=== PATIENT | female | born 1965 | race Caucasian/White ===

== ENCOUNTER → 2021-01-17 13:56 | Outpatient (CLI) | payer MEDICARE, MEDICAID, SELFPAY ==
--- NOTE | 2021-01-17 14:08 | VDLE_ITS ---
Reason For Study: Pain RIGHT LEFT GSV is normal. CFV is compressible, spontaneous, phasic, CFV is compressible, spontaneous, phasic, competent, and demonstrates normal competent and demonstrates normal augmentation. augmentation. FV is compressible, spontaneous, phasic, competent and demonstrates normal augmentation. POP V is compressible, spontaneous, phasic, competent and demonstrates normal augmentation. T/P Trunk is compressible. PTV is compressible. RT PerV is compressible. Procedure This is a venous duplex using B-mode, color flow and spectral Doppler. Exam performed in department. A preliminary report was called and/or faxed to [facility]. VL/Venous Duplex US, Unilateral Interpretation Summary There is no evidence of right lower extremity deep vein thrombosis. Right great saphenous vein appears patent and compressible segmentally. Normal flow patterns left common f emoral vein Ordering Physician: Reji Carr Referring Physician: Reji Carr Performed By: Elizabeth Spann RVT
== END ==
PROVIDERS: PCP Nurse Practitioner Primary Care; Referring Provider Nurse Practitioner Primary Care; Visit Provider Nurse Practitioner Primary Care
DX: M79.661 Pain in right lower leg (principal); I83.811 Varicose veins of right lower extremity with pain
CPT/HCPCS: 93971

== ENCOUNTER 2022-12-20 12:47 | Emergency (ER) | payer MEDICARE, MEDICAID, SELFPAY ==
[2022-12-20 12:48] VITALS: BP 141/99; PULSE 80; RESP 18; TEMP 36.4; O2SAT 92
--- NOTE | 2022-12-20 12:58 | CT_ITS ---
STUDY: CT ABDOMEN AND PELVIS WITH CONTRAST REASON FOR EXAM: Female, 57 years old. LLQ abd pain RADIATION DOSAGE (If Supplied By Facility): CTDIvol = ( 21.67 ) mGy, DLP = ( 1243.11 ) mGycm TECHNIQUE: Transaxial images were obtained from the dome of the diaphragm to the symphysis pubis without oral contrast. IV 100mL Isovue-370 was administered. Sagittal and coronal images were reconstructed. Individualized dose optimization techniques were used for this CT. COMPARISON: None. FINDINGS: There is elevation of the left hemidiaphragm with lower lung atelectasis. The visualized portions of the heart are within normal limits. Normal liver. There is non-visualization of the gallbladder, which may be secondary to either contraction or a prior cholecystectomy. Normal spleen. Normal pancreas. There is left adrenal enlargement. Normal right kidney. Normal left kidney. Normal visualized stomach. Normal small intestine. There is diverticulosis, with thickening of the descending colon wall, and pericolonic inflammation changes consistent with acute diverticulitis. The appendix is visualized and appears normal. There is diffuse atherosclerotic calcification of the abdominal aorta, without a demonstrated aneurysm. Normal inferior vena cava. Normal retroperitoneum. Normal urinary bladder. There is absence of the uterus consistent with a prior hysterectomy. There is no free fluid in the abdomen or pelvis. Normal abdominal wall. There are diffuse degenerative changes of the visualized lumbar spine. CT/Abdomen/Pelvis W IV Cont ONLY IMPRESSION: Acute diverticulitis. No obstruction or abscess. Electronically Signed: Negrito Hinds MD at 14:26 EDT ,
--- NOTE | 2022-12-20 13:04 | EX.ED.DYSGE1 ---
HPI <TIFFANIE Ornelas - Last Filed: 12/20/22 14:46> History of Present Illness Chief Complaint: Abd Pain Narrative Narrative: Patient is a 57-year-old female with history of COPD, tobacco history, hypertension who presents to the emergency department with 2 weeks of left lower quadrant abdominal pain. Patient states that has been ongoing for the last 2 weeks intermittently, today, pain was the worst in her left lower quadrant feeling like pressure and burning. She did have 2 episodes of vomitus. She denies any change in her bowel habits, denies any urinary symptoms. Denies any fever or chills. PFSH <TIFFANIE Ornelas - Last Filed: 12/20/22 14:46> [facility] Medical History (Updated 12/20/22 @ 14:43 by TIFFANIE Ornelas) COPD (chronic obstructive pulmonary disease) Home Medications albuterol sulfate 2.5 mg/3 mL (0.083 %) solution for nebulization 2.5 mg inhalation Q4H PRN PRN wheezing/sob 12/20/22 [History Last Taken Unknown] albuterol sulfate 90 mcg/actuation aerosol inhaler 90 mcg inhalation Q4H PRN PRN wheezing/sob 12/20/22 [History Last Taken Unknown] budesonide-formoterol HFA 160 mcg-4.5 mcg/actuation aerosol inhaler (Symbicort) 2 inh inhalation BID 12/20/22 [History Last Taken Unknown] bupropion HCl 300 mg 24 hr tablet, extended release 300 mg PO DAILY 12/20/22 [History Last Taken Unknown] ciprofloxacin HCl 500 mg tablet (Cipro) 500 mg PO BID #20 tabs 12/20/22 [Rx Last Taken Unknown] fluticasone propionate 50 mcg/actuation nasal spray,suspension 2 spray intranasal DAILY 12/20/22 [History Last Taken Unknown] furosemide 20 mg tablet 20 mg PO DAILY 12/20/22 [History Last Taken Unknown] hydrochlorothiazide 25 mg tablet 25 mg PO DAILY 12/20/22 [History Last Taken Unknown] ipratropium bromide 0.02 % solution for inhalation 2.5 ml inhalation Q6H PRN PRN wheezing/sob 12/20/22 [History Last Taken Unknown] lorazepam 0.5 mg tablet 0.5 mg PO DAILY 12/20/22 [History Last Taken Unknown] metronidazole 500 mg tablet 500 mg PO TID #30 tabs 12/20/22 [Rx Last Taken Unknown] nitroglycerin 0.4 mg sublingual tablet 0.4 mg sublingual Q5M PRN Chest Pain 12/20/22 [History Last Taken Unknown] ondansetron 4 mg disintegrating tablet 4 mg PO Q8H PRN PRN Nausea #10 tabs 12/20/22 [Rx Last Taken Unknown] oxycodone-acetaminophen 5 mg-325 mg tablet (Percocet) 1 tab PO Q8H PRN pain 3 days #10 tabs 12/20/22 [Rx Last Taken Unknown] potassium chloride 10 mEq capsule,extended release 10 meq PO BID 12/20/22 [History Last Taken Unknown] rosuvastatin 5 mg tablet 5 mg PO QHS 12/20/22 [History Last Taken Unknown] sertraline 50 mg tablet 50 mg PO DAILY 12/20/22 [History Last Taken Unknown] trazodone 100 mg tablet 300 mg PO DAILY 12/20/22 [History Last Taken Unknown] Allergy/AdvReac Type Severity Reaction Status Date / Time diphenhydramine HCl Allergy Anaphylaxis Verified 12/20/22 12:48 [From Benadryl] Penicillins Allergy Rash Verified 12/20/22 12:48 Social History Smoking Status: Current every day smoker tobacco type: cigarettes ROS <TIFFANIE Ornelas - Last Filed: 12/20/22 14:46> ROS ED ROS Narrative Constitutional: Negative for fever, chills, weight loss, weakness Eyes: Negative for vision loss, vision change, double vision ENT: Negative for any sore throat, ear pain, congestion Cardiovascular: Negative for any chest pain, tightness, palpitations Respiratory: Negative for any cough, sputum production, hemoptysis, dyspnea, dyspnea on exertion, orthopnea Gastrointestinal: Negative for any a diarrhea, constipation, blood in stool, blood in vomit. Positive left lower quadrant abdominal pain, nausea, vomiting : Negative for any urinary frequency, dysuria, retention, blood in urine Muscle skeletal: Negative for any muscle joint pain, stiffness, myalgias, arthralgias, neck pain, back pain Neurological: Negative for any headache, syncope, numbness or tingling, dizziness Skin: Negative for any rashes, lumps, itching, abrasions, lacerations Psychiatric: Negative for any depression, anxiety, stress, suicidal ideation, homicidal ideation Hematologic: Negative for any easy bruising, excessive bruising, easy bleeding Allergies: Negative for any eczema, hives, rash EXAM <TIFFANIE Ornelas - Last Filed: 12/20/22 14:46> Physical Exam Narrative Exam Narrative: Vital signs reviewed. HEET: Head normocephalic atraumatic, TMs clear bilaterally. Posterior pharynx is clear, moist mucous membranes. Nares clear bilaterally. Neck: Supple with no lymphadenopathy or tenderness. No signs of meningismus, negative jolt sign. Cardiac: Regular rate and rhythm no murmurs gallops or rubs, equal peripheral pulses bilaterally. Respiratory: Lungs clear to auscultation bilaterally. No chest tenderness. Abdomen: Soft, nondistended. No abdominal bruit or pulsatile masses. No hepatosplenomegaly. Patient has pain to the left lower quadrant palpation. Active bowel sounds in all quadrants. Negative for any Smith sign. No pain to the right lower quadrant. Extremities: No peripheral edema, no signs of gross trauma or deformity. Active full range of motion of all extremities. Neuro: Cranial nerves II through XII intact, no focal neurological deficits. Skin: Clean dry and intact with no rash, purpura, petechiae, vesicles or pustules. Backs/flank: No CVA tenderness, no midline spinal tenderness, no deformity. Psych: Normal mood and affect. No SI, HI or acute psychosis. Const Vital Signs: 12/20/22 12:48 Temperature 97.6 F L Temperature Source Temporal Pulse Rate 80 Respiratory Rate 18 Blood Pressure 141/99 H Blood Pressure Mean 113 Pulse Ox 92 Oxygen Delivery Method Room Air <Dr. Heriberto Gill MD - Last Filed: 12/20/22 14:08> Physical Exam Const Vital Signs: 12/20/22 12:48 Temperature 97.6 F L Temperature Source Temporal Pulse Rate 80 Respiratory Rate 18 Blood Pressure 141/99 H Blood Pressure Mean 113 Pulse Ox 92 Oxygen Delivery Method Room Air MDM <TIFFANIE Ornelas - Last Filed: 12/20/22 14:46> MDM Lab Data Labs: Laboratory Results - last 24 hr 12/20/22 12/20/22 12/20/22 13:00 13:00 13:15 WBC 11.5 H RBC 5.35 Hgb 16.6 H Hct 49.6 H MCV 92.7 MCH 31.0 MCHC 33.5 RDW Std Deviation 44.9 H RDW Coeff of [place] 13.1 Plt Count 259 MPV 9.2 Immature Gran % (Auto) 0.300 Neut % (Auto) 66.9 Lymph % (Auto) 20.7 [place] % (Auto) 7.1 Eos % (Auto) 4.4 Baso % (Auto) 0.6 Absolute Neuts (auto) 7.7 Absolute Lymphs (auto) 2.38 Nucleated RBC % 0 Sodium 138 Potassium 2.9 L Chloride 100 Carbon Dioxide 34.0 H Anion Gap 4 L BUN 20 H Creatinine 1.12 H Est GFR (MDRD) Af Amer 64 Est GFR (MDRD) Non-Af 53 L BUN/Creatinine Ratio 17.9 Glucose 139 H Calcium 9.2 Urine Color Yellow Urine Clarity Sl. Cloudy Urine pH 5.0 Ur Specific [place] 1.020 Urine Protein 30 H Urine Glucose (UA) Normal Urine Ketones 5 H Urine Occult Blood 250 H Urine Nitrite Negative Urine Bilirubin 1 H Urine Urobilinogen 4 H Ur Leukocyte Esterase 500 H Urine RBC 10-25 SEEN Urine WBC 25-50 SEEN Ur Squamous Epith Cells 5-10 SEEN Urine Bacteria 2+ Urine Mucus 0 SEEN Radiography Diagnostic Testing: Clinical Impression(s) from Imaging Studies Abdomen/Pelvis CT 12/20/22 12:58 IMPRESSION: Acute diverticulitis. No obstruction or abscess. Electronically Signed: Negrito Hinds MD at 14:26 EDT , Treatment and Re-Evaluation :: Patient appears to be in mild distress secondary to left lower quadrant abdominal pain, patient's vital signs are stable, patient appears nontoxic. Patient presents emerged part with left lower quad abdominal pain on and off for 2 weeks much worse today. Patient will receive a full abdominal work-up with CBC, BMP, urinalysis. Patient will receive a CT scan of the abdomen pelvis concerning for diverticulitis, bowel obstruction. Patient's laboratory values show slight leukocytosis white blood count 11.5, H&H showed a hemoglobin of 16.6 with hematocrit of 49.6. Patient potassium was slightly low at 2.9, this was replaced with oral potassium. Patient creatinine was slightly elevated at 1.12 however she is baseline at 0.8-0.9. Glucose is 139. Patient did receive a CT scan of the abdomen pelvis IV contrast. This showed acute diverticulitis, no other obstruction or abscess. Patient was started on Cipro, Flagyl here in the emergency department, this is secondary to her penicillin allergy. She will be given a short course of pain medicine as well. There was possibly that the urine might be infected, this will be treated with the Cipro as well. Patient was given return precautions, all questions were answered. She will follow-up closely with her PCP. She understand that she needs to take the antibiotics until completion. Patient stable for discharge <Dr. Heriberto Gill MD - Last Filed: 12/20/22 14:08> [facility] MDM Narrative Medical decision making narrative: I have personally performed a face to face assessment of the patient and have reviewed the HANK Note. I performed a substantive portion of the visit including all aspects of the following. My huston findings include: History is 57-year-old female prior cholecystectomy and hysterectomy. Presents with a about 2-week history of left lower quadrant abdominal pain. No vomiting or diarrhea. No fever. No dysuria. No prior history of diverticulosis/itis that she is aware of. Denies abdominal trauma. No weight loss. Evaluated this patient with our nurse practitioner. Exam is [57-year-old female no acute distress. Vital signs stable afebrile. HEENT exam normal. Lungs clear. Heart regular rhythm rate about 80. Abdomen soft nondistended. Normal bowel sounds no peritoneal signs. Tender left lower quadrant only. Left upper and right side abdomen are nontender. No McBurney's point tenderness. No hernia. No signs of obstruction. Moving all 4 extremities. Back nontender. Neurologically awake and alert.] Medical Decision Making [57-year-old female left lower quadrant abdominal pain suspicion for diverticulitis versus other etiologies. Abdominal work-up including labs and CT. Treated with morphine and Zofran.] Other additions or changes: [None] History & Record Review Discussion w/independent historian: Patient Additional record(s) reviewed:: Prior inpatient record, Prior outpatient record, Prior ED visit and Prior labs Lab Data Attestation: I reviewed the patient's lab results. Lab results narrative: CBC shows a white count 11.5. H&H is 16 and 49. Platelets 259. Labs: Laboratory Results - last 24 hr 12/20/22 12/20/22 12/20/22 13:00 13:00 13:15 WBC 11.5 H RBC 5.35 Hgb 16.6 H Hct 49.6 H MCV 92.7 MCH 31.0 MCHC 33.5 RDW Std Deviation 44.9 H RDW Coeff of [place] 13.1 Plt Count 259 MPV 9.2 Immature Gran % (Auto) 0.300 Neut % (Auto) 66.9 Lymph % (Auto) 20.7 [place] % (Auto) 7.1 Eos % (Auto) 4.4 Baso % (Auto) 0.6 Absolute Neuts (auto) 7.7 Absolute Lymphs (auto) 2.38 Nucleated RBC % 0 Sodium 138 Potassium 2.9 L Chloride 100 Carbon Dioxide 34.0 H Anion Gap 4 L BUN 20 H Creatinine 1.12 H Est GFR (MDRD) Af Amer 64 Est GFR (MDRD) Non-Af 53 L BUN/Creatinine Ratio 17.9 Glucose 139 H Calcium 9.2 Urine Color Yellow Urine Clarity Sl. Cloudy Urine pH 5.0 Ur Specific [place] 1.020 Urine Protein 30 H Urine Glucose (UA) Normal Urine Ketones 5 H Urine Occult Blood 250 H Urine Nitrite Negative Urine Bilirubin 1 H Urine Urobilinogen 4 H Ur Leukocyte Esterase 500 H Urine RBC 10-25 SEEN Urine WBC 25-50 SEEN Ur Squamous Epith Cells 5-10 SEEN Urine Bacteria 2+ Urine Mucus 0 SEEN Radiography Diagnostic Testing: Clinical Impression(s) from Imaging Studies Abdomen/Pelvis CT 12/20/22 12:58 IMPRESSION: Acute diverticulitis. No obstruction or abscess. Electronically Signed: Negrito Hinds MD at 14:26 EDT , Discharge Plan Triage Chief Complaint: Abd Pain ED Midlevel Provider: Sal Cruz ED Provider: Heriberto Gill Dx/Rx/DC Orders Clinical Impression: Acute diverticulitis, Acute hypokalemia Instructions: Diverticulitis Dc, ED Diverticulitis Prescriptions: New oxycodone-acetaminophen [Percocet] 5-325 mg tablet 1 tab PO Q8H PRN (Reason: pain) 3 Days Qty: 10 0RF ondansetron 4 mg tablet,disintegrating 4 mg PO Q8H PRN PRN (Reason: Nausea) Qty: 10 0RF ciprofloxacin HCl [Cipro] 500 mg tablet 500 mg PO BID Qty: 20 0RF metronidazole 500 mg tablet 500 mg PO TID Qty: 30 0RF No Action potassium chloride 10 mEq capsule, extended release 10 meq PO BID albuterol sulfate 2.5 mg /3 mL (0.083 %) solution for nebulization 2.5 mg inhalation Q4H PRN PRN (Reason: wheezing/sob) Label Comments: Use 3 mL via nebulizer every 4 hours as needed for wheezing/shortness of breath. J44.9 lorazepam 0.5 mg tablet 0.5 mg PO DAILY trazodone 100 mg tablet 300 mg PO DAILY nitroglycerin 0.4 mg Tablet, Sublingual 0.4 mg SUBLINGUAL Q5M PRN (Reason: Chest Pain) Rx Instructions: do not exceed 3 doses per episode hydrochlorothiazide 25 mg tablet 25 mg PO DAILY furosemide 20 mg tablet 20 mg PO DAILY albuterol sulfate 90 mcg/actuation HFA aerosol inhaler 90 mcg INHALATION Q4H PRN PRN (Reason: wheezing/sob) Label Comments: Inhale 2 Puffs as instructed every 4 hours as needed for wheezing/shortness of breath. fluticasone propionate 50 mcg/actuation spray,suspension 2 spray INTRANASAL DAILY sertraline 50 mg tablet 50 mg PO DAILY ipratropium bromide 0.02 % solution 2.5 ml inhalation Q6H PRN PRN (Reason: wheezing/sob) rosuvastatin 5 mg tablet 5 mg PO QHS Label Comments: Take 1 tablet by mouth daily at bedtime. bupropion HCl 300 mg tablet extended release 24 hr 300 mg PO DAILY budesonide-formoterol [Symbicort] 160-4.5 mcg/actuation HFA aerosol inhaler 2 inh INHALATION BID Primary Care Provider: Reji Carr NP Referrals: Reji Carr NP, [facility] PROFESSIONAL[facility] [Primary Care Provider] - Activity Restrictions/Additional Instructions: Take antibiotics as prescribed. Finish the course. Use pain medicine, nausea medicine as needed Disposition Disposition: Home, Self Care
[2022-12-20] MEDS: 0.9% Normal Saline 1,000 ML 1000 ML IV (13:07)
[2022-12-20] MEDS: Ondansetron 4 MG/2 ML Vial IV (13:07)
[2022-12-20 13:08] LABS: Absolute Lymphocyte Count 2.38 X10^3/uL (0.83-4.51); Absolute Neutrophil Count 7.7 X10^3/uL (2.0-7.7); Basophil# 0.07 X10^3/uL; Basophil% 0.6 % (0-1); Eosinophils% 4.4 % (0-5); Hematocrit 49.6 % (37-47); Hemoglobin 16.6 g/dL (12.0-15.0); Lymphocyte # 2.38 X10^3/ul (0.83-4.51); Lymphocyte % 20.7 % (19-41); Mean Corp Hgb Conc 33.5 g/dL (32-36); Mean Corpuscular Volume 92.7 fL (81-99); Mean Platelet Vol. 9.2 fl (6.2-12.0); Monocyte# 0.81 X10^3/uL; Monocyte% 7.1 % (0-10); NRBC Flagged by Analyzer 0 % (0-5); Neutrophil # 7.68 X10^3/uL (2.7-7.7); Neutrophil % 66.9 % (47-70); Platelet Count 259 K/mm3 (150-450); RBC Distribution Width CV 13.1 % (11.6-14.6); RBC Distribution Width SD 44.9 fl (35.1-43.9); Red Blood Count 5.35 M/mm3 (4.2-5.4); White Blood Count 11.5 K/mm3 (4.4-11.0)
[2022-12-20] MEDS: Morphine 4 MG/ML Syringe IV (13:08)
[2022-12-20 13:21] LABS: Anion Gap 4 (5-15); BUN 20 mg/dL (7-18); BUN/Creat Ratio 17.9 RATIO (10-20); Calcium,Total 9.2 mg/dL (8.5-10.1); Chloride 100 mmol/L (98-107); Creatinine, Serum 1.12 mg/dL (0.55-1.02); EST Glomerular Filtration Rate 53 mL/min (>60); Est Glom Filt Rate - Afr Amer 64 mL/min (>60); Glucose 139 mg/dL (74-106); Potassium 2.9 mmol/L (3.5-5.1); Sodium Level 138 mmol/L (136-145)
[2022-12-20 13:27] LABS: Mucous, Urine 0 SEEN /hpf (<or=2+)
[2022-12-20 13:29] LABS: Color, Urine Yellow (Yellow); Glucose, Dipstick Normal (Normal); Ketone-Dipstick 5 mg/dl (Negative); Leukocyte Esterase-Dipstick 500 /ul (Negative); Nitrite-Dipstick Negative (Negative); Occult Blood-Urine 250 /ul (Negative); Protein-Dipstick 30 mg/dl (Negative); Urine Clarity Sl. Cloudy (Clear); Urine Urobilinogen 4 mg/dl (Normal)
[2022-12-20 13:31] LABS: Urine Bilirubin Dipstick 1 mg/dL (Negative)
[2022-12-20 13:39] LABS: Bacteria 2+ /hpf (None Seen); Red Blood Cells-Urine 10-25 SEEN /hpf (0-5); Squamous Epithelial Cells - UA 5-10 SEEN /hpf (5-10); White Blood Cells 25-50 SEEN /hpf (0-5)
[2022-12-20] MEDS: Potassium Chloride Oral Tablet 20 MEQ 40 MEQ PO (13:42)
[2022-12-20 13:44] VITALS: BMI 35.7
[2022-12-20] MEDS: metroNIDAZOLE 500 MG Tablet PO (14:44)
[2022-12-20] MEDS: Ciprofloxacin 500 MG Tablet PO (14:44)
== END 2022-12-20 14:54 | disposition home or self-care (01) ==
PROVIDERS: Emergency Provider Emergency Medicine; PCP Nurse Practitioner Primary Care; Referring Provider Emergency Medicine; Visit Provider Emergency Medicine
DX: K57.92 Diverticulitis of intestine, part unspecified, without perforation or abscess without bleeding (principal); J44.9 Chronic obstructive pulmonary disease, unspecified; E87.6 Hypokalemia; F17.210 Nicotine dependence, cigarettes, uncomplicated; I10 Essential (primary) hypertension
CPT/HCPCS: 74177; 80048; 81001; 85025; 96361; 96374; 96375; 99284; J7030; Q9967; A4216; J2405

== ENCOUNTER 2025-02-06 19:25 | Emergency (ER) | payer MEDICARE, MEDICAID, SELFPAY ==
[2025-02-06 19:26] VITALS: BP 134/79; PULSE 68; RESP 26; TEMP 35.5; O2SAT 97
[2025-02-06 20:37] VITALS: PULSE 87; RESP 20
[2025-02-06] MEDS: Albuterol 2.5 MG/3 ML VIAL.NEB. INHALATION ×3 (20:37→21:01)
[2025-02-06] MEDS: Ipratropium/Albuterol Sulfate 3 ML AMPUL.NEB INHALATION (20:37)
--- NOTE | 2025-02-06 20:51 | EX.ED.DYSGE1 ---
HPI History of Present Illness Chief Complaint: Shortness of Breath Detail of Chief Complaint: Hypoxia, difficulty breathing, wheezing and nonproductive cough Informant: patient Onset/Context/Timing Onset: Today (Suddenly worse today otherwise gradual) Timing: Continuous and Waxes and wanes Quality: Hypoxia with reading in the 60s on home oxygen 5 L Location: Respiratory Current Severity: Mild Maximum Severity: Severe Worsened by: Activity Relieved by: Uncertain Associated Symptoms Associated Symptoms: Nonproductive cough and wheezing. She is on inhalers at home. Narrative Narrative: Patient is a 59-year-old female who presents because of low pulse ox, nonproductive cough and altered mental status. Apparently took some time to get her oxygen saturation above 90%. She states she is here because of low oxygen. She is on hospice however she is a full go. Specifically discussed if she has a living well, CPR, and invasive ventilation i.e. intubation etc. She wants everything done. Patient denies fever or chills. She denies rhinorrhea, congestion postnasal drainage. She denies sore throat. She states yesterday she had some left sided chest pain or maybe heartburn. She has no known history of coronary artery disease. She states she sees Dr. Sanju Savage. I do not see any office notes from pulmonary in the last 2 to 3 years. Prior similar symptoms: Yes (Now with respect to the left-sided chest pain) Recent Illness/Hospitalization: Yes (Last ED visit was November 2022 for diverticulitis.) [facility] Medical History COPD (chronic obstructive pulmonary disease) Home Medications ?Medication ?Instructions ?Recorded ?Last Taken ?Type albuterol sulfate 2.5 mg/3 mL 2.5 mg inhalation Q4H PRN PRN 12/20/22 Unknown History (0.083 %) solution for nebulization wheezing/sob albuterol sulfate 90 mcg/actuation 90 mcg inhalation Q4H PRN PRN 12/20/22 Unknown History aerosol inhaler wheezing/sob budesonide-formoterol HFA 160 2 inh inhalation BID 12/20/22 Unknown History mcg-4.5 mcg/actuation aerosol inhaler (Symbicort) bupropion HCl 300 mg 24 hr tablet, 300 mg PO DAILY 12/20/22 Unknown History extended release ciprofloxacin HCl 500 mg tablet 500 mg PO BID #20 tabs 12/20/22 Unknown Rx (Cipro) fluticasone propionate 50 2 spray intranasal DAILY 12/20/22 Unknown History mcg/actuation nasal spray,suspension furosemide 20 mg tablet 20 mg PO DAILY 12/20/22 Unknown History hydrochlorothiazide 25 mg tablet 25 mg PO DAILY 12/20/22 Unknown History ipratropium bromide 0.02 % 2.5 ml inhalation Q6H PRN PRN 12/20/22 Unknown History solution for inhalation wheezing/sob lorazepam 0.5 mg tablet 0.5 mg PO DAILY 12/20/22 Unknown History metronidazole 500 mg tablet 500 mg PO TID #30 tabs 12/20/22 Unknown Rx nitroglycerin 0.4 mg sublingual 0.4 mg sublingual Q5M PRN Chest 12/20/22 Unknown History tablet Pain ondansetron 4 mg disintegrating 4 mg PO Q8H PRN PRN Nausea #10 tabs 12/20/22 Unknown Rx tablet oxycodone-acetaminophen 5 mg-325 1 tab PO Q8H PRN pain 3 days #10 12/20/22 Unknown Rx mg tablet (Percocet) tabs potassium chloride 10 mEq 10 meq PO BID 12/20/22 Unknown History capsule,extended release rosuvastatin 5 mg tablet 5 mg PO QHS 12/20/22 Unknown History sertraline 50 mg tablet 50 mg PO DAILY 12/20/22 Unknown History trazodone 100 mg tablet 300 mg PO DAILY 12/20/22 Unknown History doxycycline monohydrate 100 mg 100 mg PO BID #14 CAPSULES 02/06/25 Unknown Rx capsule prednisone 20 mg tablet 60 mg (3 x 20 mg) PO DAILY #15 02/06/25 Unknown Rx TABLETS Allergy/AdvReac Type Severity Reaction Status Date / Time diphenhydramine HCl (From Allergy Anaphylaxis Verified 02/06/25 19:27 Benadryl) Penicillins Allergy Rash Verified 02/06/25 19:27 Social History Smoking Status: Current every day smoker tobacco type: cigarettes ROS ROS ED Constitutional Constitutional ED: Denies chills, fever(s), subjective or sweats Eyes Eyes: Denies blurry vision, change in vision or diplopia ENT ENT ED: Denies ear pain, rhinorrhea or sore throat Cardiovascular Cardiovascular: Reports chest pain and orthopnea; Denies palpitations, paroxysmal nocturnal dyspnea or racing heartbeat Respiratory/Chest Respiratory/Chest: Reports cough, dyspnea, dyspnea on exertion, orthopnea and other Details: Patient has stable 4 pillow orthopnea. ; Denies paroxysmal nocturnal dyspnea or sputum Gastrointestinal Gastrointestinal: Denies abdominal pain, constipation, diarrhea, melena, nausea or vomiting Musculoskeletal Musculoskeletal: Denies arthralgias, back pain, myalgias or neck pain Integumentary Denies rash Neurologic Neurologic: Reports weakness Psychiatric Psychiatric: Denies anxiety Hematologic/Lymphatic Hematologic/Lymphatic: Reports systems reviewed and no addt'l complaints, except as documented EXAM Physical Exam Const Vital Signs: 02/06/25 19:26 Temperature 95.9 F L Temperature Source Temporal Pulse Rate 68 Respiratory Rate 26 H Blood Pressure 134/79 H Blood Pressure Mean 97 Pulse Ox 97 Oxygen Delivery Method Nasal Cannula Oxygen Flow Rate (L/min) 5 Positive well nourished and well developed General Appearance ED: well developed; Negative for cyanotic, diaphoretic, NAD or pallor HEENT Reports TM's clear and moist mucous membranes; Denies dry mucous membranes Negative for trauma or tenderness Tympanic Membrane ED: Yes TM's clear Mouth ED: No dry mucous membranes Mouth: No dry mucous membranes Eyes PERRL and EOMs intact bilaterally General Eye ED: Negative for pale conjunctiva or scleral icterus Neck no lymphadenopathy, supple and no JVD Chest Wall inspection of chest normal and palpation of chest normal Resp No normal respiratory effort and No clear to auscultation bilaterally Resp Narrative: Mild use of accessory muscles. There is no retractions. Patient has expiratory wheezing throughout. There is rales noted at the bases as well. Cardio regular rate, regular rhythm, S1 normal heart sound, S2 normal heart sound and no murmurs GI normal to inspection, nondistended, normoactive bowel sounds, non-tender, non-distended and no masses; Negative for hepatosplenomegaly Back/Spine no CVA tenderness Extremity normal to inspection Extremity Narrative: There is no discoloration, swelling, asymmetry, leg vein distention, palpable cords tenderness on the distribution deep venous system. General Extremety ED: Yes edema General Extremity: edema Neuro oriented x3 and CN's II-XII intact bilaterally Sensorium / Orientation: alert Psych mental status grossly normal Skin no rashes or lesions noted, no wounds and skin turgor normal General Skin Exam: Negative for jaundice or pallor MDM MDM MDM Narrative Medical decision making narrative: Differential diagnosis exacerbated COPD with bronchospasm due to viral versus bacterial infection. Pneumonia exacerbating her COPD/bronchiectasis, because of her altered mental status obtain ABG to assess pH, CO2 and AA gradient. CBC was obtained assess white count and differential as well as H&H to rule out anemia since she appears pale. Competence of metabolic panel and lactate to assess for endorgan dysfunction. Patient was treated with DuoNeb followed by albuterol and since she is presently on prednisone she received 125 mg dose of Solu-Medrol since she is stressed and need to consider adrenal insufficiency. As well as exacerbation of her COPD History & Record Review Additional record(s) reviewed:: Prior outpatient record Lab Data Labs: Laboratory Results - last 24 hr 02/06/25 21:03 WBC 9.1 RBC 5.34 Hgb 16.1 H Hct 53.2 H MCV 99.6 H MCH 30.1 MCHC 30.3 L RDW Std Deviation 56.4 H RDW Coeff of Clemente 15.1 H Plt Count 252 MPV 9.5 Immature Gran % (Auto) 0.400 Neut % (Auto) 59.1 Lymph % (Auto) 29.4 Ceiba % (Auto) 8.2 Eos % (Auto) 2.4 Baso % (Auto) 0.5 Absolute Neuts (auto) 5.4 Absolute Lymphs (auto) 2.68 Nucleated RBC % 0 Sodium Cancelled Potassium Cancelled Chloride Cancelled Carbon Dioxide Cancelled Anion Gap Cancelled BUN Cancelled Creatinine Cancelled Estim Creat Clear Calc Cancelled Est GFR (MDRD) Non-Af Cancelled BUN/Creatinine Ratio Cancelled Glucose Cancelled Calcium Cancelled Total Bilirubin Cancelled AST Cancelled ALT Cancelled Alkaline Phosphatase Cancelled Total Protein Cancelled Albumin Cancelled Globulin Cancelled Albumin/Globulin Ratio Cancelled ABG Data ABG results: ABG 02/06/25 21:04 Specimen Type ART Sample Site L Radial pH 7.29 L Bicarbonate Actual 39.8 H Total CO2 42 Base Excess 13 H O2 Saturation 90 L O2 % 5.0 ABG pCO2 83.6 H* ABG pO2 68 L O2 Delivery Device Not entered Vent Mode Not entered Crit Call To/Read Back Yes Treatment and Re-Evaluation :: Respiratory therapist told me she declined BiPAP. X-ray battery technician told me she declined x-ray. When I entered the room to ask why she is declining treatment and imaging she was on the phone with Harman Reynoso. He was placed on speaker phone per her request. He informing that she does not want invasive ventilation i.e. life support. She presently is declining BiPAP. She was informed of risks involved. In my professional medical opinion patient has capacity to decline medical treatment and admission to the hospital and truly understands the risks. Critical Care Time Critical Care Time: Yes Critical care time (excluding procedures): 30-74 minutes (22), Including time spent: (History, physical, documentation, interpretation of ABG which reveals acute on chronic hypercapnia and hypoxia with evidence of respiratory acidosis.), Discussing w/Patient &/or Family/Nut Packer (Patient and friend) and Performing Direct Patient Care at Bedside Discharge Plan Triage Chief Complaint: Shortness of Breath ED Provider: Mason Styles Dx/Rx/DC Orders Clinical Impression: Acute on chronic respiratory failure with hypoxia and hypercapnia, Acute bronchospasm, Lymphedema, Left-sided chest pain, DNR (do not resuscitate) discussion, DNR no code (do not resuscitate), History of coronary artery disease Instructions: ED COPD Flare Prescriptions: New prednisone 20 mg tablet 60 mg PO DAILY Qty: 15 0RF doxycycline monohydrate 100 mg capsule 100 mg PO BID Qty: 14 0RF No Action potassium chloride 10 mEq capsule, extended release 10 meq PO BID albuterol sulfate 2.5 mg /3 mL (0.083 %) solution for nebulization 2.5 mg inhalation Q4H PRN PRN (Reason: wheezing/sob) Patient Comments: Use 3 mL via nebulizer every 4 hours as needed for wheezing/shortness of breath. J44.9 lorazepam 0.5 mg tablet 0.5 mg PO DAILY trazodone 100 mg tablet 300 mg PO DAILY nitroglycerin 0.4 mg Tablet, Sublingual 0.4 mg SUBLINGUAL Q5M PRN (Reason: Chest Pain) Rx Instructions: do not exceed 3 doses per episode hydrochlorothiazide 25 mg tablet 25 mg PO DAILY furosemide 20 mg tablet 20 mg PO DAILY albuterol sulfate 90 mcg/actuation HFA aerosol inhaler 90 mcg INHALATION Q4H PRN PRN (Reason: wheezing/sob) Patient Comments: Inhale 2 Puffs as instructed every 4 hours as needed for wheezing/shortness of breath. fluticasone propionate 50 mcg/actuation spray,suspension 2 spray INTRANASAL DAILY sertraline 50 mg tablet 50 mg PO DAILY ipratropium bromide 0.02 % solution 2.5 ml inhalation Q6H PRN PRN (Reason: wheezing/sob) rosuvastatin 5 mg tablet 5 mg PO QHS Patient Comments: Take 1 tablet by mouth daily at bedtime. bupropion HCl 300 mg tablet extended release 24 hr 300 mg PO DAILY budesonide-formoterol [Symbicort] 160-4.5 mcg/actuation HFA aerosol inhaler 2 inh INHALATION BID oxycodone-acetaminophen [Percocet] 5-325 mg tablet 1 tab PO Q8H PRN (Reason: pain) 3 Days Qty: 10 0RF ondansetron 4 mg tablet,disintegrating 4 mg PO Q8H PRN PRN (Reason: Nausea) Qty: 10 0RF ciprofloxacin HCl [Cipro] 500 mg tablet 500 mg PO BID Qty: 20 0RF metronidazole 500 mg tablet 500 mg PO TID Qty: 30 0RF Primary Care Provider: Reji Carr NP Referrals: Reji Carr [employer] TI[employer] RECAPPER, [employer]-C [Primary Care Provider] - As soon as possible Activity Restrictions/Additional Instructions: I have been informed by Dr. Styles that I am seriously ill and need to be admitted to the hospital. I have declined treatment, x-ray, and wish to go home. I have been informed this may result in more invasive treatment and prolonged treatment by leaving AGAINST MEDICAL ADVICE. I have been informed this may result in me requiring respiratory support, inability to perform 1 or more activities of daily living, which was explained to me, need an feeding tube, seizure disorder, fall resulting in injury to my brain or bones, semivegetative the vegetative state or . I understand these risks and I am willing to take this risk. Print Language: Uzbek Disposition Disposition: Against Medical Advice Capacity Capacity Assessment Tool MEDICAL HOLD INDICATED IF YES TO ALL 3 QUESTIONS BELOW: Since patient has capacity even though she is at risk to herself and is demanding to leave hospital she signed out AGAINST MEDICAL ADVICE. Patient lacks Decision Making Capacity: unable to understand, reason and deliberate health related choices: No Risk to self and or others?: Yes Risk of leaving the patient care unit and or hospital?: Yes
[2025-02-06 21:01] VITALS: BP 158/97; PULSE 74; RESP 29; TEMP 36.4; O2SAT 97
[2025-02-06] MEDS: MethylPREDNISolone 125 MG/2 ML Vial IV (21:01)
[2025-02-06 21:07] LABS: Base Excess 13 mmol/L (-2 to +2); Bicarbonate 39.8 mmol/L (22-26); Blood Gas Specimen Type ART; Mode Not entered; O2 Delivery Device Not entered; PO2 68 mmHG (75-100); SITE L Radial; SO2 90 % (95-99); Total Carbon Dioxide 42 mmol/L; pCO2 83.6 mmHg (35-45); pH 7.29 (7.35-7.45)
[2025-02-06 21:44] LABS: Absolute Lymphocyte Count 2.68 X10^3/uL (0.83-4.51); Absolute Neutrophil Count 5.4 X10^3/uL (2.0-7.7); Basophil# 0.05 X10^3/uL; Basophil% 0.5 % (0-1); Eosinophil# 0.22 X10^3/uL; Eosinophils% 2.4 % (0-5); Hematocrit 53.2 % (37-47); Hemoglobin 16.1 g/dL (12.0-15.0); Lymphocyte # 2.68 X10^3/ul (0.83-4.51); Lymphocyte % 29.4 % (19-41); Mean Corp Hgb Conc 30.3 g/dL (32-36); Mean Corpuscular Hgb 30.1 pg (27.0-32.0); Mean Corpuscular Volume 99.6 fL (81-99); Mean Platelet Vol. 9.5 fl (6.2-12.0); Monocyte# 0.75 X10^3/uL; Monocyte% 8.2 % (0-10); NRBC Flagged by Analyzer 0 % (0-5); Neutrophil # 5.38 X10^3/uL (2.7-7.7); Neutrophil % 59.1 % (47-70); Platelet Count 252 K/mm3 (150-450); RBC Distribution Width CV 15.1 % (11.6-14.6); RBC Distribution Width SD 56.4 fl (35.1-43.9); Red Blood Count 5.34 M/mm3 (4.2-5.4); White Blood Count 9.1 K/mm3 (4.4-11.0)
[2025-02-06 21:53] LABS: Lactic Acid 1.1 mmol/L (0.0-2.0)
--- NOTE | 2025-02-06 22:00 | CPS ---
[2037] x3 Albuterol given to pt. in ER
--- NOTE | 2025-02-06 22:05 | ED.RN ---
pt states that she does not want a chest Xray. RN states that it is needed for diagnosis for increasing SOB. Pt states that she doesn't need it and just wants her breathing fixed. Attempted to place on BiPap, but pt refused. This RN explained the difference between intubation and BiPap, but pt still did not want BiPap and requested to leave AMA. Dr. Styles aware, signed paperwork.
== END 2025-02-06 22:05 | disposition left against medical advice (07) ==
PROVIDERS: Emergency Provider Emergency Medicine; PCP Nurse Practitioner Primary Care; Visit Provider Emergency Medicine
DX: J96.21 Acute and chronic respiratory failure with hypoxia (principal); J96.22 Acute and chronic respiratory failure with hypercapnia; J44.9 Chronic obstructive pulmonary disease, unspecified; R41.82 Altered mental status, unspecified; Z51.5 Encounter for palliative care; Z99.81 Dependence on supplemental oxygen; R07.89 Other chest pain; F17.210 Nicotine dependence, cigarettes, uncomplicated; J98.01 Acute bronchospasm; I89.0 Lymphedema, not elsewhere classified; Z66 Do not resuscitate; Z86.79 Personal history of other diseases of the circulatory system
CPT/HCPCS: 99284; 36600; 82803; 83605; 85025; 94640; A4216

== ENCOUNTER 2025-02-08 16:28 | Inpatient (IN) | payer MEDICARE, MEDICAID, SELFPAY ==
[2025-02-08] VITALS (12 sets, daily range): BP systolic 108–142; BP diastolic 60–94; PULSE 85–102; RESP 14–25; TEMP 36.9–37; O2SAT 92–96; BMI 38.9; BMI 37.4
--- NOTE | 2025-02-08 16:38 | EKG12_ITS ---
Test Reason : sob Blood Pressure : */* mmHG Vent. Rate : 82 BPM Atrial Rate : 84 BPM P-R Int : 142 ms QRS Dur : 90 ms QT Int : 360 ms P-R-T Axes : 70 55 81 degrees QTcB Int : 420 ms Sinus rhythm with marked sinus arrhythmia Otherwise normal ECG Premature atrial complexes Confirmed by Xavier Peralta ([id number]), writer editor CURTIS JONES ([id number]) on 02/13/2025 11:33:10 AM Referred By: Romain Chambers Confirmed By: Xavier Peralta
--- NOTE | 2025-02-08 16:49 | EX.ED.DYSGE1 ---
HPI <KIANA Ortega - Last Filed: 02/08/25 21:28> History of Present Illness Chief Complaint: Shortness of Breath Narrative Narrative: 59-year-old female with PMH of COPD, 1 PPD smoker presents with 5 days of increased shortness of breath and wheezing. She was seen here 2 days ago and had blood work and an arterial blood gas showing an elevated CO2. She states she refused a chest x-ray or BiPAP and left because she did not like the staff and did not want to be on BiPAP. She normally wears 5 L O2 at night but since then she has been wearing it continuously day and night. Her neighbor is here and states she seemed confused this morning but now seems normal. Patient denies fever or chills. She had some chest pain earlier this week but none today. She denies increased cough. PFSH <KIANA Ortega - Last Filed: 02/08/25 21:28> [facility] Medical History (Updated 02/08/25 @ 23:03 by Mirta Akins) GERD (gastroesophageal reflux disease) Asthma Hypertension Anxiety COPD (chronic obstructive pulmonary disease) Home Medications ?Medication ?Instructions ?Recorded ?Last Taken ?Type albuterol sulfate 2.5 mg/3 mL 2.5 mg inhalation Q4H PRN PRN 12/20/22 02/08/25 History (0.083 %) solution for nebulization wheezing/sob albuterol sulfate 90 mcg/actuation 90 mcg inhalation Q4H PRN PRN 12/20/22 Unknown History aerosol inhaler wheezing/sob bupropion HCl 300 mg 24 hr tablet, 300 mg PO DAILY 12/20/22 02/08/25 History extended release ipratropium bromide 0.02 % 2.5 ml inhalation Q6H PRN PRN 12/20/22 02/08/25 History solution for inhalation wheezing/sob nitroglycerin 0.4 mg sublingual 0.4 mg sublingual Q5M PRN Chest 12/20/22 Unknown History tablet Pain ondansetron 4 mg disintegrating 4 mg PO Q8H PRN PRN Nausea #10 tabs 12/20/22 Unknown Rx tablet potassium chloride 10 mEq 10 meq PO BID 12/20/22 02/08/25 History capsule,extended release trazodone 100 mg tablet 300 mg PO DAILY 12/20/22 02/07/25 History cholecalciferol (vitamin D3) 25 25 mcg PO DAILY 02/08/25 02/08/25 History mcg (1,000 unit) tablet (Vitamin D3) duloxetine 60 mg capsule,delayed 60 mg PO DAILY neuropathic pain 02/08/25 02/07/25 History release famotidine 20 mg tablet 40 mg PO DAILY acid reflux 02/08/25 02/08/25 History fluticasone fur. 200 mcg-umeclid 1 ea inhalation DAILY 02/08/25 Unknown History 62.5 mcg-vilant 25 mcg inhalat.powder (Trelegy Ellipta) furosemide 40 mg tablet 40 mg PO DAILY 02/08/25 02/08/25 History lorazepam 1 mg tablet 1 mg PO Q4H PRN 02/08/25 02/08/25 History melatonin 5 mg tablet 5 mg PO DAILY insomnia 02/08/25 02/07/25 History mirabegron 50 mg tablet,extended 50 mg PO DAILY 02/08/25 02/08/25 History release 24 hr (Myrbetriq) montelukast 10 mg tablet 10 mg PO DAILY allergies 02/08/25 02/08/25 History oxycodone 10 mg tablet 10 mg PO Q4H PRN PRN pain 02/08/25 02/08/25 History prednisone 10 mg tablet 10 mg PO DAILY dyspnea 02/08/25 02/08/25 History sennosides 8.6 mg-docusate sodium 2 tab-cap PO DAILY PRN constipation 02/08/25 02/08/25 History 50 mg tablet (2-in-1 Laxative) spironolactone 25 mg tablet 25 mg PO DAILY blood pressure 02/08/25 02/08/25 History Allergy/AdvReac Type Severity Reaction Status Date / Time diphenhydramine HCl (From Allergy Anaphylaxis Verified 02/06/25 19:27 Benadryl) Penicillins Allergy Rash Verified 02/06/25 19:27 Surgical History (Updated 02/08/25 @ 23:03 by Mirta Akins) Hx of cholecystectomy S/P cholecystectomy Social History Smoking Status: Current every day smoker tobacco type: cigarettes ROS <KIANA Ortega - Last Filed: 02/08/25 21:28> ROS ED ROS Narrative Constitutional: Negative for fever, chills, malaise. CVS: Positive for chest pain. No palpitations. Respiratory: Positive for shortness of breath, cough. GI: Negative for abdominal pain, nausea, vomiting. EXAM <KIANA Ortega - Last Filed: 02/08/25 21:28> Physical Exam Narrative Exam Narrative: CONST: Patient sitting in no acute distress. EYES: Normal inspection. NECK: Normal inspection. RESP: Mild respiratory distress on nasal cannula, expiratory wheezing throughout all lung gonsales. CVS: Regular rate and rhythm, no murmur, no gallop. ABD: Soft and nontender, no guarding or rebound. SKIN: Color normal, no rash, warm, dry, intact. EXTREMITIES: Normal appearance, no pedal edema. NEURO: Alert and answering questions appropriately. PSYCH: Normal affect. Const Vital Signs: 02/08/25 16:28 02/08/25 16:28 02/08/25 16:44 Temperature 98.6 F Temperature Source Oral Pulse Rate 88 Respiratory Rate 17 Respiratory Effort Short of Breath Respiratory Depth Normal Respiratory Pattern Normal Blood Pressure 134/85 H Blood Pressure Mean 101 Pulse Ox 93 Oxygen Delivery Method Nasal Cannula Nasal Cannula Nasal Cannula Oxygen Flow Rate (L/min) 6 6 Fraction of Inspired Oxygen (FIO2) 02/08/25 17:10 02/08/25 17:28 02/08/25 17:37 Temperature Temperature Source Pulse Rate 85 88 91 Respiratory Rate 16 18 17 Respiratory Effort Respiratory Depth Respiratory Pattern Normal Normal Blood Pressure 129/80 H Blood Pressure Mean 96 Pulse Ox 93 96 Oxygen Delivery Method Bi-pap Oxygen Flow Rate (L/min) Fraction of Inspired Oxygen (FIO2) 55 02/08/25 18:00 02/08/25 19:00 02/08/25 20:00 Temperature Temperature Source Pulse Rate 100 98 99 Respiratory Rate 20 H 20 H 25 H Respiratory Effort Respiratory Depth Respiratory Pattern Blood Pressure 122/94 H 113/93 H 108/60 Blood Pressure Mean 103 99 76 Pulse Ox 96 93 94 Oxygen Delivery Method Bi-pap Nasal Cannula Nasal Cannula Oxygen Flow Rate (L/min) 6 6 Fraction of Inspired Oxygen (FIO2) 02/08/25 21:00 02/08/25 21:29 02/08/25 21:32 Temperature 98.6 F 98.6 F Temperature Source Oral Pulse Rate 97 102 H 102 H Respiratory Rate 21 H 21 H 21 H Respiratory Effort Respiratory Depth Respiratory Pattern Blood Pressure 142/93 H 142/93 H Blood Pressure Mean 109 109 Pulse Ox 95 94 94 Oxygen Delivery Method Nasal Cannula Oxygen Flow Rate (L/min) 6 Fraction of Inspired Oxygen (FIO2) <Dr. Romain Chambers DO - Last Filed: 02/09/25 02:18> Physical Exam Const Vital Signs: 02/08/25 16:28 02/08/25 16:28 02/08/25 16:44 Temperature 98.6 F Temperature Source Oral Pulse Rate 88 Respiratory Rate 17 Respiratory Effort Short of Breath Respiratory Depth Normal Respiratory Pattern Normal Blood Pressure 134/85 H Blood Pressure Mean 101 Pulse Ox 93 Oxygen Delivery Method Nasal Cannula Nasal Cannula Nasal Cannula Oxygen Flow Rate (L/min) 6 6 Fraction of Inspired Oxygen (FIO2) 02/08/25 17:10 02/08/25 17:28 02/08/25 17:37 Temperature Temperature Source Pulse Rate 85 88 91 Respiratory Rate 16 18 17 Respiratory Effort Respiratory Depth Respiratory Pattern Normal Normal Blood Pressure 129/80 H Blood Pressure Mean 96 Pulse Ox 93 96 Oxygen Delivery Method Bi-pap Oxygen Flow Rate (L/min) Fraction of Inspired Oxygen (FIO2) 55 02/08/25 18:00 02/08/25 19:00 02/08/25 20:00 Temperature Temperature Source Pulse Rate 100 98 99 Respiratory Rate 20 H 20 H 25 H Respiratory Effort Respiratory Depth Respiratory Pattern Blood Pressure 122/94 H 113/93 H 108/60 Blood Pressure Mean 103 99 76 Pulse Ox 96 93 94 Oxygen Delivery Method Bi-pap Nasal Cannula Nasal Cannula Oxygen Flow Rate (L/min) 6 6 Fraction of Inspired Oxygen (FIO2) 02/08/25 21:00 02/08/25 21:29 02/08/25 21:32 Temperature 98.6 F 98.6 F Temperature Source Oral Pulse Rate 97 102 H 102 H Respiratory Rate 21 H 21 H 21 H Respiratory Effort Respiratory Depth Respiratory Pattern Blood Pressure 142/93 H 142/93 H Blood Pressure Mean 109 109 Pulse Ox 95 94 94 Oxygen Delivery Method Nasal Cannula Oxygen Flow Rate (L/min) 6 Fraction of Inspired Oxygen (FIO2) MDM <Mirta Cyr PA - Last Filed: 02/08/25 21:28> MDM MDM Narrative Medical decision making narrative: History gathered from: Patient and her daughter Consults: Hospitalist Differential includes but not limited to pneumonia, COPD exacerbation, ACS, PE 59-year-old female with PMH of COPD and tobacco use typically on 5 L at night presents with 5-day history of dyspnea and wheezing. She is wearing 5 L continuously at home. Here she is awake and alert. BP 130/85, HR 88, 93% on room air, RR 17, afebrile. She has prolonged expiratory wheezing throughout and was ordered aerosols and IV Solu-Medrol. ABG from her visit 2 days ago showed pCO2 at 83.6. Today's ABG shows CO2 of 78.6 and after discussion and explanation she agreed to BiPAP. Labs show normal white count of 8.9. Baseline hemoglobin at 16.7. Glucose is 186, CO2 elevated at 35 similar to previous, otherwise unremarkable chemistry. EKG is nonischemic and troponin is 15. The 1 view chest x-ray is a very poor film and there is chronic severe elevation of the left hemidiaphragm which also obscures findings. There are bibasilar opacities which could be edema or infection so I ordered a follow-up CTA and she was given IV Rocephin and Zithromax pending the read. CTA shows bilateral pneumonia, no PE. I discussed the case with the hospitalist for admission. Lab Data Attestation: I reviewed the patient's lab results. Labs: Laboratory Results - last 24 hr 02/08/25 02/08/25 16:35 20:35 WBC 8.9 RBC 5.36 Hgb 16.7 H Hct 53.4 H MCV 99.6 H MCH 31.2 MCHC 31.3 L RDW Std Deviation 56.8 H RDW Coeff of Clemente 15.2 H Plt Count 261 MPV 9.3 Immature Gran % (Auto) 0.600 Neut % (Auto) 78.3 H Lymph % (Auto) 15.5 L Ness % (Auto) 4.8 Eos % (Auto) 0.2 Baso % (Auto) 0.6 Absolute Neuts (auto) 7.0 Absolute Lymphs (auto) 1.38 Nucleated RBC % 0 Sodium 141 Potassium 4.7 Chloride 96 L Carbon Dioxide 35.3 H Anion Gap 9 BUN 20 H Creatinine 1.04 Estim Creat Clear Calc 63.92 Est GFR (MDRD) Non-Af 61 BUN/Creatinine Ratio 19.3 Glucose 186 H Calcium 9.1 Magnesium 1.7 Troponin T High Sens 15 H Troponin T Hi Sens 2 Hr 14 TSH 0.558 ABG Data ABG results: ABG 02/08/25 02/08/25 16:57 17:57 Specimen Type ART BASILIA Sample Site L Radial Not entered pH 7.31 L Bicarbonate Actual 39.2 H Total CO2 42 Base Excess 13 H O2 Saturation 87 L O2 % 6.0 ABG pCO2 78.6 H* ABG pO2 61 L Brian Test Positive VBG pH 7.33 VBG pO2 74 H VBG HCO3 39 H VBG Total CO2 41 H VBG O2 Sat (Calc) 93 H VBG Base Excess 13 H POC Mix VBG pCO2 Pt Tmp 72.6 H* O2 Delivery Device Cannula Not entered Vent Mode Not entered Crit Call To/Read Back Yes Yes Blood Gas Notified Whom awa Martinez Blood Gas Notified Time 16:58:32 17:59:00 Radiography Diagnostic Testing: Clinical Impression(s) from Imaging Studies Chest X-Ray 02/08/25 17:50 IMPRESSION: As above. Reading Location: [id number] Chest CTA 02/08/25 18:59 IMPRESSION: Bilateral consolidating airspace disease/pneumonia. No PE. Other findings as above. Reading Location: [facility] ED attending interpretation of 1 view chest x-ray shows very poor film, significantly elevated left hemidiaphragm, hard to tell if there is an acute infiltrate. EKG Initial EKG: Attestation: I personally reviewed and interpreted this EKG as follows: Comments: Sinus rhythm with marked sinus arrhythmia 82 bpm No acute ischemic changes <Dr. Romain Chambers, DO - Last Filed: 02/09/25 02:18> MDM MDM Narrative Medical decision making narrative: History gathered from: Patient and her daughter Consults: Hospitalist Differential includes but not limited to pneumonia, COPD exacerbation, ACS, PE 59-year-old female with PMH of COPD and tobacco use typically on 5 L at night presents with 5-day history of dyspnea and wheezing. She is wearing 5 L continuously at home. Here she is awake and alert. BP 130/85, HR 88, 93% on room air, RR 17, afebrile. She has prolonged expiratory wheezing throughout and was ordered aerosols and IV Solu-Medrol. ABG from her visit 2 days ago showed pCO2 at 83.6. Today's ABG shows CO2 of 78.6 and after discussion and explanation she agreed to BiPAP. Labs show normal white count of 8.9. Baseline hemoglobin at 16.7. Glucose is 186, CO2 elevated at 35 similar to previous, otherwise unremarkable chemistry. EKG is nonischemic and troponin is 15. The 1 view chest x-ray is a very poor film and there is chronic severe elevation of the left hemidiaphragm which also obscures findings. There are bibasilar opacities which could be edema or infection so I ordered a follow-up CTA and she was given IV Rocephin and Zithromax pending the read. CTA shows bilateral pneumonia, no PE. I discussed the case with the hospitalist for admission. Supervisory Physician Note Patient was seen and examined with the Advanced Practice Provider. Nursing notes and vital signs have been reviewed. Pertinent old records have been reviewed. I agree with the essential elements of the HANK's history, physical exam, assessment, and plan. The differential diagnosis and management options were discussed with the HANK. I participated in determining and agree with the management, procedures, final impression and disposition as documented. See changes noted by me. Please see addendum or separate note for any additional details. 59-year-old female with history of COPD, tobacco abuse presents for evaluation of worsening shortness of breath and wheezing. Was recently seen in our emergency department but left AMA. Symptoms have not improved. Gen: A&O x4 Head: Normocephalic, atraumatic Eyes: No sclera icterus, conjunctiva clear ENT: Moist mucous membranes Neck: Trachea midline, No JVD CV: RRR, no murmurs, no peripheral edema Resp: Lungs diminished in the bilateral bases with expiratory wheezing GI: Abd soft, non-distended, non-tender, no r/r/g Musc: Full ROM, no deformity Skin: Warm, dry Neuro: Alert, oriented, grossly intact, sensation intact Psych: Intermittently cooperative, intermittently agitated ABG shows respiratory acidosis with a pH of 7.31 and a PCO2 of 78.6. Patient ordered BiPAP and consented. CBC without leukocytosis. Patient has baseline hemoconcentration. BMP shows metabolic compensation for her hypercapnia. No HAMILTON. Troponin 15 and 14. Chest x-ray shows likely pneumonia in which Rocephin and azithromycin was ordered. Radiologist recommended CT therefore this was ordered. I spoke with the patient about the recommendation for admission. She became unhappy and states that she wanted to leave AGAINST MEDICAL ADVICE. She had me take off her BiPAP. After a long discussion with the patient, her daughter who is POA, and neighbor patient agreed to wear BiPAP and admission. Repeat VBG on BiPAP shows improvement. CTA negative for PE but positive for bilateral pneumonia. Patient will warrant admission. Patient was admitted to the hospitalist. ECG was interpreted by me and contributed to patient care in the ED. It showed sinus arrhythmia with a heart rate of 52. No acute ischemic changes. Plain images were interpreted by the radiologist and me, and contributed to patient care in the ED. They showed elevation of left hemidiaphragm. Bibasilar opacities concerning for pneumonia. 40 minutes of critical care time utilized in managing the patient. This is due to high probability of and deterioration of the patient based on the patient's condition and excludes any separately billable procedures. Impression: 1. Hypercapnic and hypoxic respiratory failure requiring BiPAP 2. Bilateral pneumonia 3. Chronic hemoconcentration Lab Data Labs: Laboratory Results - last 24 hr 02/08/25 02/08/25 16:35 20:35 WBC 8.9 RBC 5.36 Hgb 16.7 H Hct 53.4 H MCV 99.6 H MCH 31.2 MCHC 31.3 L RDW Std Deviation 56.8 H RDW Coeff of Clemente 15.2 H Plt Count 261 MPV 9.3 Immature Gran % (Auto) 0.600 Neut % (Auto) 78.3 H Lymph % (Auto) 15.5 L Ness % (Auto) 4.8 Eos % (Auto) 0.2 Baso % (Auto) 0.6 Absolute Neuts (auto) 7.0 Absolute Lymphs (auto) 1.38 Nucleated RBC % 0 Sodium 141 Potassium 4.7 Chloride 96 L Carbon Dioxide 35.3 H Anion Gap 9 BUN 20 H Creatinine 1.04 Estim Creat Clear Calc 63.92 Est GFR (MDRD) Non-Af 61 BUN/Creatinine Ratio 19.3 Glucose 186 H Calcium 9.1 Magnesium 1.7 Troponin T High Sens 15 H Troponin T Hi Sens 2 Hr 14 TSH 0.558 ABG Data ABG results: ABG 02/08/25 02/08/25 16:57 17:57 Specimen Type ART BASILIA Sample Site L Radial Not entered pH 7.31 L Bicarbonate Actual 39.2 H Total CO2 42 Base Excess 13 H O2 Saturation 87 L O2 % 6.0 ABG pCO2 78.6 H* ABG pO2 61 L Brian Test Positive VBG pH 7.33 VBG pO2 74 H VBG HCO3 39 H VBG Total CO2 41 H VBG O2 Sat (Calc) 93 H VBG Base Excess 13 H POC Mix VBG pCO2 Pt Tmp 72.6 H* O2 Delivery Device Cannula Not entered Vent Mode Not entered Crit Call To/Read Back Yes Yes Blood Gas Notified Whom awa Martinez Blood Gas Notified Time 16:58:32 17:59:00 Radiography Diagnostic Testing: Clinical Impression(s) from Imaging Studies Chest X-Ray 02/08/25 17:50 IMPRESSION: As above. Reading Location: [id number] Chest CTA 02/08/25 18:59 IMPRESSION: Bilateral consolidating airspace disease/pneumonia. No PE. Other findings as above. Reading [facility] Discharge Plan Dx/Rx/DC Orders Clinical Impression: Bilateral pneumonia, Acute on chronic respiratory failure with hypoxia and hypercapnia, COPD with exacerbation Disposition Disposition: Acute Care Hospital [facility] Discharge Date/Time: 02/08/25 22:51
[2025-02-08 17:00] LABS: Allen Test Positive; Base Excess 13 mmol/L (-2 to +2); Bicarbonate 39.2 mmol/L (22-26); Blood Gas Specimen Type ART; Mode Not entered; O2 Delivery Device Cannula; PO2 61 mmHG (75-100); SITE L Radial; SO2 87 % (95-99); Time Given 16:58:32; Total Carbon Dioxide 42 mmol/L; pCO2 78.6 mmHg (35-45); pH 7.31 (7.35-7.45)
[2025-02-08 17:03] LABS: Absolute Lymphocyte Count 1.38 X10^3/uL (0.83-4.51); Basophil# 0.05 X10^3/uL; Basophil% 0.6 % (0-1); Eosinophil# 0.02 X10^3/uL; Eosinophils% 0.2 % (0-5); Hematocrit 53.4 % (37-47); Hemoglobin 16.7 g/dL (12.0-15.0); Lymphocyte # 1.38 X10^3/ul (0.83-4.51); Lymphocyte % 15.5 % (19-41); Mean Corp Hgb Conc 31.3 g/dL (32-36); Mean Corpuscular Hgb 31.2 pg (27.0-32.0); Mean Corpuscular Volume 99.6 fL (81-99); Mean Platelet Vol. 9.3 fl (6.2-12.0); Monocyte# 0.43 X10^3/uL; Monocyte% 4.8 % (0-10); NRBC Flagged by Analyzer 0 % (0-5); Neutrophil # 6.97 X10^3/uL (2.7-7.7); Neutrophil % 78.3 % (47-70); Platelet Count 261 K/mm3 (150-450); RBC Distribution Width CV 15.2 % (11.6-14.6); RBC Distribution Width SD 56.8 fl (35.1-43.9); Red Blood Count 5.36 M/mm3 (4.2-5.4); White Blood Count 8.9 K/mm3 (4.4-11.0)
[2025-02-08 17:23] LABS: Anion Gap 9 (5-15); BUN 20 mg/dL (4-19); BUN/Creat Ratio 19.3 RATIO (10-20); Calcium,Total 9.1 mg/dL (7.6-11.0); Carbon Dioxide 35.3 mmol/L (21.0-32.0); Chloride 96 mmol/L (98-108); Creatinine, Serum 1.04 mg/dL (0.70-1.20); EST Glomerular Filtration Rate 61 (>60); Estimated Creatinine Clearance 63.92 ml/min (50-250); Glucose 186 mg/dL (70-99); Potassium 4.7 mmol/L (3.3-5.1); Sodium Level 141 mmol/L (133-145); Troponin T High Sensitivity 15 ng/L (<=14)
[2025-02-08] MEDS: Ipratropium/Albuterol Sulfate 3 ML AMPUL.NEB 9 ML INHALATION (17:37)
--- NOTE | 2025-02-08 17:50 | RAD_ITS ---
PROCEDURE: CHEST 1 VIEW (PORTABLE) 02/08/2025 REASON FOR EXAM: SOB TECHNIQUE: Frontal view of the chest. COMPARISON: None. FINDINGS: Severe elevation of the left hemidiaphragm with underlying bowel gas. A hiatal hernia or diaphragmatic hernia or possible. Consider further characterization with CT. Bibasilar opacities which may represent edema or infection. The heart borders are obscured. RAD/Chest 1 View (Portable) IMPRESSION: As above. Reading Location: [place] [id number]
[2025-02-08 18:02] LABS: Blood Gas Specimen Type VEN; O2 Delivery Device Not entered; SITE Not entered; Time Given 17:59:00; VBG BASE EXCESS 13 mmol/L (-1.0-3.5); VBG Bicarbonate 39 mmol/L (22-26); VBG PO2 74 mmHg (25-40); VBG SO2 93 % (50-70); VBG TCO2 41 mmol/L (23-33); VBG pCO2 72.6 mmHg (41-51); VBG pH 7.33 (7.32-7.42)
--- NOTE | 2025-02-08 18:28 | ED.RN ---
pt gets agitated and removes bipap. pt refusing to wear bipap, monitor, and pulse ox. pt demands to go home. wants to sign out AMA. pt educated by dr billings on risks of leaving AMA. pt demands iv be removed at this time
--- NOTE | 2025-02-08 18:59 | CT_ITS ---
PROCEDURE: CTA CHEST W/WO CONTRAST 02/08/2025 REASON FOR EXAM: DYSPNEA TECHNIQUE: CTA CHEST W/WO CONTRAST Multiplanar Sagittal and Coronal images were obtained. CONTRAST: Isovue 370 VOLUME: 97 mL One or more dose reduction techniques were used (e.g., Automated exposure control, adjustment of the mA and/or kV according to patient size, use of iterative reconstruction technique). RADIATION DOSE SUMMARY: CTDlvol: 11.87 and 15.18 mGy DLP: 560.59 mGycm COMPARISON: # of known CTs in the past 12 months: None. FINDINGS: Thoracic Aorta: Normal caliber Heart: Upper limits normal size. Pulmonary Vessels: No pulmonary emboli. Hardware: None. Lymph nodes: None. Lungs and Airways: Patchy dense consolidating airspace disease with air bronchograms, anterior left upper lobe patches of compressive atelectasis with air bronchograms and airspace consolidation in the compressed lower lobe. Lower lobe compressed by chronic appearing elevation of the left hemidiaphragm. Consolidation with air bronchograms seen also in the medial segment of the right middle lobe. Pleura: Unremarkable Upper Abdomen: Chronic appearing elevation of the left hemidiaphragm. No acute process detected in the upper abdomen. Bones: no aggressive bone lesions CT/CTA Chest W/WO Contrast IMPRESSION: Bilateral consolidating airspace disease/pneumonia. No PE. Other findings as above. Reading Location[facility]
[2025-02-08] MEDS: MethylPREDNISolone 125 MG/2 ML Vial IV (19:42)
[2025-02-08] MEDS: Ceftriaxone 1 GM/50 ML BAG IV (20:45)
[2025-02-08 21:14] LABS: Troponin T High Sens 2 HR 14 ng/L (<=14)
--- NOTE | 2025-02-08 21:26 | PCM.HP.STD ---
[facility] - General General Date of Admission: 02/08/25 Date of Service: 02/08/25 Chief Complaint: SOB. [facility] Narrative FRANCIS DIAMOND, is a 59 F with a past medical history of essential hypertension; on spironolactone and furosemide, obesity; with BMI of 38.9 this admission, history of tobacco abuse; with subsequent COPD, chronic respiratory failure on 5 LNC nocturnal (but recently has been wearing continuously), depression with anxiety; on duloxetine, bupropion, trazodone q. HS and as needed lorazepam, OAB; on mirabegron, GERD; on famotidine, chronic lower extremity lymphedema plus OA; on trazodone daily plus oxycodone as needed who presents to [facility] ER complaining of shortness of breath. Ms. Diamond reports her symptoms began approximately 3 days prior to admission with a gradual-onset of dyspnea on exertion that progressed to shortness of breath at rest. She also admits to wheezing and nonproductive cough with patient having to use her nocturnal supplemental oxygen continuously due to ongoing dyspnea. She came to the ER 2 days ago and had an ABG that revealed hypercapnia but she refused chest x-ray or BiPAP in addition to being unhappy with the staff at that time so she opted to leave [place]. Unfortunately, her symptoms worsened so she decided to come back after her neighbor noted she was confused this morning with ongoing shortness of breath and wheezing. She admits to an episode of pleuritic chest pain made worse with deep breathing and cough. There was no report of fever, chills, changes in vision, discharge from eyes, abdominal pain, nausea, vomiting, diarrhea, constipation, dysuria, hematuria, headache or rash. In the ER she was noted to have a CTA of the chest w/wo contrast that revealed no evidence of PE but did reveal bilateral consolidating airspace disease consistent with Pneumonia with clinical evidence of AE COPD with a corresponding ABG that revealed pH 7.31/pCO2 78.6 mmHg/PaO2 61 mmHg/HCO3 39.2 mmol/L at 87% on 6L NC prompting patient to be started on BiPAP for Pqykt-we-Kvnbqbo Hypoxic and Hypercapnic Respiratory Failure and she was then admitted to the PCU for ongoing care for status is expected to extend beyond 2 midnights. [facility] Medical History COPD (chronic obstructive pulmonary disease) Home Medications ?Medication ?Instructions ?Recorded ?Last Taken ?Type albuterol sulfate 2.5 mg/3 mL 2.5 mg inhalation Q4H PRN PRN 12/20/22 02/08/25 History (0.083 %) solution for nebulization wheezing/sob albuterol sulfate 90 mcg/actuation 90 mcg inhalation Q4H PRN PRN 12/20/22 Unknown History aerosol inhaler wheezing/sob bupropion HCl 300 mg 24 hr tablet, 300 mg PO DAILY 12/20/22 02/08/25 History extended release ipratropium bromide 0.02 % 2.5 ml inhalation Q6H PRN PRN 12/20/22 02/08/25 History solution for inhalation wheezing/sob nitroglycerin 0.4 mg sublingual 0.4 mg sublingual Q5M PRN Chest 12/20/22 Unknown History tablet Pain ondansetron 4 mg disintegrating 4 mg PO Q8H PRN PRN Nausea #10 tabs 12/20/22 Unknown Rx tablet potassium chloride 10 mEq 10 meq PO BID 12/20/22 02/08/25 History capsule,extended release trazodone 100 mg tablet 300 mg PO DAILY 12/20/22 02/07/25 History cholecalciferol (vitamin D3) 25 25 mcg PO DAILY 02/08/25 02/08/25 History mcg (1,000 unit) tablet (Vitamin D3) duloxetine 60 mg capsule,delayed 60 mg PO DAILY neuropathic pain 02/08/25 02/07/25 History release famotidine 20 mg tablet 40 mg PO DAILY acid reflux 02/08/25 02/08/25 History fluticasone fur. 200 mcg-umeclid 1 ea inhalation DAILY 02/08/25 Unknown History 62.5 mcg-vilant 25 mcg inhalat.powder (Trelegy Ellipta) furosemide 40 mg tablet 40 mg PO DAILY 02/08/25 02/08/25 History lorazepam 1 mg tablet 1 mg PO Q4H PRN 02/08/25 02/08/25 History melatonin 5 mg tablet 5 mg PO DAILY insomnia 02/08/25 02/07/25 History mirabegron 50 mg tablet,extended 50 mg PO DAILY 02/08/25 02/08/25 History release 24 hr (Myrbetriq) montelukast 10 mg tablet 10 mg PO DAILY allergies 02/08/25 02/08/25 History oxycodone 10 mg tablet 10 mg PO Q4H PRN PRN pain 02/08/25 02/08/25 History prednisone 10 mg tablet 10 mg PO DAILY dyspnea 02/08/25 02/08/25 History sennosides 8.6 mg-docusate sodium 2 tab-cap PO DAILY PRN constipation 02/08/25 02/08/25 History 50 mg tablet (2-in-1 Laxative) spironolactone 25 mg tablet 25 mg PO DAILY blood pressure 02/08/25 02/08/25 History Allergy/AdvReac Type Severity Reaction Status Date / Time diphenhydramine HCl (From Allergy Anaphylaxis Verified 02/06/25 19:27 Benadryl) Penicillins Allergy Rash Verified 02/06/25 19:27 Social History Smoking Status: Current every day smoker tobacco type: cigarettes ROS ROS Narrative Review of Systems: Constitutional: Patient denies fever or chills. Eyes: Patient denies changes in vision or discharge from eyes. ENT: Patient denies runny nose, sore throat or ear pain. Resp: Patient admits to dyspnea on exertion the progressive SOB at rest with intermittent wheezing and nonproductive cough as per HPI. GI: Patient denies abdominal pain, nausea, vomiting, diarrhea or constipation. : Patient denies dysuria or hematuria. MSK: Patient denies arthralgias or myalgias. Skin: Patient denies rash, abscess, wounds or jaundice. Psych: Patient denies symptoms of uncontrolled pressure or anxiety. Neuro: Patient denies headache, paresthesias or focal neurologic deficits. Allergy: Patient denies lip swelling, tongue swelling or urticaria. Hematology: Patient denies easy bleeding or easy bruisability. Endocrinology: Patient denies polyuria, polydipsia, polyphagia or heat/cold intolerance. 14 point ROS otherwise negative except for positives noted above in HPI. Vital Signs Vital Signs Vital Signs: 02/08/25 16:28 02/08/25 16:28 02/08/25 16:44 Temperature 98.6 F Temperature Source Oral Pulse Rate 88 Respiratory Rate 17 Respiratory Effort Short of Breath Respiratory Depth Normal Respiratory Pattern Normal Blood Pressure 134/85 H Blood Pressure Mean 101 Pulse Ox 93 Oxygen Delivery Method Nasal Cannula Nasal Cannula Nasal Cannula Oxygen Flow Rate (L/min) 6 6 Fraction of Inspired Oxygen (FIO2) 02/08/25 17:10 02/08/25 17:28 02/08/25 17:37 Temperature Temperature Source Pulse Rate 85 88 91 Respiratory Rate 16 18 17 Respiratory Effort Respiratory Depth Respiratory Pattern Normal Normal Blood Pressure 129/80 H Blood Pressure Mean 96 Pulse Ox 93 96 Oxygen Delivery Method Bi-pap Oxygen Flow Rate (L/min) Fraction of Inspired Oxygen (FIO2) 55 02/08/25 18:00 02/08/25 19:00 02/08/25 20:00 Temperature Temperature Source Pulse Rate 100 98 99 Respiratory Rate 20 H 20 H 25 H Respiratory Effort Respiratory Depth Respiratory Pattern Blood Pressure 122/94 H 113/93 H 108/60 Blood Pressure Mean 103 99 76 Pulse Ox 96 93 94 Oxygen Delivery Method Bi-pap Nasal Cannula Nasal Cannula Oxygen Flow Rate (L/min) 6 6 Fraction of Inspired Oxygen (FIO2) 02/08/25 21:00 Temperature Temperature Source Pulse Rate 97 Respiratory Rate 21 H Respiratory Effort Respiratory Depth Respiratory Pattern Blood Pressure Blood Pressure Mean Pulse Ox 95 Oxygen Delivery Method Oxygen Flow Rate (L/min) Fraction of Inspired Oxygen (FIO2) Weight Weight: 219 lb 9.286 oz Body Mass Index (BMI) 38.9 Physical Exam Const alert and oriented x3 Constitutional Narrative: Mild distress noted on BiPAP. General Appearance: cooperative HEENT normocephalic, head/scalp atraumatic, hearing grossly normal bilaterally and moist oral mucous membranes Eyes PERRL and EOMs intact bilaterally Neck no lymphadenopathy and supple Resp Resp Narrative: Diminished breath sounds throughout with wheezing and all lung gonsales. Auscultation: wheezes Cardio regular rate and regular rhythm GI normal to inspection, nondistended, normoactive bowel sounds, soft to palpation, non-tender and non-distended GI Narrative: Obese. Extremity normal to inspection, full ROM and no clubbing, cyanosis or edema Skin Skin Narrative: Patient has no evidence of rash, abscess, wounds or jaundice. Neuro oriented x3, CN's II-XII intact bilaterally, moves all extremities and no focal motor deficits Sensorium / Orientation: awake, alert, oriented to person, oriented to place and oriented to time Speech: speech normal Psych affect normal Results Medical Records Data Attestation: I reviewed the patient's medical records Lab / Micro Data Attestation: I reviewed the patient's lab results. 02/08/25 16:35 02/08/25 16:35 Labs: Laboratory Results - last 24 hr 02/08/25 16:35: WBC 8.9, RBC 5.36, Hgb 16.7 H, Hct 53.4 H, MCV 99.6 H, MCH 31.2, MCHC 31.3 L, RDW Std Deviation 56.8 H, RDW Coeff of [place] 15.2 H, Plt Count 261, MPV 9.3, Immature Gran % (Auto) 0.600, Neut % (Auto) 78.3 H, Lymph % (Auto) 15.5 L, White % (Auto) 4.8, Eos % (Auto) 0.2, Baso % (Auto) 0.6, Absolute Neuts (auto) 7.0, Absolute Lymphs (auto) 1.38, Nucleated RBC % 0, Sodium 141, Potassium 4.7, Chloride 96 L, Carbon Dioxide 35.3 H, Anion Gap 9, BUN 20 H, Creatinine 1.04, Estim Creat Clear Calc 63.92, Est GFR (MDRD) Non-Af 61, BUN/Creatinine Ratio 19.3, Glucose 186 H, Calcium 9.1, Troponin T High Sens 15 H 02/08/25 20:35: Troponin T Hi Sens 2 Hr 14 Micro: Microbiology 02/08/25 17:51 Mucosa - Nose SARS-CoV-2, Influenza & RSV (PCR) - Final ABG Data ABG results: ABG 02/08/25 02/08/25 16:57 17:57 Specimen Type ART BASILIA Sample Site L Radial Not entered pH 7.31 L Bicarbonate Actual 39.2 H Total CO2 42 Base Excess 13 H O2 Saturation 87 L O2 % 6.0 ABG pCO2 78.6 H* ABG pO2 61 L Brian Test Positive VBG pH 7.33 VBG pO2 74 H VBG HCO3 39 H VBG Total CO2 41 H VBG O2 Sat (Calc) 93 H VBG Base Excess 13 H POC Mix VBG pCO2 Pt Tmp 72.6 H* O2 Delivery Device Cannula Not entered Vent Mode Not entered Crit Call To/Read Back Yes Yes Blood Gas Notified Cassy Martinez Blood Gas Notified Time 16:58:32 17:59:00 Imaging Radiology Impression Chest X-Ray 02/08/25 17:50 IMPRESSION: As above. Reading Location: [id number] Chest CTA 02/08/25 18:59 IMPRESSION: Bilateral consolidating airspace disease/pneumonia. No PE. Other findings as above. Reading [facility] Assessment & Plan Assessment/Plan (1) Bilateral pneumonia: QUALIFIERS: Pneumonia type: due to unspecified organism Lung location: unspecified part of lung Qualified Code(s): J18.9 - Pneumonia, unspecified organism (2) COPD with exacerbation: (3) Tobacco abuse: (4) Acute on chronic respiratory failure with hypoxia and hypercapnia: (5) Obesity (BMI 30-39.9): PLAN: Plan 1. CTA of the chest w/wo contrast that revealed no evidence of PE but did reveal bilateral consolidating airspace disease consistent with Pneumonia - Admit to PCU. Continue empiric IV ceftriaxone and IV azithromycin begun in ER and await culture and sensitivity data. Check urinary antigens to Streptococcus pneumonia and Legionella. Start scheduled guaifenesin twice daily. Give acetaminophen as needed for [id number] (level 1-5/10) pain or fever. Continue oxycodone prn for severe (level 6-10/10) pain. 2. AE COPD with a corresponding ABG that revealed pH 7.31/pCO2 78.6 mmHg/PaO2 61 mmHg/HCO3 39.2 mmol/L at 87% on 6L NC complicating #1 - Continue IV methylprednisolone begun in ER plus scheduled and as needed nebulizers. Tobacco cessation will be strongly encouraged with nicotine patch after control cravings. 3. Iczbq-rp-Guwddkx Hypoxic and Hypercapnic Respiratory Failure requiring BiPAP due to #1 & #2 - Wean BiPAP as tolerated. 4. Obesity; with BMI of 38.9 this admission adding to the burden of disease outlined from #1 - #3 - Weight loss will be recommended. Check TSH. This complicates her case and may hamper recovery. 5. Recent visit to this ER 2 days ago with patient diagnosed with AE COPD with hypercapnia with patient opting to leave AMA for various nonmedical reasons adding to the medical complexity of #1 - #4 - Noted. 6. Essential hypertension; on spironolactone and furosemide - Maintain home regimen plus give prn hydralazine IV for systolic blood pressure greater than 160 mmHg. 7. Depression with anxiety; on duloxetine, bupropion, trazodone q. HS and as needed lorazepam - Current therapy to be continued. 8. OAB; on mirabegron - Maintain mirabegron as before. 9. GERD; on famotidine - Continue H2 johanny as previous. 10. History of lower extremity lymphedema - Noted with no significant edema in LE's at this time. 11. OA; on trazodone daily plus oxycodone as needed - We will follow pain regimen and scales outlined in #1. 12. DVT prophylaxis - Lovenox 40 mg sq daily plus SCD's. Total time: Approximately (but not less than) 75 minutes. Charges/Coding Visit Charges Inpatient E&M: 49662 Init Hosp L3
[2025-02-08] MEDS: Azithromycin 500 MG in 0.9% Normal Saline (250mL Bag) 250 ML 255 MG IV (21:29)
--- OUTSIDE RECORDS SUMMARY | 2025-02-08 22:09 | XMS RPT_ITS | CCD ---
Author Organization [facility] CliniSymn Care Team Providers Care Plant Machinist Name Role Phone EMMY BETANCOURT Unavailable Unavailable PETERSON MOSQUEDA Unavailable Unavaila sandra High MD, [facility] Primary Care Provider Jennifer LUIS, Mariluz Primary Care Provider Jennifer LUIS, Mariluz Primary Care Provider Heriberto Gill Referring Unavailable Heriberto Gill Attending Unavailable rBuno ZHAO, [facility] Care Unavailable Jennifer LUIS, Mariluz Primary Care Provider Mariluz High MD Primary Care Provider [phone] [facility] Primary Care Provider [facility] Unavailable FER BANSAL Referring Unavailable [facility] Unavailable Denchriss PA-C, Sona L Unavailable [phone] 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, Cheyanne Unavailable Bogheidy PA-C, Sg Unavailable Denbow PA-C, Sona L Unavailable Bogner PA-C, Sg Unavailable GANTA, MARILUZ Primary Care Unavailable BOGNER, SG Attending Unavailable GANTA, MARILUZ Primary Care Unavailable BOGNER, SG Referring Unavailable GANTA, MARILUZ Primary Care Unavailable BOGNER, SG Referring Unavailable GANTA, MARILUZ Attending Unavailable GANTA, MARILUZ Primary Care Unavailable GANTA, MARILUZ Primary Care Unavailable BOGNER, SG Referring Unavailable GANTA, MARILUZ Primary Care Unavailable FLORINA ARENAS Referring Unavailable GANTA, MARILUZ Primary Care Unavailable GANTA, MARILUZ Referring Unavailable PENNY GARNER Attending Unavailable GANTA, MARILUZ Primary Care Unavailable HARPSTER, AARON Referring Unavailable GANTA, MARILUZ Primary Care Unavailable HARPSTER, AARON Attending Unavailable HARPSTER, AARON Referring Unavailable GANTA, MARILUZ Primary Care Unavailable DANA, CHEYANNE Referring Unavailable GANTA, MARILUZ Primary Care Unavailable GANTA, MARILUZ Primary Care Unavailable GANTA, MARILUZ Referring Unavailable FLORINA ARENAS Referring Unavailable GANTA, MARILUZ Primary Care Unavailable FLORINA ARENAS Attending Unavailable FLORINA ARENAS Referring Unavailable GANTA, MARILUZ Primary Care Unavailable JAVIER TRUONG Referring Unavailable GANTA, MARILUZ Primary Care Unavailable Bruno INTERPRETER-CReji Primary Care Provider Jensen LUIS, Dr. [facility]vas Emergency Provider Allergies Allergy Classification Reported Allergen(s) Allergy Type Date of Onset Reaction(s) Facility diphenhydrAMINE (1 source) diphenhydrAMINE Drug Allergy 11-14-19 15 Shortness of Breath [facility] Work Phone: Penicillins (antibiotic) (1 source) Penicillins Drug Allergy 09-01-19 11 [facility] (20 sources) diphenhydrAMINE; Translations: [DIPHENHYDRAMINE HCL] Drug Allergy 11-14-19 15 Shortness of Breath [facility] Work Phone: (16 sources) Penicillins; Translations: [PENICILLINS] Drug Allergy 09-01-19 11 [facility] (20 sources) environmental [Other] Propensity to adverse reactions 12-31-19 11 Shortness of Breath [facility] Work Phone: (20 sources) Penicillins Drug Allergy 09-01-19 11 [facility] (2 sources) Penicillins Allergy to substance 12-21-19 23 [facility] (1 source) diphenhydrAMINE Drug Allergy 12-21-19 23 [facility] (1 source) Penicillins Drug allergy (disorder) 12-21-19 23 [facility] (3 sources) Penicillins Propensity to adverse reactions 06-16-20 24 [facility] (4 sources) Penicillins Drug Allergy 09-01-19 11 [facility] Medications Current Medications Medication Drug Class(es) Dates Sig (Normalized) Sig (Original) acetaminophen 325 mg / oxyCODONE hydrochloride 5 mg oral tablet (2 sources) Opioid Agonist Start: 12-20-2022 take 1 tablet by mouth every eight hours as needed for pain Oxycodone-Acetami nophen (Percocet) 5-325 mg tablet Active 1 {tbl} PO Q8H as needed for pain 10 3 December 20, 2022 albuterol 0.83 mg/ml inhalation solution (20 sources) beta2-Adrenergic Agonist Start: 02-14-2024 take 2 puff(s) by inhalation every four hours as needed for wheezing albuterol HFA (VENTOLIN HFA) 90 mcg/actuation inhaler Inhale 2 Puffs as instructed every 4 hours as needed for wheezing/shortnes s of breath. 54 g 3 02/14/2024 Active Start: 12-20-2022 take 2.5 mg by inhal ation every four hours as needed for wheezing Albuterol Sulfate 2.5 mg /3 mL (0.083 %) solution for nebulization Active 2.5 mg INHALATION EVERY 4 HOURS NEEDED as needed for wheezing/sob December 20, 2022 12:00am Start: 12-20-2022 Albuterol Sulf ate 90 mcg/actuation HFA aerosol inhaler Active 90 ug INHALATION EVERY 4 HOURS NEEDED as needed for wheezing/sob December 20, 2022 12:00am Start: 03-25-2021 End: 02-11-2024 take 2 puff(s) by inhalation every four hours as needed for wheezing albuterol HFA (VENTOLIN HFA) 90 mcg/actuation inhaler Indications: COPD with chronic bronchitis (HCC) Inhale 2 Puffs as instructed every 4 hours as needed for wheezing/shortness of breath. 54 g 3 02/17/2022 12/18/2022 Discontinued Start: 01-17-2021 End: 10-23-2024 albuterol (PROVENTIL) 2.5 mg /3 mL (0.083 %) nebulizer solution Indications: COPD with exacerbation (HCC) Use 3 mL via nebulizer every 4 hours as needed for wheezing/shortness of breath. J44.9 3 mL 5 10/23/2024 Active Comment on above: Use 3 mL via nebuliz er every 4 hours as needed for wheezing/shortness of breath. J44.9 Inhale 2 Puffs as in structed every 4 hours as needed for wheezing/shortness of breath. benzonatate 100 mg oral capsule (20 sources) Non-narcotic Antitussive Start: 01-05-20 End: 03-22-20 take 1 capsule by mouth every eight hours as needed for cough and cough benzonatate (TESSALON PERLE) 100 mg capsule Indications: Cough, unspecified type take 1 capsule by mouth three times daily as needed for cough 90 capsule 2 03/22/2024 Active Budesonide-Formoter ol (20 sources) Corticosteroid, beta2-Adrenergic Agonist Start: 12-21-19 Budesonide-Formote rol (Symbicort) 160-4.5 mcg/actuation HFA aerosol inhaler Active 2 NMA INHALATION TWICE A DAY December 20, 2022 12:00am Start: 12-20-2022 Budesonide-For moterol (Symbicort) 160-4.5 mcg/actuation HFA aerosol inhaler Active 2 INH INHALATION TWICE A DAY December 20, 2022 12:00am Start: 10-01-2022 End: 11-09-2023 take 2 puff(s) by inhalation twice daily budesonide-formoterol (SYMBICORT) 160-4.5 mcg/actuation inhaler Indications: COPD with chronic bronchitis (HCC) Inhale 2 Puffs as instructed twice daily. 1 Each 10/01/2022 11/09/2023 Discontinued Start: 10-01-2022 End: 11-09-2023 take 2 puff(s) by inhalation twice daily budesonide-formoterol (SYMBICORT) 160-4.5 mcg/actuation inhaler Indications: COPD with chronic bronchitis (HCC) Inhale 2 Puffs as instructed twice daily. 1 Each 0 10/01/2022 11/09/2023 Discontinued Start: 10-01-2022 take 2 puff(s) by in halation twice daily budesonide-formoterol (SYMBICORT) 160-4.5 mcg/actuation inhaler Indications: COPD with chronic bronchitis Inhale 2 Puffs as instructed twice daily. 1 Each 0 10/01/2022 Active Start: 10-01-2022 take 2 puff(s) by in halation twice daily budesonide-formoterol (SYMBICORT) 160-4.5 mcg/actuation inhaler Indications: COPD with chronic bronchitis (HCC) Inhale 2 Puffs as instructed twice daily. 1 Each 0 10/01/2022 Active Start: 12-18-2020 End: 10-01-2022 take 2 puff(s) by inhalation twice daily budesonide-formoterol (SYMBICORT) 160-4.5 mcg/actuation inhaler Indications: COPD with chronic bronchitis (HCC) Inhale 2 Puffs as instructed twice daily. 3 Inhaler 3 12/18/2020 10/01/2022 Discontinued Start: 12-18-2020 take 2 puff(s) by in halation twice daily budesonide-formoterol (SYMBICORT) 160-4.5 mcg/actuation inhaler Indications: COPD with chronic bronchitis (HCC) Inhale 2 Puffs as instructed twice daily. 3 Inhaler 3 12/18/2020 Active Comment on above: Inhale 2 Puffs as in structed twice daily. 24 hr buPROPion hydrochloride 300 mg extended release oral tablet (20 sources) Aminoketone Start: End: take 1 tablet by mouth once daily buPROPion XL (WELLBUTRIN XL) 300 mg 24 hr tablet Take 1 tablet by mouth once daily. 90 tablet 3 08/25/2024 Active Start: 12-18-2020 End: 06-17-2021 take 1 tablet by mouth once daily buPROPion XL (WELLBUTRIN XL) 300 mg 24 hr tablet Take 1 tablet by mouth once daily. 90 tablet 1 12/18/2020 06/17/2021 Discontinued Comment on above: Take 1 tablet by sven th once daily. cholecalciferol 0.025 mg oral tablet (20 sources) Vitamin D Start: 10-11-19 take 1 tablet by mouth once daily cholecalciferol (VITAMIN D3) 1,000 unit tab tablet Take 1 tablet by mouth once daily. 90 tablet 3 10/11/2024 Active Start: 10-05-2023 End: 10-09-2024 take 1 tablet by mouth once daily cholecalciferol (VITAMIN D3) 1,000 unit tab tablet Take 1 tablet by mouth once daily. 90 tablet 3 11/24/2023 10/09/2024 Discontinued Comment on above: Take 1 tablet by sven th once daily. ciprofloxacin 500 mg oral tablet (2 sources) Quinolone Antimicrobial Start: 12-21-19 take 1 tablet by mouth twice daily Ciprofloxacin Hcl (Cipro) 500 mg tablet Active 500 mg PO TWICE A DAY December 20, 2022 12:00am COMPOUNDED PRESCRIPTION (20 sources) Start: 10-27-19 15 COMPOUNDED PRESCRIPTION Indications: Chronic airway obstruction, not elsewhere classified Oxygen 2L at night and as needed 11 10/26/2014 Active Start: 07-15-2009 COMPOUNDED PRE SCRIPTION Nebulizer machine DX: 496/143.90 1 0 07/15/2009 Active Comment on above: Nebulizer machine DX : 496/143.90 Oxygen 2L at night a nd as needed cyclobenzaprine hydrochloride 10 mg oral tablet (20 sources) Muscle Relaxant Start: take 1 tablet by mouth at bedtime as needed for pain cyclobenzaprine (FLEXERIL) 10 mg tablet Indications: Chronic midline low back pain without sciatica Take 1 tablet by mouth at bedtime as needed for muscle spasm or pain. 30 tablet 09/17/2023 Active Comment on above: Take 1 tablet by sven th at bedtime as needed for muscle spasm or pain. doxycycline monohydrate 100 mg oral capsule (1 source) Tetracycline-class Drug Start: 025 take 1 capsule by mouth twice daily Doxycycline Monohydrate 100 mg capsule Active 100 mg PO TWICE A DAY February 06, 2025 12:00am DULoxetine 60 mg delayed release oral capsule (20 sources) Serotonin and Norepinephrine Reuptake Inhibitor Start: 024 take 1 capsule by mouth once daily DULoxetine (CYMBALTA) 60 mg capsule Take 1 capsule by mouth once daily. 90 capsule 1 08/04/2024 Active Start: 07-11-2024 End: 08-08-2024 take 2 capsules by mouth once daily DULoxetine (CYMBALTA) 30 mg capsule Take 2 capsules by mouth once daily. 30 capsule 2 07/11/2024 08/08/2024 Discontinued Start: 10-19-2023 End: 07-11-2024 take 1 capsule by mouth once daily DULoxetine (CYMBALTA) 30 mg capsule Take 1 capsule by mouth once daily. 30 capsule 2 07/07/2024 07/11/2024 Discontinued Comment on above: Take 1 capsule by mo [facility] once daily. fluticasone propionate 0.05 mg/actuat metered dose nasal spray (20 sources) Corticosteroid Start: 12-20-2022 Fluticasone Propionate 50 mcg/actuation spray,suspension Active 2 NMA INTRANASAL DAILY December 20, 2022 12:00am Start: 12-20-2022 Fluticasone Pr opionate Active 2 SPRAY INTRANASAL DAILY December 20, 2022 12:00am Start: 09-20-2020 End: 01-05-2024 take 2 spray(s) nasal route once daily, then take 2 spray(s) nasal route once daily fluticasone (FLONASE) 50 mcg/actuation nasal spray Indications: Rhinitis Use 2 Sprays in each nostril once daily. ADMINISTER 2 SPRAYS EACH NOSTRIL DAILY, RINSE MOUTH OUT AFTER USE. 3 Bottle 3 09/20/2020 07/20/2022 Discontinued Comment on above: Use 2 Sprays in each nostril once daily. ADMINISTER 2 SPRAYS EACH NOSTRIL DAILY, RINSE MOUTH OUT AFTER USE. fluticasone-umeclid in-vilanter (TRELEGY ELLIPTA) 200-62.5-25 mcg inhalation powder (18 sources) Start: 4 take 1 puff(s) by inhalation once daily fluticasone-umeclid in-vilanter (TRELEGY ELLIPTA) 200-62.5-25 mcg inhalation powder Indications: Asthma-COPD overlap syndrome (HCC) Inhale 1 Puff as instructed once daily. 1 Each 11 08/08/2024 Active furosemide 40 mg oral tablet (20 sources) Loop Diuretic Start: 3 End: 4 take 1 tablet by mouth once daily furosemide (LASIX) 40 mg tablet Take 1 tablet by mouth once daily. 90 tablet 3 12/16/2023 Active Start: 10-13-2021 End: 01-26-2023 take 1 tablet by mouth once daily Furosemide 20 mg tablet Active 20 mg PO DAILY December 20, 2022 12:00am Comment on above: Take 1 tablet by sven th once daily. TAKE 1 TABLET BY SVEN TH ONCE DAILY hydroCHLOROthiazide 25 mg oral tablet (20 sources) Thiazide Diuretic Star t: 08-24 End: 10-12 take 1 tablet by mouth once daily Hydrochlorothiazide 25 mg tablet Active 25 mg PO DAILY December 20, 2022 12:00am Comment on above: TAKE 1 TABLET BY SVEN TH ONCE DAILY Take 1 tablet by sven th once daily. ipratropium bromide 0.2 mg/ml inhalation solution (20 sources) Anticholinergic Star t: 04-3 0 take 1 mL by inhalation every six hours as needed for wheezing Ipratropium [place] 0.02 % solution Active 2.5 mL INHALATION EVERY 6 HOURS NEEDED as needed for wheezing/sob December 20, 2022 12:00am Start: 09-20-2020 End: 10-23-2024 ipratropium (ATROVENT) 0.02 % nebulizer solution Indications: COPD with exacerbation (HCC) Use 2.5 mL via nebulizer four times a day as needed. OVER 5-15 MINUTES FOR WHEEZING OR SHORTNESS OF BREATH J44.9 2.5 mL 5 10/23/2024 Active Comment on above: Use 2.5 mL via nebul izer four times daily as needed. OVER 5-15 MINUTES FOR WHEEZING OR SHORTNESS OF BREATH J44.9 Use 2.5 mL via nebul izer four times a day as needed. OVER 5-15 MINUTES FOR WHEEZING OR SHORTNESS OF BREATH J44.9 levoFLOXacin 500 mg oral tablet (9 sources) Quinolone Antimicrobial Start: 10-24-19 End: 10-29-19 take 1 tablet by mouth once daily levoFLOXacin (LEVAQUIN) 500 mg tablet Indications: Pneumonia of both lungs due to infectious organism, unspecified part of lung Take 1 tablet by mouth once daily for 5 days. 5 tablet 10/23/2024 10/28/2024 Active Start: 09-17-2023 End: 09-22-2023 take 1 tablet by mouth once daily levoFLOXacin (LEVAQUIN) 750 mg tablet Take 1 tablet by mouth once daily for 5 days. 5 tablet 09/17/2023 09/22/2023 Start: 11-23-2022 End: 11-28-2022 take 1 tablet by mouth once daily levoFLOXacin (LEVAQUIN) 500 mg tablet Take 1 tablet by mouth once daily for 5 days. 5 tablet 11/23/2022 11/28/2022 Comment on above: Take 1 tablet by sven th once daily for 5 days. LORazepam 0.5 mg oral tablet (20 sources) Benzodiazepine Start: End: take 1 tablet by mouth once daily as needed LORazepam (ATIVAN) 0.5 mg Indications: Severe anxiety with panic Take 1 tablet by mouth once daily as needed for up to 30 days. 15 tablet 0 01/31/2024 03/01/2024 Active Start: 08-09-2023 End: 11-10-2023 take 1 tablet by mouth once daily as needed LORazepam (ATIVAN) 0.5 mg Indications: Severe anxiety with panic Take 1 tablet by mouth once daily as needed for up to 30 days. 15 tablet 0 10/11/2023 11/10/2023 Active Start: 10-26-2022 End: 06-25-2023 take 0.5 tablet by mouth once daily as needed LORazepam (ATIVAN) 0.5 mg Indications: Severe anxiety with panic Take 0.5 tablets by mouth once daily as needed for up to 30 days. 15 tablet 0 05/26/2023 06/25/2023 Active Start: 02-18-2022 End: 03-20-2022 take 1 tablet by mouth once daily as needed LORazepam (ATIVAN) 0.5 mg Indications: Severe anxiety with panic Take 1 (ONE) tablet by mouth once daily as needed for up to 30 days. 14 tablet 0 02/18/2022 03/20/2022 Active Start: 12-17-2021 End: 02-15-2022 take 1 tablet by mouth once daily as needed LORazepam (ATIVAN) 0.5 mg Indications: Severe anxiety with panic Take 1 tablet by mouth once daily as needed for up to 30 days. Do not start before January 16, 2022. 25 tablet 0 01/16/2022 02/15/2022 Active Start: 10-30-2021 End: 11-29-2021 take 1 tablet by mouth once daily as needed LORazepam (ATIVAN) 0.5 mg Indications: Severe anxiety with panic Take 1 tablet by mouth once daily as needed for up to 30 days. 30 tablet 0 10/30/2021 11/29/2021 Active Start: 03-25-2021 End: 10-09-2021 take 1 tablet by mouth once daily as needed LORazepam (ATIVAN) 0.5 mg Indications: Severe anxiety with panic Take 1 tablet by mouth once daily as needed for up to 30 days. 25 tablet 03/25/2021 10/09/2021 Discontinued Comment on above: Take 1 tablet by sven th once daily as needed for up to 30 days. Take 1 tablet by sven th once daily as needed for up to 30 days. Do not start before January 16, 2022. Take 1 (ONE) tablet by mouth once daily as needed for up to 30 days. Take 0.5 tablets by mouth once daily as needed for up to 30 days. Take 0.5 tablets by mouth once daily as needed for up to 30 days. Do not start before May 23, 2023. metroNIDAZOLE 500 mg oral tablet (2 sources) Nitroimidazole Antimicrobial Start: 12-21-19 take 1 tablet by mouth three times daily Metronidazole 500 mg tablet Active 500 mg PO THREE TIMES A DAY December 20, 2022 12:00am 24 hr mirabegron 25 mg extended release oral tablet (20 sources) beta3-Adrenergic Agonist Start: 07-13-20 End: 10-10-19 25 take 1 tablet by mouth once daily mirabegron (MYRBETRIQ) 25 mg Tb24 Indications: Urge incontinence , Stress incontinence Take 1 tablet by mouth once daily. 30 tablet 2 10/11/2024 Active montelukast 10 mg oral tablet (20 sources) Leukotriene Receptor Antagonist Start: 01-05-20 24 End: 05-29-20 24 take 1 tablet by mouth once daily montelukast (SINGULAIR) 10 mg tablet take 1 tablet by mouth once daily. 30 tablet 5 05/29/2024 Active Start: 09-20-2020 End: 07-20-2022 take 1 tablet by mouth once daily montelukast (SINGULAIR) 10 mg tablet Take 1 tablet by mouth once daily. 30 tablet 5 11/25/2021 07/20/2022 Discontinued (Discontinued by Patient) Comment on above: TAKE 1 TABLET BY SVEN ONCE DAILY Take 1 tablet by sven th once daily. nitrofurantoin, macrocrystals 25 mg / nitrofurantoin, monohydrate 75 mg oral capsule (1 source) Nitrofuran Antibacterial Start: End: take 1 capsule by mouth twice daily at mealtime nitrofurantoin monohydrate and macrocrystal (MACROBID) 100 mg capsule Take 1 capsule by mouth two times a day with meals for 5 days. 10 capsule 07/14/2024 07/19/2024 Active nitroglycerin 0.4 mg sublingual tablet (20 sources) Nitrate Vasodilator Start: Nitroglycerin 0.4 mg Tablet, Sublingual Active 0.4 mg SL Q5M as needed for Chest Pain December 20, 2022 12:00am do not exceed 3 doses per episode Start: 12-20-2022 Nitroglycerin Active 0.4 MG SL Q5M December 20, 2022 12:00am do not exceed 3 doses per episode Start: 12-18-2020 End: 10-30-2021 nitroglycerin sublingual (NI TROQUICK) 0.4 mg SL tablet Dissolve 1 tablet under the tongue as needed. FOR CHEST PAIN. IF NO RELIEF CALL 911 25 tablet 10/30/2021 Active Comment on above: Dissolve 1 tablet un charu the tongue as needed. FOR CHEST PAIN. IF NO RELIEF CALL 911 ondansetron 4 mg disintegrating oral tablet (2 sources) Serotonin-3 Receptor Antagonist Start: 12-21-19 take 1 tablet by mouth every eight hours as needed for nausea Ondansetron 4 mg tablet,disintegrati ng Active 4 mg PO EVERY 8 HOURS NEEDED as needed for Nausea December 20, 2022 12:00am polymyxin b 43523 unt/ml / trimethoprim 1 mg/ml ophthalmic solution (3 sources) Dihydrofolate Reductase Inhibitor Antibacterial, Polymyxin-class Antibacterial Start: 06-16-20 End: 06-21-20 24 take 1 drop(s) into the eye(s) every six hours trimethoprim-polymy neelima b (Polytrim) ophthalmic solution Administer 1 drop into the right eye in the morning and 1 drop at noon and 1 drop in the evening and 1 drop before bedtime. Do all this for 5 days. 10 mL 06/16/2024 06/21/2024 Active potassium chloride 10 meq extended release oral capsule (20 sources) Start: 01-29-20 End: 09-20-19 25 take 1 capsule by mouth three times daily potassium chloride SR (MICRO-K) 10 mEq CR capsule Take 1 capsule by mouth three times a day. 270 capsule 3 09/21/2024 Active Start: 11-10-2021 End: 01-26-2023 take 1 capsule by mouth twice daily Potassium Chloride 10 mEq capsule, extended release Active 10 meq PO TWICE A DAY December 20, 2022 12:00am Comment on above: TAKE 1 CAPSULE BY MO UT TWICE DAILY Take 1 capsule by mo ut twice daily. Take 1 capsule by mo ut three times daily. TAKE 1 CAPSULE BY MO [facility] 3 TIMES DAILY predniSONE 20 mg oral tablet (20 sources) Start: 02-06-2025 take 3 tablets by mouth once daily Prednisone 20 mg tablet Active 60 mg PO DAILY February 06, 2025 12:00am Start: 10-23-2024 End: 11-07-2024 take 5 tablets by mouth once daily, then take 4 tablets by mouth once daily, then take 3 tablets by mouth once daily, then take 2 tablets by mouth once daily, then take 1 tablet by mouth once daily predniSONE (DELTASONE) 10 mg tablet Indications: Pneumonia of both lungs due to infectious organism, unspecified part of lung Take 5 tablets by mouth once daily for 3 days, THEN 4 tablets once daily for 3 days, THEN 3 tablets once daily for 3 days, THEN 2 tablets once daily for 3 days, THEN 1 tablet once daily for 3 days. 45 tablet 10/23/2024 11/07/2024 Active Start: 08-08-2024 End: 10-23-2024 predniSONE (DELTASONE) 10 mg tablet Take 4 daily for three days, then 3 daily for three days, then 2 daily for three days, then one daily for three days. 30 tablet 08/08/2024 10/23/2024 Discontinued Start: 01-05-2024 End: 01-10-2024 take 2 tablets by mouth once daily predniSONE (DELTASONE) 20 mg tablet Indications: Asthma with COPD with exacerbation (HCC) (HCC) , Dyspnea and respiratory abnormalities , Wheezing Take 2 tablets by mouth once daily for 5 days. 10 tablet 0 01/05/2024 01/10/2024 Active Start: 11-09-2023 End: 11-14-2023 take 2 tablets by mouth once daily predniSONE (DELTASONE) 20 mg tablet Indications: Asthma with COPD with exacerbation (HCC) (HCC) Take 2 tablets by mouth once daily for 5 days. 10 tablet 0 11/09/2023 11/14/2023 Active Start: 09-17-2023 End: 10-19-2023 take 2 tablets by mouth once daily predniSONE (DELTASONE) 20 mg tablet Take 2 tablets by mouth once daily. 8 tablet 1 09/17/2023 10/19/2023 Discontinued Start: 11-23-2022 End: 12-18-2022 take 2 tablets by mouth once daily predniSONE (DELTASONE) 20 mg tablet Take 2 tablets by mouth once daily. 10 tablet 11/23/2022 12/18/2022 Discontinued (Course of therapy completed) Comment on above: Take 2 tablets by mo uth once daily. Take 2 tablets by mo uth once daily for 5 days. rosuvastatin calcium 5 mg oral tablet (20 sources) HMG-CoA Reductase Inhibitor Start: 12-01-19 End: 12-07-19 take 1 tablet by mouth once daily at bedtime rosuvastatin (CRESTOR) 5 mg tablet Take 1 tablet by mouth daily at bedtime. 90 tablet 3 12/07/2023 Active Comment on above: Take 1 tablet by sven daily at bedtime. semaglutide (OZEMPIC) 0.25 mg or 0.5 mg (2 mg/3 mL) pen (18 sources) Start: 10-05-19 End: 04-03-20 inject 0.5 mg by subcutaneous injection every week semaglutide (OZEMPIC) 0.25 mg or 0.5 mg (2 mg/3 mL) pen Indications: Obesity (BMI 35.0-39.9 without comorbidity) Inject 0.5 mg subcutaneously one time a week. 3 mL 5 10/05/2024 04/03/2025 Active Start: 08-25-2024 End: 10-05-2024 semaglutide (OZEMPIC) 0.25 m g or 0.5 mg (2 mg/3 mL) pen Indications: Obesity (BMI 35.0-39.9 without comorbidity) Inject 0.25 mg subcutaneously one time a week. 3 mL 1 08/25/2024 10/05/2024 Discontinued Start: 08-25-2024 End: 12-15-2024 semaglutide (OZEMPIC) 0.25 m g or 0.5 mg (2 mg/3 mL) pen Indications: Obesity (BMI 35.0-39.9 without comorbidity) Inject 0.25 mg subcutaneously one time a week. 3 mL 1 08/25/2024 12/15/2024 Active Start: 08-10-2024 End: 08-17-2024 semaglutide (OZEMPIC) 0.25 m g or 0.5 mg (2 mg/3 mL) pen Indications: Obesity (BMI 35.0-39.9 without comorbidity) Inject 0.25 mg subcutaneously one time a week. 3 mL 1 08/10/2024 08/17/2024 Discontinued Start: 08-10-2024 End: 11-30-2024 semaglutide (OZEMPIC) 0.25 m g or 0.5 mg (2 mg/3 mL) pen Indications: Obesity (BMI 35.0-39.9 without comorbidity) Inject 0.25 mg subcutaneously one time a week. 3 mL 1 08/10/2024 11/30/2024 Active spironolactone 25 mg oral tablet (20 sources) Aldosterone Antagonist Start: 08-24-2023 End: 02-20-2024 take 1 tablet by mouth once daily spironolactone (ALDACTONE) 25 mg tablet Take 1 tablet by mouth once daily. 90 tablet 1 08/24/2023 Active Start: 01-28-2023 End: 07-27-2023 take 1 tablet by mouth once daily spironolactone (ALDACTONE) 25 mg tablet Take 1 tablet by mouth once daily. 90 tablet 1 01/28/2023 Active Start: 12-22-2022 End: 01-26-2023 take 1 tablet by mouth once daily spironolactone (ALDACTONE) 25 mg tablet Take 1 tablet by mouth once daily. 30 tablet 0 12/22/2022 01/26/2023 Discontinued Comment on above: Take 1 tablet by sven th once daily. traZODone hydrochloride 100 mg oral tablet (20 sources) Serotonin Reuptake Inhibitor Start: 12-20-2022 take 300 mg by mouth once daily Trazodone Active 300 MG PO DAILY December 20, 2022 12:00am Start: 10-13-2021 End: 02-11-2024 traZODone (DESYREL) 100 mg t ablet Indications: Primary insomnia TAKE 3 TABLETS EVERY DAY 270 tablet 3 02/14/2024 Active Start: 12-18-2020 End: 10-10-2021 traZODone (DESYREL) 100 mg t ablet Indications: Primary insomnia TAKE 3 TABLETS EVERY DAY 270 tablet 1 12/18/2020 10/10/2021 Discontinued Comment on above: TAKE 3 TABLETS EVERY DAY Completed/Discontinued Medications Medication Drug Class(es) Dates Sig (Normalized) Sig (Original) cephalexin 500 mg oral capsule (2 sources) Cephalosporin Antibacterial Start: 07-13-2024 End: 07-14-2024 take 1 capsule by mouth twice daily cephALEXin (KEFLEX) 500 mg capsule Take 1 capsule by mouth two times a day for 5 days. 10 capsule 07/13/2024 07/14/2024 Discontinued 0.5 ml dulaglutide 1.5 mg/ml auto-injector (5 sources) GLP-1 Receptor Agonist Start: 10-05-2023 End: 11-04-2023 dulaglutide (TRULICITY) 0.75 mg/0.5 mL pen injector Indications: Class 2 severe obesity due to excess calories with serious comorbidity and body mass index (BMI) of 35.0 to 35.9 in adult (HCC) Inject 0.75 mg subcutaneously one time a week. 2 mL 0 10/05/2023 10/19/2023 Discontinued Comment on above: Inject 0.75 mg subcu taneously one time a week. escitalopram 20 mg oral tablet (15 sources) Serotonin Reuptake Inhibitor Start: 02-25-2022 End: 10-26-2022 take 1 tablet by mouth once daily escitalopram oxalate (LEXAPRO) 20 mg tablet Indications: Anxiety Take 1 tablet by mouth once daily. 30 tablet 3 02/25/2022 10/26/2022 Discontinued (Discontinued by Patient) Comment on above: Take 1 tablet by sven once daily. 30 actuat fluticasone furoate 0.1 mg/actuat / umeclidinium 0.0625 mg/actuat / vilanterol 0.025 mg/actuat dry powder inhaler (20 sources) Anticholinergic, Corticosteroid, beta2-Adrenergic Agonist Start: 11-09-2023 End: 08-08-2024 take 1 puff(s) by inhalation once daily fluticasone-umeclid in-vilanter (TRELEGY ELLIPTA) 100-62.5-25 mcg inhalation powder Indications: Asthma-COPD overlap syndrome (HCC) Inhale 1 Puff as instructed once daily. 1 Each 11 11/09/2023 08/08/2024 Discontinued (Changing Therapy/Dosage Form) Comment on above: Inhale 1 Puff as ins tructed once daily. hydrOXYzine hydrochloride 25 mg oral tablet (11 sources) Antihistamine Start: 02-25-2022 End: 07-20-2022 take 1 tablet by mouth every six hours as needed hydrOXYzine HCl (ATARAX) 25 mg tablet Take 1 tablet by mouth every 6 hours as needed for anxiety. 30 tablet 1 02/25/2022 07/20/2022 Discontinued (Side Effects) Comment on above: Take 1 tablet by sven th every 6 hours as needed for anxiety. 3 ml liraglutide 6 mg/ml pen injector (8 sources) GLP-1 Receptor Agonist Start: 10-01-2023 End: 10-05-2023 liraglutide (VICTOZA) 0.6 mg/ 0.1 ml subcutaneous pen injector Indications: type 2 diabetes mellitus Inject 0.6 mg daily via pen for 1 week; if tolerating then increase to 1.2 mg per week for 1 week. If tolerating increase to 1.8 mg for one week. Continue to increase by 0.6 mg daily at weekly intervals to a target dose of 3 mg once daily as long as tolerating without symptoms. 1 Each 2 10/01/2023 10/05/2023 Discontinued Start: 07-26-2023 End: 09-24-2023 inject 1.8 mg by subcutaneous injection once daily liraglutide (VICTOZA) 0.6 mg/ 0.1 ml subcutaneous pen injector Inject 1.8 mg subcutaneously once daily. 9 mL 3 07/26/2023 09/24/2023 Discontinued Start: 05-21-2023 inject 1.8 mg by sub cutaneous injection once daily liraglutide (VICTOZA) 0.6 mg/ 0.1 ml subcutaneous pen injector Inject 1.8 mg subcutaneously once daily. 9 mL 0 05/21/2023 Active Start: 03-12-2023 End: 04-23-2023 inject 0.6 mg by subcutaneous injection once daily liraglutide (VICTOZA) 0.6 mg/ 0.1 ml subcutaneous pen injector Indications: type 2 diabetes mellitus Inject 0.6 mg daily via pen for at least 7 days. If tolerating well can increase to 1.2 mg inject once daily Dx: Obesity BMI 35, hyperlipidemia, primary hypertension. 6 mL 0 03/12/2023 04/23/2023 Discontinued (Dosage adjustment) Comment on above: Inject 1.8 mg subcut aneously once daily. Inject 0.6 mg daily via pen for at least 7 days. If tolerating well can increase to 1.2 mg inject once daily Dx: Obesity BMI 35, hyperlipidemia, primary hypertension. Inject 0.6 mg daily via pen for 1 week; if tolerating then increase to 1.2 mg per week for 1 week. If tolerating increase to 1.8 mg for one week. Continue to increase by 0.6 mg daily at weekly intervals to a target dose of 3 mg once daily as long as tolerating without symptoms. lisinopril 10 mg oral tablet (20 sources) Angiotensin Converting Enzyme Inhibitor Start: End: take 1 tablet by mouth once daily lisinopril (ZESTRIL, PRINIVIL) 10 mg tablet Indications: Essential hypertension TAKE 1 TABLET BY MOUTH ONCE DAILY 90 tablet 3 07/03/2021 07/20/2022 Discontinued (Discontinued by Patient) Comment on above: TAKE 1 TABLET BY SVEN TH ONCE DAILY meloxicam 15 mg oral tablet (10 sources) Nonsteroidal Anti-inflammatory Drug Start: End: take 1 tablet by mouth once daily for pain meloxicam (MOBIC) 15 mg tablet Indications: Chronic midline low back pain without sciatica Take 1 tablet by mouth once daily. for pain. Take with food. 30 tablet 09/17/2023 10/17/2023 Comment on above: Take 1 tablet by sven once daily. for pain. Take with food. naproxen 500 mg oral tablet (20 sources) Nonsteroidal Anti-inflammatory Drug Start: End: take 1 tablet by mouth twice daily as needed for pain naproxen (NAPROSYN) 500 mg tablet Indications: Fall, initial encounter , Pain and swelling of left knee Take 1 tablet by mouth twice daily as needed (for pain/inflammation). Take with food. 30 tablet 1 03/25/2021 11/23/2022 Discontinued (Discontinued by Patient) Comment on above: Take 1 tablet by sven th twice daily as needed (for pain/inflammation). Take with food. 24 hr nicotine 0.583 mg/hr transdermal system (20 sources) Cholinergic Nicotinic Agonist Start: End: apply 1 dose transdermal route every twenty-four hours nicotine (NICODERM CQ) 14 mg/24 hr Indications: Tobacco use current Apply 1 Patch as directed every 24 hours. 28 Patch 12/22/2022 10/19/2023 Discontinued Start: 12-22-2022 End: 10-19-2023 nicotine (NICODERM CQ) 7 mg/ 24 hr Indications: Tobacco use current Apply 1 Patch as directed every 24 hours. 14 Patch 1 12/22/2022 10/19/2023 Discontinued Comment on above: Apply 1 Patch as dir ected every 24 hours. perflutren lipid microspheres 1.3 mL in NaCl (PF) 0.9% 10 mL injection (DEFINITY) (20 sources) Start: 11-30-2022 End: 02-29-2024 perflutren lipid microspheres 1.3 mL in NaCl (PF) 0.9% 10 mL injection (DEFINITY) Start: 12-01-2021 End: 03-02-2023 perflutren lipid microsphere s 1.3 mL in NaCl (PF) 0.9% 10 mL injection (DEFINITY) phentermine hydrochloride 37.5 mg oral tablet (8 sources) Sympathomimetic Amine Anorectic Start: 07-18-2024 End: 08-17-2024 take 1 tablet by mouth once daily Phentermine HCl (ADIPEX-P) 37.5 mg tablet Indications: Obesity, Class I, BMI 30-34.9 Take 1 tablet by mouth once daily for 30 days. 30 tablet 07/18/2024 08/10/2024 Discontinued Start: 03-25-2021 End: 04-24-2021 take 31-31.9 capsules by mouth once daily Phentermine HCl (ADIPEX-P) 37.5 mg capsule Indications: Class 1 obesity due to excess calories with serious comorbidity and body mass index (BMI) of 31.0 to 31.9 in adult Take 1 capsule by mouth once daily for 30 days. 30 capsule 03/25/2021 04/24/2021 semaglutide, weight loss, (WEGOVY) 0.25 mg/0.5 mL pen injector (2 sources) Start: 03-02-2023 semaglutide, weight loss, (WEGOVY) 0.25 mg/0.5 mL pen injector Indications: Class 2 severe obesity due to excess calories with serious comorbidity and body mass index (BMI) of 35.0 to 35.9 in adult (HCC) Inject 0.5 mL subcutaneously one time a week. 4 Each 0 03/02/2023 Active Comment on above: Inject 0.5 mL subcut aneously one time a week. sertraline 100 mg oral tablet (20 sources) Serotonin Reuptake Inhibitor Start: 09-03-2023 End: 10-19-2023 take 1 tablet by mouth once daily sertraline (ZOLOFT) 100 mg tablet Take 1 tablet by mouth once daily. 90 tablet 1 09/03/2023 10/19/2023 Discontinued Start: 11-23-2022 End: 05-20-2023 take 1 tablet by mouth once daily Sertraline 50 mg tablet Active 50 mg PO DAILY December 20, 2022 12:00am Start: 10-26-2022 End: 11-23-2022 take 1 tablet by mouth once daily, then take 2 tablets by mouth once daily sertraline (ZOLOFT) 25 mg tablet Take 1 tablet by mouth once daily. If tolerating after 2 weeks, increase to 2 tablets once daily 45 tablet 1 10/26/2022 11/23/2022 Discontinued Comment on above: Take 1 tablet by sven th once daily. If tolerating after 2 weeks, increase to 2 tablets once daily Take 1 tablet by sven th once daily. 125 ml sodium chloride 9 mg/ml prefilled syringe (20 sources) Start: 12-01-2021 End: 02-29-2024 sodium chloride 0.9 % (flush) 10 mL (BD POSIFLUSH) tirzepatide (MOUNJARO) 2.5 mg/0.5 mL pen injector (14 sources) Start: 07-11-2024 End: 08-08-2024 tirzepatide (MOUNJARO) 2.5 mg/0.5 mL pen injector Indications: Class 2 obesity with body mass index (BMI) of 37.0 to 37.9 in adult, unspecified obesity type, unspecified whether serious comorbidity present Inject 2.5 mg subcutaneously one time a week. 2 mL 2 07/11/2024 08/08/2024 Discontinued Start: 07-11-2024 End: 10-09-2024 tirzepatide (MOUNJARO) 2.5 m g/0.5 mL pen injector Indications: Class 2 obesity with body mass index (BMI) of 37.0 to 37.9 in adult, unspecified obesity type, unspecified whether serious comorbidity present Inject 2.5 mg subcutaneously one time a week. 2 mL 2 07/11/2024 10/09/2024 Active Start: 09-24-2023 End: 09-28-2023 inject 2.5 mg by subcutaneous injection every week tirzepatide (MOUNJARO) 2.5 mg/0.5 mL pen injector Inject 2.5 mg subcutaneously one time a week. 2 mL 2 09/24/2023 09/28/2023 Discontinued Start: 09-24-2023 End: 12-23-2023 inject 2.5 mg by subcutaneous injection every week tirzepatide (MOUNJARO) 2.5 mg/0.5 mL pen injector Inject 2.5 mg subcutaneously one time a week. 2 mL 2 09/24/2023 12/23/2023 Active Start: 09-24-2023 End: 09-24-2023 inject 2.5 mg by subcutaneous injection every week tirzepatide (MOUNJARO) 2.5 mg/0.5 mL pen injector Inject 2.5 mg subcutaneously one time a week. 2 mL 2 09/24/2023 09/24/2023 Discontinued Comment on above: Inject 2.5 mg subcut aneously one time a week. Problems Active Problems Problem Classification Problem Date Documented Date Episodic/Chronic Abdominal pain (1 source) Unspecified abdominal pain; Translations: [Unspecified abdominal pain] Onset: 12-24-2022 Episodic Anxiety disorders (20 sources) Anxiety; Translations: [Anxiety disorder, unspecified] Onset: 02-10-2018 02-10-2018 Chronic Chronic obstructive pulmonary disease and bronchiectasis (20 sources) Chronic obstructive lung disease; Translations: [Chronic obstructive pulmonary disease, unspecified] Onset: 07-08-2005 Chronic Diseases of white blood cells (2 sources) Eosinophil count raised; Translations: [Eosinophilia, unspecified type] 11-09-2023 Chronic Disorders of lipid metabolism (20 sources) Mixed hyperlipidemia; Translations: [Mixed hyperlipidemia] Onset: 09-20-2023 Chronic Diverticulosis and diverticulitis (2 sources) Diverticulitis of intestine; Translations: [Diverticulitis of intestine, part unspecified, without perforation or abscess without bleeding] 12-20-2022 Chronic E Codes: Fall (1 source) Fall; Translations: [Unspecified fall, initial encounter] 03-25-2021 Episodic Essential hypertension (20 sources) Essential hypertension; Translations: [Essential (primary) hypertension] Onset: 07-08-2005 11-26-2015 Chronic Fluid and electrolyte disorders (20 sources) Hypokalemia; Translations: [Hypokalemia] Onset: 07-09-2005 07-09-2005 Episodic Genitourinary symptoms and ill-defined conditions (8 sources) Genuine stress incontinence; Translations: [Stress incontinence (female) (male)] Onset: 07-11-2024 07-11-2024 Chronic Miscellaneous mental health disorders (20 sources) Primary insomnia; Translations: [Primary insomnia] Onset: 11-26-2015 08-18-2021 Chronic Mood disorders (20 sources) Major depressive disorder; Translations: [Major depressive disorder, single episode, unspecified] Onset: 07-09-2005 12-03-2017 Chronic Nonspecific chest pain (20 sources) Chest pain; Translations: [Chest pain, unspecified] Onset: 12-01-2021 Episodic Nutritional deficiencies (1 source) Vitamin D deficiency, unspecified; Translations: [Vitamin D deficiency] Onset: 01-05-2024 Chronic Other aftercare (1 source) 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; Translations: [Medication management] Onset: 10-23-2024 Episodic Other circulatory disease (1 source) H/O: heart disorder; Translations: [Personal history of other diseases of the circulatory system] 02-06-2025 Episodic Other connective tissue disease (1 source) Plantar fasciitis of right foot; Translations: [Plantar fascial fibromatosis] Episodic Other diseases of veins and lymphatics (1 source) Lymphedema; Translations: [Lymphedema, not elsewhere classified] 02-06-2025 Chronic Other eye disorders (1 source) Subconjunctival hemorrhage of right eye; Translations: [Conjunctival hemorrhage, right eye] 06-16-2024 Episodic Other eye disorders (1 source) Pain in eye; Translations: [Ocular pain, right eye] 06-16-2024 Episodic Other eye disorders (2 sources) Conjunctival hemorrhage, right eye; Translations: [Conjunctival hemorrhage, right eye] Onset: 06-16-2024 Episodic Other eye disorders (2 sources) Ocular pain, right eye; Translations: [Ocular pain, right eye] Onset: 06-16-2024 Episodic Other lower respiratory disease (5 sources) Dyspnea; Translations: [Shortness of breath] Episodic Other lower respiratory disease (5 sources) Disorder of diaphragm; Translations: [Disorders of diaphragm] Episodic Other lower respiratory disease (2 sources) Nodule of lung; Translations: [Solitary pulmonary nodule] Episodic Other lower respiratory disease (2 sources) Dyspnea on exertion; Translations: [Other forms of dyspnea] Episodic Other lower respiratory disease (3 sources) Hypoxia; Translations: [Hypoxemia] Episodic Other lower respiratory disease (2 sources) Radiologic infiltrate of lung ; Translations: [Other nonspecific abnormal finding of lung field] 10-13-2023 Episodic Other lower respiratory disease (2 sources) H/O: pneumonia; Translations: [Personal history of pneumonia (recurrent)] 10-13-2023 Episodic Other lower respiratory disease (3 sources) Wheezing; Translations: [Wheezing] 01-05-2024 Episodic Other lower respiratory disease (3 sources) Cough; Translations: [Cough, unspecified type] 01-05-2024 Episodic Other lower respiratory disease (2 sources) Multiple nodules of lung; Translations: [Other nonspecific abnormal finding of lung field] 10-23-2024 Episodic Other lower respiratory disease (1 source) Other nonspecific abnormal finding of lung field; Translations: [Lung nodules] Onset: 10-23-2024 Episodic Other non-traumatic joint disorders (1 source) Pain in left knee; Translations: [Pain in joint, lower leg] 03-25-2021 Episodic Other nutritional; endocrine; and metabolic disorders (5 sources) Body mass index 30+ - obesity; Translations: [Obesity, unspecified] Chronic Other nutritional; endocrine; and metabolic disorders (20 sources) Severe obesity; Translations: [Morbid (severe) obesity due to excess calories] Onset: 09-24-2023 03-02-2023 Chronic Other nutritional; endocrine; and metabolic disorders (2 sources) Obesity; Translations: [Obesity, unspecified] 10-19-2023 Chronic Other nutritional; endocrine; and metabolic disorders (20 sources) Obese class I; Translations: [Obesity, unspecified] Onset: 10-19-2023 10-19-2023 Chronic Other nutritional; endocrine; and metabolic disorders (1 source) Obese class II; Translations: [Class 2 obesity] 08-08-2024 Chronic Other nutritional; endocrine; and metabolic disorders (1 source) Body mass index (BMI) 37.0-37.9, adult; Translations: [Class 2 obesity with body mass index (BMI) of 37.0 to 37.9 in adult, unspecified obesity type, unspecified whether serious comorbidity present] Onset: 07-11-2024 Chronic Other screening for suspected conditions (not mental disorders or infectious disease) (20 sources) Patient encounter status; Translations: [Encounter for screening mammogram for malignant neoplasm of breast] Onset: 10-23-2024 Episodic Other upper respiratory disease (2 sources) Allergic rhinitis; Translations: [Allergic rhinitis, unspecified] Chronic Other upper respiratory disease (1 source) Acute bronchospasm; Translations: [Acute bronchospasm] 02-06-2025 Episodic Pleurisy; pneumothorax; pulmonary collapse (3 sources) Pleural effusion; Translations: [Pleural effusion, not elsewhere classified] Episodic Pneumonia (except that caused by tuberculosis or sexually transmitted disease) (2 sources) Bilateral pneumonia; Translations: [Pneumonia, unspecified organism] Onset: 10-23-2024 10-23-2024 Episodic Residual codes; unclassified (20 sources) Desaturation of blood; Translations: [Idiopathic sleep related nonobstructive alveolar hypoventilation] Onset: 10-26-2014 08-18-2021 Chronic Residual codes; unclassified (1 source) Edema; Translations: [Edema, unspecified] Episodic Residual codes; unclassified (6 sources) Tobacco user; Translations: [Tobacco use] Episodic Residual codes; unclassified (2 sources) Postmenopausal state; Translations: [Asymptomatic menopausal state] 09-24-2023 Episodic Residual codes; unclassified (1 source) Tobacco use; Translations: [Tobacco use current] Onset: 10-23-2024 Episodic Residual codes; unclassified (1 source) Not for resuscitation; Translations: [Do not resuscitate] 02-06-2025 Episodic Respiratory failure; insufficiency; arrest (adult) (2 sources) Dependence on nocturnal oxygen therapy; Translations: [Dependence on supplemental oxygen] 01-05-2024 Chronic Spondylosis; intervertebral disc disorders; other back problems (3 sources) Chronic low back pain; Translations: [Chronic midline low back pain without sciatica] 09-24-2023 Episodic Substance-related disorders (12 sources) Tobacco user; Translations: [Nicotine dependence, unspecified, uncomplicated] Onset: 10-26-2014 08-18-2021 Chronic Unclassified (1 source) OPENED IN ERROR 09-26-2024 Unclassified (1 source) Obesity, Class I, BMI 30-34.9; Translations: [Obesity, Class I, BMI 30-34.9] Onset: 10-19-2023 Unclassified (1 source) Class 2 obesity with body mass index (BMI) of 37.0 to 37.9 in adult, unspecified obesity type, unspecified whether serious comorbidity present; Translations: [Class 2 obesity with body mass index (BMI) of 37.0 to 37.9 in adult, unspecified obesity type, unspecified whether serious comorbidity present] Onset: 07-11-2024 Unclassified (1 source) Asthma-COPD overlap syndrome (HCC); Translations: [Asthma-COPD overlap syndrome (HCC)] Onset: 01-05-2024 Past or Other Problems Problem Classification Problem Date Documented Date Episodic/Chronic Asthma (20 sources) Asthma; Translations: [Unspecified asthma, uncomplicated] Onset: 07-08-2005 Resolved: 11-26-2014 Chronic Biliary tract disease (20 sources) Biliary calculus; Translations: [Calculus of gallbladder with chronic cholecystitis without obstruction] Onset: 04-08-2013 Resolved: 10-26-2014 10-26-2014 Episodic Cardiac dysrhythmias (20 sources) Palpitations; Translations: [Palpitations] Onset: 04-22-2006 Resolved: 10-26-2014 10-26-2014 Episodic Diabetes mellitus without complication (20 sources) Impaired fasting glycemia; Translations: [Impaired fasting glucose] Onset: 12-05-2010 12-05-2010 Episodic Genitourinary symptoms and ill-defined conditions (2 sources) Abnormal urinalysis; Translations: [Unspecified abnormal findings in urine] Onset: 07-13-2024 07-13-2024 Episodic Other diseases of veins and lymphatics (20 sources) Peripheral venous insufficiency; Translations: [Venous insufficiency (chronic) (peripheral)] Onset: 05-24-2006 05-24-2006 Episodic Other lower respiratory disease (20 sources) Paralysis of diaphragm ; Translations: [Disorders of diaphragm] Onset: 11-25-2021 11-25-2021 Episodic Other lower respiratory disease (1 source) Dyspnea, unspecified; Translations: [Dyspnea and respiratory abnormalities] Onset: 01-05-2024 Episodic Other lower respiratory disease (1 source) Other abnormalities of breathing; Translations: [Dyspnea and respiratory abnormalities] Onset: 01-05-2024 Episodic Other lower respiratory disease (1 source) Wheezing; Translations: [Wheezing] Onset: 01-05-2024 Episodic Residual codes; unclassified (20 sources) Insomnia; Translations: [Insomnia, unspecified] Onset: 05-24-2006 05-24-2006 Episodic Residual codes; unclassified (20 sources) Family history of cancer of colon; Translations: [Family history of malignant neoplasm of digestive organs] Onset: 11-09-2014 11-09-2014 Episodic Residual codes; unclassified (20 sources) Tobacco use and exposure - finding; Translations: [Tobacco use] Onset: 10-26-2014 Episodic Unclassified (1 source) Patient encounter status 10-23-2024 Results Test Name Value Interpretation Reference Range Facility Absolute lymphocyte countOrd ered By: Mason Styles on 02-06-2025 Lymphocytes Auto (Unsp spec) [#/Vol] 2.68 10*3/uL 0.83-4.51 [facility] Absolute neutrophil countOrd ered By: Mason Styles on 02-06-2025 Neutrophils (Bld) [#/Vol] 5.4 10*3/uL 2.0-7.7 [facility] Automated lymphocyte count a s percentage of total leukocytesOrdered By: Mason Styles on 02-06-2025 Lymphocytes/100 WBC Auto (Unsp spec) 29.4 % 19-41 [facility] Basophil percentageOrdered B y: Mason Styles on 02-06-2025 Basophils/100 WBC (Bld) 0.5 % 0-1 [facility] Blood base excess determinat ionOrdered By: Mason Styles on 02-06-2025 Base excess Calc (BldV) [Moles/Vol] 13 mmol/L High -2-2 [facility] Blood bicarbonate measuremen tOrdered By: Mason Styles on 02-06-2025 HCO3 (Bld) [Moles/Vol] 39.8 mmol/L High 22-26 [facility] Eosinophil percentageOrdered By: Masonroselyn Styles on 02-06-2025 Eosinophils/100 WBC (Bld) 2.4 % 0-5 [facility] Erythrocyte distribution wid th ratioOrdered By: Masonroselyn Styles on 02-06-2025 Erythrocyte distribution width (RBC) [Ratio] 15.1 % High 11.6-14.6 [facility] Erythrocyte distribution wid th standard deviationOrdered By: Masonroselyn Styles on 02-06-2025 Erythrocyte distribution width (RBC) [Ratio] 56.4 fl High 35.1-43.9 [facility] Hematocrit Auto (Bld) [Volum e fraction]Ordered By: Masonroselyn Styles on 02-06-2025 Hematocrit (Bld) [Volume fraction] 53.2 % High 37-47 [facility] Hemoglobin measurementOrdere d By: Mason Styles on 02-06-2025 Hemoglobin (Bld) [Mass/Vol] 16.1 g/dL High 12.0-15.0 [facility] Immature granulocytes/100 WB C Auto (Bld)Ordered By: Masonroselyn Styles on 02-06-2025 Immature granulocytes/100 WBC (Bld) 0.400 % 0.0-0.9 [facility] Comment on above: IG% - Immature Granu locytes (promyelocytes, myelocytes and metamyelocytes) > 1% indicates that a LEFT SHIFT is Present. Lactic acid measurementOrder ed By: Mason Styles on 02-06-2025 Lactate [Moles/Vol] 1.1 mmol/L 0.0-2.0 [facility] MCV (mean corpuscular volume ) determinationOrdered By: Masonroselyn Styles on 02-06-2025 MCV (RBC) [Entitic vol] 99.6 fL High 81-99 [facility] Mean corpuscular hemoglobin (MCH) determinationOrdered By: Masonroselyn Styles on 02-06-2025 MCH (RBC) [Entitic mass] 30.1 pg 27.0-32.0 [facility] Mean corpuscular hemoglobin concentration (MCHC) determinationOrdered By: Mason Styles on 02-06-2025 MCHC (RBC) [Mass/Vol] 30.3 g/dL Low 32-36 [facility] Mean platelet volume determi nationOrdered By: Mason Styles on 02-06-2025 Platelet mean volume (Bld) [Entitic vol] 9.5 fL 6.2-12.0 [facility] Measurement, pHOrdered By: Cooper Styles on 02-06-2025 pH (Unsp spec) 7.29 [pH] Low 7.35-7.45 [facility] Monocyte percentageOrdered B y: Mason Styles on 02-06-2025 Monocytes/100 WBC (Bld) 8.2 % 0-10 [facility] Neutrophil percentageOrdered By: Mason Styles on 02-06-2025 Neutrophils/100 WBC (Bld) 59.1 % 47-70 [facility] No Panel InformationOrdered By: Mason Styles on 02-06-2025 Bld Gas Crit Called To/Read Back By Yes [facility] Blood Gas Sample Site L Radial [facility] Blood Gas Specimen Type ART [facility] Blood Gas Vent Mode Not entered [facility] Oxygen Delivery Device Not entered [facility] Nucleated red blood cell per centageOrdered By: Mason Styles on 02-06-2025 Nucleated RBC/100 WBC (Bld) [Ratio] 0 % 0-5 [facility] Platelet countOrdered By: Katelyn Styles on 02-06-2025 Platelets (Bld) [#/Vol] 252 10*3/uL 150-450 [facility] RBC Auto (Bld) [#/Vol]Ordere d By: Mason Styles on 02-06-2025 RBC (Bld) [#/Vol] 5.34 10*6/uL 4.2-5.4 [facility] Total carbon dioxide measure mentOrdered By: Mason Styles on 02-06-2025 CO2 [Moles/Vol] 42 mmol/L [facility] White blood cell (WBC) count Ordered By: Mason Styles on 02-06-2025 WBC (Bld) [#/Vol] 9.1 10*3/uL 4.4-11.0 [facility] SCREENINGon 11-17-2024 [facility] SCREENING * * *Final Report* * * DATE OF EXAM: Nov 17 2024 1:23PM [facility] [id number] - [facility] SCREENING / PROCEDURE REASON: Encounter for screening mammogram for breast cancer * * * * Physician Interpretation * * * * RESULT: [address] [address] [place] [address] #[id number] - [facility] SCREENING HISTORY: 59 year-old patient seen for screening. Patient is asymptomatic in both breasts. Patient states no personal history of breast cancer. The patient has a family history of breast and ovarian cancer. COMPARISON STUDIES: The present examination has been compared to prior imaging studies dated 11/22/2020 (mammogram), 12/11/2021 (mammogram), 12/18/2022 (mammogram) and 01/26/2023 (mammogram). MAMMOGRAM TECHNIQUE: The study was acquired using full field digital technology and interpreted from soft copy. MAMMOGRAM FINDINGS: There are scattered areas of fibroglandular density. No suspicious masses, calcifications or other abnormalities are seen in either breast. There are no significant interval changes. The study is suboptimal in positioning but was the best imaging that could be taken at this time. IMPRESSION: There is no mammographic evidence of malignancy in either breast. Routine screening mammogram is recommended. Annual mammogram will be due in 1 year. BI-RADS Category 1: Negative RISK: Based on the Tyrer-Cuzick (TC) risk assessment model, this patient has a 5.5% lifetime risk of developing breast cancer, meaning they are at average risk for developing breast cancer. However, this is only an estimate based on available history provided on the patient's questionnaire. We encourage all patients to talk with their providers about these results, further recommendations for managing breast health, and appropriate supplemental screening options if the patient has dense breast tissue. Interpreting Radiologist: Valerio Troy M.D. Resident/Fellow: Ariane Buck D.O. Electronically signed on: 11/20/2024 Tire Buffer: ANTHONY Transcribe Date/Time: Nov 17 2024 1:06P Dictated by: ARIANE BUCK DO This examination was interpreted and the report reviewed and electronically signed by: VALERIO TROY MD on Nov 20 2024 3:28PM EST [id number] Normal [facility] [place] 11-02-2024 [facility]UR[facility] Telephone ([facility]) -------- FRANCIS DIEZ ([id number]) 1965 F Date Time Provider Department 11/02/24 AARON MOURA [facility] During your visit today, we recorded the following information about you: Aaron Moura APRN.CNP 11/02/2024 4:38 PM Signed Left message requesting pt to call back with update on recent illness. SONAM Hassan Melinda, APRN.CNP 11/21/2024 3:51 PM Signed Left message for pt to give an update. Sent My Chart. Aaron Moura APRN.CNP Allergies As of Date: 11/02/2024 Noted Allergy Reaction BENADRYL (DIPHENHYDRAMINE HCL) 11/13/2014 12 - Shortness of Breath Comments: She is not sure of the reaction. Was given it in the ER years ago. PENICILLINS 09/01/2010 4 - Hives Date Reviewed: 10/23/2024 Reviewed by: Aaron Moura APRN.CNP - Fully Assessed Reason for Visit: Patient Update [1234] Prescriptions as of 11/21/2024 - albuterol (PROVENTIL) 2.5 mg /3 mL (0.083 %) nebulizer solution Use 3 mL via nebulizer every 4 hours as needed for wheezing/shortness of breath. J44.9 - ipratropium (ATROVENT) 0.02 % nebulizer solution Use 2.5 mL via nebulizer four times a day as needed. OVER 5-15 MINUTES FOR WHEEZING OR SHORTNESS OF BREATH J44.9 - cholecalciferol (VITAMIN D3) 1,000 unit tab tablet Take 1 tablet by mouth once daily. - mirabegron (MYRBETRIQ) 25 mg Tb24 Take 1 tablet by mouth once daily. - semaglutide (OZEMPIC) 0.25 mg or 0.5 mg (2 mg/3 mL) pen Inject 0.5 mg subcutaneously one time a week. - potassium chloride SR (MICRO-K) 10 mEq CR capsule Take 1 capsule by mouth three times a day. - buPROPion XL (WELLBUTRIN XL) 300 mg 24 hr tablet Take 1 tablet by mouth once daily. - svtjaleupdg-kmqlbbkof-sy lanter (TRELEGY ELLIPTA) 200-62.5-25 mcg inhalation powder Inhale 1 Puff as instructed once daily. - DULoxetine (CYMBALTA) 60 mg capsule Take 1 capsule by mouth once daily. - montelukast (SINGULAIR) 10 mg tablet take 1 tablet by mouth once daily. - benzonatate (TESSALON PERLE) 100 mg capsule take 1 capsule by mouth three times daily as needed for cough - albuterol HFA (VENTOLIN HFA) 90 mcg/actuation inhaler Inhale 2 Puffs as instructed every 4 hours as needed for wheezing/shortness of breath. - traZODone (DESYREL) 100 mg tablet TAKE 3 TABLETS EVERY DAY - furosemide (LASIX) 40 mg tablet Take 1 tablet by mouth once daily. - rosuvastatin (CRESTOR) 5 mg tablet Take 1 tablet by mouth daily at bedtime. - cyclobenzaprine (FLEXERIL) 10 mg tablet Take 1 tablet by mouth at bedtime as needed for muscle spasm or pain. - spironolactone (ALDACTONE) 25 mg tablet Take 1 tablet by mouth once daily. - nitroglycerin sublingual (NITROQUICK) 0.4 mg SL tablet Dissolve 1 tablet under the tongue as needed. FOR CHEST PAIN. IF NO RELIEF CALL 911 - COMPOUNDED PRESCRIPTION Oxygen 2L at night and as needed - COMPOUNDED PRESCRIPTION Nebulizer machine DX: 496/143.90 Problem List As Of Date 11/02/2024 Noted Resolved COPD with chronic bronchitis (HCC) [J44.89] 07/08/2005 Essential hypertension [I10] 07/08/2005 Unspecified asthma(493.90) [J45.909] 07/08/2005 11/26/2014 HYPOPOTASSEMIA [E87.6] 07/09/2005 Major depressive disorder [F32.9] 07/09/2005 Palpitations [R00.2] 04/22/2006 10/26/2014 INSOMNIA NOS [G47.00] 05/24/2006 VENOUS INSUFFICIENCY NOS [I87.2] 05/24/2006 BRONCHIECTASIS W/O ACUTE EXACERBATN [J47.9] 10/04/2008 Impaired fasting glucose [R73.01] 12/05/2010 Cholecystitis with cholelithiasis [K80.10] 04/08/2013 10/26/2014 Tobacco use [Z72.0] 10/26/2014 Nocturnal oxygen desaturation [G47.34] 10/26/2014 Family history of colon cancer [Z80.0] 11/09/2014 Primary insomnia [F51.01] 11/26/2015 Anxiety [F41.9] 02/10/2018 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 Chest pain [R07.9] 12/01/2021 Mixed hyperlipidemia [E78.2] 09/20/2023 Class 2 severe obesity due to excess calories w*09/24/2023 Obesity, Class I, BMI 30-34.9 [E66.811] 10/19/2023 Encounter Status:Closed by AARON MOURA on 11/21/24 [facility] CNOVon 10-23-2024 CNOV Office Visit (PULMWS ) -------- FRANCIS DIEZ ([id number]) 1965 F Date Time Provider Department 10/23/24 1:30 PM AARON MOURA During your visit today, we recorded the following information about you: Temperature Pulse Blood pressure Weight 97.8 degrees 77/minute 150/89 94.1 kg Aaron Moura, ROOF TRUSS DETAILER.PLANOGRAPH OPERATOR 11/02/2024 4:38 PM Addendum LUNG SCREENING ANNUAL VISIT PRIMARY CARE PHYSICIAN: Mariluz High MD PULMONARY PROVIDER: Dr. Minh Garner Results will be communicated via letter or electronic record if applicable. Visit Delivery: In Person Patient Visit Type: established Current or Ex-smoker? [Current Exam Type: annual LDCT Number of Pack Years: 86 Current smoker (=0) The patient's smoking history is similar to prior year shared decision visit. The reason for the discrepancy is NA Chief Complaint: Established patient in lung cancer screening program here for annual follow-up. Impression / Recommendations Francis Diez presents for annual lung cancer screening annual exam and nodule evaluation. Plan: Indeterminate pulmonary nodules: No previously identified nodules. However, new opacities in RADHA and RLL. Pt has chronic hemidiaphram elevation on the left. Nature of the lung nodule(s) and the options for further evaluation discussed in detail with patient. Francis Diez expressed understanding and is in agreement with plan. 2. Encounter for screening for malignant neoplasm of respiratory organs I have determined that the patient is eligible for continued low dose CT screening based on age, absence of signs or symptoms of lung cancer, smoking history and total pack years. The patient was counseled on the importance of adherence to annual LDCT lung cancer screening, impact of comorbidities and ability or willingness to undergo diagnosis and treatment. The patient understands and feels comfortable with it: Yes. 3. Nicotine Dependence The patient was counseled on the importance of smoking cessation if current smoker and, if appropriate, offered additional tobacco cessation counseling services - Smoking Cessation Counseling. 4. Pneumonia of both lungs due to infectious organism, unspecified part of lung Recommended treatment with antibiotics and prednisone taper. If new or worsening symptoms she should follow up with PCP or superintendent transportation. If decrease in oximetry she should present to the ER. - predniSONE (DELTASONE) 10 mg tablet; Take 5 tablets by mouth once daily for 3 days, THEN 4 tablets once daily for 3 days, THEN 3 tablets once daily for 3 days, THEN 2 tablets once daily for 3 days, THEN 1 tablet once daily for 3 days. Dispense: 45 tablet; Refill: 0 - levoFLOXacin (LEVAQUIN) 500 mg tablet; Take 1 tablet by mouth once daily for 5 days. Dispense: 5 tablet; Refill: 0 5. COPD with exacerbation (HCC) see above - albuterol (PROVENTIL) 2.5 mg /3 mL (0.083 %) nebulizer solution; Use 3 mL via nebulizer every 4 hours as needed for wheezing/shortness of breath. J44.9 Dispense: 3 mL; Refill: 5 - ipratropium (ATROVENT) 0.02 % nebulizer solution; Use 2.5 mL via nebulizer four times a day as needed. OVER 5-15 MINUTES FOR WHEEZING OR SHORTNESS OF BREATH J44.9 Dispense: 2.5 mL; Refill: 5 SMOKING CESSATION COUNSELING-deferred I spent a total of 30 minutes on the date of the service which included preparing to see the patient, [id number] patient care, completing clinical documentation, performing a medically appropriate examination, counseling and educating the patient/family/caregiver , ordering medications, tests, or procedures, communicating with other HCPs (not separately reported), independently interpreting results (not separately reported), communicating results to the patient/family/caregiver , and care coordination (not separately reported). Aaron Moura APRN.[facility] October 23, 2024 1:32 PM -------- History of Present Illness: Francis Diez is a 59 year old female who is presenting today for annual lung cancer screening LDCT and nodule surveillance/management. Patient has no lung nodules found on previous lung cancer screening LDCT. Last LDCT was performed on 12/29/2022 and was LUNG RADS Category 1. Previous potentially significant incidental findings on imaging: None. Patient is a current smoker with a 86 pack year history. Patient is currently still smoking 0.25 packi cigarettes daily. Patient will continue to be eligible for lung cancer screening until age 75. Started x 3 weeks ago with feeling run down, runny nose, and cough. Cough persistent still. Took some prednisone last week-20 mg 2 a day for 4 days, then 1 a day for 3 days. Using inhalers and not helping much. Feeling more short of breath, having coughing jags, green sputum, wheezing. No nausea or vomiting (more content not included)... Normal [facility] CT Chest for screening WO co ntraston 10-23-2024 IMPRESSION: LungRADS category: 0 LungRADS modifier: None LungRADS 0 reason: n/a Recommendations: New patchy peribronchial nodular opacities in the left upper lobe, likely inflammatory/infectious in etiology. New consolidative opacities in the right lower lobe, likely atelectasis. Follow-up in 1-3 months is suggested. Other actionable findings: === Reference: [employer]. Lung CT Screening Reporting and Data System (Lung-RADS). Available at: http://www.acr.org/Quali ty-Safety/Resources/Lung RADS Tire Buffer: PSCJefferson Transcribe Date/Time: Oct 23 2024 3:05P Dictated by : LEANN FLORES MD This examination was interpreted and the report reviewed and electronically signed by: LEANN FLORES MD on Oct 23 2024 3:13PM [facility] DIVISION OF RADIOLOGY * * *Final Report* * * DATE OF EXAM: Oct 23 2024 1:17PM [facility] 0562 - CT LUNG SCREEN WO IVCON / PROCEDURE REASON: multiple diagnoses * * * * Physician Interpretation * * * * EXAMINATION: CHEST CT WITHOUT CONTRAST (LOW-DOSE CT LUNG CANCER SCREENING PROTOCOL) CLINICAL HISTORY: Lung cancer LDCT screening ? absence of signs or symptoms of lung cancer. Nicotine dependence (cigarettes). Subsequent (annual) Technique: Spiral CT acquisition of the chest from the thoracic inlet to the upper abdomen without contrast. MQ: CTLCS_6 Patient characteristics: * Dvqw-dh-Kokcs: 1965; Age at exam: 59 years * Gender: Female * Lung Disease: Asymptomatic (no signs or symptoms of lung disease) * Number of Pack Years: 86 * Current smoker (=0) or Number of Years since Quit: 0 * Ordering provider and NPI: AARON MOURA [id number] * Interpreting radiologist and NPI: Stephan [id number] Exam acquisition parameters: * Exam Date: 10/23/2024 1:17 PM * Site: [facility] * * CT System Engineering Technician: Siemens * CT System Model: Sensation * Tube Current-Time (mA-sec): 40 * Peak Voltage (kV): 120V * Scan Time (sec): 9.52 * Scan Volume (z-length, cm): -25.00 * Pitch: 0.75 * Slice Thickness (mm): 1.5 * CT Dose-Length Product: 104 mGy*cm * CT Dose Index: 3.01mGy * CT Dose Reduction Method: Automated exposure control(AEC) and iterative recon COMPARISON: 12/29/2022. RESULT: Are nodules present? Yes, 1-5 nodules New patchy peribronchial nodular opacities in the left upper lobe (5:30-45), likely inflammatory/infectious in etiology. Additional consolidative opacities in the medial right lower lobe, likely atelectasis. Other lung nodule comments: None Other findings: Persistent elevation of the left hemidiaphragm with adjacent linear atelectasis in the lingula and left lower lobe. The central airways are patent without endobronchial lesion. The imaged thyroid gland is unremarkable. No thoracic lymphadenopathy. Atherosclerotic calcifications of the thoracic aorta. The thoracic aorta and main pulmonary artery are normal in caliber. The cardiac chambers are normal in size. No distinct coronary artery calcifications. No pericardial effusion or pericardial thickening. Degenerative changes of the thoracic spine. The soft tissues of the chest wall are unremarkable. The imaged upper abdomen discloses no acute abnormality. Emphysema: None. Coronary Artery Calcifications: None. Localizer images: No additional findings. DIVISION OF RADIOLOGY [facility] * * *Final Report* * * DATE OF EXAM: Oct 23 2024 1:17PM [facility] 0562 - CT LUNG SCREEN [facility] / PROCEDURE REASON: multiple diagnoses * * * * Physician Interpretation * * * * EXAMINATION: CHEST CT WITHOUT CONTRAST (LOW-DOSE CT LUNG CANCER SCREENING PROTOCOL) CLINICAL HISTORY: Lung cancer LDCT screening ? absence of signs or symptoms of lung cancer. Nicotine dependence (cigarettes). Subsequent (annual) Technique: Spiral CT acquisition of the chest from the thoracic inlet to the upper abdomen without contrast. MQ: CTLCS_6 Patient characteristics: * Xosg-gi-Gduab: 1965; Age at exam: 59 years * Gender: Female * Lung Disease: Asymptomatic (no signs or symptoms of lung disease) * Number of Pack Years: 86 * Current smoker (=0) or Number of Years since Quit: 0 * Ordering provider and NPI: AARON MOURA [id number] * Interpreting radiologist and NPI: Stephan [id number] Exam acquisition parameters: * Exam Date: 10/23/2024 1:17 PM * Site: [facility] * * CT System Engineering Technician: GenerationOne * CT System Model: Sensation * Tube Current-Time (mA-sec): 40 * Peak Voltage (kV): 120V * Scan Time (sec): 9.52 * Scan Volume (z-length, cm): -25.00 * Pitch: 0.75 * Slice Thickness (mm): 1.5 * CT Dose-Length Product: 104 mGy*cm * CT Dose Index: 3.01mGy * CT Dose Reduction Method: Automated exposure control(AEC) and iterative recon COMPARISON: 12/29/2022. RESULT: Are nodules present? Yes, 1-5 nodules New patchy peribronchial nodular opacities in the left upper lobe (5:30-45), likely inflammatory/infectious in etiology. Additional consolidative opacities in the medial right lower lobe, likely atelectasis. Other lung nodule comments: None Other findings: Persistent elevation of the left hemidiaphragm with adjacent linear atelectasis in the lingula and left lower lobe. The central airways are patent without endobronchial lesion. The imaged thyroid gland is unremarkable. No thoracic lymphadenopathy. Atherosclerotic calcifications of the thoracic aorta. The thoracic aorta and main pulmonary artery are normal in caliber. The cardiac chambers are normal in size. No distinct coronary artery calcifications. No pericardial effusion or pericardial thickening. Degenerative changes of the thoracic spine. The soft tissues of the chest wall are unremarkable. The imaged upper abdomen discloses no acute abnormality. Emphysema: None. Coronary Artery Calcifications: None. Localizer images: No additional findings. IMPRESSION IMPRESSION: LungRADS category: 0 LungRADS modifier: None LungRADS 0 reason: n/a Recommendations: New patchy peribronchial nodular opacities in the left upper lobe, likely inflammatory/infectious in etiology. New consolidative opacities in the right lower lobe, likely atelectasis. Follow-up in 1-3 months is suggested. Other actionable findings: === Reference: [employer] [employer]. Lung CT Screening Reporting and Data System (Lung-RADS). Available at: http://www.acr.org/Quali ty-Safety/Resources/Lung RADS Tire Buffer: JIHAN Transcribe Date/Time: Oct 23 2024 3:05P Dictated by : LEANN FLORES MD This examination was interpreted and the report reviewed and electronically signed by: LEANN FLORES MD on Oct 23 2024 3:13PM EST [facility] Radiology Study observation (narrative) [facility] CT Chest for screening WO co ntrastOrdered By: [facility] Provider on 10-23-2024 [facility] CT LUNG SCREEN WO IVCONon CT LUNG SCREEN WO IVCON * * *Final Repor t* * * DATE OF EXAM: Oct 23 2024 1:17PM [facility] 0562 - CT LUNG SCREEN WO IVCON / PROCEDURE REASON: multiple diagnoses * * * * Physician Interpretation * * * * EXAMINATION: CHEST CT WITHOUT CONTRAST (LOW-DOSE CT LUNG CANCER SCREENING PROTOCOL) CLINICAL HISTORY: Lung cancer LDCT screening ? absence of signs or symptoms of lung cancer. Nicotine dependence (cigarettes). Subsequent (annual) Technique: Spiral CT acquisition of the chest from the thoracic inlet to the upper abdomen without contrast. MQ: CTLCS_6 Patient characteristics: * Wupa-vx-Mjrse: 1965; Age at exam: 59 years * Gender: Female * Lung Disease: Asymptomatic (no signs or symptoms of lung disease) * Number of Pack Years: 86 * Current smoker (=0) or Number of Years since Quit: 0 * Ordering provider and NPI: AARON MOURA [id number] * Interpreting radiologist and NPI: Stephan [id number] Exam acquisition parameters: * Exam Date: 10/23/2024 1:17 PM * Site: [facility] * * CT System Engineering Technician: Siemens * CT System Model: Sensation * Tube Current-Time (mA-sec): 40 * Peak Voltage (kV): 120V * Scan Time (sec): 9.52 * Scan Volume (z-length, cm): -25.00 * Pitch: 0.75 * Slice Thickness (mm): 1.5 * CT Dose-Length Product: 104 mGy*cm * CT Dose Index: 3.01mGy * CT Dose Reduction Method: Automated exposure control(AEC) and iterative recon COMPARISON: 12/29/2022. RESULT: Are nodules present? Yes, 1-5 nodules New patchy peribronchial nodular opacities in the left upper lobe (5:30-45), likely inflammatory/infectious in etiology. Additional consolidative opacities in the medial right lower lobe, likely atelectasis. Other lung nodule comments: None Other findings: Persistent elevation of the left hemidiaphragm with adjacent linear atelectasis in the lingula and left lower lobe. The central airways are patent without endobronchial lesion. The imaged thyroid gland is unremarkable. No thoracic lymphadenopathy. Atherosclerotic calcifications of the thoracic aorta. The thoracic aorta and main pulmonary artery are normal in caliber. The cardiac chambers are normal in size. No distinct coronary artery calcifications. No pericardial effusion or pericardial thickening. Degenerative changes of the thoracic spine. The soft tissues of the chest wall are unremarkable. The imaged upper abdomen discloses no acute abnormality. Emphysema: None. Coronary Artery Calcifications: None. Localizer images: No additional findings. IMPRESSION: LungRADS category: 0 LungRADS modifier: None LungRADS 0 reason: n/a Recommendations: New patchy peribronchial nodular opacities in the left upper lobe, likely inflammatory/infectious in etiology. New consolidative opacities in the right lower lobe, likely atelectasis. Follow-up in 1-3 months is suggested. Other actionable findings: === Reference: [employer] [place] [employer]. Lung CT Screening Reporting and Data System (Lung-RADS). Available at: http://www.acr.org/Quali ty-Safety/Resources/Lung RADS Tire Buffer: JIHAN Transcribe Date/Time: Oct 23 2024 3:05P Dictated by : LEANN FLORES MD This examination was interpreted and the report reviewed and electronically signed by: LEANN FLORES MD on Oct 23 2024 3:13PM EST [id number] Normal [facility] Hepatic function 2000 panelo n 10-23-2024 Albumin [Mass/Vol] 4.1 g/dL Normal 3.9-4.9 [facility] Comment on above: Order Comment: Speci guzman Type: BLOOD SPECIMENOrdering Facility: [facility] Address: [address] [place] [address] Performed By: #### 2 4325-3 ####[facility] [id number] [place] [address] [place]P [Catalytic activity/Vol] 73 U/L Normal 34-123 [facility] Comment on above: Order Comment: Germania hinds Type: BLOOD SPECIMENOrdering Facility: [facility] Address: [address] [place] [address] Performed By: #### 2 4325-3 ####[facility] MILLWNCLIA [id number] [place] [address] [place] [Catalytic activity/Vol] 20 U/L Normal 7-38 [facility] Comment on above: Order Comment: Germania hinds Type: BLOOD SPECIMENOrdering Facility: [facility] Address: [address] [place] [address] Performed By: #### 2 4325-3 ####[facility] [id number] [place] [address] [place] [Catalytic activity/Vol] 18 U/L Normal 13-35 [facility] Comment on above: Order Comment: Speci men Type: BLOOD SPECIMENOrdering Facility: [facility] Address: [address] [place] [address] Performed By: #### 2 4325-3 ####[facility] [id number] [place] [address] [place] Bilirubin [Mass/Vol] 0.4 mg/dL Normal 0.2-1.3 [facility] Comment on above: Order Comment: Speci men Type: BLOOD SPECIMENOrdering Facility: [facility] Address: [address] [place] [address] Performed By: #### 2 4325-3 ####[facility] [id number] [address] Bilirubin.conjugated [Mass/Vol] 0.1 mg/dL Normal <0.3 [facility] Comment on above: Order Comment: Speci men Type: BLOOD SPECIMENOrdering Facility: [facility] Address: [address] [place] [address] Performed By: #### 2 4325-3 ####[facility] [id number] [place] [address] [place] Protein [Mass/Vol] 6.9 g/dL Normal 6.3-8.0 [facility] Comment on above: Order Comment: Speci men Type: BLOOD SPECIMENOrdering Facility: [facility] Address: [address] [place] [address] Performed By: #### 2 4325-3 ####[facility] [id number] [place] [address] [place] 10-02-2024 DICKN Telephone (INTMWS) -------- FRANCIS DIEZ ([id number]) 1965 F Date Time Provider Department 10/02/24 MARILUZ HIGH During your visit today, we recorded the following information about you: Rayna Mcdermott, EVERETT 10/02/2024 12:13 PM Signed Pt called in and reports she is on the 0.25 mg dose of the Semaglutide and she was wanting to know when she would be able to go up to the next strength dose. Pt states she [facility]. Pt denies having any issues of SE with the dose she is on. Please call and advise Pt. Cheyanne Cortez APRN.DICK 10/04/2024 10:30 AM Signed When did she start this medication. Thank you Cheyanne Cortez APRN.Mariluz Marx MD 10/04/2024 10:39 AM Signed Did you lose any weight ? We can up on it now if she feels she wants to Mariluz Rosas MD, Mary, LPN 10/04/2024 11:30 AM Signed Called and spoke to patient, states has lost about 2 pounds, and is okay with increasing medication. Jimi Mercado LPN October 04, 2024 11:30 AM Mariluz High MD 10/05/2024 1:48 PM Signed Increased medication as requested Mariluz Rosas MD, Mary, LPN 10/05/2024 2:23 PM Signed Called and left message for patient to call office back for update Jimi Mercado LPN October 05, 2024 2:23 PM Gigi Ferrera, RN 10/05/2024 2:31 PM Signed Pt returned call and given provider's message below with verbalized understanding. Allergies As of Date: 10/02/2024 Noted Allergy Reaction BENADRYL (DIPHENHYDRAMINE HCL) 11/13/2014 12 - Shortness of Breath Comments: She is not sure of the reaction. Was given it in the ER years ago. PENICILLINS 09/01/2010 4 - Hives Date Reviewed: 08/10/2024 Reviewed by: Jimi Mercado LPN - Fully Assessed Reason for Visit: Medication Question [1478] Visit Diagnosis:Obesity (BMI 35.0-39.9 without comorbidity) [E66.9] Order(s):semaglutide (OZEMPIC) 0.25 mg or 0.5 mg (2 mg/3 mL) penInject 0.5 mg subcutaneously one time a week.Disp: 3 mLRfl: 5 Prescriptions as of 10/05/2024 - semaglutide (OZEMPIC) 0.25 mg or 0.5 mg (2 mg/3 mL) pen Inject 0.5 mg subcutaneously one time a week. - potassium chloride SR (MICRO-K) 10 mEq CR capsule Take 1 capsule by mouth three times a day. - buPROPion XL (WELLBUTRIN XL) 300 mg 24 hr tablet Take 1 tablet by mouth once daily. - eltaljpeqmh-cuofjdpsm-nw lanter (TRELEGY ELLIPTA) 200-62.5-25 mcg inhalation powder Inhale 1 Puff as instructed once daily. - predniSONE (DELTASONE) 10 mg tablet Take 4 daily for three days, then 3 daily for three days, then 2 daily for three days, then one daily for three days. - DULoxetine (CYMBALTA) 60 mg capsule Take 1 capsule by mouth once daily. - mirabegron (MYRBETRIQ) 25 mg Tb24 Take 1 tablet by mouth once daily. - montelukast (SINGULAIR) 10 mg tablet take 1 tablet by mouth once daily. - benzonatate (TESSALON PERLE) 100 mg capsule take 1 capsule by mouth three times daily as needed for cough - albuterol HFA (VENTOLIN HFA) 90 mcg/actuation inhaler Inhale 2 Puffs as instructed every 4 hours as needed for wheezing/shortness of breath. - traZODone (DESYREL) 100 mg tablet TAKE 3 TABLETS EVERY DAY - albuterol (PROVENTIL) 2.5 mg /3 mL (0.083 %) nebulizer solution Use 3 mL via nebulizer every 4 hours as needed for wheezing/shortness of breath. J44.9 - furosemide (LASIX) 40 mg tablet Take 1 tablet by mouth once daily. - rosuvastatin (CRESTOR) 5 mg tablet Take 1 tablet by mouth daily at bedtime. - cholecalciferol (VITAMIN D3) 1,000 unit tab tablet Take 1 tablet by mouth once daily. - cyclobenzaprine (FLEXERIL) 10 mg tablet Take 1 tablet by mouth at bedtime as needed for muscle spasm or pain. - spironolactone (ALDACTONE) 25 mg tablet Take 1 tablet by mouth once daily. - ipratropium (ATROVENT) 0.02 % nebulizer solution Use 2.5 mL via nebulizer four times a day as needed. OVER 5-15 MINUTES FOR WHEEZING OR SHORTNESS OF BREATH J44.9 - nitroglycerin sublingual (NITROQUICK) 0.4 mg SL tablet Dissolve 1 tablet under the tongue as needed. FOR CHEST PAIN. IF NO RELIEF CALL 911 - COMPOUNDED PRESCRIPTION Oxygen 2L at night and as needed - COMPOUNDED PRESCRIPTION Nebulizer machine DX: 496/143.90 Problem List As Of Date 10/02/2024 Noted Resolved COPD with chronic bronchitis (HCC) [J44.89] 07/08/2005 Essential hypertension [I10] 07/08/2005 Unspecified asthma(493.90) [J45.909] 07/08/2005 11/26/2014 HYPOPOTASSEMIA [E87.6] 07/09/2005 Major depressive disorder [F32.9] 07/09/2005 Palpitations [R00.2] 04/22/2006 10/26/2014 INSOMNIA NOS [G47.00] 05/24/2006 VENOUS INSUFFICIENCY NOS [I87.2] 05/24/2006 BRONCHIECTASIS W/O ACUTE EXACERBATN [J47.9] 10/04/2008 Impaired fasting glucose [R73.01] 12/05/2010 Cholecystitis with cholelithiasis [K80.10] 04/08/2013 10/26/2014 Tobacco use [Z72.0] 10/26/2014 Nocturnal oxygen desaturation [G47.34] 10/26/2014 Family history (more content not included)... Normal [facility] CNOVon 08-10-2024 CNOV Office Visit (INTMWS ) -------- FRANCIS DIEZ ([id number]) 1965 F Date Time Provider Department 08/10/24 1:40 PM MARILUZ HIGH [place] During your visit today, we recorded the following information about you: Pulse Blood pressure Weight Height 91/minute 132/80 93.5 kg 1.575 m Mariluz High MD 08/10/2024 5:14 PM Signed Reason for Visit Patient presents with: Follow Up: Labs Francis Diez is a 59 year old female who presents here today for Above Complaints.. Health Maintenance DTaP,Tdap,Td Vaccine(1 - Tdap) Shingrix Vaccine(1 of 2) Pneumococcal Vaccine: 50+(2 of 2 - PCV) RSV Vaccine(1 - Risk 60-74 years 1-dose series) Colorectal Cancer Screening Mammogram Screening Influenza Vaccine(1) Covid-19 Vaccine( - season) HPI This is a 59-year-old with a past medical history of bronchiectasis, heavy tobacco user in the past, essential hypertension, mixed hyperlipidemia, class II obesity, major depressive disorder, insomnia She is concerned about the weight gain that she recently had. She was on GLP1's in the past and it worked for her but, since then she has not taken the medication, as it is not covered, she would like to get back on the medication. Still smoking around 4 cigs a day, she is motivated to cut down as she cannot breathe much. HPL: Reviewed test results with patient , takes medications regularly , does not report side effects. Conscious to avoid red meats, full fat dairy and its by products. Exercising 3 to 5 times a week. Was recently on started trospium,. It worked initially and now it is not working. She is on the duloxetine and would like to continue it. Reviewed labs with her, lipids, hba1c and bmp are normal or not concerning. No problem-specific Assessment AND Plan notes found for this encounter. PAST MEDICAL HISTORY Diagnosis Date Allergies ASTHMA UNSPECIFIED 07/08/2005 Bronchiectasis (HCC) CHRONIC AIRWAY OBSTRUCTION NEC 07/08/2005 Depression Diaphragm dysfunction HYPERTENSION NOS 07/08/2005 PAST SURGICAL HISTORY Procedure Laterality Date LAPS SURG CHOLECYSTECTOMY W/CHOLANGIOGRAPHY 04-21-[address] [facility] [address] Guillen RMVL LUNG OTHER THAN PNEUMONECTOMY 1 LOBE LOBECT 1992 Left - bronchiectasis TOTAL ABDOMINAL HYSTERECT W/WO RMVL TUBE OVARY Hysterectomy, CARMENCITA FAMILY HISTORY Problem Relation Age of Onset other (Lung cancer [Other]) Mother Asthma Mother Diabetes Father Dialysis Father other (Myocardial infarction) Sister Colon Cancer Sister Colon Cancer Brother 2 brothers. other (Myocardial infarction) Brother Social History Tobacco Use Smoking status: Every Day Current packs/day: 0.25 Average packs/day: 0.3 packs/day for 42.5 years (10.6 ttl pk-yrs) Types: Cigarettes Start date: 1982 Smokeless tobacco: Never Tobacco comments: Did not smoke during pregnancies. Former 2 ppd smoker. Less than 1/2ppd 08/08/2024 Vaping Use Vaping status: Never Used Substance Use Topics Alcohol use: No Drug use: No Past medical history, appointments, medications, allergies reviewed. Pertinent Lab/Diagnostic Studies are reviewed and discussed today Current Outpatient Medications: qzvupebqrku-xwqkxyqky-vg lanter (TRELEGY ELLIPTA) 200-62.5-25 mcg inhalation powder predniSONE (DELTASONE) 10 mg tablet DULoxetine (CYMBALTA) 60 mg capsule Phentermine HCl (ADIPEX-P) 37.5 mg tablet mirabegron (MYRBETRIQ) 25 mg Tb24 montelukast (SINGULAIR) 10 mg tablet benzonatate (TESSALON PERLE) 100 mg capsule albuterol HFA (VENTOLIN HFA) 90 mcg/actuation inhaler traZODone (DESYREL) 100 mg tablet albuterol (PROVENTIL) 2.5 mg /3 mL (0.083 %) nebulizer solution furosemide (LASIX) 40 mg tablet rosuvastatin (CRESTOR) 5 mg tablet cholecalciferol (VITAMIN D3) 1,000 unit tab tablet cyclobenzaprine (FLEXERIL) 10 mg tablet buPROPion XL (WELLBUTRIN XL) 300 mg 24 hr tablet ipratropium (ATROVENT) 0.02 % nebulizer solution potassium chloride SR (MICRO-K) 10 mEq CR capsule nitroglycerin sublingual (NITROQUICK) 0.4 mg SL tablet COMPOUNDED PRESCRIPTION COMPOUNDED PRESCRIPTION spironolactone (ALDACTONE) 25 mg tablet Review of Systems CONSTITUTIONAL: No fevers, chills night sweats, unintended weight loss CARDIOVASCULAR: No chest pain, dyspnea, palpitations, orthopnea, PND, ankle edema. PULM: No dyspnea, unexplained cough. GI: No dysphagia/odynophagia, problematic reflux, constipation, diarrhea, changes in stool habits, hematochezia, melena. : No new urinary complaints, including dysuria, gross hematuria or pyuria. NEURO: No new balance problems, peripheral weakness/paresthesias or numbness of concern. Physical Exam BP 132/80 (BP Site: Left Arm) Pulse 91 Ht 157.5 cm (5' 2) Wt 93.5 kg (206 lb 3.2 oz) SpO2 90% BMI 37.71 kg/m? General appearance: Well appearing, alert, in no acute distress, well nourished. Skin: Skin color, texture, turgor alexandrea (more content not included)... 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 [facility] [place] Note Patient name: Francis Diez PCP: Mariluz High MD CC: Obstructive lung disease HPI: Francis Diez 59 year old female smoker with PMH significant for bronchiectasis s/p LLL lung resection in 1992, left diaphragm dysfunction, asthma with COPD, HTN, obesity. Current therapy with Trelegy Ellipta, Singulair and albuterol. Participating in lung cancer screening, last exam 12/2022. She is overdue for her chest CT. She states she has been more short of breath lately, some wheezing, no significant cough or sputum production. She has not had any upper respiratory infectious symptoms. No recent hospitalizations or ED visits. She has been using her albuterol more often. DME: [employer] Nocturnal PAST MEDICAL HISTORY Diagnosis Date Allergies ASTHMA UNSPECIFIED 07/08/2005 Bronchiectasis (HCC) CHRONIC AIRWAY OBSTRUCTION NEC 07/08/2005 Depression Diaphragm dysfunction HYPERTENSION NOS 07/08/2005 ALLERGIES Allergen Reactions Benadryl [Diphenhyd* Shortness of Breath She is not sure of the reaction. Was given it in the ER years ago. Penicillins Hives DULoxetine (CYMBALTA) 60 mg capsule Take 1 capsule by mouth once daily. Phentermine HCl (ADIPEX-P) 37.5 mg tablet Take 1 tablet by mouth once daily for 30 days. mirabegron (MYRBETRIQ) 25 mg Tb24 Take 1 tablet by mouth once daily. montelukast (SINGULAIR) 10 mg tablet take 1 tablet by mouth once daily. benzonatate (TESSALON PERLE) 100 mg capsule take 1 capsule by mouth three times daily as needed for cough albuterol HFA (VENTOLIN HFA) 90 mcg/actuation inhaler Inhale 2 Puffs as instructed every 4 hours as needed for wheezing/shortness of breath. traZODone (DESYREL) 100 mg tablet TAKE 3 TABLETS EVERY DAY (Patient taking differently: Take 300 mg by mouth daily at bedtime.) albuterol (PROVENTIL) 2.5 mg /3 mL (0.083 %) nebulizer solution Use 3 mL via nebulizer every 4 hours as needed for wheezing/shortness of breath. J44.9 furosemide (LASIX) 40 mg tablet Take 1 tablet by mouth once daily. rosuvastatin (CRESTOR) 5 mg tablet Take 1 tablet by mouth daily at bedtime. cholecalciferol (VITAMIN D3) 1,000 unit tab tablet Take 1 tablet by mouth once daily. cyclobenzaprine (FLEXERIL) 10 mg tablet Take 1 tablet by mouth at bedtime as needed for muscle spasm or pain. spironolactone (ALDACTONE) 25 mg tablet Take 1 tablet by mouth once daily. buPROPion XL (WELLBUTRIN XL) 300 mg 24 hr tablet Take 1 tablet by mouth once daily. ipratropium (ATROVENT) 0.02 % nebulizer solution Use 2.5 mL via nebulizer four times a day as needed. OVER 5-15 MINUTES FOR WHEEZING OR SHORTNESS OF BREATH J44.9 potassium chloride SR (MICRO-K) 10 mEq CR capsule TAKE 1 CAPSULE BY MOUTH 3 TIMES DAILY nitroglycerin sublingual (NITROQUICK) 0.4 mg SL tablet Dissolve 1 tablet under the tongue as needed. FOR CHEST PAIN. IF NO RELIEF CALL 911 COMPOUNDED PRESCRIPTION Oxygen 2L at night and as needed COMPOUNDED PRESCRIPTION Nebulizer machine DX: 496/143.90 owaluzzdklr-juwilhumx-ch lanter (TRELEGY ELLIPTA) 200-62.5-25 mcg inhalation powder Inhale 1 Puff as instructed once daily. predniSONE (DELTASONE) 10 mg tablet Take 4 daily for three days, then 3 daily for three days, then 2 daily for three days, then one daily for three days. Social History Tobacco Use Smoking status: Every Day Current packs/day: 0.25 Average packs/day: 0.3 packs/day for 42.5 years (10.6 ttl pk-yrs) Types: Cigarettes Start date: 1982 Smokeless tobacco: Never Tobacco comments: Did not smoke during pregnancies. Former 2 ppd smoker. Less than 1/2ppd 08/08/2024 Vaping Use Vaping status: Never Used Substance Use Topics Alcohol use: No Drug use: No FAMILY HISTORY Problem Relation Age of Onset other (Lung cancer [Other]) Mother Asthma Mother Diabetes Father Dialysis Father other (Myocardial infarction) Sister Colon Cancer Sister Colon Cancer Brother 2 brothers. other (Myocardial infarction) Brother PAST SURGICAL HISTORY Procedure Laterality Date LAPS SURG CHOLECYSTECTOMY W/CHOLANGIOGRAPHY 04-21-[address] [facility] [address] Guillen RMVL LUNG OTHER THAN PNEUMONECTOMY 1 LOBE LOBECT 1992 Left - bronchiectasis TOTAL ABDOMINAL HYSTERECT W/WO RMVL TUBE OVARY Hysterectomy, CARMENCITA PMH, Social history, family history and surgical history reviewed and updated. REVIEW OF SYSTEMS: CONSTITUTIONAL: No fevers, chills, nightsweats, unintended weight loss HEENT: Denies frequent or severe heaches, nasal congestion/sinus symptoms, (more content not included)... Normal [facility] 2000 panelon 07-29-2024 Anion gap [Moles/Vol] 12 mmol/L Normal 8-15 [facility] Comment on above: Order Comment: Speci men Type: BLOOD SPECIMENOrdering Facility: [facility] Address: [address] [place] [address] Performed By: #### 2 4321-2, 74648-5 ####[facility] [id number] [place] [address] [place] Calcium [Mass/Vol] 9.8 mg/dL Normal 8.5-10.2 [facility] Comment on above: Order Comment: Speci men Type: BLOOD SPECIMENOrdering Facility: [facility] Address: [address] [place] [address] Performed By: #### 2 4321-2, 35780-2 ####[facility] [id number] [place] [address] [place] Chloride [Moles/Vol] 100 mmol/L Normal 98-107 [facility] Comment on above: Order Comment: Speci men Type: BLOOD SPECIMENOrdering Facility: [facility] Address: [address] [place] [address] Performed By: #### 2 4321-2, 92267-8 ####[facility] [id number] [place] [address] [place] CO2 [Moles/Vol] 31 mmol/L High 22-30 [facility] Comment on above: Order Comment: Speci men Type: BLOOD SPECIMENOrdering Facility: [facility] Address: [address] [place] [address] Performed By: #### 2 4321-2, 29625-0 ####[facility] [id number] [place] [id number] [place] Creatinine [Mass/Vol] 1.02 mg/dL High 0.58-0.96 [facility] Comment on above: Order Comment: Germania hinds Type: BLOOD SPECIMENOrdering Facility: [facility] Address: [address] [place] [address] Performed By: #### 2 4321-2, 18840-7 ####[facility] [id number] [place] [address] [place] Creatinine and Glomerular filtration rate.predicted panel (S/P/Bld) 63 mL/min/1.73m??? Normal >=60 [facility] Comment on above: Order Comment: Germania hinds Type: BLOOD SPECIMENOrdering Facility: [facility] Address: [address] [place] [address] Result Comment: Vilma mated Glomerular Filtration Rate (eGFR) is calculated using the 2020 CKD-EPI creatinine equation. This equation utilizes serum creatinine, sex, and age as parameters. The creatinine assay has traceable calibration to isotope dilution-mass spectrometry. Refer to KDIGO guidelines for clinical interpretation. In patients with unstable renal function, e.g. those with acute kidney injury, the eGFR may not accurately reflect actual GFR. Performed By: #### 2 4321-2, 15384-2 ####[facility] [id number] [place] [address] [place] Glucose [Mass/Vol] 91 mg/dL Normal 74-99 [facility] Comment on above: Order Comment: Germania hinds Type: BLOOD SPECIMENOrdering Facility: [facility] Address: [address] [place] [address] Result Comment: The [place] Diabetes Association (ADA) provides guidance for cutoff values for fasting glucose and random glucose. The ADA defines fasting as no caloric intake for at least 8 hours. Fasting plasma glucose results between 100 to 125 mg/dL indicate increased risk for diabetes (prediabetes). Fasting plasma glucose results greater than or equal to 126 mg/dL meet the criteria for diagnosis of diabetes. In the absence of unequivocal hyperglycemia, results should be confirmed by repeat testing. In a patient with classic symptoms of hyperglycemia or hyperglycemic crisis, random plasma glucose results greater than or equal to 200 mg/dL meet the criteria for diagnosis of diabetes. Reference: Standards of Medical Care in Diabetes 2016, [place] Diabetes Association. Diabetes Care. 2016.39(Suppl 1). Performed By: #### 2 4321-2, 33860-9 ####[facility] [id number] [place] [address] [place] Potassium [Moles/Vol] 4.1 mmol/L Normal 3.7-5.1 [facility] Comment on above: Order Comment: Speci men Type: BLOOD SPECIMENOrdering Facility: [facility] Address: [address] [place] [address] Performed By: #### 2 4321-2, 82769-4 ####[facility] LABIA [id number] [place] [address] [place] Sodium [Moles/Vol] 143 mmol/L Normal 136-144 [facility] Comment on above: Order Comment: Speci men Type: BLOOD SPECIMENOrdering Facility: [facility] Address: [address] [place] [address] Performed By: #### 2 4321-2, 59762-8 ####[facility] LABIA [id number] [place] [address] [place] Urea nitrogen [Mass/Vol] 13 mg/dL Normal 7-21 [facility] Comment on above: Order Comment: Speci men Type: BLOOD SPECIMENOrdering Facility: [facility] Address: [address] [place] [address] Performed By: #### 2 4321-2, 97227-2 ####[facility]IA [id number] [place] [address] [place] HbA1c (Bld)on 07-29-2024 Average glucose Estimated from glycated hemoglobin (Bld) [Mass/Vol] 105 mg/dL Normal [facility] Comment on above: Order Comment: Speci men Type: BLOOD SPECIMEN [facility] Address: [address] [place] [address] Result Comment: eAG: (Estimated average glucose) is a calculated value from HgbA1c and is financial service representative of the average blood glucose level in the last 2-3 month period. Performed By: #### 5 5454-3 #### [facility] CLIA [id number] [address] [place] [address] [place] HbA1c (Bld) [Mass fraction] 5.3 % Normal 4.3-5.6 [facility] Comment on above: Order Comment: Germania hinds Type: BLOOD SPECIMEN [facility] Address: [address] [place] [address] Result Comment: [place] Diabetes Association guidelines indicate that patients with HgbA1c in the range 5.7-6.4% are at increased risk for development of diabetes, and intervention by lifestyle modification may be beneficial. HgbA1c greater or equal to 6.5% is considered diagnostic of diabetes. Performed By: #### 5 5454-3 #### [facility] CLIA [id number] [address] [place] [address] [place] Lipid 1996 panelon 4 Cholesterol [Mass/Vol] 141 mg/dL Normal <200 [facility] Comment on above: Order Comment: Germania hinds Type: BLOOD SPECIMENOrdering Facility: [facility] Address: [address] [place] [address] Result Comment: <200 mg/dL, Desirable 200-239 mg/dL, Borderline high >239 mg/dL, High Performed By: #### 2 4321-2, 59765-6 ####[facility] [id number] [place] [address] [place] Cholesterol in HDL [Mass/Vol] 70 mg/dL Normal >39 [facility] Comment on above: Order Comment: Germania hinds Type: BLOOD SPECIMENOrdering Facility: [facility] Address: [address] [place] [address] Result Comment: 40-5 9 mg/dL, Acceptable >59 mg/dL, High: Negative risk factor for coronary heart disease <40 mg/dL, Low: Positive risk factor for coronary heart disease Performed By: #### 2 4321-2, 75125-9 ####[facility] [id number] [place] [address] [place] Cholesterol in LDL [Mass/Vol] 52 mg/dL Normal <100 [facility] Comment on above: Order Comment: Speci men Type: BLOOD SPECIMENOrdering Facility: [facility] Address: [address] [place] [address] Result Comment: <100 mg/dL, Optimal 100-129 mg/dL, Near optimal/above optimal 130-159 mg/dL, Borderline high 160-189 mg/dL, High >189 mg/dL, Very high Secondary prevention optimal LDL Cholesterol levels are recommended to be < 70 mg/dL Performed By: #### 2 4321-2, 63171-1 ####[facility] [id number] [address] [place] [facility] Cholesterol in LDL/Cholesterol in HDL [Mass ratio] 0.74 {ratio} Normal <2.54 [facility] Comment on above: Order Comment: Speci men Type: BLOOD SPECIMENOrdering Facility: [facility] Address: [address] [place] [address] Result Comment: Lucy bello: 1. National Cholesterol Education Program ATP III Guideline At-A-Glance Quick Desk Reference: National Heart, Lung, and Blood [place]. National Institutes of Health. 2001: NIH Publication No. 01-3305. 2. An International Atherosclerosis Society position paper: global recommendations for the management of dyslipidemia: executive summary, Atherosclerosis. 2014: 232(2):410-413. Performed By: #### 2 4321-2, 99059-7 ####[facility] [id number] [place] [address] [place] Cholesterol in VLDL [Mass/Vol] 19 mg/dL Normal <30 [facility] Comment on above: Order Comment: Speci men Type: BLOOD SPECIMENOrdering Facility: [facility] [facility] Address: [address] [place] [address] Performed By: #### 2 4321-2, 49520-5 ####[facility] LABCLIA [id number] [place] [address] [place] Cholesterol non HDL [Mass/Vol] 71 mg/dL Normal <130 [facility] Comment on above: Order Comment: Speci men Type: BLOOD SPECIMENOrdering Facility: [facility] Address: [address] [place] [address] Result Comment: <130 mg/dL, Optimal 130-159 mg/dL, Near optimal/above optimal 160-189 mg/dL, Borderline high 190-219 mg/dL, High >219 mg/dL, Very high Secondary prevention optimal non HDL Cholesterol levels are recommended to be <100 mg/dL Performed By: #### 2 4321-2, 33191-2 ####[facility] [id number] [place] [address] [place] Cholesterol.total/Alisha sterol in HDL [Mass ratio] 2.01 {ratio} Normal <5.10 [facility] Comment on above: Order Comment: Speci men Type: BLOOD SPECIMENOrdering Facility: [facility] Address: [address] [place] [address] Performed By: #### 2 4321-2, 12249-8 ####[facility] [id number] [place] [address] [place] FASTING TIME 12 hrs Normal [facility] Comment on above: Order Comment: Speci men Type: BLOOD SPECIMENOrdering Facility: [facility] Address: [address] [place] [id number] Performed By: #### 2 4321-2, 24354-2 ####[facility] [id number] [place] [address] [place] Triglyceride [Mass/Vol] 96 mg/dL Normal <150 [facility] Comment on above: Order Comment: Speci men Type: BLOOD SPECIMENOrdering Facility: [facility] Address: [address] [place] [id number] Result Comment: <150 mg/dL, Normal 150-199 mg/dL, Borderline high 200-499 mg/dL, High >499 mg/dL, Very high Performed By: #### 2 4321-2, 70585-2 ####[facility] [id number] [place] [address] [facility] OF [facility]UNIOR PAIN PANEL, UR QUANTon 07-29 3-Pphfwaudeb-9,5-Dimeth yl-3,3-Diphenylpyrrolid ine (EDDP) Confirm (U) [Mass/Vol] <6 Normal <6 [facility] Comment on above: Order Comment: Speci men Type: URINE SPECIMENOrdering Facility: [facility] Address: [address] [place] [address] Result Comment: EDDP is a metabolite of methadone. Performed By: #### L [id number] ####[facility] [id number] [address] OF [facility] 6-Monoacetylmorphine (6-ZACKERY) (U) [Mass/Vol] <5 Normal <5 [facility] Comment on above: Order Comment: Speci men Type: URINE SPECIMENOrdering Facility: [facility] Address: [address] [place] [address] Result Comment: 6-MA M (6-monoacetylmorphine, also known as 6-acetylmorphine) is a unique metabolite of heroin. Presence of 6-ZACKERY indicates use of heroin. 6-ZACKERY is further metabolized to morphine and absence of 6-ZACKERY does not rule out the use of heroin. Performed By: #### L [id number] ####[facility] LABIA [id number] [place] [address] [place] Amphetamine Confirm (U) [Mass/Vol] <5 Normal <5 [facility] Comment on above: Order Comment: Speci men Type: URINE SPECIMENOrdering Facility: [facility] Address: [address] [place] [address] Performed By: #### L [id number] ####[facility] LABIA [id number] [place] [address] [place] Benzoylecgonine Confirm (U) [Mass/Vol] <24 Normal <24 [facility] Comment on above: Order Comment: Speci men Type: URINE SPECIMENOrdering Facility: [facility] Address: [address] [place] [address] Result Comment: Juan oylecgonine is a metabolite of cocaine. Performed By: #### L [id number] ####[facility] LABIA [id number] [place] [address] [place] Buprenorphine (U) [Mass/Vol] <20 Normal <20 [facility] Comment on above: Order Comment: Speci men Type: URINE SPECIMENOrdering Facility: [facility] Address: [address] [place] [address] Performed By: #### L [id number] ####[facility] [id number] [place] [address] [place] Cannabinoids Confirm (U) [Mass/Vol] <16 Normal <16 [facility] Comment on above: Order Comment: Speci men Type: URINE SPECIMENOrdering Facility: [facility] Address: [address] [place] [address] Result Comment: Tetr ahydrocannabinol carboxylic acid (THCA) is a metabolite of mleek-7-umoajcvlskmzoydowsit which is the main active component of marijuana. Performed By: #### L [id number] ####[facility] LABIA [id number] [place] [address] [place] Codeine Confirm (U) [Mass/Vol] <11 Normal <11 [facility] Comment on above: Order Comment: Speci men Type: URINE SPECIMENOrdering Facility: [facility] Address: [address] [place] [address] Performed By: #### L [id number] ####[facility] LABIA [id number] [address] [place] Dihydrocodeine Confirm (U) [Mass/Vol] <5 Normal <5 [facility] Comment on above: Order Comment: Speci men Type: URINE SPECIMENOrdering Facility: [facility] Address: [address] [place] [address] Performed By: #### L [id number] ####[facility] LABIA [id number] [place] [address] [place] fentaNYL Confirm (U) [Mass/Vol] <6 Normal <6 [facility] Comment on above: Order Comment: Speci men Type: URINE SPECIMENOrdering Facility: [facility] Address: [address] [place] [address] Performed By: #### L [id number] ####[facility] [id number] [address] [place] HYDROcodone Confirm (U) [Mass/Vol] <8 Normal <8 [facility] Comment on above: Order Comment: Speci men Type: URINE SPECIMENOrdering Facility: [facility] Address: [address] [place] [address] Result Comment: Hydr ocodone is a metabolite of dihydrocodeine. Performed By: #### L [id number] ####[facility] LABIA [id number] [place] [address] [place] HYDROmorphone Confirm (U) [Mass/Vol] <5 Normal <5 [facility] Comment on above: Order Comment: Speci men Type: URINE SPECIMENOrdering Facility: [facility] Address: [address] [place] [address] Result Comment: Hydr omorphone is a metabolite of hydrocodone. Performed By: #### L [id number] ####[facility] LABIA [id number] [place] [address] [place] Methadone Confirm (U) [Mass/Vol] <16 Normal <16 [facility] Comment on above: Order Comment: Speci men Type: URINE SPECIMENOrdering Facility: [facility] Address: [address] [place] [address] Performed By: #### L [id number] ####[facility] [id number] [place] [address] [place] Methamphetamine Confirm (U) [Mass/Vol] <8 Normal <8 [facility] Comment on above: Order Comment: Speci men Type: URINE SPECIMENOrdering Facility: [facility] Address: [address] [place] [address] Performed By: #### L [id number] ####[facility] [id number] [address] STATES OF [facility] Morphine Confirm (U) [Mass/Vol] <10 Normal <10 [facility] Comment on above: Order Comment: Speci men Type: URINE SPECIMENOrdering Facility: [facility] Address: [address] [place] [address] Result Comment: Morp efraín is a metabolite of codeine and heroin. Performed By: #### L [id number] ####[facility] [id number] [address] [place] Norbuprenorphine (U) [Mass/Vol] <20 Normal <20 [facility] Comment on above: Order Comment: Speci men Type: URINE SPECIMENOrdering Facility: [facility] Address: [address] [place] [address] Result Comment: Norb uprenorphine is the primary active metabolite of buprenorphine. Performed By: #### L [id number] ####[facility] [id number] [address] [place] Norfentanyl Confirm (U) [Mass/Vol] <6 Normal <6 [facility] Comment on above: Order Comment: Speci men Type: URINE SPECIMENOrdering Facility: [facility] Address: [address] [place] [address] Result Comment: Norf entanyl is a metabolite of fentanyl. Performed By: #### L [id number] ####[facility] LABIA [id number] [place] [address] [place] Nortramadol (U) [Mass/Vol] <20 Normal <20 [facility] Comment on above: Order Comment: Speci men Type: URINE SPECIMENOrdering Facility: [facility] Address: [address] [place] [address] Result Comment: Desm ethyltramadol is a metabolite of tramadol. Performed By: #### L [id number] ####[facility] [id number] [place] [address] [place] NOTE,UR PAIN DAVIS Normal [facility] Comment on above: Order Comment: Speci men Type: URINE SPECIMENOrdering Facility: [facility] Address: [address] [place] [address] Result Comment: This test is for medical use only. This test was developed, and its performance characteristics determined by the [facility] Department of Pathology and Laboratory Medicine. It has not been cleared or approved by the FDA. The [facility] Department of Pathology and Laboratory Medicine is regulated under CLIA as qualified to perform high-complexity testing. This test is used for clinical purposes. It should not be regarded as investigational or for research. Performed By: #### L [id number] ####[facility] LABIA [id number] [place] [address] [place] oxyCODONE Confirm (U) [Mass/Vol] <10 Normal <10 [facility] Comment on above: Order Comment: Speci men Type: URINE SPECIMENOrdering Facility: [facility] Address: [address] [place] [address] Performed By: #### L [id number] ####[facility] LABIA [id number] [place] [address] [place] oxyMORphone Confirm (U) [Mass/Vol] <5 Normal <5 [facility] Comment on above: Order Comment: Speci men Type: URINE SPECIMENOrdering Facility: [facility] Address: [address] [place] [address] Result Comment: Oxym orphone is a metabolite of oxycodone. Performed By: #### L [id number] ####[facility]CL[facility] [id number] [place] [address] [place] traMADol Confirm (U) [Mass/Vol] <25 Normal <25 [facility] Comment on above: Order Comment: Speci men Type: URINE SPECIMENOrdering Facility: [facility] Address: [address] [place] [address] Performed By: #### L [id number] ####[facility] LABIA [id number] [place] [address] [place] SPECIMEN VALIDITY, URINEon 1 09-29-2023 CHROMATE,URINE <10 Normal <50 [facility] Comment on above: Order Comment: Speci men Type: URINE SPECIMENOrdering Facility: [facility] Address: [address] [place] [address] Performed By: #### L [id number] ####[facility] LABIA [id number] [place] [address] [place] CREATININE,URINE 120.0 mg/dL Normal 20.0-300.0 [facility] Comment on above: Order Comment: Speci men Type: URINE SPECIMENOrdering Facility: [facility] Address: [address] [place] [address] Performed By: #### L [id number] ####[facility] LABIA [id number] [place] [address] [place] NITRITES,URINE <50 Normal <500 [facility] Comment on above: Order Comment: Speci men Type: URINE SPECIMENOrdering Facility: [facility] Address: [address] [place] [address] Performed By: #### L [id number] ####[facility]CL[facility] [id number] [place] [address] [place] OXIDANTS,URINE 52 mg/L Normal <200 [facility] Comment on above: Order Comment: Speci men Type: URINE SPECIMENOrdering Facility: [facility] Address: [address] [place] [address] Performed By: #### L [id number] ####[facility]CL[facility] [id number] [place] [address] [place] pH (U) 6.1 [pH] Normal 4.5-8.0 [facility] Comment on above: Order Comment: Speci men Type: URINE SPECIMENOrdering Facility: [facility] Address: [address] [place] [address] Performed By: #### L [id number] ####[facility] LABIA [id number] [place] [address] [place] SPEC GRAVITY,UR 1.022 Normal 1.003-1.035 [facility] Comment on above: Order Comment: Speci men Type: URINE SPECIMENOrdering Facility: [facility] Address: [address] [place] [address] Performed By: #### L [id number] ####[facility] LABIA [id number] [place] [address] [place] SPECIMEN VALIDITY QUALITY Specimen quality results within acceptable limits Normal [facility] Comment on above: Order Comment: Speci men Type: URINE SPECIMENOrdering Facility: [facility] Address: [address] [place] [address] Performed By: #### L [id number] ####[facility] LABIA [id number] [place] [address] [place] TOXICOLOGY SCREEN, ROUTINE U RINEon 07-29-2024 Amphetamines Confirm (U) [Mass/Vol] Negative Normal Negative [facility] Comment on above: Order Comment: Speci men Type: URINE SPECIMENOrdering Facility: [facility] Address: [address] [place] [address] Result Comment: Cuto ff threshold at 1000 ng/mL. Performed By: #### U TOX2 ####[facility]CL[facility] [id number] [place] [address] [place] BARBITURATES, URINE Negative Normal Negative [facility] Comment on above: Order Comment: Speci men Type: URINE SPECIMENOrdering Facility: [facility] Address: [address] [place] [address] Result Comment: Cuto ff threshold at 200 ng/mL. Performed By: #### U TOX2 ####[facility] LABIA [id number] [place] [address] [place] BENZODIAZEPINES, UR Positive Abnormal Negative [facility] Comment on above: Order Comment: Speci men Type: URINE SPECIMENOrdering Facility: [facility] Address: [address] [place] [address] Result Comment: Cuto ff threshold at 200 ng/mL. Performed By: #### U TOX2 ####[facility] LABIA [id number] [place] [address] [place] Cannabinoids Screen Ql (U) Negative Normal Negative [facility] Comment on above: Order Comment: Speci men Type: URINE SPECIMENOrdering Facility: [facility] Address: [address] [place] [address] Result Comment: Cuto ff threshold at 50 ng/mL. Performed By: #### U TOX2 ####[facility]CL[facility] [id number] [place] [address] [place] Cocaine Ql (U) Negative Normal Negative [facility] Comment on above: Order Comment: Speci men Type: URINE SPECIMENOrdering Facility: [facility] Address: [address] [place] [address] Result Comment: Cuto ff threshold at 300 ng/mL. Performed By: #### U TOX2 ####[facility]CLIA [id number] [place] [address] [place] Ethanol (U) [Mass/Vol] <11 Normal <11 [facility] Comment on above: Order Comment: Speci men Type: URINE SPECIMENOrdering Facility: [facility] Address: [address] [place] [address] Performed By: #### U TOX2 ####[facility]CL[facility] [id number] [place] [address] [place] Opiates Screen Ql (U) Negative Normal Negative [facility] Comment on above: Order Comment: Speci men Type: URINE SPECIMENOrdering Facility: [facility] Address: [address] [place] [address] Result Comment: Cuto ff threshold at 300 ng/mL. Performed By: #### U TOX2 ####[facility] LABIA [id number] [place] [address] [place] oxyCODONE cutoff Screen (U) [Mass/Vol] Negative Normal Negative [facility] Comment on above: Order Comment: Speci men Type: URINE SPECIMENOrdering Facility: [facility] Address: [address] [place] [address] Result Comment: Cuto ff threshold at 100 ng/mL. Performed By: #### U TOX2 ####[facility] LABIA [id number] [place] [address] [place] Phencyclidine Ql (U) Negative Normal Negative [facility] Comment on above: Order Comment: Speci men Type: URINE SPECIMENOrdering Facility: [facility] Address: [address] [place] [address] Result Comment: Cuto ff threshold at 25 ng/mL. Performed By: #### U TOX2 ####[facility] LABIA [id number] [place] [address] [place] Bacteria identified Cx Nom ( U)Ordered By: Yasmany Vicente on 07-14-2024 Interpretation and review of laboratory results Abnormal [facility] URINE CULTUREOrdered By: Rashel Vicente on 07-14-2024 Bacteria identified Cx Nom (U) 10,000 -<50,000 CFU/ml Mixed microbiota Abnormal [facility] Comment on above: No further workup. M ixed microbiota can be due to urine contamination with skin bacteria at time of collection or presence of a long-term urinary catheter. If a new culture is needed, please consider re-education of the patient on proper midstream co llection technique or straight catheterization for urine collection. Bacteria Ur Culton Bacteria identified Cx Nom (U) ORGANISM ID: 1 10,000 -<50,000 CFU/ml Mixed microbiota No further workup. Mixed microbiota can be due to???urine???contaminati on with skin bacteria at time of collection or presence of a long-term urinary catheter. If a new culture is needed, please consider re-education of the patient on proper midstream collection technique or straight catheterization for???urine???collection . Normal [facility] Comment on above: Performed By: #### 6 30-4 ####[facility] LABCL[facility] [id number] [address] [facility]24 GAURANG Telephone (MICHELL) -------- FRANCIS DIEZ ([id number]) 1965 F Date Time Provider Department 07/13/24 KADI RIZZO During your visit today, we recorded the following information about you: Kadi Rizzo APRN.CNP 07/13/2024 8:03 AM Signed On 07/11 patient had UA and order for reflex to culture. Doesn't look a culture was run? Do we know why? And can this still be done? Kadi Rizzo APRN.DICK Yolanda AlmanzarCARIE 07/13/2024 2:28 PM Addendum urine culture is in process Sg Clemons PA-C 07/17/2024 7:37 AM Signed Please let patient know that her culture did not show a urine infection, possible contamination with collection. Advise that that she follow up if symptoms are not improving. APARNA Mahoney Kathryn, MA 07/17/2024 2:24 PM Signed Pt notified of results via [facility]. Ariane [place] Ma Allergies As of Date: 07/13/2024 Noted Allergy Reaction BENADRYL (DIPHENHYDRAMINE HCL) 11/13/2014 12 - Shortness of Breath Comments: She is not sure of the reaction. Was given it in the ER years ago. PENICILLINS 09/01/2010 4 - Hives Date Reviewed: 07/11/2024 Reviewed by: Alla Mariee LPN - Fully Assessed Reason for Visit: Results [95] Orders [681] Prescriptions as of 07/17/2024 - nitrofurantoin monohydrate and macrocrystal (MACROBID) 100 mg capsule Take 1 capsule by mouth two times a day with meals for 5 days. - mirabegron (MYRBETRIQ) 25 mg Tb24 Take 1 tablet by mouth once daily. - tirzepatide (MOUNJARO) 2.5 mg/0.5 mL pen injector Inject 2.5 mg subcutaneously one time a week. - DULoxetine (CYMBALTA) 30 mg capsule Take 2 capsules by mouth once daily. - montelukast (SINGULAIR) 10 mg tablet take 1 tablet by mouth once daily. - benzonatate (TESSALON PERLE) 100 mg capsule take 1 capsule by mouth three times daily as needed for cough - albuterol HFA (VENTOLIN HFA) 90 mcg/actuation inhaler Inhale 2 Puffs as instructed every 4 hours as needed for wheezing/shortness of breath. - traZODone (DESYREL) 100 mg tablet TAKE 3 TABLETS EVERY DAY - albuterol (PROVENTIL) 2.5 mg /3 mL (0.083 %) nebulizer solution Use 3 mL via nebulizer every 4 hours as needed for wheezing/shortness of breath. J44.9 - furosemide (LASIX) 40 mg tablet Take 1 tablet by mouth once daily. - rosuvastatin (CRESTOR) 5 mg tablet Take 1 tablet by mouth daily at bedtime. - cholecalciferol (VITAMIN D3) 1,000 unit tab tablet Take 1 tablet by mouth once daily. - zvjnyiwsdsm-wnlxkylip-cj lanter (TRELEGY ELLIPTA) 100-62.5-25 mcg inhalation powder Inhale 1 Puff as instructed once daily. - cyclobenzaprine (FLEXERIL) 10 mg tablet Take 1 tablet by mouth at bedtime as needed for muscle spasm or pain. - spironolactone (ALDACTONE) 25 mg tablet Take 1 tablet by mouth once daily. - buPROPion XL (WELLBUTRIN XL) 300 mg 24 hr tablet Take 1 tablet by mouth once daily. - ipratropium (ATROVENT) 0.02 % nebulizer solution Use 2.5 mL via nebulizer four times a day as needed. OVER 5-15 MINUTES FOR WHEEZING OR SHORTNESS OF BREATH J44.9 - potassium chloride SR (MICRO-K) 10 mEq CR capsule TAKE 1 CAPSULE BY MOUTH 3 TIMES DAILY - nitroglycerin sublingual (NITROQUICK) 0.4 mg SL tablet Dissolve 1 tablet under the tongue as needed. FOR CHEST PAIN. IF NO RELIEF CALL 911 - COMPOUNDED PRESCRIPTION Oxygen 2L at night and as needed - COMPOUNDED PRESCRIPTION Nebulizer machine DX: 496/143.90 Problem List As Of Date 07/13/2024 Noted Resolved COPD with chronic bronchitis (HCC) [J44.89] 07/08/2005 Essential hypertension [I10] 07/08/2005 Unspecified asthma(493.90) [J45.909] 07/08/2005 11/26/2014 HYPOPOTASSEMIA [E87.6] 07/09/2005 Major depressive disorder [F32.9] 07/09/2005 Palpitations [R00.2] 04/22/2006 10/26/2014 INSOMNIA NOS [G47.00] 05/24/2006 VENOUS INSUFFICIENCY NOS [I87.2] 05/24/2006 BRONCHIECTASIS W/O ACUTE EXACERBATN [J47.9] 10/04/2008 Impaired fasting glucose [R73.01] 12/05/2010 Cholecystitis with cholelithiasis [K80.10] 04/08/2013 10/26/2014 Tobacco use [Z72.0] 10/26/2014 Nocturnal oxygen desaturation [G47.34] 10/26/2014 Family history of colon cancer [Z80.0] 11/09/2014 Primary insomnia [F51.01] 11/26/2015 Anxiety [F41.9] 02/10/2018 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 Chest pain [R07.9] 12/01/2021 Mixed hyperlipidemia [E78.2] 09/20/2023 Class 2 severe obesity due to excess calories w*09/24/2023 Obesity, Class I, BMI 30-34.9 [E66.811] 10/19/2023 Encounter Status:Closed by [facility]A [facility] CNPN Tele[facility] (INTMWS) -------- FRANCIS DIEZ ([id number]) 1965 F Date Time Provider Department 07/12/24 MARILUZ HIGH INTMWS During your visit today, we recorded the following information about you: Louisa Sumner RN 07/12/2024 4:34 PM Signed Patient calls and is asking about result for the urine testing that was done yesterday. Please review and advise, EVERETT Rachel Bernadette, PA-C 07/13/2024 11:43 AM Signed Please let patient know that her urine did show positive for possible infection. Unfortunately it do no reflex for a culture. I would ask if the patient could please stop by the lab to give another specimen and I will send an antibiotic to the pharmacy she can start in the meantime while we wait for the culture results. Please hold on starting until she is able to give a specimen to the lab today. Unfortunately, her insurance does not cover Victoza, Mounjaro or any others in that class for weight loss. Sg Clemons PA-C 07/13/2024 Louisa Sumner RN 07/13/2024 11:55 AM Signed Patient notified of results and provider's instructions. Patient verbalizes understanding. Please place order for antibiotics. Patient is also asking about medication for incontinence. Pharmacy is [facility] Patient states that she had spoke with Esequiel from [facility] who had told her that medication Mounjaro would be approved all provider would have to do is place order. EVERETT Rachel Bernadette, PA-C 07/13/2024 12:38 PM Signed Please provide contact information for Esequiel, and check to see if there is something different that needs to be done to approve medication. Can start myrbetriq 1 tab once daily. Keflex sent to the pharmacy for possible UTI while awaiting Urine Culture. Seek care in ED for fever >100, severe back/abdominal pain, vomiting. The following approved medication requests have been transmitted electronically. Requested Prescriptions Signed Prescriptions Disp Refills mirabegron (MYRBETRIQ) 25 mg Tb24 30 tablet 2 Sig: Take 1 tablet by mouth once daily. Authorizing Provider: SG CLEMONS cephALEXin (KEFLEX) 500 mg capsule 10 capsule 0 Sig: Take 1 capsule by mouth two times a day for 5 days. Authorizing Provider: SG CLEMONS PA-C Merillat, Elizabeth, [place] 07/13/2024 1:55 PM Signed Patient was notified of results from provider and understands medication for incontinence was sent as well. Explained to patient that [facility] rep does not work with PA department. GPL-1 PA are only going to be approved for type 2 DM with A1C 6.4 or higher since this drug is not approved with FDA for soley for weight loss. Patient understands only was to be approved has to meet those medical requirements. Patient is asking if there is anything else she can do for weight loss in pill form? CARIE Holland Bernadette, PA-C 07/18/2024 2:11 PM Signed Please let patient know that I sent in a prescription for Adipex. She was on this previously. If starting, needs to have a urine tox screen completed-ordered. She can follow up at her appointment on 08/10/24 with PCP. Sg Clemons PA-C 07/18/2024 Alla Mariee LPN 07/18/2024 2:52 PM Signed Patient notified and verbalized understanding states that she will come in tomorrow to get completed. Alla Mariee LPN Allergies As of Date: 07/12/2024 Noted Allergy Reaction BENADRYL (DIPHENHYDRAMINE HCL) 11/13/2014 12 - Shortness of Breath Comments: She is not sure of the reaction. Was given it in the ER years ago. PENICILLINS 09/01/2010 4 - Hives Date Reviewed: 07/11/2024 Reviewed by: Alla Mariee LPN - Fully Assessed Reason for Visit: Results [95] Primary Visit Diagnosis:Abnormal urinalysis [R82.90] Other Visit Diagnoses:Urge incontinence [N39.41] Stress incontinence [N39.3] Obesity, Class I, BMI 30-34.9 [E66.811] Order(s):URINE CULTURE [SQURCUL] Order #: [id number] FUTURE mirabegron (MYRBETRIQ) 25 mg Cq80Adla 1 tablet by mouth once daily.Disp: 30 tabletRfl: 2 Phentermine HCl (ADIPEX-P) 37.5 mg tabletTake 1 tablet by mouth once daily for 30 days.Disp: 30 tabletRfl: 0 TOXICOLOGY SCREEN, ROUTINE URINE [SQUTOX2] Order #: [id number] FUTURE PAIN PANEL, UR QUANT [SQUQNTPP] Order #: [id number] FUTURE Prescriptions as of 07/18/2024 - Phentermine HCl (ADIPEX-P) 37.5 mg tablet Take 1 tablet by mouth once daily for 30 days. - nitrofurantoin monohydrate and macrocrystal (MACROBID) 100 mg capsule Take 1 capsule by mouth two times a day with meals for 5 days. - mirabegron (MYRBETRIQ) 25 mg Tb24 Take 1 tablet by mouth once daily. - tirzepatide (MOUNJARO) 2.5 mg/0.5 mL pen injector Inject 2.5 mg subcutaneously one time a week. - DULoxetine (CYMBALTA) 30 mg capsule Take 2 capsules by mouth once daily. - montelukast (SINGULAIR) 10 mg tablet take 1 tablet by mouth onc (more content not included)... Normal [facility] CNOVon 07-11-2024 CNOV Office Visit (FAMPWS ) -------- CHARYFRANCIS ([id number]) 1965 F Date Time Provider Department 07/11/24 11:00 AM [facility] During your visit today, we recorded the following information about you: Pulse Respiration Blood pressure Weight 86/minute 14/minute 142/88 93.9 kg Height 1.575 m Sg Clemons PA-C 07/17/2024 2:27 PM Signed 07/11/2024 Patient presents with: Follow Up: discuss medication and weight gain SUBJECTIVE: This is a 59 year old that is here today for complaint of: Weight- previously on mounjaro, which was working well per patient, but then insurance no longer covered. Same with Victoza. She is requesting that she try one of these medications again. No history of DM. She is on wellbutrin 300 mg. Last 6 Encounter Wt Readings: Date: Wt: 07/11/2024 93.9 kg (207 lb) 01/05/2024 85.7 kg (189 lb) 01/05/2024 85.7 kg (189 lb) 11/09/2023 84.8 kg (187 lb) 11/09/2023 84.8 kg (187 lb) 10/19/2023 79.8 kg (176 lb)]. Also c/o urinary incontinence, both urgency and stress. Previously on a medication, but uncertain of name which was helpful. She also notes a strong odor to urine. Denies dysuria, urinary frequency, fever/chills, vomiting, back pain, abdominal pain, hematuria. PAST MEDICAL HISTORY Diagnosis Date Allergies ASTHMA UNSPECIFIED 07/08/2005 Bronchiectasis (HCC) CHRONIC AIRWAY OBSTRUCTION NEC 07/08/2005 Depression Diaphragm dysfunction HYPERTENSION NOS 07/08/2005 ALLERGIES Benadryl [Diphenhydramine Hcl] and Penicillins MEDICATIONS Current Outpatient Medications Medication Sig DULoxetine (CYMBALTA) 30 mg capsule Take 1 capsule by mouth once daily. montelukast (SINGULAIR) 10 mg tablet take 1 tablet by mouth once daily. benzonatate (TESSALON PERLE) 100 mg capsule take 1 capsule by mouth three times daily as needed for cough albuterol HFA (VENTOLIN HFA) 90 mcg/actuation inhaler Inhale 2 Puffs as instructed every 4 hours as needed for wheezing/shortness of breath. traZODone (DESYREL) 100 mg tablet TAKE 3 TABLETS EVERY DAY albuterol (PROVENTIL) 2.5 mg /3 mL (0.083 %) nebulizer solution Use 3 mL via nebulizer every 4 hours as needed for wheezing/shortness of breath. J44.9 furosemide (LASIX) 40 mg tablet Take 1 tablet by mouth once daily. rosuvastatin (CRESTOR) 5 mg tablet Take 1 tablet by mouth daily at bedtime. cholecalciferol (VITAMIN D3) 1,000 unit tab tablet Take 1 tablet by mouth once daily. ucjffxltxxa-hylxljgfe-rx lanter (TRELEGY ELLIPTA) 100-62.5-25 mcg inhalation powder Inhale 1 Puff as instructed once daily. cyclobenzaprine (FLEXERIL) 10 mg tablet Take 1 tablet by mouth at bedtime as needed for muscle spasm or pain. spironolactone (ALDACTONE) 25 mg tablet Take 1 tablet by mouth once daily. buPROPion XL (WELLBUTRIN XL) 300 mg 24 hr tablet Take 1 tablet by mouth once daily. ipratropium (ATROVENT) 0.02 % nebulizer solution Use 2.5 mL via nebulizer four times a day as needed. OVER 5-15 MINUTES FOR WHEEZING OR SHORTNESS OF BREATH J44.9 potassium chloride SR (MICRO-K) 10 mEq CR capsule TAKE 1 CAPSULE BY MOUTH 3 TIMES DAILY nitroglycerin sublingual (NITROQUICK) 0.4 mg SL tablet Dissolve 1 tablet under the tongue as needed. FOR CHEST PAIN. IF NO RELIEF CALL 911 COMPOUNDED PRESCRIPTION Oxygen 2L at night and as needed COMPOUNDED PRESCRIPTION Nebulizer machine DX: 496/143.90 No current facility-administered medications for this visit. SOCIAL HISTORY Social History Tobacco Use Smoking status: Every Day Current packs/day: 2.00 Average packs/day: 2.0 packs/day for 42.4 years (84.8 ttl pk-yrs) Types: Cigarettes Start date: 1982 Smokeless tobacco: Never Tobacco comments: Did not smoke during pregnancies. Former 2 ppd smoker. Less than 1/2ppd 12/22/2022 Vaping Use Vaping status: Never Used Substance Use Topics Alcohol use: No Drug use: No REVIEW OF SYSTEMS See HPI OBJECTIVE: BP (P) 135/92 (BP Site: Left Arm, BP Position: Sitting, BP Cuff Size: Large Adult) Pulse 86 Resp 14 Ht 157.5 cm (5' 2) Wt 93.9 kg (207 lb) SpO2 94% BMI 37.86 kg/m? APPEARANCE Well appearing, alert, in no acute distress, well-hydrated, well nourished. EYES PERRLA, conjunctiva and sclera normal. HEART RRR with normal S1 and S2, LUNG clear to auscultation, No wheezing, rhonchi, rales. abdomen soft, non-tender. BACK: Normal exam ASSESSMENT/PLAN: 1. Class 2 obesity with body mass index (BMI) of 37.0 to 37.9 in adult, unspecified obesity type, unspecified whether serious comorbidity present - ICD9: 278.00, V85.37, ICD10: E66.812, Z68.37 (primary diagnosis) Weight increasing Send for rosio, can also try victoza. - TIRZEPATIDE 2.5 MG/0.5 ML SUBCUTANEOUS PEN INJECTOR 2. Anxiety - ICD9: 300.00, ICD10: F41.9 Currently on cymbalta 30mg, will increase to 60 mg. Also on this for neuropathy. 3. Episode of recurrent major dep (more content not included)... Normal [facility] [place] 07-11-2024 DICKN Telephone (INTMWS) -------- CHARYFRANCIS ([id number]) 1965 F Date Time Provider Department 07/11/24 MARILUZ HIGH During your visit today, we recorded the following information about you: Ana Luisa Cruz LPN 07/11/2024 11:28 AM Signed Electronic PA rec'd and completed for mounjaro. This is not covered. [employer] doesn't cover any medicines for weight loss. This med class is excluded. Note from payer: Coverage is provided when the prescribed medication is used for a Food and Drug Administration (FDA) approved indication. Approved indications include the treatment of diabetes mellitus, type 2. [facility] Policy for Medical Necessity as posted on the [facility] website and [place] Unified Preferred Drug List criteria were reviewed and per [place] Administrative Code Rule 5160-1-01 (C) and (B), a medically necessary service must include: generally accepted standards of medical practice, be clinically appropriate in administration, treatment and outcome and be the lowest cost alternative to effectively treat the condition. Please contact your provider to assist you with other treatment options that might be covered under your benefit package, or other services that might be available through the community. Payer: [facility] Electronic appeal: Not supported View History Notes Time User Attachment Attachment received from payer. 07/11/2024 11:22 AM [facility], Rx Priorauth In Document Medication Being Authorized tirzepatide (MOUNJARO) 2.5 mg/0.5 mL pen injector Inject 2.5 mg subcutaneously one time a week. Dispense: 2 mL Refills: 2 Start: 07/11/2024 End: 10/09/2024 Class: Normal Diagnoses: Class 2 obesity with body mass index (BMI) of 37.0 to 37.9 in adult, unspecified obesity type, unspecified whether serious comorbidity present This order has been released to its destination. To be filled at: [id number] - [place] [address] - [address] [facility] - [phone] Ana Luisa Cruz LPN 07/11/2024 1:52 PM Signed Fyi to provider. Fallon Hernandez RN 07/12/2024 8:51 AM Signed Esequiel with [facility] calls on behalf of patient to ask if provider was going to approve medication. Notified Esequiel that PA had been submitted and denied. Contacted patient and let her know. Patient asking if provider would send in medication discussed at that she had been on before. Patient not certain the name of the medication. Reviewed medication list and noted patient previously took Adipex and Victoza. EVERETT Phillips Kim E, LPN 07/12/2024 9:09 AM Signed Esequiel form [facility] called again wanting to know if the provider can approve Mounjaro or get PA approved. Advised provider is out of the office today bu twe will send this to PA nurse to address. JAMES Galvan Janice, LPN 07/12/2024 9:53 AM Signed Pt is not diabetic. There is no phone number to call Esequiel back from [facility]. Sg Clemons PA-C 07/12/2024 10:58 AM Signed Patient was previously on Victoza. Will this medication be covered? APARNA Mahoney Janice, LPN 07/13/2024 10:42 AM Signed It wouldn't be covered for weight loss and pt is not diabetic. Pt's insurance doesn't covered any weight loss medicines. It is excluded drug class. Ana Luisa Cruz LPN 07/19/2024 4:52 PM Signed 09/17/23 rx for adipex was send per other encounter. Allergies As of Date: 07/11/2024 Noted Allergy Reaction BENADRYL (DIPHENHYDRAMINE HCL) 11/13/2014 12 - Shortness of Breath Comments: She is not sure of the reaction. Was given it in the ER years ago. PENICILLINS 09/01/2010 4 - Hives Date Reviewed: 07/11/2024 Reviewed by: Alla Mariee LPN - Fully Assessed Reason for Visit: Insurance Authorization [1693] Prescriptions as of 07/19/2024 - Phentermine HCl (ADIPEX-P) 37.5 mg tablet Take 1 tablet by mouth once daily for 30 days. - nitrofurantoin monohydrate and macrocrystal (MACROBID) 100 mg capsule Take 1 capsule by mouth two times a day with meals for 5 days. - mirabegron (MYRBETRIQ) 25 mg Tb24 Take 1 tablet by mouth once daily. - tirzepatide (MOUNJARO) 2.5 mg/0.5 mL pen injector Inject 2.5 mg subcutaneously one time a week. - DULoxetine (CYMBALTA) 30 mg capsule Take 2 capsules by mouth once daily. - montelukast (SINGULAIR) 10 mg tablet take 1 tablet by mouth once daily. - benzonatate (TESSALON PERLE) 100 mg capsule take 1 capsule by mouth three times daily as needed for cough - albuterol HFA (VENTOLIN HFA) 90 mcg/actuation inhaler Inhale 2 Puffs as instructed every 4 hours as needed for wheezing/shortness of breath. - traZODone (DESYREL) 100 mg tablet TAKE 3 TABLETS EVERY DAY - albuterol (PROVENTIL) 2.5 mg /3 mL (0.083 %) nebulizer solution Use 3 mL via nebulizer every 4 hours as needed for wheezing/shortness of breath. J44.9 - furosemide (LASIX) 40 mg tablet Take 1 tablet by (more content not included)... Normal [facility] Urinalysis complete panel (U )on 07-11-2024 Bacteria LM.HPF (Urine sed) [#/Area] Negative Negative /HPF [facility] Bilirubin Ql (U) Negative Negative [facility] Clarity (Unsp spec) Clear Clear [facility] Color (U) Dark Yellow Abnormal Yellow [facility] Epithelial cells LM.HPF (Urine sed) [#/Area] Moderate /HPF [facility] Glucose Test strip (U) [Mass/Vol] Negative Negative [facility] Hemoglobin Ql (U) 1+ Abnormal Negative [facility] Hyaline casts (Urine sed) [#/Area] 0 /[LPF] 0 /LPF [facility] Interpretation and review of laboratory results Abnormal [facility] Ketones Ql (U) Negative Negative [facility] Leukocyte esterase Test strip Ql (U) Trace Abnormal Negative [facility] Nitrite Ql (U) Negative Negative [facility] pH (U) 5.5 [pH] NINF - 8.5 [facility] Protein (U) [Mass/Vol] 1+ Abnormal Negative [facility] RBC LM.HPF (Urine sed) [#/Area] /[HPF] Abnormal 0-2 /HPF [facility] Specific gravity (U) [Rel density] 1.031 High 1.005 - 1.030 [facility] Urobilinogen Ql (U) 1.0 EU/dL 0.2-1.0 EU/dL [facility] WBC LM.HPF (Urine sed) [#/Area] 6-10 /HPF Abnormal 0-5 /HPF [facility] This test was develo ped and its performance characteristics determined by [facility]'s [facility] [place] ([facility]). It has not been cleared or approved by the FDA. -[facility] is regulated under CLIA as qualified to perform high-complexity testing. This test is used for clinical purposes. It should not be regarded as investigational or for research. [facility] Bacteria LM.HPF (Urine sed) [#/Area] Negative Normal Negative [facility] Comment on above: Order Comment: Speci men Type: URINE SPECIMEN Ordering Facility: [facility] Address: [address] [place] [address] Performed By: #### 2 4356-8 #### [facility] CLIA [id number] [address] [place] [address] [place] Bilirubin Ql (U) Negative Normal Negative [facility] Comment on above: Order Comment: Speci men Type: URINE SPECIMEN Ordering Facility: [facility] Address: [address] [place] [address] Performed By: #### 2 4356-8 #### [facility] CLIA [id number] [address] [place] [address] [place] Clarity (Unsp spec) Clear Normal Clear [facility] Comment on above: Order Comment: Speci men Type: URINE SPECIMEN Ordering Facility: [facility] Address: [address] [place] [address] Performed By: #### 2 4356-8 #### [facility] CLIA [id number] [address] [place] [address] [place] Color (U) Dark Yellow Abnormal Yellow [facility] Comment on above: Order Comment: Speci men Type: URINE SPECIMEN Ordering Facility: [facility] Address: [address] [place] [address] Performed By: #### 2 4356-8 #### [facility] CLIA [id number] [address] [place] [address] [place] Epithelial cells LM.HPF (Urine sed) [#/Area] Moderate Normal [facility] Comment on above: Order Comment: Speci men Type: URINE SPECIMEN Ordering Facility: [facility] Address: [address] [place] [address] Performed By: #### 2 4356-8 #### [facility] CLIA [id number] [address] [place] [address] [place] Glucose Test strip (U) [Mass/Vol] Negative Normal Negative [facility] Comment on above: Order Comment: Speci men Type: URINE SPECIMEN Ordering Facility: [facility] Address: [address] [place] [address] Performed By: #### 2 4356-8 #### [facility] CLIA [id number] [address] [place] [address] [place] Hemoglobin Ql (U) 1+ Abnormal Negative [facility] Comment on above: Order Comment: Speci men Type: URINE SPECIMEN Ordering Facility: [facility] Address: [address] [place] [address] Performed By: #### 2 4356-8 #### [facility] CLIA [id number] [address] [place] [address] [place] Hyaline casts (Urine sed) [#/Area] 0 /[LPF] Normal 0 /LPF [facility] Comment on above: Order Comment: Speci men Type: URINE SPECIMEN Ordering Facility: [facility] Address: [address] [place] [address] Performed By: #### 2 4356-8 #### [facility] CLIA [id number] [address] [place] [address] [place] Ketones Ql (U) Negative Normal Negative [facility] Comment on above: Order Comment: Speci men Type: URINE SPECIMEN Ordering Facility: [facility] Address: [address] [place] [address] Performed By: #### 2 4356-8 #### [facility] CLIA [id number] [address] [place] [address] [place] Leukocyte esterase Test strip Ql (U) Trace Abnormal Negative [facility] Comment on above: Order Comment: Speci men Type: URINE SPECIMEN Ordering Facility: [facility] Address: [address] [place] [address] Performed By: #### 2 4356-8 #### [facility] CLIA [id number] [address] [place] [address] [place] Nitrite Ql (U) Negative Normal Negative [facility] Comment on above: Order Comment: Speci men Type: URINE SPECIMEN Ordering Facility: [facility] Address: [address] [place] [address] Performed By: #### 2 4356-8 #### [facility] CLIA [id number] [address] [place] [address] [place] pH (U) 5.5 [pH] Normal <8.5 [facility] Comment on above: Order Comment: Speci men Type: URINE SPECIMEN Ordering Facility: [facility] Address: [address] [place] [address] Performed By: #### 2 4356-8 #### [facility] CLIA [id number] [address] [place] [address] [place] Protein (U) [Mass/Vol] 1+ Abnormal Negative [facility] Comment on above: Order Comment: Speci men Type: URINE SPECIMEN Ordering Facility: [facility] Address: [address] [place] [address] Performed By: #### 2 4356-8 #### [facility] CLIA [id number] [address] [place] [address] [place] RBC LM.HPF (Urine sed) [#/Area] /[HPF] Abnormal 0-2 /HPF [facility] Comment on above: Order Comment: Speci men Type: URINE SPECIMEN Ordering Facility: [facility] Address: [address] [place] [address] Performed By: #### 2 4356-8 #### [facility] CLIA [id number] [address] [place] [address] [place] Specific gravity (U) [Rel density] 1.031 High 1.005-1.030 [facility] Comment on above: Order Comment: Speci men Type: URINE SPECIMEN Ordering Facility: [facility] Address: [address] [place] [address] Performed By: #### 2 4356-8 #### [facility] CLIA [id number] [address] [place] [address] [place] Urobilinogen Ql (U) 1.0 EU/dL Normal 0.2-1.0 EU/dL [facility] Comment on above: Order Comment: Speci men Type: URINE SPECIMEN Ordering Facility: [facility] Address: [address] [place] [address] Performed By: #### 2 4356-8 #### [facility] CLIA [id number] [address] [place] [address] [place] WBC LM.HPF (Urine sed) [#/Area] 6-10 /HPF Abnormal 0-5 /HPF [facility] Comment on above: Order Comment: Speci men Type: URINE SPECIMEN Ordering Facility: [facility] Address: [address] [place] [address] Performed By: #### 2 4356-8 #### [facility] CLIA [id number] [address] [place] [address] [place] ORBITS/SELLA/EAR WO IV CO NTRASTon 06-16-2024 CT ORBITS/SELLA/EAR WO IV CONTRAST Patient Name: FRANCIS DIEZ : 1965 Exam Date/Time: 06/16/2024 15:23 Procedure: CT ORBITS/SELLA/EAR WO IV CONTRAST Ordering Provider: BANSAL CAMERON Reason For Exam: ACUTE EYE PAIN EXAMINATION: CT ORBITS/SELLA/EAR WO IV CONTRAST CLINICAL HISTORY: ACUTE EYE PAIN COMPARISON: None TECHNIQUE: Helical CT of the facial bones without contrast. Dose reduction was employed with automated exposure control. FINDINGS: FACIAL BONES: No acute fractures. ORBITS: No evidence of globe rupture or retrobulbar hematoma. SINUSES/MASTOIDS: No hemorrhage in the paranasal sinuses. SOFT TISSUES: No significant swelling or other focal soft tissue abnormalities. MANDIBLE/TMJ's: Intact. No fracture or dislocation. SKULL BASE: No fracture or osseous lesion. OTHER: The visualized intracranial contents and upper cervical spine are unremarkable. IMPRESSION: 1. No facial fracture or retrobulbar hematoma. Report Dictated on Electronically Signed By: Xavier Patel MD Electronically Signed Date/Time: 06/16/2024 3:28 PM EDT RT Eye Pressure / stabbing pain x 3 -4 days No trauma, no prior fx or sx, no fever Normal [facility] CT Orbit WO contraston 06-16 1. No facial fractur e or retrobulbar hematoma. Report Dictated on Electronically Signed By: Xavier Patel MD Electronically Signed Date/Time: 06/16/2024 3:28 PM EDT [facility] Patient Name: FRANCIS DIEZ : 1965 Exam Date/Time: 06/16/2024 15:23 Procedure: CT ORBITS/SELLA/EAR WO IV CONTRAST Ordering Provider: BANSAL CAMERON Reason For Exam: ACUTE EYE PAIN EXAMINATION: CT ORBITS/SELLA/EAR WO IV CONTRAST CLINICAL HISTORY: ACUTE EYE PAIN COMPARISON: None TECHNIQUE: Helical CT of the facial bones without contrast. Dose reduction was employed with automated exposure control. FINDINGS: FACIAL BONES: No acute fractures. ORBITS: No evidence of globe rupture or retrobulbar hematoma. SINUSES/MASTOIDS: No hemorrhage in the paranasal sinuses. SOFT TISSUES: No significant swelling or other focal soft tissue abnormalities. MANDIBLE/TMJ's: Intact. No fracture or dislocation. SKULL BASE: No fracture or osseous lesion. OTHER: The visualized intracranial contents and upper cervical spine are unremarkable. [facility] Xavier Patel MD - 06/16/2024 Patient Name: FRANC[facility]IEZ [facility] 1965 [id number] Exam Date/Time: 06/16/2024 15:23 Procedure: CT ORBITS/SELLA/EAR WO IV CONTRAST Ordering Provider: BANSAL CAMERON Reason For Exam: ACUTE EYE PAIN EXAMINATION: CT ORBITS/SELLA/EAR WO IV CONTRAST CLINICAL HISTORY: ACUTE EYE PAIN COMPARISON: None TECHNIQUE: Helical CT of the facial bones without contrast. Dose reduction was employed with automated exposure control. FINDINGS: FACIAL BONES: No acute fractures. ORBITS: No evidence of globe rupture or retrobulbar hematoma. SINUSES/MASTOIDS: No hemorrhage in the paranasal sinuses. SOFT TISSUES: No significant swelling or other focal soft tissue abnormalities. MANDIBLE/TMJ's: Intact. No fracture or dislocation. SKULL BASE: No fracture or osseous lesion. OTHER: The visualized intracranial contents and upper cervical spine are unremarkable. IMPRESSION: 1. No facial fracture or retrobulbar hematoma. Report Dictated on Electronically Signed By: Xavier Patel MD Electronically Signed Date/Time: 06/16/2024 3:28 PM EDT [facility] Radiology Study observation (narrative) [facility] alth CT Orbit WO contrastOrdered By: Xavier Patel on 06-16-2024 [facility] [employer] Work Phone: ED Provider Noteon ED Provider Note EMERGENCY DEPARTMENT ENCOUNTER Pt Name: Francis Diez Birthdate 1965 Date of evaluation: 06/16/2024 ED Provider: Fer Bansal PA-C CHIEF COMPLAINT Chief Complaint Patient presents with Eye Pain Patient complains of eye pressure x 2-3 days with redness HISTORY OF PRESENT ILLNESS (Location/Symptom, Timing/Onset, Context/Setting, Quality, Duration, Modifying Factors, Severity) Note limiting factors. I wore appropriate PPE for the entirety of this encounter. HPI Francis Diez is a 59 y.o. female who presents to the emergency department chief complaint of right eye pain and redness. Woke up with this right eye pain approximately 3 days ago. Noticed her right eye was injected and red. States is a pressure type pain in her right eye without visual changes including diplopia, blurry vision, floaters. Denies any foreign body sensation, increased drainage or discharge. Denies any history of glaucoma or other ocular issues. Saw her eye doctor earlier this year. States she wears corrective lenses but no contacts. Denies any severe headache, arm, leg weakness, visual changes, trouble speaking, trouble walking. Denies any fall or trauma to the region. Denies any use of qcwj-unf-tyelboe drops. Nursing Notes were reviewed. Limitations to history: None Outside historians: None REVIEW OF SYSTEMS Review of Systems 14 systems reviewed, positives and pertinent negatives as per HPI. All other systems were reviewed and are negative. PAST MEDICAL HISTORY Past Medical History: Diagnosis Date Anxiety Bronchiectasis (HCC) Class 2 severe obesity due to excess calories with serious comorbidity and body mass index (BMI) of 35.0 to 35.9 in adult (HCC) COPD (chronic obstructive pulmonary disease) (HCC) Diaphragm paralysis Hypertension Insomnia Major depressive disorder Mixed hyperlipidemia Nocturnal oxygen desaturation Venous insufficiency (chronic) (peripheral) SURGICAL HISTORY Past Surgical History: Procedure Laterality Date CHOLECYSTECTOMY HYSTERECTOMY LUNG SURGERY CURRENT MEDICATIONS Previous Medications No medications on file ALLERGIES Benadryl [diphenhydramine] and Penicillins FAMILY HISTORY No family history on file. SOCIAL HISTORY Social History Socioeconomic History Marital status: Single Tobacco Use Smoking status: Every Day Current packs/day: 0.50 Average packs/day: 0.5 packs/day for 41.8 years (20.9 ttl pk-yrs) Types: Cigarettes Start date: 1982 [email or web address] Financial Resource Strain: Medium Risk (11/27/2023) Received from [facility] Overall Financial Resource Strain (CARDIA) Difficulty of Paying Living Expenses: Somewhat hard Food Insecurity: Food Insecurity Present (11/27/2023) Received from [facility] Hunger Vital Sign Worried About Running Out of Food in the Last Year: Sometimes true Ran Out of Food in the Last Year: Sometimes true Transportation Needs: No Transportation Needs (11/27/2023) Received from [facility] PRAPARE - Transportation Lack of Transportation (Medical): No Lack of Transportation (Non-Medical): No Physical Activity: Insufficiently Active (11/27/2023) Received from [facility] Exercise Vital Sign Days of Exercise per Week: 2 days Minutes of Exercise per Session: 40 min Stress: Stress Concern Present (11/27/2023) Received from [facility] Citizen Of [place] of Occupational Health - Occupational Stress Questionnaire Feeling of Stress : To some extent Social Connections: Moderately Isolated (11/27/2023) Received from [facility] Social Connection and Isolation Panel [NHANES] Frequency of Communication with Friends and Family: More than three times a week Frequency of Social Gatherings with Friends and Family: Once a week Attends Druze Services: More than 4 times per year Active Member of Clubs or Organizations: No Attends Club or Organization Meetings: Never Marital Status: Housing Stability: Unknown (11/27/2023) Received from [facility] Housing Stability Vital Sign Unable to Pay for Housing in the Last Year: No Unstable Housing in the Last Year: No SCREENINGS PHYSICAL EXAM ED Triage Vitals Temp Heart Rate Resp BP 06/16/24 1400 06/16/24 1400 06/16/24 1400 06/16/24 1400 36.8 ?C (98.3 ?F) 86 16 (!) 170/102 SpO2 Temp Source Heart Rate Source Patient Position 06/16/24 1400 06/16/24 1400 06/16/24 1400 -- (!) 90 % Temporal Monitor BP Location FiO2 (%) 06/16/24 1544 -- Right arm Physical Exam Vitals and nursing note reviewed. Constitutional: General: She is not in acute distress. Appearance: She is well-developed. She is not ill-appearing or toxic-appearing. HENT: Head: Normocephalic and atraumatic. Eyes: General: Lids are normal. Lids are everted, no foreign bodies appreciated. Right eye: No foreign body, discharge or hordeolum. Left eye: No foreign body, discharge or hordeolum. I (more content not included)... Normal [facility] 25(OH)D3 [facility] 2023 25-hydroxyvitamin D3 [Mass/Vol] 33.5 ng/mL Normal 31.0-80.0 [facility] Comment on above: Order Comment: Speci men Type: BLOOD SPECIMENOrdering Facility: [facility] Address: [address] [place] [address] Performed By: #### 1 [id number] ####[facility] LABCLIA [id number] [facility]LEY[facility] [id number] CNOVon 01-05-2024 CNOV Office Visit (PULMWS ) -------- FRANCIS DIEZ ([id number]) 1965 F Date Time Provider Department 01/05/24 11:30 AM FLORINA ARENAS PULMWS During your visit today, we recorded the following information about you: Pulse Respiration Blood pressure Weight 82/minute 14/minute 136/82 85.7 kg Height 1.575 m Florina Arenas PA-C 01/05/2024 12:24 PM Signed Patient: Francis Diez PCP: Mariluz High MD CC: follow up HPI: Francis Diez 58 year old female current smoker, 84 pack years with PMH significant for bronchiectasis s/p LLL resection for infection in 1992, left diaphragmatic dysfunction, chronic asthmatic bronchitis, COPD and HTN. Current therapy with Symbicort and Albuterol as needed. Today, patient states she started with increased wheezing. She attributed to seasonal allergies. She is feeling more SOB. Getting SOB walking from room to room. Daily cough primarily in the morning and at nighttime. Clear sputum, no hemoptysis. No fevers, chills or night sweats. No unintended weight loss. Occasional lower extremity edema. No heartburn/GERD. Currently not smoking daily. When she does smoke she will go through 1 pack in 2 days. Currently wearing supplemental oxygen as needed and at night. DME: [employer] PAST MEDICAL HISTORY Diagnosis Date Allergies ASTHMA UNSPECIFIED 07/08/2005 Bronchiectasis (HCC) CHRONIC AIRWAY OBSTRUCTION NEC 07/08/2005 Depression Diaphragm dysfunction HYPERTENSION NOS 07/08/2005 Allergies: Benadryl [Diphenhyd* Shortness of Breath Comment:She is not sure of the reaction. Was given it in the ER years ago. Penicillins Hives albuterol HFA (VENTOLIN HFA) 90 mcg/actuation inhalerInhale 2 Puffs as instructed every 4 hours as needed for wheezing/shortness of breath.Disp: 54 gRfl: 3 albuterol (PROVENTIL) 2.5 mg /3 mL (0.083 %) nebulizer solutionUse 3 mL via nebulizer every 4 hours as needed for wheezing/shortness of breath. J44.9Disp: 3 mLRfl: 5 furosemide (LASIX) 40 mg tabletTake 1 tablet by mouth once daily.Disp: 90 tabletRfl: 3 rosuvastatin (CRESTOR) 5 mg tabletTake 1 tablet by mouth daily at bedtime.Disp: 90 tabletRfl: 3 cholecalciferol (VITAMIN D3) 1,000 unit tab tabletTake 1 tablet by mouth once daily.Disp: 90 tabletRfl: 3 isbldoioayz-llcjhoshy-sh lanter (TRELEGY ELLIPTA) 100-62.5-25 mcg inhalation powderInhale 1 Puff as instructed once daily.Disp: 1 EachRfl: 11 DULoxetine (CYMBALTA) 30 mg capsuleTake 1 capsule by mouth once daily.Disp: 30 capsuleRfl: 2 cyclobenzaprine (FLEXERIL) 10 mg tabletTake 1 tablet by mouth at bedtime as needed for muscle spasm or pain.Disp: 30 tabletRfl: 0 spironolactone (ALDACTONE) 25 mg tabletTake 1 tablet by mouth once daily.Disp: 90 tabletRfl: 1 buPROPion XL (WELLBUTRIN XL) 300 mg 24 hr tabletTake 1 tablet by mouth once daily.Disp: 90 tabletRfl: 3 ipratropium (ATROVENT) 0.02 % nebulizer solutionUse 2.5 mL via nebulizer four times a day as needed. OVER 5-15 MINUTES FOR WHEEZING OR SHORTNESS OF BREATH J44.9Disp: 2.5 mLRfl: 5 potassium chloride SR (MICRO-K) 10 mEq CR capsuleTAKE 1 CAPSULE BY MOUTH 3 TIMES DAILYDisp: 270 capsuleRfl: 3 insulin needles, DISPOSABLE, (PEN NEEDLE) 31 gauge x 5/16Use one needle per dose. 1 per day.Disp: 100 EachRfl: 11 traZODone (DESYREL) 100 mg tabletTAKE 3 TABLETS EVERY DAYDisp: 270 tabletRfl: 3 fluticasone (FLONASE) 50 mcg/actuation nasal sprayUse 2 Sprays in each nostril once daily. ADMINISTER 2 SPRAYS EACH NOSTRIL DAILY, RINSE MOUTH OUT AFTER USE.Disp: 3 EachRfl: 3 nitroglycerin sublingual (NITROQUICK) 0.4 mg SL tabletDissolve 1 tablet under the tongue as needed. FOR CHEST PAIN. IF NO RELIEF CALL 911Disp: 25 tabletRfl: 0 COMPOUNDED PRESCRIPTIONOxygen 2L at night and as neededDisp: Rfl: 11 COMPOUNDED PRESCRIPTIONNebulizer machine DX: 496/143.90Disp: 1Rfl: 0 Social History Tobacco Use Smoking status: Every Day Packs/day: 2.00 Years: 42.00 Additional pack years: 0.00 Total pack years: 84.00 Types: Cigarettes Start date: 1982 Smokeless tobacco: Never Tobacco comments: Did not smoke during pregnancies. Former 2 ppd smoker. Less than 1/2ppd 12/22/2022 Vaping Use Vaping Use: Never used Substance Use Topics Alcohol use: No Drug use: No Family History Problem Relation Age of Onset other (Lung cancer [Other]) Mother Asthma Mother Diabetes Father Dialysis Father other (Myocardial infarction) Sister Colon Cancer Sister Colon Cancer Brother 2 brothers. other (Myocardial infarction) Brother PAST SURGICAL HISTORY Procedure Laterality Date LAPS SURG CHOLECYSTECTOMY W/CHOLANGIOGRAPHY 04-21-[address] [facility] Dr Guillen RMVL LUNG OTHER THAN PNEUMONECTOMY 1 LOBE LOBECT 1992 Left - bronchiectasis TOTAL ABDOMINAL HYSTERECT W/WO RMVL TUBE OVARY Hysterectomy, CARMENCITA I reviewed the past medical history, family history, social history and surgical history with ch (more content not included)... Normal [facility] SPIROMETRY WITH DILATOR IF O BSTRUCTEDon 01-05-2024 VBQ42-53% POST (L/S) 0.65 L/S [facility] SRF69-58% PRE (L/S) 0.57 L/S [facility] FEV1 PRE (L) 0.86 L [facility] FEV1/FVC POST (%) 71 % [facility] FEV1/FVC PRE (%) 71 % [facility] FEV1_POST (L) 0.88 L [facility] FVC POST (L) 1.25 L [facility] FVC PRE (L) 1.21 L [facility] PEF POST (L/S) 2.23 L/S [facility] PEF PRE (L/S) 2.19 L/S [facility] [address] [facility], [place] [address] Test Date: 2024-01-05 Pat Name: FRANCIS DIEZ Department: Room: Gender: Female Supervisor Fertilizer: : 1965 Requested By: Order Number: [id number] Reading MD: Xavier Soria MD Interpretive Statements Medications and Allergies were reviewed for possible drug interactions per policy. No contraindications or sensitivities were noted. Meds taken: Trelegy 4 /hours before testing. Current ATS/ERS acceptability and repeatability standards for spirometry met. Start of test and EOFE criteria met. SP - 2 puffs Albuterol (180 mcg) delivered by MDI via holding chamber. HR pre = 82 /min, HR post = 82 /min. IMPRESSION: Spirometry shows no obstruction.The reduced FVC suggests restriction. Recommend lung volumes if clinically indicated. There is no significant bronchodilator response. Electronically Signed On 01-05-2024 17:04:03 EDT by Xavier Soria MD ID: [id number] Name: FRANCIS DIEZ Race: White Ht: 62.00 in Wt: 189.00 lbs Age: 58 Gender: Female : 1965 Dx: Unspecified asthma, uncomplicated Smoking Hx: Non-smoker Doctor: FLORINA ARENAS Test Date: 01/05/2024 Site: [facility] Tech: Petush, Thierno PRE-BRONCH POST-BRONCH Pre LLN Pred ULN %Pred Post %Pred %Chg SPIROMETRY FVC (L) 1.21 1.98 2.73 3.50 44 1.25 45 1 FEV1 (L) 0.86 1.57 2.19 2.77 39 0.88 40 1 FEV1/FVC 0.71 0.68 0.80 0.90 88 0.71 88 0 PEF L/s (L/sec) 2.19 4.34 5.94 7.55 36 2.23 37 1 FEF50 (L/sec) 0.85 1.55 3.16 4.77 26 0.84 26 -1 FIF50 (L/sec) 2.21 1.73 -21 FEF50/FIF50 0.38 90-100 0.49 26 FIVC (L) 1.02 1.07 4 ZIL02-17 (L/sec) 0.57 1.09 2.14 3.55 26 0.65 30 13 Time (sec) 6.27 6.13 -2 FET PEF (sec) 0.08 0.13 62 BEVERLY (L) 0.03 0.05 97 Vol Extrap % (%) 2 4 91 Comments: Medications and Allergies were reviewed for possible drug interactions per policy. No contraindications or sensitivities were noted. Meds taken: Trelegy 4 /hours before testing. Current ATS/ERS acceptability and repeatability standards for spirometry met. Start of test and EOFE criteria met. SP - 2 puffs Albuterol (180 mcg) delivered by MDI via holding chamber. HR pre = 82 /min, HR post = 82 /min. PULMONARY FUNCTION LAB [facility] XR CHEST 2V FRONTAL/LATon XR CHEST 2V FRONTAL/LAT * * *Final Repor t* * * DATE OF EXAM: Jan 05 2024 12:12PM [id number] - XR CHEST 2V FRONTAL/LAT / PROCEDURE REASON: multiple diagnoses * * * * Physician Interpretation * * * * EXAMINATION: CHEST RADIOGRAPH (2 VIEW FRONTAL and LATERAL) CLINICAL HISTORY: Asthma with COPD with exacerbation (HCC) (HCC) Asthma with COPD with exacerbation (HCC) (HCC). Prior left lower lobe resection. MQ: XC2_6 EXAM DATE/TIME: 01/05/2024 12:12 PM COMPARISON: 10/14/2023 RESULT: Lines, tubes, and devices: None. Lungs and pleura: No consolidation. No lung mass. No pleural effusion. No pneumothorax. Stable significant elevation of left hemidiaphragm with adjacent compressive atelectasis Cardiomediastinal silhouette: Normal cardiomediastinal silhouette. Bones and soft tissues: Multilevel degenerative change and osteophytosis. IMPRESSION: Stable chest. No developing abnormality Tire Buffer: PSCB Transcribe Date/Time: Jan 05 2024 4:58P Dictated by : MIKAYLA RODRIGUEZ MD This examination was interpreted and the report reviewed and electronically signed by: MIKAYLA RODRIGUEZ MD on Jan 05 2024 5:00PM EST [id number] Normal [facility] XR Chest PA and Lateralon IMPRESSION: Stable chest. No developing abnormality Tire Buffer: PSCB Transcribe Date/Time: Jan 05 2024 4:58P Dictated by : MIKAYLA RODRIGUEZ MD This examination was interpreted and the report reviewed and electronically signed by: MIKAYLA RODRIGUEZ MD on Jan 05 2024 5:00PM EST DIVISION OF RADIOLOGY * * *Final Report* * * DATE OF EXAM: Jan 05 2024 12:12PM [id number] - XR CHEST 2V FRONTAL/LAT / PROCEDURE REASON: multiple diagnoses * * * * Physician Interpretation * * * * EXAMINATION: CHEST RADIOGRAPH (2 VIEW FRONTAL & LATERAL) CLINICAL HISTORY: Asthma with COPD with exacerbation (HCC) (HCC) Asthma with COPD with exacerbation (HCC) (HCC). Prior left lower lobe resection. MQ: XC2_6 EXAM DATE/TIME: 01/05/2024 12:12 PM COMPARISON: 10/14/2023 RESULT: Lines, tubes, and devices: None. Lungs and pleura: No consolidation. No lung mass. No pleural effusion. No pneumothorax. Stable significant elevation of left hemidiaphragm with adjacent compressive atelectasis Cardiomediastinal silhouette: Normal cardiomediastinal silhouette. Bones and soft tissues: Multilevel degenerative change and osteophytosis. DIVISION OF RADIOLOGY Provider, [facility] - 01/05/2024 * * *Final Report* * * DATE OF EXAM: Jan 05 2024 12:12PM [id number] - XR CHEST 2V FRONTAL/LAT / PROCEDURE REASON: multiple diagnoses * * * * Physician Interpretation * * * * EXAMINATION: CHEST RADIOGRAPH (2 VIEW FRONTAL & LATERAL) CLINICAL HISTORY: Asthma with COPD with exacerbation (HCC) (HCC) Asthma with COPD with exacerbation (HCC) (HCC). Prior left lower lobe resection. MQ: XC2_6 EXAM DATE/TIME: 01/05/2024 12:12 PM COMPARISON: 10/14/2023 RESULT: Lines, tubes, and devices: None. Lungs and pleura: No consolidation. No lung mass. No pleural effusion. No pneumothorax. Stable significant elevation of left hemidiaphragm with adjacent compressive atelectasis Cardiomediastinal silhouette: Normal cardiomediastinal silhouette. Bones and soft tissues: Multilevel degenerative change and osteophytosis. IMPRESSION IMPRESSION: Stable chest. No developing abnormality Tire Buffer: JIHAN Transcribe Date/Time: Jan 05 2024 4:58P Dictated by : MIKAYLA RODRIGUEZ MD This examination was interpreted and the report reviewed and electronically signed by: MIKAYLA RODRIGUEZ MD on Jan 05 2024 5:00PM [facility] Radiology Study observation (narrative) Yair giron [facility] XR Chest PA and LateralOrder ed By: [facility] Tele[facility] (MILLIE) -------- FRANCIS DIEZ ([id number]) 1965 F Date Time Provider Department 12/20/23 [facility] During your visit today, we recorded the following information about you: Jojo Castaneda RN 12/20/2023 4:38 PM Signed Fax received from [employer] stating that they have been unsuccessful in reaching Pt to set up her overnight pulse oximetry test; therefore, the order has been cancelled. See scanned document. Jojo Castaneda RN December 20, 2023 4:38 PM Allergies As of Date: 12/20/2023 Noted Allergy Reaction BENADRYL (DIPHENHYDRAMINE HCL) 11/13/2014 12 - Shortness of Breath Comments: She is not sure of the reaction. Was given it in the ER years ago. PENICILLINS 09/01/2010 4 - Hives Date Reviewed: 11/09/2023 Reviewed by: Florina Arenas PA-C - Fully Assessed Reason for Visit: Orders [681] Prescriptions as of 12/20/2023 - albuterol HFA (VENTOLIN HFA) 90 mcg/actuation inhaler Inhale 2 Puffs as instructed every 4 hours as needed for wheezing/shortness of breath. - albuterol (PROVENTIL) 2.5 mg /3 mL (0.083 %) nebulizer solution Use 3 mL via nebulizer every 4 hours as needed for wheezing/shortness of breath. J44.9 - furosemide (LASIX) 40 mg tablet Take 1 tablet by mouth once daily. - rosuvastatin (CRESTOR) 5 mg tablet Take 1 tablet by mouth daily at bedtime. - cholecalciferol (VITAMIN D3) 1,000 unit tab tablet Take 1 tablet by mouth once daily. - pqfqttdywwu-twoxusneo-fv lanter (TRELEGY ELLIPTA) 100-62.5-25 mcg inhalation powder Inhale 1 Puff as instructed once daily. - DULoxetine (CYMBALTA) 30 mg capsule Take 1 capsule by mouth once daily. - cyclobenzaprine (FLEXERIL) 10 mg tablet Take 1 tablet by mouth at bedtime as needed for muscle spasm or pain. - spironolactone (ALDACTONE) 25 mg tablet Take 1 tablet by mouth once daily. - buPROPion XL (WELLBUTRIN XL) 300 mg 24 hr tablet Take 1 tablet by mouth once daily. - ipratropium (ATROVENT) 0.02 % nebulizer solution Use 2.5 mL via nebulizer four times a day as needed. OVER 5-15 MINUTES FOR WHEEZING OR SHORTNESS OF BREATH J44.9 - potassium chloride SR (MICRO-K) 10 mEq CR capsule TAKE 1 CAPSULE BY MOUTH 3 TIMES DAILY - insulin needles, DISPOSABLE, (PEN NEEDLE) 31 gauge x 5/16 Use one needle per dose. 1 per day. - traZODone (DESYREL) 100 mg tablet TAKE 3 TABLETS EVERY DAY - fluticasone (FLONASE) 50 mcg/actuation nasal spray Use 2 Sprays in each nostril once daily. ADMINISTER 2 SPRAYS EACH NOSTRIL DAILY, RINSE MOUTH OUT AFTER USE. - nitroglycerin sublingual (NITROQUICK) 0.4 mg SL tablet Dissolve 1 tablet under the tongue as needed. FOR CHEST PAIN. IF NO RELIEF CALL 911 - COMPOUNDED PRESCRIPTION Oxygen 2L at night and as needed - COMPOUNDED PRESCRIPTION Nebulizer machine DX: 496/143.90 Facility-Administered Medications as of 12/20/2023 - perflutren lipid microspheres 1.3 mL in NaCl (PF) 0.9% 10 mL injection (DEFINITY) - sodium chloride 0.9 % (flush) 10 mL (BD POSIFLUSH) Problem List As Of Date 12/20/2023 Noted Resolved COPD with chronic bronchitis (HCC) [J44.89] 07/08/2005 Essential hypertension [I10] 07/08/2005 Unspecified asthma(493.90) [J45.909] 07/08/2005 11/26/2014 HYPOPOTASSEMIA [E87.6] 07/09/2005 Major depressive disorder [F32.9] 07/09/2005 Palpitations [R00.2] 04/22/2006 10/26/2014 INSOMNIA NOS [G47.00] 05/24/2006 VENOUS INSUFFICIENCY NOS [I87.2] 05/24/2006 BRONCHIECTASIS W/O ACUTE EXACERBATN [J47.9] 10/04/2008 Impaired fasting glucose [R73.01] 12/05/2010 Cholecystitis with cholelithiasis [K80.10] 04/08/2013 10/26/2014 Tobacco use [Z72.0] 10/26/2014 Nocturnal oxygen desaturation [G47.34] 10/26/2014 Family history of colon cancer [Z80.0] 11/09/2014 Primary insomnia [F51.01] 11/26/2015 Anxiety [F41.9] 02/10/2018 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 Chest pain [R07.9] 12/01/2021 Mixed hyperlipidemia [E78.2] 09/20/2023 Class 2 severe obesity due to excess calories w*09/24/2023 Obesity, Class I, BMI 30-34.9 [E66.9] 10/19/2023 Encounter Status:Closed by JOJO CASTANEDA on 12/20/23 [facility] [place] 12-02-2023 CNPN Telephone (PULMWS) -------- FRANCIS DIEZ ([id number]) 1965 F Date Time Provider Department 12/02/23 [facility]NAS During your visit today, we recorded the following information about you: Heather Freeman MA 12/02/2023 12:36 PM Signed Received fax from [employer] that they have questions about the orders. Orders were sent 11/08, but were apparently unable to reach the patient until today. Faxed the office note and Oximetry with ambulation. Will call and speak with rep once they have received that info to confirm they have everything they need. CARIE Flores Laurie, MA 12/02/2023 1:25 PM Signed I spoke with [place] at [facility] She states that the info that I faxed today has not yet been uploaded, but she will make a note that they are to contact us [facility] if any additional info is needed to expedite the patients receipt of Oxygen. CARIE Flores Tayler, [place] 12/02/2023 2:51 PM Signed Received phone call from [employer]. Requesting order for O2 concentrator with portable tanks and liter flow along with BELEN note and testing faxed to [phone]. Rosi Guaman LPN 12/02/2023 3:41 PM Signed Received fax from [facility]. [employer] had left multiple messages and sent a letter to patient. Patient called them this morning. Fax available for Florina Arenas PA-C to review regarding overnight pox order. The overnight POX order is scripted with 2 L, the patient does not currently have O2 in the home. They request order to be clarified. JAMES Jenkins Jennifer M, PA-C 12/02/2023 3:52 PM Signed I am so confused. At her BELEN with me on 11/08 she said she was wearing supplemental oxygen as needed and had a concentrator in the home, but just needed portables. I can drop an order for a concentrator. I will not be back in the [place] office until December 13. Will you print it off and FAX it please? Rosi Casanova LPN 12/02/2023 4:44 PM Addendum Called patient. Verified name and date of . Patient denies having Oxygen in her home. States she had been staying with her daughter and had been using a oxygen concentrator that was at her daughters home. JAMES Jenkins Kimberly, LPN 12/03/2023 10:01 AM Signed Faxed orders for Oxygen for home and portable oxygen concentrator to [facility]. JAMES Jenkins Kimberly, LPN 12/03/2023 10:16 AM Signed Faxed BELEN and testing to [facility]. Allergies As of Date: 12/02/2023 Noted Allergy Reaction BENADRYL (DIPHENHYDRAMINE HCL) 11/13/2014 12 - Shortness of Breath Comments: She is not sure of the reaction. Was given it in the ER years ago. 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 - wobjfxsayjy-qcbwkewrc-ig lanter (TRELEGY ELLIPTA) 100-62.5-25 mcg inhalation powder Inhale 1 Puff as instructed once daily. - DULoxetine (CYMBALTA) 30 mg capsule Take 1 capsule by mouth once daily. - cyclobenzaprine (FLEXERIL) 10 mg tablet Take 1 tablet by mouth at bedtime as needed for muscle spasm or pain. - spironolactone (ALDACTONE) 25 mg tablet Take 1 tablet by mouth once daily. - buPROPion XL (WELLBUTRIN XL) 300 mg 24 hr tablet Take 1 tablet by mouth once daily. - albuterol (PROVENTIL) 2.5 mg /3 mL (0.083 %) nebulizer solution Use 3 mL via nebulizer every 4 hours as needed for wheezing/shortness of breath. J44.9 - ipratropium (ATROVENT) 0.02 % nebulizer solution Use 2.5 mL via nebulizer four times a day as needed. OVER 5-15 MINUTES FOR WHEEZING OR SHORTNESS OF BREATH J44.9 - furosemide (LASIX) 40 mg tablet TAKE 1 TABLET BY MOUTH ONCE DAILY - potassium chloride SR (MICRO-K) 10 mEq CR capsule TAKE 1 CAPSULE BY MOUTH 3 TIMES DAILY - insulin needles, DISPOSABLE, (PEN NEEDLE) 31 gauge x 5/16 Use one needle per dose. 1 per day. - albuterol HFA (VENTOLIN HFA) 90 mcg/actuation inhaler Inhale 2 Puffs as instructed every 4 hours as needed for wheezing/shortness of breath. - rosuvastatin (CRESTOR) 5 mg tablet Take 1 tablet by mouth daily at bedtime. - traZODone (DESYREL) 100 mg tablet TAKE 3 TABLETS EVERY DAY - fluticasone (FLONASE) 50 mcg/actuation nasal spray Use 2 Sprays in each nostril once daily. ADMINISTER 2 SPRAYS EACH NOSTRIL DAILY, RINSE MOUTH OUT AFTER USE. - nitroglycerin sublingual (NITROQUICK) 0.4 mg SL tablet Dissolve 1 tablet under the tongue as needed. FOR CHEST PAIN. IF NO RELIEF CALL 911 - COMPOUNDED PRESCRIPTION Oxygen 2L at night and as needed - COMPOUNDED PRESCRIPTION Nebulizer machine DX: 496/143.90 Facility-Administered Medicatio (more content not included)... Normal [facility] OXIMETRY WITH AMBULATIONon 0 11-09-2023 [facility] XR Chest PA and Lateralon IMPRESSION: Overall findings unchanged. Tire Buffer: JIHAN Transcribe Date/Time: Oct 15 2023 9:11A Dictated by : GIANLUCA KHANNA MD This examination was interpreted and the report reviewed and electronically signed by: GIANLUCA KHANNA MD on Oct 15 2023 9:13AM [facility] DIVISION OF RADIOLOGY * * *Final Report* * * DATE OF EXAM: Oct 14 2023 3:19PM WOX 5291 - XR CHEST 2V FRONTAL/LAT / PROCEDURE REASON: multiple diagnoses * * * * Physician Interpretation * * * * EXAMINATION: CHEST RADIOGRAPH (2 VIEW FRONTAL & LATERAL) CLINICAL HISTORY: Pulmonary infiltrates History of recent pneumonia MQ: XC2_6 EXAM DATE/TIME: 10/14/2023 3:19 PM COMPARISON: Chest x-ray on 09/03/2023 RESULT: Lines, tubes, and devices: None. Lungs and pleura: There are postoperative changes in the left lung, with significant elevation of the left hemidiaphragm. Associated pulmonary infiltrates versus atelectasis seen in the left lung. No new consolidations visualized. No visible masses. No pleural effusions or pneumothorax. Cardiomediastinal silhouette: Difficult to evaluate cardiomediastinal silhouette however grossly unchanged. Bones and soft tissues: There are degenerative changes in the spine. DIVISION OF RADIOLOGY Provider, [facility] - 10/15/2023 * * *Final Report* * * DATE OF EXAM: Oct 14 2023 3:19PM WOX 5291 - XR CHEST 2V FRONTAL/LAT / PROCEDURE REASON: multiple diagnoses * * * * Physician Interpretation * * * * EXAMINATION: CHEST RADIOGRAPH (2 VIEW FRONTAL & LATERAL) CLINICAL HISTORY: Pulmonary infiltrates History of recent pneumonia MQ: XC2_6 EXAM DATE/TIME: 10/14/2023 3:19 PM COMPARISON: Chest x-ray on 09/03/2023 RESULT: Lines, tubes, and devices: None. Lungs and pleura: There are postoperative changes in the left lung, with significant elevation of the left hemidiaphragm. Associated pulmonary infiltrates versus atelectasis seen in the left lung. No new consolidations visualized. No visible masses. No pleural effusions or pneumothorax. Cardiomediastinal silhouette: Difficult to evaluate cardiomediastinal silhouette however grossly unchanged. Bones and soft tissues: There are degenerative changes in the spine. IMPRESSION IMPRESSION: Overall findings unchanged. Tire Buffer: PSCB Transcribe Date/Time: Oct 15 2023 9:11A Dictated by : GIANLUCA KHANNA MD This examination was interpreted and the report reviewed and electronically signed by: GIANLUCA KHANNA MD on Oct 15 2023 9:13AM EST [facility] XR Chest PA and LateralOrder ed By: [facility]cf Provider on 10-15-2023 [facility] XR Chest PA and Lateralon Radiology Study observation (narrative) [facility] No Panel Informationon 09-28 LOWEST T-SCORE -1.9 [facility] XR Lumbar spine 3 Viewson IMPRESSION: Lumbar s pine degenerative changes as described above. Tire Buffer: PSCB Transcribe Date/Time: Sep 20 2023 8:46A Dictated by : GIANLUCA KHANNA MD This examination was interpreted and the report reviewed and electronically signed by: GIANLUCA KHANNA MD on Sep 20 2023 8:50AM EST DIVISION OF RADIOLOGY * * *Final Report* * * DATE OF EXAM: Sep 17 2023 1:33PM WOX 5228 - XR LUMBAR 3V AP/LAT/L5-S1 / PROCEDURE REASON: multiple diagnoses * * * * Physician Interpretation * * * * EXAM TITLE: XR LUMBAR 3V AP/LAT/L5-S1 EXAM DATE/TIME: 09/17/2023 1:33 PM COMPARISON: None. CLINICAL INDICATION/HISTORY: Low back pain. TECHNIQUE: AP, lateral and cone down lateral views of the lumbar spine are presented. FINDINGS: There are five pio-hyv-pznjhnm lumbar vertebrae. No fracture or subluxations are noted. The disc spaces are preserved. There is mild osteophyte formation, with facet arthrosis in the lower lumbar spine. The bones are somewhat osteopenic. Others: Degenerative changes in the visualized lower thoracic spine. There are vascular calcifications. DIVISION OF RADIOLOGY Provider, Elida Drake - 09/20/2023 * * *Final Report* * * DATE OF EXAM: Sep 17 2023 1:33PM WOX 5228 - XR LUMBAR 3V AP/LAT/L5-S1 / PROCEDURE REASON: multiple diagnoses * * * * Physician Interpretation * * * * EXAM TITLE: XR LUMBAR 3V AP/LAT/L5-S1 EXAM DATE/TIME: 09/17/2023 1:33 PM COMPARISON: None. CLINICAL INDICATION/HISTORY: Low back pain. TECHNIQUE: AP, lateral and cone down lateral views of the lumbar spine are presented. FINDINGS: There are five hix-vis-jovbrow lumbar vertebrae. No fracture or subluxations are noted. The disc spaces are preserved. There is mild osteophyte formation, with facet arthrosis in the lower lumbar spine. The bones are somewhat osteopenic. Others: Degenerative changes in the visualized lower thoracic spine. There are vascular calcifications. IMPRESSION IMPRESSION: Lumbar spine degenerative changes as described above. Tire Buffer: PSCB Transcribe Date/Time: Sep 20 2023 8:46A Dictated by : GIANLUCA KHANNA MD This examination was interpreted and the report reviewed and electronically signed by: GIANLUCA KHANNA MD on Sep 20 2023 8:50AM EST [facility] XR Lumbar spine 3 ViewsOrder ed By: Ccf Provider on 09-20-2023 [facility] XR Lumbar spine 3 Viewson Radiology Study observation (narrative) [facility] XR Chest PA and LateralOrder ed By: [facility] Provider on 09-03-2023 Interpretation and review of laboratory results Abnormal [facility] Radiology Result ACTIONABLE Abnormal [facility] Comment on above: This report contains an incidental or actionable finding. This finding may be a new finding separate from the reason your provider ordered the imaging test or it may be an already known finding that needs additional or continued follow-up. Because of this incidental or actionable finding, you may need another test (imaging or a different type of test). Please contact your provider for the next steps. [facility] XR Chest PA and Lateralon IMPRESSION: Mild patchy airspace opacities right lower lung may represent atelectasis or developing infiltrates. Recommend follow-up. ACTIONABLE RESULT: FOLLOW-UP Acuity: Actionable Findings: Thoracic-Other Routing Code: CT_1 Recommendation: XR Chest 2 view Time Frame: At the discretion of the clinical team. COMMUNICATION: Results will be communicated with the ordering provider via [employer] staff message or phone message by [facility] within 2 business days of report finalization. --END OF FINDING-- Algorithms for management of incidental imaging findings can be found on the [facility] Intranet Sharepoint site at: [email or web address] naging%20Incidental%20Fi ndi ngs%20at%20Imaging/Forms [email or web address] Tire Buffer: JIHAN Transcribe Date/Time: Sep 03 2023 2:16P Dictated by : ANGEL HAGAN MD This examination was interpreted and the report reviewed and electronically signed by: ANGEL HAGAN MD on Sep 03 2023 2:17PM [facility] DIVISION OF RADIOLOGY * * *Final Report* * * DATE OF EXAM: Sep 03 2023 11:55AM WOX 5291 - XR CHEST 2V FRONTAL/LAT / PROCEDURE REASON: multiple diagnoses * * * * Physician Interpretation * * * * EXAMINATION: CHEST RADIOGRAPH (2 VIEW FRONTAL & LATERAL) CLINICAL HISTORY: Wheezing Acute cough MQ: XC2_6 EXAM DATE/TIME: 09/03/2023 11:55 AM COMPARISON: 12/10/2022 RESULT: Lines, tubes, and devices: None. Lungs and pleura: Postsurgical changes with moderate elevation of the left hemidiaphragm, redemonstrated. Patchy airspace opacities right lower lung. No pleural effusion or pneumothorax. Cardiomediastinal silhouette: Stable cardiomediastinal silhouette. Bones and soft tissues: Degenerative changes are present within the thoracic spine. DIVISION OF RADIOLOGY Provider, [facility] - 09/03/2023 * * *Final Report* * * DATE OF EXAM: Sep 03 2023 11:55AM WOX 5291 - XR CHEST 2V FRONTAL/LAT / PROCEDURE REASON: multiple diagnoses * * * * Physician Interpretation * * * * EXAMINATION: CHEST RADIOGRAPH (2 VIEW FRONTAL & LATERAL) CLINICAL HISTORY: Wheezing Acute cough MQ: XC2_6 EXAM DATE/TIME: 09/03/2023 11:55 AM COMPARISON: 12/10/2022 RESULT: Lines, tubes, and devices: None. Lungs and pleura: Postsurgical changes with moderate elevation of the left hemidiaphragm, redemonstrated. Patchy airspace opacities right lower lung. No pleural effusion or pneumothorax. Cardiomediastinal silhouette: Stable cardiomediastinal silhouette. Bones and soft tissues: Degenerative changes are present within the thoracic spine. IMPRESSION IMPRESSION: Mild patchy airspace opacities right lower lung may represent atelectasis or developing infiltrates. Recommend follow-up. ACTIONABLE RESULT: FOLLOW-UP Acuity: Actionable Findings: Thoracic-Other Routing Code: CT_1 Recommendation: XR Chest 2 view Time Frame: At the discretion of the clinical team. COMMUNICATION: Results will be communicated with the ordering provider via [employer] staff message or phone message by [facility] within 2 business days of report finalization. --END OF FINDING-- Algorithms for management of incidental imaging findings can be found on the [facility] Intranet Sharepoint site at: [email or web address] naging%20Incidental%20Fi ndi ngs%20at%20Imaging/Forms /[email or web address].aspx Tire Buffer: JIHAN Transcribe Date/Time: Sep 03 2023 2:16P Dictated by : ANGEL HAGAN MD This examination was interpreted and the report reviewed and electronically signed by: ANGEL HAGAN MD on Sep 03 2023 2:17PM [facility] Radiology Study observation (narrative) [facility] [place] 03-01-2023 GAURANG Telephone (SELMA ) -------- FRANCIS DIEZ ([id number]) 1965 F Date Time Provider Department 03/01/23 FELICITY FORREST During your visit today, we recorded the following information about you: Florina Gallegos LPN 03/01/2023 2:48 PM Signed ----- Message from Felicity Forrest APRN.PLANOGRAPH OPERATOR sent at 03/01/2023 2:41 PM EDT ----- Please call patient and notify her lab results. BMP is stable. Thank you! Florina Gallegos LPN 03/01/2023 2:50 PM Signed Voicemail msg left for patient to return call to [facility] to review test results. Office phone number provided. JAMES Iniguez Jennifer, LPN 03/02/2023 8:41 AM Signed Voicemail msg left for patient to return call to [facility] to review test results. Office phone number provided. JAMES Iniguez Jennifer, LPN 03/03/2023 9:47 AM Signed Voicemail msg left for patient to return call to [facility] to review test results. Office phone number provided. Letter and MyChart msg sent to patient as we are unable to reach by phone. JAMES Iniguez Jennifer, LPN 03/03/2023 11:41 AM Signed Spoke with patient about test results. Patient verbalizes understanding. Florina Gallegos LPN Allergies As of Date: 03/01/2023 Noted Allergy Reaction BENADRYL (DIPHENHYDRAMINE HCL) 11/13/2014 12 - Shortness of Breath Comments: She is not sure of the reaction. Was given it in the ER years ago. environmental [Other] 12/30/2010 12 - Shortness of Breath Comments: pollen PENICILLINS 09/01/2010 4 - Hives Date Reviewed: 03/01/2023 Reviewed by: Inna Chaudhry, RT(R) - Partially Assessed Reason for Visit: Results [95] Prescriptions as of 05/17/2023 - LORazepam (ATIVAN) 0.5 mg Take 0.5 tablets by mouth once daily as needed for up to 30 days. - liraglutide (VICTOZA) 0.6 mg/ 0.1 ml subcutaneous pen injector Inject 1.8 mg subcutaneously once daily. - insulin needles, DISPOSABLE, (PEN NEEDLE) 31 gauge x 5/16 Use one needle per dose. 1 per day. - spironolactone (ALDACTONE) 25 mg tablet Take 1 tablet by mouth once daily. - potassium chloride SR (MICRO-K) 10 mEq CR capsule Take 1 capsule by mouth three times daily. - furosemide (LASIX) 40 mg tablet Take 1 tablet by mouth once daily. - nicotine (NICODERM CQ) 14 mg/24 hr Apply 1 Patch as directed every 24 hours. - nicotine (NICODERM CQ) 7 mg/24 hr Apply 1 Patch as directed every 24 hours. - albuterol HFA (VENTOLIN HFA) 90 mcg/actuation inhaler Inhale 2 Puffs as instructed every 4 hours as needed for wheezing/shortness of breath. - rosuvastatin (CRESTOR) 5 mg tablet Take 1 tablet by mouth daily at bedtime. - sertraline (ZOLOFT) 50 mg tablet Take 1 tablet by mouth once daily. - traZODone (DESYREL) 100 mg tablet TAKE 3 TABLETS EVERY DAY - buPROPion XL (WELLBUTRIN XL) 300 mg 24 hr tablet Take 1 tablet by mouth once daily. - albuterol (PROVENTIL) 2.5 mg /3 mL (0.083 %) nebulizer solution Use 3 mL via nebulizer every 4 hours as needed for wheezing/shortness of breath. J44.9 - ipratropium (ATROVENT) 0.02 % nebulizer solution Use 2.5 mL via nebulizer four times daily as needed. OVER 5-15 MINUTES FOR WHEEZING OR SHORTNESS OF BREATH J44.9 - budesonide-formoterol (SYMBICORT) 160-4.5 mcg/actuation inhaler Inhale 2 Puffs as instructed twice daily. - fluticasone (FLONASE) 50 mcg/actuation nasal spray Use 2 Sprays in each nostril once daily. ADMINISTER 2 SPRAYS EACH NOSTRIL DAILY, RINSE MOUTH OUT AFTER USE. - nitroglycerin sublingual (NITROQUICK) 0.4 mg SL tablet Dissolve 1 tablet under the tongue as needed. FOR CHEST PAIN. IF NO RELIEF CALL 911 - COMPOUNDED PRESCRIPTION Oxygen 2L at night and as needed - COMPOUNDED PRESCRIPTION Nebulizer machine DX: 496/143.90 Facility-Administered Medications as of 05/17/2023 - perflutren lipid microspheres 1.3 mL in NaCl (PF) 0.9% 10 mL injection (DEFINITY) - sodium chloride 0.9 % (flush) 10 mL (BD POSIFLUSH) Problem List As Of Date 03/01/2023 Noted Resolved COPD with chronic bronchitis (HCC) [J44.9] 07/08/2005 Essential hypertension [I10] 07/08/2005 Unspecified asthma(493.90) [J45.909] 07/08/2005 11/26/2014 HYPOPOTASSEMIA [E87.6] 07/09/2005 Major depressive disorder [F32.9] 07/09/2005 Palpitations [R00.2] 04/22/2006 10/26/2014 INSOMNIA NOS [G47.00] 05/24/2006 VENOUS INSUFFICIENCY NOS [I87.2] 05/24/2006 BRONCHIECTASIS W/O ACUTE EXACERBATN [J47.9] 10/04/2008 Impaired fasting glucose [R73.01] 12/05/2010 Cholecystitis with cholelithiasis [K80.10] 04/08/2013 10/26/2014 Tobacco use [Z72.0] 10/26/2014 Nocturnal oxygen desaturation [G47.34] 10/26/2014 Family history of colon cancer [Z80.0] 11/09/2014 Primary insomnia [F51.01] 11/26/2015 Anxiety [F41.9] 02/10/2018 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 Chest pain [R07.9] 12/01/2021 Encounter Status:Closed by FLORINA GALLEGOS on 05/17/23 [facility] NM CARDIAC PERF STRESS/PHARM on 03-01-2023 [facility] ZACKERY DIAG W AMEENA LEFTon 01-26 [facility] US BREAST LTD LEFTon 023 [facility] CT LUNG SCREEN WO IVCONon [facility] OXIMETRY WITH AMBULATIONon 0 12-24-2022 [facility] Abdomen/Pelvis W IV Cont ONL Yon 12-20-2022 Abdomen/Pelvis W IV Cont ONLY [facility] Imaging Services [address] [place] [address] Abdomen/Pelvis W IV Cont ONLY MR#: [id number] Acct: [id number] Name: FRNACIS DIEZ Rep #: [id number] : 1965 F 57 From: Negrito Hinds MD PCP: Reji Bruno, INTERPRETER-C Status: REG ER Study: Abdomen/Pelvis W IV Cont ONLY Date of Exam: Exam# [id number] Ordering Dr: Heriberto Gill MD STUDY: CT ABDOMEN AND PELVIS WITH CONTRAST REASON FOR EXAM: Female, 57 years old. LLQ abd pain RADIATION DOSAGE (If Supplied By Facility): CTDIvol = ( 21.67 ) mGy, DLP = ( 1243.11 ) mGycm TECHNIQUE: Transaxial images were obtained from the dome of the diaphragm to the symphysis pubis without oral contrast. IV 100mL Isovue-370 was administered. Sagittal and coronal images were reconstructed. Individualized dose optimization techniques were used for this CT. COMPARISON: None. FINDINGS: There is elevation of the left hemidiaphragm with lower lung atelectasis. The visualized portions of the heart are within normal limits. Normal liver. There is non-visualization of the gallbladder, which may be secondary to either contraction or a prior cholecystectomy. Normal spleen. Normal pancreas. There is left adrenal enlargement. Normal right kidney. Normal left kidney. Normal visualized stomach. Normal small intestine. There is diverticulosis, with thickening of the descending colon wall, and pericolonic inflammation changes consistent with acute diverticulitis. The appendix is visualized and appears normal. There is diffuse atherosclerotic calcification of the abdominal aorta, without a demonstrated aneurysm. Normal inferior vena cava. Normal retroperitoneum. Normal urinary bladder. There is absence of the uterus consistent with a prior hysterectomy. There is no free fluid in the abdomen or pelvis. Normal abdominal wall. There are diffuse degenerative changes of the visualized lumbar spine. CT/Abdomen/Pelvis W IV Cont ONLY IMPRESSION: Acute diverticulitis. No obstruction or abscess. Electronically Signed: Negrito Hinds MD at 14:26 EDT , CC: TIFFANIE Carr; Dr. Heriberto Gill MD Tire Buffer: Signed Normal [facility] Absolute lymphocyte countOrd ered By: Dr. Gill on 12-20-2022 Lymphocytes Auto (Unsp spec) [#/Vol] 2.38 10*3/uL 0.83-4.51 [facility] Automated blood hematocrit ( percentage)Ordered By: Dr. Gill on 12-20-2022 Hematocrit (Bld) [Volume fraction] 49.6 % High 37-47 [facility] Comment on above: Performed By: #### L 100.0100, L500.2500 #### [facility] [address] [place], [address] Basic Metabolic Profile (BMP )on 12-20-2022 BUN/CRE 17.9 RATIO Normal 10-20 [facility] Comment on above: Performed By: #### L 100.0100, L500.2500 #### [facility] [address] [place], [address] CA,Total 9.2 mg/dL Normal 8.5-10.1 [facility] Comment on above: Performed By: #### L 100.0100, L500.2500 #### [facility] [address] [place], [address] EST GFR - AA 64 mL/min Normal >60 [facility] Comment on above: Result Comment: Afri can Citizen Of [place] GFR Calc Performed By: #### L 100.0100, L500.2500 #### [facility] [address] [place], [address] GAP 4 Low 5-15 [facility] Comment on above: Performed By: #### L 100.0100, L500.2500 #### [facility] [address] [place], [address] GFR/1.73 sq M.predicted among non-blacks MDRD (S/P/Bld) [Vol rate/Area] 53 mL/min/{1.73_m2} Low >60 [facility] Comment on above: Result Comment: Non- GFR Calc Performed By: #### L 100.0100, L500.2500 #### [facility] [address] [place], [address] Basic Metabolic Profile (BMP )Ordered By: Dr. Gill on 12-20-2022 CO2 [Moles/Vol] 34.0 mmol/L High 21.0-32.0 [facility] Comment on above: Performed By: #### L 100.0100, L500.2500 #### [facility] [address] [place], [address] Basophil percentageOrdered B y: Dr. Gill on 12-20-2022 Chloride [Moles/Vol] 100 mmol/L Normal 98-107 [facility] Comment on above: Performed By: #### L 100.0100, L500.2500 #### [facility] [address] [place], [address] Glucose [Mass/Vol] 139 mg/dL High 74-106 [facility] Comment on above: Fasting Glucose resu lt greater than or equal to 126 mg/dL suggests DIABETES MELLITUS per A.D.A. criteria. Result Comment: Fast ing Glucose result greater than or equal to 126 mg/dL suggests DIABETES MELLITUS per A.D.A. criteria. Performed By: #### L 100.0100, L500.2500 #### [facility] [address] [place], [address] Potassium [Moles/Vol] 2.9 mmol/L Low 3.5-5.1 [facility] Comment on above: Slight Hemolysis, Re sult may be falsely increased. Result Comment: Slig ht Hemolysis, Result may be falsely increased. Performed By: #### L 100.0100, L500.2500 #### [facility] [address] [place], [address] Sodium [Moles/Vol] 138 mmol/L Normal 136-145 [facility] Comment on above: Performed By: #### L 100.0100, L500.2500 #### [facility] [address] [place], [address] Basophils/100 WBC (Bld) 0.6 % Normal 0-1 [facility] Comment on above: Performed By: #### L 100.0100, L500.2500 #### [facility] [address] [place], [address] Eosinophils/100 WBC (Bld) 4.4 % Normal 0-5 [facility] Comment on above: Performed By: #### L 100.0100, L500.2500 #### [facility] [address] [place], [address] Neutrophils/100 WBC (Bld) 66.9 % Normal 47-70 [facility] Comment on above: Performed By: #### L 100.0100, L500.2500 #### [facility] [address] [place], [address] WBC (Bld) [#/Vol] 11.5 10*3/uL High 4.4-11.0 [facility] Comment on above: Performed By: #### L 100.0100, L500.2500 #### [facility] [address] [place], [address] Basophil percentage 25-50 SEEN /hpf 0-5 [facility] Neutrophils (Bld) [#/Vol] 7.7 10*3/uL 2.0-7.7 [facility] Bilirubin Test strip Ql (U)O rdered By: Dr. Gill on 12-20-2022 Bilirubin Ql (U) 1 mg/dL Negative [facility] Comment on above: COLOR OF URINE MAY A FFECT DIPSTICK RESULTS. Blood erythrocytes count (nu mber/volume)Ordered By: Dr. Gill on 12-20-2022 RBC (Bld) [#/Vol] 5.35 10*6/uL Normal 4.2-5.4 [facility] Comment on above: Performed By: #### L 100.0100, L500.2500 #### [facility] [address] [place], [address] Blood hemoglobin measurement (mass/volume)Ordered By: Dr. Gill on 12-20-2022 Hemoglobin (Bld) [Mass/Vol] 16.6 g/dL High 12.0-15.0 [facility] Comment on above: Performed By: #### L 100.0100, L500.2500 #### [facility] [address] [place], [address] Blood lymphocytes/100 leukoc ytesOrdered By: Dr. Gill on 12-20-2022 Lymphocytes/100 WBC (Bld) 20.7 % Normal 19-41 [facility] Comment on above: Performed By: #### L 100.0100, L500.2500 #### [facility] [address] [place], [address] Blood monocytes/100 leukocyt esOrdered By: Dr. Gill on 12-20-2022 Monocytes/100 WBC (Bld) 7.1 % Normal 0-10 [facility] Comment on above: Performed By: #### L 100.0100, L500.2500 #### [facility] [address] [place], [address] Blood platelet mean volumeOr dered By: Dr. Gill on 12-20-2022 Platelet mean volume (Bld) [Entitic vol] 9.2 fL Normal 6.2-12.0 [facility] Comment on above: Performed By: #### L 100.0100, L500.2500 #### [facility] [address] [place], [address] CBC W/Diff, Automatedon 04-3 Absolute Lymph 2.38 X10 3/uL Normal 0.83-4.51 [facility] Comment on above: Performed By: #### L 100.0100, L500.2500 #### [facility] [address] [place], [address] Absolute Neut 7.7 X10 3/uL Normal 2.0-7.7 [facility] Comment on above: Performed By: #### L 100.0100, L500.2500 #### [facility] [address] [place], [address] IG% 0.300 Normal 0.0-0.9 [facility] Comment on above: Result Comment: IG% - Immature Granulocytes (promyelocytes, myelocytes and metamyelocytes) > 1% indicates that a LEFT SHIFT is Present. Performed By: #### L 100.0100, L500.2500 #### [facility] [address] [place], [address] Nucleated RBC (Bld) [#/Vol] 0 10*3/uL Normal 0-5 [facility] Comment on above: Performed By: #### L 100.0100, L500.2500 #### [facility] [address] [place], [address] RDW SD 44.9 fl High 35.1-43.9 [facility] Comment on above: Performed By: #### L 100.0100, L500.2500 #### [facility] [address] [place], [address] CBC W/Diff, AutomatedOrdered By: Dr. Gill on 12-20-2022 Erythrocyte distribution width (RBC) [Ratio] 13.1 % Normal 11.6-14.6 [facility] Comment on above: Performed By: #### L 100.0100, L500.2500 #### [facility] [address] [place], [address] MCH (RBC) [Entitic mass] 31.0 pg Normal 27.0-32.0 [facility] Comment on above: Performed By: #### L 100.0100, L500.2500 #### [facility] [address] [facility] [place], [address] Determination of erythrocyte mean corpuscular volume (MCV)Ordered By: Dr. Gill on 12-20-2022 MCV (RBC) [Entitic vol] 92.7 fL Normal 81-99 [facility] Comment on above: Performed By: #### L 100.0100, L500.2500 #### [facility] [address] [place], [address] Emergency Department Summary on 12-20-2022 Emergency Department Summary [facility] Medical Records Department [address] [place] [address] Emergency Department Summary 12/20/22 MR#: [id number] Acct: [id number] Name: FRANCIS DIEZ Rep #: [id number] : 1965 57 From: Sal MORENO PCP: TIFFANIE Orellana Status:DEP ER Location: ED HPI History of Present Illness Chief Complaint: Abd Pain Narrative Narrative: Patient is a 57-year-old female with history of COPD, tobacco history, hypertension who presents to the emergency department with 2 weeks of left lower quadrant abdominal pain. Patient states that has been ongoing for the last 2 weeks intermittently, today, pain was the worst in her left lower quadrant feeling like pressure and burning. She did have 2 episodes of vomitus. She denies any change in her bowel habits, denies any urinary symptoms. Denies any fever or chills. [facility] Medical History (Updated 12/20/22 @ 14:43 by TIFFANIE Ornelas) COPD (chronic obstructive pulmonary disease) Home Medications albuterol sulfate 2.5 mg/3 mL (0.083 %) solution for nebulization 2.5 mg inhalation Q4H PRN PRN wheezing/sob 12/20/22 [History Last Taken Unknown] albuterol sulfate 90 mcg/actuation aerosol inhaler 90 mcg inhalation Q4H PRN PRN wheezing/sob 12/20/22 [History Last Taken Unknown] budesonide-formoterol HFA 160 mcg-4.5 mcg/actuation aerosol inhaler (Symbicort) 2 inh inhalation BID 12/20/22 [History Last Taken Unknown] bupropion HCl 300 mg 24 hr tablet, extended release 300 mg PO DAILY 12/20/22 [History Last Taken Unknown] ciprofloxacin HCl 500 mg tablet (Cipro) 500 mg PO BID #20 tabs 12/20/22 [Rx Last Taken Unknown] fluticasone propionate 50 mcg/actuation nasal spray,suspension 2 spray intranasal DAILY 12/20/22 [History Last Taken Unknown] furosemide 20 mg tablet 20 mg PO DAILY 12/20/22 [History Last Taken Unknown] hydrochlorothiazide 25 mg tablet 25 mg PO DAILY 12/20/22 [History Last Taken Unknown] ipratropium bromide 0.02 % solution for inhalation 2.5 ml inhalation Q6H PRN PRN wheezing/sob 12/20/22 [History Last Taken Unknown] lorazepam 0.5 mg tablet 0.5 mg PO DAILY 12/20/22 [History Last Taken Unknown] metronidazole 500 mg tablet 500 mg PO TID #30 tabs 12/20/22 [Rx Last Taken Unknown] nitroglycerin 0.4 mg sublingual tablet 0.4 mg sublingual Q5M PRN Chest Pain 12/20/22 [History Last Taken Unknown] ondansetron 4 mg disintegrating tablet 4 mg PO Q8H PRN PRN Nausea #10 tabs 12/20/22 [Rx Last Taken Unknown] oxycodone-acetaminophen 5 mg-325 mg tablet (Percocet) 1 tab PO Q8H PRN pain 3 days #10 tabs 12/20/22 [Rx Last Taken Unknown] potassium chloride 10 mEq capsule,extended release 10 meq PO BID 12/20/22 [History Last Taken Unknown] rosuvastatin 5 mg tablet 5 mg PO QHS 12/20/22 [History Last Taken Unknown] sertraline 50 mg tablet 50 mg PO DAILY 12/20/22 [History Last Taken Unknown] trazodone 100 mg tablet 300 mg PO DAILY 12/20/22 [History Last Taken Unknown] Allergy/AdvReac Type Severity Reaction Status Date / Time diphenhydramine HCl Allergy Anaphylaxis Verified 12/20/22 12:48 [From Benadryl] Penicillins Allergy Rash Verified 12/20/22 12:48 Social History Smoking Status: Current every day smoker tobacco type: cigarettes ROS ROS ED ROS Narrative Constitutional: Negative for fever, chills, weight loss, weakness Eyes: Negative for vision loss, vision change, double vision ENT: Negative for any sore throat, ear pain, congestion Cardiovascular: Negative for any chest pain, tightness, palpitations Respiratory: Negative for any cough, sputum production, hemoptysis, dyspnea, dyspnea on exertion, orthopnea Gastrointestinal: Negative for any a diarrhea, constipation, blood in stool, blood in vomit. Positive left lower quadrant abdominal pain, nausea, vomiting : Negative for any urinary frequency, dysuria, retention, blood in urine Muscle skeletal: Negative for any muscle joint pain, stiffness, myalgias, arthralgias, neck pain, back pain Neurological: Negative for any headache, syncope, numbness or tingling, dizziness Skin: Negative for any rashes, lumps, itching, abrasions, lacerations Psychiatric: Negative for any depression, anxiety, stress, suicidal ideation, homicidal ideation Hematologic: Negative for any easy bruising, excessive bruising, easy bleeding Allergies: Negative for any eczema, hives, rash EXAM Physical Exam Narrative Exam Narrative: Vital signs reviewed. HEET: Head normocephalic atraumatic, TMs clear bilaterally. Posterior pharynx is clear, moist mucous membranes. Nares clear bilaterally. Neck: Supple with no lymphadenopathy or tenderness. No signs of meningismus, negative jolt sign. Cardiac: Regular rate and rhythm no murmurs gallops or rubs, equal peripheral pulses bilaterally. Respiratory: Lungs clear to auscultation bilaterally. No chest tenderness. Abdomen: Soft, nondistended. No abdomi (more content not included)... Normal [facility] Ketones Test strip Ql (U)Ord ered By: Dr. Gill on 12-20-2022 Ketones Ql (U) 5 mg/dl Negative [facility] - Chemistry and C hemistry - challengeOrdered By: Dr. Gill on 12-20-2022 Urea nitrogen/Creatinine [Mass ratio] 17.9 mg/mg 10-20 [facility] - Hematology and Cell countsOrdered By: Dr. Gill on 12-20-2022 Erythrocyte distribution width (RBC) [Entitic vol] 44.9 fL 35.1-43.9 [facility] Immature granulocytes/100 WBC (Bld) 0.300 % 0.0-0.9 [facility] Comment on above: IG% - Immature Granu locytes (promyelocytes, myelocytes and metamyelocytes) > 1% indicates that a LEFT SHIFT is Present. Nucleated RBC/100 WBC (Bld) [Ratio] 0 % 0-5 [facility] MCHC [Mass/volume] by Automa efrain countOrdered By: Dr. Gill on 12-20-2022 MCHC (RBC) [Mass/Vol] 33.5 g/dL Normal 32-36 [facility] Comment on above: Performed By: #### L 100.0100, L500.2500 #### [facility] [address] [place], [place], [id number] Mucus LM Ql (Urine sed)Order ed By: Dr. Gill on 12-20-2022 Mucus Ql (Urine sed) 0 SEEN /hpf [facility] Nitrite Test strip Ql (U)Ord ered By: Dr. Gill on 12-20-2022 Nitrite Ql (U) Negative Negative [facility] No Panel InformationOrdered By: Dr. Gill on 12-20-2022 Estimated GFR (MDRD) Amer 64 mL/min >60 [facility] Comment on above: GFR Calc Estimated GFR (MDRD) Non-Af Amer 53 mL/min >60 [facility] Comment on above: Non- GFR Calc Platelets bldOrdered By: Dr. Gill on 12-20-2022 Platelets (Bld) [#/Vol] 259 10*3/uL Normal 150-450 [facility] Comment on above: Performed By: #### L 100.0100, L500.2500 #### [facility] [address] [facility] [place], [place], [id number] Protein Test strip Ql (U)Ord ered By: Dr. Gill on 12-20-2022 Protein Ql (U) 30 mg/dl Negative [facility] Serum or plasma calcium nan urement (mass/volume)Ordered By: Dr. Gill on 12-20-2022 Calcium [Mass/Vol] 9.2 mg/dL 8.5-10.1 [facility] Serum or plasma creatinine m easurement (mass/volume)Ordered By: Dr. Gill on 12-20-2022 Creatinine [Mass/Vol] 1.12 mg/dL High 0.55-1.02 [facility] Comment on above: The validity of the calculated GFR & GFRAA in patients over 70 years has not been determined. Clinical correlation is essential. Result Comment: The validity of the calculated GFR GFRAA in patients over 70 years has not been determined. Clinical correlation is essential. Performed By: #### L 100.0100, L500.2500 #### [facility] [address] [place], [place], [id number] Serum or plasma urea nitroge n measurement (mass/volume)Ordered By: Dr. Gill on 12-20-2022 Urea nitrogen [Mass/Vol] 20 mg/dL High 7-18 [facility] Comment on above: Performed By: #### L 100.0100, L500.2500 #### [facility] [address] [place], [place], [id number] ([phone] Squamous epithelial cells de tection in urine sediment by light microscopyOrdered By: Dr. Gill on 12-20-2022 Epithelial cells.squamous LM Ql (Urine sed) 5-10 SEEN /hpf 5-10 [facility] Thin prep Papanicolaou smear with manual screeningOrdered By: Dr. Gill on 12-20-2022 Thin prep Papanicolaou smear with manual screening 4 5-15 [facility] Urinalysis, Completeon 12-20 BACTERIA 2+ /hpf Normal None Seen [facility] Comment on above: Order Comment: CLEAN CATCH Performed By: #### L 400.0001 #### [facility] [address] [place], [address] EPI,SQUAMOUS 5-10 SEEN Normal 5-10 [facility] Comment on above: Order Comment: CLEAN CATCH Performed By: #### L 400.0001 #### [facility] [address] [place], [address] RBC 10-25 SEEN Normal 0-5 [facility] Comment on above: Order Comment: CLEAN CATCH Performed By: #### L 400.0001 #### [facility] [address] [place], [address] WBC 25-50 SEEN Normal 0-5 [facility] Comment on above: Order Comment: CLEAN CATCH Performed By: #### L 400.0001 #### [facility] [address] [place], [place], [id number] Mucus Ql (Urine sed) 0 SEEN Normal [facility] Comment on above: Order Comment: CLEAN CATCH Performed By: #### L 400.0001 #### [facility] [address] [place], [place], [id number] Urine blood detectionOrdered By: Dr. Gill on 12-20-2022 RBC Ql (U) 250 /ul Negative [facility] RBC Ql (U) 10-25 SEEN /hpf 0-5 [facility] Urine clarityOrdered By: Dr. Gill on 12-20-2022 Clarity (U) Sl. Cloudy Clear [facility] Urine color determinationOrd ered By: Dr. Gill on 12-20-2022 Color (U) Yellow Yellow [facility] Urine glucose detectionOrder ed By: Dr. Gill on 12-20-2022 Glucose Ql (U) Normal mg/dl Normal [facility] Urine leukocyte esterase det ection by dipstickOrdered By: Dr. Gill on 12-20-2022 Leukocyte esterase Test strip Ql (U) 500 /ul Negative [facility] Urine pHOrdered By: Dr. Paulino on 12-20-2022 pH (U) 5.0 [pH] 5.0 - 8.0 [facility] Urine sediment bacteria coun t by microscopy (number/high power field)Ordered By: Dr. Gill on 12-20-2022 Bacteria LM.HPF (Urine sed) [#/Area] 2 /[HPF] None Seen [facility] Urine specific gravity measu rementOrdered By: Dr. Gill on 12-20-2022 Specific gravity (U) [Rel density] 1.020 1.002-1.030 [facility] Urobilinogen Auto test strip Ql (U)Ordered By: Dr. Gill on 12-20-2022 Urobilinogen Ql (U) 4 mg/dl Normal [facility] ZACKERY SCREENINGon 12-18-2022 [facility] XR CHEST 2V FRONTAL/LATon [facility] XR CHEST 2V FRONTAL/LATon [facility] XR Chest PA and Lateralon IMPRESSION: Small bilateral pleural fluid collections. Stable elevation of the left hemidiaphragm Tire Buffer: JIHAN Transcribe Date/Time: Nov 23 2022 3:38P Dictated by : MIKAYLA RODRIGUEZ MD This examination was interpreted and the report reviewed and electronically signed by: MIKAYLA RODRIGUEZ MD on Nov 23 2022 3:39PM [facility] DIVISION OF RADIOLOGY * * *Final Report* * * DATE OF EXAM: Nov 23 2022 9:51AM WOX 5291 - XR CHEST 2V FRONTAL/LAT / PROCEDURE REASON: multiple diagnoses * * * * Physician Interpretation * * * * EXAMINATION: CHEST RADIOGRAPH (2 VIEW FRONTAL & LATERAL) CLINICAL HISTORY: Shortness of breath COPD with exacerbation (HCC) MQ: XC2_6 EXAM DATE/TIME: 11/23/2022 9:51 AM COMPARISON: 08/19/2016 RESULT: Lines, tubes, and devices: None. Lungs and pleura: No consolidation. No lung mass. Small bilateral pleural fluid collections. No pneumothorax. Stable elevation of the left hemidiaphragm Cardiomediastinal silhouette: Stable cardiomediastinal silhouette. Bones and soft tissues: Degenerative change and scoliosis DIVISION OF RADIOLOGY Provider, [facility] - 11/23/2022 * * *Final Report* * * DATE OF EXAM: Nov 23 2022 9:51AM WOX 5291 - XR CHEST 2V FRONTAL/LAT / PROCEDURE REASON: multiple diagnoses * * * * Physician Interpretation * * * * EXAMINATION: CHEST RADIOGRAPH (2 VIEW FRONTAL & LATERAL) CLINICAL HISTORY: Shortness of breath COPD with exacerbation (HCC) MQ: XC2_6 EXAM DATE/TIME: 11/23/2022 9:51 AM COMPARISON: 08/19/2016 RESULT: Lines, tubes, and devices: None. Lungs and pleura: No consolidation. No lung mass. Small bilateral pleural fluid collections. No pneumothorax. Stable elevation of the left hemidiaphragm Cardiomediastinal silhouette: Stable cardiomediastinal silhouette. Bones and soft tissues: Degenerative change and scoliosis IMPRESSION IMPRESSION: Small bilateral pleural fluid collections. Stable elevation of the left hemidiaphragm Tire Buffer: PSCB Transcribe Date/Time: Nov 23 2022 3:38P Dictated by : MIKAYLA RODRIGUEZ MD This examination was interpreted and the report reviewed and electronically signed by: MIKAYLA RODRIGUEZ MD on Nov 23 2022 3:39PM EST [facility] Radiology Study observation (narrative) [facility] XR Chest PA and LateralOrder ed By: [facility] Provider on 11-23-2022 [facility] CBC W Auto Differential pane l (Bld)on 10-26-2022 Basophils (Bld) [#/Vol] 0.09 10*3/uL <0.11 k/uL [facility] Basophils/100 WBC (Bld) 1.1 % [facility] Differential cell count method Nom (Bld) Auto [facility] Eosinophils (Bld) [#/Vol] 0.71 10*3/uL High <0.46 k/uL [facility] Eosinophils/100 WBC (Bld) 8.6 % [facility] Erythrocyte distribution width (RBC) [Ratio] 13.0 % 11.5 - 15.0 % [facility] Hematocrit (Bld) [Volume fraction] 49.5 % High 36.0 - 46.0 % [facility] Hemoglobin (Bld) [Mass/Vol] 16.4 g/dL High 11.5 - 15.5 g/dL [facility] Immature granulocytes (Bld) [#/Vol] <0.10 k/uL [facility] Immature granulocytes/100 WBC (Bld) 0.1 % [facility] Lymphocytes (Bld) [#/Vol] 2.83 10*3/uL 1.00 - 4.00 k/uL [facility] Lymphocytes/100 WBC (Bld) 34.3 % [facility] MCH (RBC) [Entitic mass] 31.1 pg 26.0 - 34.0 pg [facility] MCHC (RBC) [Mass/Vol] 33.1 g/dL 30.5 - 36.0 g/dL [facility] MCV (RBC) [Entitic vol] 93.9 fL 80.0 - 100.0 fL [facility] Monocytes (Bld) [#/Vol] 0.49 10*3/uL <0.87 k/uL [facility] Monocytes/100 WBC (Bld) 5.9 % [facility] Neutrophils (Bld) [#/Vol] 4.13 10*3/uL 1.45 - 7.50 k/uL [facility] Neutrophils/100 WBC (Bld) 50.0 % [facility] Nucleated RBC (Bld) [#/Vol] <0.01 k/uL [facility] Nucleated RBC/100 WBC (Bld) [Ratio] 0.0 /100 WBC [facility] Platelet mean volume (Bld) [Entitic vol] 9.6 fL 9.0 - 12.7 fL [facility] Platelets (Bld) [#/Vol] 274 10*3/uL 150 - 400 k/uL [facility] RBC (Bld) [#/Vol] 5.27 10*6/uL High 3.90 - 5.2 0 m/uL [facility] WBC (Bld) [#/Vol] 8.26 10*3/uL 3.70 - 11.00 k/uL [facility] Comprehensive metabolic 2000 panelon 10-26-2022 Albumin [Mass/Vol] 4.1 g/dL 3.9 - 4.9 g/dL [facility] ALP [Catalytic activity/Vol] 47 U/L 34 - 123 U/L [facility] ALT [Catalytic activity/Vol] 22 U/L 7 - 38 U/L [facility] Anion gap [Moles/Vol] 9 mmol/L 9 - 18 mmol/L [facility] AST [Catalytic activity/Vol] 22 U/L 13 - 35 U/L [facility] Bilirubin [Mass/Vol] 0.3 mg/dL 0.2 - 1 .3 mg/dL [facility] Calcium [Mass/Vol] 10.1 mg/dL 8.5 - 10. 2 mg/dL [facility] Chloride [Moles/Vol] 99 mmol/L 97 - 10 5 mmol/L [facility] CO2 [Moles/Vol] 32 mmol/L High 22 - 30 mmol/L [facility] Creatinine [Mass/Vol] 0.99 mg/dL High 0.58 - 0.96 mg/dL [facility] Estimated Glomerular Filtration Rate 66 mL/min/1.73m >=60 mL/min/1.73 m [facility] Glucose [Mass/Vol] 101 mg/dL High 74 - 99 mg/dL [facility] Potassium [Moles/Vol] 4.0 mmol/L 3.7 - 5.1 mmol/L [facility] Protein [Mass/Vol] 6.6 g/dL 6.3 - 8.0 g/dL [facility] Sodium [Moles/Vol] 140 mmol/L 136 - 144 mmol/L [facility] Urea nitrogen [Mass/Vol] 26 mg/dL High 7 - 21 mg/dL [facility] Lipid 1996 panelon 3 Cholesterol [Mass/Vol] 222 mg/dL High <200 mg/dL [facility] Cholesterol in HDL [Mass/Vol] 64 mg/dL >39 mg/dL [facility] Cholesterol in LDL [Mass/Vol] 135 mg/dL High <100 mg/dL [facility] Cholesterol in LDL/Cholesterol in HDL [Mass ratio] 2.11 {ratio} <2.54 [facility] Cholesterol in VLDL [Mass/Vol] 23 mg/dL <30 mg/dL [facility] Cholesterol non HDL [Mass/Vol] 158 mg/dL High <130 mg/dL [facility] Cholesterol.total/Alisha sterol in HDL [Mass ratio] 3.47 {ratio} <5.10 [facility] Fasting Time 13 hrs [facility] Triglyceride [Mass/Vol] 115 mg/dL <150 mg/dL [facility] Eosinophils Auto (Bld) [#/Vo l]on 11-25-2021 Eosinophils (Bld) [#/Vol] 0.71 10*3/uL High <0.46 k/uL [facility] No Panel Informationon 11-25 [facility] XR Knee - left 4 Viewson IMPRESSION: No acute radiographic abnormalities seen in the left knee. Tire Buffer: JIHAN Transcribe Date/Time: Mar 25 2021 1:32P Dictated by : GIANLUCA KHANNA MD This examination was interpreted and the report reviewed and electronically signed by: GIANLUCA KHANNA MD on Mar 25 2021 1:35PM [facility] DIVISION OF RADIOLOGY * * *Final Report* * * DATE OF EXAM: Mar 25 2021 11:39AM WOX 5202 - XR KNEE 4V AP/PA BOTH+LAT/VIJAY LT / PROCEDURE REASON: multiple diagnoses * * * * Physician Interpretation * * * * EXAM TITLE: XR KNEE 4V AP/PA BOTH+LAT/VIJAY LT EXAM DATE/TIME: 03/25/2021 11:39 AM COMPARISON: None. CLINICAL INDICATION/HISTORY: Left knee pain after a fall. TECHNIQUE: AP/PA, lateral and sunrise views of the left knee are presented. FINDINGS: No acute fractures or subluxations are noted. Mild patellar enthesophyte formation noted, without obvious osteophytes. The joint spaces are well preserved. There is no evidence of joint effusion. The mineralization of the bones is normal. There is no significant soft tissue swelling. DIVISION OF RADIOLOGY Provider, [facility] - 03/25/2021 * * *Final Report* * * DATE OF EXAM: Mar 25 2021 11:39AM WOX 5202 - XR KNEE 4V AP/PA BOTH+LAT/VIJAY LT / PROCEDURE REASON: multiple diagnoses * * * * Physician Interpretation * * * * EXAM TITLE: XR KNEE 4V AP/PA BOTH+LAT/VIJAY LT EXAM DATE/TIME: 03/25/2021 11:39 AM COMPARISON: None. CLINICAL INDICATION/HISTORY: Left knee pain after a fall. TECHNIQUE: AP/PA, lateral and sunrise views of the left knee are presented. FINDINGS: No acute fractures or subluxations are noted. Mild patellar enthesophyte formation noted, without obvious osteophytes. The joint spaces are well preserved. There is no evidence of joint effusion. The mineralization of the bones is normal. There is no significant soft tissue swelling. IMPRESSION IMPRESSION: No acute radiographic abnormalities seen in the left knee. Tire Buffer: PSCB Transcribe Date/Time: Mar 25 2021 1:32P Dictated by : GIANLUCA KHANNA MD This examination was interpreted and the report reviewed and electronically signed by: GIANLUCA KHANNA MD on Mar 25 2021 1:35PM EST [facility] Radiology Study observation (narrative) Yair giron [facility] XR Knee - left 4 ViewsOrdere d By: [facility] Provider on 03-25-2021 [facility] .Auto Diffon 08-17-2017 Basophils Auto #/vol (Bld) 0.10 10 3/mcL Normal 0.00-0.19 [facility] ([place]) Comment on above: Performed By: #### G FR, LIP, CMP, CBC, ADIFF, MORPH, ANEU ####[id number] [place], [place] [address] Basophils/100 WBC Auto (Bld) 0.6 % Normal 0.0-2.5 [facility] ([place]) Comment on above: Performed By: #### G FR, LIP, CMP, CBC, ADIFF, MORPH, ANEU ####[id number] [place], [place] [address] Eosinophils 0.40 10 3/mcL Normal 0.00-0.40 [facility] ([place]) Comment on above: Performed By: #### G FR, LIP, CMP, CBC, ADIFF, MORPH, ANEU ####[id number] [place], [place] [address] Eosinophils/100 leukocytes 2.6 % Normal 0.0-7.0 [facility] ([place]) Comment on above: Performed By: #### G FR, LIP, CMP, CBC, ADIFF, MORPH, ANEU ####[id number] [place], [place] [address] Lymphocytes 2.40 10 3/mcL Normal 0.77-3.85 [facility] ([place]) Comment on above: Performed By: #### G FR, LIP, CMP, CBC, ADIFF, MORPH, ANEU ####[id number] [place], [place] [address] Lymphocytes/100 leukocytes 14.2 % Normal 10.0-50.0 [facility] ([place]) Comment on above: Performed By: #### G FR, LIP, CMP, CBC, ADIFF, MORPH, ANEU ####[id number] [place], [place] [address] Monocytes 1.40 10 3/mcL High 0.15-1.00 [facility] ([place]) Comment on above: Performed By: #### G FR, LIP, CMP, CBC, ADIFF, MORPH, ANEU ####[id number] [place], [place] [address] Monocytes/100 leukocytes 8.5 % Normal 1.7-13.0 [facility] ([place]) Comment on above: Performed By: #### G FR, LIP, CMP, CBC, ADIFF, MORPH, ANEU ####Juanjo [address] [place], [place] [address] Neutrophils/100 WBC Auto (Bld) 74.1 % Normal 37.0-80.0 [facility] ([place]) Comment on above: Performed By: #### G FR, LIP, CMP, CBC, ADIFF, MORPH, ANEU ####Juanjo [address] [place], [place] [address] .GFRon 08-17-2017 eGFR (non-black) mL/min/{1.73_m2} Normal [facility] ([place]) Comment on above: Result Comment: GFR Population mean for , Non- Americans Ages 20-29 = 116 mL/min/1.73 sq.m. Ages 30-39 = 107 mL/min/1.73 sq.m. Ages 40-49 = 99 mL/min/1.73 sq.m. Ages 50-59 = 93 mL/min/1.73 sq.m. Ages 60-69 = 85 mL/min/1.73 sq.m. Ages 70+ = 75 mL/min/1.73 sq.m.Chronic Kidney Disease: Less than 60 mL/min/1.73 square metersEnd Stage Renal Disease: Less than 15 mL/min/1.73 square meters Performed By: #### G FR, LIP, CMP, CBC, ADIFF, MORPH, ANEU ####Juanjo [address] [place], [place] [address] eGFR (non-black) 91 ml/min/1.73sqm Normal A [facility] ([place]) Comment on above: Result Comment: GFR Population mean for , Non- Americans Ages 20-29 = 116 mL/min/1.73 sq.m. Ages 30-39 = 107 mL/min/1.73 sq.m. Ages 40-49 = 99 mL/min/1.73 sq.m. Ages 50-59 = 93 mL/min/1.73 sq.m. Ages 60-69 = 85 mL/min/1.73 sq.m. Ages 70+ = 75 mL/min/1.73 sq.m.Chronic Kidney Disease: Less than 60 mL/min/1.73 square metersEnd Stage Renal Disease: Less than 15 mL/min/1.73 square meters Performed By: #### G FR, LIP, CMP, CBC, ADIFF, MORPH, ANEU ####Juanjo [address] [place], [place] [address] .Morphon 08-17-2017 Erythrocyte morphology Normal Normal [facility] ([place]) Comment on above: Performed By: #### G FR, LIP, CMP, CBC, ADIFF, MORPH, ANEU ####Juanjo [address] [place] [address] Platelets Normal Normal [facility] ([place]) Comment on above: Result Comment: Few large platelets seen Performed By: #### G FR, LIP, CMP, CBC, ADIFF, MORPH, ANEU ####Juanjo [address] [place] [address] .NEUABSon 08-17-2017 Neutrophils 12.40 10 3/mcL High 2.85-6.16 [facility] ([place]) Comment on above: Performed By: #### G FR, LIP, CMP, CBC, ADIFF, MORPH, ANEU ####Juanjo [address] [place] [address] .Urinalysis Microscopic (AO) on 08-17-2017 UA Mucous 1+ /hpf Normal [facility] ([place]) Comment on above: Performed By: #### G FR, LIP, CMP, CBC, ADIFF, MORPH, ANEU ####Juanjo [address] [place], [place] [address] UA Squam Epithelial 0-5 Abnormal None Seen [facility] ([place]) Comment on above: Performed By: #### G FR, LIP, CMP, CBC, ADIFF, MORPH, ANEU ####Juanjo [address] [place], [place] [address] UA WBC None Seen Normal None Seen [facility] ([place]) Comment on above: Performed By: #### G FR, LIP, CMP, CBC, ADIFF, MORPH, ANEU ####Juanjo [address] [place], [place] [address] Urine, erythrocytes 10-15 Abnormal None Seen [facility] ([place]) Comment on above: Performed By: #### G FR, LIP, CMP, CBC, ADIFF, MORPH, ANEU ####Juanjo [address] [place], [place] [address] CBCon 08-17-2017 Erythrocyte distribution width Auto Ratio (RBC) 13.1 % Normal 11.5-14.5 [facility] ([place]) Comment on above: Performed By: #### G FR, LIP, CMP, CBC, ADIFF, MORPH, ANEU ####Juanjo [address] [place], [place] [address] MCH 31.1 pg Normal 27.0-31.2 [facility] ([place]) Comment on above: Performed By: #### G FR, LIP, CMP, CBC, ADIFF, MORPH, ANEU ####Juanjo [address] [place], [place] [address] MCHC mass conc (RBC) 33.8 G/dL Normal 33.0-37.0 [facility] ([place]) Comment on above: Performed By: #### G FR, LIP, CMP, CBC, ADIFF, MORPH, ANEU ####Juanjo [address] [place], [place] [address] MCV 91.9 fL Normal 80.0-94.0 [facility] ([place]) Comment on above: Performed By: #### G FR, LIP, CMP, CBC, ADIFF, MORPH, ANEU ####Juanjo [address] [place], [place] [address] Platelet mean volume (PMV) 7.8 fL Normal 7.4-10.4 [facility] ([place]) Comment on above: Performed By: #### G FR, LIP, CMP, CBC, ADIFF, MORPH, ANEU ####Juanjo [address] [place], [place] [address] Platelets 231 10 3/mcL Normal 130-400 [facility] ([place]) Comment on above: Performed By: #### G FR, LIP, CMP, CBC, ADIFF, MORPH, ANEU ####Juanjo [address] [place], [place] [address] Erythrocytes (RBC) 5.32 10 6/mcL Normal 4.20-5.40 [facility] ([place]) Comment on above: Performed By: #### G FR, LIP, CMP, CBC, ADIFF, MORPH, ANEU ####Juanjo [address] [place], [place] [address] Hematocrit (HCT) 48.9 % High 37.0-47.0 [facility] ([place]) Comment on above: Performed By: #### G FR, LIP, CMP, CBC, ADIFF, MORPH, ANEU ####Juanjo [address] [place], [place] [address] Hemoglobin mass conc (Bld) 16.5 G/dL High 12.0-16.0 [facility] ([place]) Comment on above: Performed By: #### G FR, LIP, CMP, CBC, ADIFF, MORPH, ANEU ####Juanjo [address] [place], [place] [address] WBC (Leukocytes) 16.70 10 3/mcL High 4.60-10.80 [facility] ([place]) Comment on above: Performed By: #### G FR, LIP, CMP, CBC, ADIFF, MORPH, ANEU ####Juanjo [address] [place], [place] [address] CMPon 08-17-2017 Alanine aminotransferase (ALT) 14 U/L Normal 10-35 [facility] ([place]) Comment on above: Performed By: #### G FR, LIP, CMP, CBC, ADIFF, MORPH, ANEU ####Juanjo [address] [place], [place] [address] Albumin 4.1 G/dL Normal 3.5-5.0 [facility] ([place]) Comment on above: Performed By: #### G FR, LIP, CMP, CBC, ADIFF, MORPH, ANEU ####Juanjo [address] [place], [place] [address] Albumin/Globulin Ratio 1.6 {ratio} Normal 1.1-2.5 [facility] ([place]) Comment on above: Performed By: #### G FR, LIP, CMP, CBC, ADIFF, MORPH, ANEU ####Juanjo [address] [place], [place] [address] Alk Phos 53 IU/L Normal 40-135 [facility] ([place]) Comment on above: Performed By: #### G FR, LIP, CMP, CBC, ADIFF, MORPH, ANEU ####Pound [address] [place], [place] [address] Aspartate aminotransferase (AST) 14 U/L Normal 10-40 [facility] ([place]) Comment on above: Performed By: #### G FR, LIP, CMP, CBC, ADIFF, MORPH, ANEU ####Juanjo [address] [place], [place] [address] Bili Total 0.6 mg/dL Normal 0.2-1.0 [facility] ([place]) Comment on above: Performed By: #### G FR, LIP, CMP, CBC, ADIFF, MORPH, ANEU ####Pound [address] [place] [address] BUN/Creatinine Ratio 17 ratio Normal 7-27 [facility] ([place] Comment on above: Performed By: #### G FR, LIP, CMP, CBC, ADIFF, MORPH, ANEU ####Juanjo [address] [place], [place] [address] Calcium 9.4 mg/dL Normal 8.4-10.2 [facility] ([place]) Comment on above: Performed By: #### G FR, LIP, CMP, CBC, ADIFF, MORPH, ANEU ####Juanjo [address] [place], [place] [address] Chloride 100 mmol/L Normal 98-107 [facility] ([place]) Comment on above: Performed By: #### G FR, LIP, CMP, CBC, ADIFF, MORPH, ANEU ####Juanjo [address] [place], [place] [address] CO2 30 mmol/L High 22-29 [facility] ([place]) Comment on above: Performed By: #### G FR, LIP, CMP, CBC, ADIFF, MORPH, ANEU ####Juanjo [address] [place], [place] [address] Electrolyte Balance 9.0 mEq/L Normal [facility] ([place]) Comment on above: Performed By: #### G FR, LIP, CMP, CBC, ADIFF, MORPH, ANEU ####[facility] [place], [place] [address] Globulin 2.5 G/dL Normal [facility] ([place]) Comment on above: Performed By: #### G FR, LIP, CMP, CBC, ADIFF, MORPH, ANEU ####Juanjo [address] [place], [place] [address] Glucose mass conc 94 mg/dL Normal 70-105 [facility] ([place]) Comment on above: Performed By: #### G FR, LIP, CMP, CBC, ADIFF, MORPH, ANEU ####Juanjo [address] [place], [place] [address] Potassium molar conc 3.8 mmol/L Normal 3.5-5.1 [facility] ([place]) Comment on above: Performed By: #### G FR, LIP, CMP, CBC, ADIFF, MORPH, ANEU ####Juanjo [address] [place], [place] [address] Protein 6.6 G/dL Normal 6.0-8.3 [facility] ([place]) Comment on above: Performed By: #### G FR, LIP, CMP, CBC, ADIFF, MORPH, ANEU ####Juanjo [address] [place], [place] [address] Sodium 139 mmol/L Normal 136-146 [facility] ([place]) Comment on above: Performed By: #### G FR, LIP, CMP, CBC, ADIFF, MORPH, ANEU ####Juanjo [address] [place], [place] [address] Urea nitrogen 13.6 mg/dL Normal 7.0-18.0 [facility] ([place]) Comment on above: Performed By: #### G FR, LIP, CMP, CBC, ADIFF, MORPH, ANEU ####Juanjo [address] [place], [place] [address] Creatinine 0.8 mg/dL Normal 0.6-1.2 [facility] ([place]) Comment on above: Result Comment: Call ed result to Saeid08/17/2017 14:32:40 EST Performed By: #### G FR, LIP, CMP, CBC, ADIFF, MORPH, ANEU ####Juanjo [address] [place], [place] [address] CT ABD/PELVIS W/ IV CONTRAST ONLYon 08-17-2017 CT ABD/PELVIS W/ IV CONTRAST ONLY ORIGINALCT abdomen and pelvis with IV contrast HISTORY: Abdominal pain COMPARISON: None This exam was performed according to our departmental dose optimization program, and includes the following measures where applicable: automated exposure control, adjustment of the mAs and/or kVp according to patient size and/or exam, and an iterative reconstruction algorithm. There are degenerative changes noted in the spine. There is some elevation of the left hemidiaphragm. Small areas of scarring are present at the lung bases. The liver and spleen are normal. The right adrenal gland is unremarkable. There is diffuse left adrenal prominence, most compatible with hyperplasia. The pancreas and left kidney are normal. Aside from a punctate 3 mm right upper pole stone, the right kidney is unremarkable. No free air is present. There is trace pelvic fluid seen. No evidence for abscess. There is moderately prominent sigmoid diverticulosis present. There are colonic diverticula elsewhere as well. The transverse portion of the colon is abnormal, with wall thickening and hazy infiltrative increased density present. Multiple diverticula are present within this area. Series 2 image 52 shows a 1 cm ill-defined hypodensity within the wall of the transverse colon. This is compatible with a tiny intramural abscess. No other GI tract abnormality is visible. The appendix is normal. IMPRESSION: Prominent diverticulitis of the transverse portion of the colon with a tiny intramural abscess. No perforation or peritoneal abscess seen. Only trace free pelvic fluid noted. Nonobstructive punctate right nephrolithiasis, left adrenal hyperplasia. Interpreted By: Xavier Smithreliminary Report By: Xavier Smith MDElectronically Signed By: Xavier Smith MD Dictated Date: 08/17/2017 3:14:41 PM Prelim Date: 08/17/2017 3:14:41 PM Sign Date: 08/17/2017 3:18:35 PM Normal [facility] ([place]) LIPon 08-17-2017 Lipase Level 22 IU/L Normal 8-78 [facility] ([place]) Comment on above: Performed By: #### G FR, LIP, CMP, CBC, ADIFF, MORPH, ANEU ####Juanjo [address] [place], [place] [address] [facility] Note on 08-17-2017 [facility] Note Normal [facility] ([place]) Patient Summary Documentson 08-17-2017 Patient Summary Documents Normal [facility] ([place]) UAon 08-17-2017 UA Appear CLEAR [facility] ([place]) Comment on above: Performed By: #### U A, UAMICAO ####Juanjo [address] [place], [place] [address] UA Blood LARGE [facility] ([place] Comment on above: Performed By: #### U A, UAMICAO ####Juanjo [address] [place], [place] [address] UA Leuk Est Negative [facility]) Comment on above: Performed By: #### U A, UAMICAO ####Juanjo [address] [place], [place] [address] UA Nitrite Negative [facility]) Comment on above: Performed By: #### U A, UAMICAO ####Juanjo [address] [place] [address] UA pH 5.0 [facility]) Comment on above: Performed By: #### U A, UAMICAO ####Juanjo [address] [place], [place] [address] UA Protein Negative [facility] ([place] Comment on above: Performed By: #### U A, UAMICAO ####Juan[address] [place], [place] [address] UA Spec Grav 1.015 [facility] ([place] Comment on above: Performed By: #### U A, UAMICAO ####Juanjo [address] [place], [place] [address] UA Specimen Type Clean Catch [facility] ([place]) Comment on above: Performed By: #### U A, UAMICAO ####Juanjo [address] [place] [address] UA Urobilinogen 0.2 E.U./dL [facility] ([place]) Comment on above: Performed By: #### U A, UAMICAO ####Juanjo [address] [place], [place] [address] Urine, color YELLOW Normal [facility] ([place]) Comment on above: Performed By: #### U A, UAMICAO ####Juanjo [address] [place], [place] [address] Urine, glucose Negative Normal [facility] ([place]) Comment on above: Performed By: #### U A, UAMICAO ####Juanjo [address] [place], [place] [address] Urine, ketones presence Negative Normal A [facility] ([place]) Comment on above: Performed By: #### U A, UAMICAO ####Juanjo [address] [place], [place] [address] Urine, urobilinogen Negative Normal [facility] ([place] Comment on above: Performed By: #### U A, UAMICAO ####Juanjo [address] [place], [place] [address] XR CHEST 2 VIEWSon 7 XR CHEST 2 VIEWS ORIGINALXR CHEST 2 V IEWS CLINICAL STATEMENT: Abdominal pain COMPARISON: CT abdomen and pelvis from the same FINDINGS: The left heart border is obscured. Postoperative changes are seen at the left hilum and left base. There is elevation of the left hemidiaphragm with associated adjacent atelectasis. The lungs are otherwise clear. No vascular congestion, pleural effusion or pneumothorax. Degenerative changes are seen within the spine. IMPRESSION: No acute radiographic findings. Interpreted By: Neida Rowellreliminary Report By: Neida Rowell MDElectronically Signed By: Neida Rowell MD Dictated Date: 08/17/2017 3:24:48 PM Prelim Date: 08/17/2017 3:24:48 PM Sign Date: 08/17/2017 3:26:39 PM Normal [facility] ([place]) Vital Signs Date Time Vital Sign Value Performing Clinician Facility 02-06-2025 21:01-0400 Body temperature 97.5 [degF] Reji MORENO Work Phone: [facility] 02-06-2025 21:01-0400 Diastolic blood pressure 97 mm[Hg] Reji MORENO Work Phone: [facility] 02-06-2025 21:01-0400 Heart rate 74 /min Reji Carr INTERPRETER-C Work Phone: [facility] 02-06-2025 21:01-0400 Inhaled oxygen flow rate 5 L/min Reji Carr INTERPRETER-C Work Phone: [facility] 02-06-2025 21:01-0400 Respiratory rate 29 /min Reji Carr INTERPRETER-C Work Phone: [facility] 02-06-2025 21:01-0400 SaO2% (BldA) [Mass fraction] 97 % Reji Carr INTERPRETER-C Work Phone: [facility] 02-06-2025 21:01-0400 Systolic blood pressure 158 mm[Hg] Reji Carr INTERPRETER-C Work Phone: [facility] 02-06-2025 19:26-0400 Body height 160.02 cm Reji Carr INTERPRETER-C Work Phone: [facility] 10-23-2024 13:23-0500 Body mass index (BMI) [Ratio] 37.94 kg/m2 Aaron Moura APRN.PLANOGRAPH OPERATOR Work Phone: [facility] 10-23-2024 13:23-0500 Body temperature 97.81 [degF] Aaron Moura ROOF TRUSS DETAILER.PLANOGRAPH OPERATOR Work Phone: [facility] 10-23-2024 13:23-0500 Body weight 94.1 kg Aaron Moura APRN.PLANOGRAPH OPERATOR Work Phone: [facility] 10-23-2024 13:23-0500 Diastolic blood pressure 89 mm[Hg] Aaron Moura ROOF TRUSS DETAILER.PLANOGRAPH OPERATOR Work Phone: [facility] 10-23-2024 13:23-0500 Heart rate 77 /min Aaron Moura APRN.PLANOGRAPH OPERATOR Work Phone: [facility] 10-23-2024 13:23-0500 SaO2% (BldA) [Mass fraction] 94 % Aaron Moura ROOF TRUSS DETAILER.PLANOGRAPH OPERATOR Work Phone: [facility] 10-23-2024 13:23-0500 Systolic blood pressure 150 mm[Hg] Aaron Moura ROOF TRUSS DETAILER.PLANOGRAPH OPERATOR Work Phone: [facility] 08-10-2024 13:26-0500 Body height 157.5 cm Mariluz High MD Work Phone: [facility] 08-10-2024 13:26-0500 Body mass index (BMI) [Ratio] 37.71 kg/m2 Mariluz High MD Work Phone: [facility] 08-10-2024 13:26-0500 Body weight 93.53 kg Mariluz High MD Work Phone: [facility] 08-10-2024 13:26-0500 Diastolic blood pressure 80 mm[Hg] Mariluz High MD Work Phone: [facility] 08-10-2024 13:26-0500 Heart rate 91 /min Mariluz High MD Work Phone: [facility] 08-10-2024 13:26-0500 SaO2% (BldA) [Mass fraction] 90 % Mariluz High MD Work Phone: [facility] 08-10-2024 13:26-0500 Systolic blood pressure 132 mm[Hg] Mariluz High MD Work Phone: [facility] 08-08-2024 11:26-0500 Body height 157.5 cm Penny Garner MD Work Phone: [facility] 08-08-2024 11:26-0500 Body mass index (BMI) [Ratio] 37.86 kg/m2 Penny Garner MD Work Phone: [facility] 08-08-2024 11:26-0500 Body weight 93.89 kg Penny Garner MD Work Phone: [facility] 08-08-2024 11:26-0500 Diastolic blood pressure 86 mm[Hg] Penny Garner MD Work Phone: [facility] 08-08-2024 11:26-0500 Heart rate 79 /min Penny Garner MD Work Phone: [facility] 08-08-2024 11:26-0500 Respiratory rate 22 /min Penny Garner MD Work Phone: [facility] 08-08-2024 11:26-0500 SaO2% (BldA) [Mass fraction] 92 % Penny Garner MD Work Phone: [facility] Comment on above: RA 08-08-2024 11:26-0500 Systolic blood pressure 142 mm[Hg] Penny Garner MD Work Phone: [facility] 07-11-2024 10:42-0500 Body height 157.5 cm Sg Bogner PA-C Work Phone: [facility] 07-11-2024 10:42-0500 Body mass index (BMI) [Ratio] 37.86 kg/m2 Sg Bogner PA-C Work Phone: [facility] 07-11-2024 10:42-0500 Body weight 93.89 kg Sg Bogner PA-C Work Phone: [facility] 07-11-2024 10:42-0500 Diastolic blood pressure 88 mm[Hg] Sg Bogner PA-C Work Phone: [facility] 07-11-2024 10:42-0500 Heart rate 86 /min Sg Bogner PA-C Work Phone: [facility] 07-11-2024 10:42-0500 Respiratory rate 14 /min Sg Bogner PA-C Work Phone: [facility] 07-11-2024 10:42-0500 SaO2% (BldA) [Mass fraction] 94 % Sg Bogner PA-C Work Phone: [facility] 07-11-2024 10:42-0500 Systolic blood pressure 142 mm[Hg] Sg Bogner PA-C Work Phone: [facility] 06-16-2024 15:44-0400 Diastolic blood pressure 95 mm[Hg] [facility] Work Phone: [facility] 06-16-2024 15:44-0400 Heart rate 82 /min [facility] Work Phone: [facility] 06-16-2024 15:44-0400 Respiratory rate 22 /min [facility] Work Phone: [facility] 06-16-2024 15:44-0400 SaO2% (BldA) [Mass fraction] 95 % [facility] Work Phone: [facility] 06-16-2024 15:44-0400 Systolic blood pressure 156 mm[Hg] [facility] Work Phone: [facility] 06-16-2024 14:01-0400 Body height 160 cm [facility] Work Phone: [facility] 06-16-2024 14:01-0400 Body mass index (BMI) [Ratio] 33.66 kg/m2 [facility] Work Phone: [facility] 06-16-2024 14:01-0400 Body weight 86.18 kg [facility] Work Phone: [facility] 06-16-2024 14:00-0400 Body temperature 98.29 [degF] [facility] Work Phone: [facility] 01-05-2024 11:21-0400 Body height 157.5 cm Florina Arenas PA-C Work Phone: [facility] 01-05-2024 11:21-0400 Body mass index (BMI) [Ratio] 34.57 kg/m2 Florina Arenas PA-C Work Phone: [facility] 01-05-2024 11:21-0400 Body weight 85.73 kg Florina Arenas PA-C Work Phone: [facility] 01-05-2024 11:21-0400 Diastolic blood pressure 82 mm[Hg] Florina Milton PA-C Work Phone: [facility] 01-05-2024 11:21-0400 Heart rate 82 /min Florina Milton PA-C Work Phone: [facility] 01-05-2024 11:21-0400 Respiratory rate 14 /min Florina Milton PA-C Work Phone: [facility] 01-05-2024 11:21-0400 SaO2% (BldA) [Mass fraction] 91 % Florina Milton PA-C Work Phone: [facility] 01-05-2024 11:21-0400 Systolic blood pressure 136 mm[Hg] Florina Milton PA-C Work Phone: [facility] 01-05-2024 10:57-0400 Body height 157.5 cm Pulm Wstr Work Phone: [facility] 01-05-2024 10:57-0400 Body mass index (BMI) [Ratio] 34.57 kg/m2 Pulm Wstr Work Phone: [facility] 01-05-2024 10:57-0400 Body weight 85.73 kg Pulm Wstr Work Phone: [facility] 01-05-2024 10:57-0400 Heart rate 82 /min Pulm Wstr Work Phone: [facility] 01-05-2024 10:57-0400 Respiratory rate 14 /min Pulm Wstr Work Phone: [facility] 01-05-2024 10:57-0400 SaO2% (BldA) [Mass fraction] 91 % Pulm Wstr Work Phone: [facility] 11-09-2023 11:23-0400 Body weight 84.82 kg Pulm Wstr Work Phone: [facility] 11-09-2023 11:23-0400 Diastolic blood pressure 80 mm[Hg] Florina Milton PA-C Work Phone: [facility] 11-09-2023 11:23-0400 Heart rate 63 /min Florina Milton PA-C Work Phone: [facility] 11-09-2023 11:23-0400 SaO2% (BldA) [Mass fraction] 92 % Florina Milton PA-C Work Phone: [facility] 11-09-2023 11:23-0400 Systolic blood pressure 130 mm[Hg] Florina Milton PA-C Work Phone: [facility] 10-19-2023 12:54-0500 Body height 157.5 cm Sona Denbow PA-C Work Phone: [facility] 10-19-2023 12:54-0500 Body temperature 97.11 [degF] Sona Denbow PA-C Work Phone: [facility] 10-19-2023 12:54-0500 Body weight 79.83 kg Sona Denbow PA-C Work Phone: [facility] 10-19-2023 12:54-0500 Diastolic blood pressure 70 mm[Hg] Sona Denbow PA-C Work Phone: [facility] 10-19-2023 12:54-0500 Heart rate 91 /min Sona Denbow PA-C Work Phone: [facility] 10-19-2023 12:54-0500 Respiratory rate 14 /min Sona Denbow PA-C Work Phone: [facility] 10-19-2023 12:54-0500 SaO2% (BldA) [Mass fraction] 93 % Sona Denbow PA-C Work Phone: [facility] 10-19-2023 12:54-0500 Systolic blood pressure 128 mm[Hg] Sona Denbow PA-C Work Phone: [facility] 09-24-2023 12:20-0500 Body weight 80.29 kg Javiervernon Truong REG Work Phone: [facility] 09-24-2023 12:20-0500 Diastolic blood pressure 83 mm[Hg] Javier Truong ROOF TRUSS DETAILER.SLURRY TANK TENDER Work Phone: [facility] 09-24-2023 12:20-0500 Heart rate 94 /min Javier Truong ROOF TRUSS DETAILER.SLURRY TANK TENDER Work Phone: [facility] 09-24-2023 12:20-0500 Respiratory rate 16 /min Javier Truong ROOF TRUSS DETAILER.SLURRY TANK TENDER Work Phone: [facility] 09-24-2023 12:20-0500 SaO2% (BldA) [Mass fraction] 98 % Javier Truong ROOF TRUSS DETAILER.SLURRY TANK TENDER Work Phone: [facility] 09-24-2023 12:20-0500 Systolic blood pressure 126 mm[Hg] Javier Truong ROOF TRUSS DETAILER.SLURRY TANK TENDER Work Phone: [facility] 03-02-2023 08:45-0400 Body weight 88.91 kg Javier Truong ROOF TRUSS DETAILER.SLURRY TANK TENDER Work Phone: [facility] 03-02-2023 08:45-0400 Diastolic blood pressure 78 mm[Hg] Javier Truong ROOF TRUSS DETAILER.SLURRY TANK TENDER Work Phone: [facility] 03-02-2023 08:45-0400 Heart rate 56 /min Jvaier Truong ROOF TRUSS DETAILER.SLURRY TANK TENDER Work Phone: [facility] 03-02-2023 08:45-0400 Respiratory rate 16 /min Javier Truong ROOF TRUSS DETAILER.SLURRY TANK TENDER Work Phone: [facility] 03-02-2023 08:45-0400 SaO2% (BldA) [Mass fraction] 94 % Javier Truong ROOF TRUSS DETAILER.SLURRY TANK TENDER Work Phone: [facility] 03-02-2023 08:45-0400 Systolic blood pressure 120 mm[Hg] Javier Truong ROOF TRUSS DETAILER.SLURRY TANK TENDER Work Phone: [facility] 12-22-2022 08:39-0400 Body weight 86.18 kg Aaron La [place] ROOF TRUSS DETAILER.PLANOGRAPH OPERATOR Work Phone: [facility] 12-22-2022 08:39-0400 Diastolic blood pressure 60 mm[Hg] Aaron [place] ROOF TRUSS DETAILER.PLANOGRAPH OPERATOR Work Phone: [facility] 12-22-2022 08:39-0400 Heart rate 93 /min Aaron Zhengpster ROOF TRUSS DETAILER.PLANOGRAPH OPERATOR Work Phone: [facility] 12-22-2022 08:39-0400 Respiratory rate 20 /min Aaron [place] ROOF TRUSS DETAILER.PLANOGRAPH OPERATOR Work Phone: [facility] 12-22-2022 08:39-0400 SaO2% (BldA) [Mass fraction] 88 % Aaron Zhengpster ROOF TRUSS DETAILER.PLANOGRAPH OPERATOR Work Phone: [facility] 12-22-2022 08:39-0400 Systolic blood pressure 122 mm[Hg] Aaron [place] ROOF TRUSS DETAILER.PLANOGRAPH OPERATOR Work Phone: [facility] 12-20-2022 13:44-0400 Body mass index (BMI) [Ratio] 35.7 kg/m2 [facility] 12-20-2022 13:44-0400 Body weight 91.53 kg [facility] 12-20-2022 12:48-0400 Body height 160.02 cm [facility] 12-20-2022 12:48-0400 Body temperature 97.6 [degF] [facility] 12-20-2022 12:48-0400 Diastolic blood pressure 99 mm[Hg] [facility] 12-20-2022 12:48-0400 Heart rate 80 /min [facility] 12-20-2022 12:48-0400 Respiratory rate 18 /min [facility] 12-20-2022 12:48-0400 SaO2% (BldA) [Mass fraction] 92 % [facility] 12-20-2022 12:48-0400 Systolic blood pressure 141 mm[Hg] [facility] 12-18-2022 09:51-0400 Body weight 86.18 kg Florina Arenas PA-C Work Phone: [facility] 12-18-2022 09:51-0400 Heart rate 75 /min Florina Ballone PA-C Work Phone: [facility] 12-18-2022 09:51-0400 Respiratory rate 17 /min Florina Milton PA-C Work Phone: [facility] 12-18-2022 09:51-0400 SaO2% (BldA) [Mass fraction] 94 % Florina Milton PA-C Work Phone: [facility] 11-30-2022 08:38-0400 Body weight 86.64 kg Felicity Tania ROOF TRUSS DETAILER.PLANOGRAPH OPERATOR Work Phone: [facility] 11-30-2022 08:38-0400 Diastolic blood pressure 84 mm[Hg] Felicity Tania ROOF TRUSS DETAILER.PLANOGRAPH OPERATOR Work Phone: [facility] 11-30-2022 08:38-0400 Heart rate 76 /min Felicity Tania ROOF TRUSS DETAILER.PLANOGRAPH OPERATOR Work Phone: [facility] 11-30-2022 08:38-0400 SaO2% (BldA) [Mass fraction] 94 % Felicity Tania ROOF TRUSS DETAILER.PLANOGRAPH OPERATOR Work Phone: [facility] 11-30-2022 08:38-0400 Systolic blood pressure 114 mm[Hg] Felicity Tania ROOF TRUSS DETAILER.PLANOGRAPH OPERATOR Work Phone: [facility] 11-27-2022 11:47-0400 Body temperature 98.2 [degF] Cheyanne 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 Work Phone: [facility] 11-27-2022 11:47-0400 Body weight 87.09 kg Cheyanne 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 Work Phone: [facility] 11-27-2022 11:47-0400 Diastolic blood pressure 82 mm[Hg] Cheyanne 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 Work Phone: [facility] 11-27-2022 11:47-0400 Heart rate 80 /min Cheyanne 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 Work Phone: [facility] 11-27-2022 11:47-0400 Respiratory rate 16 /min Cheyanne 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 Work Phone: [facility] 11-27-2022 11:47-0400 SaO2% (BldA) [Mass fraction] 94 % Cheyanne 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 Work Phone: [facility] 11-27-2022 11:47-0400 Systolic blood pressure 128 mm[Hg] Cheyanne 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 Work Phone: [facility] 11-23-2022 09:13-0400 Body temperature 98.49 [degF] Cheyanne 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 Work Phone: [facility] 11-23-2022 09:13-0400 Body weight 86.64 kg Cheyanne 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 Work Phone: [facility] 11-23-2022 09:13-0400 Diastolic blood pressure 70 mm[Hg] Cheyanne 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 Work Phone: [facility] 11-23-2022 09:13-0400 Heart rate 88 /min Cheyanne 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 Work Phone: [facility] 11-23-2022 09:13-0400 Respiratory rate 16 /min Cheyanne 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 Work Phone: [facility] 11-23-2022 09:13-0400 SaO2% (BldA) [Mass fraction] 95 % Cheyanne 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 Work Phone: [facility] 11-23-2022 09:13-0400 Systolic blood pressure 112 mm[Hg] Cheyanne 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 Work Phone: [facility] 10-26-2022 09:04-0500 Body weight 88 kg Cheyanne 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 Work Phone: [facility] 10-26-2022 09:04-0500 Diastolic blood pressure 76 mm[Hg] Cheyanne 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 Work Phone: [facility] 10-26-2022 09:04-0500 Heart rate 80 /min Cheyanne 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 Work Phone: [facility] 10-26-2022 09:04-0500 Respiratory rate 16 /min Cheyanne 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 Work Phone: [facility] 10-26-2022 09:04-0500 Systolic blood pressure 128 mm[Hg] Cheyanne 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 Work Phone: [facility] 07-20-2022 12:55-0500 Body weight 83.92 kg Florina Milton PA-C Work Phone: [facility] 07-20-2022 12:55-0500 Diastolic blood pressure 82 mm[Hg] Florina Milton PA-C Work Phone: [facility] 07-20-2022 12:55-0500 Heart rate 66 /min Florina Milton PA-C Work Phone: [facility] 07-20-2022 12:55-0500 Respiratory rate 16 /min Florina Milton PA-C Work Phone: [facility] 07-20-2022 12:55-0500 SaO2% (BldA) [Mass fraction] 92 % Florina Milton PA-C Work Phone: [facility] 07-20-2022 12:55-0500 Systolic blood pressure 138 mm[Hg] Florina Milton PA-C Work Phone: [facility] 02-25-2022 08:15-0400 Body weight 85.28 kg Cheyanne 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 Work Phone: [facility] 02-25-2022 08:15-0400 Diastolic blood pressure 86 mm[Hg] Cheyanne 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 Work Phone: [facility] 02-25-2022 08:15-0400 Heart rate 88 /min Cheyanne 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 Work Phone: [facility] 02-25-2022 08:15-0400 Respiratory rate 16 /min Cheyanne 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 Work Phone: [facility] 02-25-2022 08:15-0400 Systolic blood pressure 130 mm[Hg] Cheyanne Cortez APRN.PLANOGRAPH OPERATOR Work Phone: [facility] 01-12-2022 09:33-0400 Body height 157.5 cm Florina Milton PA-C Work Phone: [facility] 01-12-2022 09:33-0400 Body weight 86.09 kg Florina Milton PA-C Work Phone: [facility] 01-12-2022 09:33-0400 Diastolic blood pressure 86 mm[Hg] Florina Milton PA-C Work Phone: [facility] 01-12-2022 09:33-0400 Heart rate 87 /min Florina Milton PA-C Work Phone: [facility] 01-12-2022 09:33-0400 Respiratory rate 16 /min Florina Milton PA-C Work Phone: [facility] 01-12-2022 09:33-0400 SaO2% (BldA) [Mass fraction] 95 % Florina Milton PA-C Work Phone: [facility] 01-12-2022 09:33-0400 Systolic blood pressure 146 mm[Hg] Florina Milton PA-C Work Phone: [facility] 12-01-2021 11:11-0400 Diastolic blood pressure 88 mm[Hg] Felicity Forrest APRN.PLANOGRAPH OPERATOR Work Phone: [facility] 12-01-2021 11:11-0400 Heart rate 84 /min Felicity Forrest ROOF TRUSS DETAILER.PLANOGRAPH OPERATOR Work Phone: [facility] 12-01-2021 11:11-0400 Systolic blood pressure 120 mm[Hg] Felicity Forrest APRN.PLANOGRAPH OPERATOR Work Phone: [facility] 11-25-2021 08:53-0400 Body weight 84.82 kg Penny Garner MD Work Phone: [facility] 11-25-2021 08:53-0400 Diastolic blood pressure 69 mm[Hg] Penny Garner MD Work Phone: [facility] 11-25-2021 08:53-0400 Heart rate 82 /min Penny Garner MD Work Phone: [facility] 11-25-2021 08:53-0400 Respiratory rate 16 /min Penny Garner MD Work Phone: [facility] 11-25-2021 08:53-0400 SaO2% (BldA) [Mass fraction] 94 % Penny Garner MD Work Phone: [facility] 11-25-2021 08:53-0400 Systolic blood pressure 121 mm[Hg] Penny Garner MD Work Phone: [facility] 11-25-2021 08:14-0400 Body height 157.5 cm Respiratory Wstr Work Phone: [facility] 11-25-2021 08:14-0400 Body weight 85.09 kg Respiratory Wstr Work Phone: [facility] 11-25-2021 08:14-0400 Heart rate 82 /min Respiratory Wstr Work Phone: [facility] 11-25-2021 08:14-0400 Respiratory rate 16 /min Respiratory Wstr Work Phone: [facility] 11-25-2021 08:14-0400 SaO2% (BldA) [Mass fraction] 94 % Respiratory Wstr Work Phone: [facility] Encounters Encounter Date Encounter Type Care Provider Facility Start: 02-06-2025 End: 02-06-2025 Emergency department patient visit Reji MORENO Work Phone: -Emergency Department Work Phone: Start: 11-21-2024 End: 11-21-2024 ambulatory Chioma HOLT Pulmonary Medicine Start: 11-20-2024 End: 01-20-2025 Follow-up encounter Mariluz High MD Work Phone: [facility] [place] Start: 11-17-2024 End: 11-17-2024 ambulatory MARILUZ HIGH Facility:[facility] Start: 11-17-2024 End: 11-17-2024 Subsequent hospital visit by physician Screen Mammo [facility] M[facility] Start: 11-05-2024 End: 11-06-2024 Refill Cheyanne Cortez APRN.DICK Work Phone: [facility] [place] Comment on above: Refill Request Start: 11-02-2024 End: 11-21-2024 Telephone encounter Aaron Moura APRN.PLANOGRAPH OPERATOR Work Phone: Pulmonary Medicine Comment on above: Patient Update Start: 10-26-2024 End: 10-26-2024 Follow-up encounter Aaron Moura APRN.PLANOGRAPH OPERATOR Work Phone: Pulmonary Medicine Start: 10-25-2024 End: 12-25-2024 Follow-up encounter Cheyanne Cortez APRN.PLANOGRAPH OPERATOR Work Phone: [facility] [place] Start: 10-23-2024 End: 10-23-2024 ambulatory CHEYANNE CORTEZ Facility:[facility] Start: 10-23-2024 End: 10-23-2024 Patient encounter procedure Aaron Moura APRN.PLANOGRAPH OPERATOR Work Phone: Pulmonary Medicine Comment on above: Lung nodules (Primar y Dx); Encounter for screening for lung cancer; Tobacco use current; Pneumonia of both lungs due to infectious organism, unspecified part of lung; COPD with exacerbation (HCC) Start: 10-23-2024 End: 10-23-2024 ambulatory AARON MOURA Facility:[facility] Start: 10-23-2024 End: 10-23-2024 Subsequent hospital visit by physician [facility] ([facility]) Work Phone: Cat Scan Comment on above: Cigarette smoker [F1 7.210] Start: 10-09-2024 End: 10-16-2024 Refill Cheyanne Cortez APRN.DICK Work Phone: [facility] [place] Comment on above: Refill Request Start: 10-02-2024 End: 10-05-2024 Telephone encounter Mariluz High MD Work Phone: [facility] [place] Comment on above: Medication Question Start: 09-26-2024 End: 09-26-2024 Orders Only Rayna Wilkes ROOF TRUSS DETAILER.PLANOGRAPH OPERATOR Work Phone: Pulmonary Medicine Comment on above: OPENED IN ERROR (Samaria jimi Dx) Start: 09-20-2024 End: 09-21-2024 Refill Cheyanne Cortez ROOF TRUSS DETAILER.PLANOGRAPH OPERATOR Work Phone: [facility] [place] Comment on above: Refill Request Start: 08-23-2024 End: 08-25-2024 Refill Amalia Gonzales ROOF TRUSS DETAILER.PLANOGRAPH OPERATOR Work Phone: [facility] [place] Comment on above: Refill Request Start: 08-17-2024 End: 08-25-2024 Refill Mariluz High MD Work Phone: [facility] [place] Comment on above: Refill Request Start: 08-10-2024 End: 08-10-2024 ambulatory MARILUZ HIGH Facility:[facility] Start: 08-10-2024 End: 08-10-2024 Office outpatient visit 25 minutes Mariluz High MD Work Phone: [facility] [place] Comment on above: Obesity (BMI 35.0-39 .9 without comorbidity) (Primary Dx); Encounter for immunization; Essential hypertension; Tobacco use Start: 08-08-2024 End: 08-08-2024 Orders Only Aaron Moura ROOF TRUSS DETAILER.PLANOGRAPH OPERATOR Work Phone: Pulmonary Medicine Comment on above: Cigarette smoker (Pr imary Dx); Encounter for screening for lung cancer Asthma-COPD overlap syndrome (HCC) (Primary Dx); Cigarette smoker; Class 2 obesity Start: 08-06-2024 End: 08-07-2024 Refill Cheyanne Cortez APRN.PLANOGRAPH OPERATOR Work Phone: [facility] [place] Comment on above: Refill Request Start: 08-04-2024 End: 08-04-2024 Refill Mariluz High MD Work Phone: [facility] [place] Comment on above: Refill Request Start: 07-29-2024 End: 07-29-2024 ambulatory [facility] Facility:[facility] Start: 07-28-2024 End: 07-28-2024 ambulatory [facility] Facility:[facility] Start: 07-25-2024 End: 07-28-2024 ambulatory Mariluz High MD Work Phone: Internal Medicine [facility] Start: 07-14-2024 End: 07-14-2024 Refill Sg Clemons PA-C Work Phone: Internal Medicine [place] Comment on above: Med Change Request Start: 07-13-2024 End: 07-17-2024 Telephone encounter Kadi Rizzo APRN.PLANOGRAPH OPERATOR Work Phone: [facility] [place] Comment on above: Results; Orders Start: 07-13-2024 End: 07-13-2024 [facility] Facility[facility] Start: 07-12-2024 End: 07-18-2024 Telephone encounter Mariluz High MD Work Phone: [facility] [place] Comment on above: Results Start: 07-11-2024 End: 07-19-2024 Telephone encounter Mariluz High MD Work Phone: [facility] [place] Comment on above: Insurance Authorizat ion Start: 07-11-2024 End: 07-11-2024 Office outpatient visit 25 minutes Sg Clemons PA-C Work Phone: [facility] [place] Comment on above: Class 2 obesity with body mass index (BMI) of 37.0 to 37.9 in adult, unspecified obesity type, unspecified whether serious comorbidity present (Primary Dx); Anxiety; Episode of recurrent major depressive disorder, unspecified depression episode severity (HCC); Stress incontinence; Urge incontinence Start: 07-11-2024 End: 07-11-2024 ambulatory [facility] Facility:[facility] Start: 07-06-2024 End: 07-07-2024 Refill Javier Truong APRN.SLURRY TANK TENDER Work Phone: [facility] [place] Comment on above: Refill Request Start: 06-28-2024 End: 06-28-2024 [facility] [place] Start: 06-28-2024 End: 06-28-2024 Patient encounter procedure Nisha Carranza MA [facility] [place] Comment on above: Population Health Na vigation Outreach ([facility]SA ) Start: 06-16-2024 End: 06-16-2024 Subsequent hospital visit by physician [facility] Comment on above: Arrived Start: 06-16-2024 End: 06-16-2024 Emergency department patient visit FER BANSAL [facility] Comment on above: Subconjunctival hemo rrhage of right eye (Primary Dx); Acute right eye pain Start: 05-29-2024 End: 05-29-2024 Refill Florina Arenas PA-C Work Phone: Pulmonary Medicine Comment on above: Refill Request Start: 05-15-2024 End: 05-15-2024 ambulatory [facility] [place] Start: 05-15-2024 End: 05-15-2024 Patient encounter procedure [facility] [place] Comment on above: Population Health Na vigation Outreach (/[facility], [facility], Care gaps, HCC, [place] PCSA//) Start: 03-22-2024 Refill Florina Montemayor PA-C Work Phone: Pulmonary Medicine Comment on above: Refill Request Start: 02-11-2024 Refill Florina Montemayor PA-C Work Phone: Pulmonary Medicine Comment on above: Refill Request Start: 01-31-2024 Refill Mariluz Giron Work Phone: [facility] [place] Comment on above: Refill Request Start: 01-19-2024 ambulatory Mariluz High M Bree Work Phone: Internal Medicine [facility] [place] Start: 01-05-2024 End: 01-05-2024 Subsequent hospital visit by physician Maria [facility] Lechuga Work Phone: Radiology Comment on above: Asthma with COPD wit h exacerbation (HCC) ([facility]) [J44.1, J45.901] Start: 01-05-2024 End: 01-05-2024 Patient encounter procedure Pulm [facility] Work Phone: PULM LAB [facility] Comment on above: Asthma with COPD wit h exacerbation (HCC) (HCC) (Primary Dx); Dyspnea and respiratory abnormalities; Wheezing; Cough, unspecified type; Tobacco use current; Allergic rhinitis, unspecified seasonality, unspecified trigger; Eosinophilia, unspecified type; Dependence on nocturnal oxygen therapy Start: 01-05-2024 End: 01-05-2024 ambulatory Pul[facility] Work Phone: PULM LAB [facility] Comment on above: Spirometry Start: 12-29-2023 Admission to [facility] Mariluz High MD Work Phone: Ambulatory Surgery Start: 12-29-2023 ambulatory Mariluz Giron Work Phone: Ambulatory Surgery Start: 12-20-2023 Telephone encounter Florina MIXONC Work Phone: Pulmonary Medicine Comment on above: Orders Start: 12-15-2023 Refill Florina Del Rio-C Work Phone: Pulmonary Medicine Comment on above: Refill Request Start: 12-04-2023 Refill Felicity Haines y ROOF TRUSS DETAILER.PLANOGRAPH OPERATOR Work Phone: Cardiology Comment on above: Refill Request Start: 12-02-2023 Telephone encounter Florina BRUNO-C Work Phone: Pulmonary Medicine Comment on above: Orders Start: 11-24-2023 Refill Javier FOFANAN.SLURRY TANK TENDER Work Phone: Internal Medicine [place] Comment on above: Refill Request Start: 11-09-2023 End: 11-09-2023 Office outpatient visit 25 minutes Florina BRUNO-C Work Phone: Pulmonary Medicine Comment on above: Asthma with COPD wit h exacerbation (HCC) (HCC) (Primary Dx); Asthma-COPD overlap syndrome (HCC); Tobacco use current; Diaphragm dysfunction; Eosinophilia, unspecified type Start: 11-09-2023 End: 11-09-2023 ambulatory [facility] Work Phone: PULM LAB [facility] Comment on above: Spirometry Start: 11-09-2023 End: 11-09-2023 Patient encounter procedure Pulm [facility] Work Phone: [facility] Start: 10-28-2023 ambulatory Sylvia Ortiz Hansen MA [facility] [place] Start: 10-28-2023 Patient encounter procedure Sylvia Sathish Hansen MA [facility] [place] Comment on above: Population Health Na vigation Outreach ([facility] Annual Wellness Visit ) Start: 10-21-2023 Telephone encounter Mariluz wu MD Work Phone: Internal Medicine [place] Comment on above: Orders Medication Problem Start: 10-19-2023 End: 10-19-2023 Patient encounter procedure Sona Cullen PA-C Work Phone: [facility] [place] Comment on above: Severe anxiety with panic (Primary Dx); Primary insomnia; Essential hypertension; Class 1 obesity without serious comorbidity with body mass index (BMI) of 32.0 to 32.9 in adult, unspecified obesity type; Obesity, Class I, BMI 30-34.9 Start: 10-14-2023 End: 10-14-2023 Subsequent hospital visit by physician Xr [facility] Work Phone: Radiology Comment on above: Pulmonary infiltrate s [R91.8] Start: 10-13-2023 Telephone encounter Cheyanne Cortez APRN.PLANOGRAPH OPERATOR Work Phone: [facility] Medicine [place] Comment on above: Orders Start: 10-10-2023 Refill Cheyanne Cortez ROOF TRUSS DETAILER .PLANOGRAPH OPERATOR Work Phone: Internal Medicine [place] Comment on above: Refill Request Start: 10-05-2023 ambulatory Javier Law PRN.SLURRY TANK TENDER Work Phone: Internal Medicine [place] Comment on above: Diet shot Start: 10-04-2023 ambulatory Javier Law PRN.SLURRY TANK TENDER Work Phone: [facility] [place] Comment on above: Shot Start: 10-01-2023 Telephone encounter Mariluz wu MD Work Phone: [facility] Medicine [place] Comment on above: Sara BRUNO Start: 09-28-2023 End: 09-28-2023 Subsequent hospital visit by physician Bone Density [facility] Work Phone: Radiology Comment on above: Encounter for screen ing for osteoporosis [Z13.820] Start: 09-27-2023 Telephone encounter Mariluz wu MD Work Phone: Internal Medicine [place] Comment on above: Rosio BRUNO Rx issue Start: 09-24-2023 End: 09-24-2023 Office outpatient visit 25 minutes Javier Leavittclau RODRIGEZN.SLURRY TANK TENDER Work Phone: Internal Medicine [place] Comment on above: Chronic midline low back pain without sciatica (Primary Dx); Encounter for screening for osteoporosis; Asymptomatic postmenopausal status; Class 2 severe obesity due to excess calories with serious comorbidity and body mass index (BMI) of 35.0 to 35.9 in adult (HCC) Start: 09-17-2023 End: 09-17-2023 Subsequent hospital visit by physician Xr [facility] [place] Work Phone: Radiology Comment on above: Chronic midline low back pain without sciatica [M54.50, G89.29] Start: 09-03-2023 End: 09-03-2023 Subsequent hospital visit by physician Xr [facility] Work Phone: Radiology Comment on above: Wheezing [R06.2] Start: 08-10-2023 Telephone encounter Cheyanne Cortez ROOF TRUSS DETAILER.PLANOGRAPH OPERATOR Work Phone: Family Medicine [place] Comment on above: [employer] Start: 06-15-2023 Refill Cheyanne Older ROOF TRUSS DETAILER .PLANOGRAPH OPERATOR Work Phone: Internal Medicine [place] Comment on above: Refill Request Start: 05-20-2023 Refill Cheyanne Cortez ROOF TRUSS DETAILER .PLANOGRAPH OPERATOR Work Phone: Internal [facility] [place] Comment on above: Refill Request Start: 04-22-2023 Telephone encounter Mariluz wu MD Work Phone: [address] [place] [address] Comment on above: Patient Question Start: 03-02-2023 Telephone encounter Felicity Forrest APRN.PLANOGRAPH OPERATOR Work Phone: Cardiology Comment on above: Results Start: 03-02-2023 End: 03-02-2023 Office outpatient visit 25 minutes Javier Truong FIFI.SLURRY TANK TENDER Work Phone: Internal Medicine [place] Comment on above: Essential hypertensi on (Primary Dx); Hypopotassemia; Episode of recurrent major depressive disorder, unspecified depression episode severity (HCC); Insomnia, unspecified type; COPD with chronic bronchitis (HCC); Primary insomnia; Hyperlipidemia, unspecified hyperlipidemia type; Class 2 severe obesity due to excess calories with serious comorbidity and body mass index (BMI) of 35.0 to 35.9 in adult (HCC) Start: 03-01-2023 Telephone encounter Felicity Forrest APRN.PLANOGRAPH OPERATOR Work Phone: Cardiology Comment on above: Results Start: 03-01-2023 End: 03-01-2023 Nursing evaluation of patient and report Nurse Card Admin [facility] Work Phone: Cardiology Comment on above: Screening for ischem ic heart disease (Primary Dx) Start: 03-01-2023 End: 03-01-2023 Subsequent hospital visit by physician Injection [facility] [facility] Work Phone: Nuclear Medicine Comment on above: Chest pain, unspecif ied type [R07.9] Start: 01-26-2023 End: 01-26-2023 Subsequent hospital visit by physician Diagnostic Mammo [facility] Mammogram Comment on above: Abnormal mammogram [ R92.8] Start: 12-29-2022 End: 12-29-2022 Orders Only Aaron Moura APRN.PLANOGRAPH OPERATOR Work Phone: Pulmonary Medicine Comment on above: Encounter for screen ing for lung cancer (Primary Dx); Tobacco use current Encounter for screen ing for lung cancer [Z12.2] Start: 12-28-2022 ambulatory Nurse Card Adm in [facility] Work Phone: Cardiology Comment on above: Stress Test Instruct ion for 01/04/23 Start: 12-28-2022 E-mail encounter fro m caregiver Nurse Card Admin [facility] Work Phone: [facility] Start: 12-25-2022 Telephone encounter Felicity Forrest APRN.CNP Work Phone: Cardiology Comment on above: Results Start: 12-24-2022 End: 12-24-2022 ambulatory Pulm Lab [facility] Work Phone: PULM LAB [facility] Comment on above: Spirometry Asthma-COPD overlap syndrome (HCC) (Primary Dx); Hypoxia Start: 12-24-2022 End: 12-24-2022 Patient encounter procedure Pulm Lab [facility] Work Phone: [facility] Start: 12-22-2022 Telephone encounter Felicity Forrest APRN.CNP Work Phone: Cardiology Comment on above: Patient Update Start: 12-22-2022 End: 12-22-2022 Patient encounter procedure Aaron Moura APRN.CNP Work Phone: Pulmonary Medicine Comment on above: Encounter for screen ing for lung cancer (Primary Dx); Tobacco use current; Hypoxia Start: 12-21-2022 Telephone encounter Cheyanne Cortez APRN.CNP Work Phone: Internal Medicine [place] Comment on above: Results Start: 12-20-2022 End: 12-20-2022 Emergency department patient visit [facility] Facility:[facility] Start: 12-20-2022 End: 12-20-2022 Emergency department patient visit [facility]Emergency [facility] Start: 12-18-2022 End: 12-18-2022 Subsequent hospital visit by physician Xr [facility] Work Phone: Radiology Comment on above: Pleural effusion [J9 0] Encounter for screen ing mammogram for breast cancer [Z12.31] Start: 12-18-2022 End: 12-18-2022 Patient encounter procedure Florina Arenas PA-C Work Phone: Pulmonary Medicine Comment on above: Asthma-COPD overlap syndrome (HCC) (Primary Dx); Pleural effusion; Current smoker; Diaphragm dysfunction Start: 11-30-2022 End: 11-30-2022 Patient encounter procedure Felicity Forrest SONAM Work Phone: Cardiology Comment on above: Chest pain, unspecif ied type (Primary Dx); Encounter for screening for cardiovascular disorders; PORTILLO (dyspnea on exertion); Mixed hyperlipidemia; Edema, unspecified type; Tobacco use; Obesity (BMI 30-39.9) Start: 11-27-2022 End: 11-27-2022 Patient encounter procedure Cheyanne Cortez APRN.CNP Work Phone: Internal Medicine [place] Comment on above: COPD with exacerbati on (HCC) (Primary Dx); Pleural effusion Start: 11-25-2022 ambulatory [facility] Provider Internal M edicine [place] Comment on above: results Start: 11-25-2022 E-mail encounter fro m caregiver [facility] [place] Start: 11-25-2022 Telephone encounter Cheyanne Cortez APRN.CNP Work Phone: Internal Medicine [place] Comment on above: Results Start: 11-23-2022 ambulatory Cheyanne Cortez APRN, .CNP Work Phone: Internal Medicine [place] Comment on above: Question regarding X R CHEST 2V FRONTAL/LAT Start: 11-23-2022 End: 11-23-2022 Subsequent hospital visit by physician Maria [facility] [place] Work Phone: Radiology Comment on above: Shortness of breath [R06.02] Start: 11-23-2022 End: 11-23-2022 Patient encounter procedure Cheyanne Cortez APRN.CNP Work Phone: Internal Medicine [place] Comment on above: Annual physical exam (Primary Dx); Essential hypertension; Primary insomnia; Shortness of breath; COPD with exacerbation (HCC); Severe anxiety with panic; Insomnia, unspecified type; Episode of recurrent major depressive disorder, unspecified depression episode severity (HCC) Start: 10-26-2022 End: 10-26-2022 Patient encounter procedure hCeyanne Cortez APRN.CNP Work Phone: Internal Medicine [place] Comment on above: Severe anxiety with panic (Primary Dx); Annual physical exam Start: 10-20-2022 ambulatory Cheyanne Cortez APRN, .CNP Work Phone: Internal Medicine [place] Comment on above: Anxiety Start: 09-30-2022 Refill Batool Older ROOF TRUSS DETAILER .PLANOGRAPH OPERATOR Work Phone: Internal Medicine [place] Comment on above: Refill Request Start: 09-14-2022 Telephone encounter Mariluz wu MD Work Phone: Internal Medicine [place] Comment on above: mammogram order Start: 07-20-2022 End: 07-20-2022 Patient encounter procedure Florina Arenas PA-C Work Phone: Pulmonary Medicine Comment on above: Asthma-COPD overlap syndrome (HCC) (Primary Dx); Cigarette smoker; Allergic rhinitis, unspecified seasonality, unspecified trigger; Diaphragm dysfunction; Lung nodule Start: 07-09-2022 ambulatory Christine Ferrari MA [facility] [place] Comment on above: Population Health Na vigation Outreach ([facility]) Start: 05-29-2022 Refill Reji Carr A PRN.PLANOGRAPH OPERATOR Work Phone: Internal Medicine [place] Comment on above: Refill Request Start: 05-27-2022 ambulatory Rosi Burgess MA [facility] [place] Comment on above: Population Health Na vigation Outreach ([facility] care gaps) Start: 04-25-2022 Refill Cheyanne Older ROOF TRUSS DETAILER .PLANOGRAPH OPERATOR Work Phone: Internal Medicine [place] Comment on above: Refill Request Start: 04-10-2022 Refill Cheyanne Older ROOF TRUSS DETAILER .PLANOGRAPH OPERATOR Work Phone: Internal Medicine [place] Comment on above: Refill Request Start: 03-04-2022 Refill Cheyanne Older ROOF TRUSS DETAILER .PLANOGRAPH OPERATOR Work Phone: Internal Medicine [place] Comment on above: Refill Request Start: 02-26-2022 Chart abstracting Bob Ubaldo AIR CONDITIONING UNIT TESTER Work Phone: Psychology Comment on above: Consult ([facility] Pt Out reach F/U) Start: 02-25-2022 Chart abstracting Bob Ubaldo AIR CONDITIONING UNIT TESTER Work Phone: Psychology Comment on above: Consult (Initial [facility] Pt Outreach) Start: 02-25-2022 End: 02-25-2022 Patient encounter procedure Cheyanne 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 Work Phone: Internal Medicine [place] Comment on above: Anxiety (Primary Dx) ; Plantar fasciitis of right foot Start: 02-17-2022 Refill Cheyanne Older ROOF TRUSS DETAILER .PLANOGRAPH OPERATOR Work Phone: Internal Medicine [place] Comment on above: Refill Request Start: 02-17-2022 Refill Cheyanne Older ROOF TRUSS DETAILER .PLANOGRAPH OPERATOR Work Phone: Internal Medicine [place] Comment on above: Refill Request Start: 01-14-2022 Refill Cheyanne Older ROOF TRUSS DETAILER .PLANOGRAPH OPERATOR Work Phone: Internal Medicine [place] Comment on above: Refill Request Start: 01-12-2022 End: 01-12-2022 Patient encounter procedure Florina Arenas PA-C Work Phone: Pulmonary Medicine Comment on above: Asthma-COPD overlap syndrome (HCC) (Primary Dx); Cigarette smoker; Diaphragm dysfunction; Lung nodule < 6cm on CT; Family history of colon cancer Start: 12-17-2021 Refill Mariluz Giron Work Phone: Internal Medicine [place] Comment on above: Refill Request Start: 12-11-2021 Documentation procedure Mammog tena Coordinator [facility] Start: 12-11-2021 Letter encounter Mammography Coordinator [facility] Department Start: 12-04-[address] abdalla ROOF TRUSS DETAILER.PLANOGRAPH OPERATOR Work Phone: Family Medicine [place] Comment on above: Results Start: 12-01-2021 End: 12-01-2021 Patient encounter procedure Felicity Forrest ROOF TRUSS DETAILER.PLANOGRAPH OPERATOR Work Phone: Cardiology Comment on above: Essential hypertensi on (Primary Dx); Chest pain, unspecified type; Tobacco use Start: 11-25-2021 End: 11-25-2021 ambulatory Respiratory Therapist [facility] Work Phone: Pulmonary Medicine Comment on above: Spirometry Start: 11-25-2021 End: 11-25-2021 Patient encounter procedure Respiratory Therapist [facility] Work Phone: [place] [facility] Comment on above: Asthma-COPD overlap syndrome (HCC) (Primary Dx); Shortness of breath; Cigarette smoker; Diaphragm dysfunction Start: 03-25-2021 End: 03-25-2021 Subsequent hospital visit by physician Xr [facility] [place] Work Phone: Radiology Comment on above: Fall, initial encoun ter [W19.XXXA] Start: 08-17-2017 End: 08-17-2017 Emergency department patient visit [facility] Facility:B Procedures Date Procedure Procedure Detail Performing Clinician Start: 02-06-2025 Carbon dioxide measurement, partial pressure Reji Carr INTERPRETER-C Work Phone: Start: 02-06-2025 Gases blood o2 satur ation only direct nan Reji Carr INTERPRETER-C Work Phone: Start: 02-06-2025 Measurement of parti al pressure of oxygen in blood Reji Carr INTERPRETER-C Work Phone: Start: 02-06-2025 Oxygen measurement Herlinda Carr INTERPRETER-C Work Phone: Start: 10-23-2024 CT LUNG SCREEN WO ALEXEY Moura ROOF TRUSS DETAILER.PLANOGRAPH OPERATOR Work Phone: Start: 07-29-2024 Lipid 1996 panel - S karen or Plasma Mariluz High MD Work Phone: Start: 06-16-2024 Ct orbit sella/post fossa/ear w/o contrast matrl Fer Bansal PA-C Work Phone: Start: 01-05-2024 Radiologic exam ches t 2 views Florina Arenas PA-C Work Phone: Start: 01-05-2024 Brncdilat rspse spmt ry pre&post-brncdilat admn Florina Arenas PA-C Work Phone: Start: 11-09-2023 Noninvasive ear/puls e oximetry multiple deter Florina Arenas PA-C Work Phone: Start: 10-14-2023 Radiologic exam ches t 2 views Cheyanne Cortez ROOF TRUSS DETAILER.PLANOGRAPH OPERATOR Work Phone: Start: 09-28-2023 BD DXA TRABECULAR ANABELLA NE SCORE (TBS) Javier Truong ROOF TRUSS DETAILER.SLURRY TANK TENDER Work Phone: Start: 09-28-2023 Dxa bone density stephan dy 1/> sites axial skel Javier Truong ROOF TRUSS DETAILER.SLURRY TANK TENDER Work Phone: Start: 09-17-2023 Radex spine lumbosac ral 2/3 views Javier Truong ROOF TRUSS DETAILER.SLURRY TANK TENDER Work Phone: Start: 09-03-2023 Radiologic exam ches t 2 views Cheyanne Cortez ROOF TRUSS DETAILER.PLANOGRAPH OPERATOR Work Phone: Start: 09-02-2023 Lipid 1996 panel - S karen or Plasma Javier Truong ROOF TRUSS DETAILER.SLURRY TANK TENDER Work Phone: Start: 03-01-2023 Myocardial spect mul tiple studies Felicity Forrest ROOF TRUSS DETAILER.PLANOGRAPH OPERATOR Work Phone: Start: 03-01-2023 Lipid 1996 panel - S karen or Plasma Felicity Forrest ROOF TRUSS DETAILER.PLANOGRAPH OPERATOR Work Phone: Start: 01-26-2023 Us breast uni real t abbi with image limited Cheyanne Cortez ROOF TRUSS DETAILER.PLANOGRAPH OPERATOR Work Phone: Start: 01-26-2023 Digital breast tomosynthesis unilateral Cheyanne Cortez ROOF TRUSS DETAILER.PLANOGRAPH OPERATOR Work Phone: Start: 12-29-2022 CT LUNG SCREEN WO IVCON Aaron Moura ROOF TRUSS DETAILER.PLANOGRAPH OPERATOR Work Phone: Start: 12-24-2022 Noninvasive ear/puls e oximetry multiple deter Aaron Moura ROOF TRUSS DETAILER.PLANOGRAPH OPERATOR Work Phone: Start: 12-20-2022 Computed tomography of abdomen and pelvis with intravenous contrast Start: 12-18-2022 Radiologic exam ches t 2 views Florina Arenas PA-C Work Phone: Start: 12-18-2022 End: 12-18-2022 Mammography Mariluz High MD Work Phone: Start: 11-23-2022 Radiologic exam ches t 2 views Cheyanne 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 Work Phone: Start: 12-11-2021 Mammography Mammograph y Coordinator Start: 11-25-2021 Nitric oxide gas determination Penny Garner MD Work Phone: Start: 11-25-2021 Brncdilat rspse spmt ry pre&post-brncdilat admn Cheyanne Dana ROOF TRUSS DETAILER.PLANOGRAPH OPERATOR Work Phone: Start: 03-25-2021 Radiologic exam knee complete 4/more views Reji Carr ROOF TRUSS DETAILER.PLANOGRAPH OPERATOR Work Phone: Start: 11-22-2020 Mammography Respirator y [facility] Work Phone: Plan of Treatment Date Care Activity Detail Author Start: 07-29-2029 Lipid panel Lipid Screening [facility] Start: 09-02-2028 Lipid panel Lipid Screening [facility] Start: 03-01-2028 Lipid 1996 panel - S karen or Plasma Lipid Screening [facility] Start: 03-01-2028 Lipid panel Lipid Screening [facility] Start: 03-01-2028 LIPID SCREEN LIPID SCREEN [facility] Start: 10-27-2027 LIPID SCREEN LIPID SCREEN [facility] Start: 07-29-2027 Diabetes Screening Diabetes Screenin [facility] Start: 11-08-2026 LIPID SCREEN LIPID SCREEN [facility] Start: 09-13-2026 Diabetes Screening Diabetes Screenin [facility] Start: 03-01-2026 DIABETES SCREEN DIABETES SCREEN [facility] Start: 03-01-2026 Diabetes Screening Diabetes Screenin g [facility] Start: 11-17-2025 Screening for malign ant neoplasm of breast Mammogram Screening [facility] Start: 10-26-2025 DIABETES SCREEN DIABETES SCREEN [facility] Start: 10-23-2025 Screening for malign ant neoplasm of lung Lung Cancer Screening [facility] Start: 08-10-2025 Annual PCP Team Wearing Apparel Folder baljeet Disease Visit Annual PCP Team Chronic Disease Visit [facility] Start: 07-11-2025 Annual PCP Team Wearing Apparel Folder baljeet Disease Visit Annual PCP Team Chronic Disease Visit [facility] Start: 03-12-2025 End: 03-12-2025 Patient encounter procedure Cat Scan Comment on above: Lung nodules [R91.8] 3 mo follow up/Lung nodules [R91.8] Start: 02-06-2025 [facility] Start: 02-06-2025 End: 02-06-2025 [facility] Start: 02-06-2025 Continuous pulse oximetry [facility] Start: 02-06-2025 Dual pressure sponta neous ventilation support [facility] Start: 02-06-2025 [facility] Start: 02-06-2025 End: 02-06-2025 Patient encounter procedure Pulmonary Medicine Comment on above: 6 month follow up Start: 01-26-2025 End: 01-26-2025 Patient encounter procedure 01/26/2025 1:00 PM EDT Office Visit Internal Medicine [place] [address] [facility] [place] [address] Mariluz High MD [address] [facility] [place] [address] 3 month follow up Internal Medicine [place] Comment on above: 3 month follow up Start: 01-08-2025 End: 01-08-2025 Patient encounter procedure 01/08/2025 12:00 PM EDT Office Visit Internal Medicine [place] [address] [facility] [place] [address] Mariluz High MD [address] [facility] [place] [address] 3 month follow up Internal Medicine [place] Comment on above: 3 month follow up Start: 11-10-2024 End: 11-10-2024 Patient encounter procedure 11/10/2024 9:00 AM EDT Office Visit Internal Medicine [place] [address] [facility] [place] [address] Mariluz High MD [address] [facility] [place] [address] 3 month follow up Internal Medicine [place] Comment on above: 3 month follow up Start: 11-08-2024 DIABETES SCREEN DIABETES SCREEN [facility] Start: 10-27-2024 End: 10-27-2024 Patient encounter procedure 10/27/2024 1:10 PM EST Appointment Mammogram [address] [place] [address] Mammogram Start: 10-26-2024 End: 10-26-2024 ambulatory 10/26/2024 11:45 AM EST Results Only [place] [facility] Laboratory [address] [place] [address] [place] [facility] Start: 10-23-2024 End: 10-23-2024 Patient encounter procedure Cat Scan Comment on above: Cigarette smoker [F1 7.210]; Encounter for screening for lung cancer [Z12.2] Start: 10-19-2024 Annual PCP Team Wearing Apparel Folder baljeet Disease Visit Annual PCP Team Chronic Disease Visit [facility] Start: 10-19-2024 BP Controlled (<130/80) BP Controlle d (<130/80) [facility] Start: 10-11-2024 End: 01-10-2025 Hepatic function 2000 panel - Serum or Plasma HEPATIC FUNCTION PNL Lab Routine Medication management Expected: 10/11/2024, Expires: 01/10/2025 [facility] Work Phone: Comment on above: Expected: 10/11/2024 , Expires: 01/10/2025 Start: 09-17-2024 BP Controlled (<130/80) BP Controlle d (<130/80) [facility] Start: 09-03-2024 Annual PCP Team Wearing Apparel Folder baljeet Disease Visit Annual PCP Team Chronic Disease Visit [facility] Start: 08-10-2024 End: 08-10-2024 Patient encounter procedure 08/10/2024 1:40 PM EST Office Visit Internal Medicine [place] [address] [place] [address] Mariluz High MD [address] [place] [address] 1 month follow up- blood pressure and memory Internal Medicine [place] Comment on above: 1 month follow up- b lood pressure and memory Start: 08-08-2024 End: 08-08-2024 Patient encounter procedure 08/08/2024 11:45 AM EST Office Visit Pulmonary Medicine [address] [place] [address] Penny Garner MD [address] [place] [address] 6 MTH F/U ASTHMA / COPD Pulmonary Medicine Comment on above: 6 MTH F/U ASTHMA / C OPD Start: 07-28-2024 End: 07-28-2024 ambulatory 07/28/2024 12:00 PM EST Results Only [place] [facility] Draw Station [address] [place] [address] [place] [facility] Draw Station Start: 07-25-2024 End: 10-24-2024 Basic metabolic 2000 panel - Serum or Plasma BASIC METABOLIC PANEL Lab Routine Essential hypertension Expected: 07/25/2024, Expires: 10/24/2024 [facility] Work Phone: Comment on above: Expected: 07/25/2024 , Expires: 10/24/2024 Start: 07-25-2024 End: 10-24-2024 Hemoglobin A1c in Blood HEMOGLOBIN A1C Lab Routine Impaired fasting glucose Expected: 07/25/2024, Expires: 10/24/2024 [facility] Comment on above: Expected: 07/25/2024 , Expires: 10/24/2024 Start: 07-25-2024 End: 10-24-2024 Lipid 1996 panel - Serum or Plasma LIPID PANEL BASIC Lab Routine Mixed hyperlipidemia Expected: 07/25/2024, Expires: 10/24/2024 [facility] Comment on above: Expected: 07/25/2024 , Expires: 10/24/2024 Start: 07-18-2024 End: 10-17-2024 PAIN PANEL, UR QUANT PAIN PANEL, UR QUANT Lab Routine Obesity, Class I, BMI 30-34.9 Expected: 07/18/2024, Expires: 10/17/2024 [facility] Comment on above: Expected: 07/18/2024 , Expires: 10/17/2024 Start: 07-18-2024 End: 10-17-2024 TOXICOLOGY SCREEN, ROUTINE URINE TOXICOLOGY SCREEN, ROUTINE URINE Lab Routine Obesity, Class I, BMI 30-34.9 Expected: 07/18/2024, Expires: 10/17/2024 [facility] Work Phone: Comment on above: Expected: 07/18/2024 , Expires: 10/17/2024 Start: 07-11-2024 End: 07-11-2024 Patient encounter procedure 07/11/2024 11:00 AM EST Office Visit Family Medicine [place] [address] [facility] [address] Sg Clemons PA-C [address] [facility] [place] [address] follow up/discuss medication not working/anxiety Family Medicine [place] Comment on above: follow up/discuss me dication not working/anxiety Start: 04-26-2024 End: 04-26-2024 Patient encounter procedure 04/26/2024 11:30 AM EDT Office Visit Pulmonary Medicine [address] [place] [address] Florina Arenas PA-C [address] [place] [facility] [address] 3 MTH F/U ASTHMA / COPD Pulmonary Medicine Comment on above: 3 MTH F/U ASTHMA / C OPD Start: 04-23-2024 Covid-19 Vaccine ( season) Covid-19 Vaccine ( season) [facility] Start: 04-23-2024 Covid-19 Vaccine ( season) Covid-19 Vaccine ( season) [facility] Start: 04-23-2024 Influenza vaccination C [facility] Start: 03-15-2024 End: 03-15-2024 Patient encounter procedure 03/15/2024 9:40 AM EDT Office Visit Internal Medicine [place] [address] [facility] [address] Cheyanne Cortez APRN.PLANOGRAPH OPERATOR [address] [facility], [place] [id number] 6 week follow up- mood and weight Internal Medicine [place] Comment on above: 6 week follow up- mo od and weight Start: 03-02-2024 BP CONTROLLED (<130/80) BP CONTROLLE D (<130/80) [facility] Start: 02-14-2024 End: 02-14-2024 Patient encounter procedure 02/14/2024 11:40 AM EDT Office Visit Internal Medicine [place] [address] [facility] [place] [address] Cheyanne Cortez APRN.PLANOGRAPH OPERATOR [address] [facility] [place] [address] 6 week follow up- mood and weight Internal Medicine [place] Comment on above: 6 week follow up- mo od and weight Start: 01-24-2024 End: 01-24-2024 Patient encounter procedure 01/24/2024 11:30 AM EDT Appointment Mammogram [address] [place] [address] Mammogram Start: 01-20-2024 End: 01-20-2024 ambulatory 01/20/2024 1:30 PM EDT OT/PT/Speech Visit [facility] [address] [place] [address] Ja Peralta, PT, DPT Lose weight [facility] Comment on above: Lose weight Start: 01-05-2024 End: 01-05-2024 Patient encounter procedure 01/05/2024 11:30 AM EDT Office Visit Pulmonary Medicine [address] [place] [address] Florina Arenas, PA-C [address] [place] [address] 6 wk follow up Pulmonary Medicine Comment on above: 6 wk follow up Start: 01-05-2024 End: 01-05-2024 ambulatory 01/05/2024 11:00 AM EDT Procedure PULM LAB [facility] [address] [place] [address] Wstr, Pulm Lab [facility] [address] [facility] [place] [address] Asthma-COPD overlap syndrome (HCC) [J44.89] PULM LAB [facility] Comment on above: Asthma-COPD overlap syndrome (HCC) [J44.89] Start: 01-03-2024 End: 01-03-2024 ambulatory 01/03/2024 10:30 AM EDT [facility] [address] [place] [address] [facility] Start: 01-03-2024 End: 01-03-2024 Patient encounter procedure 01/03/2024 7:20 AM EDT Office Visit Internal Medicine [place] [address] [facility] [place] [id number] Cheyanne Cortez APRN.PLANOGRAPH OPERATOR [address] [place] [address] 6 week follow up- mood and weight Internal Medicine [place] Comment on above: 6 week follow up- mo od and weight Start: 12-30-2023 End: 01-28-2024 CT LUNG SCREEN WO IVCON CT LUNG SCREEN WO IVCON Radiology Routine Encounter for screening for lung cancer Tobacco use current Expected: 12/30/2023, Expires: 01/28/2024 [facility] Work Phone: Comment on above: Expected: 12/30/2023 , Expires: 01/28/2024 Start: 12-30-2023 Influenza vaccination LUNG CANCER SC REENING [facility] Start: 12-30-2023 Screening for malign ant neoplasm of lung Lung Cancer Screening [facility] Start: 12-23-2023 BP CONTROLLED (<130/80) BP CONTROLLE D (<130/80) [facility] Start: 12-19-2023 BP CONTROLLED (<130/80) BP CONTROLLE D (<130/80) [facility] Start: 12-19-2023 Mammography [facility] Start: 12-19-2023 Screening for malign ant neoplasm of breast Mammogram Screening [facility] Start: 11-28-2023 ANNUAL PCP TEAM NETWORK ENGINEER ADMINISTRATOR BALJEET DISEASE VISIT ANNUAL PCP TEAM CHRONIC DISEASE VISIT [facility] Start: 11-24-2023 ANNUAL PCP TEAM NETWORK ENGINEER ADMINISTRATOR BALJEET DISEASE VISIT ANNUAL PCP TEAM CHRONIC DISEASE VISIT [facility] Start: 11-24-2023 BP CONTROLLED (<130/80) BP CONTROLLE D (<130/80) [facility] Start: 11-24-2023 COVID-19 VACCINE (#1) COVID-19 VACCI NE (#1) [facility] Comment on above: Postponed from 08/25 (Declined at this time) Start: 11-24-2023 PNEUMOCOCCAL (2 - PCV) PNEUMOCOCCAL (2 - PCV) [facility] Comment on above: Postponed from 10/26 (Declined at this time) Start: 11-24-2023 Pneumococcal vaccination [facility] Comment on above: Postponed from 10/26 (Declined at this time) Start: 11-24-2023 SHINGRIX VACCINE (1 of 2) STARKS GRIX VACCINE (1 of 2) [facility] Comment on above: Postponed from 02/22 (Declined at this time) Start: 11-24-2023 Urine microalbumin profile [facility] Comment on above: Postponed from 01/14 (Declined at this time) Start: 10-27-2023 ANNUAL PCP TEAM NETWORK ENGINEER ADMINISTRATOR BALJEET DISEASE VISIT ANNUAL PCP TEAM CHRONIC DISEASE VISIT [facility] Start: 10-27-2023 BP CONTROLLED (<130/80) BP CONTROLLE D (<130/80) [facility] Start: 09-24-2023 End: 12-24-2023 25-hydroxyvitamin D3 [Mass/volume] in Serum or Plasma VITAMIN D 25 HYDROXY Lab Routine Encounter for screening for osteoporosis Asymptomatic postmenopausal status Chronic midline low back pain without sciatica Expected: 09/24/2023, Expires: 12/24/2023 [facility] Work Phone: Comment on above: Expected: 09/24/2023 , Expires: 12/24/2023 Start: 09-02-2023 End: 11-02-2023 CBC W Auto Differential panel - Blood CBC + DIFF Lab Routine Essential hypertension Expected: 09/02/2023 (Approximate), Expires: 11/02/2023 [facility] Work Phone: Comment on above: Expected: 09/02/2023 (Approximate), Expires: 11/02/2023 Start: 09-02-2023 End: 11-02-2023 Comprehensive metabolic 2000 panel - Serum or Plasma COMP METABOLIC PANEL Lab Routine Essential hypertension Expected: 09/02/2023 (Approximate), Expires: 11/02/2023 [facility] Work Phone: Comment on above: Expected: 09/02/2023 (Approximate), Expires: 11/02/2023 Start: 09-02-2023 End: 11-02-2023 Lipid 1996 panel - Serum or Plasma LIPID PANEL BASIC Lab Routine Hyperlipidemia, unspecified hyperlipidemia type Expected: 09/02/2023 (Approximate), Expires: 11/02/2023 [facility] Work Phone: Comment on above: Expected: 09/02/2023 (Approximate), Expires: 11/02/2023 Start: 07-09-2023 COLORECTAL CANCER SCREENING COLORECTAL CANCER SCREENING [facility] Start: 07-09-2023 FECAL OCCULT BLOOD FECAL OCCULT BLOO D [facility] Start: 07-09-2023 Screening for malign ant neoplasm of colon [facility] Start: 04-23-2023 Covid-19 Vaccine ( season) Covid-19 Vaccine () [facility] Start: 04-23-2023 Influenza vaccination C [facility] Start: 03-01-2023 End: 05-01-2023 Comprehensive metabolic 1999 panel - Serum or Plasma COMP METABOLIC PANEL Lab Routine PORTILLO (dyspnea on exertion) Mixed hyperlipidemia Expected: 03/01/2023, Expires: 05/01/2023 [facility] Work Phone: Comment on above: Expected: 03/01/2023 , Expires: 05/01/2023 Start: 03-01-2023 End: 05-01-2023 Lipid 1996 panel - Serum or Plasma LIPID PANEL BASIC Lab Routine PORTILLO (dyspnea on exertion) Mixed hyperlipidemia Expected: 03/01/2023, Expires: 05/01/2023 [facility] Work Phone: Comment on above: Expected: 03/01/2023 , Expires: 05/01/2023 Start: 03-01-2023 End: 05-01-2023 Thyrotropin [Units/volume] in Serum or Plasma TSH BLD Lab Routine PORTILLO (dyspnea on exertion) Expected: 03/01/2023, Expires: 05/01/2023 [facility] Work Phone: Comment on above: Expected: 03/01/2023 , Expires: 05/01/2023 Start: 02-25-2023 ANNUAL PCP TEAM NETWORK ENGINEER ADMINISTRATOR BALJEET DISEASE VISIT ANNUAL PCP TEAM CHRONIC DISEASE VISIT [facility] Start: 2023 RSV Vaccine (1 - 1-d ose 60+ series) RSV Vaccine (1 - 1-dose 60+ series) [facility] Start: 2023 RSV Vaccine (1 - Ris k 60-74 years 1-dose series) RSV Vaccine (1 - Risk 60-74 years 1-dose series) [facility] Start: 12-11-2022 Mammography MAMMOGRAM [facility] Start: 12-05-2022 Influenza vaccination LUNG CANCER SC REENING [facility] Start: 11-30-2022 End: 01-30-2023 Natriuretic peptide.B prohormone N-Terminal [Mass/volume] in Serum or Plasma NT PRO BNP Lab Routine Chest pain, unspecified type Encounter for screening for cardiovascular disorders PORTILLO (dyspnea on exertion) Edema, unspecified type Expected: 11/30/2022, Expires: 01/30/2023 [facility] Work Phone: Comment on above: Expected: 11/30/2022 , Expires: 01/30/2023 Start: 11-25-2022 BP CONTROLLED (<130/80) BP CONTROLLE D (<130/80) [facility] Start: 11-10-2022 ANNUAL PCP TEAM NETWORK ENGINEER ADMINISTRATOR BALJEET DISEASE VISIT ANNUAL PCP TEAM CHRONIC DISEASE VISIT [facility] Start: 11-10-2022 COLORECTAL CANCER SCREENING COLORECTAL CANCER SCREENING [facility] Comment on above: Postponed from 02/22 (Declined at this time) Start: 11-10-2022 SHINGRIX VACCINE (1 of 2) STARKS GRIX VACCINE (1 of 2) [facility] Comment on above: Postponed from 02/22 (Declined at this time) Start: 11-10-2022 Urine microalbumin profile DTAP,TDAP ,TD (1 - Tdap) [facility] Comment on above: Postponed from 01/14 (Declined at this time) Start: 10-30-2022 COVID-19 VACCINE (#1) COVID-19 VACCI NE (#1) [facility] Comment on above: Postponed from 02/22 (Declined at this time) Postponed from 08/25 (Declined at this time) Start: 10-30-2022 COVID-19 VACCINE (1) COVID-19 VACCIN E (1) [facility] Comment on above: Postponed from 02/22 (Declined at this time) Start: 04-23-2022 Influenza vaccination C [facility] Start: 12-01-2021 End: 12-01-2022 SARS-CoV-2 (COVID-19) RNA [Presence] in Respiratory specimen by AVANI with probe detection PRE-PROCEDURE & PRE-OPERATIVE COVID Microbiology Routine Chest pain, unspecified type Expected: 12/01/2021, Expires: 12/01/2022 [facility] Work Phone: Comment on above: Expected: 12/01/2021 , Expires: 12/01/2022 Start: 11-25-2021 End: 01-25-2022 IgE [Units/volume] in Serum or Plasma [facility] Work Phone: Comment on above: Expected: 11/25/2021 , Expires: 01/25/2022 Start: 11-22-2021 Mammography MAMMOGRAM [facility] Start: 12-03-2018 FECAL OCCULT BLOOD FECAL OCCULT BLOO D [facility] Start: 10-27-2015 PNEUMOCOCCAL (2 - PCV) PNEUMOCOCCAL (2 - PCV) [facility] Start: 10-27-2015 Pneumococcal vaccination Pneum ococcal Vaccine (2 of 2 - PCV) [facility] Start: 10-27-2015 Pneumococcal Vaccine : 50+ (2 of 2 - PCV) Pneumococcal Vaccine: 50+ (2 of 2 - PCV) [facility] Start: 2013 Shingrix Vaccine (1 of 2) Starks grix Vaccine (1 of 2) [facility] Start: 02-23-2008 COLOGUARD (FIT-DNA) COLOGUARD (FIT-D NA) [facility] Start: 02-23-2008 Colonoscopy COLONOSCOPY [facility] Start: 02-23-[address] COLONOGRAPHY [facility] Start: 02-23-2008 Screening for malign ant neoplasm of colon [facility] Start: 02-23-2008 SIGMOIDOSCOPY SIGMOIDOSCOPY [facility] Start: 01-14-2006 Urine microalbumin profile DTa P,Tdap,Td Vaccine (1 - Tdap) [facility] Start: 1981 BP CONTROLLED (<130/80) BP CONTROLLE D (<130/80) [facility] Start: 1969 PNEUMOCOCCAL (1 - PCV) PNEUMOCOCCAL (1 - PCV) [facility] Alanine aminotransfe rase [Enzymatic activity/volume] in Serum or Plasma [facility] Albumin [Mass/volume ] in Serum or Plasma [facility] Alkaline phosphatase [Enzymatic activity/volume] in Serum or Plasma [facility] Anion gap in Serum o r Plasma [facility] End: 10-23-2024 BD DXA TRABECULAR BONE SCORE (TBS) BD DXA TRABECULAR BONE SCORE (TBS) Radiology Routine Encounter for screening for osteoporosis Asymptomatic postmenopausal status Chronic midline low back pain without sciatica 1 Occurrences starting 09/24/2023 until 10/23/2024 [facility] Work Phone: Comment on above: 1 Occurrences starti ng 09/24/2023 until 10/23/2024 Bilirubin, total measurement [facility] BUN/Creatinine ratio [facility] Calcium [Mass/volume ] in Serum or Plasma [facility] Carbon dioxide, tota l [Moles/volume] in Central venous blood [facility] Creatinine [Mass/vol ume] in Serum or Plasma [facility] End: 09-07-2025 CT Chest for screening WO contrast CT LUNG SCREEN WO IVCON Radiology Routine Cigarette smoker Encounter for screening for lung cancer 1 Occurrences starting 08/08/2024 until 09/07/2025 [facility] Work Phone: Comment on above: 1 Occurrences starti ng 08/08/2024 until 09/07/2025 End: 11-22-2025 CT Lung parenchyma WO contrast CT LUNG FOLLOWUP WO IVCON Radiology Routine Lung nodules 1 Occurrences starting 10/23/2024 until 11/22/2025 [facility] Work Phone: Comment on above: 1 Occurrences starti ng 10/23/2024 until 11/22/2025 End: 01-21-2024 CT LUNG SCREEN WO IVCON CT LUNG SCREEN WO IVCON Radiology Routine Encounter for screening for lung cancer Tobacco use current 1 Occurrences starting 12/22/2022 until 01/21/2024 [facility] Work Phone: Comment on above: 1 Occurrences starti ng 12/22/2022 until 01/21/2024 End: 12-25-2022 Ct thorax w/o contrast material CT CHEST WO IVCON Radiology Routine Shortness of breath 1 Occurrences starting 11/25/2021 until 12/25/2022 [facility] Work Phone: Comment on above: 1 Occurrences starti ng 11/25/2021 until 12/25/2022 End: 10-23-2024 DXA-AXIAL SKELETON DXA-AXIAL SKELETON Radiology Routine Encounter for screening for osteoporosis Asymptomatic postmenopausal status Chronic midline low back pain without sciatica 1 Occurrences starting 09/24/2023 until 10/23/2024 [facility] Work Phone: Comment on above: 1 Occurrences starti ng 09/24/2023 until 10/23/2024 End: 11-25-2023 ECG COMPLETE ECG COMPLETE ECG Routine Chest pain, unspecified type 1 Occurrences starting 11/24/2022 until 11/25/2023 [facility] Work Phone: Comment on above: 1 Occurrences starti ng 11/24/2022 until 11/25/2023 End: 12-01-2023 Echocardiography ECHO Cardiology Routine Chest pain, unspecified type Encounter for screening for cardiovascular disorders PORTILLO (dyspnea on exertion) 1 Occurrences starting 11/30/2022 until 12/01/2023 [facility] Work Phone: Comment on above: 1 Occurrences starti ng 11/30/2022 until 12/01/2023 Glucose [Mass/volume ] in Serum or Plasma [facility] End: 01-20-2024 ZACKERY DIAGNOSTIC LEFT ZACKERY DIAGNOSTIC LEFT Radiology Routine Abnormal mammogram 1 Occurrences starting 12/21/2022 until 01/20/2024 [facility] Work Phone: Comment on above: 1 Occurrences starti ng 12/21/2022 until 01/20/2024 End: 10-14-2023 ZACKERY SCREENING ZACKERY SCREENING Radiology Routine Encounter for screening mammogram for breast cancer 1 Occurrences starting 09/14/2022 until 10/14/2023 [facility] Work Phone: Comment on above: 1 Occurrences starti ng 09/14/2022 until 10/14/2023 Measurement of renal function [facility] End: 02-17-2025 MG Breast Screening ZACKERY SCREENING Radiology Routine Encounter for screening mammogram for breast cancer 1 Occurrences starting 01/19/2024 until 02/17/2025 [facility] Work Phone: Comment on above: 1 Occurrences starti ng 01/19/2024 until 02/17/2025 End: 11-17-2024 MG Breast Screening [facility] Work Phone: Comment on above: ONCE for 1 Occurrenc es starting 11/17/2024 until 11/17/2024 End: 12-30-2023 NM CARDIAC PERF STRESS/PHARM NM CARDIAC PERF STRESS/PHARM Radiology Routine Chest pain, unspecified type Encounter for screening for cardiovascular disorders PORTILLO (dyspnea on exertion) 1 Occurrences starting 11/30/2022 until 12/30/2023 [facility] Work Phone: Comment on above: 1 Occurrences starti ng 11/30/2022 until 12/30/2023 OXIMETRY - NOCTURNAL OXIMETRY - NOCTURNAL Procedures Routine Asthma-COPD overlap syndrome (HCC) Ordered: 11/09/2023 [facility] Work Phone: Comment on above: Ordered: 11/09/2023 End: 01-21-2024 OXIMETRY WITH AMBULATION OXIMETRY WITH AMBULATION PFT Routine Hypoxia 1 Occurrences starting 12/22/2022 until 01/21/2024 [facility] Work Phone: Comment on above: 1 Occurrences starti ng 12/22/2022 until 01/21/2024 End: 11-19-2024 OXIMETRY WITH AMBULATION OXIMETRY WITH AMBULATION PFT Routine Asthma-COPD overlap syndrome (HCC) 1 Occurrences starting 10/21/2023 until 11/19/2024 [facility] Work Phone: Comment on above: 1 Occurrences starti ng 10/21/2023 until 11/19/2024 Patient Education [facility] Work Phone: Patient referral [facility] Work Phone: Potassium measurement [facility] End: 01-17-2024 Radiologic exam chest 2 views XR CHEST 2V FRONTAL/LAT Radiology Routine Pleural effusion 1 Occurrences starting 12/18/2022 until 01/17/2024 [facility] Work Phone: Comment on above: 1 Occurrences starti ng 12/18/2022 until 01/17/2024 Radiologic exam ches t 2 views XR CHEST 2V FRONTAL/LAT Radiology Routine Pleural effusion 12/18/2022 10:55 AM EDT [facility] Work Phone: Serum chloride measurement [facility] Sodium measurement [facility] End: 08-19-2023 SPIROMETRY BASELINE ONLY SPIROMETRY BASELINE ONLY PFT Routine Asthma-COPD overlap syndrome (HCC) 1 Occurrences starting 07/20/2022 until 08/19/2023 [facility] Work Phone: Comment on above: 1 Occurrences starti ng 07/20/2022 until 08/19/2023 SPIROMETRY WITH DILA TOR IF OBSTRUCTED SPIROMETRY WITH DILATOR IF OBSTRUCTED PFT Routine Chronic obstructive pulmonary disease, unspecified COPD type (HCC) 11/25/2021 8:09 AM EDT [facility] Work Phone: End: 12-08-2024 SPIROMETRY WITH DILATOR IF OBSTRUCTED SPIROMETRY WITH DILATOR IF OBSTRUCTED PFT Routine Asthma-COPD overlap syndrome (HCC) 1 Occurrences starting 11/09/2023 until 12/08/2024 [facility] Work Phone: Comment on above: 1 Occurrences starti ng 11/09/2023 until 12/08/2024 End: 12-01-2022 STRESS ECHO TREADMILL STRESS ECHO TREADMILL Cardiology Routine Chest pain, unspecified type 1 Occurrences starting 12/01/2021 until 12/01/2022 [facility] Work Phone: Comment on above: 1 Occurrences starti ng 12/01/2021 until 12/01/2022 Total protein measurement [facility] Troponin T.cardiac [Mass/volume] in Serum or Plasma by High sensitivity method [facility] Urea nitrogen [Mass/volume] in Serum or Plasma [facility] End: 01-20-2024 US BREAST LTD LEFT US BREAST LTD LEFT Radiology Routine Abnormal mammogram 1 Occurrences starting 12/21/2022 until 01/20/2024 [facility] Work Phone: Comment on above: 1 Occurrences starti ng 12/21/2022 until 01/20/2024 End: 11-11-2024 XR Chest PA and Lateral XR CHEST 2V FRONTAL/LAT Radiology Routine Pulmonary infiltrates History of recent pneumonia 1 Occurrences starting 10/13/2023 until 11/11/2024 [facility] Work Phone: Comment on above: 1 Occurrences starti ng 10/13/2023 until 11/11/2024 [facility] Immunizations Immunization Date Immunization Notes Care Provider [facility] 08-10-2024 influenza, seasonal, injectable Mariluz High MD Work Phone: [facility] 06-16-2022 influenza virus vaccine, unspecified formulation Florina Arenas PA-C Work Phone: [facility] Work Phone: 06-04-2020 influenza, injectabl e, quadrivalent, contains preservative [facility] Work Phone: [facility] 10-13-2019 influenza, injectabl e, quadrivalent, contains preservative [facility] Work Phone: [facility] 05-02-2018 influenza, injectabl e, quadrivalent, preservative free [facility] Work Phone: [facility] 10-26-2014 pneumococcal polysaccharide vaccine, 23 valent [facility] Work Phone: [facility] 06-23-2007 influenza virus vaccine, unspecified formulation [facility] Work Phone: [facility] Work Phone: 12-15-2006 pneumococcal conjuga te vaccine, 7 valent [facility] Work Phone: [facility] Work Phone: 01-13-2006 tetanus and diphther ia toxoids, adsorbed, preservative free, for adult use (2 Lf of tetanus toxoid and 2 Lf of diphtheria toxoid) [facility] Work Phone: [facility] NEGATED: Highlighted row has not occurred!09-21-2023 influenza, injectable, quadrivalent, contains preservative Javiervernon Truong ROOF TRUSS DETAILER.SLURRY TANK TENDER Work Phone: [facility] Work Phone: Comment on above: Deferred: Postponed Payers Date Payer Category Payer Medicare HMO [facility] AARP MEDICAR E ADVANTAGE [id number] 2022 Self-pay [id number] 2022 Medicare (Managed Care) [facility] DUAL COMPLETE HMO POS SNP [id number] 2022 [facility] [id number] 2020 Medicare UHC MEDICARE UHC DUAL COMPLETE HMO SNP [id number] 2020-Present [phone] [address] [place] [address] Medicare [id number] 2020 Medicare [id number] 2019 Medicaid MEDICAID [facility] MEDICAID [id number] 2019-Present [phone] [address] [place] [address] Medicaid [id number] 2019 Medicaid [id number] 2019 Medicaid [id number] 2017 Medicare [id number] 2015 Medicare MEDICARE PART A B [id number] [facility] [id number] Social History Date Type Detail Facility Start: 11-25-2021 End: 02-06-2025 Tobacco smoking status NHIS Smokes tobacco daily [facility] Work Phone: Start: 08-23-1980 History of tobacco use Cigarette Smoker [facility] Work Phone: Start: 11-25-2021 End: 10-23-2024 Alcohol intake Current non-drinker of alcohol (finding) [facility] Start: 04-12-2020 End: 10-22-2022 History SDOH Alcohol Frequency 2 [facility] Start: 04-12-2020 End: 01-10-2021 History SDOH Alcohol Std Drinks 1 [facility] Start: 05-31-2020 End: 10-22-2022 History SDOH Social Connections Phone 4 [facility] Start: 10-12-2019 Education 12 [facility] Start: 11-25-2021 Tobacco Comment Did not smoke during pregnancies. Former 2 ppd smoker [facility] Start: 1965 Sex Assigned At Female [facility] Start: 02-11-2021 End: 02-18-2022 Exposure to SARS-CoV-2 (event) Not sure [facility] Start: 02-15-2022 End: 02-25-2022 Exposure to SARS-CoV-2 (event) Unable to assess [facility] Start: 11-25-2021 End: 01-04-2023 Cigarettes smoked current (pack per day) - Reported 0.5 [facility] Start: 11-25-2021 End: 10-23-2024 Tobacco use and exposure Smokeless tobacco non-user [facility] Work Phone: Start: 07-20-2022 Tobacco Comment Did not smoke during pregnancies. Former 2 ppd smoker. Less than 1/2ppd 07/20/22 [facility] Start: 10-22-2022 History SDOH Social Connections Phone 5 [facility] Start: 10-22-2022 History SDOH Social Connections Get Together 3 [facility] Start: 10-22-2022 History SDOH Social Connections [employer] 98 [facility] Start: 12-20-2022 Tobacco smoking status NHIS Unknown if ever smoked [facility] Start: 12-22-2022 Tobacco Comment Did not smoke during pregnancies. Former 2 ppd smoker. Less than 1/2ppd 12/22/2022 [facility] Start: 10-21-2022 End: 01-04-2023 Social connection and isolation panel [facility] How often do you att end mu-ism or denominational services? Patient refused [facility] Do you belong to any clubs or organizations such as mu-ism groups, unions, fraternal or athletic groups, or school groups? No [facility] Are you now , , , , never or living with a partner? [facility] How often to you hav e a drink containing alcohol? Monthly or less [facility] How many standard dr inks containing alcohol do you have on a typical day? 1 or 2 [facility] How often do you hav e 6 or more drinks on 1 occasion? Never [facility] How hard is it for y ou to pay for the very basics like food, housing, medical care, and heating Somewhat hard [facility] Do you feel stress - tense, restless, nervous, or anxious, or unable to sleep at night because your mind is troubled all the time - these days [OSQ] Very much [facility] (I/We) worried whegersno er (my/our) food would run out before (I/we) got money to buy more. Sometimes true [facility] The food that (I/we) bought just didn't last, and (I/we) didn't have money to get more. DK or Refused [facility] Start: 05-31-2020 Gender identity Identifies as female gender (finding) [facility] Start: 05-31-2020 Sexual orientation Heterosexual (finding) [facility] How often do you hav e 6 or more drinks on 1 occasion? Less than monthly [facility] Do you feel stress - tense, restless, nervous, or anxious, or unable to sleep at night because your mind is troubled all the time - these days [OSQ] To some extent [facility] How hard is it for y ou to pay for the very basics like food, housing, medical care, and heating Not very hard [facility] Do you feel stress - tense, restless, nervous, or anxious, or unable to sleep at night because your mind is troubled all the time - these days [OSQ] Only a little [facility] The food that (I/we) bought just didn't last, and (I/we) didn't have money to get more. Never true [facility] Start: 11-26-2014 Tobacco Comment Did not smoke during pregnancies. [facility] Start: 1965 Sex assigned at Not on file [facility] Start: 06-16-2024 Sex Female (finding) [facility] Start: 08-08-2024 Tobacco Comment Did not smoke during pregnancies. Former 2 ppd smoker. Less than 1/2ppd 08/08/2024 [facility] Medical Equipment Procedure Code Equipment Code Equipment Origin al Text Equipment Identifier Dates Use one needle p er dose. 1 per day. [id number] Start: 03-15-2023 End: 01-05-2024 Comment on above: Use one needle per d ose. 1 per day. Functional Status Date Assessment Result Facility 01-12-2025 Total score [AUDIT-C] 2 01/13/20 7:15 AM EDT User, Christinat [facility] 01-12-2025 How often to you hav e a drink containing alcohol? Monthly or less 01/12/2025 7:15 AM EDT User, Mychart Monthly or less [facility] 01-12-2025 Functional status Patient does n ot drink 01/12/2025 7:15 AM EDT User, Christinat Patient does not drink [facility] 01-12-2025 How often do you hav e 6 or more drinks on 1 occasion? Less than monthly 01/12/2025 7:15 AM EDT User, Christinat Less than monthly [facility] 02-19-2015 Are you deaf, or do you have serious difficulty hearing No 02/19/2015 10:18 AM Lexy Bruce MA No [facility] 02-19-2015 Are you blind, or do you have serious difficulty seeing, even when wearing glasses No 02/19/2015 10:18 AM Lexy Bruce MA No [facility] 02-19-2015 Do you have serious difficulty walking or climbing stairs No 02/19/2015 10:18 AM Lexy Bruce MA No [facility] 02-19-2015 Do you have difficul ty dressing or bathing No 02/19/2015 10:18 AM Lexy Bruce, MA No [facility] 02-19-2015 Because of a physica l, mental, or emotional condition, do you have difficulty doing errands alone such as visiting a physician's office or shopping No 02/19/2015 10:18 AM EDT Lexy Cowart MA No [facility] Mental Status Date Assessment Result Facility 02-19-2015 Because of a physica l, mental, or emotional condition, do you have serious difficulty concentrating, remembering, or making decisions No 02/19/2015 10:18 AM EDT Lexy Cowart MA No [facility] Clinical Notes 04-08-2013 to 02-06-2025 Note Date & Type Note Facility 02-06-2025 Discharge summary [facility] 02-06-2025 Discharge summary Note Date/Time February 06, 2025 9:47pm [facility] Medical Records Department [address] [place] [address] Emergency Department Summary 02/06/25 MR#: [id number] Acct: [id number] Name: FRANCIS DIEZ Rep #:[id number] : 1965 59 From: Mason Styles MD PCP: TIFFANIE Orellana Status:REG ER Location: ED HPI History of Present Illness Chief Complaint: Shortness of Breath Detail of Chief Complaint: Hypoxia, difficulty breathing, wheezing and nonproductive cough Informant: patient Onset/Context/Timing Onset: Today (Suddenly worse today otherwise gradual) Timing: Continuous and Waxes and wanes Quality: Hypoxia with reading in the 60s on home oxygen 5 L Location: Respiratory Current Severity: Mild Maximum Severity: Severe Worsened by: Activity Relieved by: Uncertain Associated Symptoms Associated Symptoms: Nonproductive cough and wheezing. She is on inhalers at home. Narrative Narrative: Patient is a 59-year-old female who presents because of low pulse ox, nonproductive cough and altered mental status. Apparently took some time to gether oxygen saturation above 90%. She states she is here because of low oxygen. She is on hospice however she is a full go. Specifically discussed if she has aliving well, CPR, and invasive ventilation i.e. intubation etc. She wants everything done. Patient denies fever or chills. She denies rhinorrhea, congestion postnasal drainage. She denies sore throat. She states yesterday she had some left sidedchest pain or maybe heartburn. She has no known history of coronary artery disease. She states she sees Dr. Sanju Garner. I do not see any office notes from pulmonary in the last 2 to 3 years. Prior similar symptoms: Yes (Now with respect to the left-sided chest pain) Recent Illness/Hospitalization: Yes (Last ED visit was November 2022 for diverticulitis.) [facility] Medical History COPD (chronic obstructive pulmonary disease) Home Medications ?Medication ?Instructions ?Recorded ?Last Taken ?Type albuterol sulfate 2.5 mg/3 mL 2.5 mg inhalation Q4H NE N PRN 12/20/22 Unknown History (0.083 %) solution for nebulization wheezing/sob albuterol sulfate 90 mcg/actuation 90 mcg inhalation Q 4H PRN PRN 12/20/22 Unknown History aerosol inhaler wheezing/sob budesonide-formoterol HFA 160 2 inh inhalation BID Unknown History mcg-4.5 mcg/actuation aerosol inhaler (Symbicort) bupropion HCl 300 mg 24 hr tablet, 300 mg PO DAILY Unknown History extended release ciprofloxacin HCl 500 mg tablet 500 mg PO BID #20 tabs 12/20/22 Unknown Rx (Cipro) fluticasone propionate 50 2 spray intranasal DAILY Unknown History mcg/actuation nasal spray,suspension furosemide 20 mg tablet 20 mg PO DAILY 12/20/22 Unkn own History hydrochlorothiazide 25 mg tablet 25 mg PO DAILY Unknown History ipratropium bromide 0.02 % 2.5 ml inhalation Q6H PRN P RN 12/20/22 Unknown History solution for inhalation wheezing/sob lorazepam 0.5 mg tablet 0.5 mg PO DAILY 12/20/22 Unk nown History metronidazole 500 mg tablet 500 mg PO TID #30 tabs Unknown Rx nitroglycerin 0.4 mg sublingual 0.4 mg sublingual Q5M PRN Chest 12/20/22 Unknown History tablet Pain ondansetron 4 mg disintegrating 4 mg PO Q8H PRN PRN Na usea #10 tabs 12/20/22 Unknown Rx tablet oxycodone-acetaminophen 5 mg-325 1 tab PO Q8H PRN pain 3 days #10 12/20/22 Unknown Rx mg tablet (Percocet) tabs potassium chloride 10 mEq 10 meq PO BID 12/20/22 Unkno wn History capsule,extended release rosuvastatin 5 mg tablet 5 mg PO QHS 12/20/22 Unknown History sertraline 50 mg tablet 50 mg PO DAILY 12/20/22 Unkn own History trazodone 100 mg tablet 300 mg PO DAILY 12/20/22 Unk nown History doxycycline monohydrate 100 mg 100 mg PO BID #14 CAPSU LES 02/06/25 Unknown Rx capsule prednisone 20 mg tablet 60 mg (3 x 20 mg) PO DAILY # 15 02/06/25 Unknown Rx TABLETS Allergy/AdvReac Type Severity Reaction Status Date / Time diphenhydramine HCl (From Allergy Anaphylaxis Verified 02/06/25 19:27 Benadryl) Penicillins Allergy Rash Verified 02/06/25 19:27 Social History Smoking Status: Current every day smoker tobacco type: cigarettes ROS ROS ED Constitutional Constitutional ED: Denies chills, fever(s), subjective or sweats Eyes Eyes: Denies blurry vision, change in vision or diplopia ENT ENT ED: Denies ear pain, rhinorrhea or sore throat Cardiovascular Cardiovascular: Reports chest pain and orthopnea; Denies palpitations, paroxysmal nocturnal dyspnea or racing heartbeat Respiratory/Chest Respiratory/Chest: Reports cough, dyspnea, dyspnea on exertion, orthopnea and other Details: Patient has stable 4 pillow orthopnea. ; Denies paroxysmal nocturnal dyspnea or sputum Gastrointestinal Gastrointestinal: Denies abdominal pain, constipation, diarrhea, melena, nausea or vomiting Musculoskeletal Musculoskeletal: Denies arthralgias, back pain, myalgias or neck pain Integumentary Denies rash Neurologic Neurologic: Reports weakness Psychiatric Psychiatric: Denies anxiety Hematologic/Lymphatic Hematologic/Lymphatic: Reports systems reviewed and no addt'l complaints, exceptas documented EXAM Physical Exam Const Vital Signs: 02/06/25 19:26 Temperature 95.9 F L Temperature Source Temporal Pulse Rate 68 Respiratory Rate 26 H Blood Pressure 134/79 H Blood Pressure Mean 97 Pulse Ox 97 Oxygen Delivery Method Nasal Cannula Oxygen Flow Rate (L/min) 5 Positive well nourished and well developed General Appearance ED: well developed; Negative for cyanotic, diaphoretic, NAD or pallor HEENT Reports TM's clear and moist mucous membranes; Denies dry mucous membranes Negative for trauma or tenderness Tympanic Membrane ED: Yes TM's clear Mouth ED: No dry mucous membranes Mouth: No dry mucous membranes Eyes PERRL and EOMs intact bilaterally General Eye ED: Negative for pale conjunctiva or scleral icterus Neck no lymphadenopathy, supple and no JVD Chest Wall inspection of chest normal and palpation of chest normal Resp No normal respiratory effort and No clear to auscultation bilaterally Resp Narrative: Mild use of accessory muscles. There is no retractions. Patient has expiratorywheezing throughout. There is rales noted at the bases as well. Cardio regular rate, regular rhythm, S1 normal heart sound, S2 normal heart sound and no murmurs GI normal to inspection, nondistended, normoactive bowel sounds, non-tender, non-distended and no masses; Negative for hepatosplenomegaly Back/Spine no CVA tenderness Extremity normal to inspection Extremity Narrative: There is no discoloration, swelling, asymmetry, leg vein distention, palpable cords tenderness on the distribution deep venous system. General Extremety ED: Yes edema General Extremity: edema Neuro oriented x3 and CN's II-XII intact bilaterally Sensorium / Orientation: alert Psych mental status grossly normal Skin no rashes or lesions noted, no wounds and skin turgor normal General Skin Exam: Negative for jaundice or pallor MDM MDM MDM Narrative Medical decision making narrative: Differential diagnosis exacerbated COPD with bronchospasm due to viral versus bacterial infection. Pneumonia exacerbating her COPD/bronchiectasis, because ofher altered mental status obtain ABG to assess pH, CO2 and AA gradient. CBC wasobtained assess white count and differential as well as H&H to rule out anemia since she appears pale. Competence of metabolic panel and lactate to assess forendorgan dysfunction. Patient was treated with DuoNeb followed by albuterol andsince she is presently on prednisone she received 125 mg dose of Solu-Medrol since she is stressed and need to consider adrenal insufficiency. As well as exacerbation of her COPD History & Record Review Additional record(s) reviewed:: Prior outpatient record Lab Data Labs: Laboratory Results - last 24 hr 02/06/25 21:03 WBC 9.1 RBC 5.34 Hgb 16.1 H Hct 53.2 H MCV 99.6 H MCH 30.1 MCHC 30.3 L RDW Std Deviation 56.4 H RDW Coeff of Clemente 15.1 H Plt Count 252 MPV 9.5 Immature Gran % (Auto) 0.400 Neut % (Auto) 59.1 Lymph % (Auto) 29.4 [place] % (Auto) 8.2 Eos % (Auto) 2.4 Baso % (Auto) 0.5 Absolute Neuts (auto) 5.4 Absolute Lymphs (auto) 2.68 Nucleated RBC % 0 Sodium Cancelled Potassium Cancelled Chloride Cancelled Carbon Dioxide Cancelled Anion Gap Cancelled BUN Cancelled Creatinine Cancelled Estim Creat Clear Calc Cancelled Est GFR (MDRD) Non-Af Cancelled BUN/Creatinine Ratio Cancelled Glucose Cancelled Calcium Cancelled Total Bilirubin Cancelled AST Cancelled ALT Cancelled Alkaline Phosphatase Cancelled Total Protein Cancelled Albumin Cancelled Globulin Cancelled Albumin/Globulin Ratio Cancelled ABG Data ABG results: ABG 02/06/25 21:04 Specimen Type ART Sample Site L Radial pH 7.29 L Bicarbonate Actual 39.8 H Total CO2 42 Base Excess 13 H O2 Saturation 90 L O2 % 5.0 ABG pCO2 83.6 H* ABG pO2 68 L O2 Delivery Device Not entered Vent Mode Not entered Crit Call To/Read Back Yes Treatment and Re-Evaluation :: Respiratory therapist told me she declined BiPAP. X-ray tax map technician told me she declined x-ray. When I entered the room to ask why she is declining treatment and imaging she was on the phone with Harman Reynoso. He was placed on speaker phone per her request. He informing that she does not want invasive ventilationi.e. life support. She presently is declining BiPAP. She was informed of risksinvolved. In my professional medical opinion patient has capacity to decline medical treatment and admission to the hospital and truly understands the risks. Critical Care Time Critical Care Time: Yes Critical care time (excluding procedures): 30-74 minutes (22), Including time spent: (History, physical, documentation, interpretation of ABG which reveals acute on chronic hypercapnia and hypoxia with evidence of respiratory acidosis.), Discussing w/Patient &/or Family/Credit Cashier (Patient and friend) andPerforming Direct Patient Care at Bedside Discharge Plan Triage Chief Complaint: Shortness of Breath ED Provider: Mason Styles Dx/Rx/DC Orders Clinical Impression: Acute on chronic respiratory failure with hypoxia and hypercapnia, Acute bronchospasm, Lymphedema, Left-sided chest pain, DNR (do not resuscitate) discussion, DNR no code (do not resuscitate), History of coronary artery disease Instructions: ED COPD Flare Prescriptions: New prednisone 20 mg tablet 60 mg PO DAILY Qty: 15 0RF doxycycline monohydrate 100 mg capsule 100 mg PO BID Qty: 14 0RF No Action potassium chloride 10 mEq capsule, extended release 10 meq PO BID albuterol sulfate 2.5 mg /3 mL (0.083 %) solution for nebulization 2.5 mg inhalation Q4H PRN PRN (Reason: wheezing/sob) Patient Comments: Use 3 mL via nebulizer every 4 hours as needed for wheezing/shortness of breath. J44.9 lorazepam 0.5 mg tablet 0.5 mg PO DAILY trazodone 100 mg tablet 300 mg PO DAILY nitroglycerin 0.4 mg Tablet, Sublingual 0.4 mg SUBLINGUAL Q5M PRN (Reason: Chest Pain) Rx Instructions: do not exceed 3 doses per episode hydrochlorothiazide 25 mg tablet 25 mg PO DAILY furosemide 20 mg tablet 20 mg PO DAILY albuterol sulfate 90 mcg/actuation HFA aerosol inhaler 90 mcg INHALATION Q4H PRN PRN (Reason: wheezing/sob) Patient Comments: Inhale 2 Puffs as instructed every 4 hours as needed for wheezing/shortness of breath. fluticasone propionate 50 mcg/actuation spray,suspension 2 spray INTRANASAL DAILY sertraline 50 mg tablet 50 mg PO DAILY ipratropium bromide 0.02 % solution 2.5 ml inhalation Q6H PRN PRN (Reason: wheezing/sob) rosuvastatin 5 mg tablet 5 mg PO QHS Patient Comments: Take 1 tablet by mouth daily at bedtime. bupropion HCl 300 mg tablet extended release 24 hr 300 mg PO DAILY budesonide-formoterol [Symbicort] 160-4.5 mcg/actuation HFA aerosol inhaler 2 inh INHALATION BID oxycodone-acetaminophen [Percocet] 5-325 mg tablet 1 tab PO Q8H PRN (Reason: pain) 3 Days Qty: 10 0RF ondansetron 4 mg tablet,disintegrating 4 mg PO Q8H PRN PRN (Reason: Nausea) Qty: 10 0RF ciprofloxacin HCl [Cipro] 500 mg tablet 500 mg PO BID Qty: 20 0RF metronidazole 500 mg tablet 500 mg PO TID Qty: 30 0RF Primary Care Provider: Reji Carr NP Referrals: Reji Carr INTERPRETER, INTERPRETER-C [Primary Care Provider] - As soon as possible Activity Restrictions/Additional Instructions: I have been informed by Dr. Styles that I am seriously ill and need to be admitted to the hospital. I have declined treatment, x-ray, and wish to go home. I have been informed this may result in more invasive treatment and prolonged treatment by leaving AGAINST MEDICAL ADVICE. I have been informed this may result in me requiring respiratory support, inability to perform 1 or more activities of daily living, which was explained to me, need an feeding tube, seizure disorder, fall resulting in injury to my brain or bones, semivegetative the vegetative state or . I understand these risks and I amwilling to take this risk. Print Language: Portuguese Disposition Disposition: Against Medical Advice Capacity Capacity Assessment Tool MEDICAL HOLD INDICATED IF YES TO ALL 3 QUESTIONS BELOW: Since patient has capacity even though she is at risk to herself and is demanding to leave hospital she signed out AGAINST MEDICAL ADVICE. Patient lacks Decision Making Capacity: unable to understand, reason and deliberate health related choices: No Risk to self and or others?: Yes Risk of leaving the patient care unit and or hospital?: Yes What to do if you have Problems For any increased pain, shortness of breath, bleeding, nausea or vomiting, chestpain, or any unexpected problems, contact your Primary Care Provider. Call [facility] ([phone]) or report to the closest Emergency Room. Call 911 if necessary. 02/06/252146 <Electronically signed by Mason Styles MD> Cosigner Signature (if applicable): CC: INTERPRETER-C Reji Carr ~ Signed [facility] Work Phone: 1(853) 325-409304-01-2025 Telephone encounter Note* Telephone Encounter - Aaron Moura APRN.CNP - 11/21/2024 3:49 PM EDT Left message for pt to give an update. Sent My Chart. Aaron Moura APRN.PLANOGRAPH OPERATOR [facility]04-01-2025 Miscellaneous Notes* Telephone Encounter - Aaron Moura APRN.CNP - 11/21/2024 3:49 PM EDT Left message for pt to give an update. Sent My Chart. Aaron Moura APRN.CNP * Telephone Encounter - Aaron Moura APRN.CNP - 11/02/2024 4:34 PM EDT Left message requesting pt to call back with update on recent illness. Aaron Moura APRN.CNP documented in [facility] NoteHNO ID: [id number] Author: CHIOMA NICHOLE HUC Service: ? Author Type: Case Management Specialist Type: Progress Notes Filed: 11/21/2024 13:03 Note Text: [facility] LUNG CANCER SCREENING FOLLOWUP ADVANCED: Diagnosis: Lung Nodule Recommendation: CT Scan Follow Up Due Date: 03/12/2025 All Follow Up Scheduled: Yes Pulmonary Follow Up Type: Lung Nodule Surveillance Patient should be added to the Lung Cancer Screening Followup Report: No Lung Cancer Screening Program Location: [place] 11-21-2024 History of Present illness Narrative* Chioma Nichole HUC - 11/21/2024 1:02 PM EDT [facility] LUNG CANCER SCREENING FOLLOWUP ADVANCED: Diagnosis: Lung Nodule Recommendation: CT Scan Follow Up Due Date: 03/12/2025 All Follow Up Scheduled: Yes Pulmonary Follow Up Type: Lung Nodule Surveillance Patient should be added to the Lung Cancer Screening Followup Report: No Lung Cancer Screening Program Location[facility] documented in [facility] NotePatient Outreach (PULMMN) FRANCIS DIEZ ([id number]) 1965 F Date Time Provider Department 11/21/24 CHIOMA NICHOLE During your visit today, we recorded the following information about you: Chioma Nichole HUC 11/21/2024 1:03 PM Signed [facility] LUNG CANCER SCREENING FOLLOWUP ADVANCED: Diagnosis: Lung Nodule Recommendation: CT Scan Follow Up Due Date: 03/12/2025 All Follow Up Scheduled: Yes Pulmonary Follow Up Type: Lung Nodule Surveillance Patient should be added to the Lung Cancer Screening Followup Report: No Lung Cancer Screening Program Location: [facility] Allergies As of Date: 11/21/2024 Noted Allergy Reaction BENADRYL (DIPHENHYDRAMINE HCL) 11/13/2014 12 - Shortness of Breath Comments: She is not sure of the reaction. Was given it in the ER years ago. PENICILLINS 09/01/2010 4 - Hives Date Reviewed: 10/23/2024 Reviewed by: Aaron Moura APRN.PLANOGRAPH OPERATOR - Fully Assessed Prescriptions as of 11/21/2024 - albuterol (PROVENTIL) 2.5 mg /3 mL (0.083 %) nebulizer solution Use 3 mL via nebulizer every 4 hours as needed for wheezing/shortness of breath. J44.9 - ipratropium (ATROVENT) 0.02 % nebulizer solution Use 2.5 mL via nebulizer four times a day as needed. OVER 5-15 MINUTES FOR WHEEZING OR SHORTNESS OF BREATH J44.9 - cholecalciferol (VITAMIN D3) 1,000 unit tab tablet Take 1 tablet by mouth once daily. - mirabegron (MYRBETRIQ) 25 mg Tb24 Take 1 tablet by mouth once daily. - semaglutide (OZEMPIC) 0.25 mg or 0.5 mg (2 mg/3 mL) pen Inject 0.5 mg subcutaneously one time a week. - potassium chloride SR (MICRO-K) 10 mEq CR capsule Take 1 capsule by mouth three times a day. - buPROPion XL (WELLBUTRIN XL) 300 mg 24 hr tablet Take 1 tablet by mouth once daily. - pgznhtlgvlu-vplhgpalv-mmeaktkk (TRELEGY ELLIPTA) 200-62.5-25 mcg inhalation powder Inhale 1 Puff as instructed once daily. - DULoxetine (CYMBALTA) 60 mg capsule Take 1 capsule by mouth once daily. - montelukast (SINGULAIR) 10 mg tablet take 1 tablet by mouth once daily. - benzonatate (TESSALON PERLE) 100 mg capsule take 1 capsule by mouth three times daily as needed for cough - albuterol HFA (VENTOLIN HFA) 90 mcg/actuation inhaler Inhale 2 Puffs as instructed every 4 hours as needed for wheezing/shortness of breath. - traZODone (DESYREL) 100 mg tablet TAKE 3 TABLETS EVERY DAY - furosemide (LASIX) 40 mg tablet Take 1 tablet by mouth once daily. - rosuvastatin (CRESTOR) 5 mg tablet Take 1 tablet by mouth daily at bedtime. - cyclobenzaprine (FLEXERIL) 10 mg tablet Take 1 tablet by mouth at bedtime as needed for muscle spasm or pain. - spironolactone (ALDACTONE) 25 mg tablet Take 1 tablet by mouth once daily. - nitroglycerin sublingual (NITROQUICK) 0.4 mg SL tablet Dissolve 1 tablet under the tongue as needed. FOR CHEST PAIN. IF NO RELIEF CALL 911 - COMPOUNDED PRESCRIPTION Oxygen 2L at night and as needed - COMPOUNDED PRESCRIPTION Nebulizer machine DX: 496/143.90 Problem List As Of Date 11/21/2024 Noted Resolved COPD with chronic bronchitis (HCC) [J44.89] 07/08/2005 Essential hypertension [I10] 07/08/2005 Unspecified asthma(493.90) [J45.909] 07/08/2005 11/26/2014 HYPOPOTASSEMIA [E87.6] 07/09/2005 Major depressive disorder [F32.9] 07/09/2005 Palpitations [R00.2] 04/22/2006 10/26/2014 INSOMNIA NOS [G47.00] 05/24/2006 VENOUS INSUFFICIENCY NOS [I87.2] 05/24/2006 BRONCHIECTASIS W/O ACUTE EXACERBATN [J47.9] 10/04/2008 Impaired fasting glucose [R73.01] 12/05/2010 Cholecystitis with cholelithiasis [K80.10] 04/08/2013 10/26/2014 Tobacco use [Z72.0] 10/26/2014 Nocturnal oxygen desaturation [G47.34] 10/26/2014 Family history of colon cancer [Z80.0] 11/09/2014 Primary insomnia [F51.01] 11/26/2015 Anxiety [F41.9] 02/10/2018 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 FALL SCREENING: Has the patient had 2 falls in the last year or 1 fall with injury or currently using an Ambulatory Assistive Device (Walker, Cane, Wheelchair, Crutches, etc.)? No PATIENT GENDER DATA: Assigned female at . status: : No status:NO. PATIENT RELEVANT IMPLANT DATA REVIEWED: Not Applicable PATIENT PRESENTS WITH AN IMPLANTABLE OR ATTACHED SAFETY COORDINATOR: No RADIOLOGY DEPARTMENT: Mammography PERIPHERAL IV DATA: Not applicable SIGNED BY: RT Kaveh(R) November 17, 2024 1:46 PM documented in this encounterL[facility]25 NoteHNO ID: [id number] Author: VALERIA BARCLAY RT(R) Service: ? Author Type: Technologist Type: Progress Notes Filed: 11/17/2024 13:46 Note Text: Radiology Service Progress Note PATIENT NAME: Francis Diez DATE OF SERVICE: November 17, 2024 TIME: 1:46 PM PATIENT IDENTITY VERIFICATION COMPLETED USING TWO (2) IDENTIFIERS: Name and Date of confirmed by patient verbally. FALL SCREENING: Has the patient had 2 falls in the last year or 1 fall with injury or currently using an Ambulatory Assistive Device (Walker, Cane, Wheelchair, Crutches, etc.)? No PATIENT GENDER DATA: Assigned female at . status: : No status: NO. PATIENT RELEVANT IMPLANT DATA REVIEWED: Not Applicable PATIENT PRESENTS WITH AN IMPLANTABLE OR ATTACHED SAFETY COORDINATOR: No RADIOLOGY DEPARTMENT: Mammography PERIPHERAL IV DATA: Not applicable SIGNED BY: RT Kaveh(R) November 17, 2024 1:46 [facility]03-13-2025 Telephone encounter Note* Telephone Encounter - Aaron Moura APRN.CNP - 11/02/2024 4:34 PM EDT Left message requesting pt to call back with update on recent illness. Aaron Moura APRN.CNP [facility]03-06-2025 NoteHNO ID: [id number] Author: AARON MOURA APRN.CNP Service: ? Author Type: Nurse Practitioner Type: Progress Notes Filed: 10/26/2024 11:11 Note Text: [facility] POP LUNG CANCER SCREENING FOLLOWUP ADVANCED: Diagnosis: Lung Nodule Recommendation: CT Scan Follow Up Due Date: 01/26/2025 All Follow Up Scheduled: No Pulmonary Follow Up Type: Lung Nodule Surveillance Patient should be added to the Lung Cancer Screening Followup Report: Yes Lung Cancer Screening Program Location: [place] 10-23-2024 Instructions* Patient Instructions* Aaron Moura APRN.CNP - 10/23/2024 2:04 PM EST No new lung nodules were noted, but you did have new opacities in the left upper lobe and right lower lobe that look like infection. You described symptoms consistent with this. Treatment was sent for you to the pharmacy. The plan is to repeat CT in 8 weeks with follow up after. If you have any worsening symptoms please go to the ER. Continue to monitor your oxygen, and if it is below 90% persistently despite using rescue medications at home. Go to the emergency room. documented in this encounterL[facility]03-03-2025 NoteHNO ID: [id number] Author: AARON MOURA APRN.CNP Service: ? Author Type: Nurse Practitioner Type: Progress Notes Filed: 11/02/2024 16:38 Note Text: LUNG SCREENING ANNUAL VISIT PRIMARY CARE PHYSICIAN: Mariluz High MD PULMONARY PROVIDER: Dr. Minh Garner Results will be communicated via letter or electronic record if applicable. Visit Delivery: In Person Patient Visit Type: established Current or Ex-smoker? [Current Exam Type: annual LDCT Number of Pack Years: 86 Current smoker (=0) The patient's smoking history is similar to prior year shared decision visit. The reason for the discrepancy is NA Chief Complaint: Established patient in lung cancer screening program here for annual follow-up. Impression / Recommendations Francsi Diez presents for annual lung cancer screening annual exam and nodule evaluation. Plan: Indeterminate pulmonary nodules: No previously identified nodules. However, new opacities in RADHA and RLL. Pt has chronic hemidiaphram elevation on the left. Nature of the lung nodule(s) and the options for further evaluation discussed in detail with patient. Francis Diez expressed understanding and is in agreement with plan. 2. Encounter for screening for malignant neoplasm of respiratory organs I have determined that the patient is eligible for continued low dose CT screening based on age, absence of signs or symptoms of lung cancer, smoking history and total pack years. The patient was counseled on the importance of adherence to annual LDCT lung cancer screening, impact of comorbidities and ability or willingness to undergo diagnosis and treatment. The patient understands and feels comfortable with it: Yes. 3. Nicotine Dependence The patient was counseled on the importance of smoking cessation if current smoker and, if appropriate, offered additional tobacco cessation counseling services - Smoking Cessation Counseling. 4. Pneumonia of both lungs due to infectious organism, unspecified part of lung Recommended treatment with antibiotics and prednisone taper. If new or worsening symptoms she should follow up with PCP or superintendent transportation. If decrease in oximetry she should present to the ER. - predniSONE (DELTASONE) 10 mg tablet; Take 5 tablets by mouth once daily for 3 days, THEN 4 tablets once daily for 3 days, THEN 3 tablets once daily for 3 days, THEN 2 tablets once daily for 3 days, THEN 1 tablet once daily for 3 days. Dispense: 45 tablet; Refill: 0 - levoFLOXacin (LEVAQUIN) 500 mg tablet; Take 1 tablet by mouth once daily for 5 days. Dispense: 5 tablet; Refill: 0 5. COPD with exacerbation (HCC) see above - albuterol (PROVENTIL) 2.5 mg /3 mL (0.083 %) nebulizer solution; Use 3 mL via nebulizer every 4 hours as needed for wheezing/shortness of breath. J44.9 Dispense: 3 mL; Refill: 5 - ipratropium (ATROVENT) 0.02 % nebulizer solution; Use 2.5 mL via nebulizer four times a day as needed. OVER 5-15 MINUTES FOR WHEEZING OR SHORTNESS OF BREATH J44.9 Dispense: 2.5 mL; Refill: 5 SMOKING CESSATION COUNSELING-deferred I spent a total of 30 minutes on the date of the service which included preparing to see the patient, [id number] patient care, completing clinical documentation, performing a medically appropriate examination, counseling and educating the patient/family/caregiver, ordering medications, tests, or procedures, communicating with other HCPs (not separately reported), independently interpreting results (not separately reported), communicating results to the patient/family/caregiver, and care coordination (not separately reported). Aaron Moura APRN.[facility] October 23, 2024 1:32 PM History of Present Illness: Francis Diez is a 59 year old female who is presenting today for annual lung cancer screening LDCT and nodule surveillance/management. Patient has no lung nodules found on previous lung cancer screening LDCT. Last LDCT was performed on 12/29/2022 and was LUNG RADS Category 1. Previous potentially significant incidental findings on imaging: None. Patient is a current smoker with a 86 pack year history. Patient is currently still smoking 0.25 packi cigarettes daily. Patient will continue to be eligible for lung cancer screening until age 75. Started x 3 weeks ago with feeling run down, runny nose, and cough. Cough persistent still. Took some prednisone last week-20 mg 2 a day for 4 days, then 1 a day for 3 days. Using inhalers and not helping much. Feeling more short of breath, having coughing jags, green sputum, wheezing. No nausea or vomiting. Having some sweats. Pulse ox 84% with oxygen on at 2L. Stays down for couple hours. Stopped checking it. Modified Medical Research [place] Dyspnea Scale (MMRC) I am too breathless to leave the house or I am breathless when dressing 4 Last 12 Encounter Wt R (more content not included)...[facility] 10-23-2024 History of Present illness Narrative* Aaron Moura APRN.PLANOGRAPH OPERATOR - 10/23/2024 1:32 PM EST Images from the original note were not included. LUNG SCREENING ANNUAL VISIT PRIMARY CARE PHYSICIAN: Mariluz High MD PULMONARY PROVIDER: Dr. Minh Garner Results will be communicated via letter or electronic record if applicable. Visit Delivery: In Person Patient Visit Type: established Current or Ex-smoker? [Current Exam Type: annual LDCT Number of Pack Years: 86 Current smoker (=0) The patient's smoking history is similar to prior year shared decision visit. The reason for the discrepancy is NA Chief Complaint: Established patient in lung cancer screening program here for annual follow-up. Impression / Recommendations Francis Diez presents for annual lung cancer screening annual exam and nodule evaluation. Plan: Indeterminate pulmonary nodules: No previously identified nodules. However, new opacities in RADHA and RLL. Pt has chronic hemidiaphram elevation on the left. Nature of the lung nodule(s) and the options for further evaluation discussed in detail with patient. Francis Diez expressed understanding and is in agreement with plan. 2. Encounter for screening for malignant neoplasm of respiratory organs I have determined that the patient is eligible for continued low dose CT screening based on age, absence of signs or symptoms of lung cancer, smoking history and total pack years. The patient was counseled on the importance of adherence to annual LDCT lung cancer screening, impact of comorbidities and ability or willingness to undergo diagnosis and treatment. The patient understands and feels comfortable with it: Yes. 3. Nicotine Dependence The patient was counseled on the importance of smoking cessation if current smoker and, if appropriate, offered additional tobacco cessation counseling services - Smoking Cessation Counseling. SMOKING CESSATION COUNSELING-deferred I spent a total of 30 minutes on the date of the service which included preparing to see the patient, bzug-[id number] patient care, completing clinical documentation, performing a medically appropriate examination, counseling and educating the patient/family/caregiver, ordering medications, tests, or p rocedures, communicating with other HCPs (not separately reported), independently interpreting results (not separately reported), communicating results to the patient/family/caregiver, and care coordination (not separately reported). Aaron Moura APRN.[facility] October 23, 2024 1:32 PM History of Present Illness: Francis Diez is a 59 year old female who is presenting today for annual lung cancer screening LDCTand nodule surveillance/management. Patient has no lung nodules found on previous lung cancer screening LDCT. Last LDCT was performed on 12/29/2022 and was LUNG RADS Category 1. Previous potentially significant incidental findings on imaging: None. Patient is a current smoker with a 86 pack year history. Patient is currently still smoking 0.25 packi cigarettes daily. Patient will continue to be eligible for lung cancer screening until age 75. Started x 3 weeks ago with feeling run down, runny nose, and cough. Cough persistent still. Took some prednisone last week-20 mg 2 a day for 4 days, then 1 a day for 3 days. Using inhalers and not helping much. Feeling more short of breath, having coughing jags, green sputum, wheezing. No nausea orvomiting. Having some sweats. Pulse ox 84% with oxygen on at 2L. Stays down for couple hours. Stopped checking it. Modified [employer] [place] Dyspnea Scale (MMRC) I am too breathless to leave the house or I am breathless when dressing 4 Last 12 Encounter Wt Readings: Date: Wt: 10/23/2024 94.1 kg (207 lb 7.3 oz) 08/10/2024 93.5 kg (206 lb 3.2 oz) 08/08/2024 93.9 kg (207 lb) 07/11/2024 93.9 kg (207 lb) 01/05/2024 85.7 kg (189 lb) 01/05/2024 85.7 kg (189 lb) 11/09/2023 84.8 kg (187 lb) 11/09/2023 84.8 kg (187 lb) 10/19/2023 79.8 kg (176 lb) 09/24/2023 80.3 kg (177 lb) 09/20/2023 79.9 kg (176 lb 3.2 oz) 09/17/2023 79.4 kg (175 lb) Social History Tobacco Use: Types: Cigarettes Past Medical History: PAST MEDICAL HISTORY Diagnosis Date Allergies ASTHMA UNSPECIFIED 07/08/2005 Bronchiectasis (HCC) CHRONIC AIRWAY OBSTRUCTION NEC 07/08/2005 Depression Diaphragm dysfunction HYPERTENSION NOS 07/08/2005 Family Hx: FAMILY HISTORY Problem Relation Age of Onset other (Lung cancer [Other]) Mother Asthma Mother Diabetes Father Dialysis Father other (Myocardial infarction) Sister Colon Cancer Sister Colon Cancer Brother 2 brothers. other (Myocardial infarction) Brother Surgical Hx: PAST SURGICAL HISTORY Procedure Laterality Date LAPS SURG CHOLECYSTECTOMY W/CHOLANGIOGRAPHY 04-21-13 [facility] Dr Guillen RMVL LUNG OTHER THAN PNEUMONECTOMY 1 LOBE LOBECT 1992 Left - bronchiectasis TOTAL ABDOMINAL HYSTERECT W/WO RMVL TUBE OVARY Hysterectomy, CARMENCITA Allergies: ALLERGIES Allergen Reactions Benadryl [Diphenhyd* Shortness of Breath She is not sure of the reaction. Was given it in the ER years ago. Penicillins Hives Review Of Systems: See HPI for ROS All of the remainder systems were reviewed and negative. PHYSICAL EXAMINATION: BP 150/89 Pulse 77 Temp (Src) 97.8 (Temporal) Wt 207 lb 7.3 oz (94.1kg) SpO2 94% General appearance: well appearing, in no acute distress, and alert Skin: skin color, texture, turgor normal, no rashes or lesions Neck: Supple, no adenopathy; thyroid symmetric, normal size Respiratory: Positive findings: coarse rhonchi Cardiovascular: Negative. RRR without murmur, gallop, or rubs. No ectopy Musculoskeletal: Extremities normal. No deformities, edema, or skin discoloration. Data Review I have visually reviewed imaging and testing below CT imaging done today was reviewed and analyzed independently and compared to prior CT chest imaging by practitioner and awaiting radiology review. New RADHA patchy opacities New RLL opacity Imaging * * *Final Report* * * DATE OF EXAM: Dec 29 2022 8:43AM [facility] [id number] - CT LUNG SCREEN [facility] / PROCEDURE REASON: multiple diagnoses * * * * Physician Interpretation * * * * EXAMINATION: CHEST CT WITHOUT CONTRAST (LOW-DOSE CT LUNG CANCER SCREENING PROTOCOL) CLINICAL HISTORY: Lung cancer LDCT screening ? absence of signs or symptoms of lung cancer. Nicotine dependence (cigarettes). Baseline (initial) Technique: Spiral CT acquisition of the chest from the thoracic inlet to the upper abdomen without contrast. MQ: [id number] Patient characteristics: * Idxt-sl-Cwyfc: 1965; Age at exam: 57 years * Gender: Female * Lung Disease: Asymptomatic (no signs or symptoms of lung disease) * Number of Pack Years: 84 * Current smoker (=0) or Number of Years since Quit: 0 * Ordering provider and NPI: AARON MOURA [id number] * Interpreting radiologist and NPI: Miriam [id number] Exam acquisition parameters: * Exam Date: 12/29/2022 8:43 AM * Site: [facility] * * CT System Engineering Technician: [employer] * CT System Model: Sensation * Tube Current-Time (mA-sec): 43 * Peak Voltage (kV): 120V * Scan Time (sec): 11.46 * Scan Volume (z-length, cm): -30.60 * Pitch: 0.75 * Slice Thickness (mm): 1.5 * CT Dose-Length Product: 113 mGy*cm * CT Dose Index: 3.32mGy * CT Dose Reduction Method: Automated exposure control(AEC) and iterative recon COMPARISON: Prior chest CT dated 12/05/2021 RESULT: Are nodules present? No Other findings: Elevated left hemidiaphragm unchanged. Degenerative changes of the thoracic spine. Mild bronchial thickening and trivial upper lobe emphysema. Mosaic attenuation likely from chronic small airway inflammation. Scattered linear opacities likely atelectasis. Wedge resection line at the anterior left base. No dominant pulmonary nodules. Last CT Chest - Impression Only CT CHEST WO IVCON Exam End: 12/05/2021 8:27 AM (Final result) Impression: IMPRESSION: 1. No acute chest pathology 2. Unchanged elevation of the left hemidiaphragm 3. Again noted is scarring or atelectasis in the medial right middle lobe and right lower lobe ... Last XR Chest - Impression Only XR CHEST 2V FRONTAL/LAT Exam End: 01/05/2024 12:12 PM (Final result) Impression: IMPRESSION: Stable chest. No developing abnormality ... Pulmonary Function Testing: SPIROMETRY WITH DILATOR IF OBSTRUCTED ([id number]) - ordered on 01/05/24 No textual results for order. documented in [facility] encounterL[facility] History of Present illness Narrative* Rosi Melgoza, RT(R) - 10/23/2024 1:00 PM EST Radiology Service Progress Note PATIENT NAME: Francis Diez DATE OF SERVICE: October 23, 2024 TIME: 1:33 PM PATIENT IDENTITY VERIFICATION COMPLETED USING TWO (2) IDENTIFIERS: Name and Date of confirmedby patient verbally. FALL SCREENING: Has the patient had 2 falls in the last year or 1 fall with injury or currently using an Ambulatory Assistive Device (Walker, Cane, Wheelchair, Crutches, etc.)? No PATIENT GENDER DATA: Assigned female at . status: : No status:NO. PATIENT RELEVANT IMPLANT DATA REVIEWED: Yes PATIENT PRESENTS WITH AN IMPLANTABLE OR ATTACHED SAFETY COORDINATOR: No RADIOLOGY DEPARTMENT: CT; Exam(s) Completed: Lung Screening PERIPHERAL IV DATA: Not applicable SIGNED BY: RT Santhosh(Tyesha) October 23, 2024 1:33 PM documented in this encounterLake [facility]-03-[facility]25 NoteHNO ID: [id number] Author: ROSI MELGOZA RT (R) Service: ? Author Type: Supervisor Fertilizer Type: Progress Notes Filed: 10/23/2024 13:33 Note Text: Radiology Service Progress Note PATIENT NAME: Francis Diez DATE OF SERVICE: October 23, 2024 TIME: 1:33 PM PATIENT IDENTITY VERIFICATION COMPLETED USING TWO (2) IDENTIFIERS: Name and Date of confirmed by patient verbally. FALL SCREENING: Has the patient had 2 falls in the last year or 1 fall with injury or currently using an Ambulatory Assistive Device (Walker, Cane, Wheelchair, Crutches, etc.)? No PATIENT GENDER DATA: Assigned female at . status: : No status: NO. PATIENT RELEVANT IMPLANT DATA REVIEWED: Yes PATIENT PRESENTS WITH AN IMPLANTABLE OR ATTACHED SAFETY COORDINATOR: No RADIOLOGY DEPARTMENT: CT; Exam(s) Completed: Lung Screening PERIPHERAL IV DATA: Not applicable SIGNED BY: RT Santhosh(Tyesha) October 23, 2024 1:33 [facility]02-24-2025 Telephone encounter Note* Telephone Encounter - Milvia De La Cruz OCCA - 10/16/2024 2:16 PM EST TC to patient who verbalized understanding of below. Patient has appointment scheduled for lab workon 10/26. YANCY Mayen [facility]02-24-2025 Miscellaneous Notes* Telephone Encounter - Milvai De La Cruz OCCA - 10/16/2024 2:16 PM EST TC to patient who verbalized understanding of below. Patient has appointment scheduled for lab workon 10/26. YANCY Mayen * Telephone Encounter - Cheyanne Cortez APRN.CNP - 10/11/2024 7:29 AM EST Overdue for liver enzymes as these should be done yearly on this medicine. Order placed. Thank you Cheyanne Cortez APRN.CNP * Telephone Encounter - Fallon Hernandez RN - 10/10/2024 12:39 PM EST Patient calls to also request refill of Myrbetriq. Pended per request. Fallon Hernandez, RN * Telephone Encounter - Sydni Dunaway LPN - 10/10/2024 9:10 AM EST Prescription Refill Information The patient has been identified by name and date of : Yes Caregiver verified no other encounters exist for this prescription request: Yes Caregiver confirmed with patient/requestor that no other refills are due, in the near future, with this provider at this time: Yes The last office visit in the department: 08/10/24 Does the patient have a future office visit with this provider/department: Yes 11/10/24 Requested Prescriptions Pending Prescriptions Disp Refills cholecalciferol (VITAMIN D3) 1,000 unit tab tablet 90 tablet 3 Sig: Take 1 tablet by mouth once daily. Sydni Dunaway LPN October 10, 2024 9:10 AM documented in this encounterLake [facility] Telephone encounter Note * Telephone Encounter - Cheyanne Cortez APRN.CNP - 10/11/2024 7:29 AM EST Overdue for liver enzymes as these should be done yearly on this medicine. Order placed. Thank you Cheyanne Cortez APRN.PLANOGRAPH OPERATOR [facility]02-18-2025 Telephone encounter Note* Telephone Encounter - Fallon Hernandez RN - 10/10/2024 12:39 PM EST Patient calls to also request refill of Myrbetriq. Pended per request. Fallon Hernandez RN [facility]02-18-2025 Telephone encounter Note* Telephone Encounter - Sydni Dunaway LPN - 10/10/2024 9:10 AM EST Prescription Refill Information The patient has been identified by name and date of : Yes Caregiver verified no other encounters exist for this prescription request: Yes Caregiver confirmed with patient/requestor that no other refills are due, in the near future, with this provider at this time: Yes The last office visit in the department: 08/10/24 Does the patient have a future office visit with this provider/department: Yes 11/10/24 Requested Prescriptions Pending Prescriptions Disp Refills cholecalciferol (VITAMIN D3) 1,000 unit tab tablet 90 tablet 3 Sig: Take 1 tablet by mouth once daily. Sydni Dunaway LPN October 10, 2024 9:10 AM [facility]02-13-2025 Telephone encounter Note* Telephone Encounter - Gigi Ferrera RN - 10/05/2024 2:31 PM EST Pt returned call and given provider's message below with verbalized understanding. [facility]02-13-2025 Miscellaneous Notes* Telephone Encounter - Gigi Ferrera RN - 10/05/2024 2:31 PM EST Pt returned call and given provider's message below with verbalized understanding. * Telephone Encounter - Jimi Mercado LPN - 10/05/2024 2:22 PM EST Called and left message for patient to call office back for update Jimi JAMES Mercado October 05, 2024 2:23 PM * Telephone Encounter - Mariluz High MD - 10/05/2024 1:48 PM EST Increased medication as requested Mariluz Rosas MD * Telephone Encounter - Jimi Mercado LPN - 10/04/2024 11:29 AM EST Called and spoke to patient, states has lost about 2 pounds, and is okay with increasing medication. Jimi Mercado LPN October 04, 2024 11:30 AM * Telephone Encounter - Mariluz High MD - 10/04/2024 10:39 AM EST Did you lose any weight ? We can up on it now if she feels she wants to Mariluz Rosas MD * Telephone Encounter - Cheyanne Cortez APRN.CNP - 10/04/2024 10:29 AM EST When did she start this medication. Thank you Cheyanne Cortez APRN.DICK * Telephone Encounter - Rayna Mcdermott RN - 10/02/2024 12:07 PM EST Pt called in and reports she is on the 0.25 mg dose of the Semaglutide and she was wanting to know when she would be able to go up to the next strength dose. Pt states she gets it at [facility]. Pt denies having any issues of SE with the dose she is on. Please call and advisePt. documented in this encounterLake [facility]02-13-20[facility] Telephone encounter Note * Telephone Encounter - Jimi Mercado LPN - 10/05/2024 2:22 PM EST Called and left message for patient to call office back for update Jimi Mercado LPN October 05, 2024 2:23 PM [facility]-13-2025 Telephone encounter Note* Telephone Encounter - Mariluz High MD - 10/05/2024 1:48 PM EST Increased medication as requested Mariluz Rosas MD [facility]02-12-2025 Telephone encounter Note* Telephone Encounter - Jimi Mercado LPN - 10/04/2024 11:29 AM EST Called and spoke to patient, states has lost about 2 pounds, and is okay with increasing medication. Jimi Mercado LPN October 04, 2024 11:30 AM [facility]02-12-2025 Telephone encounter Note* Telephone Encounter - Mariluz High MD - 10/04/2024 10:39 AM EST Did you lose any weight ? We can up on it now if she feels she wants to RegardsMariluz MD [facility]02-12-2025 Telephone encounter Note* Telephone Encounter - Cheyanne Cortez APRN.CNP - 10/04/2024 10:29 AM EST When did she start this medication. Thank you Cheyanne Cortez APRN.PLANOGRAPH OPERATOR [facility]02-10-2025 Telephone encounter Note* Telephone Encounter - Rayna Mcdermott RN - 10/02/2024 12:07 PM EST Pt called in and reports she is on the 0.25 mg dose of the Semaglutide and she was wanting to know when she would be able to go up to the next strength dose. Pt states she gets it at the [facility]. Pt denies having any issues of SE with the dose she is on. Please call and advisePt. [facility]01-29-2025 Telephone encounter Note* Telephone Encounter - Vero Calvo LPN - 09/20/2024 5:05 PM EST Patient has been identified by name and date of : Yes Patient phones for refill(s): Requested Prescriptions Pending Prescriptions Disp Refills potassium chloride SR (MICRO-K) 10 mEq CR capsule 270 capsule 3 Sig: Take 1 capsule by mouth three times a day. Date of last office visit in primary care: 08/10/2024 Date of next office visit in primary care: 11/10/2024 Please advise. Thank you. Vero Calvo LPN. [facility]01-29-2025 Miscellaneous Notes* Telephone Encounter - Vero Calvo LPN - 09/20/2024 5:05 PM EST Patient has been identified by name and date of : Yes Patient phones for refill(s): Requested Prescriptions Pending Prescriptions Disp Refills potassium chloride SR (MICRO-K) 10 mEq CR capsule 270 capsule 3 Sig: Take 1 capsule by mouth three times a day. Date of last office visit in primary care: 08/10/2024 Date of next office visit in primary care: 11/10/2024 Please advise. Thank you. Vero Calvo LPN. documented in this encounterLake [facility]01-03-20[facility] Telephone encounter Note * Telephone Encounter - Jimi Mercado LPN - 08/25/2024 10:58 AM EST Patient MyChart message requesting the following refill Refill(s) Requested: Requested Prescriptions Pending Prescriptions Disp Refills buPROPion XL (WELLBUTRIN XL) 300 mg 24 hr tablet 90 tablet 3 Sig: Take 1 tablet by mouth once daily. ALLERGIES Allergen Reactions Benadryl [Diphenhyd* Shortness of Breath She is not sure of the reaction. Was given it in the ER years ago. Anjel Wilhelm (home) [phone] (cell) Last Office Visit Date: 08/10/2024 Last Distance Health Visit: Visit date not found Future Appointment: 11/10/2024 The patients preferred pharmacy has been captured for this encounter? yes Request is for script(s) to be escript to pharmacy. Jimi Mercado LPN [facility]01-03-2025 Miscellaneous Notes* Telephone Encounter - Jimi Mercado LPN - 08/25/2024 10:58 AM EST Patient [employer] message requesting the following refill Refill(s) Requested: Requested Prescriptions Pending Prescriptions Disp Refills buPROPion XL (WELLBUTRIN XL) 300 mg 24 hr tablet 90 tablet 3 Sig: Take 1 tablet by mouth once daily. ALLERGIES Allergen Reactions Benadryl [Diphenhyd* Shortness of Breath She is not sure of the reaction. Was given it in the ER years ago. Anjel Wilhelm (home) [phone] (cell) Last Office Visit Date: 08/10/2024 Last [facility] Visit: Visit date not found Future Appointment: 11/10/2024 The patients preferred pharmacy has been captured for this encounter? yes Request is for script(s) to be escript to pharmacy. Jimi Mercado LPN documented in this encounterLake [facility]12-[facility]-2024 Telephone encounter Note * Telephone Encounter - Louisa Sumner RN - 08/17/2024 4:01 PM EST Patient calls and is asking if medication can be sent to [employer] so that she can use coupon for medication? [facility]12-26-2024 Miscellaneous Notes* Telephone Encounter - Louisa Sumner RN - 08/17/2024 4:01 PM EST Patient calls and is asking if medication can be sent to [facility] so that she can use coupon for medication? [facility] NoteHNO ID: [id number] Author: MARILUZ HIGH MD Service: ? Author Type: Physician Type: Progress Notes Filed: 08/10/2024 17:14 Note Text: Reason for Visit Patient presents with: Follow Up: Labs Francis Diez is a 59 year old female who presents here today for Above Complaints.. Health Maintenance DTaP,Tdap,Td Vaccine(1 - Tdap) Shingrix Vaccine(1 of 2) Pneumococcal Vaccine: 50+(2 of 2 - PCV) RSV Vaccine(1 - Risk 60-74 years 1-dose series) Colorectal Cancer Screening Mammogram Screening Influenza Vaccine(1) Covid-19 Vaccine( - season) HPI This is a 59-year-old with a past medical history of bronchiectasis, heavy tobacco user in the past, essential hypertension, mixed hyperlipidemia, class II obesity, major depressive disorder, insomnia She is concerned about the weight gain that she recently had. She was on GLP1's in the past and it worked for her but, since then she has not taken the medication, as it is not covered, she would like to get back on the medication. Still smoking around 4 cigs a day, she is motivated to cut down as she cannot breathe much. HPL: Reviewed test results with patient , takes medications regularly , does not report side effects. Conscious to avoid red meats, full fat dairy and its by products. Exercising 3 to 5 times a week. Was recently on started trospium,. It worked initially and now it is not working. She is on the duloxetine and would like to continue it. Reviewed labs with her, lipids, hba1c and bmp are normal or not concerning. No problem-specific Assessment AND Plan notes found for this encounter. PAST MEDICAL HISTORY Diagnosis Date Allergies ASTHMA UNSPECIFIED 07/08/2005 Bronchiectasis (HCC) CHRONIC AIRWAY OBSTRUCTION NEC 07/08/2005 Depression Diaphragm dysfunction HYPERTENSION NOS 07/08/2005 PAST SURGICAL HISTORY Procedure Laterality Date LAPS SURG CHOLECYSTECTOMY W/CHOLANGIOGRAPHY 04-21-[address] [facility] [address] Guillen RMVL LUNG OTHER THAN PNEUMONECTOMY 1 LOBE LOBECT 1992 Left - bronchiectasis TOTAL ABDOMINAL HYSTERECT W/WO RMVL TUBE OVARY Hysterectomy, CARMENCITA FAMILY HISTORY Problem Relation Age of Onset other (Lung cancer [Other]) Mother Asthma Mother Diabetes Father Dialysis Father other (Myocardial infarction) Sister Colon Cancer Sister Colon Cancer Brother 2 brothers. other (Myocardial infarction) Brother Social History Tobacco Use Smoking status: Every Day Current packs/day: 0.25 Average packs/day: 0.3 packs/day for 42.5 years (10.6 ttl pk-yrs) Types: Cigarettes Start date: 1982 Smokeless tobacco: Never Tobacco comments: Did not smoke during pregnancies. Former 2 ppd smoker. Less than 1/2ppd 08/08/2024 Vaping Use Vaping status: Never Used Substance Use Topics Alcohol use: No Drug use: No Past medical history, appointments, medications, allergies reviewed. Pertinent Lab/Diagnostic Studies are reviewed and discussed today Current Outpatient Medications: ocaleaqrdpr-hkhsmvdmn-mjbblwal (TRELEGY ELLIPTA) 200-62.5-25 mcg inhalation powder predniSONE (DELTASONE) 10 mg tablet DULoxetine (CYMBALTA) 60 mg capsule Phentermine HCl (ADIPEX-P) 37.5 mg tablet mirabegron (MYRBETRIQ) 25 mg Tb24 montelukast (SINGULAIR) 10 mg tablet benzonatate (TESSALON PERLE) 100 mg capsule albuterol HFA (VENTOLIN HFA) 90 mcg/actuation inhaler traZODone (DESYREL) 100 mg tablet albuterol (PROVENTIL) 2.5 mg /3 mL (0.083 %) nebulizer solution furosemide (LASIX) 40 mg tablet rosuvastatin (CRESTOR) 5 mg tablet cholecalciferol (VITAMIN D3) 1,000 unit tab tablet cyclobenzaprine (FLEXERIL) 10 mg tablet buPROPion XL (WELLBUTRIN XL) 300 mg 24 hr tablet ipratropium (ATROVENT) 0.02 % nebulizer solution potassium chloride SR (MICRO-K) 10 mEq CR capsule nitroglycerin sublingual (NITROQUICK) 0.4 mg SL tablet COMPOUNDED PRESCRIPTION COMPOUNDED PRESCRIPTION spironolactone (ALDACTONE) 25 mg tablet Review of Systems CONSTITUTIONAL: No fevers, chills night sweats, unintended weight loss CARDIOVASCULAR: No chest pain, dyspnea, palpitations, orthopnea, PND, ankle edema. PULM: No dyspnea, unexplained cough. GI: No dysphagia/odynophagia, problematic reflux, constipation, diarrhea, changes in stool habits, hematochezia, melena. : No new urinary complaints, including dysuria, gross hematuria or pyuria. NEURO: No new balance problems, peripheral weakness/paresthesias or numbness of concern. Physical Exam BP 132/80 (BP Site: Left Arm) Pulse 91 Ht 157.5 cm (5' 2) Wt 93.5 kg (206 lb 3.2 oz) SpO2 90% BMI 37.71 kg/m? General appearance: Well appearing, alert, in no acute distress, well nourished. Skin: Skin color, texture, turgor normal, no suspicious rashes or lesions Head: Normocephalic, no masses, lesions, tenderness or abnormalities Eyes: Anicteric sclera. Pupils are equally round and reactive to light. Extraocular movements are intact. Lungs: Lungs clear to auscultation. No wheezi (more content not included)... [facility] History of Present illness Narrative* Mariluz High MD - 08/10/2024 1:45 PM EST Reason for Visit Patient presents with: Follow Up: Labs Francis Diez is a 59 year old female who presents here today for Above Complaints.. Health Maintenance DTaP,Tdap,Td Vaccine(1 - Tdap) Shingrix Vaccine(1 of 2) Pneumococcal Vaccine: 50+(2 of 2 - PCV) RSV Vaccine(1 - Risk 60-74 years 1-dose series) Colorectal Cancer Screening Mammogram Screening Influenza Vaccine(1) Covid-19 Vaccine( - 2023- season) HPI This is a 59-year-old with a past medical history of bronchiectasis, heavy tobacco user in the past, essential hypertension, mixed hyperlipidemia, class II obesity, major depressive disorder, insomnia She is concerned about the weight gain that she recently had. She was on GLP1's in the past and it worked for her but, since then she has not taken the medication, as it is not covered, \she would like to get back on the medication. Still smoking around 4 cigs a day, she is motivated to cut down as she cannot breathe much. HPL: Reviewed test results with patient , takes medications regularly , does not report side effects. Conscious to avoid red meats, full fat dairy and its by products. Exercising 3 to 5 times a week. Was recently on started trospium,. It worked initially and now it is not working. She is on the duloxetine and would like to continue it. Reviewed labs with her, lipids, hba1c and bmp are normal or not concerning. No problem-specific Assessment & Plan notes found for this encounter. PAST MEDICAL HISTORY Diagnosis Date Allergies ASTHMA UNSPECIFIED 07/08/2005 Bronchiectasis (HCC) CHRONIC AIRWAY OBSTRUCTION NEC 07/08/2005 Depression Diaphragm dysfunction HYPERTENSION NOS 07/08/2005 PAST SURGICAL HISTORY Procedure Laterality Date LAPS SURG CHOLECYSTECTOMY W/CHOLANGIOGRAPHY 04-21-[address] [facility] [address] Guillen RMVL LUNG OTHER THAN PNEUMONECTOMY 1 LOBE LOBECT 1992 Left - bronchiectasis TOTAL ABDOMINAL HYSTERECT W/WO RMVL TUBE OVARY Hysterectomy, [place]MEN[place]A FAMILY HISTORY Problem Relation Age of Onset other (Lung cancer [Other]) Mother Asthma Mother Diabetes Father Dialysis Father other (Myocardial infarction) Sister Colon Cancer Sister Colon Cancer Brother 2 brothers. other (Myocardial infarction) Brother Social History Tobacco Use Smoking status: Every Day Current packs/day: 0.25 Average packs/day: 0.3 packs/day for 42.5 years (10.6 ttl pk-yrs) Types: Cigarettes Start date: 1982 Smokeless tobacco: Never Tobacco comments: Did not smoke during pregnancies. Former 2 ppd smoker. Less than 1/2ppd 08/08/2024 Vaping Use Vaping status: Never Used Substance Use Topics Alcohol use: No Drug use: No Past medical history, appointments, medications, allergies reviewed. Pertinent Lab/Diagnostic Studies are reviewed and discussed today Current Outpatient Medications: nhxdkfdqisx-gnjxvhkae-vxliiihy (TRELEGY ELLIPTA) 200-62.5-25 mcg inhalation powder predniSONE (DELTASONE) 10 mg tablet DULoxetine (CYMBALTA) 60 mg capsule Phentermine HCl (ADIPEX-P) 37.5 mg tablet mirabegron (MYRBETRIQ) 25 mg Tb24 montelukast (SINGULAIR) 10 mg tablet benzonatate (TESSALON PERLE) 100 mg capsule albuterol HFA (VENTOLIN HFA) 90 mcg/actuation inhaler traZODone (DESYREL) 100 mg tablet albuterol (PROVENTIL) 2.5 mg /3 mL (0.083 %) nebulizer solution furosemide (LASIX) 40 mg tablet rosuvastatin (CRESTOR) 5 mg tablet cholecalciferol (VITAMIN D3) 1,000 unit tab tablet cyclobenzaprine (FLEXERIL) 10 mg tablet buPROPion XL (WELLBUTRIN XL) 300 mg 24 hr tablet ipratropium (ATROVENT) 0.02 % nebulizer solution potassium chloride SR (MICRO-K) 10 mEq CR capsule nitroglycerin sublingual (NITROQUICK) 0.4 mg SL tablet COMPOUNDED PRESCRIPTION COMPOUNDED PRESCRIPTION spironolactone (ALDACTONE) 25 mg tablet Review of Systems CONSTITUTIONAL: No fevers, chills night sweats, unintended weight loss CARDIOVASCULAR: No chest pain, dyspnea, palpitations, orthopnea, PND, ankle edema. PULM: No dyspnea, unexplained cough. GI: No dysphagia/odynophagia, problematic reflux, constipation, diarrhea, changes in stool habits, hematochezia, melena. : No new urinary complaints, including dysuria, gross hematuria or pyuria. NEURO: No new balance problems, peripheral weakness/paresthesias or numbness of concern. Physical Exam BP 132/80 (BP Site: Left Arm) Pulse 91 Ht 157.5 cm (5' 2) Wt 93.5 kg (206 lb 3.2 oz) SpO2 90% BMI 37.71 kg/m General appearance: Well appearing, alert, in no acute distress, well nourished. Skin: Skin color, texture, turgor normal, no suspicious rashes or lesions Head: Normocephalic, no masses, lesions, tenderness or abnormalities Eyes: Anicteric sclera. Pupils are equally round and reactive to light. Extraocular movements are intact. Lungs: Lungs clear to auscultation. No wheezing, rhonchi, rales Heart: RRR without murmur, gallop, or rubs. Extremities: No deformities, edema, skin discoloration, clubbing or cyanosis. Good capillary refill. ASSESSMENT/PLAN: 1. Obesity (BMI 35.0-39.9 without comorbidity) - ICD9: 278.00, ICD10: E66.9 (primary diagnosis) Went over the side effect profile for the drug with the patient, mentioned every one of it , discussed appropriate concerns , alternatives and benefits of the drug, - SEMAGLUTIDE 0.25 MG OR 0.5 MG (2 MG/3 ML) SUBCUTANEOUS PEN INJECTOR 2. Encounter for immunization - ICD9: V03.89, ICD10: Z23 - INFLUENZA VACCINE, AGE 6MO-64YR, TRIVALENT (AFLURIA, FLULAVAL, FLUVIRIN, FLUZONE) 3. Essential hypertension - ICD9: 401.9, ICD10: I10 - Controlled - Recommend home blood pressure monitoring, to bring results to next visit - Encouraged sodium restriction, DASH or Mediterranean diet - Recommend regular aerobic exercise 4. Tobacco use - ICD9: 305.1, ICD10: Z72.0 - Cessation encouraged. - Physiologic and physical aspects of tobacco addiction as well as strategies for quitting were discussed. - Counseling was given focusing on the harmful effects of this addiction especially given the patient's medical condition(s) which will be worsened because of the chemicals in tobacco. Mariluz High MD documented [facility] History of Present illness Narrative* Penny Garner MD - 08/08/2024 11:45 AM EST Images from the original note were not included. . [facility] [place] Note Patient name: Francis Diez PCP: Mariluz High MD CC: Obstructive lung disease HPI: Francis Diez 59 year old female smoker with PMH significant for bronchiectasis s/p LLL lung resection in 1992, left diaphragm dysfunction, asthma with COPD, HTN, obesity. Current therapy with Trelegy Ellipta, Singulair and albuterol. Participating in lung cancer screening, last exam 12/2022. She is overdue for her chest CT. She states she has been more short of breath lately, some wheezing, no significant cough or sputum production. She has not had any upper respiratory infectious symptoms. No recent hospitalizations or ED visits. She has been using her albuterol more often. DME: [employer] [facility] PAST MEDICAL HISTORY Diagnosis Date Allergies ASTHMA UNSPECIFIED 07/08/2005 Bronchiectasis (HCC) CHRONIC AIRWAY OBSTRUCTION NEC 07/08/2005 Depression Diaphragm dysfunction HYPERTENSION NOS 07/08/2005 ALLERGIES Allergen Reactions Benadryl [Diphenhyd* Shortness of Breath She is not sure of the reaction. Was given it in the ER years ago. Penicillins Hives DULoxetine (CYMBALTA) 60 mg capsule Take 1 capsule by mouth once daily. Phentermine HCl (ADIPEX-P) 37.5 mg tablet Take 1 tablet by mouth once daily for 30 days. mirabegron (MYRBETRIQ) 25 mg Tb24 Take 1 tablet by mouth once daily. montelukast (SINGULAIR) 10 mg tablet take 1 tablet by mouth once daily. benzonatate (TESSALON PERLE) 100 mg capsule take 1 capsule by mouth three times daily as needed forcough albuterol HFA (VENTOLIN HFA) 90 mcg/actuation inhaler Inhale 2 Puffs as instructed every 4 hours asneeded for wheezing/shortness of breath. traZODone (DESYREL) 100 mg tablet TAKE 3 TABLETS EVERY DAY (Patient taking differently: Take 300 mgby mouth daily at bedtime.) albuterol (PROVENTIL) 2.5 mg /3 mL (0.083 %) nebulizer solution Use 3 mL via nebulizer every 4 hours as needed for wheezing/shortness of breath. J44.9 furosemide (LASIX) 40 mg tablet Take 1 tablet by mouth once daily. rosuvastatin (CRESTOR) 5 mg tablet Take 1 tablet by mouth daily at bedtime. cholecalciferol (VITAMIN D3) 1,000 unit tab tablet Take 1 tablet by mouth once daily. cyclobenzaprine (FLEXERIL) 10 mg tablet Take 1 tablet by mouth at bedtime as needed for muscle spasm or pain. spironolactone (ALDACTONE) 25 mg tablet Take 1 tablet by mouth once daily. buPROPion XL (WELLBUTRIN XL) 300 mg 24 hr tablet Take 1 tablet by mouth once daily. ipratropium (ATROVENT) 0.02 % nebulizer solution Use 2.5 mL via nebulizer four times a day as needed. OVER 5-15 MINUTES FOR WHEEZING OR SHORTNESS OF BREATH J44.9 potassium chloride SR (MICRO-K) 10 mEq CR capsule TAKE 1 CAPSULE BY MOUTH 3 TIMES DAILY nitroglycerin sublingual (NITROQUICK) 0.4 mg SL tablet Dissolve 1 tablet under the tongue as needed. FOR CHEST PAIN. IF NO RELIEF CALL 911 COMPOUNDED PRESCRIPTION Oxygen 2L at night and as needed COMPOUNDED PRESCRIPTION Nebulizer machine DX: 496/143.90 einovbouawb-rcrdwvokk-babajgsq (TRELEGY ELLIPTA) 200-62.5-25 mcg inhalation powder Inhale 1 Puff asinstructed once daily. predniSONE (DELTASONE) 10 mg tablet Take 4 daily for three days, then 3 daily for three days, then 2 daily for three days, then one daily for three days. Social History Tobacco Use Smoking status: Every Day Current packs/day: 0.25 Average packs/day: 0.3 packs/day for 42.5 years (10.6 ttl pk-yrs) Types: Cigarettes Start date: 1982 Smokeless tobacco: Never Tobacco comments: Did not smoke during pregnancies. Former 2 ppd smoker. Less than 1/2ppd 08/08/2024 Vaping Use Vaping status: Never Used Substance Use Topics Alcohol use: No Drug use: No FAMILY HISTORY Problem Relation Age of Onset other (Lung cancer [Other]) Mother Asthma Mother Diabetes Father Dialysis Father other (Myocardial infarction) Sister Colon Cancer Sister Colon Cancer Brother 2 brothers. other (Myocardial infarction) Brother PAST SURGICAL HISTORY Procedure Laterality Date LAPS SURG CHOLECYSTECTOMY W/CHOLANGIOGRAPHY 04-21-13 [facility] [address] Guillen RMVL LUNG OTHER THAN PNEUMONECTOMY 1 LOBE LOBECT 1992 Left - bronchiectasis TOTAL ABDOMINAL HYSTERECT W/WO RMVL TUBE OVARY Hysterectomy, CARMENCITA PMH, Social history, family history and surgical history reviewed and updated. REVIEW OF SYSTEMS: CONSTITUTIONAL: No fevers, chills, nightsweats, unintended weight loss HEENT: Denies frequent or severe heaches, nasal congestion/sinus symptoms, problematic allergy problems. EYES: No diplopia or blurry vision. CARDIOVASCULAR: No chest pain, dyspnea, palpitations, orthopnea, PND, ankle edema. PULM: No dyspnea, unexplained cough. GI: No dysphagia/odynophagia, problematic reflux, constipation, diarrhea, changes in stool habits, hematochezia, melena. : No new urinary complaints, including dysuria, gross hematuria or pyuria. NEURO: No new balance problems, peripheral weakness/paresthesias or numbness of concern. MUSC-SKEL: No new joint pain, swelling, or erythema. PSY: No concerns regarding depression, anxiety or panic. INTEGUMENTARY: No new skin changes (rash, new or changing mole, new growth) PHYSICAL EXAMINATION: BP 142/86 Pulse 79 Resp 22 Ht 5' 2 (1.58m) Wt 207 lb (93.9kg) SpO2 92[RA]% BMI 37.85 kg/(m^2). General Appearance: Obese, NAD. Head: Normocephalic, no masses, lesions, tenderness or abnormalities. Eyes: Sclera, conjunctiva normal. Oropharynx: No oral lesions, or thrush. Neck: No masses or adenopathy. Lungs: Not labored, diffuse rhonchi. Heart: RRR, no murmur. Extremities: No edema, no clubbing. Assessment/Plan: Asthma COPD overlap -Obstructive lung disease not controlled -Increase Trelegy Ellipta to 200 mcg -Prednisone taper -Smoking cessation strongly encouraged Cigarette smoker -Smoking cessation strongly encouraged -Needs updated lung cancer screening CT Class 2 obesity -BMI 37 -Weight loss advised Penny Garner MD [facility] [place] documented in this encounterL[facility] NoteHNO ID: [id number] Author: PENNY GARNER MD Service: ? Author Type: Physician Type: Progress Notes Filed: 08/08/2024 21:10 Note Text: . [facility] [place] Note Patient name: Francis Diez PCP: Mariluz High MD CC: Obstructive lung disease HPI: Francis Diez 59 year old female smoker with PMH significant for bronchiectasis s/p LLL lung resection in 1992, left diaphragm dysfunction, asthma with COPD, HTN, obesity. Current therapy with Trelegy Ellipta, Singulair and albuterol. Participating in lung cancer screening, last exam 12/2022. She is overdue for her chest CT. She states she has been more short of breath lately, some wheezing, no significant cough or sputum production. She has not had any upper respiratory infectious symptoms. No recent hospitalizations or ED visits. She has been using her albuterol more often. DME: [employer] [facility] PAST MEDICAL HISTORY Diagnosis Date Allergies ASTHMA UNSPECIFIED 07/08/2005 Bronchiectasis (HCC) CHRONIC AIRWAY OBSTRUCTION NEC 07/08/2005 Depression Diaphragm dysfunction HYPERTENSION NOS 07/08/2005 ALLERGIES Allergen Reactions Benadryl [Diphenhyd* Shortness of Breath She is not sure of the reaction. Was given it in the ER years ago. Penicillins Hives DULoxetine (CYMBALTA) 60 mg capsule Take 1 capsule by mouth once daily. Phentermine HCl (ADIPEX-P) 37.5 mg tablet Take 1 tablet by mouth once daily for 30 days. mirabegron (MYRBETRIQ) 25 mg Tb24 Take 1 tablet by mouth once daily. montelukast (SINGULAIR) 10 mg tablet take 1 tablet by mouth once daily. benzonatate (TESSALON PERLE) 100 mg capsule take 1 capsule by mouth three times daily as needed for cough albuterol HFA (VENTOLIN HFA) 90 mcg/actuation inhaler Inhale 2 Puffs as instructed every 4 hours as needed for wheezing/shortness of breath. traZODone (DESYREL) 100 mg tablet TAKE 3 TABLETS EVERY DAY (Patient taking differently: Take 300 mg by mouth daily at bedtime.) albuterol (PROVENTIL) 2.5 mg /3 mL (0.083 %) nebulizer solution Use 3 mL via nebulizer every 4 hours as needed for wheezing/shortness of breath. J44.9 furosemide (LASIX) 40 mg tablet Take 1 tablet by mouth once daily. rosuvastatin (CRESTOR) 5 mg tablet Take 1 tablet by mouth daily at bedtime. cholecalciferol (VITAMIN D3) 1,000 unit tab tablet Take 1 tablet by mouth once daily. cyclobenzaprine (FLEXERIL) 10 mg tablet Take 1 tablet by mouth at bedtime as needed for muscle spasm or pain. spironolactone (ALDACTONE) 25 mg tablet Take 1 tablet by mouth once daily. buPROPion XL (WELLBUTRIN XL) 300 mg 24 hr tablet Take 1 tablet by mouth once daily. ipratropium (ATROVENT) 0.02 % nebulizer solution Use 2.5 mL via nebulizer four times a day as needed. OVER 5-15 MINUTES FOR WHEEZING OR SHORTNESS OF BREATH J44.9 potassium chloride SR (MICRO-K) 10 mEq CR capsule TAKE 1 CAPSULE BY MOUTH 3 TIMES DAILY nitroglycerin sublingual (NITROQUICK) 0.4 mg SL tablet Dissolve 1 tablet under the tongue as needed. FOR CHEST PAIN. IF NO RELIEF CALL 911 COMPOUNDED PRESCRIPTION Oxygen 2L at night and as needed COMPOUNDED PRESCRIPTION Nebulizer machine DX: 496/143.90 divnytdkmzj-sbszgrlrp-kepxcers (TRELEGY ELLIPTA) 200-62.5-25 mcg inhalation powder Inhale 1 Puff as instructed once daily. predniSONE (DELTASONE) 10 mg tablet Take 4 daily for three days, then 3 daily for three days, then 2 daily for three days, then one daily for three days. Social History Tobacco Use Smoking status: Every Day Current packs/day: 0.25 Average packs/day: 0.3 packs/day for 42.5 years (10.6 ttl pk-yrs) Types: Cigarettes Start date: 1982 Smokeless tobacco: Never Tobacco comments: Did not smoke during pregnancies. Former 2 ppd smoker. Less than 1/2ppd 08/08/2024 Vaping Use Vaping status: Never Used Substance Use Topics Alcohol use: No Drug use: No FAMILY HISTORY Problem Relation Age of Onset other (Lung cancer [Other]) Mother Asthma Mother Diabetes Father Dialysis Father other (Myocardial infarction) Sister Colon Cancer Sister Colon Cancer Brother 2 brothers. other (Myocardial infarction) Brother PAST SURGICAL HISTORY Procedure Laterality Date LAPS SURG CHOLECYSTECTOMY W/CHOLANGIOGRAPHY 04-21-[address] [facility] [address] Guillen RMVL LUNG OTHER THAN PNEUMONECTOMY 1 LOBE LOBECT 1992 Left - bronchiectasis TOTAL ABDOMINAL HYSTERECT W/WO RMVL TUBE OVARY Hysterectomy, CARMENCITA PMH, Social history, family history and surgical history reviewed and updated. REVIEW OF SYSTEMS: CONSTITUTIONAL: No fevers, chills, nightsweats, unintended weight loss HEENT: Denies frequent or severe heaches, nasal congestion/sinus symptoms, problematic allergy problems. EYES: No diplopia or blurry vision. CARDIOVASCULAR: No chest pain, dyspnea, palpitations, orthopnea, PND, ankle edema. PULM: No dyspnea, unexplained cough. GI: No dysphagia/odynophagia, problematic reflux, constipation, diarrhea, changes in stool habits, vickie (more content not included)...[facility]12-13-[facility] Telephone encounter Note* Telephone Encounter - Louisa Sumner RN - 08/04/2024 10:09 AM EST Patient states that she is out of medication. Medication was increased to 60 mg on 07/11/2024. The patient has been identified by name and date of : Yes Caregiver verified no other encounters exist for this prescription request: Yes Caregiver confirmed with patient/requestor that no other refills are due, in the near future, with this provider at this time: Yes The last office visit in the department: 10/19/2023 Does the patient have a future office visit with this provider/department: Yes 08/10/2024 Requested Prescriptions Pending Prescriptions Disp Refills DULoxetine (CYMBALTA) 60 mg capsule 90 capsule 1 Sig: Take 1 capsule by mouth once daily. Louisa Sumner RN August 04, 2024 10:10 AM [facility]12-13-[facility] Miscellaneous Notes* Telephone Encounter - Louisa Sumner RN - 08/04/2024 10:09 AM EST Patient states that she is out of medication. Medication was increased to 60 mg on 07/11/2024. The patient has been identified by name and date of : Yes Caregiver verified no other encounters exist for this prescription request: Yes Caregiver confirmed with patient/requestor that no other refills are due, in the near future, with this provider at this time: Yes The last office visit in the department: 10/19/2023 Does the patient have a future office visit with this provider/department: Yes 08/10/2024 Requested Prescriptions Pending Prescriptions Disp Refills DULoxetine (CYMBALTA) 60 mg capsule 90 capsule 1 Sig: Take 1 capsule by mouth once daily. Louisa Sumner RN August 04, 2024 10:10 AM documented in this encounterLake [facility] NotePatient Outreach (INTMMN) FRANCIS DIEZ ([id number]) 1965 F Date Time Provider Department 07/25/24 MARILUZ HIGH INTROBINA During your visit today, we recorded the following information about you: Allergies As of Date: 07/25/2024 Noted Allergy Reaction BENADRYL (DIPHENHYDRAMINE HCL) 11/13/2014 12 - Shortness of Breath Comments: She is not sure of the reaction. Was given it in the ER years ago. PENICILLINS 09/01/2010 4 - Hives Date Reviewed: 07/11/2024 Reviewed by: Alla Mariee LPN - Fully Assessed Visit Diagnoses:Essential hypertension [I10] Impaired fasting glucose [R73.01] Mixed hyperlipidemia [E78.2] Order(s):BASIC METABOLIC PANEL [SQBMP] Order #: [id number] FUTURE HEMOGLOBIN A1C [SOPHY0Y] Order #: [id number] FUTURE LIPID PANEL BASIC [SQLIPB] Order #: [id number] FUTURE Prescriptions as of 07/28/2024 - Phentermine HCl (ADIPEX-P) 37.5 mg tablet Take 1 tablet by mouth once daily for 30 days. - mirabegron (MYRBETRIQ) 25 mg Tb24 Take 1 tablet by mouth once daily. - tirzepatide (MOUNJARO) 2.5 mg/0.5 mL pen injector Inject 2.5 mg subcutaneously one time a week. - DULoxetine (CYMBALTA) 30 mg capsule Take 2 capsules by mouth once daily. - montelukast (SINGULAIR) 10 mg tablet take 1 tablet by mouth once daily. - benzonatate (TESSALON PERLE) 100 mg capsule take 1 capsule by mouth three times daily as needed for cough - albuterol HFA (VENTOLIN HFA) 90 mcg/actuation inhaler Inhale 2 Puffs as instructed every 4 hours as needed for wheezing/shortness of breath. - traZODone (DESYREL) 100 mg tablet TAKE 3 TABLETS EVERY DAY - albuterol (PROVENTIL) 2.5 mg /3 mL (0.083 %) nebulizer solution Use 3 mL via nebulizer every 4 hours as needed for wheezing/shortness of breath. J44.9 - furosemide (LASIX) 40 mg tablet Take 1 tablet by mouth once daily. - rosuvastatin (CRESTOR) 5 mg tablet Take 1 tablet by mouth daily at bedtime. - cholecalciferol (VITAMIN D3) 1,000 unit tab tablet Take 1 tablet by mouth once daily. - kasejfoafpr-oapjujyhe-uysnpozd (TRELEGY ELLIPTA) 100-62.5-25 mcg inhalation powder Inhale 1 Puff as instructed once daily. - cyclobenzaprine (FLEXERIL) 10 mg tablet Take 1 tablet by mouth at bedtime as needed for muscle spasm or pain. - spironolactone (ALDACTONE) 25 mg tablet Take 1 tablet by mouth once daily. - buPROPion XL (WELLBUTRIN XL) 300 mg 24 hr tablet Take 1 tablet by mouth once daily. - ipratropium (ATROVENT) 0.02 % nebulizer solution Use 2.5 mL via nebulizer four times a day as needed. OVER 5-15 MINUTES FOR WHEEZING OR SHORTNESS OF BREATH J44.9 - potassium chloride SR (MICRO-K) 10 mEq CR capsule TAKE 1 CAPSULE BY MOUTH 3 TIMES DAILY - nitroglycerin sublingual (NITROQUICK) 0.4 mg SL tablet Dissolve 1 tablet under the tongue as needed. FOR CHEST PAIN. IF NO RELIEF CALL 911 - COMPOUNDED PRESCRIPTION Oxygen 2L at night and as needed - COMPOUNDED PRESCRIPTION Nebulizer machine DX: 496/143.90 Problem List As Of Date 07/25/2024 Noted Resolved COPD with chronic bronchitis (HCC) [J44.89] 07/08/2005 Essential hypertension [I10] 07/08/2005 Unspecified asthma(493.90) [J45.909] 07/08/2005 11/26/2014 HYPOPOTASSEMIA [E87.6] 07/09/2005 Major depressive disorder [F32.9] 07/09/2005 Palpitations [R00.2] 04/22/2006 10/26/2014 INSOMNIA NOS [G47.00] 05/24/2006 VENOUS INSUFFICIENCY NOS [I87.2] 05/24/2006 BRONCHIECTASIS W/O ACUTE EXACERBATN [J47.9] 10/04/2008 Impaired fasting glucose [R73.01] 12/05/2010 Cholecystitis with cholelithiasis [K80.10] 04/08/2013 10/26/2014 Tobacco use [Z72.0] 10/26/2014 Nocturnal oxygen desaturation [G47.34] 10/26/2014 Family history of colon cancer [Z80.0] 11/09/2014 Primary insomnia [F51.01] 11/26/2015 Anxiety [F41.9] 02/10/2018 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 [facility]11-27-2024 Miscellaneous Notes* Telephone Encounter - Ana Luisa Cruz LPN - 07/19/2024 4:51 PM EST 09/17/23 rx for adipex was send per other encounter. * Telephone Encounter - Ana Luisa Cruz LPN - 07/13/2024 10:39 AM EST It wouldn't be covered for weight loss and pt is not diabetic. Pt's insurance doesn't covered any weight loss medicines. It is excluded drug class. * Telephone Encounter - Sg Clemons PA-C - 07/12/2024 10:56 AM EST Patient was previously on Victoza. Will this medication be covered? Sg Clemons PA-C * Telephone Encounter - Ana Luisa Cruz LPN - 07/12/2024 9:51 AM EST Pt is not diabetic. There is no phone number to call Esequiel back from [facility]. * Telephone Encounter - Alla Mariee LPN - 07/12/2024 9:07 AM EST Esequiel lucero [facility] called again wanting to know if the provider can approve Mounjaro or get PA approved. Advised provider is out of the office today john walter will send this to PA nurse to address. Alla Mariee LPN * Telephone Encounter - Fallon Hernandez RN - 07/12/2024 8:43 AM EST Esequiel with [facility] calls on behalf of patient to ask if provider was going to approve medication. Notified Esequiel that PA had been submitted and denied. Contacted patient and let her know. Patient asking if provider would send in medication discussed at that she had been on before. Patient not certain the name of the medication. Reviewed medication list and noted patient previously took Adipex and Victoza. Fallon Hernandez RN * Telephone Encounter - Ana Luisa Cruz LPN - 07/11/2024 1:51 PM EST Fyi to provider. * Telephone Encounter - Ana Luisa Cruz LPN - 07/11/2024 11:22 AM EST Images from the original note were not included. Electronic PA rec'd and completed for mounjaro. This is not covered. [facility] any medicines for [facility]. This med class is excluded. Note from payer: Coverage is provided when the prescribed medication is used for a Food and Drug Administration (FDA) approved indication. Approved indications include the treatment of diabetes mellitus, type 2. The [facility] Policy for Medical Necessity as posted on the [facility] website and [facility] Preferred Drug List criteria were reviewed and per [place] Administrative Code Rule 5160-1-01 (C) and (B), a medically necessary service must include: generally accepted standards of medical practice, be clinically appropriate in administration, treatment and outcome and be the lowestcost alternative to effectively treat the condition. Please contact your provider to assist you with other treatment options that might be covered under your benefit package, or other services that might be available through the community. Payer: [facility] Electronic appeal: Not supported View History Notes Time User Attachment Attachment received from payer. 07/11/2024 11:22 AM [facility], Rx Priorauth In Document Medication Being Authorized tirzepatide (MOUNJARO) 2.5 mg/0.5 mL pen injector Inject 2.5 mg subcutaneously one time a week. Dispense: 2 mL Refills: 2 Start: 07/11/2024 End: 10/09/2024 Class: Normal Diagnoses: Class 2 obesity with body mass index (BMI) of 37.0 to 37.9 in adult, unspecified obesity type, unspecified whether serious comorbidity present This order has been released to its destination. To be filled at: [facility] [id number] - [place] [address] [address] [facility] - [phone] documented in this encounterL[facility] Telephone encounter Note * Telephone Encounter - Alla Mariee LPN - 07/18/2024 2:52 PM EST Patient notified and verbalized understanding states that she will come in tomorrow to get completed. Alla Mariee LPN [facility]11-26-2024 Miscellaneous Notes* Telephone Encounter - Alla Mariee LPN - 07/18/2024 2:52 PM EST Patient notified and verbalized understanding states that she will come in tomorrow to get completed. Alla Mariee LPN * Telephone Encounter - Sg Clemons PA-C - 07/18/2024 2:08 PM EST Please let patient know that I sent in a prescription for Adipex. She was on this previously. If starting, needs to have a urine tox screen completed- ordered. She can follow up at her appointment on 08/10/24 with PCP. Sg Clemons PA-C 07/18/2024 * Telephone Encounter - Penny Anne MA - 07/13/2024 1:50 PM EST Patient was notified of results from provider and understands medication for incontinence was sent as well. Explained to patient that Esequiel the [facility] rep does not work with PA department. GPL-1 PA are only going to be approved for type 2 DM with A1C 6.4 or higher since this drug is not approved with FDA for [place] for weight loss. Patient understands only was to be approved has to meet those medical requirements. Patient is asking if there is anything else she can do for weight loss in pill form? Penny Anne MA * Telephone Encounter - Sg Clemons PA-C - 07/13/2024 12:29 PM EST Please provide contact information for Esequiel, and check to see if there is something different thatneeds to be done to approve medication. Can start myrbetriq 1 tab once daily. Keflex sent to the pharmacy for possible UTI while awaiting Urine Culture. Seek care in ED for fever >100, severe back/abdominal pain, vomiting. The following approved medication requests have been transmitted electronically. Requested Prescriptions Signed Prescriptions Disp Refills mirabegron (MYRBETRIQ) 25 mg Tb24 30 tablet 2 Sig: Take 1 tablet by mouth once daily. Authorizing Provider: SG CLEMONS cephALEXin (KEFLEX) 500 mg capsule 10 capsule 0 Sig: Take 1 capsule by mouth two times a day for 5 days. Authorizing Provider: SG CLEMONS PA-C * Telephone Encounter - Louisa Sumner RN - 07/13/2024 11:54 AM EST Patient notified of results and provider's instructions. Patient verbalizes understanding. Please place order for antibiotics. Patient is also asking about medication for incontinence. Pharmacy is [facility] Patient states that she had spoke with Esequiel from [facility] who had told her that medication Mounjaro would be approved all provider would have to do is place order. Louisa Sumner RN * Telephone Encounter - Sg Clemons PA-C - 07/13/2024 11:12 AM EST Please let patient know that her urine did show positive for possible infection. Unfortunately it do no reflex for a culture. I would ask if the patient could please stop by the lab to give another specimen and I will send an antibiotic to the pharmacy she can start in the meantime while we wait for the culture results. Please hold on starting until she is able to give a specimen to the lab today. Unfortunately, her insurance does not cover Victoza, Mounjaro or any others in that class for weight loss. Sg Clemons PA-C 07/13/2024 * Telephone Encounter - Louisa Sumner RN - 07/12/2024 4:33 PM EST Patient calls and is asking about result for the urine testing that was done yesterday. Please review and advise, Louisa Sumner RN documented in this encounterLake [facility] Telephone encounter Note * Telephone Encounter - Sg Clemons PA-C - 07/18/2024 2:08 PM EST Please let patient know that I sent in a prescription for Adipex. She was on this previously. If starting, needs to have a urine tox screen completed- ordered. She can follow up at her appointment on 08/10/24 with PCP. Sg Clemons PA-C 07/18/2024 [facility]11-25-2024 Telephone encounter Note* Telephone Encounter - Ariane Arrieta MA - 07/17/2024 2:24 PM EST Pt notified of results via mychart. Ariane Arrieta Ma [facility]11-25-2024 Miscellaneous Notes* Telephone Encounter - Ariane Arrieta MA - 07/17/2024 2:24 PM EST Pt notified of results via mychart. Ariane Arrieta Ma * Telephone Encounter - Sg Clemons PA-C - 07/17/2024 7:36 AM EST Please let patient know that her culture did not show a urine infection, possible contamination with collection. Advise that that she follow up if symptoms are not improving. Sg Clemons PA-C * Telephone Encounter - Yolanda Almanzar MA - 07/13/2024 2:27 PM EST urine culture is in process * Telephone Encounter - Kadi Rizzo APRN.CNP - 07/13/2024 8:02 AM EST On 07/11 patient had UA and order for reflex to culture. Doesn't look a culture was run? Do we knowwhy? And can this still be done? Kadi Rizzo APRN.CNP documented in this encounterLake [facility] Telephone encounter Note * Telephone Encounter - Sg Clemons PA-C - 07/17/2024 7:36 AM EST Please let patient know that her culture did not show a urine infection, possible contamination with collection. Advise that that she follow up if symptoms are not improving. Sg Clemons PA-C [facility]11-22-2024 Telephone encounter Note* Telephone Encounter - Cheyanne Cortez APRN.CNP - 07/14/2024 11:41 AM EST I have switched her to nitrofurantoin Thank you Cheyanne Cortez APRN.CNP [facility]11-22-2024 Miscellaneous Notes* Telephone Encounter - Cheyanne Cortez APRN.CNP - 07/14/2024 11:41 AM EST I have switched her to nitrofurantoin Thank you Cheyanne Cortez APRN.CNP * Telephone Encounter - Ana Luisa Cruz LPN - 07/14/2024 10:48 AM EST Pharmacy notified sent to pcp to verify pt has allergy to penicillin. Do you still want the keflex? documented in this encounterLake [facility] Telephone encounter Note * Telephone Encounter - Ana Luisa Cruz LPN - 07/14/2024 10:48 AM EST Pharmacy notified sent to pcp to verify pt has allergy to penicillin. Do you still want the keflex? [facility]11-21-2024 Telephone encounter Note* Telephone Encounter - Yolanda Almanzar MA - 07/13/2024 2:27 PM EST urine culture is in process [facility]11-21-2024 Telephone encounter Note* Telephone Encounter - Penny Anne MA - 07/13/2024 1:50 PM EST Patient was notified of results from provider and understands medication for incontinence was sent as well. Explained to patient that Esequiel the [facility] rep does not work with PA department. GPL-1 PA are only going to be approved for type 2 DM with A1C 6.4 or higher since this drug is not approved with FDA for soley for weight loss. Patient understands only was to be approved has to meet those medical requirements. Patient is asking if there is anything else she can do for weight loss in pill form? Penny Anne MA [facility]11-21-2024 Telephone encounter Note* Telephone Encounter - Sg Clemons PA-C - 07/13/2024 12:29 PM EST Please provide contact information for Esequiel, and check to see if there is something different thatneeds to be done to approve medication. Can start myrbetriq 1 tab once daily. Keflex sent to the pharmacy for possible UTI while awaiting Urine Culture. Seek care in ED for fever >100, severe back/abdominal pain, vomiting. The following approved medication requests have been transmitted electronically. Requested Prescriptions Signed Prescriptions Disp Refills mirabegron (MYRBETRIQ) 25 mg Tb24 30 tablet 2 Sig: Take 1 tablet by mouth once daily. Authorizing Provider: SG CLEMONS cephALEXin (KEFLEX) 500 mg capsule 10 capsule 0 Sig: Take 1 capsule by mouth two times a day for 5 days. Authorizing Provider: SG CLEMONS PA-C [facility]11-21-2024 Telephone encounter Note* Telephone Encounter - Louisa Sumner RN - 07/13/2024 11:54 AM EST Patient notified of results and provider's instructions. Patient verbalizes understanding. Please place order for antibiotics. Patient is also asking about medication for incontinence. Pharmacy is [facility] Patient states that she had spoke with Esequiel from [facility] who had told her that medication Mounjaro would be approved all provider would have to do is place order. Louisa Sumner RN [facility]11-21-2024 Telephone encounter Note* Telephone Encounter - Sg Clemons PA-C - 07/13/2024 11:12 AM EST Please let patient know that her urine did show positive for possible infection. Unfortunately it do no reflex for a culture. I would ask if the patient could please stop by the lab to give another specimen and I will send an antibiotic to the pharmacy she can start in the meantime while we wait for the culture results. Please hold on starting until she is able to give a specimen to the lab today. Unfortunately, her insurance does not cover Victoza, Mounjaro or any others in that class for weight loss. Sg Clemons PA-C 07/13/2024 [facility]11-21-2024 Telephone encounter Note* Telephone Encounter - Ana Luisa Cruz LPN - 07/13/2024 10:39 AM EST It wouldn't be covered for weight loss and pt is not diabetic. Pt's insurance doesn't covered any weight loss medicines. It is excluded drug class. [facility]11-21-2024 Telephone encounter Note* Telephone Encounter - Kadi Rizzo APRN.CNP - 07/13/2024 8:02 AM EST On 07/11 patient had UA and order for reflex to culture. Doesn't look a culture was run? Do we knowwhy? And can this still be done? Kadi Rizzo APRN.PLANOGRAPH OPERATOR [facility] Work Phone: [phone] 105-790511-20-2024 Telephone encounter Note* Telephone Encounter - Louisa Sumner RN - 07/12/2024 4:33 PM EST Patient calls and is asking about result for the urine testing that was done yesterday. Please review and advise, Louisa Sumner RN [facility]11-20-2024 Telephone encounter Note* Telephone Encounter - Sg Clemons PA-C - 07/12/2024 10:56 AM EST Patient was previously on Victoza. Will this medication be covered? Sg Clemons PA-C [facility]11-20-2024 Telephone encounter Note* Telephone Encounter - Ana Luisa Cruz LPN - 07/12/2024 9:51 AM EST Pt is not diabetic. There is no phone number to call Esequiel back from [facility]. [facility]11-20-2024 Telephone encounter Note* Telephone Encounter - Alla Mariee LPN - 07/12/2024 9:07 AM EST Esequiel lucero [facility] called again wanting to know if the provider can approve Mounjaro or get PA approved. Advised provider is out of the office today bu jose angel will send this to PA nurse to address. Alla Mariee LPN [facility]11-20-2024 Telephone encounter Note* Telephone Encounter - Fallon Hernandez RN - 07/12/2024 8:43 AM EST Esequiel with [facility] calls on behalf of patient to ask if provider was going to approve medication. Notified Esequiel that PA had been submitted and denied. Contacted patient and let her know. Patient asking if provider would send in medication discussed at that she had been on before. Patient not certain the name of the medication. Reviewed medication list and noted patient previously took Adipex and Victoza. Fallon Hernandez RN [facility]11-19-2024 Telephone encounter Note* Telephone Encounter - Ana Luisa Cruz LPN - 07/11/2024 1:51 PM EST Fyi to provider. [facility]11-19-2024 Telephone encounter Note* Telephone Encounter - Ana Luisa Cruz LPN - 07/11/2024 11:22 AM EST Images from the original note were not included. Electronic PA rec'd and completed for mounjaro. This is not covered. [employer] doesn't cover any medicines for weight loss. This med class is excluded. Note from payer: Coverage is provided when the prescribed medication is used for a Food and Drug Administration (FDA) approved indication. Approved indications include the treatment of diabetes mellitus, type 2. The [facility] Policy for Medical Necessity as posted on the [facility] website and [facility] Preferred Drug List criteria were reviewed and per [place] Administrative Code Rule 5160-1-01 (C) and (B), a medically necessary service must include: generally accepted standards of medical practice, be clinically appropriate in administration, treatment and outcome and be the lowestcost alternative to effectively treat the condition. Please contact your provider to assist you with other treatment options that might be covered under your benefit package, or other services that might be available through the community. Payer: [facility] Electronic appeal: Not supported View History Notes Time User Attachment Attachment received from payer. 07/11/2024 11:22 AM [facility], Rx Priorauth In Document Medication Being Authorized tirzepatide (MOUNJARO) 2.5 mg/0.5 mL pen injector Inject 2.5 mg subcutaneously one time a week. Dispense: 2 mL Refills: 2 Start: 07/11/2024 End: 10/09/2024 Class: Normal Diagnoses: Class 2 obesity with body mass index (BMI) of 37.0 to 37.9 in adult, unspecified obesity type, unspecified whether serious comorbidity present This order has been released to its destination. To be filled at: [facility] [address] [place] [address] [address] - [phone] [facility]11-19-2024 NoteHNO ID: [id number] Author: SG CLEMONS PA-C Service: ? Author Type: Physician Aerial Erector Type: Progress Notes Filed: 07/17/2024 14:27 Note Text: 07/11/2024 Patient presents with: Follow Up: discuss medication and weight gain SUBJECTIVE: This is a 59 year old that is here today for complaint of: Weight- previously on mounjaro, which was working well per patient, but then insurance no longer covered. Same with Victoza. She is requesting that she try one of these medications again. No history of DM. She is on wellbutrin 300 mg. Last 6 Encounter Wt Readings: Date: Wt: 07/11/2024 93.9 kg (207 lb) 01/05/2024 85.7 kg (189 lb) 01/05/2024 85.7 kg (189 lb) 11/09/2023 84.8 kg (187 lb) 11/09/2023 84.8 kg (187 lb) 10/19/2023 79.8 kg (176 lb)]. Also c/o urinary incontinence, both urgency and stress. Previously on a medication, but uncertain of name which was helpful. She also notes a strong odor to urine. Denies dysuria, urinary frequency, fever/chills, vomiting, back pain, abdominal pain, hematuria. PAST MEDICAL HISTORY Diagnosis Date Allergies ASTHMA UNSPECIFIED 07/08/2005 Bronchiectasis (HCC) CHRONIC AIRWAY OBSTRUCTION NEC 07/08/2005 Depression Diaphragm dysfunction HYPERTENSION NOS 07/08/2005 ALLERGIES Benadryl [Diphenhydramine Hcl] and Penicillins MEDICATIONS Current Outpatient Medications Medication Sig DULoxetine (CYMBALTA) 30 mg capsule Take 1 capsule by mouth once daily. montelukast (SINGULAIR) 10 mg tablet take 1 tablet by mouth once daily. benzonatate (TESSALON PERLE) 100 mg capsule take 1 capsule by mouth three times daily as needed for cough albuterol HFA (VENTOLIN HFA) 90 mcg/actuation inhaler Inhale 2 Puffs as instructed every 4 hours as needed for wheezing/shortness of breath. traZODone (DESYREL) 100 mg tablet TAKE 3 TABLETS EVERY DAY albuterol (PROVENTIL) 2.5 mg /3 mL (0.083 %) nebulizer solution Use 3 mL via nebulizer every 4 hours as needed for wheezing/shortness of breath. J44.9 furosemide (LASIX) 40 mg tablet Take 1 tablet by mouth once daily. rosuvastatin (CRESTOR) 5 mg tablet Take 1 tablet by mouth daily at bedtime. cholecalciferol (VITAMIN D3) 1,000 unit tab tablet Take 1 tablet by mouth once daily. wcxpofnnicl-ogqmhacak-dqmqfnpp (TRELEGY ELLIPTA) 100-62.5-25 mcg inhalation powder Inhale 1 Puff as instructed once daily. cyclobenzaprine (FLEXERIL) 10 mg tablet Take 1 tablet by mouth at bedtime as needed for muscle spasm or pain. spironolactone (ALDACTONE) 25 mg tablet Take 1 tablet by mouth once daily. buPROPion XL (WELLBUTRIN XL) 300 mg 24 hr tablet Take 1 tablet by mouth once daily. ipratropium (ATROVENT) 0.02 % nebulizer solution Use 2.5 mL via nebulizer four times a day as needed. OVER 5-15 MINUTES FOR WHEEZING OR SHORTNESS OF BREATH J44.9 potassium chloride SR (MICRO-K) 10 mEq CR capsule TAKE 1 CAPSULE BY MOUTH 3 TIMES DAILY nitroglycerin sublingual (NITROQUICK) 0.4 mg SL tablet Dissolve 1 tablet under the tongue as needed. FOR CHEST PAIN. IF NO RELIEF CALL 911 COMPOUNDED PRESCRIPTION Oxygen 2L at night and as needed COMPOUNDED PRESCRIPTION Nebulizer machine DX: 496/143.90 No current facility-administered medications for this visit. SOCIAL HISTORY Social History Tobacco Use Smoking status: Every Day Current packs/day: 2.00 Average packs/day: 2.0 packs/day for 42.4 years (84.8 ttl pk-yrs) Types: Cigarettes Start date: 1982 Smokeless tobacco: Never Tobacco comments: Did not smoke during pregnancies. Former 2 ppd smoker. Less than 1/2ppd 12/22/2022 Vaping Use Vaping status: Never Used Substance Use Topics Alcohol use: No Drug use: No REVIEW OF SYSTEMS See HPI OBJECTIVE: BP (P) 135/92 (BP Site: Left Arm, BP Position: Sitting, BP Cuff Size: Large Adult) Pulse 86 Resp 14 Ht 157.5 cm (5' 2) Wt 93.9 kg (207 lb) SpO2 94% BMI 37.86 kg/m? APPEARANCE Well appearing, alert, in no acute distress, well-hydrated, well nourished. EYES PERRLA, conjunctiva and sclera normal. HEART RRR with normal S1 and S2, LUNG clear to auscultation, No wheezing, rhonchi, rales. abdomen soft, non-tender. BACK: Normal exam ASSESSMENT/PLAN: 1. Class 2 obesity with body mass index (BMI) of 37.0 to 37.9 in adult, unspecified obesity type, unspecified whether serious comorbidity present - ICD9: 278.00, V85.37, ICD10: E66.812, Z68.37 (primary diagnosis) Weight increasing Send for rosio, can also try victoza. - TIRZEPATIDE 2.5 MG/0.5 ML SUBCUTANEOUS PEN INJECTOR 2. Anxiety - ICD9: 300.00, ICD10: F41.9 Currently on cymbalta 30mg, will increase to 60 mg. Also on this for neuropathy. 3. Episode of recurrent major depressive disorder, unspecified depression episode severity (HCC) - ICD9: 296.30, ICD10: F33.9 Increase cymbalta as above to 60 mg. 4. Stress incontinence - ICD9: [id number], ICD10: N39.3 Check urine first, would send myrbetriq - URINALYSIS WITH MICROSCOPIC, REFLEX CULTURE 5. U (more content not included)...[facility]11-19-2024 History of Present illness Narrative* Sg Clemons PA-C - 07/11/2024 11:07 AM EST 07/11/2024 Patient presents with: Follow Up: discuss medication and weight gain SUBJECTIVE: This is a 59 year old that is here today for complaint of: Weight- previously on mounjaro, which was working well per patient, but then insurance no longer covered. Same with Victoza. She is requesting that she try one of these medications again. No history of DM. She is on wellbutrin 300 mg. Last 6 Encounter Wt Readings: Date: Wt: 07/11/2024 93.9 kg (207 lb) 01/05/2024 85.7 kg (189 lb) 01/05/2024 85.7 kg (189 lb) 11/09/2023 84.8 kg (187 lb) 11/09/2023 84.8 kg (187 lb) 10/19/2023 79.8 kg (176 lb)]. Also c/o urinary incontinence, both urgency and stress. Previously on a medication, but uncertain of name which was helpful. She also notes a strong odor to urine. Denies dysuria, urinary frequency, fever/chills, vomiting, back pain, abdominal pain, hematuria. PAST MEDICAL HISTORY Diagnosis Date Allergies ASTHMA UNSPECIFIED 07/08/2005 Bronchiectasis (HCC) CHRONIC AIRWAY OBSTRUCTION NEC 07/08/2005 Depression Diaphragm dysfunction HYPERTENSION NOS 07/08/2005 ALLERGIES Benadryl [Diphenhydramine Hcl] and Penicillins MEDICATIONS Current Outpatient Medications Medication Sig DULoxetine (CYMBALTA) 30 mg capsule Take 1 capsule by mouth once daily. montelukast (SINGULAIR) 10 mg tablet take 1 tablet by mouth once daily. benzonatate (TESSALON PERLE) 100 mg capsule take 1 capsule by mouth three times daily as needed forcough albuterol HFA (VENTOLIN HFA) 90 mcg/actuation inhaler Inhale 2 Puffs as instructed every 4 hours asneeded for wheezing/shortness of breath. traZODone (DESYREL) 100 mg tablet TAKE 3 TABLETS EVERY DAY albuterol (PROVENTIL) 2.5 mg /3 mL (0.083 %) nebulizer solution Use 3 mL via nebulizer every 4 hours as needed for wheezing/shortness of breath. J44.9 furosemide (LASIX) 40 mg tablet Take 1 tablet by mouth once daily. rosuvastatin (CRESTOR) 5 mg tablet Take 1 tablet by mouth daily at bedtime. cholecalciferol (VITAMIN D3) 1,000 unit tab tablet Take 1 tablet by mouth once daily. fxueppvlkeb-zecyintsw-zurvtzzq (TRELEGY ELLIPTA) 100-62.5-25 mcg inhalation powder Inhale 1 Puff asinstructed once daily. cyclobenzaprine (FLEXERIL) 10 mg tablet Take 1 tablet by mouth at bedtime as needed for muscle spasm or pain. spironolactone (ALDACTONE) 25 mg tablet Take 1 tablet by mouth once daily. buPROPion XL (WELLBUTRIN XL) 300 mg 24 hr tablet Take 1 tablet by mouth once daily. ipratropium (ATROVENT) 0.02 % nebulizer solution Use 2.5 mL via nebulizer four times a day as needed. OVER 5-15 MINUTES FOR WHEEZING OR SHORTNESS OF BREATH J44.9 potassium chloride SR (MICRO-K) 10 mEq CR capsule TAKE 1 CAPSULE BY MOUTH 3 TIMES DAILY nitroglycerin sublingual (NITROQUICK) 0.4 mg SL tablet Dissolve 1 tablet under the tongue as needed. FOR CHEST PAIN. IF NO RELIEF CALL 911 COMPOUNDED PRESCRIPTION Oxygen 2L at night and as needed COMPOUNDED PRESCRIPTION Nebulizer machine DX: 496/143.90 No current facility-administered medications for this visit. SOCIAL HISTORY Social History Tobacco Use Smoking status: Every Day Current packs/day: 2.00 Average packs/day: 2.0 packs/day for 42.4 years (84.8 ttl pk-yrs) Types: Cigarettes Start date: 1982 Smokeless tobacco: Never Tobacco comments: Did not smoke during pregnancies. Former 2 ppd smoker. Less than 1/2ppd 12/22/2022 Vaping Use Vaping status: Never Used Substance Use Topics Alcohol use: No Drug use: No REVIEW OF SYSTEMS See HPI OBJECTIVE: BP (P) 135/92 (BP Site: Left Arm, BP Position: Sitting, BP Cuff Size: Large Adult) Pulse 86 Resp 14 Ht 157.5 cm (5' 2) Wt 93.9 kg (207 lb) SpO2 94% BMI 37.86 kg/m APPEARANCE Well appearing, alert, in no acute distress, well-hydrated, well nourished. EYES PERRLA, conjunctiva and sclera normal. HEART RRR with normal S1 and S2, LUNG clear to auscultation, No wheezing, rhonchi, rales. abdomen soft, non-tender. BACK: Normal exam ASSESSMENT/PLAN: 1. Class 2 obesity with body mass index (BMI) of 37.0 to 37.9 in adult, unspecified obesity type, unspecified whether serious comorbidity present - ICD9: 278.00, V85.37, ICD10: E66.812, Z68.37 (primary diagnosis) Weight increasing Send for rosio, can also try victoza. - TIRZEPATIDE 2.5 MG/0.5 ML SUBCUTANEOUS PEN INJECTOR 2. Anxiety - ICD9: 300.00, ICD10: F41.9 Currently on cymbalta 30mg, will increase to 60 mg. Also on this for neuropathy. 3. Episode of recurrent major depressive disorder, unspecified depression episode severity (HCC) - ICD9: 296.30, ICD10: F33.9 Increase cymbalta as above to 60 mg. 4. Stress incontinence - ICD9: [id number], ICD10: N39.3 Check urine first, would send myrbetriq - URINALYSIS WITH MICROSCOPIC, REFLEX CULTURE 5. Urge incontinence - ICD9: 788.31, ICD10: N39.41 As above Reviewed red flags and when to seek care sooner. - URINALYSIS WITH MICROSCOPIC, REFLEX CULTURE The patient indicates understanding of these issues and agrees with the plan. Sg Clemons PA-C [facility] encounter Note * Telephone Encounter - Heather Fairbanks LPN - 07/07/2024 7:44 AM EST The patient has been identified by name and date of : Yes Caregiver verified no other encounters exist for this prescription request: Yes Caregiver confirmed with patient/requestor that no other refills are due, in the near future, with this provider at this time: Yes The last office visit in the department: 10/19/2023 Does the patient have a future office visit with this provider/department: Yes 07-11-24 Requested Prescriptions Pending Prescriptions Disp Refills DULoxetine (CYMBALTA) 30 mg capsule 30 capsule 2 Sig: Take 1 capsule by mouth once daily. Heather Fairbanks LPN July 07, 2024 7:55 AM [facility]11-15-2024 Miscellaneous Notes* Telephone Encounter - Heather Fairbanks LPN - 07/07/2024 7:44 AM EST The patient has been identified by name and date of : Yes Caregiver verified no other encounters exist for this prescription request: Yes Caregiver confirmed with patient/requestor that no other refills are due, in the near future, with this provider at this time: Yes The last office visit in the department: 10/19/2023 Does the patient have a future office visit with this provider/department: Yes 07-11-24 Requested Prescriptions Pending Prescriptions Disp Refills DULoxetine (CYMBALTA) 30 mg capsule 30 capsule 2 Sig: Take 1 capsule by mouth once daily. Heather Fairbanks LPN July 07, 2024 7:55 AM documented in [facility] NoteHNO ID: [id number] Author: NISHA CARRANZA MA Service: ? Author Type: Lens Assorter Type: Progress Notes Filed: 06/28/2024 13:59 Note Text: POPULATION HEALTH NAVIGATION OUTREACH Action/FYI unable to LVM, mailbox is full. T[employer] message sent ANNUAL MEDICARE WELLNESS EXAM COLONOSCOPY MAMMOGRAMS FLU VAC HCC CLOSURE Reason for Outreach Care Gap/HCC or Scheduling Wellness Visits Care Gaps due: Medicare Annual Wellness Visit Breast Cancer Screening Colorectal Cancer Screening Flu Vaccine Patient Contacted: Unable or unnecessary to reach patient: Unable to leave message flaregames message sent Navigation Signature: Nisha Carranza MA June 28, 2024 9:14 [facility]11-06-2024 History of Present illness Narrative* Nisha Carranza MA - 06/28/2024 9:14 AM EST POPULATION HEALTH NAVIGATION OUTREACH Action/FYI unable to LVM, mailbox is full. [email or web address] message sent ANNUAL MEDICARE WELLNESS EXAM COLONOSCOPY MAMMOGRAMS FLU VAC HCC CLOSURE Reason for Outreach Care Gap/HCC or Scheduling Wellness Visits Care Gaps due: Medicare Annual Wellness Visit Breast Cancer Screening Colorectal Cancer Screening Flu Vaccine Patient Contacted: Unable or unnecessary to reach patient: Unable to leave message flaregames message sent Navigation Signature: Nisha Carranza MA June 28, 2024 9:14 AM documented in this [facility] NotePatient Outreach (NETNAV) FRANCIS DIEZ ([id number]) 1965 F Date Time Provider Department 06/28/24 NISHA CARRANZA NETNAV During your visit today, we recorded the following information about you: Nisha Carranza MA 06/28/2024 1:59 PM Signed POPULATION HEALTH NAVIGATION OUTREACH Action/FYI unable to LVM, mailbox is full. T[employer] message sent ANNUAL MEDICARE WELLNESS EXAM COLONOSCOPY MAMMOGRAMS FLU VAC HCC CLOSURE Reason for Outreach Care Gap/HCC or Scheduling Wellness Visits Care Gaps due: Medicare Annual Wellness Visit Breast Cancer Screening Colorectal Cancer Screening Flu Vaccine Patient Contacted: Unable or unnecessary to reach patient: Unable to leave message flaregames message sent Navigation Signature: Nisha Carranza MA June 28, 2024 9:14 AM Allergies As of Date: 06/28/2024 Noted Allergy Reaction BENADRYL (DIPHENHYDRAMINE HCL) 11/13/2014 12 - Shortness of Breath Comments: She is not sure of the reaction. Was given it in the ER years ago. PENICILLINS 09/01/2010 4 - Hives Date Reviewed: 01/05/2024 Reviewed by: Florina Arenas PA-C - Fully Assessed Reason for Visit: Population Health Navigation Outreach [3910] [facility] WORK[facility]ENCAmanda CONNOR PCSA Prescriptions as of 06/28/2024 - montelukast (SINGULAIR) 10 mg tablet take 1 tablet by mouth once daily. - benzonatate (TESSALON PERLE) 100 mg capsule take 1 capsule by mouth three times daily as needed for cough - albuterol HFA (VENTOLIN HFA) 90 mcg/actuation inhaler Inhale 2 Puffs as instructed every 4 hours as needed for wheezing/shortness of breath. - traZODone (DESYREL) 100 mg tablet TAKE 3 TABLETS EVERY DAY - DULoxetine (CYMBALTA) 30 mg capsule Take 1 capsule by mouth once daily. - albuterol (PROVENTIL) 2.5 mg /3 mL (0.083 %) nebulizer solution Use 3 mL via nebulizer every 4 hours as needed for wheezing/shortness of breath. J44.9 - furosemide (LASIX) 40 mg tablet Take 1 tablet by mouth once daily. - rosuvastatin (CRESTOR) 5 mg tablet Take 1 tablet by mouth daily at bedtime. - cholecalciferol (VITAMIN D3) 1,000 unit tab tablet Take 1 tablet by mouth once daily. - qfcjcqcjckb-irnqgypou-tplnpdvw (TRELEGY ELLIPTA) 100-62.5-25 mcg inhalation powder Inhale 1 Puff as instructed once daily. - cyclobenzaprine (FLEXERIL) 10 mg tablet Take 1 tablet by mouth at bedtime as needed for muscle spasm or pain. - spironolactone (ALDACTONE) 25 mg tablet Take 1 tablet by mouth once daily. - buPROPion XL (WELLBUTRIN XL) 300 mg 24 hr tablet Take 1 tablet by mouth once daily. - ipratropium (ATROVENT) 0.02 % nebulizer solution Use 2.5 mL via nebulizer four times a day as needed. OVER 5-15 MINUTES FOR WHEEZING OR SHORTNESS OF BREATH J44.9 - potassium chloride SR (MICRO-K) 10 mEq CR capsule TAKE 1 CAPSULE BY MOUTH 3 TIMES DAILY - nitroglycerin sublingual (NITROQUICK) 0.4 mg SL tablet Dissolve 1 tablet under the tongue as needed. FOR CHEST PAIN. IF NO RELIEF CALL 911 - COMPOUNDED PRESCRIPTION Oxygen 2L at night and as needed - COMPOUNDED PRESCRIPTION Nebulizer machine DX: 496/143.90 Problem List As Of Date 06/28/2024 Noted Resolved COPD with chronic bronchitis (HCC) [J44.89] 07/08/2005 Essential hypertension [I10] 07/08/2005 Unspecified asthma(493.90) [J45.909] 07/08/2005 11/26/2014 HYPOPOTASSEMIA [E87.6] 07/09/2005 Major depressive disorder [F32.9] 07/09/2005 Palpitations [R00.2] 04/22/2006 10/26/2014 INSOMNIA NOS [G47.00] 05/24/2006 VENOUS INSUFFICIENCY NOS [I87.2] 05/24/2006 BRONCHIECTASIS W/O ACUTE EXACERBATN [J47.9] 10/04/2008 Impaired fasting glucose [R73.01] 12/05/2010 Cholecystitis with cholelithiasis [K80.10] 04/08/2013 10/26/2014 Tobacco use [Z72.0] 10/26/2014 Nocturnal oxygen desaturation [G47.34] 10/26/2014 Family history of colon cancer [Z80.0] 11/09/2014 Primary insomnia [F51.01] 11/26/2015 Anxiety [F41.9] 02/10/2018 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 Chest pain [R07.9] 12/01/2021 Mixed hyperlipidemia [E78.2] 09/20/2023 Class 2 severe obesity due to excess calories w*09/24/2023 Obesity, Class I, BMI 30-34.9 [E66.811] 10/19/2023 Encounter Status:Closed by NISHA CARRANZA on 06/28/24[facility] Hospital Discharge instructions* Discharge Instructions* Fer Bansal PA-C - 06/16/2024 3:52 PM EDT May continue taking Tylenol and cool compresses. Please take antibiotics as prescribed and follow-up with your eye doctor on Wednesday. Return to the ED if you have any new or worsening visual changes, increased eye pain, headaches, or any other new or concerning symptoms. * Attachments The following attachments cannot be sent through Care Everywhere. * Subconjunctival Hemorrhage (Portuguese) documented in this [facility]10-25-2024 Emergency department Note* Fer Bansal PA-C - 06/16/2024 1:52 PM EDT EMERGENCY DEPARTMENT ENCOUNTER Pt Name: Francis Diez Birthdate 1965 Date of evaluation: 06/16/2024 ED Provider: Fer Bansal PA-C CHIEF COMPLAINT Chief Complaint Patient presents with Eye Pain Patient complains of eye pressure x 2-3 days with redness HISTORY OF PRESENT ILLNESS (Location/Symptom, Timing/Onset, Context/Setting, Quality, Duration, Modifying Factors, Severity) Note limiting factors. I wore appropriate PPE for the entirety of this encounter. HPI Francis Diez is a 59 y.o. female who presents to the emergency department chief complaint of righteye pain and redness. Woke up with this right eye pain approximately 3 days ago. Noticed her right eye was injected and red. States is a pressure type pain in her right eye without visual changes including diplopia, blurry vision, floaters. Denies any foreign body sensation, increased drainage or discharge. Denies any history of glaucoma or other ocular issues. Saw her eye doctor earlier this year. States she wears corrective lenses but no contacts. Denies any severe headache, arm, leg weakness, visual changes, trouble speaking, trouble walking. Denies any fall or trauma to the region. Deniesany use of yhkm-vzq-kbcfjlu drops. Nursing Notes were reviewed. Limitations to history: None Outside historians: None REVIEW OF SYSTEMS Review of Systems 14 systems reviewed, positives and pertinent negatives as per HPI. All other systems were reviewed and are negative. PAST MEDICAL HISTORY Past Medical History: Diagnosis Date Anxiety Bronchiectasis (HCC) Class 2 severe obesity due to excess calories with serious comorbidity and body mass index (BMI) of35.0 to 35.9 in adult (HCC) COPD (chronic obstructive pulmonary disease) (HCC) Diaphragm paralysis Hypertension Insomnia Major depressive disorder Mixed hyperlipidemia Nocturnal oxygen desaturation Venous insufficiency (chronic) (peripheral) SURGICAL HISTORY Past Surgical History: Procedure Laterality Date CHOLECYSTECTOMY HYSTERECTOMY LUNG SURGERY CURRENT MEDICATIONS Previous Medications No medications on file ALLERGIES Benadryl [diphenhydramine] and Penicillins FAMILY HISTORY No family history on file. SOCIAL HISTORY Social History Socioeconomic History Marital status: Single Tobacco Use Smoking status: Every Day Current packs/day: 0.50 Average packs/day: 0.5 packs/day for 41.8 years (20.9 ttl pk-yrs) Types: Cigarettes Start date: 1982 Social Drivers of Health Financial Resource Strain: Medium Risk (11/27/2023) Received from [facility] Overall Financial Resource Strain (CARDIA) Difficulty of Paying Living Expenses: Somewhat hard Food Insecurity: Food Insecurity Present (11/27/2023) Received from [facility] Hunger Vital Sign Worried About Running Out of Food in the Last Year: Sometimes true Ran Out of Food in the Last Year: Sometimes true Transportation Needs: No Transportation Needs (11/27/2023) Received from [facility] PRAPARE - Transportation Lack of Transportation (Medical): No Lack of Transportation (Non-Medical): No Physical Activity: Insufficiently Active (11/27/2023) Received from [facility] Exercise Vital Sign Days of Exercise per Week: 2 days Minutes of Exercise per Session: 40 min Stress: Stress Concern Present (11/27/2023) Received from [facility] Citizen Of [place] of Occupational Health - Occupational Stress Questionnaire Feeling of Stress : To some extent Social Connections: Moderately Isolated (11/27/2023) Received from [facility] Social Connection and Isolation Panel [NHANES] Frequency of Communication with Friends and Family: More than three times a week Frequency of Social Gatherings with Friends and Family: Once a week Attends Druze Services: More than 4 times per year Active Member of Clubs or Organizations: No Attends Club or Organization Meetings: Never Marital Status: Housing Stability: Unknown (11/27/2023) Received from [facility] Housing Stability Vital Sign Unable to Pay for Housing in the Last Year: No Unstable Housing in the Last Year: No SCREENINGS PHYSICAL EXAM ED Triage Vitals Temp Heart Rate Resp BP 06/16/24 1400 06/16/24 1400 06/16/24 1400 06/16/24 1400 36.8 C (98.3 F) 86 16 (!) 170/102 SpO2 Temp Source Heart Rate Source Patient Position 06/16/24 1400 06/16/24 1400 06/16/24 1400 -- (!) 90 % Temporal Monitor BP Location FiO2 (%) 06/16/24 1544 -- Right arm Physical Exam Vitals and nursing note reviewed. Constitutional: General: She is not in acute distress. Appearance: She is well-developed. She is not ill-appearing or toxic-appearing. HENT: Head: Normocephalic and atraumatic. Eyes: General: Lids are normal. Lids are everted, no foreign bodies appreciated. Right eye: No foreign body, discharge or hordeolum. Left eye: No foreign body, discharge or hordeolum. Intraocular pressure: Right eye pressure is 14 mmHg. Left eye pressure is 18 mmHg. Measurements were taken using a handheld tonometer. Extraocular Movements: Extraocular movements intact. Right eye: Normal extraocular motion and no nystagmus. Left eye: Normal extraocular motion and no nystagmus. Conjunctiva/sclera: Right eye: Right conjunctiva is injected. Hemorrhage present. No chemosis or exudate. Comments: Right eye examination with subconjunctival hemorrhage noted in conjunctival injection, noforeign body appreciated. Fluorescein stain performed without any corneal uptake/signs of corneal ulcer/abrasion. Globe is soft to palpation, no signs of trauma no periorbital edema or erythema. Cardiovascular: Rate and Rhythm: Normal rate and regular rhythm. Heart sounds: No murmur heard. Pulmonary: Effort: Pulmonary effort is normal. No respiratory distress. Breath sounds: Normal breath sounds. Abdominal: Palpations: Abdomen is soft. Tenderness: There is no abdominal tenderness. Musculoskeletal: General: No swelling. Cervical back: Neck supple. Skin: General: Skin is warm and dry. Capillary Refill: Capillary refill takes less than 2 seconds. Neurological: Mental Status: She is alert. Psychiatric: Mood and Affect: Mood normal. DIAGNOSTIC RESULTS RADIOLOGY (Per Emergency Physician): Interpretation per the Radiologist below, if available at the time of this note: CT orbits/sella wo IV contrast Final Result 1. No facial fracture or retrobulbar hematoma. Report Dictated on Electronically Signed By: Xavier Patel MD Electronically Signed Date/Time: 06/16/2024 3:28 PM EDT LABS: Labs Reviewed - No data to display All other labs were within normal range or not returned as of this dictation. EMERGENCY DEPARTMENT COURSE and DIFFERENTIAL DIAGNOSIS/MDM: Vitals: Vitals: 06/16/24 1400 06/16/24 1401 06/16/24 1544 BP: (!) 170/102 (!) 156/95 BP Location: Right arm Pulse: 86 82 Resp: 16 22 Temp: 36.8 C (98.3 F) TempSrc: Temporal SpO2: (!) 90% 95% Weight: 86.2 kg (190 lb) Height: 1.6 m (5' 3) Medications fluorescein 1 MG ophthalmic strip 1 strip (has no administration in time range) tetracaine (Altacaine) 0.5 % ophthalmic solution 1-2 drop (has no administration in time range) Patient presents with atraumatic right eye pressure x 3 days. States she woke up with this 3 days ago. Denies any visual changes. Visual acuity is 20/80 bilaterally and that is without her correctivelenses. Eye pressures normal bilaterally, see exam above, low suspicion for acute angle closure glaucoma. There is no corneal abrasion or ulcer appreciated. CT orbits was obtained showing no mass or retro-orbital hematoma. There is a noted subconjunctival hemorrhage and conjunctival injection whichmay contribute. No other strokelike symptoms, no visual field deficits appreciated. Will recommend topical antibiotics, follow-up with her eye doctor on Wednesday. Return precautions were described, patient is agreeable. Noted hypertension improved throughout ED visit without intervention, repeat blood pressure 156/95. Vernon Bansal PA-C am the gravel weigher of record. PROCEDURES: Unless otherwise noted below, none Procedures FINAL IMPRESSION 1. Subconjunctival hemorrhage of right eye 2. Acute right eye pain DISPOSITION Discharge 06/16/2024 03:52:39 PM PATIENT REFERRED TO: Your optometist In 3 days DISCHARGE MEDICATIONS: New Prescriptions TRIMETHOPRIM-POLYMYXIN B (POLYTRIM) OPHTHALMIC SOLUTION Administer 1 drop into the right eye in themorning and 1 drop at noon and 1 drop in the evening and 1 drop before bedtime. Do all this for 5 days. (Comment: Please note this report has been produced using speech recognition software and may contain errors related to that system including errors in grammar, punctuation, and spelling, as well as words and phrases that may be inappropriate. If there are any questions or concerns please feel freeto contact the dictating provider for clarification.) Fer Bansal PA-C (electronically signed) Emergency Medicine Provider Fer Bansal PA-C 06/16/24 1555 documented in this [facility]10-25-2024 Physician Emergency department Note* Fer Bansal PA-C - 06/16/2024 1:52 PM EDT EMERGENCY DEPARTMENT ENCOUNTER Pt Name: Francis Diez Birthdate 1965 Date of evaluation: 06/16/2024 ED Provider: Fer Bansal PA-C CHIEF COMPLAINT Chief Complaint Patient presents with Eye Pain Patient complains of eye pressure x 2-3 days with redness HISTORY OF PRESENT ILLNESS (Location/Symptom, Timing/Onset, Context/Setting, Quality, Duration, Modifying Factors, Severity) Note limiting factors. I wore appropriate PPE for the entirety of this encounter. HPI Francis Diez is a 59 y.o. female who presents to the emergency department chief complaint of righteye pain and redness. Woke up with this right eye pain approximately 3 days ago. Noticed her right eye was injected and red. States is a pressure type pain in her right eye without visual changes including diplopia, blurry vision, floaters. Denies any foreign body sensation, increased drainage or discharge. Denies any history of glaucoma or other ocular issues. Saw her eye doctor earlier this year. States she wears corrective lenses but no contacts. Denies any severe headache, arm, leg weakness, visual changes, trouble speaking, trouble walking. Denies any fall or trauma to the region. Deniesany use of tcrg-syn-cclrenu drops. Nursing Notes were reviewed. Limitations to history: None Outside historians: None REVIEW OF SYSTEMS Review of Systems 14 systems reviewed, positives and pertinent negatives as per HPI. All other systems were reviewed and are negative. PAST MEDICAL HISTORY Past Medical History: Diagnosis Date Anxiety Bronchiectasis (HCC) Class 2 severe obesity due to excess calories with serious comorbidity and body mass index (BMI) of35.0 to 35.9 in adult (HCC) COPD (chronic obstructive pulmonary disease) (HCC) Diaphragm paralysis Hypertension Insomnia Major depressive disorder Mixed hyperlipidemia Nocturnal oxygen desaturation Venous insufficiency (chronic) (peripheral) SURGICAL HISTORY Past Surgical History: Procedure Laterality Date CHOLECYSTECTOMY HYSTERECTOMY LUNG SURGERY CURRENT MEDICATIONS Previous Medications No medications on file ALLERGIES Benadryl [diphenhydramine] and Penicillins FAMILY HISTORY No family history on file. SOCIAL HISTORY Social History Socioeconomic History Marital status: Single Tobacco Use Smoking status: Every Day Current packs/day: 0.50 Average packs/day: 0.5 packs/day for 41.8 years (20.9 ttl pk-yrs) Types: Cigarettes Start date: 1982 Social Drivers of Health Financial Resource Strain: Medium Risk (11/27/2023) Received from [facility] Overall Financial Resource Strain (CARDIA) Difficulty of Paying Living Expenses: Somewhat hard Food Insecurity: Food Insecurity Present (11/27/2023) Received from [facility] Hunger Vital Sign Worried About Running Out of Food in the Last Year: Sometimes true Ran Out of Food in the Last Year: Sometimes true Transportation Needs: No Transportation Needs (11/27/2023) Received from [facility] PRAPARE - Transportation Lack of Transportation (Medical): No Lack of Transportation (Non-Medical): No Physical Activity: Insufficiently Active (11/27/2023) Received from [facility] Exercise Vital Sign Days of Exercise per Week: 2 days Minutes of Exercise per Session: 40 min Stress: Stress Concern Present (11/27/2023) Received from [facility] Citizen Of [place] of Occupational Health - Occupational Stress Questionnaire Feeling of Stress : To some extent Social Connections: Moderately Isolated (11/27/2023) Received from [facility] Social Connection and Isolation Panel [NHANES] Frequency of Communication with Friends and Family: More than three times a week Frequency of Social Gatherings with Friends and Family: Once a week Attends Druze Services: More than 4 times per year Active Member of Clubs or Organizations: No Attends Club or Organization Meetings: Never Marital Status: Housing Stability: Unknown (11/27/2023) Received from [facility] Housing Stability Vital Sign Unable to Pay for Housing in the Last Year: No Unstable Housing in the Last Year: No SCREENINGS PHYSICAL EXAM ED Triage Vitals Temp Heart Rate Resp BP 10/25/24 1400 06/16/24 1400 06/16/24 1400 06/16/24 1400 36.8 C (98.3 F) 86 16 (!) 170/102 SpO2 Temp Source Heart Rate Source Patient Position 06/16/24 1400 06/16/24 1400 06/16/24 1400 -- (!) 90 % Temporal Monitor BP Location FiO2 (%) 06/16/24 1544 -- Right arm Physical Exam Vitals and nursing note reviewed. Constitutional: General: She is not in acute distress. Appearance: She is well-developed. She is not ill-appearing or toxic-appearing. HENT: Head: Normocephalic and atraumatic. Eyes: General: Lids are normal. Lids are everted, no foreign bodies appreciated. Right eye: No foreign body, discharge or hordeolum. Left eye: No foreign body, discharge or hordeolum. Intraocular pressure: Right eye pressure is 14 mmHg. Left eye pressure is 18 mmHg. Measurements were taken using a handheld tonometer. Extraocular Movements: Extraocular movements intact. Right eye: Normal extraocular motion and no nystagmus. Left eye: Normal extraocular motion and no nystagmus. Conjunctiva/sclera: Right eye: Right conjunctiva is injected. Hemorrhage present. No chemosis or exudate. Comments: Right eye examination with subconjunctival hemorrhage noted in conjunctival injection, noforeign body appreciated. Fluorescein stain performed without any corneal uptake/signs of corneal ulcer/abrasion. Globe is soft to palpation, no signs of trauma no periorbital edema or erythema. Cardiovascular: Rate and Rhythm: Normal rate and regular rhythm. Heart sounds: No murmur heard. Pulmonary: Effort: Pulmonary effort is normal. No respiratory distress. Breath sounds: Normal breath sounds. Abdominal: Palpations: Abdomen is soft. Tenderness: There is no abdominal tenderness. Musculoskeletal: General: No swelling. Cervical back: Neck supple. Skin: General: Skin is warm and dry. Capillary Refill: Capillary refill takes less than 2 seconds. Neurological: Mental Status: She is alert. Psychiatric: Mood and Affect: Mood normal. DIAGNOSTIC RESULTS RADIOLOGY (Per Emergency Physician): Interpretation per the Radiologist below, if available at the time of this note: CT orbits/sella wo IV contrast Final Result 1. No facial fracture or retrobulbar hematoma. Report Dictated on Electronically Signed By: Xavier Patel MD Electronically Signed Date/Time: 06/16/2024 3:28 PM EDT LABS: Labs Reviewed - No data to display All other labs were within normal range or not returned as of this dictation. EMERGENCY DEPARTMENT COURSE and DIFFERENTIAL DIAGNOSIS/MDM: Vitals: Vitals: 06/16/24 1400 06/16/24 1401 06/16/24 1544 BP: (!) 170/102 (!) 156/95 BP Location: Right arm Pulse: 86 82 Resp: 16 22 Temp: 36.8 C (98.3 F) TempSrc: Temporal SpO2: (!) 90% 95% Weight: 86.2 kg (190 lb) Height: 1.6 m (5' 3) Medications fluorescein 1 MG ophthalmic strip 1 strip (has no administration in time range) tetracaine (Altacaine) 0.5 % ophthalmic solution 1-2 drop (has no administration in time range) Patient presents with atraumatic right eye pressure x 3 days. States she woke up with this 3 days ago. Denies any visual changes. Visual acuity is 20/80 bilaterally and that is without her correctivelenses. Eye pressures normal bilaterally, see exam above, low suspicion for acute angle closure glaucoma. There is no corneal abrasion or ulcer appreciated. CT orbits was obtained showing no mass or retro-orbital hematoma. There is a noted subconjunctival hemorrhage and conjunctival injection whichmay contribute. No other strokelike symptoms, no visual field deficits appreciated. Will recommend topical antibiotics, follow-up with her eye doctor on Wednesday. Return precautions were described, patient is agreeable. Noted hypertension improved throughout ED visit without intervention, repeat blood pressure 156/95. Vernon Bansal PA-C am the gravel weigher of record. PROCEDURES: Unless otherwise noted below, none Procedures FINAL IMPRESSION 1. Subconjunctival hemorrhage of right eye 2. Acute right eye pain DISPOSITION Discharge 06/16/2024 03:52:39 PM PATIENT REFERRED TO: Your optometist In 3 days DISCHARGE MEDICATIONS: New Prescriptions TRIMETHOPRIM-POLYMYXIN B (POLYTRIM) OPHTHALMIC SOLUTION Administer 1 drop into the right eye in themorning and 1 drop at noon and 1 drop in the evening and 1 drop before bedtime. Do all this for 5 days. (Comment: Please note this report has been produced using speech recognition software and may contain errors related to that system including errors in grammar, punctuation, and spelling, as well as words and phrases that may be inappropriate. If there are any questions or concerns please feel freeto contact the dictating provider for clarification.) Fer Bansal PA-C (electronically signed) Emergency Medicine Provider Fer Bansal PA-C 06/16/24 1555 [id number] NoteHNO ID: [id number] Author: ROSI BURGESS MA Service: ? Author Type: Lens Assorter Type: Progress Notes Filed: 05/15/2024 09:32 Note Text: POPULATION HEALTH NAVIGATION OUTREACH Action/FYI Unable to leave a message. Mailbox is full Sent My Chart message. PCP appt: Wellness due for 2023 HM due: Wellness due for 2023 HCC gaps COLORECTAL SCREENING- FOBT ordered BREAST CANCER SCREENING-Mammogram- already ordered- sent walk in locations via my chart. Flu Reason for Outreach Care Gap/HCC or Scheduling Wellness Visits Care Gaps due: Medicare Annual Wellness Visit Breast Cancer Screening Colorectal Cancer Screening Flu Vaccine Patient Contacted: Unable or unnecessary to reach patient: Left message flaregames message sent HCC related Navigation Signature: Rosi Burgess MA May 15, 2024 9:31 [facility]09-23-2024 History of Present illness Narrative* Rosi Burgess MA - 05/15/2024 9:29 AM EDT POPULATION HEALTH NAVIGATION OUTREACH Action/FYI Unable to leave a message. Mailbox is full Sent My Chart message. PCP appt: Wellness due for 2023 HM due: Wellness due for 2023 HCC gaps COLORECTAL SCREENING- FOBT ordered BREAST CANCER SCREENING-Mammogram- already ordered- sent walk in locations via my chart. Flu Reason for Outreach Care Gap/HCC or Scheduling Wellness Visits Care Gaps due: Medicare Annual Wellness Visit Breast Cancer Screening Colorectal Cancer Screening Flu Vaccine Patient Contacted: Unable or unnecessary to reach patient: Left message flaregames message sent HCC related Navigation Signature: Rosi Burgess MA May 15, 2024 9:31 AM documented in [facility] encounterL[facility] NotePatient Outreach (NETNAV) FRANCIS DIEZ ([id number]) 1965 F Date Time Provider Department 05/15/24 ROSI BURGESS During your visit today, we recorded the following information about you: Rosi Burgess MA 05/15/2024 9:32 AM Signed POPULATION HEALTH NAVIGATION OUTREACH Action/FYI Unable to leave a message. Mailbox is full Sent My Chart message. PCP appt: Wellness due for 2023 due: Wellness due for 2023 HCC gaps COLORECTAL SCREENING- FOBT ordered BREAST CANCER SCREENING-Mammogram- already ordered- sent walk in locations via my chart. Flu Reason for Outreach Care Gap/HCC or Scheduling Wellness Visits Care Gaps due: Medicare Annual Wellness Visit Breast Cancer Screening Colorectal Cancer Screening Flu Vaccine Patient Contacted: Unable or unnecessary to reach patient: Left message Turbo-Trac USAt message sent HCC related Navigation Signature: Rosi Burgess MA May 15, 2024 9:31 AM Allergies As of Date: 05/15/2024 Noted Allergy Reaction BENADRYL (DIPHENHYDRAMINE HCL) 11/13/2014 12 - Shortness of Breath Comments: She is not sure of the reaction. Was given it in the ER years ago. PENICILLINS 09/01/2010 4 - Hives Date Reviewed: 01/05/2024 Reviewed by: Florina Arenas PA-C - Fully Assessed Reason for Visit: Population Health Navigation Outreach [3910] Cmt: UHC, AWV, Care gaps, HCC, Nikolas PCSA Prescriptions as of 05/15/2024 - benzonatate (TESSALON PERLE) 100 mg capsule take 1 capsule by mouth three times daily as needed for cough - albuterol HFA (VENTOLIN HFA) 90 mcg/actuation inhaler Inhale 2 Puffs as instructed every 4 hours as needed for wheezing/shortness of breath. - traZODone (DESYREL) 100 mg tablet TAKE 3 TABLETS EVERY DAY - DULoxetine (CYMBALTA) 30 mg capsule Take 1 capsule by mouth once daily. - montelukast (SINGULAIR) 10 mg tablet Take 1 tablet by mouth once daily. - albuterol (PROVENTIL) 2.5 mg /3 mL (0.083 %) nebulizer solution Use 3 mL via nebulizer every 4 hours as needed for wheezing/shortness of breath. J44.9 - furosemide (LASIX) 40 mg tablet Take 1 tablet by mouth once daily. - rosuvastatin (CRESTOR) 5 mg tablet Take 1 tablet by mouth daily at bedtime. - cholecalciferol (VITAMIN D3) 1,000 unit tab tablet Take 1 tablet by mouth once daily. - qvopduvlhin-rouemhsak-ztoerhgs (TRELEGY ELLIPTA) 100-62.5-25 mcg inhalation powder Inhale 1 Puff as instructed once daily. - cyclobenzaprine (FLEXERIL) 10 mg tablet Take 1 tablet by mouth at bedtime as needed for muscle spasm or pain. - spironolactone (ALDACTONE) 25 mg tablet Take 1 tablet by mouth once daily. - buPROPion XL (WELLBUTRIN XL) 300 mg 24 hr tablet Take 1 tablet by mouth once daily. - ipratropium (ATROVENT) 0.02 % nebulizer solution Use 2.5 mL via nebulizer four times a day as needed. OVER 5-15 MINUTES FOR WHEEZING OR SHORTNESS OF BREATH J44.9 - potassium chloride SR (MICRO-K) 10 mEq CR capsule TAKE 1 CAPSULE BY MOUTH 3 TIMES DAILY - nitroglycerin sublingual (NITROQUICK) 0.4 mg SL tablet Dissolve 1 tablet under the tongue as needed. FOR CHEST PAIN. IF NO RELIEF CALL 911 - COMPOUNDED PRESCRIPTION Oxygen 2L at night and as needed - COMPOUNDED PRESCRIPTION Nebulizer machine DX: 496/143.90 Problem List As Of Date 05/15/2024 Noted Resolved COPD with chronic bronchitis (HCC) [J44.89] 07/08/2005 Essential hypertension [I10] 07/08/2005 Unspecified asthma(493.90) [J45.909] 07/08/2005 11/26/2014 HYPOPOTASSEMIA [E87.6] 07/09/2005 Major depressive disorder [F32.9] 07/09/2005 Palpitations [R00.2] 04/22/2006 10/26/2014 INSOMNIA NOS [G47.00] 05/24/2006 VENOUS INSUFFICIENCY NOS [I87.2] 05/24/2006 BRONCHIECTASIS W/O ACUTE EXACERBATN [J47.9] 10/04/2008 Impaired fasting glucose [R73.01] 12/05/2010 Cholecystitis with cholelithiasis [K80.10] 04/08/2013 10/26/2014 Tobacco use [Z72.0] 10/26/2014 Nocturnal oxygen desaturation [G47.34] 10/26/2014 Family history of colon cancer [Z80.0] 11/09/2014 Primary insomnia [F51.01] 11/26/2015 Anxiety [F41.9] 02/10/2018 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 Chest pain [R07.9] 12/01/2021 Mixed hyperlipidemia [E78.2] 09/20/2023 Class 2 severe obesity due to excess calories w*09/24/2023 Obesity, Class I, BMI 30-34.9 [E66.9] 10/19/2023 Encounter Status:Closed by ROSI BURGESS on 05/15/24[facility] 02-14-2024 Telephone encounter Note* Telephone Encounter - Estrella Hill LPN - 02/14/2024 10:23 AM EDT [facility] 01/05/24 Patient phones requesting refills as follows: Requested Prescriptions Pending Prescriptions Disp Refills albuterol HFA (VENTOLIN HFA) 90 mcg/actuation inhaler 54 g 3 Sig: Inhale 2 Puffs as instructed every 4 hours as needed for wheezing/shortness of breath. Please review and advise. Estrella Hill LPN [facility]06-24-2024 Miscellaneous Notes* Telephone Encounter - Estrella Hill LPN - 02/14/2024 10:23 AM EDT [facility] 01/05/24 Patient phones requesting refills as follows: Requested Prescriptions Pending Prescriptions Disp Refills albuterol HFA (VENTOLIN HFA) 90 mcg/actuation inhaler 54 g 3 Sig: Inhale 2 Puffs as instructed every 4 hours as needed for wheezing/shortness of breath. Please review and advise. Estrella Hill LPN documented in this encounterL[facility]06-[facility] Telephone encounter Note * Telephone Encounter - Jimi Mercado LPN - 02/14/2024 7:34 AM EDT Patient Cloud Floorhart message requesting the following refill Refill(s) Requested: Requested Prescriptions Pending Prescriptions Disp Refills traZODone (DESYREL) 100 mg tablet 270 tablet 3 Sig: TAKE 3 TABLETS EVERY DAY ALLERGIES Allergen Reactions Benadryl [Diphenhyd* Shortness of Breath She is not sure of the reaction. Was given it in the ER years ago. Anjel Wilhelm (home) [phone] (cell) Last Office Visit Date: 10/19/2023 Last [facility] Health Visit: Visit date not found Future Appointment: 03/15/2024 The patients preferred pharmacy has been captured for this encounter? yes Request is for script(s) to be escript to pharmacy. Jimi Mercado LPN [facility]06-24-2024 Miscellaneous Notes* Telephone Encounter - Jimi Mercado LPN - 02/14/2024 7:34 AM EDT Patient MyChart message requesting the following refill Refill(s) Requested: Requested Prescriptions Pending Prescriptions Disp Refills traZODone (DESYREL) 100 mg tablet 270 tablet 3 Sig: TAKE 3 TABLETS EVERY DAY ALLERGIES Allergen Reactions Benadryl [Diphenhyd* Shortness of Breath She is not sure of the reaction. Was given it in the ER years ago. Anjel Wilhelm (home) [phone] (cell) Last Office Visit Date: 10/19/2023 Last [facility] Visit: Visit date not found Future Appointment: 03/15/2024 The patients preferred pharmacy has been captured for this encounter? yes Request is for script(s) to be escript to pharmacy. Jimi Mercado LPN documented in this encounterL[facility]06-[facility] Telephone encounter Note * Telephone Encounter - Javier Truong APRN.CNS - 01/31/2024 3:41 PM EDT ok [facility]06-10-2024 Miscellaneous Notes* Telephone Encounter - Javier Truong APRN.CNS - 01/31/2024 3:41 PM EDT ok * Telephone Encounter - Nimco Louis RN - 01/31/2024 1:48 PM EDT Prescription Refill Information The patient has been identified by name and date of : Yes Caregiver verified no other encounters exist for this prescription request: Yes Caregiver confirmed with patient/requestor that no other refills are due, in the near future, with this provider at this time: Yes The last office visit in the department: 10/19/23 Does the patient have a future office visit with this provider/department: Yes Requested Prescriptions Pending Prescriptions Disp Refills LORazepam (ATIVAN) 0.5 mg 15 tablet 0 Sig: Take 1 tablet by mouth once daily as needed for up to 30 days. DULoxetine (CYMBALTA) 30 mg capsule 30 capsule 2 Sig: Take 1 capsule by mouth once daily. Nimco Louis RN January 31, 2024 1:49 PM documented in this encounterLake [facility]06-10-2024 Telephone encounter Note * Telephone Encounter - Nimco Louis RN - 01/31/2024 1:48 PM EDT Prescription Refill Information The patient has been identified by name and date of : Yes Caregiver verified no other encounters exist for this prescription request: Yes Caregiver confirmed with patient/requestor that no other refills are due, in the near future, with this provider at this time: Yes The last office visit in the department: 10/19/23 Does the patient have a future office visit with this provider/department: Yes Requested Prescriptions Pending Prescriptions Disp Refills LORazepam (ATIVAN) 0.5 mg 15 tablet 0 Sig: Take 1 tablet by mouth once daily as needed for up to 30 days. DULoxetine (CYMBALTA) 30 mg capsule 30 capsule 2 Sig: Take 1 capsule by mouth once daily. Nimco Louis RN January 31, 2024 1:49 PM [facility]05-29-2024 NotePatient Outreach (INTMMN) FRANCIS DIEZ ([id number]) 1965 F Date Time Provider Department 01/19/24 MARILUZ [facility] INTMMN During your visit today, we recorded the following information about you: Allergies As of Date: 01/19/2024 Noted Allergy Reaction BENADRYL (DIPHENHYDRAMINE HCL) 11/13/2014 12 - Shortness of Breath Comments: She is not sure of the reaction. Was given it in the ER years ago. PENICILLINS 09/01/2010 4 - Hives Date Reviewed: 01/05/2024 Reviewed by: Florina Arenas PA-C - Fully Assessed Visit Diagnosis:Encounter for screening mammogram for breast cancer [Z12.31] Order(s):[facility] SCREENING [[id number]] Order #: [id number] FUTURE Prescriptions as of 01/24/2024 - benzonatate (TESSALON PERLES) 100 mg capsule Take 1 capsule by mouth three times a day as needed for cough. FOR COUGHING. - montelukast (SINGULAIR) 10 mg tablet Take 1 tablet by mouth once daily. - albuterol HFA (VENTOLIN HFA) 90 mcg/actuation inhaler Inhale 2 Puffs as instructed every 4 hours as needed for wheezing/shortness of breath. - albuterol (PROVENTIL) 2.5 mg /3 mL (0.083 %) nebulizer solution Use 3 mL via nebulizer every 4 hours as needed for wheezing/shortness of breath. J44.9 - furosemide (LASIX) 40 mg tablet Take 1 tablet by mouth once daily. - rosuvastatin (CRESTOR) 5 mg tablet Take 1 tablet by mouth daily at bedtime. - cholecalciferol (VITAMIN D3) 1,000 unit tab tablet Take 1 tablet by mouth once daily. - khdwkonvdao-fitihfnkj-dukbhnwx (TRELEGY ELLIPTA) 100-62.5-25 mcg inhalation powder Inhale 1 Puff as instructed once daily. - DULoxetine (CYMBALTA) 30 mg capsule Take 1 capsule by mouth once daily. - cyclobenzaprine (FLEXERIL) 10 mg tablet Take 1 tablet by mouth at bedtime as needed for muscle spasm or pain. - spironolactone (ALDACTONE) 25 mg tablet Take 1 tablet by mouth once daily. - buPROPion XL (WELLBUTRIN XL) 300 mg 24 hr tablet Take 1 tablet by mouth once daily. - ipratropium (ATROVENT) 0.02 % nebulizer solution Use 2.5 mL via nebulizer four times a day as needed. OVER 5-15 MINUTES FOR WHEEZING OR SHORTNESS OF BREATH J44.9 - potassium chloride SR (MICRO-K) 10 mEq CR capsule TAKE 1 CAPSULE BY MOUTH 3 TIMES DAILY - traZODone (DESYREL) 100 mg tablet TAKE 3 TABLETS EVERY DAY - nitroglycerin sublingual (NITROQUICK) 0.4 mg SL tablet Dissolve 1 tablet under the tongue as needed. FOR CHEST PAIN. IF NO RELIEF CALL 911 - COMPOUNDED PRESCRIPTION Oxygen 2L at night and as needed - COMPOUNDED PRESCRIPTION Nebulizer machine DX: 496/143.90 Facility-Administered Medications as of 01/24/2024 - perflutren lipid microspheres 1.3 mL in NaCl (PF) 0.9% 10 mL injection (DEFINITY) - sodium chloride 0.9 % (flush) 10 mL (BD POSIFLUSH) Problem List As Of Date 01/19/2024 Noted Resolved COPD with chronic bronchitis (HCC) [J44.89] 07/08/2005 Essential hypertension [I10] 07/08/2005 Unspecified asthma(493.90) [J45.909] 07/08/2005 11/26/2014 HYPOPOTASSEMIA [E87.6] 07/09/2005 Major depressive disorder [F32.9] 07/09/2005 Palpitations [R00.2] 04/22/2006 10/26/2014 INSOMNIA NOS [G47.00] 05/24/2006 VENOUS INSUFFICIENCY NOS [I87.2] 05/24/2006 BRONCHIECTASIS W/O ACUTE EXACERBATN [J47.9] 10/04/2008 Impaired fasting glucose [R73.01] 12/05/2010 Cholecystitis with cholelithiasis [K80.10] 04/08/2013 10/26/2014 Tobacco use [Z72.0] 10/26/2014 Nocturnal oxygen desaturation [G47.34] 10/26/2014 Family history of colon cancer [Z80.0] 11/09/2014 Primary insomnia [F51.01] 11/26/2015 Anxiety [F41.9] 02/10/2018 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 FALL SCREENING: Has the patient had 2 falls in the last year or 1 fall with injury or currently using an Ambulatory Assistive Device (Walker, Cane, Wheelchair, Crutches, etc.)? No PATIENT GENDER DATA: Female. status: : No status: NO. PATIENT RELEVANT IMPLANT DATA REVIEWED: Not Applicable PATIENT PRESENTS WITH AN IMPLANTABLE OR ATTACHED SAFETY COORDINATOR: No RADIOLOGY DEPARTMENT: General X-ray: Exam(s) Completed: Chest X-Ray PERIPHERAL IV DATA: Not applicable SIGNED BY: RT Ky(Tyesha) January 05, 2024 12:21 PM documented in this encounterLake [facility]05-15-2024 NoteHNO ID: [id number] Author: WENDY VAZQUEZ RT(R) Service: ? Author Type: Technologist Type: Progress Notes Filed: 01/05/2024 12:21 Note Text: Radiology Service Progress Note PATIENT NAME: Francis Diez DATE OF SERVICE: January 05, 2024 TIME: 12:21 PM PATIENT IDENTITY VERIFICATION COMPLETED USING TWO (2) IDENTIFIERS: Name and Date of confirmed by patient verbally. FALL SCREENING: Has the patient had 2 falls in the last year or 1 fall with injury or currently using an Ambulatory Assistive Device (Walker, Cane, Wheelchair, Crutches, etc.)? No PATIENT GENDER DATA: Female. status: : No status: NO. PATIENT RELEVANT IMPLANT DATA REVIEWED: Not Applicable PATIENT PRESENTS WITH AN IMPLANTABLE OR ATTACHED SAFETY COORDINATOR: No RADIOLOGY DEPARTMENT: General X-ray: Exam(s) Completed: Chest X-Ray PERIPHERAL IV DATA: Not applicable SIGNED BY: RT Ky(Tyesha) January 05, 2024 12:21 [facility]05-15-2024 Nurse Note* Estrella Hill LPN - 01/05/2024 11:21 AM EDT Intake information documented in the prior visit with PARISH Stack today. [facility]05-[facility] Nurse Note* Estrella Hill LPN - 01/05/2024 11:21 AM EDT Intake information documented in the prior visit with PARISH Stack today. documented in this [facility] NoteHNO ID: [id number] Author: FLORINA ARENAS PA-C Service: ? Author Type: Physician Aerial Erector Type: Progress Notes Filed: 01/05/2024 12:24 Note Text: Patient: Francis Diez PCP: Mariluz High MD CC: follow up HPI: Francis Diez 58 year old female current smoker, 84 pack years with PMH significant for bronchiectasis s/p LLL resection for infection in 1992, left diaphragmatic dysfunction, chronic asthmatic bronchitis, COPD and HTN. Current therapy with Symbicort and Albuterol as needed. Today, patient states she started with increased wheezing. She attributed to seasonal allergies. She is feeling more SOB. Getting SOB walking from room to room. Daily cough primarily in the morning and at nighttime. Clear sputum, no hemoptysis. No fevers, chills or night sweats. No unintended weight loss. Occasional lower extremity edema. No heartburn/GERD. Currently not smoking daily. When she does smoke she will go through 1 pack in 2 days. Currently wearing supplemental oxygen as needed and at night. DME: [employer] PAST MEDICAL HISTORY Diagnosis Date Allergies ASTHMA UNSPECIFIED 07/08/2005 Bronchiectasis (HCC) CHRONIC AIRWAY OBSTRUCTION NEC 07/08/2005 Depression Diaphragm dysfunction HYPERTENSION NOS 07/08/2005 Allergies: Benadryl [Diphenhyd* Shortness of Breath Comment:She is not sure of the reaction. Was given it in the ER years ago. Penicillins Hives albuterol HFA (VENTOLIN HFA) 90 mcg/actuation inhalerInhale 2 Puffs as instructed every 4 hours as needed for wheezing/shortness of breath.Disp: 54 gRfl: 3 albuterol (PROVENTIL) 2.5 mg /3 mL (0.083 %) nebulizer solutionUse 3 mL via nebulizer every 4 hours as needed for wheezing/shortness of breath. J44.9Disp: 3 mLRfl: 5 furosemide (LASIX) 40 mg tabletTake 1 tablet by mouth once daily.Disp: 90 tabletRfl: 3 rosuvastatin (CRESTOR) 5 mg tabletTake 1 tablet by mouth daily at bedtime.Disp: 90 tabletRfl: 3 cholecalciferol (VITAMIN D3) 1,000 unit tab tabletTake 1 tablet by mouth once daily.Disp: 90 tabletRfl: 3 cdoysvvyjby-icebdwidw-sztnhtso (TRELEGY ELLIPTA) 100-62.5-25 mcg inhalation powderInhale 1 Puff as instructed once daily.Disp: 1 EachRfl: 11 DULoxetine (CYMBALTA) 30 mg capsuleTake 1 capsule by mouth once daily.Disp: 30 capsuleRfl: 2 cyclobenzaprine (FLEXERIL) 10 mg tabletTake 1 tablet by mouth at bedtime as needed for muscle spasm or pain.Disp: 30 tabletRfl: 0 spironolactone (ALDACTONE) 25 mg tabletTake 1 tablet by mouth once daily.Disp: 90 tabletRfl: 1 buPROPion XL (WELLBUTRIN XL) 300 mg 24 hr tabletTake 1 tablet by mouth once daily.Disp: 90 tabletRfl: 3 ipratropium (ATROVENT) 0.02 % nebulizer solutionUse 2.5 mL via nebulizer four times a day as needed. OVER 5-15 MINUTES FOR WHEEZING OR SHORTNESS OF BREATH J44.9Disp: 2.5 mLRfl: 5 potassium chloride SR (MICRO-K) 10 mEq CR capsuleTAKE 1 CAPSULE BY MOUTH 3 TIMES DAILYDisp: 270 capsuleRfl: 3 insulin needles, DISPOSABLE, (PEN NEEDLE) 31 gauge x 5/16Use one needle per dose. 1 per day.Disp: 100 EachRfl: 11 traZODone (DESYREL) 100 mg tabletTAKE 3 TABLETS EVERY DAYDisp: 270 tabletRfl: 3 fluticasone (FLONASE) 50 mcg/actuation nasal sprayUse 2 Sprays in each nostril once daily. ADMINISTER 2 SPRAYS EACH NOSTRIL DAILY, RINSE MOUTH OUT AFTER USE.Disp: 3 EachRfl: 3 nitroglycerin sublingual (NITROQUICK) 0.4 mg SL tabletDissolve 1 tablet under the tongue as needed. FOR CHEST PAIN. IF NO RELIEF CALL 911Disp: 25 tabletRfl: 0 COMPOUNDED PRESCRIPTIONOxygen 2L at night and as neededDisp: Rfl: 11 COMPOUNDED PRESCRIPTIONNebulizer machine DX: 496/143.90Disp: 1Rfl: 0 Social History Tobacco Use Smoking status: Every Day Packs/day: 2.00 Years: 42.00 Additional pack years: 0.00 Total pack years: 84.00 Types: Cigarettes Start date: 1982 Smokeless tobacco: Never Tobacco comments: Did not smoke during pregnancies. Former 2 ppd smoker. Less than 1/2ppd 12/22/2022 Vaping Use Vaping Use: Never used Substance Use Topics Alcohol use: No Drug use: No Family History Problem Relation Age of Onset other (Lung cancer [Other]) Mother Asthma Mother Diabetes Father Dialysis Father other (Myocardial infarction) Sister Colon Cancer Sister Colon Cancer Brother 2 brothers. other (Myocardial infarction) Brother PAST SURGICAL HISTORY Procedure Laterality Date LAPS SURG CHOLECYSTECTOMY W/CHOLANGIOGRAPHY 04-21-13 [facility] [address] Guillen RMVL LUNG OTHER THAN PNEUMONECTOMY 1 LOBE LOBECT 1992 Left - bronchiectasis TOTAL ABDOMINAL HYSTERECT W/WO RMVL TUBE OVARY Hysterectomy, CARMENCITA I reviewed the past medical history, family history, social history and surgical history with changes noted above and updated in EMR. IMMUNIZATIONS Prevnar - 12/15/2006 Pneumovax - 10/26/2014 Influenza - 06/16/2022 COVID-19 - xx ROS: All other systems reviewed as negative except for what is noted in HPI and review of systems. PHYSICAL EXAMINATION: BP 136 (more content not included)...[facility]05-15-2024 Note HNO ID: [id number] Author: THIERNO CARLSON RPFT Service: ? Author Type: Respiratory Therapist Type: Progress Notes Filed: 01/05/2024 11:34 Note Text: PULM FUNCTION SMARTBLOCK: Provider: Florina Arenas PA-C Assisting Tech: Thierno Carlson RPFT [facility] of Present illness Narrative* Thierno Carlson RPFT - 01/05/2024 10:57 AM EDT PULM FUNCTION SMARTBLOCK: Provider: Florina Arenas PA-C Assisting Tech: Thierno Carlson RPFT Spirometry w/BD: 1 documented in this encounterL[facility] History of Present illness Narrative* Florina Arenas PA-C - 01/05/2024 10:57 AM EDT Images from the original note were not included. Patient: Francis Diez PCP: Mariluz High MD CC: follow up HPI: Francis Diez 58 year old female current smoker, 84 pack years with PMH significant for bronchiectasis s/p LLL resection for infection in 1992, left diaphragmatic dysfunction, chronic asthmatic bronchitis, COPD and HTN. Current therapy with Symbicort and Albuterol as needed. Today, patient states she started with increased wheezing. She attributed to seasonal allergies. She is feeling more SOB. Getting SOB walking from room to room. Daily cough primarily in the morning and at nighttime. Clear sputum, no hemoptysis. No fevers, chills or night sweats. No unintended weight loss. Occasional lower extremity edema. No heartburn/GERD. Currently not smoking daily. When she does smoke she will go through 1 pack in 2 days. Currently wearing supplemental oxygen as needed and at night. DME: [employer] PAST MEDICAL HISTORY Diagnosis Date Allergies ASTHMA UNSPECIFIED 07/08/2005 Bronchiectasis (HCC) CHRONIC AIRWAY OBSTRUCTION NEC 07/08/2005 Depression Diaphragm dysfunction HYPERTENSION NOS 07/08/2005 Allergies: Benadryl [Diphenhyd* Shortness of Breath Comment:She is not sure of the reaction. Was given it in the ER years ago. Penicillins Hives albuterol HFA (VENTOLIN HFA) 90 mcg/actuation inhaler^Inhale 2 Puffs as instructed every 4 hours asneeded for wheezing/shortness of breath.^Disp: 54 g^Rfl: 3 albuterol (PROVENTIL) 2.5 mg /3 mL (0.083 %) nebulizer solution^Use 3 mL via nebulizer every 4 hours as needed for wheezing/shortness of breath. J44.9^Disp: 3 mL^Rfl: 5 furosemide (LASIX) 40 mg tablet^Take 1 tablet by mouth once daily.^Disp: 90 tablet^Rfl: 3 rosuvastatin (CRESTOR) 5 mg tablet^Take 1 tablet by mouth daily at bedtime.^Disp: 90 tablet^Rfl: 3 cholecalciferol (VITAMIN D3) 1,000 unit tab tablet^Take 1 tablet by mouth once daily.^Disp: 90 tablet^Rfl: 3 qjynxtrnumn-hobjgdpvj-zygxgbmd (TRELEGY ELLIPTA) 100-62.5-25 mcg inhalation powder^Inhale 1 Puff asinstructed once daily.^Disp: 1 Each^Rfl: 11 DULoxetine (CYMBALTA) 30 mg capsule^Take 1 capsule by mouth once daily.^Disp: 30 capsule^Rfl: 2 cyclobenzaprine (FLEXERIL) 10 mg tablet^Take 1 tablet by mouth at bedtime as needed for muscle spasm or pain.^Disp: 30 tablet^Rfl: 0 spironolactone (ALDACTONE) 25 mg tablet^Take 1 tablet by mouth once daily.^Disp: 90 tablet^Rfl: 1 buPROPion XL (WELLBUTRIN XL) 300 mg 24 hr tablet^Take 1 tablet by mouth once daily.^Disp: 90 tablet^Rfl: 3 ipratropium (ATROVENT) 0.02 % nebulizer solution^Use 2.5 mL via nebulizer four times a day as needed. OVER 5-15 MINUTES FOR WHEEZING OR SHORTNESS OF BREATH J44.9^Disp: 2.5 mL^Rfl: 5 potassium chloride SR (MICRO-K) 10 mEq CR capsule^TAKE 1 CAPSULE BY MOUTH 3 TIMES DAILY^Disp: 270 capsule^Rfl: 3 insulin needles, DISPOSABLE, (PEN NEEDLE) 31 gauge x 01/05^Use one needle per dose. 1 per day.^Disp: 100 Each^Rfl: 11 traZODone (DESYREL) 100 mg tablet^TAKE 3 TABLETS EVERY DAY^Disp: 270 tablet^Rfl: 3 fluticasone (FLONASE) 50 mcg/actuation nasal spray^Use 2 Sprays in each nostril once daily. ADMINISTER 2 SPRAYS EACH NOSTRIL DAILY, RINSE MOUTH OUT AFTER USE.^Disp: 3 Each^Rfl: 3 nitroglycerin sublingual (NITROQUICK) 0.4 mg SL tablet^Dissolve 1 tablet under the tongue as needed. FOR CHEST PAIN. IF NO RELIEF CALL 911^Disp: 25 tablet^Rfl: 0 COMPOUNDED PRESCRIPTION^Oxygen 2L at night and as needed^Disp: ^Rfl: 11 COMPOUNDED PRESCRIPTION^Nebulizer machine DX: 496/143.90^Disp: 1^Rfl: 0 Social History Tobacco Use Smoking status: Every Day Packs/day: 2.00 Years: 42.00 Additional pack years: 0.00 Total pack years: 84.00 Types: Cigarettes Start date: 1982 Smokeless tobacco: Never Tobacco comments: Did not smoke during pregnancies. Former 2 ppd smoker. Less than 1/2ppd 12/22/2022 Vaping Use Vaping Use: Never used Substance Use Topics Alcohol use: No Drug use: No Family History Problem Relation Age of Onset other (Lung cancer [Other]) Mother Asthma Mother Diabetes Father Dialysis Father other (Myocardial infarction) Sister Colon Cancer Sister Colon Cancer Brother 2 brothers. other (Myocardial infarction) Brother PAST SURGICAL HISTORY Procedure Laterality Date LAPS SURG CHOLECYSTECTOMY W/CHOLANGIOGRAPHY 04-21-[address] [facility] [address] Guillen RMVL LUNG OTHER THAN PNEUMONECTOMY 1 LOBE LOBECT 1992 Left - bronchiectasis TOTAL ABDOMINAL HYSTERECT W/WO RMVL TUBE OVARY Hysterectomy, CARMENCITA I reviewed the past medical history, family history, social history and surgical history with changes noted above and updated in EMR. IMMUNIZATIONS Prevnar - 12/15/2006 Pneumovax - 10/26/2014 Influenza - 06/16/2022 COVID-19 - xx ROS: All other systems reviewed as negative except for what is noted in HPI and review of systems. PHYSICAL EXAMINATION: BP 136/82 Pulse 82 Resp 14 Ht 157.5 cm (5' 2) Wt 85.7 kg (189 lb) SpO2 91% BMI 34.57 kg/m Gen: No acute distress. Cooperative with examination. HEENT: Normocephalic. Sclera, conjunctiva clear. Oral hygeine and dentition poor. Oral thrush. Resp: No stridor, accessory respiratory muscle use, supra-sternal or intercostal retractions. Diffuse wheezes with decreased air movement. No crackles or rhonchi CV: Regular rythm. Heart tones normal. Radial pulses normal. Ext: Warm and well perfused. No clubbing, cyanosis, edema. Skin: No rash, ecchymoses. Neuro: Mental status normal. Affect normal. No tremor. DATA: Oximetry, 11/09/2023 Oximetry with Ambulation Test for This Encounter O2 Device O2 Adapter NC O2 Flow SpO2% HR Activity Ft Walked (ft) Time (min) Avg Speed (MPH) R/A 92 63 Resting R/A 89 83 Walking, usual pace 400 3 1.52 R/A 87 105 Walking, fastest pace 500 2.9 1.96 NC 2 95 60 Resting NC 2 93 89 Walking, fastest pace 530 3 2.01 PFT, 01/05/2024 PFT, 11/25/2021 IMPRESSION: Spirometry shows no obstruction.The reduced FVC suggests restriction. Recommend lung volumes if clinically indicated. Electronically Signed On 11-25-2021 16:15:22 EDT by Penny Garner M.D. Exhaled nitric oxide (Dorie), 11/25/2021: 5 (normal < 20). Component Latest Ref Rng & Units 11/25/2021 09/02/2023 Abs Eosin <0.46 k/uL 0.71 (H) 0.49 IgE <114.0 kU/l 30.7 CXR, 10/14/2023 IMPRESSION: Overall findings unchanged. COMPARISON: Chest x-ray on 09/03/2023 RESULT: Lines, tubes, and devices: None. Lungs and pleura: There are postoperative changes in the left lung, with significant elevation of the left hemidiaphragm. Associated pulmonary infiltrates versus atelectasis seen in the left lung. No new consolidations visualized. No visible masses. No pleural effusions or pneumothorax. Cardiomediastinal silhouette: Difficult to evaluate cardiomediastinal silhouette however grossly unchanged. Bones and soft tissues: There are degenerative changes in the spine. CXR, 09/03/2023 IMPRESSION: Mild patchy airspace opacities right lower lung may represent atelectasis or developing infiltrates. Recommend follow-up. COMPARISON: 12/10/2022 RESULT: Lines, tubes, and devices: None. Lungs and pleura: Postsurgical changes with moderate elevation of the left hemidiaphragm, redemonstrated. Patchy airspace opacities right lower lung. No pleural effusion or pneumothorax. Cardiomediastinal silhouette: Stable cardiomediastinal silhouette. Bones and soft tissues: Degenerative changes are present within the thoracic spine. CT chest, 12/05/2021 IMPRESSION: 1. No acute chest pathology 2. Unchanged elevation of the left hemidiaphragm 3. Again noted is scarring or atelectasis in the medial right middle lobe and right lower lobe Comparison: CT chest 12/03/2014 RESULT: Limitations: None. Lines, tubes, and devices: None. Lung parenchyma and airways: Elevation of the left hemidiaphragm. Linear areas of scarring or atelectasis in the medial right middle lobe and right lower lobe. No consolidation. Stable 4 mm nodule posterior left lower lobe (6:67). No new suspicious pulmonary nodule. The central airways are patent. Pleural space: No pleural effusion. No pleural thickening. Lower neck, lymph nodes, and mediastinum: The imaged thyroid gland is normal. No lymphadenopathy in the supraclavicular, axillary, mediastinal, or hilar regions. Heart, pericardium, and thoracic vessels: The thoracic aorta and main pulmonary artery are normal in caliber. The cardiac chambers are normal in size. No coronary artery atherosclerotic calcifications are noted, although the study is not optimized for coronary assessment. No pericardial effusion or thickening. Bones and soft tissues: No destructive bone lesion. Degenerative disease of the thoracic spine. Chest wall is unremarkable. Upper abdomen: No acute abnormality in the imaged upper abdomen. Residence Manager (topogram) images: No additional findings. ASSESSMENT/PLAN: 1. Asthma with COPD with exacerbation (HCC) (HCC) - ICD9: 493.22, ICD10: J44.1, J45.901 (primary diagnosis) Prednisone burst as directed. CXR today. Further recommendations to follow. Will make decision on antibiotics following CXR. Continue triple therapy Trelegy with as needed Albuterol. Previously on Singulair and not clear why she discontinued. Denied side effects. Will restart Singulair. Smoking cessation is critical. - XR CHEST 2V FRONTAL/LAT - PREDNISONE 20 MG TABLET 2. Dyspnea and respiratory abnormalities - ICD9: 786.09, ICD10: R06.00, R06.89 See #1. - XR CHEST 2V FRONTAL/LAT - PREDNISONE 20 MG TABLET 3. Wheezing - ICD9: 786.07, ICD10: R06.2 See #1. - XR CHEST 2V FRONTAL/LAT - PREDNISONE 20 MG TABLET 4. Cough, unspecified type - ICD9: 786.2, ICD10: R05.9 Tessalon perles for nighttime use and as needed during the day. - BENZONATATE 100 MG CAPSULE 5. Tobacco use current - ICD9: 305.1, ICD10: Z72.0 Cessation encouraged. Physiologic and physical aspects of tobacco addiction as well as strategies for quitting were discussed. Counseling was given focusing on the harmful effects of this addiction especially given the patient's medical condition(s) which will be worsened because of the chemicals in tobacco. 6. Allergic rhinitis, unspecified seasonality, unspecified trigger - ICD9: 477.9, ICD10: J30.9 See #1 7. Eosinophilia, unspecified type - ICD9: 288.3, ICD10: D72.10 See #1 8. Dependence on nocturnal oxygen therapy - ICD9: V46.2, ICD10: Z99.81 Patient is compliant and benefits from supplemental oxygen. Portions of this documentation were copied and pasted from previous office visit notes in order to provide a cohesive continuity of the history. The note has been reviewed and edited and updated as necessary. Florina Arenas PA-C documented in this encounterLake [facility]-09-[facility]24 NoteHNO ID: [id number] Author: TIKI SPARKS PSS Service: ? Author Type: Patient Senior Consumer Insights Consultant Type: Progress Notes Filed: 01/31/2024 03:04 Note Text: Spoke to patient. She refused to schedule appointment.[facility] 12-30-2023 History of Present illness Narrative* Tiki Sparks PSS - 12/30/2023 11:56 AM EDT Spoke to patient. She refused to schedule appointment. * Yelitza Costa RN - 12/29/2023 9:45 AM EDT COLONOSCOPY PATIENT OUTREACH Action/FYI Colonoscopy Recall Patient identified by Name and : Yes. --- OUTREACH OUTCOME ACTION: Consult- Telephone Call- Pt is overdue for screening colonoscopy. Pt needs consult due to medical history and/or medications. Please call patient and schedule appointment with General Surgery Provider. Yelitza Costa RN documented in this encounterLake [facility]-08-2024 NoteHNO ID: [id number] Author: YELITZA COSTA, RN Service: ? Author Type: Registered Nurse Type: Progress Notes Filed: 01/31/2024 03:04 Note Text: COLONOSCOPY PATIENT OUTREACH Action/ Colonoscopy Recall Patient identified by Name and : Yes. --- OUTREACH OUTCOME ACTION: Consult- Telephone Call- Pt is overdue for screening colonoscopy. Pt needs consult due to medical history and/or medications. Please call patient and schedule appointment with General Surgery Provider. Yelitza Costa [facility]NC[facility]05-[facility]-2024 NotePatient Outreach (ASWSTR) FRANCIS DIEZ ([id number]) 1965 F Date Time Provider Department 12/29/23 MARILUZ HIGH During your visit today, we recorded the following information about you: Yelitza Costa RN 01/31/2024 3:04 AM Signed COLONOSCOPY PATIENT OUTREACH Action/ Colonoscopy Recall Patient identified by Name and : Yes. ---- OUTREACH OUTCOME ACTION: Consult- Telephone Call- Pt is overdue for screening colonoscopy. Pt needs consult due to medical history and/or medications. Please call patient and schedule appointment with General Surgery Provider. Yelitza Costa, Tiki Hernandez [facility] 01/31/2024 3:04 AM Signed Spoke to patient. She refused to schedule appointment. Allergies As of Date: 12/29/2023 Noted Allergy Reaction BENADRYL (DIPHENHYDRAMINE HCL) 11/13/2014 12 - Shortness of Breath Comments: She is not sure of the reaction. Was given it in the ER years ago. PENICILLINS 09/01/2010 4 - Hives Date Reviewed: 11/09/2023 Reviewed by: Florina Arenas PA-C - Fully Assessed Prescriptions as of 01/31/2024 - benzonatate (TESSALON PERLES) 100 mg capsule Take 1 capsule by mouth three times a day as needed for cough. FOR COUGHING. - montelukast (SINGULAIR) 10 mg tablet Take 1 tablet by mouth once daily. - albuterol HFA (VENTOLIN HFA) 90 mcg/actuation inhaler Inhale 2 Puffs as instructed every 4 hours as needed for wheezing/shortness of breath. - albuterol (PROVENTIL) 2.5 mg /3 mL (0.083 %) nebulizer solution Use 3 mL via nebulizer every 4 hours as needed for wheezing/shortness of breath. J44.9 - furosemide (LASIX) 40 mg tablet Take 1 tablet by mouth once daily. - rosuvastatin (CRESTOR) 5 mg tablet Take 1 tablet by mouth daily at bedtime. - cholecalciferol (VITAMIN D3) 1,000 unit tab tablet Take 1 tablet by mouth once daily. - yllpqyizzxz-uprevyjur-wpmziuss (TRELEGY ELLIPTA) 100-62.5-25 mcg inhalation powder Inhale 1 Puff as instructed once daily. - DULoxetine (CYMBALTA) 30 mg capsule Take 1 capsule by mouth once daily. - cyclobenzaprine (FLEXERIL) 10 mg tablet Take 1 tablet by mouth at bedtime as needed for muscle spasm or pain. - spironolactone (ALDACTONE) 25 mg tablet Take 1 tablet by mouth once daily. - buPROPion XL (WELLBUTRIN XL) 300 mg 24 hr tablet Take 1 tablet by mouth once daily. - ipratropium (ATROVENT) 0.02 % nebulizer solution Use 2.5 mL via nebulizer four times a day as needed. OVER 5-15 MINUTES FOR WHEEZING OR SHORTNESS OF BREATH J44.9 - potassium chloride SR (MICRO-K) 10 mEq CR capsule TAKE 1 CAPSULE BY MOUTH 3 TIMES DAILY - traZODone (DESYREL) 100 mg tablet TAKE 3 TABLETS EVERY DAY - nitroglycerin sublingual (NITROQUICK) 0.4 mg SL tablet Dissolve 1 tablet under the tongue as needed. FOR CHEST PAIN. IF NO RELIEF CALL 911 - COMPOUNDED PRESCRIPTION Oxygen 2L at night and as needed - COMPOUNDED PRESCRIPTION Nebulizer machine DX: 496/143.90 Facility-Administered Medications as of 01/31/2024 - perflutren lipid microspheres 1.3 mL in NaCl (PF) 0.9% 10 mL injection (DEFINITY) - sodium chloride 0.9 % (flush) 10 mL (BD POSIFLUSH) Problem List As Of Date 12/29/2023 Noted Resolved COPD with chronic bronchitis (HCC) [J44.89] 07/08/2005 Essential hypertension [I10] 07/08/2005 Unspecified asthma(493.90) [J45.909] 07/08/2005 11/26/2014 HYPOPOTASSEMIA [E87.6] 07/09/2005 Major depressive disorder [F32.9] 07/09/2005 Palpitations [R00.2] 04/22/2006 10/26/2014 INSOMNIA NOS [G47.00] 05/24/2006 VENOUS INSUFFICIENCY NOS [I87.2] 05/24/2006 BRONCHIECTASIS W/O ACUTE EXACERBATN [J47.9] 10/04/2008 Impaired fasting glucose [R73.01] 12/05/2010 Cholecystitis with cholelithiasis [K80.10] 04/08/2013 10/26/2014 Tobacco use [Z72.0] 10/26/2014 Nocturnal oxygen desaturation [G47.34] 10/26/2014 Family history of colon cancer [Z80.0] 11/09/2014 Primary insomnia [F51.01] 11/26/2015 Anxiety [F41.9] 02/10/2018 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 Chest pain [R07.9] 12/01/2021 Mixed hyperlipidemia [E78.2] 09/20/2023 Class 2 severe obesity due to excess calories w*09/24/2023 Obesity, Class I, BMI 30-34.9 [E66.9] 10/19/2023 Encounter Status:Closed by [facility], PRODUSER on 01/31/24[facility] 12-20-2023 Telephone encounter Note* Telephone Encounter - Jojo Castaneda RN - 12/20/2023 4:37 PM EDT Fax received from [employer] stating that they have been unsuccessful in reaching Pt to set up her overnight pulse oximetry test; therefore, the order has been cancelled. See scanned document. Jojo Castaneda RN December 20, 2023 4:38 PM [facility]04-29-2024 Miscellaneous Notes* Telephone Encounter - Jojo Castaneda RN - 12/20/2023 4:37 PM EDT Fax received from [employer] stating that they have been unsuccessful in reaching Pt to set up her overnight pulse oximetry test; therefore, the order has been cancelled. See scanned document. Jojo Castaneda RN December 20, 2023 4:38 PM documented in this encounterLake County [facility]04-25-2024 Telephone encounter Note * Telephone Encounter - Heather Freeman MA - 12/16/2023 10:44 AM EDT Patient electronically requesting refills as follows: Requested Prescriptions Pending Prescriptions Disp Refills albuterol HFA (VENTOLIN HFA) 90 mcg/actuation inhaler 54 g 3 Sig: Inhale 2 Puffs as instructed every 4 hours as needed for wheezing/shortness of breath. Please review and advise. Heather Freeman MA [facility]04-25-2024 Miscellaneous Notes* Telephone Encounter - Heather Freeman MA - 12/16/2023 10:44 AM EDT Patient electronically requesting refills as follows: Requested Prescriptions Pending Prescriptions Disp Refills albuterol HFA (VENTOLIN HFA) 90 mcg/actuation inhaler 54 g 3 Sig: Inhale 2 Puffs as instructed every 4 hours as needed for wheezing/shortness of breath. Please review and advise. Heather Freeman MA documented in this encounterLake County [facility]04-25-2024 Telephone encounter Note * Telephone Encounter - Alla Brandt LPN - 12/16/2023 7:47 AM EDT Patient has been identified by name and date of : No Patient phones for refill(s): Requested Prescriptions Pending Prescriptions Disp Refills furosemide (LASIX) 40 mg tablet 90 tablet 3 Sig: Take 1 tablet by mouth once daily. Date of last office visit in primary care: 10/19/2023 Date of next office visit in primary care: 01/03/2024 Please advise. Thank you. Alla Brandt LPN. [facility] Work Phone: [phone]) 620-576604-25-2024 Miscellaneous Notes* Telephone Encounter - Alla Brandt LPN - 12/16/2023 7:47 AM EDT Patient has been identified by name and date of : No Patient phones for refill(s): Requested Prescriptions Pending Prescriptions Disp Refills furosemide (LASIX) 40 mg tablet 90 tablet 3 Sig: Take 1 tablet by mouth once daily. Date of last office visit in primary care: 10/19/2023 Date of next office visit in primary care: 01/03/2024 Please advise. Thank you. Alla Brandt LPN. documented in this encounterL[facility] Telephone encounter Note * Telephone Encounter - Alla Brandt LPN - 12/16/2023 7:46 AM EDT Patient has been identified by name and date of : No Patient phones for refill(s): Requested Prescriptions Pending Prescriptions Disp Refills albuterol (PROVENTIL) 2.5 mg /3 mL (0.083 %) nebulizer solution 3 mL 5 Sig: Use 3 mL via nebulizer every 4 hours as needed for wheezing/shortness of breath. J44.9 Date of last office visit in primary care: 10/19/2023 Date of next office visit in primary care: 01/03/2024 Please advise. Thank you. Alla Brandt LPN. [facility] Work Phone: [phone]) 321-858404-25-2024 Miscellaneous Notes* Telephone Encounter - Alla Brandt LPN - 12/16/2023 7:46 AM EDT Patient has been identified by name and date of : No Patient phones for refill(s): Requested Prescriptions Pending Prescriptions Disp Refills albuterol (PROVENTIL) 2.5 mg /3 mL (0.083 %) nebulizer solution 3 mL 5 Sig: Use 3 mL via nebulizer every 4 hours as needed for wheezing/shortness of breath. J44.9 Date of last office visit in primary care: 10/19/2023 Date of next office visit in primary care: 01/03/2024 Please advise. Thank you. Alla Brandt LPN. documented in this encounterLake [facility]04-15-2024 Miscellaneous Notes* Telephone Encounter - Shari Hawk RN - 12/06/2023 1:32 PM EDT Patient requesting refills as follows: Requested Prescriptions Pending Prescriptions Disp Refills rosuvastatin (CRESTOR) 5 mg tablet 90 tablet 3 Sig: Take 1 tablet by mouth daily at bedtime. Please review and advise. Shari Hawk RN documented in this encounterLake [facility]-11-2024 Miscellaneous Notes* Telephone Encounter - Rosi Gumaan LPN - 12/02/2023 4:42 PM EDT Called patient. Verified name and date of . Patient denies having Oxygen in her home. States she had been staying with her daughter and had been using a oxygen concentrator that was at her daughters home. Rosi Guaman LPN * Telephone Encounter - Florina Arenas PA-C - 12/02/2023 3:47 PM EDT I am so confused. At her BELEN with me on 11/08 she said she was wearing supplemental oxygen as needed and had a concentrator in the home, but just needed portables. I can drop an order for a concentrator. I will not be back in the [place] office until December 13. Will you print it off and FAX it please? Anni * Telephone Encounter - Rosi Guaman LPN - 12/02/2023 3:37 PM EDT Received fax from [facility]. [employer] had left multiple messages and sent a letter to patient. Patient called them this morning. Fax available for Florina Arenas PA-C to review regarding overnight pox order. The overnight POX order is scripted with 2 L, the patient does not currently have O2 in the home. They request order to be clarified. Rosi Guaman LPN * Telephone Encounter - Jinny Alejo RN - 12/02/2023 2:47 PM EDT Received phone call from [employer]. Requesting order for O2 concentrator with portable tanks and liter flow along with BELEN note and testing faxed to [phone]. * Telephone Encounter - Heather Freeman MA - 12/02/2023 1:22 PM EDT I spoke with [place] [facility] states that the info that I faxed today has not yet been uploaded, but she will make a note that they are to contact us VEE if any additional info is needed to expedite the patients receipt of Oxygen. Heather Freeman MA * Telephone Encounter - Heather Freeman MA - 12/02/2023 12:34 PM EDT Received fax from [employer] that they have questions about the orders. Orders were sent 11/08, but were apparently unable to reach the patient until today. Faxed the office note and Oximetry with ambulation. Will call and speak with rep once they have received that info to confirm they have everything they need. Heather Freeman MA documented in this encounterLake [facility]04-03-2024 Miscellaneous Notes* Telephone Encounter - Alla Brandt LPN - 11/24/2023 5:07 PM EDT Patient has been identified by name and date of : No Patient phones for refill(s): Requested Prescriptions Pending Prescriptions Disp Refills cholecalciferol (VITAMIN D3) 1,000 unit tab tablet 90 tablet 3 Sig: Take 1 tablet by mouth once daily. Date of last office visit in primary care: 10/19/2023 Date of next office visit in primary care: 12/02/2023 Please advise. Thank you. Alla Brandt LPN. documented in this encounterLake [facility]03-19-2024 Procedure note* Thierno Carlson RPFT - 11/09/2023 11:25 AM EDTAssociated Order(s): OXIMETRY WITH AMBULATION RESPIRATORY THERAPY OXIMETRY WITH AMBULATION Oximetry with Ambulation Test for This Encounter O2 Device O2 Adapter NC O2 Flow SpO2% HR Activity Ft Walked (ft) Time (min) Avg Speed (MPH) R/A 92 63 Resting R/A 89 83 Walking, usual pace 400 3 1.52 R/A 87 105 Walking, fastest pace 500 2.9 1.96 NC 2 95 60 Resting NC 2 93 89 Walking, fastest pace 530 3 2.01 General Information Pulse Oximetry Site Total Time Spent Walking Assistance/O2 Supply Carrier L Index Finger 30 Wheeled Walker NAME: [place] [employer] PATIENT NAME: Francis Diez DATE: November 09, 2023 TIME: 11:25 AM Comment: documented in this encounterLake [facility]03-19-2024 History of Present illness Narrative* Thierno Carlson RPFT - 11/09/2023 11:22 AM EDT PULM FUNCTION SMARTBLOCK: Provider: Florina Arenas PA-C Assisting Tech: Thierno Carlson RPFT Oximetry - Ambulation: 1 documented in this encounterLake [facility]03-19-2024 History of Present illness Narrative* Florina Arenas PA-C - 11/09/2023 11:09 AM EDT Patient: Francis Diez PCP: Mariluz High MD CC: follow up HPI: Francis Diez 58 year old female current daily smoker, 84 pack years with PMH significant for bronchiectasis s/p LLL resection for infection in 1992, left diaphragmatic dysfunction, chronic asthmatic bronchitis, COPD and HTN. Current therapy with Symbicort and Albuterol as needed. Patient was exposed to RSV in early August 2023 resulting in AECOPD and was treated with Azithromycin and Prednisone per PCP. She had minimal improvement and was then treated with Levaquin and Prednisone. CXR inJanuary with possible infiltrate and improved on subsequent CXR in September. Today, she reports daily cough productive of white sputum. No hemoptysis. Frequent wheezing. Exertional dyspnea with walking short distances since having RSV. Gets SOB of with showering. Currently wearing supplemental oxygen as needed and at night. DME: [employer] PAST MEDICAL HISTORY Diagnosis Date Allergies ASTHMA UNSPECIFIED 07/08/2005 Bronchiectasis (HCC) CHRONIC AIRWAY OBSTRUCTION NEC 07/08/2005 Depression Diaphragm dysfunction HYPERTENSION NOS 07/08/2005 Allergies: Benadryl [Diphenhyd* Shortness of Breath Comment:She is not sure of the reaction. Was given it in the ER years ago. Penicillins Hives DULoxetine (CYMBALTA) 30 mg capsule^Take 1 capsule by mouth once daily.^Disp: 30 capsule^Rfl: 2 LORazepam (ATIVAN) 0.5 mg^Take 1 tablet by mouth once daily as needed for up to 30 days.^Disp: 15 tablet^Rfl: 0 cholecalciferol (VITAMIN D3) 1,000 unit tab tablet^Take 1 tablet by mouth once daily.^Disp: 90 tablet^Rfl: 3 cyclobenzaprine (FLEXERIL) 10 mg tablet^Take 1 tablet by mouth at bedtime as needed for muscle spasm or pain.^Disp: 30 tablet^Rfl: 0 spironolactone (ALDACTONE) 25 mg tablet^Take 1 tablet by mouth once daily.^Disp: 90 tablet^Rfl: 1 buPROPion XL (WELLBUTRIN XL) 300 mg 24 hr tablet^Take 1 tablet by mouth once daily.^Disp: 90 tablet^Rfl: 3 albuterol (PROVENTIL) 2.5 mg /3 mL (0.083 %) nebulizer solution^Use 3 mL via nebulizer every 4 hours as needed for wheezing/shortness of breath. J44.9^Disp: 3 mL^Rfl: 5 ipratropium (ATROVENT) 0.02 % nebulizer solution^Use 2.5 mL via nebulizer four times a day as needed. OVER 5-15 MINUTES FOR WHEEZING OR SHORTNESS OF BREATH J44.9^Disp: 2.5 mL^Rfl: 5 furosemide (LASIX) 40 mg tablet^TAKE 1 TABLET BY MOUTH ONCE DAILY^Disp: 90 tablet^Rfl: 3 potassium chloride SR (MICRO-K) 10 mEq CR capsule^TAKE 1 CAPSULE BY MOUTH 3 TIMES DAILY^Disp: 270 capsule^Rfl: 3 insulin needles, DISPOSABLE, (PEN NEEDLE) 31 gauge x 5/16^Use one needle per dose. 1 per day.^Disp: 100 Each^Rfl: 11 albuterol HFA (VENTOLIN HFA) 90 mcg/actuation inhaler^Inhale 2 Puffs as instructed every 4 hours asneeded for wheezing/shortness of breath.^Disp: 54 g^Rfl: 3 rosuvastatin (CRESTOR) 5 mg tablet^Take 1 tablet by mouth daily at bedtime.^Disp: 90 tablet^Rfl: 3 traZODone (DESYREL) 100 mg tablet^TAKE 3 TABLETS EVERY DAY^Disp: 270 tablet^Rfl: 3 budesonide-formoterol (SYMBICORT) 160-4.5 mcg/actuation inhaler^Inhale 2 Puffs as instructed twice daily.^Disp: 1 Each^Rfl: 0 fluticasone (FLONASE) 50 mcg/actuation nasal spray^Use 2 Sprays in each nostril once daily. ADMINISTER 2 SPRAYS EACH NOSTRIL DAILY, RINSE MOUTH OUT AFTER USE.^Disp: 3 Each^Rfl: 3 nitroglycerin sublingual (NITROQUICK) 0.4 mg SL tablet^Dissolve 1 tablet under the tongue as needed. FOR CHEST PAIN. IF NO RELIEF CALL 911^Disp: 25 tablet^Rfl: 0 COMPOUNDED PRESCRIPTION^Oxygen 2L at night and as needed^Disp: ^Rfl: 11 COMPOUNDED PRESCRIPTION^Nebulizer machine DX: 496/143.90^Disp: 1^Rfl: 0 Social History Tobacco Use Smoking status: Every Day Packs/day: 2.00 Years: 42.00 Additional pack years: 0.00 Total pack years: 84.00 Types: Cigarettes Start date: 1982 Smokeless tobacco: Never Tobacco comments: Did not smoke during pregnancies. Former 2 ppd smoker. Less than 1/2ppd 12/22/2022 Vaping Use Vaping Use: Never used Substance Use Topics Alcohol use: No Drug use: No Family History Problem Relation Age of Onset other (Lung cancer [Other]) Mother Asthma Mother Diabetes Father Dialysis Father other (Myocardial infarction) Sister Colon Cancer Sister Colon Cancer Brother 2 brothers. other (Myocardial infarction) Brother PAST SURGICAL HISTORY Procedure Laterality Date LAPS SURG CHOLECYSTECTOMY W/CHOLANGIOGRAPHY 04-21-[address] [facility] [address] Guillen RMVL LUNG OTHER THAN PNEUMONECTOMY 1 LOBE LOBECT 1992 Left - bronchiectasis TOTAL ABDOMINAL HYSTERECT W/WO RMVL TUBE OVARY Hysterectomy, CARMENCITA I reviewed the past medical history, family history, social history and surgical history with changes noted above and updated in EMR. IMMUNIZATIONS Prevnar - 12/15/2006 Pneumovax - 10/26/2014 Influenza - 06/16/2022 COVID-19 - xx ROS: General: No fevers, chills or night sweats. No unintended weight loss. Eyes, Ears, nose, throat: No post nasal drip, rhinorrhea, purulent nasal discharge, epistaxis. No hoarseness. Vision stable. Cardiac: No angina, edema, orthopnea. Resp: See HPI. GI: No heartburn, dysphagia. Musculoskeletal: No joint pain or swelling. Neuro: No headache, focal weakness, tremor. Skin: No skin changes or rash. Otherwise negative. PHYSICAL EXAMINATION: BP 130/80 (BP Site: Right Arm, BP Position: Sitting, BP Cuff Size: Large Adult) Pulse 63 Wt 84.8 kg (187 lb) SpO2 92% BMI 34.20 kg/m Gen: No acute distress. Cooperative with examination. HEENT: Normocephalic. Sclera, conjunctiva clear. Oral hygeine and dentition poor.. No thrush. Resp: No stridor, accessory respiratory muscle use, supra-sternal or intercostal retractions. Scattered wheezes with rhonchi. No crackles. CV: Regular rythm. Heart tones normal. Radial pulses normal. Ext: Warm and well perfused. No clubbing, cyanosis, edema. Skin: No rash, ecchymoses. Neuro: Mental status normal. Affect normal. No tremor. DATA: Oximetry, 11/09/2023 Oximetry with Ambulation Test for This Encounter O2 Device O2 Adapter NC O2 Flow SpO2% HR Activity Ft Walked (ft) Time (min) Avg Speed (MPH) R/A 92 63 Resting R/A 89 83 Walking, usual pace 400 3 1.52 R/A 87 105 Walking, fastest pace 500 2.9 1.96 NC 2 95 60 Resting NC 2 93 89 Walking, fastest pace 530 3 2.01 PFT, 11/25/2021 IMPRESSION: Spirometry shows no obstruction.The reduced FVC suggests restriction. Recommend lung volumes if clinically indicated. Electronically Signed On 11-25-2021 16:15:22 EDT by Penny Garner M.D. Exhaled nitric oxide (Dorie), 11/25/2021: 5 (normal < 20). Component Latest Ref Rng & Units 11/25/2021 09/02/2023 Abs Eosin <0.46 k/uL 0.71 (H) 0.49 IgE <114.0 kU/l 30.7 CXR, 10/14/2023 IMPRESSION: Overall findings unchanged. COMPARISON: Chest x-ray on 09/03/2023 RESULT: Lines, tubes, and devices: None. Lungs and pleura: There are postoperative changes in the left lung, with significant elevation of the left hemidiaphragm. Associated pulmonary infiltrates versus atelectasis seen in the left lung. No new consolidations visualized. No visible masses. No pleural effusions or pneumothorax. Cardiomediastinal silhouette: Difficult to evaluate cardiomediastinal silhouette however grossly unchanged. Bones and soft tissues: There are degenerative changes in the spine. CXR, 09/03/2023 IMPRESSION: Mild patchy airspace opacities right lower lung may represent atelectasis or developing infiltrates. Recommend follow-up. COMPARISON: 12/10/2022 RESULT: Lines, tubes, and devices: None. Lungs and pleura: Postsurgical changes with moderate elevation of the left hemidiaphragm, redemonstrated. Patchy airspace opacities right lower lung. No pleural effusion or pneumothorax. Cardiomediastinal silhouette: Stable cardiomediastinal silhouette. Bones and soft tissues: Degenerative changes are present within the thoracic spine. CT chest, 12/05/2021 IMPRESSION: 1. No acute chest pathology 2. Unchanged elevation of the left hemidiaphragm 3. Again noted is scarring or atelectasis in the medial right middle lobe and right lower lobe Comparison: CT chest 12/03/2014 RESULT: Limitations: None. Lines, tubes, and devices: None. Lung parenchyma and airways: Elevation of the left hemidiaphragm. Linear areas of scarring or atelectasis in the medial right middle lobe and right lower lobe. No consolidation. Stable 4 mm nodule posterior left lower lobe (6:67). No new suspicious pulmonary nodule. The central airways are patent. Pleural space: No pleural effusion. No pleural thickening. Lower neck, lymph nodes, and mediastinum: The imaged thyroid gland is normal. No lymphadenopathy in the supraclavicular, axillary, mediastinal, or hilar regions. Heart, pericardium, and thoracic vessels: The thoracic aorta and main pulmonary artery are normal in caliber. The cardiac chambers are normal in size. No coronary artery atherosclerotic calcifications are noted, although the study is not optimized for coronary assessment. No pericardial effusion or thickening. Bones and soft tissues: No destructive bone lesion. Degenerative disease of the thoracic spine. Chest wall is unremarkable. Upper abdomen: No acute abnormality in the imaged upper abdomen. Residence Manager (topogram) images: No additional findings. ASSESSMENT/PLAN: 1. Asthma with COPD with exacerbation (HCC) (HCC) - ICD9: 493.22, ICD10: J44.1, J45.901 (primary diagnosis) Previously treated for AECOPD secondary to RSV in August and September 2023. Wheezing on exam today. Prednisone burst as directed. - PREDNISONE 20 MG TABLET 2. Asthma-COPD overlap syndrome (HCC) - ICD9: 493.20, ICD10: J44.89 Change to triple therapy Trelegy. Coupon provided. Obtain updated PFTs. Based on oximetry today, patient requires 2L supplemental oxygen with exertion. Will check nocturnal oximetry on 2L. Smoking cessation is critical. - OXIMETRY - NOCTURNAL - PORTABLE OXYGEN CONCENTRATOR - FLUTICASONE FUR. 100 MCG-UMECLID 62.5 MCG-VILANT 25 MCG INHALAT.POWDER - SPIROMETRY WITH DILATOR IF OBSTRUCTED 3. Tobacco use current - ICD9: 305.1, ICD10: Z72.0 - Cessation encouraged. - Physiologic and physical aspects of tobacco addiction as well as strategies for quitting were discussed. - Counseling was given focusing on the harmful effects of this addiction especially given the patient's medical condition(s) which will be worsened because of the chemicals in tobacco. 4. Diaphragm dysfunction - ICD9: 519.4, ICD10: J98.6 Stable 5. Eosinophilia, unspecified type - ICD9: 288.3, ICD10: D72.10 Previously on Singular. Unclear why discontinued. Will monitor need for biologics. Portions of this documentation were copied and pasted from previous office visit notes in order to provide a cohesive continuity of the history. The note has been reviewed and edited and updated as necessary. Florina Arenas PA-C documented in this encounterLake [facility]03-07-2024 History of Present illness Narrative* Sylvia Edmonds MA - 10/28/2023 3:40 PM EST POPULATION HEALTH NAVIGATION OUTREACH Action/FYI Last AWV 11/23/2022 FOBT ordered 09/17/2023 Mammogram due 12/19/2023 or after Reason for Outreach Care Gap/HCC or Scheduling Wellness Visits Care Gaps due: Medicare Annual Wellness Visit Breast Cancer Screening Colorectal Cancer Screening Patient Contacted: Unable or unnecessary to reach patient: Unable to leave message Turbo-Trac USAt message sent Navigation Signature: Sylvia Hansen MA October 28, 2023 3:40 PM documented in this encounterLake County Memorial [facility]02-29-2024 Miscellaneous Notes* Telephone Encounter - Estrella Hill LPN - 10/21/2023 1:38 PM EST Spoke with patient re: 11AM oximetry/1PM appt with THI. Estrella Hill LPN * Addendum Note - Florina Arenas PA-C - 10/21/2023 1:34 PM ESTAddended by: FLORINA ARENAS on: 10/21/2023 01:34 PM Modules accepted: Orders * Telephone Encounter - Florina Arenas PA-C - 10/21/2023 1:33 PM EST Order placed. Anni * Telephone Encounter - Estrella Hill LPN - 10/21/2023 1:27 PM EST Agree, patient needs to requalify for O2. Estrella Hill LPN * Telephone Encounter - Rosi Guaman LPN - 10/21/2023 12:30 PM EST Patient called. Verified name and date of . Patient was seen last year in November and Oxygen was[facility] through [facility] but she was not able to get it due to insurance reasons. Patient had been using a friends Oxygen as needed but friend has since moved. Patient now has Medicare and [facility] and the Oxygen is covered. [facility] advised patient a new order for oxygen is needed. Transferred patient to scheduling to make appointment. Rosi Guaman LPN documented in this encounterLake County [facility]02-29-2024 Miscellaneous Notes* Telephone Encounter - Nimco Louis RN - 10/21/2023 12:28 PM EST Patient calling for new script for oxygen to [facility]. She says this is needed for billing purposes. Ordered by Florina ELLSWORTH Advised patient new order will need to come from Pulmonary. Nimco Louis RN documented in this encounterLake County [facility]02-27-2024 History of Present illness Narrative* Sona Cullen PA-C - 10/19/2023 1:10 PM EST CC: Patient presents with: Follow Up: meds- mounjaro, anxiety, c/o more SOB and review xray results HPI Francis Diez is a 58 year old female who presents today for follow-up regarding medications, including Mounjaro and anxiety medication. Patient is complaining of increased shortness of breath and would like to review her x-ray results. XR results as follows: Lines, tubes, and devices: None. Lungs and pleura: There are postoperative changes in the left lung, with significant elevation of the left hemidiaphragm. Associated pulmonary infiltrates versus atelectasis seen in the left lung. Nonew consolidations visualized. No visible masses. No pleural effusions or pneumothorax. Cardiomediastinal silhouette: Difficult to evaluate cardiomediastinal silhouette however grossly unchanged. Bones and soft tissues: There are degenerative changes in the spine. In regards to anxiety/mood: Has had a lot of stress with son being in intermediate, about to sit for trial to be sent to shelter. Havingto take lorazepam almost daily. Has been on and off this the past 3-4 years. Has tried several antidepressants in the past, but didn't care for the sertraline because it caused her to gain weight. She takes 300 mg of trazodone nightly for insomnia. REVIEW OF SYSTEMS See HPI All other systems negative. PAST MEDICAL HISTORY Diagnosis Date Allergies ASTHMA UNSPECIFIED 07/08/2005 Bronchiectasis (HCC) CHRONIC AIRWAY OBSTRUCTION NEC 07/08/2005 Depression Diaphragm dysfunction HYPERTENSION NOS 07/08/2005 PAST SURGICAL HISTORY Procedure Laterality Date LAPS SURG CHOLECYSTECTOMY W/CHOLANGIOGRAPHY 04-21-[address] [facility] [address] Guillen RMVL LUNG OTHER THAN PNEUMONECTOMY 1 LOBE LOBECT 1992 Left - bronchiectasis TOTAL ABDOMINAL HYSTERECT W/WO RMVL TUBE OVARY Hysterectomy, CARMENCITA ALLERGIES Benadryl [Diphenhydramine Hcl] and Penicillins MEDICATIONS LORazepam (ATIVAN) 0.5 mg^Take 1 tablet by mouth once daily as needed for up to 30 days.^Disp: 15 tablet^Rfl: 0 cholecalciferol (VITAMIN D3) 1,000 unit tab tablet^Take 1 tablet by mouth once daily.^Disp: 90 tablet^Rfl: 3 cyclobenzaprine (FLEXERIL) 10 mg tablet^Take 1 tablet by mouth at bedtime as needed for muscle spasm or pain.^Disp: 30 tablet^Rfl: 0 sertraline (ZOLOFT) 100 mg tablet^Take 1 tablet by mouth once daily.^Disp: 90 tablet^Rfl: 1 spironolactone (ALDACTONE) 25 mg tablet^Take 1 tablet by mouth once daily.^Disp: 90 tablet^Rfl: 1 buPROPion XL (WELLBUTRIN XL) 300 mg 24 hr tablet^Take 1 tablet by mouth once daily.^Disp: 90 tablet^Rfl: 3 albuterol (PROVENTIL) 2.5 mg /3 mL (0.083 %) nebulizer solution^Use 3 mL via nebulizer every 4 hours as needed for wheezing/shortness of breath. J44.9^Disp: 3 mL^Rfl: 5 ipratropium (ATROVENT) 0.02 % nebulizer solution^Use 2.5 mL via nebulizer four times a day as needed. OVER 5-15 MINUTES FOR WHEEZING OR SHORTNESS OF BREATH J44.9^Disp: 2.5 mL^Rfl: 5 furosemide (LASIX) 40 mg tablet^TAKE 1 TABLET BY MOUTH ONCE DAILY^Disp: 90 tablet^Rfl: 3 potassium chloride SR (MICRO-K) 10 mEq CR capsule^TAKE 1 CAPSULE BY MOUTH 3 TIMES DAILY^Disp: 270 capsule^Rfl: 3 albuterol HFA (VENTOLIN HFA) 90 mcg/actuation inhaler^Inhale 2 Puffs as instructed every 4 hours asneeded for wheezing/shortness of breath.^Disp: 54 g^Rfl: 3 rosuvastatin (CRESTOR) 5 mg tablet^Take 1 tablet by mouth daily at bedtime.^Disp: 90 tablet^Rfl: 3 budesonide-formoterol (SYMBICORT) 160-4.5 mcg/actuation inhaler^Inhale 2 Puffs as instructed twice daily.^Disp: 1 Each^Rfl: 0 fluticasone (FLONASE) 50 mcg/actuation nasal spray^Use 2 Sprays in each nostril once daily. ADMINISTER 2 SPRAYS EACH NOSTRIL DAILY, RINSE MOUTH OUT AFTER USE.^Disp: 3 Each^Rfl: 3 nitroglycerin sublingual (NITROQUICK) 0.4 mg SL tablet^Dissolve 1 tablet under the tongue as needed. FOR CHEST PAIN. IF NO RELIEF CALL 911^Disp: 25 tablet^Rfl: 0 COMPOUNDED PRESCRIPTION^Oxygen 2L at night and as needed^Disp: ^Rfl: 11 COMPOUNDED PRESCRIPTION^Nebulizer machine DX: 496/143.90^Disp: 1^Rfl: 0 dulaglutide (TRULICITY) 0.75 mg/0.5 mL pen injector^Inject 0.75 mg subcutaneously one time a week.^Disp: 2 mL^Rfl: 0 predniSONE (DELTASONE) 20 mg tablet^Take 2 tablets by mouth once daily.^Disp: 8 tablet^Rfl: 1 insulin needles, DISPOSABLE, (PEN NEEDLE) 31 gauge x 5/16^Use one needle per dose. 1 per day.^Disp: 100 Each^Rfl: 11 nicotine (NICODERM CQ) 14 mg/24 hr^Apply 1 Patch as directed every 24 hours.^Disp: 28 Patch^Rfl: 0 nicotine (NICODERM CQ) 7 mg/24 hr^Apply 1 Patch as directed every 24 hours.^Disp: 14 Patch^Rfl: 1 (Patient not taking: Reported on 09/24/2023) traZODone (DESYREL) 100 mg tablet^TAKE 3 TABLETS EVERY DAY^Disp: 270 tablet^Rfl: 3 FAMILY HISTORY Problem Relation Age of Onset other (Lung cancer [Other]) Mother Asthma Mother Diabetes Father Dialysis Father other (Myocardial infarction) Sister Colon Cancer Sister Colon Cancer Brother 2 brothers. other (Myocardial infarction) Brother Social History Tobacco Use Smoking status: Every Day Packs/day: 2.00 Years: 42.00 Additional pack years: 0.00 Total pack years: 84.00 Types: Cigarettes Start date: 1982 Smokeless tobacco: Never Tobacco comments: Did not smoke during pregnancies. Former 2 ppd smoker. Less than 1/2ppd 12/22/2022 Vaping Use Vaping Use: Never used Substance Use Topics Alcohol use: No Drug use: No PHYSICAL EXAM BP 128/70 (BP Site: Left Arm, BP Position: Sitting, BP Cuff Size: Large Adult) Pulse 91 Temp 36.2 C (97.1 F) Resp 14 Ht 157.5 cm (5' 2) Wt 79.8 kg (176 lb) SpO2 93% BMI 32.19 kg/m General Appearance: well appearing, in no acute distress, alert, obese body habitus Psych: Anxious affect noted Skin: Skin color, texture, turgor normal for age Lungs: Diffuse wheezing noted bilaterally in apices and bases. Heart: RRR without murmur, gallop, or rubs. Extremities: No gross deformities, significant edema, skin discoloration, clubbing or cyanosis. Neurological: Gait normal. No focal neurological deficits. Sensation grossly intact. ASSESSMENT/PLAN: 1. Severe anxiety with panic - ICD9: 300.01, ICD10: F41.0 (primary diagnosis) Has been tried on several different medications in the past. Will trial on Cymbalta, in hopes of also treating her low back pain. Discussed medication indications, proper use, and potential adverse effects. All questions and concerns addressed to patient satisfaction. Will reassess efficacy in 6 weeks; consider titration up to 60 mg if tolerating well to adequately treat pain as well. Reinforced the importance of utilizing lorazepam as infrequently as possible, as this is intended to be a rescue medication. Discussed that it is a controlled substance and poses a risk of addiction,as well as dependence, and is reported to increase risk of dementia in the older age group along with risk of falling and drowsiness . 2. Primary insomnia - ICD9: 307.42, ICD10: F51.01 Continue current management on 300 mg trazodone nightly, as this had been a previously established regimen 3. Essential hypertension - ICD9: 401.9, ICD10: I10 - Controlled - Continue current medications - Recommend home blood pressure monitoring, to bring results to next visit - Encouraged sodium restriction, DASH or Mediterranean diet - Recommend regular aerobic exercise 4. Class 1 obesity without serious comorbidity with body mass index (BMI) of 32.0 to 32.9 in adult,unspecified obesity type - ICD9: 278.00, V85.32, ICD10: E66.9, Z68.32 Upwards of 196 pounds in 03/14-now down to 176 pounds at the present It appears as though both Mounjaro and Victoza were sent as options for weight loss, but both have been denied. Advised that patient return so we can discuss alternative options more in depth at upcoming visit Follow-up 6 weeks mood after Cymbalta start, discuss weight loss options Prescription instructions reviewed with patient as applicable. Potential red flag symptoms discussed with the patient. Reviewed appropriate action plan to take if red flag symptoms occur. Patient agreeable to treatment plan. Sona Cullen PA-C documented in this encounterL[facility]24 History of Present illness Narrative* Florecita See RT(R) - 10/14/2023 3:10 PM EST Radiology Service Progress Note PATIENT NAME: Francis Diez DATE OF SERVICE: October 14, 2023 TIME: 3:10 PM PATIENT IDENTITY VERIFICATION COMPLETED USING TWO (2) IDENTIFIERS: Name and Date of confirmedby patient verbally. FALL SCREENING: Has the patient had 2 falls in the last year or 1 fall with injury or currently using an Ambulatory Assistive Device (Walker, Cane, Wheelchair, Crutches, etc.)? No PATIENT GENDER DATA: Female. status: : No status: NO. PATIENT RELEVANT IMPLANT DATA REVIEWED: Yes PATIENT PRESENTS WITH AN IMPLANTABLE OR ATTACHED SAFETY COORDINATOR: No RADIOLOGY DEPARTMENT: General X-ray: Exam(s) Completed: Chest X-Ray PERIPHERAL IV DATA: Not applicable SIGNED BY: RT Kelsey(R) October 14, 2023 3:10 PM documented in this encounterLake County [facility]02-21-2024 Miscellaneous Notes* Telephone Encounter - Sona Otero MA - 10/13/2023 2:54 PM EST Patient notified and verbalized understanding. Sona Otero MA * Telephone Encounter - Cheyanne Cortez APRN.CNP - 10/13/2023 2:01 PM EST I do not see that she has had a repeat chest xray since the one when she was in August. I am ordering so it ca be repeated and verify infection and infiltrates has resolved. Thank you Cheyanne Cortez APRN.CNP documented in this encounterLake [facility]02-19-2024 Miscellaneous Notes* Telephone Encounter - Heather Fairbanks LPN - 10/11/2023 1:47 PM EST Pt notified and apt booked. Heather Fairbanks LPN * Telephone Encounter - Cheyanne Cortez APRN.CNP - 10/11/2023 12:24 PM EST I am so sorry she is going through this. I am refilling small amount but patient needs to come in to further discuss other medication changes to help with this anxiety. Take care Cheyanne Cortez APRN.CNP PDMP website checked and validated. All prescriptions have been APPROPRIATELY filled. No suspiciousactivity was identified. 10/11/2023 by Cheyanne Cortez APRN.CNP * Telephone Encounter - Alla Brandt LPN - 10/11/2023 10:13 AM EST Zoloft is not helping. Patient is needing something . Patient stated that her son is in intermediate and probably going to shelter. Now she can not have any contact with him now. Alla Brandt LPN please advise * Telephone Encounter - Cheyanne Cortez APRN.CNP - 10/11/2023 9:11 AM EST Usage of lorazepam was to be short term until increase in zoloft dosage improved her anxiety. Has this not helped? Is she tolerating the zoloft? Thank you Cheyanne Cortez APRN.CNP * Telephone Encounter - Alla Brandt LPN - 10/11/2023 8:26 AM EST Patient has been identified by name and date of : No Patient phones for refill(s): Requested Prescriptions Pending Prescriptions Disp Refills LORazepam (ATIVAN) 0.5 mg 30 tablet 0 Sig: Take 1 tablet by mouth once daily as needed for up to 30 days. Date of last office visit in primary care: 09/24/2023 Date of next office visit in primary care: 10/26/2023 Please advise. Thank you. Alla Brandt LPN. documented in this encounterLake [facility]02-13-2024 Miscellaneous Notes* Telephone Encounter - Ana Luisa Cruz LPN - 10/05/2023 11:47 AM EST Trulicity denied. Request Reference Number: [id number]. TRULICITY INJ 0.75/0.5 is denied due to Plan Exclusion. For further questions, call . Pt notified via my chart. * Telephone Encounter - Ana Luisa Cruz LPN - 10/05/2023 10:21 AM EST Victozia was changed to trulicity. PA was completed for trulicity * Telephone Encounter - Melita Barrera - 10/02/2023 11:51 AM EST Patient is calling stating [facility] is to fax the office a list of three medications that they cover andthe patient could try. Please advise patient. * Telephone Encounter - Leah Sahu LPN - 10/02/2023 11:34 AM EST Patient calling went over notes below, patient said she spoke to her insurance and was told it is covered. * Telephone Encounter - Javier Truong APRN.CNS - 10/01/2023 3:28 PM EST It does not look like this is covered by insurance but sent it per request. * Telephone Encounter - Amalia Gonzales APRN.CNP - 10/01/2023 1:08 PM EST Kwame Kaiser, looks like you have been working on this with the patient. * Telephone Encounter - Ana Luisa Cruz LPN - 10/01/2023 12:59 PM EST Pharmacy changed to [facility] in the encounter. I don't believe victoza is covered for weight loss. I don't see pt has diabetes. There is no active rx for victoza * Telephone Encounter - Gigi Ferrera RN - 10/01/2023 11:26 AM EST Pt reports she spoke with her insurance company, [facility] Medicare, and they informed her they will cover victoza, if provider does a PA, with PA # [id number]. Prior Authorization Documentation Prior authorization requested for the following medication: Medication: Victoza Provider: Jennifer Insurance Company Name: [facility] Medicare Insurance Company Phone number: [phone] Patient ID number: [id number] Pharmacy Name: [facility] Telephone number: [phone] documented in this encounterLake [facility]02-13-2024 Miscellaneous Notes* Telephone Encounter - Ana Luisa Cruz LPN - 10/05/2023 8:58 AM EST I would believe these all would be covered with a diagnosis of diabetes. The last A1c was 09/15/23 and it was 5.4. There is no diagnosis of diabetes on pts problem list. documented in this encounterLake County [facility]02-06-2024 Miscellaneous Notes* Telephone Encounter - Elo Jamison LPN - 09/28/2023 5:12 PM EST Patient notified of providers message and verbalized understanding. * Telephone Encounter - Javier Truong APRN.CNS - 09/28/2023 4:56 PM EST Rosio was on her list of covered medications per the letter she provided at her visit. Would recommend that she contact her insurance and ask what medications are covered for weight losson her plan. * Telephone Encounter - Monica Oconnell - 09/27/2023 12:48 PM EST Patient said she received a mychart message from the nurse stating that Rosio is not covered by her insurance. Patient said when she saw Javier Truong last week, she gave her a list of the medications that are covered under her insurance. Wants to know if we can review that list and send another medication. Please advise at [phone]. documented in this encounterLake [facility]02-06-2024 History of Present illness Narrative* Augustin Bueno RT(R) - 09/28/2023 11:30 AM EST Radiology Service Progress Note PATIENT NAME: Francis Diez DATE OF SERVICE: September 28, 2023 TIME: 11:23 AM PATIENT IDENTITY VERIFICATION COMPLETED USING TWO (2) IDENTIFIERS: Name and Date of confirmedby patient verbally. FALL SCREENING: Has the patient had 2 falls in the last year or 1 fall with injury or currently using an Ambulatory Assistive Device (Walker, Cane, Wheelchair, Crutches, etc.)? No PATIENT GENDER DATA: Female. status: : No status: NO. PATIENT RELEVANT IMPLANT DATA REVIEWED: Not Applicable PATIENT PRESENTS WITH AN IMPLANTABLE OR ATTACHED SAFETY COORDINATOR: No RADIOLOGY DEPARTMENT: Bone Density PERIPHERAL IV DATA: Not applicable SIGNED BY: RT Iesha(R) September 28, 2023 11:23 AM documented in this encounterLake [facility]02-05-2024 Miscellaneous Notes* Telephone Encounter - Ana Luisa Cruz LPN - 09/27/2023 12:17 PM EST This is not covered for weight loss. This is covered if a pt is diabetic and has tried multiple formularies medicines for diabetes. No PA needed it's not covered. Pt notified via my chart. * Telephone Encounter - Gigi Ferrera RN - 09/27/2023 12:08 PM EST Prior Authorization Documentation Prior authorization requested for the following medication: Medication: Mounjaro inj Provider: [employer] Insurance Company Name: [facility] [employer] Phone number: [phone] Patient ID number: [id number] [facility]: [facility] documented in this encounterLake [facility]02-02-2024 Instructions* Patient Instructions* Javier Truong APRN.SLURRY TANK TENDER - 09/24/2023 12:44 PM EST Stop taking Victoza once this prescription is complete. Start taking Mounjaro the following week. This is a similar medication. The dose will be titrated upward as needed. BONE MINERAL DENSITY PATIENT INSTRUCTIONS Bone mineral density testing measures the amount of calcium in certain parts of your bones. This information determines how strong your bones are. The test is used to detect osteoporosis, a disease in which the bone's mineral content and density are low, increasing a person's risk of fractures. Thelumbar spine (lower back) and the hip are the skeletal sites usually examined. For the test, remember that: 1. You cannot take this test if you are . 2. Eat a normal diet on the day of the test. 3. Take your medications as you normally would. 4. DO NOT take calcium supplements (such as Tums) for 24 hours before the test. 5. On the day of the test, leave valuables (jewelry or credit cards) at home. 6. The test should be performed prior to oral, rectal or IV contrast studies, or at least 7 days after any of these studies. For the test, you may be asked to wear a hospital gown. You will lie on your back, on a padded table, in a comfortable position. Generally, you can resume your usual activities immediately. documented in this encounterLake [facility]02-02-2024 History of Present illness Narrative* Javier Truong APRN.CNS - 09/24/2023 12:20 PM EST SUBJECTIVE: RSV Vaccine(1 - 1-dose 60+ series) Never done Influenza Vaccine(1) due on 04/23/2023 Colorectal Cancer Screening due on 07/09/2023 Mammogram Screening due on 12/19/2023 PATRICIA Diez is a 58 year old female. PMH significant for ACTIVE PROBLEM LIST Copd With Chronic Bronchitis Essential Hypertension Hypopotassemia Major Depressive Disorder Insomnia, Unspecified Unspecified Venous (Peripheral) Insufficiency Bronchiectasis Without Acute Exacerbation (Hcc) Impaired Fasting Glucose Tobacco Use Nocturnal Oxygen Desaturation Family History of Colon Cancer Primary Insomnia Anxiety Diaphragm Paralysis Chest Pain Mixed Hyperlipidemia Class 2 Severe Obesity Due to Excess Calories With Serious Comorbidity and Body Mass Index (Bmi) of35.0 to 35.9 in Adult (Hcc) Presents today for 1 week follow-up of COPD exacerbation. She was seen by Cheyanne Cortez September 03, 2023. Treated with azithromycin and prednisone. She reported being ill after being exposed to RSV. Chest x-ray was completed showed mild patchy airspace opacities in the right lower lung that may represent atelectasis or developing infiltrates. Recommend follow-up imaging. Notes walking 2 miles daily. Has cut back on portion sizes and carbohydrates. Notes daughter is dog walker, has reviewed her diet. She is interested in a weight loss medication. Not interested in seeing dog walker at at this time. Notes previous medications did not seem to help much-phentermine and phentermine /topiramate. Presents today noting she feels improved. Without complaints regarding shortness of breath cough orwheezing at this time. Notes that Hilaria is no longer covered by her insurance and interested in alternate. Appears Rosio is covered by her insurance. Back pain seems somewhat improved. Review of Systems Constitutional: Negative. Objective BP 126/83 Pulse 94 Resp 16 Wt 80.3 kg (177 lb) SpO2 98% BMI 32.37 kg/m She was she is in Physical Exam Vitals and nursing note reviewed. Constitutional: Appearance: Normal appearance. HENT: Head: Normocephalic and atraumatic. Eyes: Conjunctiva/sclera: Conjunctivae normal. Neck: Thyroid: No thyromegaly. Vascular: Normal carotid pulses. No JVD. Cardiovascular: Rate and Rhythm: Normal rate and regular rhythm. Pulses: Carotid pulses are 2+ on the right side and 2+ on the left side. Radial pulses are 2+ on the right side and 2+ on the left side. Heart sounds: Normal heart sounds. Pulmonary: Effort: Pulmonary effort is normal. Breath sounds: Normal breath sounds. Abdominal: General: Bowel sounds are normal. Palpations: Abdomen is soft. Musculoskeletal: Right lower leg: No edema. Left lower leg: No edema. Skin: General: Skin is warm and dry. Neurological: General: No focal deficit present. Mental Status: She is alert. ALLERGIES Allergen Reactions Benadryl [Diphenhyd* Shortness of Breath She is not sure of the reaction. Was given it in the ER years ago. Penicillins Hives Medication predniSONE (DELTASONE) 20 mg tablet^Take 2 tablets by mouth once daily.^Disp: 8 tablet^Rfl: 1 meloxicam (MOBIC) 15 mg tablet^Take 1 tablet by mouth once daily. for pain. Take with food.^Disp: 30 tablet^Rfl: 0 cyclobenzaprine (FLEXERIL) 10 mg tablet^Take 1 tablet by mouth at bedtime as needed for muscle spasm or pain.^Disp: 30 tablet^Rfl: 0 sertraline (ZOLOFT) 100 mg tablet^Take 1 tablet by mouth once daily.^Disp: 90 tablet^Rfl: 1 LORazepam (ATIVAN) 0.5 mg^Take 1 tablet by mouth once daily as needed for up to 30 days.^Disp: 30 tablet^Rfl: 0 spironolactone (ALDACTONE) 25 mg tablet^Take 1 tablet by mouth once daily.^Disp: 90 tablet^Rfl: 1 buPROPion XL (WELLBUTRIN XL) 300 mg 24 hr tablet^Take 1 tablet by mouth once daily.^Disp: 90 tablet^Rfl: 3 albuterol (PROVENTIL) 2.5 mg /3 mL (0.083 %) nebulizer solution^Use 3 mL via nebulizer every 4 hours as needed for wheezing/shortness of breath. J44.9^Disp: 3 mL^Rfl: 5 ipratropium (ATROVENT) 0.02 % nebulizer solution^Use 2.5 mL via nebulizer four times a day as needed. OVER 5-15 MINUTES FOR WHEEZING OR SHORTNESS OF BREATH J44.9^Disp: 2.5 mL^Rfl: 5 furosemide (LASIX) 40 mg tablet^TAKE 1 TABLET BY MOUTH ONCE DAILY^Disp: 90 tablet^Rfl: 3 potassium chloride SR (MICRO-K) 10 mEq CR capsule^TAKE 1 CAPSULE BY MOUTH 3 TIMES DAILY^Disp: 270 capsule^Rfl: 3 insulin needles, DISPOSABLE, (PEN NEEDLE) 31 gauge x 01/05^Use one needle per dose. 1 per day.^Disp: 100 Each^Rfl: 11 albuterol HFA (VENTOLIN HFA) 90 mcg/actuation inhaler^Inhale 2 Puffs as instructed every 4 hours asneeded for wheezing/shortness of breath.^Disp: 54 g^Rfl: 3 rosuvastatin (CRESTOR) 5 mg tablet^Take 1 tablet by mouth daily at bedtime.^Disp: 90 tablet^Rfl: 3 traZODone (DESYREL) 100 mg tablet^TAKE 3 TABLETS EVERY DAY^Disp: 270 tablet^Rfl: 3 budesonide-formoterol (SYMBICORT) 160-4.5 mcg/actuation inhaler^Inhale 2 Puffs as instructed twice daily.^Disp: 1 Each^Rfl: 0 fluticasone (FLONASE) 50 mcg/actuation nasal spray^Use 2 Sprays in each nostril once daily. ADMINISTER 2 SPRAYS EACH NOSTRIL DAILY, RINSE MOUTH OUT AFTER USE.^Disp: 3 Each^Rfl: 3 nitroglycerin sublingual (NITROQUICK) 0.4 mg SL tablet^Dissolve 1 tablet under the tongue as needed. FOR CHEST PAIN. IF NO RELIEF CALL 911^Disp: 25 tablet^Rfl: 0 COMPOUNDED PRESCRIPTION^Oxygen 2L at night and as needed^Disp: ^Rfl: 11 tirzepatide (MOUNJARO) 2.5 mg/0.5 mL pen injector^Inject 2.5 mg subcutaneously one time a week.^Disp: 2 mL^Rfl: 2 nicotine (NICODERM CQ) 14 mg/24 hr^Apply 1 Patch as directed every 24 hours.^Disp: 28 Patch^Rfl: 0 nicotine (NICODERM CQ) 7 mg/24 hr^Apply 1 Patch as directed every 24 hours.^Disp: 14 Patch^Rfl: 1 (Patient not taking: Reported on 09/24/2023) COMPOUNDED PRESCRIPTION^Nebulizer machine DX: 496/143.90^Disp: 1^Rfl: 0 PAST MEDICAL HISTORY Diagnosis Date Allergies ASTHMA UNSPECIFIED 07/08/2005 Bronchiectasis (HCC) CHRONIC AIRWAY OBSTRUCTION NEC 07/08/2005 Depression Diaphragm dysfunction HYPERTENSION NOS 07/08/2005 Social History Tobacco Use Smoking status: Every Day Packs/day: 2.00 Years: 42.00 Additional pack years: 0.00 Total pack years: 84.00 Types: Cigarettes Start date: 1982 Smokeless tobacco: Never Tobacco comments: Did not smoke during pregnancies. Former 2 ppd smoker. Less than 1/2ppd 12/22/2022 Vaping Use Vaping Use: Never used Substance Use Topics Alcohol use: No Drug use: No Component Latest Ref Rng & Units 10/26/2022 12/24/2022 03/01/2023 09/02/2023 09/13/2023 WBC 3.70 - 11.00 k/uL 8.26 11.02 (H) RBC 3.90 - 5.20 m/uL 5.27 (H) 5.24 (H) Hemoglobin 11.5 - 15.5 g/dL 16.4 (H) 16.7 (H) Hematocrit 36.0 - 46.0 % 49.5 (H) 50.8 (H) MCV 80.0 - 100.0 fL 93.9 96.9 MCH 26.0 - 34.0 pg 31.1 31.9 MCHC 30.5 - 36.0 g/dL 33.1 32.9 RDW-CV 11.5 - 15.0 % 13.0 12.5 Platelet Count 150 - 400 k/uL 274 324 MPV 9.0 - 12.7 fL 9.6 9.9 Neut% % 50.0 63.9 Abs Neut (ANC) 1.45 - 7.50 k/uL 4.13 7.04 Lymph% % 34.3 24.0 Abs Lymph 1.00 - 4.00 k/uL 2.83 2.64 Ellsworth% % 5.9 6.5 Abs Ellsworth <0.87 k/uL 0.49 0.72 Eosin% % 8.6 4.4 Abs Eosin <0.46 k/uL 0.71 (H) 0.49 (H) Baso% % 1.1 0.9 Abs Baso <0.11 k/uL 0.09 0.10 Immature Gran % % 0.1 0.3 IMMATURE GRANS (ABS) <0.10 k/uL <0.03 0.03 NRBC /100 WBC 0.0 0.0 Absolute nRBC <0.01 k/uL <0.01 <0.01 DTYPE Auto Auto Protein, Total 6.3 - 8.0 g/dL 6.6 6.6 7.2 Albumin 3.9 - 4.9 g/dL 4.1 4.3 4.3 Calcium 8.5 - 10.2 mg/dL 10.1 10.0 10.1 10.4 (H) Bilirubin, Total 0.2 - 1.3 mg/dL 0.3 0.3 0.4 Alkaline Phosphatase 34 - 123 U/L 47 53 66 AST 13 - 35 U/L 22 15 17 ALT 7 - 38 U/L 22 16 15 Glucose 74 - 99 mg/dL 101 (H) 101 (H) 87 89 BUN 7 - 21 mg/dL 26 (H) 22 (H) 26 (H) 20 Creatinine 0.58 - 0.96 mg/dL 0.99 (H) 1.04 (H) 1.25 (H) 1.23 (H) Sodium 136 - 144 mmol/L 140 141 138 139 Potassium 3.7 - 5.1 mmol/L 4.0 4.2 4.6 4.5 Chloride 97 - 105 mmol/L 99 103 101 98 CO2 22 - 30 mmol/L 32 (H) 30 30 31 (H) Anion Gap 9 - 18 mmol/L 9 8 (L) 7 (L) 10 eGFR >=60 mL/min/1.73m 66 62 49 (L) 50 (L) Cholesterol, Total <200 mg/dL 222 (H) 137 111 Triglyceride <150 mg/dL 115 80 86 HDL Cholesterol >39 mg/dL 64 69 49 Non HDL Cholesterol <130 mg/dL 158 (H) 68 62 Fasting Time hrs 13 10 12 VLDL Cholesterol <30 mg/dL 23 16 17 TC:HDL Ratio <5.10 3.47 1.99 2.27 LDL Cholesterol <100 mg/dL 135 (H) 52 45 LDL:HDL Ratio <2.54 2.11 0.75 0.92 Hemoglobin A1C 4.3 - 5.6 % 5.4 Estimated Average Glucose mg/dL 108 NT Pro BNP <125 pg/mL 57 TSH 0.270 - 4.200 mIU/L 2.660 ASSESSMENT/PLAN: 1. Chronic midline low back pain without sciatica - ICD9: 724.2, 338.29, ICD10: M54.50, G89.29 (primary diagnosis) - DXA-AXIAL SKELETON - BD DXA TRABECULAR BONE SCORE (TBS) - CONSULT TO PHYSICAL THERAPY - VITAMIN D 25 HYDROXY 2. Encounter for screening for osteoporosis - ICD9: V82.81, ICD10: Z13.820 - DXA-AXIAL SKELETON - BD DXA TRABECULAR BONE SCORE (TBS) - VITAMIN D 25 HYDROXY 3. Asymptomatic postmenopausal status - ICD9: V49.81, ICD10: Z78.0 - DXA-AXIAL SKELETON - BD DXA TRABECULAR BONE SCORE (TBS) - VITAMIN D 25 HYDROXY 4. Class 2 severe obesity due to excess calories with serious comorbidity and body mass index (BMI)of 35.0 to 35.9 in adult (HCC) - ICD9: 278.01, V85.35, ICD10: E66.01, Z68.35 Would like to switch from Victoza to Mounjaro due to insurance Javier Truong APRN.SLURRY TANK TENDER Medical Decision Making: Problems: Moderate: 2+ stable chronic illnesses and 1+ chronic illnesses with change Data: Unique test(s) ordered: 1 Risk: Moderate: Drug management Medical Decision Making Level: 4 - Moderate documented in this encounterLake [facility]01-26-2024 History of Present illness Narrative* Florecita See RT(R) - 09/17/2023 1:20 PM EST Radiology Service Progress Note PATIENT NAME: Francis Diez DATE OF SERVICE: September 17, 2023 TIME: 1:22 PM PATIENT IDENTITY VERIFICATION COMPLETED USING TWO (2) IDENTIFIERS: Name and Date of confirmedby patient verbally. FALL SCREENING: Has the patient had 2 falls in the last year or 1 fall with injury or currently using an Ambulatory Assistive Device (Walker, Cane, Wheelchair, Crutches, etc.)? No PATIENT GENDER DATA: Female. status: : No status: NO. PATIENT RELEVANT IMPLANT DATA REVIEWED: Yes PATIENT PRESENTS WITH AN IMPLANTABLE OR ATTACHED SAFETY COORDINATOR: No RADIOLOGY DEPARTMENT: General X-ray: Exam(s) Completed: Spine X-Ray(s): Lumbar AP / LAT / L5-S1 PERIPHERAL IV DATA: Not applicable SIGNED BY: RT Kelsey(R) September 17, 2023 1:22 PM documented in this encounterLake County [facility]12-21-2023 Miscellaneous Notes* Telephone Encounter - Lexy Cowart Ma - 08/12/2023 7:13 AM EST Faxed. * Telephone Encounter - Cheyanne Cortez APRN.CNP - 08/12/2023 6:49 AM EST Form filled out. Please fax as requested. Thank you Cheyanne Cortez APRN.DICK * Telephone Encounter - Sona Otero MA - 08/10/2023 9:08 AM EST Verification of disability forms received from [facility]. Form placed on Cheyanne's desk for review and signature. Once signed, please fax to [phone]. Sona Otero MA documented in this encounterLake County [facility]10-25-2023 Miscellaneous Notes* Telephone Encounter - Alla Brandt - 06/16/2023 10:19 AM EDT Patient has been identified by name and date of : No Patient phones for refill(s): Requested Prescriptions Pending Prescriptions Disp Refills furosemide (LASIX) 40 mg tablet [Pharmacy Med Name: Furosemide 40 MG Oral Tablet] 90 tablet 3 Sig: TAKE 1 TABLET BY MOUTH ONCE DAILY potassium chloride SR (MICRO-K) 10 mEq CR capsule [Pharmacy Med Name: POTASSIUM 10MEQ CONTROLLED RELEASE CAPSULE SR CHLORIDE MC CP] 270 capsule 3 Sig: TAKE 1 CAPSULE BY MOUTH 3 TIMES DAILY Date of last office visit in primary care: 03/02/2023 Date of next office visit in primary care: 09/03/2023 Last 2 Encounter Wt Readings: Date: Wt: 03/02/2023 88.9 kg (196 lb) 12/22/2022 86.2 kg (190 lb) Previous labs/tests for medication: Not applicable Please advise. Thank you. Alla Brandt. documented in this encounterLake County [facility]09-30-2023 Miscellaneous Notes* Telephone Encounter - Steven Abdalla MD - 05/22/2023 11:08 PM EDT Prior Lorazepam prescriptions November and January had lasted more than 60 days. Will okay prescription for fill 05/23 (30 days since last filled) but if anxiety not staying well controlled follow up with Cheyanne sooner than August appointment. The following approved medication requests have been transmitted electronically. Requested Prescriptions Signed Prescriptions Disp Refills LORazepam (ATIVAN) 0.5 mg 15 tablet 0 Sig: Take 0.5 tablets by mouth once daily as needed for up to 30 days. Do not start before May 23, 2023. Authorizing Provider: STEVEN ABDALLA MD * Telephone Encounter - Alla Brandt - 05/21/2023 9:22 AM EDT Patient has been identified by name and date of : No Patient phones for refill(s): Requested Prescriptions Pending Prescriptions Disp Refills LORazepam (ATIVAN) 0.5 mg 15 tablet 0 Sig: Take 0.5 tablets by mouth once daily as needed for up to 30 days. Date of last office visit in primary care: 03/02/23 Last 2 Encounter Wt Readings: Date: Wt: 03/02/2023 88.9 kg (196 lb) 12/22/2022 86.2 kg (190 lb) Previous labs/tests for medication: Not applicable Please advise. Thank you. Alla Brandt [facility] Miscellaneous Notes* Telephone Encounter - Alla Brandt - 05/21/2023 8:58 AM EDT Patient has been identified by name and date of : No Patient phones for refill(s): Requested Prescriptions Pending Prescriptions Disp Refills sertraline (ZOLOFT) 50 mg tablet 90 tablet 1 Sig: Take 1 tablet by mouth once daily. Date of last office visit in primary care: 03/02/23 Last 2 Encounter Wt Readings: Date: Wt: 03/02/2023 88.9 kg (196 lb) 12/22/2022 86.2 kg (190 lb) Previous labs/tests for medication: Not applicable Please advise. Thank you. Alla Brandt documented in [facility] Miscellaneous Notes* Telephone Encounter - Steven Abdalla MD - 04/23/2023 1:02 AM EDT Looks like RX lasts about 1 to 2 months and last RX was January Has follow up with PCP HANK in August. Will okay RX Changed pended pharmacy to requested pharmacy The following approved medication requests have been transmitted electronically. Requested Prescriptions Signed Prescriptions Disp Refills LORazepam (ATIVAN) 0.5 mg 15 tablet 0 Sig: Take 0.5 tablets by mouth once daily as needed for up to 30 days. Authorizing Provider: STEVEN ABDALLA MD * Telephone Encounter - Zafar Jean Ma - 04/22/2023 1:52 PM EDT BELEN: 03/02/2023 NOV: 09/03/2023 Last refill: 01/28/2023 QTY: 15 Refills: 0 * Telephone Encounter - Melita Barrera - 04/22/2023 1:17 PM EDT Patient requesting refill for LORazepam (ATIVAN) 0.5 mg be sent to [facility] in [place] documented in this encounterL[facility] Miscellaneous Notes* Telephone Encounter - Florina Gallegos LPN - 03/03/2023 11:40 AM EDT Spoke with patient about test results. Patient verbalizes understanding. Florina Gallegos LPN * Telephone Encounter - Florina Gallegos LPN - 03/03/2023 9:41 AM EDT Voicemail msg left for patient to return call to [facility] to review test results. Office phone number provided. Letter and MyChart msg sent to patient as we are unable to reach by phone. Florina Gallegos LPN * Telephone Encounter - Florina Gallegos LPN - 03/02/2023 8:40 AM EDT Voicemail msg left for patient to return call to [facility] to review test results. Office phone number provided. Florina Gallegos LPN * Telephone Encounter - Florina Gallegos LPN - 03/01/2023 2:49 PM EDT Voicemail msg left for patient to return call to [facility] to review test results. Office phone number provided. Florina Gallegos LPN * Telephone Encounter - Florina Gallegos LPN - 03/01/2023 2:48 PM EDT ----- Message from Felicity Forrest APRN.PLANOGRAPH OPERATOR sent at 03/01/2023 2:41 PM EDT ----- Please call patient and notify her lab results. BMP is stable. Thank you! documented in this encounterL[facility]-11-2023 Miscellaneous Notes* Telephone Encounter - Shari Hawk RN - 03/02/2023 2:43 PM EDT Patient called and below results reviewed with the patient. Shari Hawk RN * Telephone Encounter - Shari Hawk RN - 03/02/2023 2:42 PM EDT Images from the original note were not included. ----- Message from Felicity Forrest APRN.CNP sent at 03/02/2023 2:15 PM EDT ----- Please call patient and notify her of lab results TSH is within normal range. Cholesterol has much better control LDL (bad cholesterol) improved from 135 to 52. Thank you! Felicity Forrest APRN.CNP [facility] Please call patient and notify her of echocardiogram results. Echocardiogram reveals largely normalstructure and function. Thank you! documented in this encounterL[facility]07-11-[facility]23 History of Present illness Narrative* Javier Truong APRN.CNS - 03/02/2023 8:37 AM EDT SUBJECTIVE: There are no preventive care reminders to display for this patient. HPI Francis Diez is a 58 year old female. PMH significant for ACTIVE PROBLEM LIST Copd With Chronic Bronchitis (Hcc) Essential Hypertension Hypopotassemia Major Depressive Disorder Insomnia, Unspecified Unspecified Venous (Peripheral) Insufficiency Bronchiectasis Without Acute Exacerbation (Hcc) Impaired Fasting Glucose Tobacco Use Nocturnal Oxygen Desaturation Family History of Colon Cancer Primary Insomnia Anxiety Diaphragm Paralysis Chest Pain Notes walking 2 miles daily. Has cut back on portion sizes and carbohydrates. Notes daughter is dog walker, has reviewed her diet. She is interested in a weight loss medication. Not interested in seeing dog walker at at this time. Notes previous medications did not seem to help much-phentermine and phentermine /topiramate. Seen by cardiology, stress test without ischemia. Additional imaging mammogram advised and completed, benign. Lung cancer screening completed. HTN: Without report of headache, chest pain, palpitations, dyspnea, peripheral edema, orthopnea, fatigue, and PND. Last 3 Encounter BP Readings: Date: BP: 12/22/2022 122/60 11/30/2022 114/84 11/27/2022 128/82 Hyperlipidemia. Ms. Diez reports doing well on current therapy. I already Her most recent lipid panels are: Cholesterol, Total (mg/dL) Date Value 03/01/2023 137 10/26/2022 222 04/19/2020 183 10/31/2014 177 HDL Cholesterol (mg/dL) Date Value 03/01/2023 69 10/26/2022 64 04/19/2020 57 10/31/2014 71 LDL Cholesterol (mg/dL) Date Value 03/01/2023 52 10/26/2022 135 04/19/2020 102 10/31/2014 86 Triglyceride (mg/dL) Date Value 03/01/2023 80 10/26/2022 115 04/19/2020 122 10/31/2014 101 COPD:without recent exacerbation Insomnia: stable Anxiety/Depression: stable Review of Systems Constitutional: Negative. Objective BP 120/78 Pulse (!) 56 Resp 16 Wt 88.9 kg (196 lb) SpO2 94% BMI 35.85 kg/m Physical Exam Vitals and nursing note reviewed. Constitutional: Appearance: Normal appearance. HENT: Head: Normocephalic and atraumatic. Eyes: Conjunctiva/sclera: Conjunctivae normal. Neck: Thyroid: No thyromegaly. Vascular: Normal carotid pulses. No JVD. Cardiovascular: Rate and Rhythm: Normal rate and regular rhythm. Pulses: Carotid pulses are 2+ on the right side and 2+ on the left side. Radial pulses are 2+ on the right side and 2+ on the left side. Heart sounds: Normal heart sounds. Pulmonary: Effort: Pulmonary effort is normal. Breath sounds: Normal breath sounds. Abdominal: General: Bowel sounds are normal. Palpations: Abdomen is soft. Musculoskeletal: Right lower leg: No edema. Left lower leg: No edema. Skin: General: Skin is warm and dry. Neurological: General: No focal deficit present. Mental Status: She is alert. ALLERGIES Allergen Reactions Benadryl [Diphenhyd* Shortness of Breath She is not sure of the reaction. Was given it in the ER years ago. Environmental [Othe* Shortness of Breath pollen Penicillins Hives Medication spironolactone (ALDACTONE) 25 mg tablet^Take 1 tablet by mouth once daily.^Disp: 90 tablet^Rfl: 1 potassium chloride SR (MICRO-K) 10 mEq CR capsule^Take 1 capsule by mouth three times daily.^Disp: 270 capsule^Rfl: 1 furosemide (LASIX) 40 mg tablet^Take 1 tablet by mouth once daily.^Disp: 90 tablet^Rfl: 1 nicotine (NICODERM CQ) 14 mg/24 hr^Apply 1 Patch as directed every 24 hours.^Disp: 28 Patch^Rfl: 0 nicotine (NICODERM CQ) 7 mg/24 hr^Apply 1 Patch as directed every 24 hours.^Disp: 14 Patch^Rfl: 1 albuterol HFA (VENTOLIN HFA) 90 mcg/actuation inhaler^Inhale 2 Puffs as instructed every 4 hours asneeded for wheezing/shortness of breath.^Disp: 54 g^Rfl: 3 rosuvastatin (CRESTOR) 5 mg tablet^Take 1 tablet by mouth daily at bedtime.^Disp: 90 tablet^Rfl: 3 sertraline (ZOLOFT) 50 mg tablet^Take 1 tablet by mouth once daily.^Disp: 90 tablet^Rfl: 1 traZODone (DESYREL) 100 mg tablet^TAKE 3 TABLETS EVERY DAY^Disp: 270 tablet^Rfl: 3 buPROPion XL (WELLBUTRIN XL) 300 mg 24 hr tablet^Take 1 tablet by mouth once daily.^Disp: 90 tablet^Rfl: 3 albuterol (PROVENTIL) 2.5 mg /3 mL (0.083 %) nebulizer solution^Use 3 mL via nebulizer every 4 hours as needed for wheezing/shortness of breath. J44.9^Disp: 3 mL^Rfl: 5 ipratropium (ATROVENT) 0.02 % nebulizer solution^Use 2.5 mL via nebulizer four times daily as needed. OVER 5-15 MINUTES FOR WHEEZING OR SHORTNESS OF BREATH J44.9^Disp: 2.5 mL^Rfl: 5 budesonide-formoterol (SYMBICORT) 160-4.5 mcg/actuation inhaler^Inhale 2 Puffs as instructed twice daily.^Disp: 1 Each^Rfl: 0 fluticasone (FLONASE) 50 mcg/actuation nasal spray^Use 2 Sprays in each nostril once daily. ADMINISTER 2 SPRAYS EACH NOSTRIL DAILY, RINSE MOUTH OUT AFTER USE.^Disp: 3 Each^Rfl: 3 nitroglycerin sublingual (NITROQUICK) 0.4 mg SL tablet^Dissolve 1 tablet under the tongue as needed. FOR CHEST PAIN. IF NO RELIEF CALL 911^Disp: 25 tablet^Rfl: 0 COMPOUNDED PRESCRIPTION^Oxygen 2L at night and as needed^Disp: ^Rfl: 11 COMPOUNDED PRESCRIPTION^Nebulizer machine DX: 496/143.90^Disp: 1^Rfl: 0 semaglutide, weight loss, (WEGOVY) 0.25 mg/0.5 mL pen injector^Inject 0.5 mL subcutaneously one time a week.^Disp: 4 Each^Rfl: 0 PAST MEDICAL HISTORY Diagnosis Date Allergies ASTHMA UNSPECIFIED 07/08/2005 Bronchiectasis (HCC) CHRONIC AIRWAY OBSTRUCTION NEC 07/08/2005 Depression Diaphragm dysfunction HYPERTENSION NOS 07/08/2005 Social History Tobacco Use Smoking status: Every Day Packs/day: 2.00 Years: 42.00 Total pack years: 84.00 Types: Cigarettes Start date: 1982 Smokeless tobacco: Never Tobacco comments: Did not smoke during pregnancies. Former 2 ppd smoker. Less than 1/2ppd 12/22/2022 Vaping Use Vaping Use: Never used Substance Use Topics Alcohol use: No Drug use: No Component Latest Ref Rng & Units 11/08/2021 11/25/2021 10/26/2022 12/24/2022 03/01/2023 WBC 3.70 - 11.00 k/uL 6.94 8.26 RBC 3.90 - 5.20 m/uL 4.85 5.27 (H) Hemoglobin 11.5 - 15.5 g/dL 14.5 16.4 (H) Hematocrit 36.0 - 46.0 % 45.9 49.5 (H) MCV 80.0 - 100.0 fL 94.6 93.9 MCH 26.0 - 34.0 pg 29.9 31.1 MCHC 30.5 - 36.0 g/dL 31.6 33.1 RDW-CV 11.5 - 15.0 % 13.0 13.0 Platelet Count 150 - 400 k/uL 262 274 MPV 9.0 - 12.7 fL 9.8 9.6 Neut% % 38.3 50.0 Abs Neut (ANC) 1.45 - 7.50 k/uL 2.66 4.13 Lymph% % 42.4 34.3 Abs Lymph 1.00 - 4.00 k/uL 2.94 2.83 Ellsworth% % 6.3 5.9 Abs [place]sworth <0.87 k/uL 0.44 0.49 Eosin% % 11.5 8.6 Abs Eosin <0.46 k/uL 0.80 (H) 0.71 (H) 0.71 (H) Baso% % 1.2 1.1 Abs Baso <0.11 k/uL 0.08 0.09 Immature Gran % % 0.3 0.1 IMMATURE GRANS (ABS) <0.10 k/uL <0.03 <0.03 NRBC /100 WBC 0.0 0.0 Absolute nRBC <0.01 k/uL <0.01 <0.01 DTYPE Auto Auto Protein, Total 6.3 - 8.0 g/dL 6.1 (L) 6.6 6.6 Albumin 3.9 - 4.9 g/dL 3.7 (L) 4.1 4.3 Calcium 8.5 - 10.2 mg/dL 9.1 10.1 10.0 Bilirubin, Total 0.2 - 1.3 mg/dL 0.2 0.3 0.3 Alkaline Phosphatase 34 - 123 U/L 43 47 53 AST 13 - 35 U/L 17 22 15 ALT 7 - 38 U/L 16 22 16 Glucose 74 - 99 mg/dL 83 101 (H) 101 (H) BUN 7 - 21 mg/dL 18 26 (H) 22 (H) Creatinine 0.58 - 0.96 mg/dL 0.84 0.99 (H) 1.04 (H) Sodium 136 - 144 mmol/L 141 140 141 Potassium 3.7 - 5.1 mmol/L 4.4 4.0 4.2 Chloride 97 - 105 mmol/L 104 99 103 CO2 22 - 30 mmol/L 29 32 (H) 30 Anion Gap 9 - 18 mmol/L 8 (L) 9 8 (L) eGFR >=60 mL/min/1.73m 81 66 62 Cholesterol, Total <200 mg/dL 180 222 (H) 137 Triglyceride <150 mg/dL 108 115 80 HDL Cholesterol >39 mg/dL 64 64 69 Non HDL Cholesterol <130 mg/dL 116 158 (H) 68 Fasting Time hrs 12 13 10 VLDL Cholesterol <30 mg/dL 22 23 16 TC:HDL Ratio <5.10 2.81 3.47 1.99 LDL Cholesterol <100 mg/dL 94 135 (H) 52 LDL:HDL Ratio <2.54 1.47 2.11 0.75 Magnesium 1.7 - 2.3 mg/dL 2.1 TSH 0.270 - 4.200 mIU/L 2.350 2.660 IgE <114.0 kU/l 30.7 NT Pro BNP <125 pg/mL 57 ASSESSMENT/PLAN: 1. Essential hypertension - ICD9: 401.9, ICD10: I10 (primary diagnosis) controlled - Continue current medications - Encouraged sodium restriction, DASH or Mediterranean diet - Recommend regular aerobic exercise - COMP METABOLIC PANEL - CBC + DIFF 2. Hypopotassemia - ICD9: 276.8, ICD10: E87.6 Stable, currently controlled, continue to monitor. 3. Episode of recurrent major depressive disorder, unspecified depression episode severity (HCC) - ICD9: 296.30, ICD10: F33.9 Stable, currently controlled, continue to monitor. 4. Insomnia, unspecified type - ICD9: 780.52, ICD10: G47.00 Stable, currently controlled, continue to monitor. 5. COPD with chronic bronchitis (HCC) - ICD9: 491.20, ICD10: J44.9 Followed by pulmonology 6. Primary insomnia - ICD9: 307.42, ICD10: F51.01 Stable, currently controlled, continue to monitor. 7. Hyperlipidemia, unspecified hyperlipidemia type - ICD9: 272.4, ICD10: E78.5 Stable, currently controlled, continue to monitor. Recommend a plant based diet such as Mediterranean diet with plenty of vegetables, fruits,whole grains, fish, chicken, turkey or plant proteins and routine exercise such as walking - LIPID PANEL BASIC 8. Class 2 severe obesity due to excess calories with serious comorbidity and body mass index (BMI)of 35.0 to 35.9 in adult (HCC) - ICD9: 278.01, V85.35, ICD10: E66.01, Z68.35 She reports weight gain despite diet changes and routine exercise. Interested in medication, noted phentermine did not seem to help much in the past - SEMAGLUTIDE (WEIGHT LOSS) 0.25 MG/0.5 ML SUBCUTANEOUS PEN INJECTOR - CONSULT [facility] - consider this Consider dog walker at later date if willing Javier Truong APRN.CNS Medical Decision Making: Problems: Moderate: 2+ stable chronic illnesses Risk: Moderate: Drug management Medical Decision Making Level: 4 - Moderate documented in this encounterL[facility]-10-2023 Miscellaneous Notes* Telephone Encounter - Yelitza Costa RN - 03/01/2023 1:47 PM EDT Pt. notified of results. Voiced understanding. Yelitza Costa RN * Telephone Encounter - Yelitza Costa RN - 03/01/2023 1:47 PM EDT ----- Message from Felicity Forrest APRN.PLANOGRAPH OPERATOR sent at 03/01/2023 1:18 PM EDT ----- Please call patient and notify her of stress testing results. Nuclear portion is without suggestionof ischemia. EKG portion is normal. Thank you! documented in this encounterLake [facility]07-10-2023 History of Present illness Narrative* Shari Hawk RN - 03/01/2023 10:03 AM EDT RADIOLOGY SERVICE PROGRESS NOTE SERVICE DATE: 03/01/2023 SERVICE TIME: 0845 PATIENT IDENTITY VERIFICATION COMPLETED USING TWO (2) METHODS: Patient confirmed name and Date of verbally. ALLERGIES AND MEDICATIONS REVIEWED BY: Shari Hawk RN PROCEDURE TYPE: NM STRESS: 0.4 mg of Lexiscan was administered IV at 0901 over 10 Seconds by Shari Hawk RN Reversal agent used:None LOT [id number] EXP 04/23/26 IV SITE: IV palced by nuclear tecnologist POST EXAM PIV STATUS: Discontinued by Family Consumer Scientist PATIENT DISCHARGED TO: Nuclear Medicine Department for post stress imaging A Diagnostic radioactive procedure has taken place, with no further precautions necessary other than routine body substance precautions. More information regarding radiation safety can be found usingthis link: [email or web address]%[email or web address]%[email or web address] SIGNATURE: Shari Hawk RN PATIENT NAME:Francis Diez DATE: 03/01/23 TIME: 10:04 AM documented in this encounterLake [facility]07-10-2023 History of Present illness Narrative* Inna Chaudhry RT(R) - 03/01/2023 7:30 AM EDT RADIOLOGY SERVICE PROGRESS NOTE SERVICE DATE: 03/01/2023 SERVICE TIME: 07:27 AM PATIENT IDENTITY VERIFICATION COMPLETED USING TWO (2) STANDARD IDENTIFIERS: Name and Date of confirmed by patient verbally FALL SCREENING: Has the patient had 2 falls in the last year or 1 fall with injury or currently using an Ambulatory Assistive Device (Walker, Cane, Wheelchair, Crutches, etc.)? No PATIENT GENDER DATA: .female : No ALLERGIES: Reviewed and unchanged MEDICATIONS REVIEWED: No PATIENT RELEVANT IMPLANT DATA REVIEWED: Not Applicable CREATININE: Creatinine Date Value Ref Range Status 03/01/2023 1.04 (H) 0.58 - 0.96 mg/dL Final 10/26/2022 0.99 (H) 0.58 - 0.96 mg/dL Final 11/08/2021 0.84 0.58 - 0.96 mg/dL Final Estimated Glomerular Filtration Rate Date Value Ref Range Status 03/01/2023 62 >=60 mL/min/1.73m Final Comment: Estimated Glomerular Filtration Rate (eGFR) is calculated using the 2020 CKD-EPI creatinine equation. This equation utilizes serum creatinine, sex, and age as parameters. The creatinine assay has traceable calibration to isotope dilution- mass spectrometry. Refer to KDIGO guidelines for clinical interpretation. In patients with unstable renal function, e.g. those with acute kidney injury, the eGFRmay not accurately reflect actual GFR. eGFR- Date Value Ref Range Status 03/26/2021 >60 Final P.O.C.T. RESULTS: N/A March 01, [address] PERFORMED: No IV SITE: Ambulatory: A peripheral IV was started in the Left antecubital site with a Angio cath: 22gauge. POST EXAM PIV STATUS: Discontinued PROCEDURE TYPE: NM Stress: 12.8 mCi [id number] was administered IV for Rest Imaging at 07:45 by Inna Chaudhry. 28.6 mCi [id number]-Zilkksn was administered IV for Stress Imaging at 09:01 by Inna Chaudhry. ADMINISTRATION TIME: PATIENT DISCHARGED TO: Ambulatory patient, left NM department area. A Diagnostic radioactive procedure has taken place, with no further precautions necessary other than routine body substance precautions. More information regarding radiation safety can be found usingthis link: [email or web address] 20Diagnostic%20Nuclear%20Medicine%[email or web address] SIGNATURE: RT Emre(Tyesha) PATIENT NAME: Francis Diez DATE: March 01, 2023 TIME: 1:52 PM PAGER/CONTACT #: documented in this encounterLake [facility]07-10-2023 Miscellaneous Notes* Result Encounter Note - Felicity Forrest APRN.CNP - 03/01/2023 7:30 AM EDT Please call patient and notify her of stress testing results. Nuclear portion is without suggestionof ischemia. EKG portion is normal. Thank you! documented in this encounterLake [facility]06-06-2023 History of Present illness Narrative* Connie Lay RDMS - 01/26/2023 3:00 PM EDT Radiology Service Progress Note PATIENT NAME: Francis Diez DATE OF SERVICE: January 26, 2023 TIME: 3:48 PM PATIENT IDENTITY VERIFICATION COMPLETED USING TWO (2) IDENTIFIERS: Name and Date of confirmedby patient verbally. FALL SCREENING: Has the patient had 2 falls in the last year or 1 fall with injury or currently using an Ambulatory Assistive Device (Walker, Cane, Wheelchair, Crutches, etc.)? No PATIENT GENDER DATA: Female. status: : No status: NO. PATIENT RELEVANT IMPLANT DATA REVIEWED: Not Applicable RADIOLOGY DEPARTMENT: Ultrasound PERIPHERAL IV DATA: Not applicable SIGNED BY: Connie Lay RDMS January 26, 2023 3:48 PM documented in this encounterLake County [facility]06-06-2023 History of Present illness Narrative* Fay Addison Mammo Matt - 01/26/2023 2:30 PM EDT Radiology Service Progress Note PATIENT NAME: Francis Diez DATE OF SERVICE: January 26, 2023 TIME: 2:00 PM PATIENT IDENTITY VERIFICATION COMPLETED USING TWO (2) IDENTIFIERS: Name and Date of confirmedby patient verbally. FALL SCREENING: Has the patient had 2 falls in the last year or 1 fall with injury or currently using an Ambulatory Assistive Device (Walker, Cane, Wheelchair, Crutches, etc.)? No PATIENT GENDER DATA: Female. status: : No status: NO. PATIENT RELEVANT IMPLANT DATA REVIEWED: Not Applicable RADIOLOGY DEPARTMENT: Mammography PERIPHERAL IV DATA: Not applicable SIGNED BY: Fermin Herro Matt January 26, 2023 2:00 PM documented in this encounterLake [facility]05-09-2023 History of Present illness Narrative* Rosi Melgoza RT(Tyesha) - 12/29/2022 8:40 AM EDT Radiology Service Progress Note PATIENT NAME: Francis Diez DATE OF SERVICE: December 29, 2022 TIME: 2:24 PM PATIENT IDENTITY VERIFICATION COMPLETED USING TWO (2) IDENTIFIERS: Name and Date of confirmedby patient verbally. FALL SCREENING: Has the patient had 2 falls in the last year or 1 fall with injury or currently using an Ambulatory Assistive Device (Walker, Cane, Wheelchair, Crutches, etc.)? No PATIENT GENDER DATA: Female. status: : No status: NO. PATIENT RELEVANT IMPLANT DATA REVIEWED: Yes RADIOLOGY DEPARTMENT: CT; Exam(s) Completed: Chest PERIPHERAL IV DATA: Not applicable SIGNED BY: RT Santhosh(R) December 29, 2022 2:24 PM documented in this encounterLake County [facility]05-08-2023 Miscellaneous Notes* Telephone Encounter - Sahri Hawk RN - 12/28/2022 10:32 AM EDT Patient called and verbalizes understanding of stress test instructions. Shari Hawk RN documented in this encounterLake County [facility]05-06-2023 Miscellaneous Notes* Telephone Encounter - Bee Lombardo Pss - 12/26/2022 8:45 AM EDT Patient returned office call was relayed message and voiced understand with no further questions. * Telephone Encounter - Yelitza Costa RN - 12/25/2022 2:05 PM EDT Left message for pt to return call. Please notify of below results and close encounter when pt calls back. Thank you. Yelitza Costa RN * Telephone Encounter - Yelitza Costa RN - 12/25/2022 2:05 PM EDT ----- Message from Felicity Forrest APRN.PLANOGRAPH OPERATOR sent at 12/25/2022 12:29 PM EDT ----- Please call patient and notify her of lab results. BNP is within normal limits and does not suggestvolume overload or heart failure. Thank you! documented in this encounterLake County [facility]05-04-2023 Procedure note* PARISH Stack - 12/24/2022 9:13 AM EDTAssociated Order(s): OXIMETRY WITH AMBULATION RESPIRATORY THERAPY OXIMETRY WITH AMBULATION Oximetry with Ambulation Test for This Encounter O2 Device O2 Adapter NC O2 Flow SpO2% HR Activity Ft Walked (ft) Time (min) Avg Speed (MPH) R/A 91 77 Resting R/A 88 92 Walking, usual pace 300 2.8 1.22 NC 2 94 73 Resting NC 2 93 87 Walking, usual pace 250 3 0.95 General Information Pulse Oximetry Site Total Time Spent O2 Supply Carrier Walking Assistance/Device R Index Finger -- 3 Wheel Walker -- NAME: PARISH Stack PATIENT NAME: Francis Diez DATE: December 24, 2022 TIME: 9:13 AM Comment: documented in this encounterLake County [facility]05-04-2023 History of Present illness Narrative* PARISH Stack - 12/24/2022 9:08 AM EDT PULM FUNCTION SMARTBLOCK: Provider: Aaron Moura APRN.CNP Assisting Tech: PARISH Stack Oximetry - Ambulation: 1 documented in this encounterLake County [facility]05-02-2023 Instructions* Patient Instructions* Aaron Moura APRN.CNP - 12/22/2022 1:[address] Lung Screen Results The CT scan that you will have done will show if you have any nodules (small spots) in your lungs that are suspicious for cancer. Around 90% of the patients who have this scan done are found to have at least one nodule. Most nodules are benign (not cancer) and of no harm to you at all. A specialistwill make a scientific evaluation about whether or not a nodule is worrisome based on its size and shape. The radiologist who will read your scan will put it into one of four categories: LUNG-RADS Category Description Overall Probability of Malignancy Recommended Follow-Up 1 Negative No nodules and definitely benign (non-cancerous nodules) Essentially 0. 1 Year - Follow-up Low dose CT 2 Benign Appearance or Behavior Nodules with a very low likelihood of becoming cancer due to size or lack of growth Less than 1% 1 Year - Follow-up Low dose CT 3 Probably Benign Probably benign finding, short term follow-up recommended 1 to 2% 6 Months - Follow-up CT 4 A,B,or X Suspicious Findings for which additional diagnostic testing and/or biopsy is recommended Will be calculated based on nodule characteristics. Dependent on what is seen on the exam. [address], PET, Biopsy At times, we may see something outside of the lungs on the scan that could be a health concern. Below are some of the most common findings: S Clinically Significant or Potentially Clinically Significant Findings (non lung cancer) Referral or additional imaging/labs depending on result. Approximately 10% of people receive this result. Coronary Artery Calcifications (Moderate or Severe) - Referral to cardiology or PCP for further work-up and recommendations. Thyroid Nodule - TSH level and Thyroid Ultrasound dependent on size, referral to endocrinology. Adrenal Nodule - Blood work and referral to endocrinology. Others Lung Cancer Screening hotline: [phone] Lung Cancer Screening [phone] Billing Questions: or [email or web address] Lung Cancer Screening Team: Rayna Wilkes CNP; Yelitza Howard PA-C; Rosi Almeida CNP; Cindy Mae CNP, Tamela Antunez PA-C, Saba Rg PA-C, Aaron Moura, PLANOGRAPH OPERATOR : [phone] documented in this encounterLake [facility] Miscellaneous Notes* Telephone Encounter - Estrella Hill LPN - 12/22/2022 1:07 PM EDT Images from the original note were not included. Felicity Forrest APRN.DICK You; [facility] 26 minutes ago (12:37 PM) STOP HCTZ. START 25 mg of aldactone once daily and repeat BMP in 1 week. Thank you, Felicity Forrest APRN.DICK Patient notified and verbalizes understanding. Estrella Hill LPN * Telephone Encounter - Estrella Hill LPN - 12/22/2022 8:53 AM EDT Patient in pulmonary department today for a visit. She was seen in [facility] ER on 12/20 for diverticulitis, but it was noted that her K level was 2.9 - she currently uses 30meq of potassium per day. She was supplemented with additional PO potassium, but not given additional instruction for medication management or follow up. Currently using Lasix 40mg/day and HCTZ 25mg/day. Please advise. Estrella Hill LPN documented in this encounterLake [facility]-02-[facility]23 History of Present illness Narrative* Aaron Moura APRN.DICK - 12/22/2022 8:44 AM EDT Images from the original note were not included. LUNG SCREENING VISIT PRIMARY CARE PHYSICIAN: Mariluz High MD PULMONARY PROVIDER: Florina Arenas PA-C Results will be communicated via letter or electronic record if applicable. Visit Delivery: In Person Patient Visit Type: New to Screening Current or Ex-smoker? [Current Exam Type: baseline LDCT Number of Pack Years: 84 Current smoker (=0) REQUESTER: The referring provider advised the patient to have screening. HISTORY OF PRESENT ILLNESS: Francis Diez is a 57 year old Active smoker who presents for lung screening. PMH significant for bronchiectasis s/p LLL resection for infection in 1992. Pt reports had recurrent pneumonia during pregnancies. Went to [place] to see lung specialist and he recommended the left lower lobectomy. Left diaphragmatic dysfunction. Has had trouble ever since. 11/23/2022 saw PCP cold like symptoms, increased oxygen needs. Normally wears oxygen at night. Was having increased need during the day. CXR bilateral pleural fluid and treated with levaquin and prednisone and lasix was increased. 12/18/2022 saw pulmonology oxygen levels were okay. Respiratory symptoms improving. x 3 days ago had abdominal discomfort and went to ER. Diagnosed as diverticulitis. On 2 different antibiotics. Able to eat slowly, small amounts of foods. Pain is not worsening. Coughing is improving. Now not productive. Still SOB even with minimal activity. Wheezing all the time. Pulse ox today 88%. Pt reports at home when she is walking around without oxygen it drops to 85%. She is not wearing oxygen with activity anymore because she does not want to become dependent on it. Her last oximetry with ambulation was in 2014. Continues with O2 @3 L at bedtime. Respiratory symptoms include: SOB: yes with getting up walking around Chest tightness: No Coughing: Yes: Without mucus Hemoptysis: No Wheezing: Yes, all the time, off and on worse Fever/Chills: No Recent Respiratory Infection: Yes, About a month ago started with cold symptoms. Unintentional weight loss: No Last 6 Encounter Wt Readings: Date: Wt: 12/22/2022 86.2 kg (190 lb) 12/18/2022 86.2 kg (190 lb) 11/30/2022 86.6 kg (191 lb) 11/27/2022 87.1 kg (192 lb) 11/23/2022 86.6 kg (191 lb) 10/26/2022 88 kg (194 lb) ECOG PERFORMANCE STATUS: 2- Ambulatory and capable of all selfcare; unable to carry out work activities. Up and about > 50% of waking hrs. Modified Medical Research [place] Dyspnea Scale (MMRC) I stop for breath after walking about 100 yards or after a few minutes on level ground 3 PAST MEDICAL HISTORY Diagnosis Date Allergies ASTHMA UNSPECIFIED 07/08/2005 Bronchiectasis (HCC) CHRONIC AIRWAY OBSTRUCTION NEC 07/08/2005 Depression Diaphragm dysfunction HYPERTENSION NOS 07/08/2005 PAST SURGICAL HISTORY Procedure Laterality Date LAPS SURG CHOLECYSTECTOMY W/CHOLANGIOGRAPHY 04-21-[address] [facility] [address] Guillen RMVL LUNG OTHER THAN PNEUMONECTOMY 1 LOBE LOBECT 1992 Left - bronchiectasis TOTAL ABDOMINAL HYSTERECT W/WO RMVL TUBE OVARY Hysterectomy, [facility]MEN[facility] FAMILY HISTORY Problem Relation Age of Onset other (Lung cancer [Other]) Mother Asthma Mother Diabetes Father Dialysis Father other (Myocardial infarction) Sister Colon Cancer Sister Colon Cancer Brother 2 brothers. other (Myocardial infarction) Brother albuterol HFA (VENTOLIN HFA) 90 mcg/actuation inhaler^Inhale 2 Puffs as instructed every 4 hours asneeded for wheezing/shortness of breath.^Disp: 54 g^Rfl: 3 rosuvastatin (CRESTOR) 5 mg tablet^Take 1 tablet by mouth daily at bedtime.^Disp: 90 tablet^Rfl: 3 sertraline (ZOLOFT) 50 mg tablet^Take 1 tablet by mouth once daily.^Disp: 90 tablet^Rfl: 1 potassium chloride SR (MICRO-K) 10 mEq CR capsule^Take 1 capsule by mouth twice daily.^Disp: 180 capsule^Rfl: 3 (Patient taking differently: Take 10 mEq by mouth three times daily.) traZODone (DESYREL) 100 mg tablet^TAKE 3 TABLETS EVERY DAY^Disp: 270 tablet^Rfl: 3 buPROPion XL (WELLBUTRIN XL) 300 mg 24 hr tablet^Take 1 tablet by mouth once daily.^Disp: 90 tablet^Rfl: 3 albuterol (PROVENTIL) 2.5 mg /3 mL (0.083 %) nebulizer solution^Use 3 mL via nebulizer every 4 hours as needed for wheezing/shortness of breath. J44.9^Disp: 3 mL^Rfl: 5 ipratropium (ATROVENT) 0.02 % nebulizer solution^Use 2.5 mL via nebulizer four times daily as needed. OVER 5-15 MINUTES FOR WHEEZING OR SHORTNESS OF BREATH J44.9^Disp: 2.5 mL^Rfl: 5 LORazepam (ATIVAN) 0.5 mg^Take 0.5 tablets by mouth once daily as needed for up to 30 days.^Disp: 15 tablet^Rfl: 0 budesonide-formoterol (SYMBICORT) 160-4.5 mcg/actuation inhaler^Inhale 2 Puffs as instructed twice daily.^Disp: 1 Each^Rfl: 0 fluticasone (FLONASE) 50 mcg/actuation nasal spray^Use 2 Sprays in each nostril once daily. ADMINISTER 2 SPRAYS EACH NOSTRIL DAILY, RINSE MOUTH OUT AFTER USE.^Disp: 3 Each^Rfl: 3 hydroCHLOROthiazide (HYDRODIURIL, ESIDRIX) 25 mg tablet^Take 1 tablet by mouth once daily.^Disp: 90tablet^Rfl: 3 furosemide (LASIX) 20 mg tablet^TAKE 1 TABLET BY MOUTH ONCE DAILY^Disp: 90 tablet^Rfl: 3 (Patient taking differently: Take 40 mg by mouth once daily.) nitroglycerin sublingual (NITROQUICK) 0.4 mg SL tablet^Dissolve 1 tablet under the tongue as needed. FOR CHEST PAIN. IF NO RELIEF CALL 911^Disp: 25 tablet^Rfl: 0 COMPOUNDED PRESCRIPTION^Oxygen 2L at night and as needed^Disp: ^Rfl: 11 COMPOUNDED PRESCRIPTION^Nebulizer machine DX: 496/143.90^Disp: 1^Rfl: 0 ALLERGIES Allergen Reactions Benadryl [Diphenhyd* Shortness of Breath She is not sure of the reaction. Was given it in the ER years ago. Environmental [Othe* Shortness of Breath pollen Penicillins Hives The medications and allergies were reviewed and reconciled for this patient and deemed current. Lung Cancer Risk Factors: 1.Tobacco Use: Start Age 16, Quit Age: N/A, Average packs per day 2, Pack Years 84 2. Passive Smoke Exposure: Yes, as a Child 3. Personal hx of malignancy: No, Type of Cancer: 4. Significant exposures (1 year or more of exposure): Asbestos, Dusts, 5. Race: White 6. Education: Less than High School 7. BMI:Body mass index is 34.75 kg/m . Patient-entered Height: 5'4 Patient-entered Weight: 190 pounds 8. COPD: Yes 9. Pneumonia in the past 5 years: Yes 10. Is there a history of lung cancer in a first degree relative? Yes 11. Is there a history of lung cancer in a non-first degree relative? Yes 12. Is there a history of any other cancer in a first degree relative? Yes Health Maintenance Immunization History Administered Date(s) Administered TD Adult 01/13/2006 influenza (IIV4) vaccine, age 6 mo - 64 yr, quadrivalent (AFLURIA, FLULAVAL, FLUZONE) 10/13/2019 06/04/2020 influenza (IIV4) vaccine, age 6 mo - 64 yr, quadrivalent, PF (AFLURIA, FLUARIX, FLULAVAL, FLUZONE) 05/02/2018 influenza vaccine, unspecified formulation 06/23/2007 06/16/2022 pneumococcal (PCV7) vaccine, 7 valent (PREVNAR 7) 12/15/2006 pneumococcal (PPV23) vaccine, 23 valent (PNEUMOVAX 23) 10/26/2014 Colonoscopy: 12/27/2015 Mammogram: 12/21/2022 DATA REVIEW I have directly visualized the testing documented: 12/05/2021 CT Chest Prior Imaging: Last CT/CTA Chest/Lungs CT CHEST WO IVCON Exam End: 12/05/2021 8:27 AM (Final result) Narrative: * * *Final Report* * * DATE OF EXAM: Dec 05 2021 8:27AM [facility] 0541 - CT CHEST WO IVCON / PROCEDURE REASON: Shortness of breath * * * * Physician Interpretation * * * * EXAMINATION: CHEST CT WITHOUT CONTRAST CLINICAL HISTORY: Shortness of breath Bronchiectasis, mosaic attentuation Technique: Spiral CT acquisition of the chest from the thoracic inlet to the upper abdomen without contrast. MQ: [id number] CT Radiation dose: Integrated Dose-length product (DLP) for this visit = 283 mGy*cm CT Dose Reduction Employed: Automated exposure control(AEC) and iterative recon Comparison: CT chest 12/03/2014 RESULT: Limitations: None. Lines, tubes, and devices: None. Lung parenchyma and airways: Elevation of the left hemidiaphragm. Linear areas of scarring or atelectasis in the medial right middle lobe and right lower lobe. No consolidation. Stable 4 mm nodule posterior left lower lobe (6:67). No new suspicious pulmonary nodule. The central airways are patent. Pleural space: No pleural effusion. No pleural thickening. Lower neck, lymph nodes, and mediastinum: The imaged thyroid gland is normal. No lymphadenopathy in the supraclavicular, axillary, mediastinal, or hilar regions. Heart, pericardium, and thoracic vessels: The thoracic aorta and main pulmonary artery are normal in caliber. The cardiac chambers are normal in size. No coronary artery atherosclerotic calcifications are noted, although the study is not optimized for coronary assessment. No pericardial effusion or thickening. Bones and soft tissues: No destructive bone lesion. Degenerative disease of the thoracic spine. Chest wall is unremarkable. Upper abdomen: No acute abnormality in the imaged upper abdomen. Residence Manager (topogram) images: No additional findings. Impression: IMPRESSION: 1. No acute chest pathology 2. Unchanged elevation of the left hemidiaphragm 3. Again noted is scarring or atelectasis in the medial right middle lobe and right lower lobe Tire Buffer: JIHAN Transcribe Date/Time: Dec 05 2021 9:25A Dictated by : SETH COUGHLIN MD This examination was interpreted and the report reviewed and electronically signed by: SETH COUGHLIN MD on Dec 05 2021 9:34AM EST Last CT Chest - Impression Only CT CHEST WO IVCON Exam End: 12/05/2021 8:27 AM (Final result) Impression: IMPRESSION: 1. No acute chest pathology 2. Unchanged elevation of the left hemidiaphragm 3. Again noted is scarring or atelectasis in the medial right middle lobe and right lower lobe ... Last XR Chest - Impression Only XR CHEST 2V FRONTAL/LAT Exam End: 12/18/2022 10:55 AM (Final result) Impression: IMPRESSION: Stable chest Tire Buffer: [facility] Transcribe Date/Time: Dec 21 2022 1:55P ... Pulmonary Function Testing: SPIROMETRY WITH DILATOR IF OBSTRUCTED ([id number]) - ordered on 11/25/21 [facility] [address], [place] [address] Test Date: 2021-11-25 Pat Name: FRANCIS DIEZ Department: Room: Gender: Female Supervisor Fertilizer: : 1965 Requested By: Order Number: [id number] Reading MD: Penny Garner M.D. Interpretive Statements SP-ATS/ERS acceptability and repeatability standards for spirometry met. SP- Medications and Allergies were reviewed for possible drug interactions per policy. No contraindications or sensitivities were noted. RT meds taken: Symbicort, Albuterol 2.5 hours before testing. IMPRESSION: Spirometry shows no obstruction.The reduced FVC suggests restriction. Recommend lung volumes if clinically indicated. Electronically Signed On 11-25-2021 16:15:22 EDT by Penny Garner M.D. Site: WO ID: [id number] Name: FRANCIS DIEZ Visit Date: 11/25/2021 Doctor: Supervisor Fertilizer: Thierno Carlson Age: 56 Date of : 1965 Gender: Female Race: White Height: 62.00 in Weight: 187.00 lbs BSA: 1.858 Diagnosis: Dyspnea: Cough: Wheeze: Tobacco Product: Cigarette Years Smoked: 20.0 Packs/Day: .5 Years Quit: Medications: Comments: SP-ATS/ERS acceptability and repeatability standards for spirometry met. SP- Medications and Allergies were reviewed for possible drug interactions per policy. No contraindications or sensitivities were noted. RT meds taken: Symbicort, Albuterol 2.5 hours before testing. Review Status: Not Reviewed PRE-BRONCH POST-BRONCH Pred LLN ULN Actual %Pred Actual %Chng SPIROMETRY FVC (L) 2.98 2.27 3.73 1.56 52 FEV1 (L) 2.37 1.80 2.92 1.14 48 FEV1/FVC 0.80 0.68 0.90 0.73 91 FEF25 (L/sec) 2.90 FEF50 (L/sec) 3.21 1.60 4.82 1.09 34 FEF75 (L/sec) 0.64 0.26 1.46 0.26 40 XTL39-13 (L/sec) 2.23 1.15 3.65 0.78 35 PEF L/s (L/sec) 6.06 4.45 7.66 3.93 64 FIVC (L) 1.50 FIF50 (L/sec) 2.63 PIF (L/sec) 2.77 Time (sec) 5.61 BEVERLY (L) 0.04 FET PEF (sec) 0.05 PHYSICAL EXAM: BP 122/60 Pulse 93 Resp 20 Wt 86.2 kg (190 lb) SpO2 88% BMI 34.75 kg/m Deferred ASSESSMENT and RECOMMENDATIONS: 1. Screening for lung cancer: Six year risk for lung cancer: 8.83% I have determined that the patient is eligible for a low dose CT based on age, absence of signs or symptoms of lung cancer, and total pack years: Yes. The patient and I engaged in shared decision making, including the use of one or more decision aids, to include benefits, harms, follow-up diagnostic testing, over-diagnosis, false positive rate, andtotal radiation exposure. The patient understands and feels comfortable with it: Yes. The patient was counseled on the importance of adherence to annual LDCT lung cancer screening, impact of comorbidities and ability or willingness to undergo diagnosis and treatment. The patient understands and feels comfortable with it:Yes. 2. Nicotine dependence: The patient was counseled on the importance of smoking cessation if currentsmoker and, if appropriate, offered additional tobacco cessation counseling services - Smoking Cessation Counseling. SMOKING CESSATION COUNSELING Smoking cessation methods including Nicotine Replacement Therapies and Behavior Modification were discussed with the patient and assistance offered. After discussing available options patient decidedto try Nicotine replacement therapy patches. I have discussed instructions for use as well as potential side effects and things to watch for. The medical conditions adversely affected by cigarette use include:COPD, Emphysema, Lung Cancer, and heart and peripheral vascular disease. The patient is currently ready to quit. I personally spent 5 minutes in counseling. The time spent in smoking cessation counseling is exclusive of any other counseling during this visit. 3. Hypoxia-for now monitor oxygen at home and use it with activity if needed. Will get oximetry with ambulation study to see if we can get her portable oxygen as needed. Keep follow up as scheduled with pulmonology. Aaron Moura APRN.CNP NPI #: December 22, 2022 8:45 AM documented in this encounterLake County [facility]05-01-2023 Miscellaneous Notes* Telephone Encounter - Lexy Cowart Ma - 12/21/2022 9:50 AM EDT Patient notified and number given to schedule. * Telephone Encounter - Cheyanne Cortez APRN.CNP - 12/21/2022 9:40 AM EDT Please let patient know that they are recommending additional views of her left breast as there justice asymmetrical area. Thank you Cheyanne Cortez APRN.CNP documented in this encounterLake County [facility]04-28-2023 History of Present illness Narrative* Shaniqua Stanley RT(R) - 12/18/2022 11:10 AM EDT Radiology Service Progress Note PATIENT NAME: Francis Diez DATE OF SERVICE: December 18, 2022 TIME: 10:50 AM PATIENT IDENTITY VERIFICATION COMPLETED USING TWO (2) IDENTIFIERS: Name and Date of confirmedby patient verbally. FALL SCREENING: Has the patient had 2 falls in the last year or 1 fall with injury or currently using an Ambulatory Assistive Device (Walker, Cane, Wheelchair, Crutches, etc.)? No PATIENT GENDER DATA: Female. status: : No status: NO. PATIENT RELEVANT IMPLANT DATA REVIEWED: Not Applicable RADIOLOGY DEPARTMENT: General X-ray: Exam(s) Completed: Chest X-Ray PERIPHERAL IV DATA: Not applicable SIGNED BY: RT Jovan(R) December 18, 2022 10:50 AM documented in this encounterLake County [facility]04-28-2023 History of Present illness Narrative* Elo Garcia RT(R) - 12/18/2022 10:50 AM EDT Radiology Service Progress Note PATIENT NAME: Francis Diez DATE OF SERVICE: December 18, 2022 TIME: 10:40 AM PATIENT IDENTITY VERIFICATION COMPLETED USING TWO (2) IDENTIFIERS: Name and Date of confirmedby patient verbally. FALL SCREENING: Has the patient had 2 falls in the last year or 1 fall with injury or currently using an Ambulatory Assistive Device (Walker, Cane, Wheelchair, Crutches, etc.)? No PATIENT GENDER DATA: Female. status: : No status: NO. PATIENT RELEVANT IMPLANT DATA REVIEWED: Not Applicable RADIOLOGY DEPARTMENT: Mammography PERIPHERAL IV DATA: Not applicable SIGNED BY: RT Jose(R) December 18, 2022 10:40 AM documented in this encounter[address]28-2023 History of Present illness Narrative* Florina Arenas PA-C - 12/18/2022 9:50 AM EDT Patient: Francis Diez PCP: Mariluz High MD CC: COPD HPI: Francis Diez 57 year old female current daily smoker, 16 pack years with PMH significant for bronchiectasis s/p LLL resection for infection in 1992, left diaphragmatic dysfunction, chronic asthmatic bronchitis, COPD and HTN. Since the last Pulmonary Clinic visit 07/20/2022, the patient was evaluated by PCP on 11/23 for annual physical, however, she was ill with respiratory concerns of SOB and increased oxygen needs. Typically only wears oxygen at night, but was requiring 2L during the day. CXR demonstrated small bilateral pleural fluid collections and stable elevation of left hemidiaphragm. Treated with Levaquin and Prednisone for AECOPD. She noted some improvement after completing treatment. Lasix increased to 40 mg daily secondary to pleural effusions. Today, patient states she is returning to baseline. Daily cough that is primarily in the morning. No sputum or hemoptysis. Frequent wheezing. No dyspnea at rest. Exertional dyspnea with climbing stairs. Has improved since being treated with antibiotics and Prednisone. Lower extremity edema improved with higher dose of Lasix. Claims to be consistently compliant with prescribed maintenance Rx: Symbicort and Singulair. Morning and evening rescue bronchodilator use. Currently wearing 3L supplemental oxygen at night. Continuing to smoke daily. States she has decreased, but does not seem to have a desire to quit. PAST MEDICAL HISTORY Diagnosis Date Allergies ASTHMA UNSPECIFIED 07/08/2005 Bronchiectasis (HCC) CHRONIC AIRWAY OBSTRUCTION NEC 07/08/2005 Depression Diaphragm dysfunction HYPERTENSION NOS 07/08/2005 Allergies: Benadryl [Diphenhyd* Shortness of Breath Comment:She is not sure of the reaction. Was given it in the ER years ago. Environmental [Othe* Shortness of Breath Comment:pollen Penicillins Hives rosuvastatin (CRESTOR) 5 mg tablet^Take 1 tablet by mouth daily at bedtime.^Disp: 90 tablet^Rfl: 3 sertraline (ZOLOFT) 50 mg tablet^Take 1 tablet by mouth once daily.^Disp: 90 tablet^Rfl: 1 potassium chloride SR (MICRO-K) 10 mEq CR capsule^Take 1 capsule by mouth twice daily.^Disp: 180 capsule^Rfl: 3 (Patient taking differently: Take 10 mEq by mouth three times daily.) traZODone (DESYREL) 100 mg tablet^TAKE 3 TABLETS EVERY DAY^Disp: 270 tablet^Rfl: 3 buPROPion XL (WELLBUTRIN XL) 300 mg 24 hr tablet^Take 1 tablet by mouth once daily.^Disp: 90 tablet^Rfl: 3 albuterol (PROVENTIL) 2.5 mg /3 mL (0.083 %) nebulizer solution^Use 3 mL via nebulizer every 4 hours as needed for wheezing/shortness of breath. J44.9^Disp: 3 mL^Rfl: 5 ipratropium (ATROVENT) 0.02 % nebulizer solution^Use 2.5 mL via nebulizer four times daily as needed. OVER 5-15 MINUTES FOR WHEEZING OR SHORTNESS OF BREATH J44.9^Disp: 2.5 mL^Rfl: 5 predniSONE (DELTASONE) 20 mg tablet^Take 2 tablets by mouth once daily.^Disp: 10 tablet^Rfl: 0 (Patient not taking: Reported on 11/30/2022) LORazepam (ATIVAN) 0.5 mg^Take 0.5 tablets by mouth once daily as needed for up to 30 days.^Disp: 15 tablet^Rfl: 0 budesonide-formoterol (SYMBICORT) 160-4.5 mcg/actuation inhaler^Inhale 2 Puffs as instructed twice daily.^Disp: 1 Each^Rfl: 0 fluticasone (FLONASE) 50 mcg/actuation nasal spray^Use 2 Sprays in each nostril once daily. ADMINISTER 2 SPRAYS EACH NOSTRIL DAILY, RINSE MOUTH OUT AFTER USE.^Disp: 3 Each^Rfl: 3 hydroCHLOROthiazide (HYDRODIURIL, ESIDRIX) 25 mg tablet^Take 1 tablet by mouth once daily.^Disp: 90tablet^Rfl: 3 furosemide (LASIX) 20 mg tablet^TAKE 1 TABLET BY MOUTH ONCE DAILY^Disp: 90 tablet^Rfl: 3 (Patient taking differently: Take 40 mg by mouth once daily.) albuterol HFA (VENTOLIN HFA) 90 mcg/actuation inhaler^Inhale 2 Puffs as instructed every 4 hours asneeded for wheezing/shortness of breath.^Disp: 54 g^Rfl: 3 nitroglycerin sublingual (NITROQUICK) 0.4 mg SL tablet^Dissolve 1 tablet under the tongue as needed. FOR CHEST PAIN. IF NO RELIEF CALL 911^Disp: 25 tablet^Rfl: 0 COMPOUNDED PRESCRIPTION^Oxygen 2L at night and as needed^Disp: ^Rfl: 11 COMPOUNDED PRESCRIPTION^Nebulizer machine DX: 496/143.90^Disp: 1^Rfl: 0 Social History Tobacco Use Smoking status: Every Day Packs/day: 0.50 Years: 32.00 Pack years: 16.00 Types: Cigarettes Start date: 1982 Smokeless tobacco: Never Tobacco comments: Did not smoke during pregnancies. Former 2 ppd smoker. Less than 1/2ppd 07/20/22 Vaping Use Vaping Use: Never used Substance Use Topics Alcohol use: No Drug use: No Family History Problem Relation Age of Onset other (Lung cancer [Other]) Mother Asthma Mother Diabetes Father Dialysis Father other (Myocardial infarction) Sister Colon Cancer Sister Colon Cancer Brother 2 brothers. other (Myocardial infarction) Brother PAST SURGICAL HISTORY Procedure Laterality Date LAPS SURG CHOLECYSTECTOMY W/CHOLANGIOGRAPHY 04-21-13 [facility] [address] Guillen RMVL LUNG OTHER THAN PNEUMONECTOMY 1 LOBE LOBECT 1992 Left - bronchiectasis TOTAL ABDOMINAL HYSTERECT W/WO RMVL TUBE OVARY Hysterectomy, [facility] I reviewed the past medical history, family history, social history and surgical history with changes noted above and updated in EMR. IMMUNIZATIONS Prevnar - 12/15/2006 Pneumovax - 10/26/2014 Influenza - 06/16/2022 COVID-19 - xx ROS: General: No fevers, chills or night sweats. No unintentional weight loss. Appetite good. Eyes, Ears, nose, throat: No post nasal drip, rhinorrhea, purulent nasal discharge. No epistaxis. No hoarseness. Vision stable. Cardiac: No angina, orthopnea. Resp: See HPI. GI: No heartburn, dysphagia. Musculoskeletal: No pain. Neuro: No headache, focal weakness, tremor. Skin: No rash. Otherwise negative. PHYSICAL EXAMINATION: BP (P) 112/74 Pulse 75 Resp 17 Wt 86.2 kg (190 lb) SpO2 94% BMI 34.75 kg/m Gen: No acute distress. Cooperative with examination. HEENT: Normocephalic. Sclera, conjunctiva clear. Oral hygeine and dentition good. No thrush. Resp: No stridor, accessory respiratory muscle use, supra-sternal or intercostal retractions. Scattered wheezes. No crackles. CV: Regular rythm. Heart tones normal. Radial pulses normal. Abd: Non distended. MSK: No kyphoscoliosis. Ext: Warm and well perfused. No clubbing, cyanosis. Trace bilateral edema. Skin: No rash, ecchymoses. Neuro: Mental status normal. Affect normal. No tremor. DATA: PFT, 11/25/2021 IMPRESSION: Spirometry shows no obstruction.The reduced FVC suggests restriction. Recommend lung volumes if clinically indicated. Electronically Signed On 11-25-2021 16:15:22 EDT by Penny Garner M.D. Exhaled nitric oxide (Dorie), 11/25/2021: 5 (normal < 20). Component Latest Ref Rng & Units 11/25/2021 Abs Eosin <0.46 k/uL 0.71 (H) IgE <114.0 kU/l 30.7 CT chest, 12/05/2021 IMPRESSION: 1. No acute chest pathology 2. Unchanged elevation of the left hemidiaphragm 3. Again noted is scarring or atelectasis in the medial right middle lobe and right lower lobe Comparison: CT chest 12/03/2014 RESULT: Limitations: None. Lines, tubes, and devices: None. Lung parenchyma and airways: Elevation of the left hemidiaphragm. Linear areas of scarring or atelectasis in the medial right middle lobe and right lower lobe. No consolidation. Stable 4 mm nodule posterior left lower lobe (6:67). No new suspicious pulmonary nodule. The central airways are patent. Pleural space: No pleural effusion. No pleural thickening. Lower neck, lymph nodes, and mediastinum: The imaged thyroid gland is normal. No lymphadenopathy in the supraclavicular, axillary, mediastinal, or hilar regions. Heart, pericardium, and thoracic vessels: The thoracic aorta and main pulmonary artery are normal in caliber. The cardiac chambers are normal in size. No coronary artery atherosclerotic calcifications are noted, although the study is not optimized for coronary assessment. No pericardial effusion or thickening. Bones and soft tissues: No destructive bone lesion. Degenerative disease of the thoracic spine. Chest wall is unremarkable. Upper abdomen: No acute abnormality in the imaged upper abdomen. Residence Manager (topogram) images: No additional findings. ASSESSMENT/PLAN: 1. Asthma-COPD overlap syndrome (HCC) - ICD9: 493.20, ICD10: J44.9 (primary diagnosis) Continue Symbicort 2 inhalations twice daily. Rinse mouth after each use to help prevent oral thrush. Patient has resumed Singulair. Albuterol HFA inhaler, 2 inhalations 10-15 minutes prior to activities associated with shortness ofbreath, and as needed for rescue relief of shortness of breath or wheezing, up to 4 times daily. Continue Flonase nasal spray. Smoking cessation is huston. 2. Pleural effusion - ICD9: 511.9, ICD10: J90 Continue with Lasix daily. Repeat CXR in 1-2 weeks. - XR CHEST 2V FRONTAL/LAT 3. Current smoker - ICD9: 305.1, ICD10: F17.200 Cessation encouraged. Physiologic and physical aspects of tobacco addiction as well as strategies for quitting were discussed. Counseling was given focusing on the harmful effects of this addiction especially given the patient's medical condition(s) which will be worsened because of the chemicals in tobacco. - CONSULT LUNG CANCER SCREENING CLINIC 4. Diaphragm dysfunction - ICD9: 519.4, ICD10: J98.6 Portions of this documentation were copied and pasted from previous office visit notes in order to provide a cohesive continuity of the history. The note has been reviewed and edited and updated as necessary. Florina Arenas PA-C documented in this encounterL[facility] Instructions* Patient Instructions* Felicity Forrest APRN.PLANOGRAPH OPERATOR - 11/30/2022 9:12 AM EDT Heart Disease in Women Is heart disease a problem for women? Heart disease is the leading cause of of [place] women. More women from heart disease than from cancer. A heart attack can happen when there are problems with the blood vessels that bring blood to the heart (the coronary arteries). For example, fatty deposits called plaque may build up in the coronary arteries and make them narrower. The narrowing decreases blood flow to the heart. Plaque also increases the chance that blood clots may form and block a blood vessel, which can cause a heart attack orstroke. In the first year after a heart attack, women have an increased risk of . In the first 6 yearsafter a heart attack, they also have a higher risk of a second heart attack. Women are at high riskoften because they are older at the time of the heart attack and have other medical problems. Not everyone has the same symptoms. The most common symptoms of a heart attack include: Chest pain or pressure, squeezing, or fullness in the center of your chest that lasts more than a few minutes, or goes away and comes back (may feel like indigestion or heartburn) Pain or discomfort in one or both arms or shoulders, or in your back, neck, jaw, or stomach Trouble breathing Breaking out in a cold sweat for no known reason Along with these symptoms, you may also feel very tired, faint, or be sick to your stomach. Sometimes you can be having a heart attack and not know it. Many women have chest pain or pressure,but sometimes symptoms in women are different from men s symptoms. Or women may have additional symptoms, such as: Unexplained anxiety and nervousness Swelling of the ankles or lower legs Because they may not feel the typical pain in the left side of their chest, many women may ignore the symptoms of a heart attack. Call 911 for emergency help right away if you have these symptoms. Donot drive yourself to the hospital. Immediate emergency care improves your chances of survival and may help avoid damage to your heart. How can women lower their risk for heart disease? If you have high blood pressure, carefully follow your healthcare provider's instructions for keeping it under control. If you are a smoker, stop smoking. Try to keep a healthy weight. If you are overweight, talk to your provider about ways to lose weight. Eat a healthy diet that includes: ?Avoiding salty foods and not adding salt to food ?Increasing fiber, fruits, and vegetables ?Avoiding foods high in fat, cholesterol, and sugar Exercise according to your healthcare provider's instructions. Get enough rest and learn to use relaxation methods to help reduce stress. Treat and control medical conditions such as diabetes and high cholesterol. If you are taking hormone therapy, you and your healthcare provider should discuss the risks and benefits. Hormone therapy may increase the risk for heart disease or stroke. Talk with your provider about taking aspirin. Low-dose aspirin therapy reduces the risk of stroke for women. But it helps to lower a woman s risk of heart attack and other heart problems only if she is 65 or older. Make sure that your provider knows about any other medicines you are taking. If you decide you needto make changes in the way you live, you probably won't be able to turn your life around all at once. Try to develop healthy habits that incorporate your lifestyle goals. If you do, you will greatly decrease your chances for developing heart disease. You can get more information from: [place] Heart Ctzaeozblze5-341-JYH-USA-1 ( )www.heart.org Developed by [employer]. Published by [employer]. Copyright 2014 [employer] and/or one of its subsidiaries. All rights reserved. documented in this encounterLake [facility]04-10-2023 Miscellaneous Notes* Telephone Encounter - Lexy Cowart Ma - 11/30/2022 8:54 AM EDT Reviewed in OV. documented in this encounterLake [facility]04-10-[facility]23 History of Present illness Narrative* Felicity Forrest APRN.CNP - 11/30/2022 8:35 AM EDT Chief Complaint Patient presents with: yearly check History of Present Illness: Francis Diez is a 57 year old female who presents for routine follow up. She has a PMhx HTN, tobacco use, obesity, family hx of CAD. She was last seen in office by myself on 12/01/2021. She was ordered stress testing at that time but did not complete. Today, she explains she was afraid to complete stress testing. She recently has been treated for pneumonia and continues to feel shortness of breath and fatigue. She reports having some lower extremity swelling while sick and Lasix was increased to 40 mg. She also experiences some chest tightness unclear if cardiology or pulmonary related. She generally reports herself as less active over the past year due to decreased activity tolerance. She has not experienced exertional chest pain. We reviewed cardiac risk factors and modifications. She is agreeable to complete echocardiogram and nuclear med stress testing. She is agreeable to low-dose statin therapy for cardioprotection in setting of risk factors and elevated LDL cholesterol. I have also ordered follow-up lab work. PAST MEDICAL HISTORY Diagnosis Date Allergies ASTHMA UNSPECIFIED 07/08/2005 Bronchiectasis (HCC) CHRONIC AIRWAY OBSTRUCTION NEC 07/08/2005 Depression Diaphragm dysfunction HYPERTENSION NOS 07/08/2005 PAST SURGICAL HISTORY Procedure Laterality Date LAPS SURG CHOLECYSTECTOMY W/CHOLANGIOGRAPHY 04-21-13 [facility] [address] Guillen RMVL LUNG OTHER THAN PNEUMONECTOMY 1 LOBE LOBECT 1992 Left - bronchiectasis TOTAL ABDOMINAL HYSTERECT W/WO RMVL TUBE OVARY Hysterectomy, CARMENCITA FAMILY HISTORY Problem Relation Age of Onset other (Lung cancer [Other]) Mother Asthma Mother Diabetes Father Dialysis Father other (Myocardial infarction) Sister Colon Cancer Sister Colon Cancer Brother 2 brothers. other (Myocardial infarction) Brother Social History Tobacco Use Smoking status: Every Day Packs/day: 0.50 Years: 32.00 Pack years: 16.00 Types: Cigarettes Start date: 1982 Smokeless tobacco: Never Tobacco comments: Did not smoke during pregnancies. Former 2 ppd smoker. Less than 1/2ppd 07/20/22 Vaping Use Vaping Use: Never used Substance Use Topics Alcohol use: No Drug use: No ALLERGIES Allergen Reactions Benadryl [Diphenhyd* Shortness of Breath She is not sure of the reaction. Was given it in the ER years ago. Environmental [Othe* Shortness of Breath pollen Penicillins Hives Medications: Current Outpatient Medications Medication Sig Dispense Refill sertraline (ZOLOFT) 50 mg tablet Take 1 tablet by mouth once daily. 90 tablet 1 potassium chloride SR (MICRO-K) 10 mEq CR capsule Take 1 capsule by mouth twice daily. 180 capsule 3 traZODone (DESYREL) 100 mg tablet TAKE 3 TABLETS EVERY DAY 270 tablet 3 buPROPion XL (WELLBUTRIN XL) 300 mg 24 hr tablet Take 1 tablet by mouth once daily. 90 tablet 3 albuterol (PROVENTIL) 2.5 mg /3 mL (0.083 %) nebulizer solution Use 3 mL via nebulizer every 4 hours as needed for wheezing/shortness of breath. J44.9 3 mL 5 ipratropium (ATROVENT) 0.02 % nebulizer solution Use 2.5 mL via nebulizer four times daily as needed. OVER 5-15 MINUTES FOR WHEEZING OR SHORTNESS OF BREATH J44.9 2.5 mL 5 predniSONE (DELTASONE) 20 mg tablet Take 2 tablets by mouth once daily. 10 tablet 0 LORazepam (ATIVAN) 0.5 mg Take 0.5 tablets by mouth once daily as needed for up to 30 days. 15 tablet 0 budesonide-formoterol (SYMBICORT) 160-4.5 mcg/actuation inhaler Inhale 2 Puffs as instructed twice daily. 1 Each 0 fluticasone (FLONASE) 50 mcg/actuation nasal spray Use 2 Sprays in each nostril once daily. ADMINISTER 2 SPRAYS EACH NOSTRIL DAILY, RINSE MOUTH OUT AFTER USE. 3 Each 3 hydroCHLOROthiazide (HYDRODIURIL, ESIDRIX) 25 mg tablet Take 1 tablet by mouth once daily. 90 tablet 3 furosemide (LASIX) 20 mg tablet TAKE 1 TABLET BY MOUTH ONCE DAILY 90 tablet 3 albuterol HFA (VENTOLIN HFA) 90 mcg/actuation inhaler Inhale 2 Puffs as instructed every 4 hours asneeded for wheezing/shortness of breath. 54 g 3 nitroglycerin sublingual (NITROQUICK) 0.4 mg SL tablet Dissolve 1 tablet under the tongue as needed. FOR CHEST PAIN. IF NO RELIEF CALL 911 25 tablet 0 COMPOUNDED PRESCRIPTION Oxygen 2L at night and as needed 11 COMPOUNDED PRESCRIPTION Nebulizer machine DX: 496/143.90 1 0 Current Facility-Administered Medications Medication Dose Route Frequency Provider Last Rate Last Admin perflutren lipid microspheres 1.3 mL in NaCl (PF) 0.9% 10 mL injection (DEFINITY) INTRAVENOUS DIRECTED PRN Felicity Forrest APRN.PLANOGRAPH OPERATOR sodium chloride 0.9 % (flush) 10 mL (BD POSIFLUSH) 10 mL INTRAVENOUS DIRECTED PRN Felicity Forrest APRN.PLANOGRAPH OPERATOR Review of Systems Constitutional: Positive for malaise/fatigue. Negative for chills, diaphoresis, fever and weight loss. HENT: Negative for congestion, ear pain, nosebleeds, sinus pain and sore throat. Eyes: Negative for pain. Respiratory: Positive for shortness of breath. Negative for cough and wheezing. Cardiovascular: Positive for chest pain and leg swelling. Negative for palpitations. Gastrointestinal: Negative for abdominal pain, blood in stool and melena. Genitourinary: Negative for hematuria. Musculoskeletal: Negative for falls. Neurological: Negative for dizziness, tingling, sensory change, speech change, focal weakness, lossof consciousness, weakness and headaches. Endo/Heme/Allergies: Does not bruise/bleed easily. Psychiatric/Behavioral: Negative for depression, memory loss and suicidal ideas. The patient is notnervous/anxious and does not have insomnia. Physical Examination: Vitals:There were no vitals taken for this visit. Last 2 Encounter Wt Readings: Date: Wt: 11/27/2022 192 lb (87.1 kg) 11/23/2022 191 lb (86.6 kg) Physical Exam HENT: Head: Normocephalic. Eyes: Pupils: Pupils are equal, round, and reactive to light. Cardiovascular: Rate and Rhythm: Normal rate and regular rhythm. Pulses: Radial pulses are 2+ on the right side and 2+ on the left side. Dorsalis pedis pulses are 2+ on the right side and 2+ on the left side. Heart sounds: Normal heart sounds, S1 normal and S2 normal. Pulmonary: Effort: Pulmonary effort is normal. No accessory muscle usage or respiratory distress. Breath sounds: Wheezing present. Abdominal: General: Bowel sounds are normal. Palpations: Abdomen is soft. Musculoskeletal: General: Normal range of motion. Cervical back: Normal range of motion. Right lower leg: No edema. Left lower leg: No edema. Skin: General: Skin is warm and dry. Neurological: Mental Status: She is alert and oriented to person, place, and time. Gait: Gait is intact. Psychiatric: Mood and Affect: Affect normal. Cognition and Memory: Memory normal. Judgment: Judgment normal. Most Recent Cardiac Testing Stress echo pending Echocardiogram 2010 EF 60% no WMA Assessment and Plan: Chest pain -Described as tightness particularly evident since having pneumonia. Nonexertional. Did not complete stress echocardiogram ordered at last office visit for risk stratification. She feels like she will not be able to exercise on a treadmill. She does have oxygen requirements at night and has been wearing sometimes during the day. I have recommended an echocardiogram and nuclear med stress test instead for further evaluation of her symptoms. She is agreeable Dyspnea on exertion and fluid retention -Lower extremity swelling has resolved since increasing Lasix to 40 mg -Echocardiogram and BNP for further evaluation. CMP for repeat kidney function and electrolyte check after medication adjustment -recommended heart healthy, 2g low sodium diet, daily weights HTN -114/84 -Continue current medication(s) -Encouraged dietary sodium restriction/DASH diet -Recommended regular aerobic exercise. -Recommend home blood pressure monitoring, to bring results in on next visit -Discussed need and benefit for weight loss. -Goal of BP <130/80 HLD -lipid panel October 2022 LDL 135 -start Crestor 5 mg -repeat FLP and CMP in 8-12 weeks Tobacco use -Encouraged cessation -Physiologic and physical aspects of tobacco addiction as well as strategies for quitting were discussed. -Counseling was given focusing on the harmful effects of this addiction especially given the patient's medical condition(s) which will be worsened because of the chemicals in tobacco. Obesity -lifestyle modifications -encouraged a heart healthy diet, routine exercise and weight loss Family hx of CAD -Stress testing pending Follow up in 6 months. Sooner for abnormal testing results. Patient to call with any issues or concerns prior to then. Electronically signed by Felicity Forrest APRN.CNP on November 30, 2022, 8:35 AM documented in this encounterLake [facility]-07-[facility] Instructions* Patient Instructions* Cheyanne Cortez APRN.CNP - 11/27/2022 12:02 PM EDT Increase lasix and potassium to 2 tablets a day for the next 3 days If you do not see cardiology in 4 days follow up with me. Follow up if needed with me for any changes or concerns prior to the scheduled 3 month appointment. documented in this encounterLake [facility]04-07-[facility]23 History of Present illness Narrative* Cheyanne Cortez APRN.CNP - 11/27/2022 11:57 AM EDT CC: Patient presents with: Recheck: Follow up HPI Francis Diez is a 57 year old female who presents today for follow up on COPD exacerbation. Was seen 4 days ago with increased sputum with cough, shortness of breath, weakness, fatigue, and wheezing which had been occurring for weeks. Given levaquin and a steroid. Finsihed antibiotics this morning and took steroids as ordered. Has improved but still very tired in the evenings and gets shortness of breath still. Using albuterol average of 4 times a day alternating with nebulizer and inhaler. Still on 3L of oxygen nightly. Is not using during the day as much as prior to antibiotics. Recent chest xray showing bilateral pleural effusions. REVIEW OF SYSTEMS General: no fevers, no chills, no night sweats, no recurrent infections, and no significant changesin weight Respiratory: See HPI Cardiovascular: no chest pain, no chest pressure, no palpitations, and no swelling GI: No nausea, vomiting, or diarrhea Neurologic: No headache, dizziness, memory loss, syncope. PAST MEDICAL HISTORY Diagnosis Date Allergies ASTHMA UNSPECIFIED 07/08/2005 Bronchiectasis (HCC) CHRONIC AIRWAY OBSTRUCTION NEC 07/08/2005 Depression Diaphragm dysfunction HYPERTENSION NOS 07/08/2005 PAST SURGICAL HISTORY Procedure Laterality Date LAPS SURG CHOLECYSTECTOMY W/CHOLANGIOGRAPHY 04-21-13 [facility] [address] Guillen RMVL LUNG OTHER THAN PNEUMONECTOMY 1 LOBE LOBECT 1992 Left - bronchiectasis TOTAL ABDOMINAL HYSTERECT W/WO RMVL TUBE OVARY Hysterectomy, CARMENCITA ALLERGIES Benadryl [Diphenhydramine Hcl], Environmental [Other], and Penicillins MEDICATIONS sertraline (ZOLOFT) 50 mg tablet^Take 1 tablet by mouth once daily.^Disp: 90 tablet^Rfl: 1 potassium chloride SR (MICRO-K) 10 mEq CR capsule^Take 1 capsule by mouth twice daily.^Disp: 180 capsule^Rfl: 3 traZODone (DESYREL) 100 mg tablet^TAKE 3 TABLETS EVERY DAY^Disp: 270 tablet^Rfl: 3 buPROPion XL (WELLBUTRIN XL) 300 mg 24 hr tablet^Take 1 tablet by mouth once daily.^Disp: 90 tablet^Rfl: 3 albuterol (PROVENTIL) 2.5 mg /3 mL (0.083 %) nebulizer solution^Use 3 mL via nebulizer every 4 hours as needed for wheezing/shortness of breath. J44.9^Disp: 3 mL^Rfl: 5 ipratropium (ATROVENT) 0.02 % nebulizer solution^Use 2.5 mL via nebulizer four times daily as needed. OVER 5-15 MINUTES FOR WHEEZING OR SHORTNESS OF BREATH J44.9^Disp: 2.5 mL^Rfl: 5 predniSONE (DELTASONE) 20 mg tablet^Take 2 tablets by mouth once daily.^Disp: 10 tablet^Rfl: 0 levoFLOXacin (LEVAQUIN) 500 mg tablet^Take 1 tablet by mouth once daily for 5 days.^Disp: 5 tablet^Rfl: 0 LORazepam (ATIVAN) 0.5 mg^Take 0.5 tablets by mouth once daily as needed for up to 30 days.^Disp: 15 tablet^Rfl: 0 budesonide-formoterol (SYMBICORT) 160-4.5 mcg/actuation inhaler^Inhale 2 Puffs as instructed twice daily.^Disp: 1 Each^Rfl: 0 fluticasone (FLONASE) 50 mcg/actuation nasal spray^Use 2 Sprays in each nostril once daily. ADMINISTER 2 SPRAYS EACH NOSTRIL DAILY, RINSE MOUTH OUT AFTER USE.^Disp: 3 Each^Rfl: 3 hydroCHLOROthiazide (HYDRODIURIL, ESIDRIX) 25 mg tablet^Take 1 tablet by mouth once daily.^Disp: 90tablet^Rfl: 3 furosemide (LASIX) 20 mg tablet^TAKE 1 TABLET BY MOUTH ONCE DAILY^Disp: 90 tablet^Rfl: 3 albuterol HFA (VENTOLIN HFA) 90 mcg/actuation inhaler^Inhale 2 Puffs as instructed every 4 hours asneeded for wheezing/shortness of breath.^Disp: 54 g^Rfl: 3 nitroglycerin sublingual (NITROQUICK) 0.4 mg SL tablet^Dissolve 1 tablet under the tongue as needed. FOR CHEST PAIN. IF NO RELIEF CALL 911^Disp: 25 tablet^Rfl: 0 COMPOUNDED PRESCRIPTION^Oxygen 2L at night and as needed^Disp: ^Rfl: 11 COMPOUNDED PRESCRIPTION^Nebulizer machine DX: 496/143.90^Disp: 1^Rfl: 0 FAMILY HISTORY Problem Relation Age of Onset other (Lung cancer [Other]) Mother Asthma Mother Diabetes Father Dialysis Father other (Myocardial infarction) Sister Colon Cancer Sister Colon Cancer Brother 2 brothers. other (Myocardial infarction) Brother Social History Tobacco Use Smoking status: Every Day Packs/day: 0.50 Years: 32.00 Pack years: 16.00 Types: Cigarettes Start date: 1982 Smokeless tobacco: Never Tobacco comments: Did not smoke during pregnancies. Former 2 ppd smoker. Less than 1/2ppd 07/20/22 Vaping Use Vaping Use: Never used Substance Use Topics Alcohol use: No Drug use: No PHYSICAL EXAM BP 128/82 Pulse 80 Temp 36.8 C (98.2 F) (Temporal) Resp 16 Wt 87.1 kg (192 lb) SpO2 94% BMI 35.12 kg/m General Appearance: well appearing, in no acute distress, alert Skin: Skin color, texture, turgor normal for age; Eyes: conjunctiva pink and moist, no icterus, sclera white, non-injected Lungs: Lungs with inspiratory and expiratory wheezing to bilateral bases. No rhonchi, rales. Heart: RRR without murmur, gallop, or rubs. No ectopy Health maintenance reviewed with patient: MAMMOGRAM due on 12/11/2022 DTAP,TDAP,TD(1 - Tdap) due on 11/24/2023 SHINGRIX VACCINE(1 of 2) due on 11/24/2023 COVID-19 VACCINE(1) due on 11/24/2023 PNEUMOCOCCAL(2 - PCV) due on 11/24/2023 COLORECTAL CANCER SCREENING due on 07/09/2023 ANNUAL PCP TEAM CHRONIC DISEASE VISIT due on 11/24/2023 BP CONTROLLED (<130/80) due on 11/24/2023 DIABETES SCREEN due on 10/26/2025 LIPID SCREEN due on 10/27/2027 ALPHA-1 ANTITRYPSIN DEFICIENCY SCREENING Completed SPIROMETRY Completed INFLUENZA Completed HEPATITIS C SCREENING Completed PAP TESTING Discontinued HPV TESTING Discontinued HIV SCREENING Discontinued DATA REVIEWED: Most recent imaging ASSESSMENT/PLAN: 1. COPD with exacerbation (HCC) - ICD9: 491.21, ICD10: J44.1 (primary diagnosis) Improving - continue with upcoming appointment with pulmonology - follow up with me for any increase or unresolving symptoms - go to ER for increased shortness of breath, chest pain, confusion, or any other urgent concerns. 2. Pleural effusion - ICD9: 511.9, ICD10: J90 - increased lasix to 40mg along with 2 potassium tablets for next 3 days - continue with plans to see cardiology next week. If this appointment is canceled for any reason, follow up with me next week. Prescription instructions reviewed with patient as applicable. Potential red flag symptoms discussed with the patient. Reviewed appropriate action plan to take if red flag symptoms occur. Patient agreeable to treatment plan. Cheyanne Cortez APRN.CNP documented in this encounterLake [facility]23 Miscellaneous Notes* Telephone Encounter - Lexy Cowart Ma - 11/25/2022 10:28 AM EDT T/C patient, VM full. T[employer] message sent. * Telephone Encounter - Cheyanne Cortez APRN.CNP - 11/25/2022 8:02 AM EDT Please let patient know her chest xray showed a small amount of fluid. How is she feeling? Any improvement with antibiotic and steroids? Thank you Cheyanne Cortez APRN.CNP documented in this encounterLake [facility]04-03-[facility] History of Present illness Narrative* Patricia Batres RT(Tyesha) - 11/23/2022 9:50 AM EDT Radiology Service Progress Note PATIENT NAME: Francis Deiz DATE OF SERVICE: November 23, 2022 TIME: 9:42 AM PATIENT IDENTITY VERIFICATION COMPLETED USING TWO (2) IDENTIFIERS: Name and Date of confirmedby patient verbally. FALL SCREENING: Has the patient had 2 falls in the last year or 1 fall with injury or currently using an Ambulatory Assistive Device (Walker, Cane, Wheelchair, Crutches, etc.)? No PATIENT GENDER DATA: Female. status: : No status: NO. PATIENT RELEVANT IMPLANT DATA REVIEWED: Yes RADIOLOGY DEPARTMENT: General X-ray: Exam(s) Completed: Chest X-Ray PERIPHERAL IV DATA: Not applicable SIGNED BY: RT Shilpa(Tyesah) November 23, 2022 9:42 AM documented in this encounterL[facility] History of Present illness Narrative* Cheyanne Cortez, FIFI.PLANOGRAPH OPERATOR - 11/23/2022 9:15 AM EDT CC: Patient presents with: Yearly Exam: Annual exam HPI Francis Diez is a 57 year old female who presents today for annual physical exam but is ill with respiratory concerns so not fully evaluated. Exercise: denies regular aerobic exercise. Diet: Watches diet for salt (salty snacks, added salt, processed frozen/canned foods), sugary/sweetsnacks, unhealthy fats: Yes Has had lingering cold symptoms over the past few weeks. Was short of breath and needing her oxygenwith O2 sats in the 80s on RA. Chronically uses 2L at night but has increased it to 3L. Feels like there is some improvement but still with cough producing yellow sputum, some shortness of breath, fatigue, generalized weakness, and wheezing. Has had these symptoms for 2 weeks after having sinus congestion. Has needed her albuterol inhaler and nebulizer often as well. Is a cigarette smoker with history of COPD, but has decreased greatly with being ill. Has had to use her ativan every day with the difficulty breathing increasing her anxiety. Denies fever, chills, or chest pressure. HTN: Ms. Dize indicates that she is feeling well and denies any symptoms referable to elevated blood pressure. Specifically denies headache, chest pain, palpitations, and peripheral edema. Patient denies any side effects of her medication(s) and is compliant with their regimen. She does not checkBP's generally. Last 3 Encounter BP Readings: Date: BP: 11/23/2022 112/70 10/26/2022 128/76 07/20/2022 138/82 Depression and Anxiety: Unsure if it is currently under control. Was seen 4 weeks ago and started on sertraline in conjunction with her trazadone, but with being so sick recently unsure on any changes. Sleep: is described as normal with the trazadone Alcohol use: does not drink any alcohol Drug use: No Appetite: poor Stresses: Major stressor: family concerns Suicidal Thoughts: No suicidal ideation, intent or plan Counseling: sees Dr. Rowell for psychology. REVIEW OF SYSTEMS General: no fevers, no chills, no night sweats, no recurrent infections,and no significant changes in weight Respiratory: See HPI Cardiovascular: no chest pain, no chest pressure, no palpitations, and no swelling GI: No nausea, vomiting, or diarrhea : No history of dysuria, frequency or incontinence Musculoskeletal: Negative for joint pain or swelling, back pain or muscle pain Skin: Negative for lesions, rash, and itching Endocrine: no polyuria, no polyphagia, and no polydipsia Neurologic: No severe or persistent headache, numbness, tingling, vertigo, dizziness, memory loss, syncope. Phq 2 is 0 PAST MEDICAL HISTORY Diagnosis Date Allergies ASTHMA UNSPECIFIED 07/08/2005 Bronchiectasis (HCC) CHRONIC AIRWAY OBSTRUCTION NEC 07/08/2005 Depression Diaphragm dysfunction HYPERTENSION NOS 07/08/2005 PAST SURGICAL HISTORY Procedure Laterality Date LAPS SURG CHOLECYSTECTOMY W/CHOLANGIOGRAPHY 04-21-[address] [facility] [address] Guillen RMVL LUNG OTHER THAN PNEUMONECTOMY 1 LOBE LOBECT 1992 Left - bronchiectasis TOTAL ABDOMINAL HYSTERECT W/WO RMVL TUBE OVARY Hysterectomy, CARMENCITA ALLERGIES Benadryl [Diphenhydramine Hcl], Environmental [Other], and Penicillins MEDICATIONS LORazepam (ATIVAN) 0.5 mg^Take 0.5 tablets by mouth once daily as needed for up to 30 days.^Disp: 15 tablet^Rfl: 0 sertraline (ZOLOFT) 25 mg tablet^Take 1 tablet by mouth once daily. If tolerating after 2 weeks, increase to 2 tablets once daily^Disp: 45 tablet^Rfl: 1 potassium chloride SR (MICRO-K) 10 mEq CR capsule^Take 1 capsule by mouth twice daily.^Disp: 180 capsule^Rfl: 0 traZODone (DESYREL) 100 mg tablet^TAKE 3 TABLETS EVERY DAY^Disp: 270 tablet^Rfl: 0 buPROPion XL (WELLBUTRIN XL) 300 mg 24 hr tablet^Take 1 tablet by mouth once daily.^Disp: 90 tablet^Rfl: 0 budesonide-formoterol (SYMBICORT) 160-4.5 mcg/actuation inhaler^Inhale 2 Puffs as instructed twice daily.^Disp: 1 Each^Rfl: 0 fluticasone (FLONASE) 50 mcg/actuation nasal spray^Use 2 Sprays in each nostril once daily. ADMINISTER 2 SPRAYS EACH NOSTRIL DAILY, RINSE MOUTH OUT AFTER USE.^Disp: 3 Each^Rfl: 3 hydroCHLOROthiazide (HYDRODIURIL, ESIDRIX) 25 mg tablet^Take 1 tablet by mouth once daily.^Disp: 90tablet^Rfl: 3 furosemide (LASIX) 20 mg tablet^TAKE 1 TABLET BY MOUTH ONCE DAILY^Disp: 90 tablet^Rfl: 3 albuterol HFA (VENTOLIN HFA) 90 mcg/actuation inhaler^Inhale 2 Puffs as instructed every 4 hours asneeded for wheezing/shortness of breath.^Disp: 54 g^Rfl: 3 nitroglycerin sublingual (NITROQUICK) 0.4 mg SL tablet^Dissolve 1 tablet under the tongue as needed. FOR CHEST PAIN. IF NO RELIEF CALL 911^Disp: 25 tablet^Rfl: 0 naproxen (NAPROSYN) 500 mg tablet^Take 1 tablet by mouth twice daily as needed (for pain/inflammation). Take with food.^Disp: 30 tablet^Rfl: 1 albuterol (PROVENTIL) 2.5 mg /3 mL (0.083 %) nebulizer solution^Use 3 mL via nebulizer every 4 hours as needed for wheezing/shortness of breath. J44.9^Disp: 50 Package^Rfl: 3 ipratropium (ATROVENT) 0.02 % nebulizer solution^Use 2.5 mL via nebulizer four times daily as needed. OVER 5-15 MINUTES FOR WHEEZING OR SHORTNESS OF BREATH J44.9^Disp: 50 Vial^Rfl: 5 COMPOUNDED PRESCRIPTION^Oxygen 2L at night and as needed^Disp: ^Rfl: 11 COMPOUNDED PRESCRIPTION^Nebulizer machine DX: 496/143.90^Disp: 1^Rfl: 0 FAMILY HISTORY Problem Relation Age of Onset other (Lung cancer [Other]) Mother Asthma Mother Diabetes Father Dialysis Father other (Myocardial infarction) Sister Colon Cancer Sister Colon Cancer Brother 2 brothers. other (Myocardial infarction) Brother Social History Tobacco Use Smoking status: Every Day Packs/day: 0.50 Years: 32.00 Pack years: 16.00 Types: Cigarettes Start date: 1982 Smokeless tobacco: Never Tobacco comments: Did not smoke during pregnancies. Former 2 ppd smoker. Less than 1/2ppd 07/20/22 Vaping Use Vaping Use: Never used Substance Use Topics Alcohol use: No Drug use: No PHYSICAL EXAM BP 112/70 Pulse 88 Temp 36.9 C (98.5 F) (Temporal) Resp 16 Wt 86.6 kg (191 lb) SpO2 95% BMI 34.93 kg/m General Appearance: ill appearing but in no acute distress, alert Pysch: mood and affect broad and appropriate Skin: Skin color, texture, turgor normal for age; Eyes: conjunctiva pink and moist, no icterus, sclera white, non-injected Neck: Thyroid normal size and symmetric without palpable nodules, Neck supple, No adenopathy Lymph nodes: No cervical lymphadenopathy and No supraclavicular lymphadenopathy Lungs: inspiratory and expiratory wheezes throughout bilaterally posteriorly and anteriorly Heart: RRR without murmur, gallop, or rubs. No ectopy Abdomen: Abdomen soft, non-tender. Bowel sounds normal. No masses, organomegaly Extremities: No deformities, edema, skin discoloration, clubbing or cyanosis. Good capillary refill. Neurological: Gait normal. Reflexes normal and symmetric. Sensation grossly intact. COVID-19 VACCINE(1) Never done DTAP,TDAP,TD(1 - Tdap) due on 01/14/2006 SHINGRIX VACCINE(1 of 2) Never done PNEUMOCOCCAL(2 - PCV) due on 10/27/2015 MAMMOGRAM due on 12/11/2022 COLORECTAL CANCER SCREENING due on 07/09/2023 ANNUAL PCP TEAM CHRONIC DISEASE VISIT due on 10/27/2023 BP CONTROLLED (<130/80) due on 10/27/2023 DIABETES SCREEN due on 10/26/2025 LIPID SCREEN due on 10/27/2027 ALPHA-1 ANTITRYPSIN DEFICIENCY SCREENING Completed SPIROMETRY Completed INFLUENZA Completed HEPATITIS C SCREENING Completed PAP TESTING Discontinued HPV TESTING Discontinued HIV SCREENING Discontinued ASSESSMENT/PLAN: 1. Essential hypertension - ICD9: 401.9, ICD10: I10 - good control - Continue current medication(s) - Encouraged dietary sodium restriction/DASH diet - Recommended regular aerobic exercise. - Recommend home blood pressure monitoring, to bring results in on next visit - Goal of BP <130/80 2. Primary insomnia - ICD9: 307.42, ICD10: F51.01 - controlled with trazadone so will continue at this time. - TRAZODONE 100 MG TABLET 3. Shortness of breath - ICD9: 786.05, ICD10: R06.02 - COPD exacerbation and possible pneumonia. Treating with prednisone and levaquin - follow up on Wednesday - go to ER for any increase in shortness of breath, chest pain, palpitations, confusion, or any other urgent concerns. - XR CHEST 2V FRONTAL/LAT 4. COPD with exacerbation (HCC) - ICD9: 491.21, ICD10: J44.1 See above - ALBUTEROL SULFATE 2.5 MG/3 ML (0.083 %) SOLUTION FOR NEBULIZATION - IPRATROPIUM BROMIDE 0.02 % SOLUTION FOR INHALATION - XR CHEST 2V FRONTAL/LAT 5. Severe anxiety with panic - ICD9: 300.01, ICD10: F41.0 - increased anxiety with shortness of breath, needs re-evaluated when not ill. - LORAZEPAM 0.5 MG TABLET - Reviewed concept of neurochemical imbalance wth depression/anxiety, treatment options and benefits of counseling in combination with medication. Also reviewed benefits of sleep hygeine, diet and exercise - Instructed patient to contact office or [id number] after-hours promptly should condition worsen or any new symptoms appear. - [facility] and after hours crisis line PDMP website checked and validated. All prescriptions have been APPROPRIATELY filled. No suspiciousactivity was identified. 11/23/2022 by Cheyanne Cortez APRN.CNP 6. Insomnia, unspecified type - ICD9: 780.52, ICD10: G47.00 - controlled with current dose of trazadone, will continue 7. Episode of recurrent major depressive disorder, unspecified depression episode severity (HCC) - ICD9: 296.30, ICD10: F33.9 See #5 Prescription instructions reviewed with patient as applicable. Potential red flag symptoms discussed with the patient. Reviewed appropriate action plan to take if red flag symptoms occur. Patient agreeable to treatment plan. Cheyanne Cortez APRN.CNP documented in this encounterL[facility] History of Present illness Narrative* Cheyanne Cortez APRN.CNP - 10/26/2022 9:07 AM EST Chief Complaint Patient presents with: Recheck: Follow up, anxiety HPI Francis Diez is a 57 year old female who presents here today for anxiety. Was seen last 8 months ago and prescribed Lexapro and Hydroxyzine which was not followed up on but patient stopped as seh did not like how they made her feel. Anxiety: Intense with feelings of intense anxiety Sleep: is described as normal Alcohol use: does not drink any alcohol Drug use: No Appetite: good Stresses: Major concerns with personal issues and children Suicidal Thoughts: No suicidal ideation, intent or plan Support: None Counseling: No but scheduled with Dr. Rowell. Has been on numerous medications in the past which she feels sertraline may have helped hte best and was on 100mg once daily. Also requesting refill on her Ativan as needed. REVIEW OF SYSTEMS General: no fevers, no chills, no night sweats, no recurrent infections, no change in appetite, no change in energy, and no significant changes in weight Respiratory: no cough, no wheezing, no shortness of breath, no hemoptysis Cardiovascular: no chest pain, no chest pressure, no palpitations, and no swelling Neurologic: No headache, weakness, numbness, tingling, dizziness, syncope. PAST MEDICAL HISTORY Diagnosis Date Allergies ASTHMA UNSPECIFIED 07/08/2005 Bronchiectasis (HCC) CHRONIC AIRWAY OBSTRUCTION NEC 07/08/2005 Depression Diaphragm dysfunction HYPERTENSION NOS 07/08/2005 PAST SURGICAL HISTORY Procedure Laterality Date LAPS SURG CHOLECYSTECTOMY W/CHOLANGIOGRAPHY 04-21-13 [facility] [address] Guillen RMVL LUNG OTHER THAN PNEUMONECTOMY 1 LOBE LOBECT 1992 Left - bronchiectasis TOTAL ABDOMINAL HYSTERECT W/WO RMVL TUBE OVARY Hysterectomy, CARMENCITA ALLERGIES Benadryl [Diphenhydramine Hcl], Environmental [Other], and Penicillins MEDICATIONS escitalopram oxalate (LEXAPRO) 20 mg tablet^Take 1 tablet by mouth once daily.^Disp: 30 tablet^Rfl:3 potassium chloride SR (MICRO-K) 10 mEq CR capsule^Take 1 capsule by mouth twice daily.^Disp: 180 capsule^Rfl: 0 traZODone (DESYREL) 100 mg tablet^TAKE 3 TABLETS EVERY DAY^Disp: 270 tablet^Rfl: 0 buPROPion XL (WELLBUTRIN XL) 300 mg 24 hr tablet^Take 1 tablet by mouth once daily.^Disp: 90 tablet^Rfl: 0 budesonide-formoterol (SYMBICORT) 160-4.5 mcg/actuation inhaler^Inhale 2 Puffs as instructed twice daily.^Disp: 1 Each^Rfl: 0 fluticasone (FLONASE) 50 mcg/actuation nasal spray^Use 2 Sprays in each nostril once daily. ADMINISTER 2 SPRAYS EACH NOSTRIL DAILY, RINSE MOUTH OUT AFTER USE.^Disp: 3 Each^Rfl: 3 hydroCHLOROthiazide (HYDRODIURIL, ESIDRIX) 25 mg tablet^Take 1 tablet by mouth once daily.^Disp: 90tablet^Rfl: 3 furosemide (LASIX) 20 mg tablet^TAKE 1 TABLET BY MOUTH ONCE DAILY^Disp: 90 tablet^Rfl: 3 albuterol HFA (VENTOLIN HFA) 90 mcg/actuation inhaler^Inhale 2 Puffs as instructed every 4 hours asneeded for wheezing/shortness of breath.^Disp: 54 g^Rfl: 3 nitroglycerin sublingual (NITROQUICK) 0.4 mg SL tablet^Dissolve 1 tablet under the tongue as needed. FOR CHEST PAIN. IF NO RELIEF CALL 911^Disp: 25 tablet^Rfl: 0 naproxen (NAPROSYN) 500 mg tablet^Take 1 tablet by mouth twice daily as needed (for pain/inflammation). Take with food.^Disp: 30 tablet^Rfl: 1 albuterol (PROVENTIL) 2.5 mg /3 mL (0.083 %) nebulizer solution^Use 3 mL via nebulizer every 4 hours as needed for wheezing/shortness of breath. J44.9^Disp: 50 Package^Rfl: 3 ipratropium (ATROVENT) 0.02 % nebulizer solution^Use 2.5 mL via nebulizer four times daily as needed. OVER 5-15 MINUTES FOR WHEEZING OR SHORTNESS OF BREATH J44.9^Disp: 50 Vial^Rfl: 5 COMPOUNDED PRESCRIPTION^Oxygen 2L at night and as needed^Disp: ^Rfl: 11 COMPOUNDED PRESCRIPTION^Nebulizer machine DX: 496/143.90^Disp: 1^Rfl: 0 FAMILY HISTORY Problem Relation Age of Onset other (Lung cancer [Other]) Mother Asthma Mother Diabetes Father Dialysis Father other (Myocardial infarction) Sister Colon Cancer Sister Colon Cancer Brother 2 brothers. other (Myocardial infarction) Brother Social History Tobacco Use Smoking status: Every Day Packs/day: 0.50 Years: 32.00 Pack years: 16.00 Types: Cigarettes Start date: 1982 Smokeless tobacco: Never Tobacco comments: Did not smoke during pregnancies. Former 2 ppd smoker. Less than 1/2ppd 07/20/22 Vaping Use Vaping Use: Never used Substance Use Topics Alcohol use: No Drug use: No PHYSICAL EXAM BP 128/76 Pulse 80 Resp 16 Wt 88 kg (194 lb) BMI 35.48 kg/m Appearance: well dressed well groomed, cooperative, and pleasant Behavior: good eye contact Speech: normal and fluent and coherent Mood: anxious Affect: appropriate Perceptions: none Thought process: goal directed Thought Content: normal Intelligence level: normal Insight: good Judgment: good DATA REVIEWED: No new labs ASSESSMENT/PLAN: 1. Severe anxiety with panic - ICD9: 300.01, ICD10: F41.0 (primary diagnosis) Uncontrolled - continue current medications and adding sertraline also giving small amount of ativan to use as needed - Reviewed concept of neurochemical imbalance wth depression/anxiety, treatment options and benefits of counseling in combination with medication. Also reviewed benefits of sleep hygeine, diet and exercise - Follow-up in 6 weeks or sooner as needed - Instructed patient to contact office or [id number] after-hours promptly should condition worsen or any new symptoms appear. - [facility] and after hours crisis line - LORAZEPAM 0.5 MG TABLET PDMP website checked and validated. All prescriptions have been APPROPRIATELY filled. No suspiciousactivity was identified. 10/26/2022 by Cheyanne Cortez APRN.CNP 2. Annual physical exam - ICD9: V70.0, ICD10: Z00.00 - annual exam not performed today. Will do annual exam at follow up so fasting lab work placed today. - LIPID PANEL BASIC - CBC + DIFF - COMP METABOLIC PANEL Prescription instructions reviewed with patient as applicable. Potential red flag symptoms discussed with the patient. Reviewed appropriate action plan to take if red flag symptoms occur. Patient agreeable to treatment plan. Cheyanne Cortez APRN.CNP documented in this encounterLake [facility]02-09-2023 Miscellaneous Notes* Telephone Encounter - Heather Fairbanks LPN - 10/01/2022 10:52 AM EST Spoke with pt and she only uses this when needed. She has not been getting anywhere else. Uses onlyif needed because it has a steroid in it. Pt asking to please refill for her. Heather Fairbanks LPN * Telephone Encounter - Cheyanne Cortez APRN.CNP - 10/01/2022 10:50 AM EST This was last ordered by us almost 2 years ago. Has she been not taking it or getting prescribed bysomeone else? Thank you Cheyanne Cortez APRN.DICK * Telephone Encounter - Stacie Rowell LPN - 10/01/2022 8:13 AM EST Patient has been identified by name and date of : Yes Patient phones for refill(s): Requested Prescriptions Pending Prescriptions Disp Refills budesonide-formoterol (SYMBICORT) 160-4.5 mcg/actuation inhaler Sig: Inhale 2 Puffs as instructed twice daily. Date of last office visit in primary care: 02/25/2022 Please advise. Thank you. Stacie Rowell LPN documented in this encounterLake County [facility]01-23-2023 Miscellaneous Notes* Telephone Encounter - Felicity Ramos Pss - 09/14/2022 3:14 PM EST Patient requesting a mammogram. Please place order and let us know when we can schedule. Felicity Ramos Pss documented in this encounterLake [facility]11-28-2022 Nurse Note* Estrella Hill LPN - 07/20/2022 1:01 PM EST P 66 R16 SPO2 92% documented in this encounterLake County [facility]11-28-2022 History of Present illness Narrative* Florina Arenas PA-C - 07/20/2022 1:00 PM EST Patient: Francis Diez PCP: Mariluz High MD CC: COPD HPI: Francis Diez 57 year old female current daily smoker, 16 pack years with PMH significant for bronchiectasis s/p LLL resection for infection in 1992, left diaphragmatic dysfunction, chronic asthmatic bronchitis, COPD and HTN. Since the last Pulmonary Clinic visit 01/12/2022, the patient has not required ED care for exacerbation. There has been no hospital admission for exacerbation. Claims to be consistently compliant with prescribed maintenance Rx Symbicort most days and Flonase. Reports taking Symbicort more as needed. Stopped Singulair because she read it could cause weight gain. Does not require rescue bronchodilator. No cough or sputum. No hemoptysis. No post nasal drip with Flonase. Frequent wheezing with exertion and mid-morning. No dyspnea at rest. Exertional dyspnea has not changed. Variable lower extremity edema depending on activity. PAST MEDICAL HISTORY Diagnosis Date Allergies ASTHMA UNSPECIFIED 07/08/2005 Bronchiectasis (HCC) CHRONIC AIRWAY OBSTRUCTION NEC 07/08/2005 Depression Diaphragm dysfunction HYPERTENSION NOS 07/08/2005 Allergies: Benadryl [Diphenhyd* Shortness of Breath Comment:She is not sure of the reaction. Was given it in the ER years ago. Environmental [Othe* Shortness of Breath Comment:pollen Penicillins Hives hydroCHLOROthiazide (HYDRODIURIL, ESIDRIX) 25 mg tablet^Take 1 tablet by mouth once daily.^Disp: 90tablet^Rfl: 3 traZODone (DESYREL) 100 mg tablet^TAKE 3 TABLETS EVERY DAY^Disp: 270 tablet^Rfl: 1 buPROPion XL (WELLBUTRIN XL) 300 mg 24 hr tablet^Take 1 tablet by mouth once daily.^Disp: 90 tablet^Rfl: 1 furosemide (LASIX) 20 mg tablet^TAKE 1 TABLET BY MOUTH ONCE DAILY^Disp: 90 tablet^Rfl: 3 hydrOXYzine HCl (ATARAX) 25 mg tablet^Take 1 tablet by mouth every 6 hours as needed for anxiety.^Disp: 30 tablet^Rfl: 1 escitalopram oxalate (LEXAPRO) 20 mg tablet^Take 1 tablet by mouth once daily.^Disp: 30 tablet^Rfl:3 albuterol HFA (VENTOLIN HFA) 90 mcg/actuation inhaler^Inhale 2 Puffs as instructed every 4 hours asneeded for wheezing/shortness of breath.^Disp: 54 g^Rfl: 3 montelukast (SINGULAIR) 10 mg tablet^Take 1 tablet by mouth once daily.^Disp: 30 tablet^Rfl: 5 potassium chloride SR (MICRO-K) 10 mEq CR capsule^TAKE 1 CAPSULE BY MOUTH TWICE DAILY^Disp: 180 capsule^Rfl: 3 nitroglycerin sublingual (NITROQUICK) 0.4 mg SL tablet^Dissolve 1 tablet under the tongue as needed. FOR CHEST PAIN. IF NO RELIEF CALL 911^Disp: 25 tablet^Rfl: 0 lisinopril (ZESTRIL, PRINIVIL) 10 mg tablet^TAKE 1 TABLET BY MOUTH ONCE DAILY^Disp: 90 tablet^Rfl: 3 naproxen (NAPROSYN) 500 mg tablet^Take 1 tablet by mouth twice daily as needed (for pain/inflammation). Take with food.^Disp: 30 tablet^Rfl: 1 albuterol (PROVENTIL) 2.5 mg /3 mL (0.083 %) nebulizer solution^Use 3 mL via nebulizer every 4 hours as needed for wheezing/shortness of breath. J44.9^Disp: 50 Package^Rfl: 3 budesonide-formoterol (SYMBICORT) 160-4.5 mcg/actuation inhaler^Inhale 2 Puffs as instructed twice daily.^Disp: 3 Inhaler^Rfl: 3 fluticasone (FLONASE) 50 mcg/actuation nasal spray^Use 2 Sprays in each nostril once daily. ADMINISTER 2 SPRAYS EACH NOSTRIL DAILY, RINSE MOUTH OUT AFTER USE.^Disp: 3 Bottle^Rfl: 3 ipratropium (ATROVENT) 0.02 % nebulizer solution^Use 2.5 mL via nebulizer four times daily as needed. OVER 5-15 MINUTES FOR WHEEZING OR SHORTNESS OF BREATH J44.9^Disp: 50 Vial^Rfl: 5 COMPOUNDED PRESCRIPTION^Oxygen 2L at night and as needed^Disp: ^Rfl: 11 COMPOUNDED PRESCRIPTION^Nebulizer machine DX: 496/143.90^Disp: 1^Rfl: 0 Social History Tobacco Use Smoking status: Every Day Packs/day: 0.50 Years: 32.00 Pack years: 16.00 Types: Cigarettes Start date: 1982 Smokeless tobacco: Never Tobacco comments: Did not smoke during pregnancies. Former 2 ppd smoker Vaping Use Vaping Use: Never used Substance Use Topics Alcohol use: No Drug use: No Family History Problem Relation Age of Onset other (Lung cancer [Other]) Mother Asthma Mother Diabetes Father Dialysis Father other (Myocardial infarction) Sister Colon Cancer Sister Colon Cancer Brother 2 brothers. other (Myocardial infarction) Brother PAST SURGICAL HISTORY Procedure Laterality Date LAPS SURG CHOLECYSTECTOMY W/CHOLANGIOGRAPHY 04-21-[address] [facility] [address] Guillen RMVL LUNG OTHER THAN PNEUMONECTOMY 1 LOBE LOBECT 1992 Left - bronchiectasis TOTAL ABDOMINAL HYSTERECT W/WO RMVL TUBE OVARY Hysterectomy, CARMENCITA I reviewed the past medical history, family history, social history and surgical history with changes noted above and updated in EMR. IMMUNIZATIONS Prevnar - 12/15/2006 Pneumovax - 10/26/2014 Influenza - 06/16/2022 COVID-19 - xx ROS: General: Generally feels well. Appetite good. Eyes, Ears, nose, throat: No post nasal drip, rhinorrhea, purulent nasal discharge. No epistaxis. No hoarseness. Vision stable. Cardiac: No angina. 2 pillow orthopnea. Resp: See HPI. GI: Occasional heartburn, very rare. No dysphagia, diarrhea. Musculoskeletal: No pain. Neuro: No headache, focal weakness, tremor. Skin: No rash. Otherwise negative. PHYSICAL EXAMINATION: BP 138/82 Pulse 66 Resp 16 Wt 83.9 kg (185 lb) SpO2 92% BMI 33.84 kg/m Gen: No acute distress. Cooperative with examination. ENT: Oral hygeine and dentition good. Pharynx clear. No thrush. Resp: No stridor, accessory respiratory muscle use, supra-sternal or intercostal retractions. No wheezes, crackles. CV: Regular rythm. Heart tones normal. Radial pulses normal. Abd: Non distended. MSK: No kyphoscoliosis. Ext: Warm and well perfused. No clubbing, cyanosis, edema. Skin: No rash, ecchymoses. Neuro: Mental status normal. Affect normal. No tremor. DATA: PFT, 11/25/2021 IMPRESSION: Spirometry shows no obstruction.The reduced FVC suggests restriction. Recommend lung volumes if clinically indicated. Electronically Signed On 11-25-2021 16:15:22 EDT by Penny Garner M.D. Exhaled nitric oxide (Dorie), 11/25/2021: 5 (normal < 20). Component Latest Ref Rng & Units 11/25/2021 Abs Eosin <0.46 k/uL 0.71 (H) IgE <114.0 kU/l 30.7 CT chest, 12/05/2021 IMPRESSION: 1. No acute chest pathology 2. Unchanged elevation of the left hemidiaphragm 3. Again noted is scarring or atelectasis in the medial right middle lobe and right lower lobe Comparison: CT chest 12/03/2014 RESULT: Limitations: None. Lines, tubes, and devices: None. Lung parenchyma and airways: Elevation of the left hemidiaphragm. Linear areas of scarring or atelectasis in the medial right middle lobe and right lower lobe. No consolidation. Stable 4 mm nodule posterior left lower lobe (6:67). No new suspicious pulmonary nodule. The central airways are patent. Pleural space: No pleural effusion. No pleural thickening. Lower neck, lymph nodes, and mediastinum: The imaged thyroid gland is normal. No lymphadenopathy in the supraclavicular, axillary, mediastinal, or hilar regions. Heart, pericardium, and thoracic vessels: The thoracic aorta and main pulmonary artery are normal in caliber. The cardiac chambers are normal in size. No coronary artery atherosclerotic calcifications are noted, although the study is not optimized for coronary assessment. No pericardial effusion or thickening. Bones and soft tissues: No destructive bone lesion. Degenerative disease of the thoracic spine. Chest wall is unremarkable. Upper abdomen: No acute abnormality in the imaged upper abdomen. Residence Manager (topogram) images: No additional findings. ASSESSMENT/PLAN: 1. Asthma-COPD overlap syndrome (HCC) - ICD9: 493.20, ICD10: J44.9 (primary diagnosis) Continue Symbicort 2 inhalations twice daily. Rinse mouth after each use to help prevent oral thrush. Patient stopped taking Singulair. Continue Flonase nasal spray. Albuterol HFA inhaler, 2 inhalations 10-15 minutes prior to activities associated with shortness ofbreath, and as needed for rescue relief of shortness of breath or wheezing, up to 4 times daily. Smoking cessation is critical. - SPIROMETRY BASELINE ONLY 2. Cigarette smoker - ICD9: 305.1, ICD10: F17.210 Cessation encouraged. Physiologic and physical aspects of tobacco addiction as well as strategies for quitting were discussed. Counseling was given focusing on the harmful effects of this addiction especially given the patient's medical condition(s) which will be worsened because of the chemicals in tobacco. Currently on Wellbutrin. Patient has no desire to quit smoking. 3. Allergic rhinitis, unspecified seasonality, unspecified trigger - ICD9: 477.9, ICD10: J30.9 See #1. - FLUTICASONE PROPIONATE 50 MCG/ACTUATION NASAL SPRAY,SUSPENSION 4. 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 Lung nodule - ICD9: 793.11, ICD10: R91.1 CT chest 12/05/2021 stable 4 mm nodule posterior left lower lobe. Repeat CT chest in 1 year. Florina Arenas PA-C documented in [facility] encounterL[facility] History of Present illness Narrative* Christine Ferrari MA - 07/09/2022 9:45 AM EST POPULATION HEALTH NAVIGATION OUTREACH Action/ PCP appointment needed: YES, Annual Wellness HCC Gaps: N/A Care Gaps to Address: BP Controlled - Had PCP visit this year Flu Vaccine Needed Outcomes: Left message on voice mail and sent flaregames message. Pt identified by name and : NO Outreach Outcome/Action Unable to reach patient: Left message Cloud Floorhart message sent Did you use a PCP flex slot to schedule this appointment? N/A Reason for Outreach Care Gap or Scheduling/Wellness visits Payer: Payor: MEDICAID [place] / Plan: [place] / Product Type: Medicaid / Care Gap Reviewed:: Annual Wellness visit Flu vaccine Reminder: Reminder note to check Health Maintenance for items below Health Maintenance items due: BP CONTROLLED (<130/80) Never done PNEUMOCOCCAL(2 - PCV) due on 10/27/2015 INFLUENZA(1) due on 04/23/2022 Message Sent to Practice: No Navigation Signature: Christine Ferrari MA July 09, 2022 9:45 AM documented in this encounterL[facility]-07-2022 Miscellaneous Notes* Telephone Encounter - Stacie Mcfarland Ma - 05/29/2022 9:41 AM EDT Last OV: 02/25/22 Next OV: N/A documented in this encounterL[facility]10-07-2022 Miscellaneous Notes* Telephone Encounter - Arely Arredondo - 05/29/2022 9:06 AM EDT Patient electronically sent a request for the following prescription(s) Requested Prescriptions Pending Prescriptions Disp Refills hydroCHLOROthiazide (HYDRODIURIL, ESIDRIX) 25 mg tablet 90 tablet 3 Sig: Take 1 tablet by mouth once daily. Patient aware RX will be sent to pharmacy. No need to notify patient. Last Office Visit: 02/25/2022 with Cheyanne Cortez CNP Next Office Visit: NONE Please review. Arely Arredondo documented in this encounterLake [facility]-05-2022 History of Present illness Narrative* Rosi Burgess MA - 05/27/2022 4:29 PM EDT POPULATION HEALTH NAVIGATION OUTREACH Action/FYI Called and left a message to call [phone], to discuss health maintenance items that are due. Sent My Chart message. PCP appt: 02/25- needs 6 week BP follow up My chart activation: active Advance directive: needs info HM due: BP follow up Flu AD Pt identified by name and : NO Outreach Outcome/Action Unable to reach patient: Left message MyChart message sent Did you use a PCP flex slot to schedule this appointment? N/A Reason for Outreach Care Gap or Scheduling/Wellness visits Payer: Payor: [facility] MEDICARE / Plan: [facility] DUAL COMPLETE HMO SNP / Product Type: Medicare / Care Gap Reviewed:: Follow-up appointment Controlling Blood Pressure Flu vaccine Reminder: Reminder note to check Health Maintenance for items below Health Maintenance items due: BP CONTROLLED (<130/80) Never done PNEUMOCOCCAL(2 - PCV) due on 10/27/2015 INFLUENZA(1) due on 04/23/2022 Message Sent to Practice: No Navigation Signature: Rosi Burgess MA May 27, 2022 4:30 PM documented in this encounterLake [facility]08-20-2022 Miscellaneous Notes* Telephone Encounter - Louisa Sumner RN - 04/11/2022 8:16 AM EDT Last Office Visit: 02/25/2022 Future Office Visit: None Last Medication Refill: Furosemide 10/13/2021 90 tab 1 refill Date of Last Labs: 11/25/2021 documented in this encounterLake [facility]07-06-2022 Instructions* Patient Instructions* Cheyanne Cortez APRN.CNP - 02/25/2022 8:35 AM EDT - Contact office or [id number] after-hours promptly should condition worsen or any new symptoms appear. - Counseling Center [facility] and after hours crisis line documented in this encounterLake [facility]07-06-[facility]22 History of Present illness Narrative* Cheyanne Cortez APRN.CNP - 02/25/2022 8:17 AM EDT Chief Complaint Patient presents with: Recheck: Medication follow up. R foot pain HPI Francis Diez is a 57 year old female who presents here today for anxiety follow-up. Has been having issues with children especially with a son who had a recent drug overdose and multiple other family issues. Patient was seen 3 months ago and asked by this provider for follow up appointment because she is using her ativan almost every day and anxiety seems out of control. Patient agrees and has intense anxious feelings daily. Also has difficulty sleeping and wakes up in middle of the night anxious feeling like she can't breathe. Denies suicidal thoughts or plan. Had been on numerous other SSRIs over the years but Patient states once she felt better she took herself off. Also hs had sharp right heel pain for the past few days. Is noticeable in the morning when she wakes up and stands on it. Denies injury, edema, redness, or any other concern. REVIEW OF SYSTEMS General: no fevers, no chills, no night sweats, no recurrent infections, no change in appetite, no change in energy and no significant changes in weight Respiratory: no cough, no wheezing, no shortness of breath, no hemoptysis Cardiovascular: no chest pain, no chest pressure, no palpitations and no swelling PAST MEDICAL HISTORY Diagnosis Date Allergies ASTHMA UNSPECIFIED 07/08/2005 Bronchiectasis (HCC) CHRONIC AIRWAY OBSTRUCTION NEC 07/08/2005 Depression Diaphragm dysfunction HYPERTENSION NOS 07/08/2005 PAST SURGICAL HISTORY Procedure Laterality Date LAPS SURG CHOLECYSTECTOMY W/CHOLANGIOGRAPHY 04-21-[address] [facility] [address] Guillen RMVL LUNG OTHER THAN PNEUMONECTOMY 1 LOBE LOBECT 1992 Left - bronchiectasis TOTAL ABDOMINAL HYSTERECT W/WO RMVL TUBE OVARY Hysterectomy, CARMENCITA ALLERGIES Benadryl [Diphenhydramine Hcl], Environmental [Other], and Penicillins MEDICATIONS LORazepam (ATIVAN) 0.5 mg Take 1 (ONE) tablet by mouth once daily as needed for up to 30 days. albuterol HFA (VENTOLIN HFA) 90 mcg/actuation inhaler Inhale 2 Puffs as instructed every 4 hours asneeded for wheezing/shortness of breath. montelukast (SINGULAIR) 10 mg tablet Take 1 tablet by mouth once daily. potassium chloride SR (MICRO-K) 10 mEq CR capsule TAKE 1 CAPSULE BY MOUTH TWICE DAILY nitroglycerin sublingual (NITROQUICK) 0.4 mg SL tablet Dissolve 1 tablet under the tongue as needed. FOR CHEST PAIN. IF NO RELIEF CALL 911 traZODone (DESYREL) 100 mg tablet TAKE 3 TABLETS EVERY DAY furosemide (LASIX) 20 mg tablet Take 1 tablet by mouth once daily. buPROPion XL (WELLBUTRIN XL) 300 mg 24 hr tablet Take 1 tablet by mouth once daily. lisinopril (ZESTRIL, PRINIVIL) 10 mg tablet TAKE 1 TABLET BY MOUTH ONCE DAILY hydroCHLOROthiazide (HYDRODIURIL, ESIDRIX) 25 mg tablet TAKE 1 TABLET BY MOUTH ONCE DAILY naproxen (NAPROSYN) 500 mg tablet Take 1 tablet by mouth twice daily as needed (for pain/inflammation). Take with food. albuterol (PROVENTIL) 2.5 mg /3 mL (0.083 %) nebulizer solution Use 3 mL via nebulizer every 4 hours as needed for wheezing/shortness of breath. J44.9 budesonide-formoterol (SYMBICORT) 160-4.5 mcg/actuation inhaler Inhale 2 Puffs as instructed twice daily. fluticasone (FLONASE) 50 mcg/actuation nasal spray Use 2 Sprays in each nostril once daily. ADMINISTER 2 SPRAYS EACH NOSTRIL DAILY, RINSE MOUTH OUT AFTER USE. ipratropium (ATROVENT) 0.02 % nebulizer solution Use 2.5 mL via nebulizer four times daily as needed. OVER 5-15 MINUTES FOR WHEEZING OR SHORTNESS OF BREATH J44.9 COMPOUNDED PRESCRIPTION Oxygen 2L at night and as needed COMPOUNDED PRESCRIPTION Nebulizer machine DX: 496/143.90 FAMILY HISTORY Problem Relation Age of Onset other (Lung cancer [Other]) Mother Asthma Mother Diabetes Father Dialysis Father other (Myocardial infarction) Sister Colon Cancer Sister Colon Cancer Brother 2 brothers. other (Myocardial infarction) Brother Social History Tobacco Use Smoking status: Current Every Day Smoker Packs/day: 0.50 Years: 32.00 Pack years: 16.00 Types: Cigarettes Start date: 1982 Smokeless tobacco: Never Used Tobacco comment: Did not smoke during pregnancies. Former 2 ppd smoker Vaping Use Vaping Use: Never used Substance Use Topics Alcohol use: No Drug use: No PHYSICAL EXAM BP 130/86 Pulse 88 Resp 16 Wt 85.3 kg (188 lb) BMI 34.39 kg/m Appearance: well dressed well groomed, cooperative and pleasant Behavior: good eye contact Speech: fluent and coherent Mood: euthymic Affect: appropriate Perceptions: none Thought process: goal directed Thought Content: normal Intelligence level: normal Insight: good Judgment: good BLE Extremities: No deformities, edema, skin discoloration, clubbing or cyanosis. Good capillary refill. Reports tenderness with palpation to right heel. No edema or redness, patient in flip flops and gait is normal. ASSESSMENT/PLAN: 1. Anxiety - ICD9: 300.00, ICD10: F41.9 (primary diagnosis) - uncontrolled, discussed with patient ativan is not her best option, we need to get her anxiety under control. Will start lexapro as she has been on this before. I - CONSULT TO PRIMARY [facility] AD[facility] - ESCITALOPRAM 20 MG TABLET - also will start hydroxyzine to help manage anxiety symptoms PRN versus the ativan - Reviewed concept of neurochemical imbalance [facility] depression/anxiety, treatment options and benefits of counseling in combination with medication. Also reviewed benefits of sleep hygeine, diet and exercise - Follow-up in 6 weeks or sooner as needed - Instructed patient to contact office or [id number] after-hours promptly should condition worsen or any new symptoms appear. - Counseling Center [facility] and after hours crisis line 2. Plantar fasciitis of right foot - ICD9: 728.71, ICD10: M72.2 - Rest Limiting athletic activities and getting extra rest may help to reduce symptoms. Excessive and repetitive heel impact from jumping, walking, and using a trampoline should be avoided. A complete lack of physical activity, though, can lead to stiffening and to a return of pain and is not recommended. Icing Apply ice to the area for 20 minutes up to four times daily, may relieve pain. Ice and massage may also be used before exercise. Stretching Stretching exercises may be helpful. Follow instructions given at appointment. Be sure to perform these exercises with care to avoid causing more pain. Protective footwear Athletic shoes, arch-supporting shoes (particularly those with an extra-long counter, which is the firm part of the shoe that surrounds the heel), or shoes with rigid shanks (usually a metal insert in the sole of the shoe) may be helpful. Cushion-soled shoes with gel pad insertsor heel cups may provide temporary pain relief. Silicone inserts have been found to provide better support than felt pads or rubber heel cups. Splints may be helpful when worn overnight to position the foot and heel to provide pain relief and a gentle stretch. These splints can usually be purchasedin pharmacies that carry orthopedic supplies. Wearing slippers or going barefoot may cause symptoms to return, even if the floors are carpeted. Thus, the first step out of bed should be made with a supportive shoe or sandal on. Prescription instructions reviewed with patient as applicable. Potential red flag symptoms discussed with the patient. Reviewed appropriate action plan to take if red flag symptoms occur. Patient agreeable to treatment plan Cheyanne Cortez APRN.CNP documented in this encounterLake [facility]06-29-2022 Miscellaneous Notes* Telephone Encounter - Heather Fairbanks LPN - 02/18/2022 9:08 AM EDT Spoke with pt and apt booked. Heather Fairbanks LPN * Telephone Encounter - Cheyanne Cortez APRN.CNP - 02/18/2022 8:41 AM EDT Patient is still continuing to use this daily. She needs to reschedule canceled appointment to review other options. Only giving her a small amount until she can be seen again. Thank you Cheyanne Cortez APRN.CNP PDMP website checked and validated. All prescriptions have been APPROPRIATELY filled. No suspiciousactivity was identified. 02/18/2022 by Cheyanne Cortez APRN.CNP * Telephone Encounter - Penny Anne Ma - 02/17/2022 4:16 PM EDT Patient last visit 11/10/21 Follow up appointment scheduled none Penny Anne Ma documented in this encounterLake [facility]06-28-2022 Miscellaneous Notes* Telephone Encounter - Heather Fairbanks LPN - 02/17/2022 4:48 PM EDT Patient has been identified by name and date of : Yes Patient phones for refill(s): Pending Prescriptions Disp Refills LORAZEPAM 0.5 MG TABLET 25 tablet 0 Sig: Take 1 tablet by mouth once daily as needed for up to 30 days. EDNA Class: C-IV RUBÉN: No Date of last office visit in primary care: 11/10/21 Last 2 Encounter Wt Readings: Date: Wt: 01/12/2022 86.1 kg (189 lb 12.8 oz) 11/25/2021 84.8 kg (187 lb) Previous labs/tests for medication: Not applicable Please advise. Thank you. Heather Fairbanks LPN documented in this encounterLake County [facility]05-25-2022 Miscellaneous Notes* Telephone Encounter - Cheyanne Cortez APRN.CNP - 01/14/2022 5:38 PM EDT PDMP website checked and validated. All prescriptions have been APPROPRIATELY filled. No suspiciousactivity was identified. 01/14/2022 by Cheyanne Cortez APRN.CNP * Telephone Encounter - Heather Fairbanks LPN - 01/14/2022 3:08 PM EDT Patient has been identified by name and date of : Yes Patient phones for refill(s): Pending Prescriptions Disp Refills LORAZEPAM 0.5 MG TABLET 25 tablet 0 Sig: Take 1 tablet by mouth once daily as needed for up to 30 days. EDNA Class: C-IV RUBÉN: No Date of last office visit in primary care: 11/10/21 next apt 02/13/22 Last 2 Encounter Wt Readings: Date: Wt: 01/12/2022 86.1 kg (189 lb 12.8 oz) 11/25/2021 84.8 kg (187 lb) Previous labs/tests for medication: Not applicable Please advise. Thank you. Heather Fairbanks LPN documented in this encounterLake County [facility]05-23-2022 History of Present illness Narrative* Florina Arenas PA-C - 01/12/2022 9:31 AM EDT [facility] [place], 01/12/2022: Name: Francis Diez : 1965 The patient is here today by herself. HPI: Francis Diez is a 56 yo female with PMH significant for bronchiectasis s/p LLL resection for infection 1992, left diaphragmatic dysfunction, chronic asthmatic bronchitis, COPD, and HTN. Current daily smoker. 16 pack years. The patient is here for follow up of asthma/COPD overlap. Diagnosed with asthma as a child with a history of recurrent bronchitis/pneumonia. Since the last Pulmonary Clinic visit 11/25/[address] Garner, the patient admits to compliance with prescribed maintenance Rx: Symbicort 2 inhalations twice daily and Singulair 1 tablet nightly. As well as, Flonase for seasonal allergies. There have been no ED visit(s) for the management of asthma exacerbation. No hospitalization(s) for management of asthma exacerbation. Has used no prednisone for the management of exacerbation. Increased use of rescue bronchodilator with the changing of seasons. No nocturnal awakenings per month with asthma symptoms. No significant cough or sputum. Frequent wheezing. Exertional dyspnea with carrying bags of groceries and climbing stairs. Walks in the morning, however, with allergy season she has not been able to. Occasional lower extremity edema, especially with high humidity. Takes Lasix daily. No disruption in taste or voice associated with use of inhaled corticosteroid. No tremor, palpitations, or muscle cramping associated with bronchodilator inhalation. PMH: Updated with patient today. FAMH: Updated with patient today. SOCH: Updated with patient today. Currently smoking 1 pack over the course of 3- 4 days. Brother in July with colon cancer and sister recently diagnosed with colon cancer. ROS: General: Generally feels well. Appetite good. Eyes, Ears, nose, throat: Post nasal drip, rhinorrhea. No purulent nasal discharge, epistaxis. No hoarseness. Vision stable. Cardiac: No angina. 2 pillow orthopnea. GI: No heartburn, dysphagia. No diarrhea. Uro/DEVELOPMENT MGR: No dysuria, hesitancy, nocturia. Musculoskeletal: No pain. Neuro: No headache, focal weakness, tremor. Skin: No rash. Otherwise negative. IMMUNIZATIONS Prevnar 13 - 12/15/2006 Pneumovax - 10/26/2014 Influenza - xx COVID-19 - xx Allergies were verified and updated, and medications were reconciled with the patient at this visit. PHYSICAL EXAMINATION: BP 146/86 Pulse 87 Resp 16 Ht 157.5 cm (5' 2) Wt 86.1 kg (189 lb 12.8 oz) SpO2 95% BMI34.71 kg/m Gen: No acute distress. Cooperative with examination. ENT: Nares clear. Oral hygeine good. Pharynx clear. No sign of oral thrush. Resp: No stridor, accessory respiratory muscle use. No crackles, wheezes. CV: Regular rythm. Heart tones normal. Radial pulses normal. Abd: Non distended. MSK: No kyphoscoliosis. Ext: Warm and well perfused. No cyanosis. Skin: No rash, eczema, urticaria. Neuro: Mental status normal. No tremor. DATA REVIEW: PFT, 11/25/2021 IMPRESSION: Spirometry shows no obstruction.The reduced FVC suggests restriction. Recommend lung volumes if clinically indicated. Electronically Signed On 11-25-2021 16:15:22 EDT by Penny Garner M.D. Exhaled nitric oxide (Dorie), 11/25/2021: 5 (normal < 20). Component Latest Ref Rng & Units 11/25/2021 Abs Eosin <0.46 k/uL 0.71 (H) IgE <114.0 kU/l 30.7 CT chest, 12/05/2021 IMPRESSION: 1. No acute chest pathology 2. Unchanged elevation of the left hemidiaphragm 3. Again noted is scarring or atelectasis in the medial right middle lobe and right lower lobe Comparison: CT chest 12/03/2014 RESULT: Limitations: None. Lines, tubes, and devices: None. Lung parenchyma and airways: Elevation of the left hemidiaphragm. Linear areas of scarring or atelectasis in the medial right middle lobe and right lower lobe. No consolidation. Stable 4 mm nodule posterior left lower lobe (6:67). No new suspicious pulmonary nodule. The central airways are patent. Pleural space: No pleural effusion. No pleural thickening. Lower neck, lymph nodes, and mediastinum: The imaged thyroid gland is normal. No lymphadenopathy in the supraclavicular, axillary, mediastinal, or hilar regions. Heart, pericardium, and thoracic vessels: The thoracic aorta and main pulmonary artery are normal in caliber. The cardiac chambers are normal in size. No coronary artery atherosclerotic calcifications are noted, although the study is not optimized for coronary assessment. No pericardial effusion or thickening. Bones and soft tissues: No destructive bone lesion. Degenerative disease of the thoracic spine. Chest wall is unremarkable. Upper abdomen: No acute abnormality in the imaged upper abdomen. Residence Manager (topogram) images: No additional findings. ASSESSMENT/PLAN: 1. Asthma-COPD overlap syndrome (HCC) - ICD9: 493.20, ICD10: J44.9 (primary diagnosis) Symptomatically stable. Most recent PFT shows no obstruction. Restriction is secondary to diaphragm dysfunction and lower lobectomy. IgE level normal. Elevated eosinophils. Currently on high dose combination therapy. Monitor need for biologics. Continue Symbicort 160 mcg 2 inhalations twice daily. Rinse mouth after each use to help prevent oral thrush. Continue Singulair 1 tablet nightly. OTC antihistamine as needed during seasonal allergies. Albuterol HFA inhaler, 2 inhalations 10 15 minutes prior to activities associated with shortness ofbreath, and as needed for rescue relief of shortness of breath or wheezing, up to 4 times daily. Up to date on pneumococcal vaccines. Declines Covid vaccine. Did not receive annual influenza vaccine this year. 2. Cigarette smoker - ICD9: 305.1, ICD10: F17.210 Cessation encouraged. Physiologic and physical aspects of tobacco addiction as well as strategies for quitting were discussed. Counseling was given focusing on the harmful effects of this addiction especially given the patient's medical condition(s) which will be worsened because of the chemicals in tobacco. Currently on Wellbutrin. Patient is not motivated to quit smoking at this time. 3. Diaphragm dysfunction - ICD9: 519.4, ICD10: J98.6 CT chest stable. 4. Lung nodule < 6cm on CT - ICD9: 793.11, ICD10: R91.1 CT chest 12/05/2021: stable 4 mm nodule posterior left lower lobe. Last CT chest in our system was from 05/2009 and I do not appreciate this nodule. Will obtain CT images from [facility]. If 2 years of stability has not been established I would repeat CT chest in 1 year given patients smoking history and family history of cancer. 5. Family history of colon cancer - ICD9: V16.0, ICD10: Z80.0 Encouraged patient to have a colonoscopy. Patient declines, stating I just don't want to know. I addressed the questions of the patient, and she expressed understanding and acceptance of my answers. Florina Arenas PA-C documented in this encounterLake County [facility]04-27-2022 Miscellaneous Notes* Telephone Encounter - Cheyanne Cortez APRN.CNP - 12/17/2021 4:08 PM EDT PDMP website checked and validated. All prescriptions have been APPROPRIATELY filled. No suspiciousactivity was identified. 12/17/2021 by Cheyanne Cortez APRN.CNP * Telephone Encounter - Zafar Jean Ma - 12/17/2021 3:27 PM EDT BELEN: 11/10/2020 Last refill: 10/30/2021 QTY: 30 Refills: 0 * Telephone Encounter - Florina Cornejo Pss - 12/17/2021 3:19 PM EDT Patient is requesting: lorazepam 0.5mg 1 tablet daily as needed [facility] in [place]. documented in this encounterLake County [facility]04-21-2022 Miscellaneous Notes* Letter - Mammography Coordinator - 12/11/2021 1:04 PM EDT December 11, 2021 PID: [id number] Francis Diez [address] [address] Dear Ms. Diez, We are pleased to inform you that the results of your recent breast imaging exam on 12/11/2021 are normal. Early detection of cancer is very important. We also understand recommendations regarding breast cancer screening are controversial. Please discuss with your primary care provider which strategy is best for you and whether a mammogram is right for you. Your imaging studies and report will be kept on file at [facility] as part of your permanent medical record and are available for your continuing care. Thank you for allowing us to help in meeting your health care needs. Sincerely, Dr. Borges Interpreting Radiologist [facility] (Normal over 40) documented in this encounterLake County [facility]04-14-[facility]22 Miscellaneous Notes* Telephone Encounter - Heather Fairbanks LPN - 12/04/2021 3:41 PM EDT Spoke with pt and information listed below given. Pt verbalizes understanding. Pt has testing scheduled and Pulm apt. Heather Fairbanks LPN * Telephone Encounter - Kadi Rizzo APRN.CNP - 12/04/2021 2:38 PM EDT Please let Francis know that we've received the results of her pulmonary function testing. It shows lung disease that is restrictive-meaning COPD, emphysema, etc. She already has a CT of her chest that has been ordered. She needs to complete this. She also needs to establish with a superintendent transportation. Please assist her to schedule both of these appointments. Kadi Rizzo APRN.CNP documented in this encounterLake County [facility]-11-[facility]22 Instructions* Patient Instructions* Felicity Forrest APRN.CNP - 12/01/2021 11:37 AM EDT Heart Disease in Women Is heart disease a problem for women? Heart disease is the leading cause of of [place] women. More women from heart disease than from cancer. A heart attack can happen when there are problems with the blood vessels that bring blood to the heart (the coronary arteries). For example, fatty deposits called plaque may build up in the coronary arteries and make them narrower. The narrowing decreases blood flow to the heart. Plaque also increases the chance that blood clots may form and block a blood vessel, which can cause a heart attack orstroke. In the first year after a heart attack, women have an increased risk of . In the first 6 yearsafter a heart attack, they also have a higher risk of a second heart attack. Women are at high riskoften because they are older at the time of the heart attack and have other medical problems. Not everyone has the same symptoms. The most common symptoms of a heart attack include: Chest pain or pressure, squeezing, or fullness in the center of your chest that lasts more than a few minutes, or goes away and comes back (may feel like indigestion or heartburn) Pain or discomfort in one or both arms or shoulders, or in your back, neck, jaw, or stomach Trouble breathing Breaking out in a cold sweat for no known reason Along with these symptoms, you may also feel very tired, faint, or be sick to your stomach. Sometimes you can be having a heart attack and not know it. Many women have chest pain or pressure,but sometimes symptoms in women are different from men s symptoms. Or women may have additional symptoms, such as: Unexplained anxiety and nervousness Swelling of the ankles or lower legs Because they may not feel the typical pain in the left side of their chest, many women may ignore the symptoms of a heart attack. Call 911 for emergency help right away if you have these symptoms. Donot drive yourself to the hospital. Immediate emergency care improves your chances of survival and may help avoid damage to your heart. How can women lower their risk for heart disease? If you have high blood pressure, carefully follow your healthcare provider's instructions for keeping it under control. If you are a smoker, stop smoking. Try to keep a healthy weight. If you are overweight, talk to your provider about ways to lose weight. Eat a healthy diet that includes: ?Avoiding salty foods and not adding salt to food ?Increasing fiber, fruits, and vegetables ?Avoiding foods high in fat, cholesterol, and sugar Exercise according to your healthcare provider's instructions. Get enough rest and learn to use relaxation methods to help reduce stress. Treat and control medical conditions such as diabetes and high cholesterol. If you are taking hormone therapy, you and your healthcare provider should discuss the risks and benefits. Hormone therapy may increase the risk for heart disease or stroke. Talk with your provider about taking aspirin. Low-dose aspirin therapy reduces the risk of stroke for women. But it helps to lower a woman s risk of heart attack and other heart problems only if she is 65 or older. Make sure that your provider knows about any other medicines you are taking. If you decide you needto make changes in the way you live, you probably won't be able to turn your life around all at once. Try to develop healthy habits that incorporate your lifestyle goals. If you do, you will greatly decrease your chances for developing heart disease. You can get more information from: [place] Heart [id number]-BYG-USA-1 ( )www.heart.org Developed by [employer]. Published by [employer]. Copyright 2014 [employer] and/or one of its subsidiaries. All rights reserved. documented in this encounterLake County [facility]04-11-2022 History of Present illness Narrative* Felicity Forrest APRN.CNP - 12/01/2021 11:12 AM EDT Images from the original note were not included. [facility] SECTION OF REGIONAL CARDIOLOGY Cardiology ([facility]) [address] [facility] [id number] OUTPATIENT VISIT December 01, 2021 11:00 AM Chief Complaint Patient presents with: New Patient: chest pain History of Present Illness: Francis Diez is a 56 year old female who presents for cardiology evaluation. She has a PMhx of HTN, tobacco use, obesity, family hx of CAD. She explains in August she had an episode of chest pain while under emotional stress. She did take baby ASA and nitro but did not feel inclined to go to the ED for further evaluation. She also had associated heart pounding and will have heart pounding occasionally with activities or stress. She explains she stays busy and will exercise, weather permitting, by walking. She has not had chest pain with activity. We reviewed risk factors and modifications. She has been recommended a stress echocardiogram for further evaluation. PAST MEDICAL HISTORY Diagnosis Date Allergies ASTHMA UNSPECIFIED 07/08/2005 Bronchiectasis (HCC) CHRONIC AIRWAY OBSTRUCTION NEC 07/08/2005 Depression Diaphragm dysfunction HYPERTENSION NOS 07/08/2005 PAST SURGICAL HISTORY Procedure Laterality Date LAPS SURG CHOLECYSTECTOMY W/CHOLANGIOGRAPHY 04-21-[address] [facility] [address] Guillen RMVL LUNG OTHER THAN PNEUMONECTOMY 1 LOBE LOBECT 1992 Left - bronchiectasis TOTAL ABDOMINAL HYSTERECT W/WO RMVL TUBE OVARY Hysterectomy, CARMENCITA FAMILY HISTORY Problem Relation Age of Onset other (Lung cancer [Other]) Mother Asthma Mother Diabetes Father Dialysis Father other (Myocardial infarction) Sister Colon Cancer Brother 2 brothers. other (Myocardial infarction) Brother Social History Tobacco Use Smoking status: Current Every Day Smoker Packs/day: 0.50 Years: 32.00 Pack years: 16.00 Types: Cigarettes Start date: 1982 Smokeless tobacco: Never Used Tobacco comment: Did not smoke during pregnancies. Former 2 ppd smoker Vaping Use Vaping Use: Never used Substance Use Topics Alcohol use: No Drug use: No Cardiac Risk Factors: age (male over 45, female over 55), history of smoking, obesity, hypertension, family history of CAD ALLERGIES Allergen Reactions Benadryl [Diphenhyd* Shortness of Breath She is not sure of the reaction. Was given it in the ER years ago. Environmental [Othe* Shortness of Breath pollen Penicillins Hives Medications: Current Outpatient Medications Medication Sig Dispense Refill montelukast (SINGULAIR) 10 mg tablet Take 1 tablet by mouth once daily. 30 tablet 5 potassium chloride SR (MICRO-K) 10 mEq CR capsule TAKE 1 CAPSULE BY MOUTH TWICE DAILY 180 capsule 3 nitroglycerin sublingual (NITROQUICK) 0.4 mg SL tablet Dissolve 1 tablet under the tongue as needed. FOR CHEST PAIN. IF NO RELIEF CALL 911 25 tablet 0 traZODone (DESYREL) 100 mg tablet TAKE 3 TABLETS EVERY DAY 270 tablet 1 furosemide (LASIX) 20 mg tablet Take 1 tablet by mouth once daily. 90 tablet 1 buPROPion XL (WELLBUTRIN XL) 300 mg 24 hr tablet Take 1 tablet by mouth once daily. 90 tablet 1 lisinopril (ZESTRIL, PRINIVIL) 10 mg tablet TAKE 1 TABLET BY MOUTH ONCE DAILY 90 tablet 3 hydroCHLOROthiazide (HYDRODIURIL, ESIDRIX) 25 mg tablet TAKE 1 TABLET BY MOUTH ONCE DAILY 90 tablet3 albuterol HFA (VENTOLIN HFA) 90 mcg/actuation inhaler Inhale 2 Puffs as instructed every 4 hours asneeded for wheezing/shortness of breath. 54 g 3 naproxen (NAPROSYN) 500 mg tablet Take 1 tablet by mouth twice daily as needed (for pain/inflammation). Take with food. 30 tablet 1 albuterol (PROVENTIL) 2.5 mg /3 mL (0.083 %) nebulizer solution Use 3 mL via nebulizer every 4 hours as needed for wheezing/shortness of breath. J44.9 50 Package 3 budesonide-formoterol (SYMBICORT) 160-4.5 mcg/actuation inhaler Inhale 2 Puffs as instructed twice daily. 3 Inhaler 3 fluticasone (FLONASE) 50 mcg/actuation nasal spray Use 2 Sprays in each nostril once daily. ADMINISTER 2 SPRAYS EACH NOSTRIL DAILY, RINSE MOUTH OUT AFTER USE. 3 Bottle 3 ipratropium (ATROVENT) 0.02 % nebulizer solution Use 2.5 mL via nebulizer four times daily as needed. OVER 5-15 MINUTES FOR WHEEZING OR SHORTNESS OF BREATH J44.9 50 Vial 5 COMPOUNDED PRESCRIPTION Oxygen 2L at night and as needed 11 COMPOUNDED PRESCRIPTION Nebulizer machine DX: 496/143.90 1 0 No current facility-administered medications for this visit. Review of Systems Constitutional: Negative for chills, diaphoresis, fever, malaise/fatigue and weight loss. HENT: Negative for congestion, ear pain, nosebleeds, sinus pain and sore throat. Eyes: Negative for pain. Respiratory: Negative for cough, shortness of breath and wheezing. Cardiovascular: Positive for chest pain and palpitations. Negative for orthopnea, claudication, legswelling and PND. Gastrointestinal: Negative for abdominal pain, blood in stool and melena. Genitourinary: Negative for hematuria. Musculoskeletal: Negative for falls. Neurological: Negative for dizziness, tingling, sensory change, speech change, focal weakness, lossof consciousness, weakness and headaches. Endo/Heme/Allergies: Does not bruise/bleed easily. Psychiatric/Behavioral: Negative for depression, memory loss and suicidal ideas. The patient is nervous/anxious. The patient does not have insomnia. Physical Examination: Vitals:BP 120/88 Pulse 84 BP w/Orthostatic Vitals Date and Time Orthostatic BP Orthostatic Pulse BP Pulse BP Position BP Site BP Cuff Size 12/01/21 1111 -- -- 120/88 84 Sitting Right Arm Large Adult Last 2 Encounter Wt Readings: Date: Wt: 11/25/2021 187 lb (84.8 kg) 11/25/2021 187 lb 9.6 oz (85.1 kg) Physical Exam HENT: Head: Normocephalic. Eyes: Pupils: Pupils are equal, round, and reactive to light. Cardiovascular: Rate and Rhythm: Normal rate. Pulses: Radial pulses are 2+ on the right side and 2+ on the left side. Dorsalis pedis pulses are 2+ on the right side and 2+ on the left side. Heart sounds: Normal heart sounds, S1 normal and S2 normal. Pulmonary: Effort: Pulmonary effort is normal. No accessory muscle usage or respiratory distress. Breath sounds: Normal breath sounds. Abdominal: General: Bowel sounds are normal. Palpations: Abdomen is soft. Musculoskeletal: General: Normal range of motion. Cervical back: Normal range of motion. Skin: General: Skin is warm and dry. Neurological: Mental Status: She is alert and oriented to person, place, and time. Gait: Gait is intact. Psychiatric: Mood and Affect: Affect normal. Cognition and Memory: Memory normal. Judgment: Judgment normal. Most Recent Cardiac Testing Stress echo pending Echocardiogram 2010 EF 60% no WMA Assessment and Plan: Chest pain -x1 significant episode associated with stress/aniety in August -does not endorse CP with activity -stress echocardiogram ordered for risk stratification HTN -120/88 -Continue current medication(s) -Encouraged dietary sodium restriction/DASH diet -Recommended regular aerobic exercise. -Recommend home blood pressure monitoring, to bring results in on next visit -Discussed need and benefit for weight loss. -Goal of BP <130/80 Tobacco use -Encouraged cessation -Physiologic and physical aspects of tobacco addiction as well as strategies for quitting were discussed. -Counseling was given focusing on the harmful effects of this addiction especially given the patient's medical condition(s) which will be worsened because of the chemicals in tobacco. Obesity -lifestyle modifications -encouraged a heart healthy diet, routine exercise and weight loss Family hx of CAD -stress echocardiogram pending -encouraged routine activity and heart healthy diet for risk factor modification Lipids -lipid panel 11/08/2021 LDL 94 -not currently on statin Follow up in 1 year. Sooner for abnormal testing results. Patient to call with any issues or concerns prior to then. Electronically signed by Felicity Forrest APRN.CNP on December 01, 2021, 11:14 AM documented in this encounterLake County [facility]04-05-2022 Procedure note* Thierno Carlson RRT - 11/25/2021 9:36 AM EDT Associated Order(s): NITRIC OXIDE, EXHALED RESPIRATORY THERAPY ORAL EXHALED NITRIC OXIDE SERVICE DATE: 11/25/2021 SERVICE TIME: 9:36 AM Oral Exhaled Nitric Oxide measurement: 5.0 (ppb) Normal: Adult 5-20 ppb, pediatric (<12 years) 5-15 ppb High Normal / Increased: Adult 20-35 ppb, pediatric (<12 years) 15-25 ppb Moderately raised exhaled Nitric Oxide may indicate underlying inflammation, but note that: Cold and influenza can raise exhaled Nitric Oxide and some patients have higher baseline exhaled Nitric Oxide levels than others. High: Adult >35 ppb, pediatric (<12 years) >25 ppb Indicative of ongoing eosinophilic inflammation. Symptomatic patient likely to respond to steroids. Possible causes (if already on steroids): Poor compliance, recent allergen exposure, steroid dose inadequate, and steroid resistance. Note that not all patients with high exhaled nitric oxide levels display symptoms. Oral Exhaled Nitric Oxide measurement (Previous Encounters) Test Date Oral Exhaled Nitric Oxide (ppb) 11/25/2021 5.0 NAME: Thierno Carlson RRT PATIENT NAME: Francis Diez DATE: November 25, 2021 TIME: 9:36 AM documented in this encounterLake County [facility]04-[facility] History of Present illness Narrative* Thierno Carlson RRT - 11/25/2021 9:35 AM EDT PULM FUNCTION SMARTBLOCK: Provider: Penny Garner MD Assisting Tech: Thierno Carlson RRT Exhaled Nitric Oxide: 1 System: [id number] documented in this encounterLake County [facility]04-05-2022 History of Present illness Narrative* Penny Garner MD - 11/25/2021 8:45 AM EDT Images from the original note were not included. . Respiratory [place] Note Patient name: Francis Diez PCP: Mariluz High MD CC: COPD HPI: Francis Diez 56 year old female smoker with PMH significant for bronchiectasis s/p LLL resection for infection, left diaphragmatic dysfunction, chronic asthmatic bronchitis, COPD, HTN last seenin Pul[facility] in 2014. Pulmonary history dates back to young adulthood with history of recurrent bronchitis/pneumonia following a severe pneumonia. Noted more issues with shortness of breath, intermittent wheezing after childbirth. She was on short acting beta agonist as needed. More recentlystarted on Symbicort 160/4.5. She continues to have intermittent dyspnea with occasional wheezing. No significant cough or sputum production. She was allergy tested years ago and is allergic to grass, molds, pollen. She never required immunotherapy. Shortness of breath exacerbated by activity, during allergy season and with rainy weather. She has not noted much change in her shortness of breath since starting her Symbicort inhaler. She uses her nebulizer mainly when allergies are active. She has significant restrictive lung disease related to her previous lung resection and diaphragmatic dysfunction. Spirometry today most consistent with severe restriction, unchanged from PFT in 2015. DATA: FeNO 5 ppb PFT today: PFT 11/14/14: FVC 1.80 L 55% FEV1 1.51 L 61% FEV1/FVC 84% No change with bronchodilators TLC 4.27 L 86% FRC 3.10 L 120% RV 2.47 L 140% DLCO 14.7 62% DLCO/VA 5.25 130 % Review of pulmonary function test show restriction and obstruction with air trapping and normal diffusing capacity Labs: WBC 3.70 - 11.00 k/uL 6.94 RBC 3.90 - 5.20 m/uL 4.85 Hemoglobin 11.5 - 15.5 g/dL 14.5 Hematocrit 36.0 - 46.0 % 45.9 MCV 80.0 - 100.0 fL 94.6 MCH 26.0 - 34.0 pg 29.9 MCHC 30.5 - 36.0 g/dL 31.6 RDW-CV 11.5 - 15.0 % 13.0 Platelet Count 150 - 400 k/uL 262 MPV 9.0 - 12.7 fL 9.8 Neut% % 38.3 Abs Neut 1.45 - 7.50 k/uL 2.66 Lymph% % 42.4 Abs Lymph 1.00 - 4.00 k/uL 2.94 [place]% % 6.3 Abs [place] <0.87 k/uL 0.44 Eosin% % 11.5 Abs Eosin <0.46 k/uL 0.80 High Baso% % 1.2 Abs Baso <0.11 k/uL 0.08 Immature Gran % % 0.3 Abs Immature Gran <0.10 k/uL <0.03 NRBC /100 WBC 0.0 Absolute nRBC <0.01 k/uL <0.01 Diff Type Auto BUN 7 - 21 mg/dL 18 Creatinine 0.58 - 0.96 mg/dL 0.84 Sodium 136 - 144 mmol/L 141 Potassium 3.7 - 5.1 mmol/L 4.4 Chloride 97 - 105 mmol/L 104 CO2 22 - 30 mmol/L 29 Anion Gap 9 - 18 mmol/L 8 Low Estimated Glomerular Filtration Rate >=60 mL/min/1.73m 81 Laboratory testing pertinent for eosinophilia Imaging / Diagnostic Studies: DATE OF EXAM: Dec 03 2014 2:08PM [facility] 2914 - CT CHEST PE / CT chest IV contrast: HISTORY: 49 years old Clinical information: Bronchiectasis without acute exacerbation (HCC) Comparison: June 03, 2009 RESULT: Findings: CT CHEST FINDINGS: There is marked elevation of the LEFT hemidiaphragm with portions of the abdominal contents upward in this area. RIGHT middle lobe 3:30 stable phenomenon is seen in the RIGHT middle and There is no evidence of a pulmonary embolus.. No evidence of an aneurysm is seen. The heart size is within normal limits. The pulmonary vascularity is unremarkable.. No pulmonary nodules are seen. There is some LEFT lower lobe and lingular atelectasis or scarring. There is no evidence of a pleural effusion or infiltrate. No hilar or mediastinal adenopathy is seen. No bony abnormalities are seen. Heart size is within normal limits. IMPRESSION: 1. No evidence for pulmonary embolus or an aortic dissection. 2. There is again noted to be marked elevation of the LEFT hemidiaphragm similar to the previous study 3. Small amount of lingular and LEFT lower lobe atelectasis or scarring I personally reviewed images which shows elevated left hemidiaphragm, bronchiectasis, and mosaic attenuation consistent with airways disease PAST MEDICAL HISTORY Diagnosis Date Allergies ASTHMA UNSPECIFIED 07/08/2005 Bronchiectasis (HCC) CHRONIC AIRWAY OBSTRUCTION NEC 07/08/2005 Depression Diaphragm paralysis HYPERTENSION NOS 07/08/2005 ALLERGIES Allergen Reactions Benadryl [Diphenhyd* Shortness of Breath She is not sure of the reaction. Was given it in the ER years ago. Environmental [Othe* Shortness of Breath pollen Penicillins Hives potassium chloride SR (MICRO-K) 10 mEq CR capsule TAKE 1 CAPSULE BY MOUTH TWICE DAILY nitroglycerin sublingual (NITROQUICK) 0.4 mg SL tablet Dissolve 1 tablet under the tongue as needed. FOR CHEST PAIN. IF NO RELIEF CALL 911 LORazepam (ATIVAN) 0.5 mg Take 1 tablet by mouth once daily as needed for up to 30 days. traZODone (DESYREL) 100 mg tablet TAKE 3 TABLETS EVERY DAY furosemide (LASIX) 20 mg tablet Take 1 tablet by mouth once daily. buPROPion XL (WELLBUTRIN XL) 300 mg 24 hr tablet Take 1 tablet by mouth once daily. lisinopril (ZESTRIL, PRINIVIL) 10 mg tablet TAKE 1 TABLET BY MOUTH ONCE DAILY montelukast (SINGULAIR) 10 mg tablet TAKE 1 TABLET BY MOUTH ONCE DAILY hydroCHLOROthiazide (HYDRODIURIL, ESIDRIX) 25 mg tablet TAKE 1 TABLET BY MOUTH ONCE DAILY albuterol HFA (VENTOLIN HFA) 90 mcg/actuation inhaler Inhale 2 Puffs as instructed every 4 hours asneeded for wheezing/shortness of breath. naproxen (NAPROSYN) 500 mg tablet Take 1 tablet by mouth twice daily as needed (for pain/inflammation). Take with food. albuterol (PROVENTIL) 2.5 mg /3 mL (0.083 %) nebulizer solution Use 3 mL via nebulizer every 4 hours as needed for wheezing/shortness of breath. J44.9 budesonide-formoterol (SYMBICORT) 160-4.5 mcg/actuation inhaler Inhale 2 Puffs as instructed twice daily. fluticasone (FLONASE) 50 mcg/actuation nasal spray Use 2 Sprays in each nostril once daily. ADMINISTER 2 SPRAYS EACH NOSTRIL DAILY, RINSE MOUTH OUT AFTER USE. ipratropium (ATROVENT) 0.02 % nebulizer solution Use 2.5 mL via nebulizer four times daily as needed. OVER 5-15 MINUTES FOR WHEEZING OR SHORTNESS OF BREATH J44.9 COMPOUNDED PRESCRIPTION Oxygen 2L at night and as needed COMPOUNDED PRESCRIPTION Nebulizer machine DX: 496/143.90 Social History Tobacco Use Smoking status: Current Every Day Smoker Packs/day: 0.50 Years: 32.00 Pack years: 16.00 Types: Cigarettes Start date: 1982 Smokeless tobacco: Never Used Tobacco comment: Did not smoke during pregnancies. Former 2 ppd smoker Vaping Use Vaping Use: Never used Substance Use Topics Alcohol use: No Drug use: No FAMILY HISTORY Problem Relation Age of Onset other (Lung cancer [Other]) Mother Asthma Mother Diabetes Father Dialysis Father other (Myocardial infarction) Sister Colon Cancer Brother 2 brothers. other (Myocardial infarction) Brother PAST SURGICAL HISTORY Procedure Laterality Date LAPS SURG CHOLECYSTECTOMY W/CHOLANGIOGRAPHY 04-21-[address] [facility] [address] Guillen RMVL LUNG OTHER THAN PNEUMONECTOMY 1 LOBE LOBECT 1992 Left - bronchiectasis TOTAL ABDOMINAL HYSTERECT W/WO RMVL TUBE OVARY Hysterectomy, CARMENCITA PMH, Social history, family history and surgical history reviewed and updated in EMR REVIEW OF SYSTEMS: CONSTITUTIONAL: No fevers, chills, nightsweats, unintended weight loss HEENT: Denies headache, nasal congestion/sinus symptoms, allergy problems. EYES: No diplopia or blurry vision. CARDIOVASCULAR: No chest pain, palpitations, orthopnea, PND. Edema controlled with diuretics. PULM: See HPI GI: No dysphagia/odynophagia, problematic reflux, change in bowel habits. : No urinary complaints, including dysuria, gross hematuria or pyuria. NEURO: No new balance problems, peripheral weakness/paresthesias or numbness of concern. MUSC-SKEL: No new joint pain, swelling, or erythema. PSY: No concerns regarding depression, anxiety INTEGUMENTARY: No new skin changes, rashes, eczema, skin sensitivity PHYSICAL EXAMINATION: BP 121/69 Pulse 82 Resp 16 Wt 187 lb (84.8kg) SpO2 94% General Appearance: Obese female, NAD Skin: Skin color, texture, turgor normal, no suspicious rashes or lesions. Head: Normocephalic, no masses, lesions, tenderness or abnormalities. Eyes: Sclera, conjunctiva normal Oropharynx: Edentulous, no thrush Neck: No JVD, no masses Lungs: Dullness to percussion left base, bilateral wheezing Heart: Regular rate and rhythm, no murmurs Extremities: No edema or clubbing Musculoskeletal: No joint swelling, deformity, or tenderness. Lymph Nodes: No cervical lymphadenopathy and No supraclavicular lymphadenopathy. Assessment/Plan: 1. Asthma COPD overlap syndrome -No significant change noted on PFTs. Mainly has restriction due to her diaphragm dysfunction and left lower lobectomy -FeNO normal so would continue Symbicort at 160/4.5 with as needed albuterol -Allergies may be a contributing factor -Refilled Singulair -Instructed patient to obtain OTC antihistamine to use during allergy season -Check IgE level and absolute eosinophil count -Smoking cessation strongly encouraged 2. Shortness of breath -Etiology due to underlying obstructive lung disease, restrictive lung disease from her diaphragm dysfunction -Update chest CT 3. Cigarette smoker -Current half pack a day smoker former 2 pack a day smoker for over 30 years with sequelae of COPD -Currently on Wellbutrin to aid in smoking cessation 4. Diaphragm dysfunction -See #2 Penny Garner MD Respiratory [place] documented in this encounterLake [facility] History of Present illness Narrative* Thierno Carlson RRT - 11/25/2021 8:05 AM EDT PULM FUNCTION SMARTBLOCK: Provider: Penny Garner MD Assisting Tech: Thierno Carlson RRT Spirometry: 1 System: [id number] documented in [facility] of Present illness Narrative* Patricia Batres, RT(R) - 03/25/2021 11:30 AM EDT Radiology Service Progress Note PATIENT NAME: Francis Diez DATE OF SERVICE: March 25, 2021 TIME: 11:25 AM PATIENT IDENTITY VERIFICATION COMPLETED USING TWO (2) IDENTIFIERS: Name and Date of confirmedby patient verbally. FALL SCREENING: Has the patient had 2 falls in the last year or 1 fall with injury or currently using an Ambulatory Assistive Device (Walker, Cane, Wheelchair, Crutches, etc.)? No PATIENT GENDER DATA: Female. status: : No status: NO. PATIENT RELEVANT IMPLANT DATA REVIEWED: Yes RADIOLOGY DEPARTMENT: General X-ray: Exam(s) Completed: Lower Extremity X- Ray(s): Knee, AP / Lat / Tunne / Merchant Left and Wt. Bearing PERIPHERAL IV DATA: Not applicable SIGNED BY: RT Shilpa(R) March 25, 2021 11:25 AM [facility] History of Past illness Narrative* Problem Noted Date Resolved Date Cholecystitis with cholelithiasis 04/08/2013 10/26/2014 Palpitations 04/22/2006 10/26/2014 Unspecified asthma(493.90) 07/08/200511/26 documented as of this encounter (statuses as of 11/25/2021) [place] [id number] History of Past illness Narrative* Problem Noted Date Resolved Date Cholecystitis with cholelithiasis 04/08/2013 10/26/2014 Palpitations 04/22/2006 10/26/2014 Unspecified asthma(493.90) 07/08/200511/26 documented as of this encounter (statuses as of 11/25/2021) [address]17-2013 History of Past illness Narrative* Problem Noted Date Resolved Date Cholecystitis with cholelithiasis 04/08/2013 10/26/2014 Palpitations 04/22/2006 10/26/2014 Unspecified asthma(493.90) 07/08/200511/26 documented as of this encounter (statuses as of 12/01/2021) [address]17-2013 History of Past illness Narrative* Problem Noted Date Resolved Date Cholecystitis with cholelithiasis 04/08/2013 10/26/2014 Palpitations 04/22/2006 10/26/2014 Unspecified asthma(493.90) 07/08/200511/26 documented as of this encounter (statuses as of 12/04/2021) [address]17-2013 History of Past illness Narrative* Problem Noted Date Resolved Date Cholecystitis with cholelithiasis 04/08/2013 10/26/2014 Palpitations 04/22/2006 10/26/2014 Unspecified asthma(493.90) 07/08/200511/26 documented as of this encounter (statuses as of 12/13/2021) [address]17-2013 History of Past illness Narrative* Problem Noted Date Resolved Date Cholecystitis with cholelithiasis 04/08/2013 10/26/2014 Palpitations 04/22/2006 10/26/2014 Unspecified asthma(493.90) 07/08/200511/26 documented as of this encounter (statuses as of 12/17/2021) [place] [address]17-2013 History of Past illness Narrative* Problem Noted Date Resolved Date Cholecystitis with cholelithiasis 04/08/2013 10/26/2014 Palpitations 04/22/2006 10/26/2014 Unspecified asthma(493.90) 07/08/200511/26 documented as of this encounter (statuses as of 01/12/2022) [place] [address]17-2013 History of Past illness Narrative* Problem Noted Date Resolved Date Cholecystitis with cholelithiasis 04/08/2013 10/26/2014 Palpitations 04/22/2006 10/26/2014 Unspecified asthma(493.90) 07/08/200511/26 documented as of this encounter (statuses as of 01/14/2022) [address]17-2013 History of Past illness Narrative* Problem Noted Date Resolved Date Cholecystitis with cholelithiasis 04/08/2013 10/26/2014 Palpitations 04/22/2006 10/26/2014 Unspecified asthma(493.90) 07/08/200511/26 documented as of this encounter (statuses as of 02/18/2022) [address]17-2013 History of Past illness Narrative* Problem Noted Date Resolved Date Cholecystitis with cholelithiasis 04/08/2013 10/26/2014 Palpitations 04/22/2006 10/26/2014 Unspecified asthma(493.90) 07/08/200511/26 documented as of this encounter (statuses as of 02/18/2022) [address]17-2013 History of Past illness Narrative* Problem Noted Date Resolved Date Cholecystitis with cholelithiasis 04/08/2013 10/26/2014 Palpitations 04/22/2006 10/26/2014 Unspecified asthma(493.90) 07/08/200511/26 documented as of this encounter (statuses as of 02/25/2022) [address]17-2013 History of Past illness Narrative* Problem Noted Date Resolved Date Cholecystitis with cholelithiasis 04/08/2013 10/26/2014 Palpitations 04/22/2006 10/26/2014 Unspecified asthma(493.90) 07/08/200511/26 documented as of this encounter (statuses as of 02/25/2022) [place] [address]17-2013 History of Past illness Narrative* Problem Noted Date Resolved Date Cholecystitis with cholelithiasis 04/08/2013 10/26/2014 Palpitations 04/22/2006 10/26/2014 Unspecified asthma(493.90) 07/08/200511/26 documented as of this encounter (statuses as of 02/26/2022) [place] [address]17-2013 History of Past illness Narrative* Problem Noted Date Resolved Date Cholecystitis with cholelithiasis 04/08/2013 10/26/2014 Palpitations 04/22/2006 10/26/2014 Unspecified asthma(493.90) 07/08/200511/26 documented as of this encounter (statuses as of 03/04/2022) [place] [address]-2013 History of Past illness Narrative* Problem Noted Date Resolved Date Cholecystitis with cholelithiasis 04/08/2013 10/26/2014 Palpitations 04/22/2006 10/26/2014 Unspecified asthma(493.90) 07/08/200511/26 documented as of this encounter (statuses as of 04/13/2022) [place] [address]17-2013 History of Past illness Narrative* Problem Noted Date Resolved Date Cholecystitis with cholelithiasis 04/08/2013 10/26/2014 Palpitations 04/22/2006 10/26/2014 Unspecified asthma(493.90) 07/08/200511/26 documented as of this encounter (statuses as of 04/28/2022) [address]17-2013 History of Past illness Narrative* Problem Noted Date Resolved Date Cholecystitis with cholelithiasis 04/08/2013 10/26/2014 Palpitations 04/22/2006 10/26/2014 Unspecified asthma(493.90) 07/08/200511/26 documented as of this encounter (statuses as of 05/27/2022) [address]17-2013 History of Past illness Narrative* Problem Noted Date Resolved Date Cholecystitis with cholelithiasis 04/08/2013 10/26/2014 Palpitations 04/22/2006 10/26/2014 Unspecified asthma(493.90) 07/08/200511/26 documented as of this encounter (statuses as of 05/29/2022) [place] [address]2013 History of Past illness Narrative* Problem Noted Date Resolved Date Cholecystitis with cholelithiasis 04/08/2013 10/26/2014 Palpitations 04/22/2006 10/26/2014 Unspecified asthma(493.90) 07/08/200511/26 documented as of this encounter (statuses as of 05/29/2022) [place] [address]-2013 History of Past illness Narrative* Problem Noted Date Resolved Date Cholecystitis with cholelithiasis 04/08/2013 10/26/2014 Palpitations 04/22/2006 10/26/2014 Unspecified asthma(493.90) 07/08/200511/26 documented as of this encounter (statuses as of 07/09/2022) [address]17-2013 History of Past illness Narrative* Problem Noted Date Resolved Date Cholecystitis with cholelithiasis 04/08/2013 10/26/2014 Palpitations 04/22/2006 10/26/2014 Unspecified asthma(493.90) 07/08/200511/26 documented as of this encounter (statuses as of 07/20/2022) [place] [address]2013 History of Past illness Narrative* Problem Noted Date Resolved Date Cholecystitis with cholelithiasis 04/08/2013 10/26/2014 Palpitations 04/22/2006 10/26/2014 Unspecified asthma(493.90) 07/08/200511/26 documented as of this encounter (statuses as of 09/15/2022) [address]17-2013 History of Past illness Narrative* Problem Noted Date Resolved Date Cholecystitis with cholelithiasis 04/08/2013 10/26/2014 Palpitations 04/22/2006 10/26/2014 Unspecified asthma(493.90) 07/08/200511/26 documented as of this encounter (statuses as of 10/01/2022) [address]17-2013 History of Past illness Narrative* Problem Noted Date Resolved Date Cholecystitis with cholelithiasis 04/08/2013 10/26/2014 Palpitations 04/22/2006 10/26/2014 Unspecified asthma(493.90) 07/08/200511/26 documented as of this encounter (statuses as of 10/21/2022) [address]17-2013 History of Past illness Narrative* Problem Noted Date Resolved Date Cholecystitis with cholelithiasis 04/08/2013 10/26/2014 Palpitations 04/22/2006 10/26/2014 Unspecified asthma(493.90) 07/08/200511/26 documented as of this encounter (statuses as of 10/26/2022) [place] [address]-2013 History of Past illness Narrative* Problem Noted Date Resolved Date Cholecystitis with cholelithiasis 04/08/2013 10/26/2014 Palpitations 04/22/2006 10/26/2014 Unspecified asthma(493.90) 07/08/200511/26 documented as of this encounter (statuses as of 11/23/2022) [address]17-2013 History of Past illness Narrative* Problem Noted Date Resolved Date Cholecystitis with cholelithiasis 04/08/2013 10/26/2014 Palpitations 04/22/2006 10/26/2014 Unspecified asthma(493.90) 07/08/200511/26 documented as of this encounter (statuses as of 11/25/2022) [address]17-2013 History of Past illness Narrative* Problem Noted Date Resolved Date Cholecystitis with cholelithiasis 04/08/2013 10/26/2014 Palpitations 04/22/2006 10/26/2014 Unspecified asthma(493.90) 07/08/200511/26 documented as of this encounter (statuses as of 11/26/2022) [address]17-2013 History of Past illness Narrative* Problem Noted Date Resolved Date Cholecystitis with cholelithiasis 04/08/2013 10/26/2014 Palpitations 04/22/2006 10/26/2014 Unspecified asthma(493.90) 07/08/200511/26 documented as of this encounter (statuses as of 11/27/2022) [address]17-2013 History of Past illness Narrative* Problem Noted Date Resolved Date Cholecystitis with cholelithiasis 04/08/2013 10/26/2014 Palpitations 04/22/2006 10/26/2014 Unspecified asthma(493.90) 07/08/200511/26 documented as of this encounter (statuses as of 11/30/2022) [address]17-2013 History of Past illness Narrative* Problem Noted Date Resolved Date Cholecystitis with cholelithiasis 04/08/2013 10/26/2014 Palpitations 04/22/2006 10/26/2014 Unspecified asthma(493.90) 07/08/200511/26 documented as of this encounter (statuses as of 11/30/2022) [place] [address]-2013 History of Past illness Narrative* Problem Noted Date Resolved Date Cholecystitis with cholelithiasis 04/08/2013 10/26/2014 Palpitations 04/22/2006 10/26/2014 Unspecified asthma(493.90) 07/08/200511/26 documented as of this encounter (statuses as of 12/18/2022) [address]17-2013 History of Past illness Narrative* Problem Noted Date Resolved Date Cholecystitis with cholelithiasis 04/08/2013 10/26/2014 Palpitations 04/22/2006 10/26/2014 Unspecified asthma(493.90) 07/08/200511/26 documented as of this encounter (statuses as of 12/21/2022) [address]17-2013 History of Past illness Narrative* Problem Noted Date Resolved Date Cholecystitis with cholelithiasis 04/08/2013 10/26/2014 Palpitations 04/22/2006 10/26/2014 Unspecified asthma(493.90) 07/08/200511/26 documented as of this encounter (statuses as of 12/22/2022) [place] [address]2013 History of Past illness Narrative* Problem Noted Date Resolved Date Cholecystitis with cholelithiasis 04/08/2013 10/26/2014 Palpitations 04/22/2006 10/26/2014 Unspecified asthma(493.90) 07/08/200511/26 documented as of this encounter (statuses as of 12/22/2022) [place] [address]2013 History of Past illness Narrative* Problem Noted Date Resolved Date Cholecystitis with cholelithiasis 04/08/2013 10/26/2014 Palpitations 04/22/2006 10/26/2014 Unspecified asthma(493.90) 07/08/200511/26 documented as of this encounter (statuses as of 12/24/2022) [place] [address]2013 History of Past illness Narrative* Problem Noted Date Resolved Date Cholecystitis with cholelithiasis 04/08/2013 10/26/2014 Palpitations 04/22/2006 10/26/2014 Unspecified asthma(493.90) 07/08/200511/26 documented as of this encounter (statuses as of 12/24/2022) [place] [address]2013 History of Past illness Narrative* Problem Noted Date Resolved Date Cholecystitis with cholelithiasis 04/08/2013 10/26/2014 Palpitations 04/22/2006 10/26/2014 Unspecified asthma(493.90) 07/08/200511/26 documented as of this encounter (statuses as of 12/26/2022) [place] [address]2013 History of Past illness Narrative* Problem Noted Date Resolved Date Cholecystitis with cholelithiasis 04/08/2013 10/26/2014 Palpitations 04/22/2006 10/26/2014 Unspecified asthma(493.90) 07/08/200511/26 documented as of this encounter (statuses as of 12/28/2022) [place] [address]2013 History of Past illness Narrative* Problem Noted Date Resolved Date Cholecystitis with cholelithiasis 04/08/2013 10/26/2014 Palpitations 04/22/2006 10/26/2014 Unspecified asthma(493.90) 07/08/200511/26 documented as of this encounter (statuses as of 12/29/2022) [address]17-2013 History of Past illness Narrative* Problem Noted Date Diagnosed Date Resolved Date Cholecystitis with cholelithiasis 04/08/2013 10/26/2014 Palpitations 04/22/2006 10/26/2014 Unspecified asthma(493.90) 07/08/2005 0 11/26/2014 documented as of this encounter (statuses as of 03/01/2023) [address]17-2013 History of Past illness Narrative* Problem Noted Date Diagnosed Date Resolved Date Cholecystitis with cholelithiasis 04/08/2013 10/26/2014 Palpitations 04/22/2006 10/26/2014 Unspecified asthma(493.90) 07/08/2005 0 11/26/2014 documented as of this encounter (statuses as of 03/02/2023) [address]17-2013 History of Past illness Narrative* Problem Noted Date Diagnosed Date Resolved Date Cholecystitis with cholelithiasis 04/08/2013 10/26/2014 Palpitations 04/22/2006 10/26/2014 Unspecified asthma(493.90) 07/08/2005 0 11/26/2014 documented as of this encounter (statuses as of 03/02/2023) [place] [address]2013 History of Past illness Narrative* Problem Noted Date Diagnosed Date Resolved Date Cholecystitis with cholelithiasis 04/08/2013 10/26/2014 Palpitations 04/22/2006 10/26/2014 Unspecified asthma(493.90) 07/08/2005 0 11/26/2014 documented as of this encounter (statuses as of 03/03/2023) [address]17-2013 History of Past illness Narrative* Problem Noted Date Diagnosed Date Resolved Date Cholecystitis with cholelithiasis 04/08/2013 10/26/2014 Palpitations 04/22/2006 10/26/2014 Unspecified asthma(493.90) 07/08/2005 0 11/26/2014 documented as of this encounter (statuses as of 05/18/2023) [address]17-2013 History of Past illness Narrative* Problem Noted Date Diagnosed Date Resolved Date Cholecystitis with cholelithiasis 04/08/2013 10/26/2014 Palpitations 04/22/2006 10/26/2014 Unspecified asthma(493.90) 07/08/2005 0 11/26/2014 documented as of this encounter (statuses as of 05/21/2023) [address]17-2013 History of Past illness Narrative* Problem Noted Date Diagnosed Date Resolved Date Cholecystitis with cholelithiasis 04/08/2013 10/26/2014 Palpitations 04/22/2006 10/26/2014 Unspecified asthma(493.90) 07/08/2005 0 11/26/2014 documented as of this encounter (statuses as of 05/22/2023) [place] [address] History of Past illness Narrative* Problem Noted Date Diagnosed Date Resolved Date Cholecystitis with cholelithiasis 04/08/2013 10/26/2014 Palpitations 04/22/2006 10/26/2014 Unspecified asthma(493.90) 07/08/2005 0 11/26/2014 documented as of this encounter (statuses as of 05/23/2023) [place] [address] History of Past illness Narrative* Problem Noted Date Diagnosed Date Resolved Date Cholecystitis with cholelithiasis 04/08/2013 10/26/2014 Palpitations 04/22/2006 10/26/2014 Unspecified asthma(493.90) 07/08/2005 0 11/26/2014 documented as of this encounter (statuses as of 06/16/2023) [address]17-2013 History of Past illness Narrative* Problem Noted Date Diagnosed Date Resolved Date Cholecystitis with cholelithiasis 04/08/2013 10/26/2014 Palpitations 04/22/2006 10/26/2014 Unspecified asthma(493.90) 07/08/2005 0 11/26/2014 documented as of this encounter (statuses as of 06/26/2023) [place] [address] History of Past illness Narrative* Problem Noted Date Diagnosed Date Resolved Date Cholecystitis with cholelithiasis 04/08/2013 10/26/2014 Palpitations 04/22/2006 10/26/2014 Unspecified asthma(493.90) 07/08/2005 0 11/26/2014 documented as of this encounter (statuses as of 06/26/2023) [place] [address]2013 History of Past illness Narrative* Problem Noted Date Diagnosed Date Resolved Date Cholecystitis with cholelithiasis 04/08/2013 10/26/2014 Palpitations 04/22/2006 10/26/2014 Unspecified asthma(493.90) 07/08/2005 0 11/26/2014 documented as of this encounter (statuses as of 06/26/2023) [address]17-2013 History of Past illness Narrative* Problem Noted Date Diagnosed Date Resolved Date Cholecystitis with cholelithiasis 04/08/2013 10/26/2014 Palpitations 04/22/2006 10/26/2014 Unspecified asthma(493.90) 07/08/2005 0 11/26/2014 documented as of this encounter (statuses as of 06/26/2023) [address]17-2013 History of Past illness Narrative* Problem Noted Date Diagnosed Date Resolved Date Cholecystitis with cholelithiasis 04/08/2013 10/26/2014 Palpitations 04/22/2006 10/26/2014 Unspecified asthma(493.90) 07/08/2005 0 11/26/2014 documented as of this encounter (statuses as of 06/26/2023) [address]17-2013 History of Past illness Narrative* Problem Noted Date Diagnosed Date Resolved Date Cholecystitis with cholelithiasis 04/08/2013 10/26/2014 Palpitations 04/22/2006 10/26/2014 Unspecified asthma(493.90) 07/08/2005 0 11/26/2014 documented as of this encounter (statuses as of 06/26/2023) [address]17-2013 History of Past illness Narrative* Problem Noted Date Diagnosed Date Resolved Date Cholecystitis with cholelithiasis 04/08/2013 10/26/2014 Palpitations 04/22/2006 10/26/2014 Unspecified asthma(493.90) 07/08/2005 0 11/26/2014 documented as of this encounter (statuses as of 08/13/2023) [place] [address]2013 History of Past illness Narrative* Problem Noted Date Diagnosed Date Resolved Date Cholecystitis with cholelithiasis 04/08/2013 10/26/2014 Palpitations 04/22/2006 10/26/2014 Unspecified asthma(493.90) 07/08/2005 0 11/26/2014 documented as of this encounter (statuses as of 09/24/2023) [address]17-2013 History of Past illness Narrative* Problem Noted Date Diagnosed Date Resolved Date Cholecystitis with cholelithiasis 04/08/2013 10/26/2014 Palpitations 04/22/2006 10/26/2014 Unspecified asthma(493.90) 07/08/2005 0 11/26/2014 documented as of this encounter (statuses as of 09/27/2023) [place] [address] History of Past illness Narrative* Problem Noted Date Diagnosed Date Resolved Date Cholecystitis with cholelithiasis 04/08/2013 10/26/2014 Palpitations 04/22/2006 10/26/2014 Unspecified asthma(493.90) 07/08/2005 0 11/26/2014 documented as of this encounter (statuses as of 09/29/2023) [address]17-2013 History of Past illness Narrative* Problem Noted Date Diagnosed Date Resolved Date Cholecystitis with cholelithiasis 04/08/2013 10/26/2014 Palpitations 04/22/2006 10/26/2014 Unspecified asthma(493.90) 07/08/2005 0 11/26/2014 documented as of this encounter (statuses as of 09/29/2023) [address]17-2013 History of Past illness Narrative* Problem Noted Date Diagnosed Date Resolved Date Cholecystitis with cholelithiasis 04/08/2013 10/26/2014 Palpitations 04/22/2006 10/26/2014 Unspecified asthma(493.90) 07/08/2005 0 11/26/2014 documented as of this encounter (statuses as of 10/05/2023) [address]17-2013 History of Past illness Narrative* Problem Noted Date Diagnosed Date Resolved Date Cholecystitis with cholelithiasis 04/08/2013 10/26/2014 Palpitations 04/22/2006 10/26/2014 Unspecified asthma(493.90) 07/08/2005 0 11/26/2014 documented as of this encounter (statuses as of 10/05/2023) [address]17-2013 History of Past illness Narrative* Problem Noted Date Diagnosed Date Resolved Date Cholecystitis with cholelithiasis 04/08/2013 10/26/2014 Palpitations 04/22/2006 10/26/2014 Unspecified asthma(493.90) 07/08/2005 0 11/26/2014 documented as of this encounter (statuses as of 10/05/2023) [address]17-2013 History of Past illness Narrative* Problem Noted Date Diagnosed Date Resolved Date Cholecystitis with cholelithiasis 04/08/2013 10/26/2014 Palpitations 04/22/2006 10/26/2014 Unspecified asthma(493.90) 07/08/2005 0 11/26/2014 documented as of this encounter (statuses as of 10/11/2023) [address]17-2013 History of Past illness Narrative* Problem Noted Date Diagnosed Date Resolved Date Cholecystitis with cholelithiasis 04/08/2013 10/26/2014 Palpitations 04/22/2006 10/26/2014 Unspecified asthma(493.90) 07/08/2005 0 11/26/2014 documented as of this encounter (statuses as of 10/13/2023) [address]17-2013 History of Past illness Narrative* Problem Noted Date Diagnosed Date Resolved Date Cholecystitis with cholelithiasis 04/08/2013 10/26/2014 Palpitations 04/22/2006 10/26/2014 Unspecified asthma(493.90) 07/08/2005 0 11/26/2014 documented as of this encounter (statuses as of 10/20/2023) [address]17-2013 History of Past illness Narrative* Problem Noted Date Diagnosed Date Resolved Date Cholecystitis with cholelithiasis 04/08/2013 10/26/2014 Palpitations 04/22/2006 10/26/2014 Unspecified asthma(493.90) 07/08/2005 0 11/26/2014 documented as of this encounter (statuses as of 10/21/2023) [address]17-2013 History of Past illness Narrative* Problem Noted Date Diagnosed Date Resolved Date Cholecystitis with cholelithiasis 04/08/2013 10/26/2014 Palpitations 04/22/2006 10/26/2014 Unspecified asthma(493.90) 07/08/2005 0 11/26/2014 documented as of this encounter (statuses as of 10/21/2023) [address]17-2013 History of Past illness Narrative* Problem Noted Date Diagnosed Date Resolved Date Cholecystitis with cholelithiasis 04/08/2013 10/26/2014 Palpitations 04/22/2006 10/26/2014 Unspecified asthma(493.90) 07/08/2005 0 11/26/2014 documented as of this encounter (statuses as of 10/28/2023) [address]17-2013 History of Past illness Narrative* Problem Noted Date Diagnosed Date Resolved Date Cholecystitis with cholelithiasis 04/08/2013 10/26/2014 Palpitations 04/22/2006 10/26/2014 Unspecified asthma(493.90) 07/08/2005 0 11/26/2014 documented as of this encounter (statuses as of 11/09/2023) [address]17-2013 History of Past illness Narrative* Problem Noted Date Diagnosed Date Resolved Date Cholecystitis with cholelithiasis 04/08/2013 10/26/2014 Palpitations 04/22/2006 10/26/2014 Unspecified asthma(493.90) 07/08/2005 0 11/26/2014 documented as of this encounter (statuses as of 11/09/2023) [address]17-2013 History of Past illness Narrative* Problem Noted Date Diagnosed Date Resolved Date Cholecystitis with cholelithiasis 04/08/2013 10/26/2014 Palpitations 04/22/2006 10/26/2014 Unspecified asthma(493.90) 07/08/2005 0 11/26/2014 documented as of this encounter (statuses as of 11/25/2023) [address]17-2013 History of Past illness Narrative* Problem Noted Date Diagnosed Date Resolved Date Cholecystitis with cholelithiasis 04/08/2013 10/26/2014 Palpitations 04/22/2006 10/26/2014 Unspecified asthma(493.90) 07/08/2005 0 11/26/2014 documented as of this encounter (statuses as of 12/03/2023) [address]17-2013 History of Past illness Narrative* Problem Noted Date Diagnosed Date Resolved Date Cholecystitis with cholelithiasis 04/08/2013 10/26/2014 Palpitations 04/22/2006 10/26/2014 Unspecified asthma(493.90) 07/08/2005 0 11/26/2014 documented as of this encounter (statuses as of 12/07/2023) [facility] Chronic obstructive pulmonary disease, unspecified COPD type (HCC) [facility] Diagnosis Asthma, unspecified asthma severity, unspecified whether complicated, unspecified whether persistent [facility] Diagnosis Asthma-COPD overlap syndrome (HCC)- Primary Shortness of breath Cigarette smoker Tobacco use disorder Diaphragm dysfunction Disorders of diaphragm [facility] Diagnosis Essential hypertension- Primary Unspecified essential hypertension Chest pain, unspecified type Tobacco use Tobacco use disorder [facility] Diagnosis COPD with chronic bronchitis (HCC)- Primary Obstructive chronic bronchitis without exacerbation [facility] [facility] Diagnosis Severe anxiety with panic [facility] Diagnosis Asthma-COPD overlap syndrome (HCC)- Primary Cigarette smoker Tobacco use disorder Diaphragm dysfunction Disorders of diaphragm Lung nodule < 6cm on CT Family history of colon cancer Family history of malignant neoplasm of gastrointestinal tract [facility] this [facility] Diagnosis Severe anxiety with panic [facility] Diagnosis Severe anxiety with panic [facility] Severe anxiety with panic [facility] Diagnosis Anxiety- Primary Anxiety state, unspecified Plantar fasciitis of right foot Plantar fascial fibromatosis [facility] Diagnosis Primary insomnia Persistent disorder of initiating or maintaining sleep [facility] Diagnosis Primary insomnia Persistent disorder of initiating or maintaining sleep [facility] Diagnosis Asthma-COPD overlap syndrome (HCC)- Primary Cigarette smoker Tobacco use disorder Allergic rhinitis, unspecified seasonality, unspecified trigger Diaphragm dysfunction Disorders of diaphragm Lung nodule Solitary pulmonary nodule [facility] Diagnosis Encounter for screening mammogram for breast cancer- Primary [facility] Diagnosis COPD with chronic bronchitis (HCC) Obstructive chronic bronchitis without exacerbation [facility] Diagnosis Severe anxiety with panic- Primary Annual physical exam Routine general medical examination at a health care facility [facility] Diagnosis Annual physical exam- Primary Routine general medical examination at a health care facility Essential hypertension Unspecified essential hypertension Primary insomnia Persistent disorder of initiating or maintaining sleep Shortness of breath COPD with exacerbation (HCC) Obstructive chronic bronchitis with exacerbation Severe anxiety with panic Insomnia, unspecified type Episode of recurrent major depressive disorder, unspecified depression episode severity (HCC) documented in this encounter [facility] note* Diagnosis COPD with exacerbation (HCC)- Primary Obstructive chronic bronchitis with exacerbation Pleural effusion Unspecified pleural effusion Chest pain, unspecified type- Primary documented in this encounter [facility] note* Diagnosis Chest pain, unspecified type- Primary Encounter for screening for cardiovascular disorders Screening for other and unspecified cardiovascular conditions PORTILLO (dyspnea on exertion) Other dyspnea and respiratory abnormality Mixed hyperlipidemia Edema, unspecified type Tobacco use Tobacco use disorder Obesity (BMI 30-39.9) Obesity, unspecified documented in this encounter [facility] note* Diagnosis Asthma-COPD overlap syndrome (HCC)- Primary Pleural effusion Unspecified pleural effusion Current smoker Tobacco use disorder Diaphragm dysfunction Disorders of diaphragm documented in this encounter [facility] noteNo assessment information availableWMer[facility] Work Phone: Evaluation note* Diagnosis Abnormal mammogram- Primary Abnormal mammogram, unspecified documented in this encounter [facility] note* Diagnosis Encounter for screening for lung cancer- Primary Tobacco use current Hypoxia Hypoxemia documented in this encounter [facility] note* Diagnosis Hypoxia [facility]oxemia [facility] Diagnosis Asthma-COPD overlap syndrome (HCC)- Primary Hypoxia Hypoxemia [facility]* Diagnosis Encounter for screening for lung cancer- Primary Tobacco use current documented in this encounter [facility] note* Diagnosis Screening for ischemic heart disease- Primary documented in this encounter [facility] note* Diagnosis Essential hypertension- Primary Unspecified essential hypertension Hypopotassemia Episode of recurrent major depressive disorder, unspecified depression episode severity (HCC) Insomnia, unspecified type COPD with chronic bronchitis (HCC) Obstructive chronic bronchitis without exacerbation Primary insomnia Persistent disorder of initiating or maintaining sleep Hyperlipidemia, unspecified hyperlipidemia type Class 2 severe obesity due to excess calories with serious comorbidity and body mass index (BMI) of 35.0 to 35.9 in adult (HCC) documented in this encounter [facility] note* Diagnosis Severe anxiety with panic documented in this encounter [facility] note* Diagnosis Abnormal mammogram Abnormal mammogram, unspecified documented in this encounter [facility] note* Diagnosis Pleural effusion Unspecified pleural effusion documented in this encounter [facility] note* Diagnosis Abnormal mammogram Abnormal mammogram, unspecified documented in this encounter [facility] note* Diagnosis Encounter for screening for lung cancer Tobacco use current documented in this encounter [facility] note* Diagnosis Chest pain, unspecified type Encounter for screening for cardiovascular disorders Screening for other and unspecified cardiovascular conditions PORTILLO (dyspnea on exertion) Other dyspnea and respiratory abnormality documented in this encounter [facility] note* Diagnosis Encounter for screening mammogram for breast cancer documented in this encounter [facility] note* Diagnosis Chronic midline low back pain without sciatica- Primary Encounter for screening for osteoporosis Special screening for osteoporosis Asymptomatic postmenopausal status Class 2 severe obesity due to excess calories with serious comorbidity and body mass index (BMI) of 35.0 to 35.9 in adult ([facility]) documented in this encounter [facility] note* Diagnosis Encounter for screening for osteoporosis Special screening for osteoporosis Asymptomatic postmenopausal status Chronic midline low back pain without sciatica documented in this encounter [facility] note* Diagnosis Class 2 severe obesity due to excess calories with serious comorbidity and body mass index (BMI) of 35.0 to 35.9 in adult (HCC)- Primary documented in this encounter [facility] note* Diagnosis Severe anxiety with panic documented in this encounter [facility] note* Diagnosis Pulmonary infiltrates- Primary Other nonspecific abnormal finding of lung field History of recent pneumonia documented in this encounter [facility] note* Diagnosis Severe anxiety with panic- Primary Primary insomnia Persistent disorder of initiating or maintaining sleep Essential hypertension Unspecified essential hypertension Class 1 obesity without serious comorbidity with body mass index (BMI) of 32.0 to 32.9 in adult, unspecified obesity type Obesity, Class I, BMI 30-34.9 Obesity, unspecified documented in this encounter [facility] note* Diagnosis Asthma-COPD overlap syndrome (HCC)- Primary documented in this encounter [facility] note* Diagnosis Asthma-COPD overlap syndrome (HCC) documented in this encounter [facility] note* Diagnosis Asthma with COPD with exacerbation (HCC) (HCC)- Primary Chronic obstructive asthma with exacerbation Asthma-COPD overlap syndrome (HCC) Tobacco use current Diaphragm dysfunction Disorders of diaphragm Eosinophilia, unspecified type documented in this encounter [facility] note* Diagnosis Asthma-COPD overlap syndrome (HCC)- Primary [facility]* Diagnosis COPD with exacerbation (HCC) Obstructive chronic bronchitis with exacerbation [facility]* Diagnosis Asthma-COPD overlap syndrome (HCC) documented [facility] this [facility]* Diagnosis Asthma with COPD with exacerbation (HCC) (HCC)- Primary Chronic obstructive asthma with exacerbation Dyspnea and respiratory abnormalities Other dyspnea and respiratory abnormality Wheezing Cough, unspecified type Tobacco use current Allergic rhinitis, unspecified seasonality, unspecified trigger Eosinophilia, unspecified type Dependence on nocturnal oxygen therapy Asthma with COPD with exacerbation (HCC) (HCC) Chronic obstructive asthma with exacerbation Dyspnea and respiratory abnormalities Other dyspnea and respiratory abnormality Wheezing documented [facility] this [facility]* Diagnosis Asthma with COPD with exacerbation (HCC) (HCC) Chronic obstructive asthma with exacerbation Dyspnea and respiratory abnormalities Other dyspnea and respiratory abnormality Wheezing documented [facility] this [facility]* Diagnosis Encounter for screening mammogram for breast cancer documented in this [facility]* Diagnosis Severe anxiety with panic documented in this [facility]* Diagnosis Primary insomnia Persistent disorder of initiating or maintaining sleep documented in this [facility]* Diagnosis Cough, unspecified type documented [facility] this [facility]* Diagnosis Tobacco use disorder- Primary Nocturnal oxygen desaturation 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) Obstructive chronic bronchitis without exacerbation Primary insomnia Persistent disorder of initiating or maintaining sleep Encounter to establish care Other reasons for seeking consultation Non morbid obesity, unspecified obesity type Colon cancer screening Special screening for malignant neoplasms, colon Pulmonary infiltrates Other nonspecific abnormal finding of lung field History of recent pneumonia [facility] this [facility]* Diagnosis Tobacco use disorder- Primary Nocturnal oxygen desaturation 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) Obstructive chronic bronchitis without exacerbation Primary insomnia Persistent disorder of initiating or maintaining sleep Encounter to establish care Other reasons for seeking consultation Non morbid obesity, unspecified obesity type Colon cancer screening Special screening for malignant neoplasms, colon Chronic midline low back pain without sciatica [facility] Diagnosis Tobacco use disorder- Primary Nocturnal oxygen desaturation 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) Obstructive chronic bronchitis without exacerbation Primary insomnia Persistent disorder of initiating or maintaining sleep Encounter to establish care Other reasons for seeking consultation Non morbid obesity, unspecified obesity type Colon cancer screening Special screening for malignant neoplasms, colon Wheezing Acute cough documented in this encounter [facility] note* Diagnosis Tobacco use disorder- Primary Nocturnal oxygen desaturation 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) Obstructive chronic bronchitis without exacerbation Primary insomnia Persistent disorder of initiating or maintaining sleep Encounter to establish care Other reasons for seeking consultation Non morbid obesity, unspecified obesity type Colon cancer screening Special screening for malignant neoplasms, colon Shortness of breath COPD with exacerbation (HCC) Obstructive chronic bronchitis with exacerbation documented in this encounter [facility] note* Diagnosis Tobacco use disorder- Primary Nocturnal oxygen desaturation 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) Obstructive chronic bronchitis without exacerbation Primary insomnia Persistent disorder of initiating or maintaining sleep Encounter to establish care Other reasons for seeking consultation Non morbid obesity, unspecified obesity type Colon cancer screening Special screening for malignant neoplasms, colon Fall, initial encounter Pain and swelling of left knee documented in this encounter [facility] note* Diagnosis Subconjunctival hemorrhage of right eye- Primary Acute right eye pain documented in this encounter [facility]* Diagnosis Tobacco use disorder- Primary Nocturnal oxygen desaturation 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) Obstructive chronic bronchitis without exacerbation Primary insomnia Persistent disorder of initiating or maintaining sleep Encounter to establish care Other reasons for seeking consultation Non morbid obesity, unspecified obesity type Colon cancer screening Special screening for malignant neoplasms, colon Class 2 obesity with body mass index (BMI) of 37.0 to 37.9 in adult, unspecified obesity type, unspecified whether serious comorbidity present- Primary Anxiety Anxiety state, unspecified Episode of recurrent major depressive disorder, unspecified depression episode severity (HCC) Stress incontinence Female stress incontinence Urge incontinence documented in this encounter [facility] note* Diagnosis Tobacco use disorder- Primary Nocturnal oxygen desaturation 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) Obstructive chronic bronchitis without exacerbation Primary insomnia Persistent disorder of initiating or maintaining sleep Encounter to establish care Other reasons for seeking consultation Non morbid obesity, unspecified obesity type Colon cancer screening Special screening for malignant neoplasms, colon Abnormal urinalysis- Primary Other nonspecific finding on examination of urine Urge incontinence Stress incontinence Female stress incontinence Obesity, Class I, BMI 30-34.9 Obesity, unspecified documented in this encounter [facility] note* Diagnosis Tobacco use disorder- Primary Nocturnal oxygen desaturation 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) Obstructive chronic bronchitis without exacerbation Primary insomnia Persistent disorder of initiating or maintaining sleep Encounter to establish care Other reasons for seeking consultation Non morbid obesity, unspecified obesity type Colon cancer screening Special screening for malignant neoplasms, colon Essential hypertension Unspecified essential hypertension Impaired fasting glucose Mixed hyperlipidemia documented in this encounter [facility] note* Diagnosis Tobacco use disorder- Primary Nocturnal oxygen desaturation 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) Obstructive chronic bronchitis without exacerbation Primary insomnia Persistent disorder of initiating or maintaining sleep Encounter to establish care Other reasons for seeking consultation Non morbid obesity, unspecified obesity type Colon cancer screening Special screening for malignant neoplasms, colon Primary insomnia Persistent disorder of initiating or maintaining sleep documented in this encounter [facility] note* Diagnosis Tobacco use disorder- Primary Nocturnal oxygen desaturation 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) Obstructive chronic bronchitis without exacerbation Primary insomnia Persistent disorder of initiating or maintaining sleep Encounter to establish care Other reasons for seeking consultation Non morbid obesity, unspecified obesity type Colon cancer screening Special screening for malignant neoplasms, colon Cigarette smoker- Primary Tobacco use disorder Encounter for screening for lung cancer documented in this encounter [facility] note* Diagnosis Tobacco use disorder- Primary Nocturnal oxygen desaturation 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) Obstructive chronic bronchitis without exacerbation Primary insomnia Persistent disorder of initiating or maintaining sleep Encounter to establish care Other reasons for seeking consultation Non morbid obesity, unspecified obesity type Colon cancer screening Special screening for malignant neoplasms, colon Asthma-COPD overlap syndrome (HCC)- Primary Cigarette smoker Tobacco use disorder Class 2 obesity [facility] Diagnosis Tobacco use disorder- Primary Nocturnal oxygen desaturation 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) Obstructive chronic bronchitis without exacerbation Primary insomnia Persistent disorder of initiating or maintaining sleep Encounter to establish care Other reasons for seeking consultation Non morbid obesity, unspecified obesity type Colon cancer screening Special screening for malignant neoplasms, colon Obesity (BMI 35.0-39.9 without comorbidity)- Primary Obesity, unspecified Encounter for immunization Need for other specified prophylactic vaccination against single bacterial disease Essential hypertension Unspecified essential hypertension Tobacco use Tobacco use disorder [facility]* Diagnosis Tobacco use disorder- Primary Nocturnal oxygen desaturation 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) Obstructive chronic bronchitis without exacerbation Primary insomnia Persistent disorder of initiating or maintaining sleep Encounter to establish care Other reasons for seeking consultation Non morbid obesity, unspecified obesity type Colon cancer screening Special screening for malignant neoplasms, colon Obesity (BMI 35.0-39.9 without comorbidity) Obesity, unspecified [facility]* Diagnosis Tobacco use disorder- Primary Nocturnal oxygen desaturation 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) Obstructive chronic bronchitis without exacerbation Primary insomnia Persistent disorder of initiating or maintaining sleep Encounter to establish care Other reasons for seeking consultation Non morbid obesity, unspecified obesity type Colon cancer screening Special screening for malignant neoplasms, colon OPENED IN ERROR- Primary To allow closing an encounter opened in error (used in Smart[employer]) [facility] this [facility]* Diagnosis Tobacco use disorder- Primary Nocturnal oxygen desaturation 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) Obstructive chronic bronchitis without exacerbation Primary insomnia Persistent disorder of initiating or maintaining sleep Encounter to establish care Other reasons for seeking consultation Non morbid obesity, unspecified obesity type Colon cancer screening Special screening for malignant neoplasms, colon Obesity (BMI 35.0-39.9 without comorbidity) Obesity, unspecified [facility] this [facility]* Diagnosis Tobacco use disorder- Primary Nocturnal oxygen desaturation 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) Obstructive chronic bronchitis without exacerbation Primary insomnia Persistent disorder of initiating or maintaining sleep Encounter to establish care Other reasons for seeking consultation Non morbid obesity, unspecified obesity type Colon cancer screening Special screening for malignant neoplasms, colon Medication management- Primary Encounter for long-term (current) use of other medications Urge incontinence Stress incontinence Female stress incontinence [facility]* Diagnosis Tobacco use disorder- Primary Nocturnal oxygen desaturation 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) Obstructive chronic bronchitis without exacerbation Primary insomnia Persistent disorder of initiating or maintaining sleep Encounter to establish care Other reasons for seeking consultation Non morbid obesity, unspecified obesity type Colon cancer screening Special screening for malignant neoplasms, colon Lung nodules- Primary Other nonspecific abnormal finding of lung field Encounter for screening for lung cancer Tobacco use current Pneumonia of both lungs due to infectious organism, unspecified part of lung COPD with exacerbation (HCC) Obstructive chronic bronchitis with exacerbation [facility]* Diagnosis Tobacco use disorder- Primary Nocturnal oxygen desaturation 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) Obstructive chronic bronchitis without exacerbation Primary insomnia Persistent disorder of initiating or maintaining sleep Encounter to establish care Other reasons for seeking consultation Non morbid obesity, unspecified obesity type Colon cancer screening Special screening for malignant neoplasms, colon Cigarette smoker Tobacco use disorder Encounter for screening for lung cancer [facility] Diagnosis Tobacco use disorder- Primary Nocturnal oxygen desaturation 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 Finish the course. Use pain medicine, nausea medicine as neededWMer[facility] Work Phone: Hospital Discharge instructions Additional Instructions I have been informed by Dr. Styles that I am seriously ill and need to be admitted to the hospital. I have declined treatment, x-ray, and wish to go home. I have been informed this may result in more invasive treatment and prolonged treatment by leaving AGAINST MEDICAL ADVICE. I have been informed this may result in me requiring respiratory support, inability to perform 1 or more activities of daily living, which was explained to me, need an feeding tube, seizure disorder, fall resulting in injury to my brain or bones, semivegetative the vegetative state or . I understand these risks and I am willing to take this risk.[facility] Work Phone: Reason for referral (narrative)* Outpatient Procedure (Routine) - Pending Review Specialty Diagnoses / Procedures Referred By Harvey t Referred To Contact [facility] Diagnoses Chest pain, unspecified type Procedures STRESS ECHO TREADMILL ECHO TTHRC R-T 2D W/WO M-MODE COMPLETE REST&ST Felicity Forrest, ROOF TRUSS DETAILER.PLANOGRAPH OPERATOR [address] [place] [address] [facility] [place] [address] [place] [address] Referral ID Status Reason Start Date Expiration Date Visits Requested Visits Authorized [id number] Pending Review Auto-Generat ed Referral 12/01/2021 12/01/2022 1 1 [facility] for referral (narrative)* Outpatient Procedure (Routine) - Pending Review Specialty Diagnoses / Procedures Referred By Contac t Referred To Contact [facility] Diagnoses Asthma-COPD overlap syndrome (HCC) Procedures SPIROMETRY BASELINE ONLY SPMTRY W/VC EXPIRATORY CHANTELL W/WO MXML VOL VNTJ Florina Arenas PA-C [address] [place] [address] [facility] [place] [address] [place] [address] Referral ID Status Reason Start Date Expiration Date Visits Requested Visits Authorized [id number] Pending Review Auto-Generat ed Referral 2 08/19/2023 1 1 [facility] for referral (narrative)* Diagnostic Procedure Only (Routine) - Authorized Specialty Diagnoses / Procedures Referred By Harvey t Referred To Contact BR IM[facility] Diagnoses Encounter for screening mammogram for breast cancer Procedures ZACKERY SCREENING SCREENING MAMMOGRAPHY BI 2-[place] [address] [place] [address] [facility] [address] [place] [phone] Referral ID Status Reason Start Date Expiration Date Visits Requested Visits Authorized [id number] Authorized Auto-Generat ed Referral 09/14/2022 10/14/2023 1 1 [facility] for referral (narrative)* Outpatient Procedure (Routine) - Authorized Specialty Diagnoses / Procedures Referred By Contac t Referred To [facility] Diagnoses Chest pain, unspecified type Encounter for screening for cardiovascular disorders PORTILLO (dyspnea on exertion) Procedures ECHO ECHO TTHRC R-T 2D W/WOM-MODE COMPL SPEC&COLR D Felicity Forrest APRN.CNP [address] [place] [place] [address] [facility] [place] [address] [place] [address] Referral ID Status Reason Start Date Expiration Date Visits Requested Visits Authorized [id number] Authorized Auto-Generat ed Referral 11/30/2022 11/30/2023 1 1 * Diagnostic Procedure Only (Routine) - Authorized Specialty Diagnoses / Procedures Referred By Harvey armas Referred To Contact [facility]ULAR [facility] FUN[facility] Diagnoses Chest pain, unspecified type Encounter for screening for cardiovascular disorders PORTILLO (dyspnea on exertion) Procedures NM CARDIAC PERF STRESS/PHARM MYOCARDIAL SPECT MULTIPLE STUDIES Felicity Forrest APRN.CNP [address] [place] [address] [place] [address] [facility] [address] [place] [address] Referral ID Status Reason Start Date Expiration Date Visits Requested Visits Authorized [id number] Authorized Auto-Generat ed Referral 11/30/2022 12/30/2023 1 1 * Outpatient Procedure (Routine) - Closed Specialty Diagnoses / Procedures Referred By Harvey armas Referred To Contact [facility] Diagnoses Chest pain, unspecified type Procedures ECG COMPLETE ECG ROUTINE ECG W/LEAST 12 LDS W/I&R Felicity Forrest APRN.CNP [address] [place] [address] [place] [address] [facility] [place] [address] [place] [address] Referral ID Status Reason Start Date Expiration Date V isits Requested Visits Authorized [id number] Closed Auto-Generate d Referral 11/24/2022 11/24/2023 1 1 [facility] for referral (narrative)* Diagnostic Procedure Only (Routine) - Pending Review Specialty Diagnoses / Procedures Referred By Contac t Referred To Contact [facility] Diagnoses Abnormal mammogram Procedures US BREAST LTD LEFT US BREAST UNI REAL TIME WITH IMAGE LIMITED Cheyanne Cortez APRN.PLANOGRAPH OPERATOR [address] [place] [address] [facility] [address] [place] [address] Referral ID Status Reason Start Date Expiration Date Visits Requested Visits Authorized [id number] Pending Review Auto-Generat ed Referral 12/21/2022 01/20/2024 1 1 * Diagnostic Procedure Only (Routine) - Pending Review Specialty Diagnoses / Procedures Referred By Contac t Referred To Contact [facility] Diagnoses Abnormal mammogram Procedures ZACKERY DIAGNOSTIC LEFT DIAGNOSTIC MAMMOGRAPHY COMPUTER-AIDED DETCJ UNI Cheyanne Cortez APRN.PLANOGRAPH OPERATOR [address] [place] [address] Br Imaging [address] [place] [address] Referral ID Status Reason Start Date Expiration Date Visits Requested Visits Authorized [id number] Pending Review Auto-Generat ed Referral 12/21/2022 01/20/2024 1 1 [facility] for referral (narrative)* Outpatient Procedure (Routine) - Authorized Specialty Diagnoses / Procedures Referred By Contac t Referred To Contact [facility] Diagnoses Hypoxia Procedures OXIMETRY WITH AMBULATION NONINVASIVE EAR/PULSE OXIMETRY Aaron Atkins APRN.PLANOGRAPH OPERATOR [address] [place] [address] [facility] [place] [address] [place] [address] Referral ID Status Reason Start Date Expiration Date Visits Requested Visits Authorized [id number] Authorized Auto-Generat ed Referral 12/22/2022 01/21/2024 1 1 * MRI/CT (Routine) - Authorized Specialty Diagnoses / Procedures Referred By Contac t Referred To Contact CT IMAGING Diagnoses Encounter for screening for lung cancer Tobacco use current Procedures CT LUNG SCREEN WO IVCON COMPUTED TOMOGRAPHY THORAX LW DOSE LNG CA Aaron Barrera APRN.PLANOGRAPH OPERATOR [address] [place] [address] Ct Imaging Referral ID Status Reason Start Date Expiration Date Visits Requested Visits Authorized [id number] Authorized Auto-Generat ed Referral 12/22/2022 01/21/2024 1 1 [facility] for referral (narrative)* Diagnostic Procedure Only (Routine) - Closed Specialty Diagnoses / Procedures [facility] To [facility] Diagnoses Abnormal mammogram Procedures US BREAST LTD LEFT US BREAST UNI REAL TIME WITH IMAGE LIMITED Cheyanne Cortez APRN.PLANOGRAPH OPERATOR [address] [place] [address] [facility] [address] [place] [address] Referral ID Status Reason Start Date Expiration Date V isits Requested Visits Authorized [id number] Closed Auto-Generate d Referral 12/21/2022 01/20/2024 1 1 [facility] for referral (narrative)* Diagnostic Procedure Only (Routine) - Closed Specialty Diagnoses / Procedures Referred By Contac t Referred To Contact [facility]ULAR [facility]AL [facility]AGING Diagnoses Chest pain, unspecified type Encounter for screening for cardiovascular disorders PORTILLO (dyspnea on exertion) Procedures NM CARDIAC PERF STRESS/PHARM MYOCARDIAL SPECT MULTIPLE STUDIES Felicity Forrest ROOF TRUSS DETAILER.PLANOGRAPH OPERATOR [address] [facility] [address] [place] [address] Molecular [facility] Functional [facility] [address] [place] [address] Referral ID Status Reason Start Date Expiration Date V isits Requested Visits Authorized [id number] Closed Auto-Generate d Referral 11/30/2022 12/30/2023 1 1 T [facility] for referral (narrative)* Diagnostic Procedure Only (Routine) - Closed Specialty Diagnoses / Procedures Referred By Harvey armas Referred To Contact [facility] Diagnoses Encounter for screening mammogram for breast cancer Procedures ZACKERY SCREENING SCREENING MAMMOGRAPHY BI 2-VIEW BREAST INC Mariluz Anderson MD [address] [place] [address] Br Imaging [address] [place] [phone] Referral ID Status Reason Start Date Expiration Date V isits Requested Visits Authorized [id number] Closed Auto-Generate d Referral 09/14/2022 10/14/2023 1 1 T [facility] for referral (narrative)* Outpatient Procedure (Routine) - Authorized Specialty Diagnoses / Procedures [facility] Diagnoses Asthma-COPD overlap syndrome (HCC) Procedures OXIMETRY WITH AMBULATION NONINVASIVE EAR/PULSE OXIMETRY MULTIPLE Florina Brown PA-C [address] [place] [address] [facility] [place] [address] [place] [address] Referral ID Status Reason Start Date Expiration Date Visits Requested Visits Authorized [id number] Authorized Auto-Generat ed Referral 10/21/2023 11/19/2024 1 1 [facility] for referral (narrative)* Outpatient Procedure (Routine) - Authorized Specialty Diagnoses / Procedures [facility] Diagnoses Asthma-COPD overlap syndrome (HCC) Procedures SPIROMETRY WITH DILATOR IF OBSTRUCTED BRNCDILAT RSPSE SPMTRY PRE&POST-BRNCDILAT ADMFlorina Alonso PA-C [address] [place] [address] [facility] [place] [address] [place] [address] Referral ID Status Reason Start Date Expiration Date Visits Requested Visits Authorized [id number] Authorized Auto-Generat ed Referral 11/09/2023 12/08/2024 1 1 T [facility] for referral (narrative)* Diagnostic Procedure Only (Routine) - Authorized Specialty Diagnoses / Procedures Referred By Contac t Referred To Contact [facility] Diagnoses Encounter for screening mammogram for breast cancer Procedures ZACKERY SCREENING SCREENING MAMMOGRAPHY BI 2-VIEW BREAST INC CAD Mariluz High MD [address] [place] [address] Br Imaging [address] [place] [address] Referral ID Status Reason Start Date Expiration Date Visits Requested Visits Authorized [id number] Authorized Auto-Generat ed Referral 01/19/2024 02/17/2025 1 1 [facility] for referral (narrative)* Diagnostic Procedure Only (Routine) - Closed Specialty Diagnoses / Procedures Referred By Contac t Referred To Contact XR IMAGING Diagnoses Chronic midline low back pain without sciatica Procedures XR LUMBAR GENERAL 3V AP/LAT/L5-S1 RADEX SPINE LUMBOSACRAL 2/3 VIEWS Javier Truong APRN.SLURRY TANK TENDER [address] [place] [address] [place] [address] Referral ID Status Reason Start Date Expiration Date V isits Requested Visits Authorized [id number] Closed Auto-Generate d Referral 09/17/2023 10/16/2024 1 1 [facility] for referral (narrative)* Diagnostic Procedure Only (Routine) - Closed Specialty Diagnoses / Procedures Referred By Contac t Referred To Contact XR IMAGING Diagnoses Fall, initial encounter Pain and swelling of left knee Procedures XR KNEE GENERAL 4V AP BOTH/PA BOTH/LAT/MERC LT KNEE AP-WGT/LAT/MERCHANT Reji Carr, ROOF TRUSS DETAILER.PLANOGRAPH OPERATOR [address] [place] [address] [facility] [address] Referral ID Status Reason Start Date Expiration Date V isits Requested Visits Authorized [id number] Closed Auto-Generate d Referral 03/25/2021 04/24/2022 1 1 [facility] for referral (narrative)No reason for referral information availableWMer[facility] Work Phone: Reason for visit Narrative* Diagnostic Procedure Only (Routine) - Closed Specialty Diagnoses / Procedures Referred By Contac t Referred To Contact [facility]LECULAR [facility] FUNCTIONAL IMAGING Diagnoses Chest pain, unspecified type Encounter for screening for cardiovascular disorders PORTILLO (dyspnea on exertion) Procedures NM CARDIAC PERF STRESS/PHARM MYOCARDIAL SPECT MULTIPLE STUDIES Felicity Forrest APRN.PLANOGRAPH OPERATOR [address] [place] [address] Molecular [facility] Functional Imaging [address] [place] [id number] Referral ID Status Reason Start Date Expiration Date V isits Requested Visits Authorized [id number] Closed Auto-Generate d Referral 11/30/2022 12/30/2023 1 1 [facility] for visit Narrative* Diagnostic Procedure Only (Routine) - Closed Specialty Diagnoses / Procedures Referred By Contac t Referred To Contact BR IM[facility] Diagnoses Abnormal mammogram Procedures ZACKERY DIAGNOSTIC LEFT DIAGNOSTIC MAMMOGRAPHY COMPUTER-AIDED DETCJ Cheyanne Arriaga APRN.CNP [address] [place] [address] [facility] [address] [place] [address] Referral ID Status Reason Start Date Expiration Date V isits Requested Visits Authorized [id number] Closed Auto-Generate d Referral 12/21/2022 01/20/2024 1 1 [facility] for visit Narrative* Diagnostic Procedure Only (Routine) - Closed Specialty Diagnoses / Procedures Referred By Contac t Referred To Contact BR IMAG[facility] Diagnoses Encounter for screening mammogram for breast cancer Procedures ZACKERY SCREENING SCREENING MAMMOGRAPHY BI 2-VIEW BREAST INC Mariluz Anderson MD [address] [place] [address] [facility] Imaging [address] [place] [address] Referral ID Status Reason Start Date Expiration Date V isits Requested Visits Authorized [id number] Closed Auto-Generate d Referral 09/14/2022 10/14/2023 1 1 [facility] for visit Narrative* Diagnostic Procedure Only (Routine) - Closed Specialty Diagnoses / Procedures Referred By Contac t Referred To Contact XR IMAGING Diagnoses Chronic midline low back pain without sciatica Procedures XR LUMBAR GENERAL 3V AP/LAT/L5-S1 RADEX SPINE LUMBOSACRAL 2/3 VIEWS Javier Truong, ROOF TRUSS DETAILER.SLURRY TANK TENDER [address] [place] [address] [place] [address] Referral ID Status Reason Start Date Expiration Date V isits Requested Visits Authorized [id number] Closed Auto-Generate d Referral 09/17/2023 10/16/2024 1 1 [facility] for visit Narrative* Diagnostic Procedure Only (Routine) - Closed Specialty Diagnoses / Procedures Referred By Contac t Referred To Contact XR IMAGING Diagnoses Fall, initial encounter Pain and swelling of left knee Procedures XR KNEE GENERAL 4V AP BOTH/PA BOTH/LAT/MERC LT KNEE AP-WGT/LAT/MERCHANT Reji Carr, ROOF TRUSS DETAILER.PLANOGRAPH OPERATOR [address] [place] [address] [place] [address] Referral ID Status Reason Start Date Expiration Date V isits Requested Visits Authorized [id number] Closed Auto-Generate d Referral 03/25/2021 04/24/2022 1 1 [facility] for visit Narrative* Diagnostic Procedure Only (Routine) - Closed Specialty Diagnoses / Procedures Referred By Contac t Referred To Contact BR IM[facility] Diagnoses Encounter for screening mammogram for breast cancer Procedures ZACKERY SCREENING SCREENING MAMMOGRAPHY BI 2-VIEW BREAST INC Mariluz Anderson MD [address] [place] [address] Phone: tel: fax: [facility] [address] [place] [address] Referral ID Status Reason Start Date Expiration Date V isits Requested Visits Authorized [id number] Closed Auto-Generate d Referral 01/19/2024 02/17/2025 1 1 [facility] Summary Purpose Family History No Family History Records FoundNo Family History Records FoundNo Family History Records FoundNo Family History Records FoundNo Family History Records Found Advance Directives Advance Directive Response Recorded Date/ Time Living Will No December 20, 2022 1:10pm Power of Inspector [employer] No December 20 1:10pm Advance Directive Response Recorded Date/ Time Do you have a Healthcare Power of Inspector [employer]? No February 06, 2025 9:01pm Reason for Referral Specialty Diagnoses / Procedures Referred By Giovanniac t Referred To Contact CT IMAGING Diagnoses Shortness of breath Procedures CT CHEST WO IVCON DIAGNOSTIC COMPUTED TOMOGRAPHY THORAX W/O CNTRST Penny Garner MD [address] [place] [address] Ct Imaging Referral ID Status Reason Start Date Expiration Date Visits Requested Visits Authorized [id number] Authorized Auto-Generat ed Referral 11/25/2021 12/25/2022 1 1 Specialty Diagnoses / Procedures Referred By Conttiffany t Referred To Contact [facility] Diagnoses Asthma, unspecified asthma severity, unspecified whether complicated, unspecified whether persistent Procedures NITRIC OXIDE, EXHALED NITRIC OXIDE GAS DETERMINATION Penny Garner MD [address] [place] [address] [facility] [place] [address] [place] [address] Referral ID Status Reason Start Date Expiration Date V isits Requested Visits Authorized [id number] Closed Auto-Generate d Referral 11/25/2021 08/22/2022 1 1 Specialty Diagnoses / Procedures Referred By Contac t Referred To Contact Pulmonary and Critical Care Medicine Diagnoses COPD with chronic bronchitis (HCC) Procedures CONSULT TO PULM/CRITICAL CARE OFFICE/OUTPATIENT [facility] MDM 60-74 MINUTES aKdi Rizzo, ROOF TRUSS DETAILER.PLANOGRAPH OPERATOR [address] [place] [address] Referral ID Status Reason Start Date Expiration Date Visits Requested Visits Authorized [id number] Pending Review PCP Requested Referral 12/04/2021 12/04/2022 1 1 Specialty Diagnoses / Procedures Referred By Giovanniac t Referred To Contact CT IMAGING Diagnoses Encounter for screening for lung cancer Tobacco use current Procedures CT LUNG SCREEN WO IVCON COMPUTED TOMOGRAPHY THORAX LW DOSE LNG CA SCR Katherine- Aaron Moura, ROOF TRUSS DETAILER.PLANOGRAPH OPERATOR [address] [place] [address] Ct Imaging Referral ID Status Reason Start Date Expiration Date Visits Requested Visits Authorized [id number] Pending Review Auto-Generat ed Referral 12/30/2023 01/28/2024 1 1 Specialty Diagnoses / Procedures Referred By Contac t Referred To Contact Diagnoses Class 2 severe obesity due to excess calories with serious comorbidity and body mass index (BMI) of 35.0 to 35.9 in adult (HCC) Procedures CONSULT [facility] OFFICE/OUTPATIENT NEW HIGH MDM 60-74 MINUTES Javier Truong, ROOF TRUSS DETAILER.SLURRY TANK TENDER [address] [place] [address] Referral ID Status Reason Start Date Expiration Date Visits Requested Visits Authorized [id number] Pending Review PCP Requested Referral 03/02/2023 03/01/2024 1 1 Specialty Diagnoses / Procedures Referred By Contac t Referred To Contact CT IMAGING Diagnoses Encounter for screening for lung cancer Tobacco use current Procedures CT LUNG SCREEN WO IVCON COMPUTED TOMOGRAPHY THORAX LW DOSE LNG CA Aaron Barrera, ROOF TRUSS DETAILER.PLANOGRAPH OPERATOR [address] [place] [address] Ct Imaging [facility] Referral ID Status Reason Start Date Expiration Date V isits Requested Visits Authorized [id number] Closed Auto-Generate d Referral 12/22/2022 01/21/2024 1 1 Specialty Diagnoses / Procedures Referred By Contac t Referred To Contact [facility] Diagnoses Chronic midline low back pain without sciatica Procedures CONSULT TO PHYSICAL THERAPY PHYSICAL THERAPY EVALUATION HIGH COMPLEX 45 MINS Javier Truong, ROOF TRUSS DETAILER.SLURRY TANK TENDER [address] [place] [address] [facility] [place] [address] [place] [address] Referral ID Status Reason Start Date Expiration Date Visits Requested Visits Authorized [id number] Pending Review Auto-Generat ed Referral 09/24/2023 09/23/2024 1 1 Specialty Diagnoses / Procedures Referred By Contac t Referred To Contact Diagnoses Class 2 severe obesity due to excess calories with serious comorbidity and body mass index (BMI) of 35.0 to 35.9 in adult ([facility]) Javier Truong, ROOF TRUSS DETAILER.SLURRY TANK TENDER [address] [place] [address] Referral ID Status Reason Start Date Expiration Date Visits Re quested Visits Authorized [id number] Denied 1 1 Specialty Diagnoses / Procedures Referred By Contac t Referred To Contact Diagnoses Class 2 obesity with body mass index (BMI) of 37.0 to 37.9 in adult, unspecified obesity type, unspecified whether serious comorbidity present Sg Clemons PA-C [address] [place] [address] Referral ID Status Reason Start Date Expiration Date Visits Re quested Visits Authorized [id number] Denied 07/11/2024 09/09/2024 1 1 Specialty Diagnoses / Procedures Referred By Contac t Referred To Contact Diagnoses Urge incontinence Stress incontinence Sg Clemnos PA-C [address] [place] [address] Referral ID Status Reason Start Date Expiration Date Visits Re quested Visits Authorized [id number] Closed 1 1 Specialty Diagnoses / Procedures Referred By Contac t Referred To Contact CT IMAGING Diagnoses Cigarette smoker Encounter for screening for lung cancer Procedures CT LUNG SCREEN WO IVCON COMPUTED TOMOGRAPHY THORAX LW DOSE LNG CA SCR Katherine- Aaron Moura, ROOF TRUSS DETAILER.PLANOGRAPH OPERATOR [address] [place] [address] Ct Imaging [facility] Referral ID Status Reason Start Date Expiration Date Visits Requested Visits Authorized [id number] New Request Auto-Generat ed Referral 4 09/07/2025 1 1 Specialty Diagnoses / Procedures Referred By Contac t Referred To Contact Diagnoses Asthma-COPD overlap syndrome (HCC) Penny Garner MD [address] [place] [address] Referral ID Status Reason Start Date Expiration Date V isits Requested Visits Authorized [id number] Pending Review 1 1 Specialty Diagnoses / Procedures Referred By Harvey t Referred To Contact Diagnoses Obesity (BMI 35.0-39.9 without comorbidity) Mariluz High MD [address] [place] [address] Referral ID Status Reason Start Date Expiration Date Visits Re quested Visits Authorized [id number] Closed 1 1 Chief Complaint and Reason for Visit Chief Complaint LOWER ABD PAIN Chief Complaint Admit Date SOB February 06, 2025 7:25 pm Additional Source Comments INFORMATION SOURCE (unrecogn ized section and content) DATE CREATED AUTHOR 02/11/2018 [facility] [place] ([place]) DATE CREATED AUTHOR AUTHOR'S ORGANIZ ATION 12/25/2022 [facility] DATE CREATED AUTHOR AUTHOR'S ORGANIZ ATION 05/25/2023 [facility] DATE CREATED AUTHOR AUTHOR'S ORGANIZ ATION 06/18/2024 [facility] DATE CREATED AUTHOR AUTHOR'S ORGANIZ ATION 11/25/2024 [facility] Source Comments (unrecognize d section and content) In the event this informatio n is protected by the Federal Confidentiality of Alcohol and Drug Abuse Patient Records regulations: The Federal rules restrict any use of the information to criminally investigate or prosecute any alcohol or drug abuse patient.[facility] the event this information is protected by the Federal Confidentiality of Alcohol and Drug Abuse Patient Records regulations: The Federal rules restrict any use of the information to criminally investigate or prosecute any alcohol or drug abuse patient.[facility] the event this information is protected by the Federal Confidentiality of Alcohol and Drug Abuse Patient Records regulations: The Federal rules restrict any use of the information to criminally investigate or prosecute any alcohol or drug abuse patient.[facility] the event this information is protected by the Federal Confidentiality of Alcohol and Drug Abuse Patient Records regulations: The Federal rules restrict any use of the information to criminally investigate or prosecute any alcohol or drug abuse patient.[facility] the event this information is protected by the Federal Confidentiality of Alcohol and Drug Abuse Patient Records regulations: The Federal rules restrict any use of the information to criminally investigate or prosecute any alcohol or drug abuse patient.[facility] the event this information is protected by the Federal Confidentiality of Alcohol and Drug Abuse Patient Records regulations: The Federal rules restrict any use of the information to criminally investigate or prosecute any alcohol or drug abuse patient.[facility] the event this information is protected by the Federal Confidentiality of Alcohol and Drug Abuse Patient Records regulations: The Federal rules restrict any use of the information to criminally investigate or prosecute any alcohol or drug abuse patient.[facility]In the event this information is protected by the Federal Confidentiality of Alcohol and Drug Abuse Patient Records regulations: The Federal rules restrict any use of the information to criminally investigate or prosecute any alcohol or drug abuse patient.[facility]In the event this information is protected by the Federal Confidentiality of Alcohol and Drug Abuse Patient Records regulations: The Federal rules restrict any use of the information to criminally investigate or prosecute any alcohol or drug abuse patient.[facility]In the event this information is protected by the Federal Confidentiality of Alcohol and Drug Abuse Patient Records regulations: The Federal rules restrict any use of the information to criminally investigate or prosecute any alcohol or drug abuse patient.[facility]In the event this information is protected by the Federal Confidentiality of Alcohol and Drug Abuse Patient Records regulations: The Federal rules restrict any use of the information to criminally investigate or prosecute any alcohol or drug abuse patient.[facility]In the event this information is protected by the Federal Confidentiality of Alcohol and Drug Abuse Patient Records regulations: The Federal rules restrict any use of the information to criminally investigate or prosecute any alcohol or drug abuse patient.[facility]In the event this information is protected by the Federal Confidentiality of Alcohol and Drug Abuse Patient Records regulations: The Federal rules restrict any use of the information to criminally investigate or prosecute any alcohol or drug abuse patient.[facility]In the event this information is protected by the Federal Confidentiality of Alcohol and Drug Abuse Patient Records regulations: The Federal rules restrict any use of the information to criminally investigate or prosecute any alcohol or drug abuse patient.[facility]In the event this information is protected by the Federal Confidentiality of Alcohol and Drug Abuse Patient Records regulations: The Federal rules restrict any use of the information to criminally investigate or prosecute any alcohol or drug abuse patient.[facility]In the event this information is protected by the Federal Confidentiality of Alcohol and Drug Abuse Patient Records regulations: The Federal rules restrict any use of the information to criminally investigate or prosecute any alcohol or drug abuse patient.[facility]In the event this information is protected by the Federal Confidentiality of Alcohol and Drug Abuse Patient Records regulations: The Federal rules restrict any use of the information to criminally investigate or prosecute any alcohol or drug abuse patient.[facility]In the event this information is protected by the Federal Confidentiality of Alcohol and Drug Abuse Patient Records regulations: The Federal rules restrict any use of the information to criminally investigate or prosecute any alcohol or drug abuse patient.[facility]In the event this information is protected by the Federal Confidentiality of Alcohol and Drug Abuse Patient Records regulations: The Federal rules restrict any use of the information to criminally investigate or prosecute any alcohol or drug abuse patient.[facility]In the event this information is protected by the Federal Confidentiality of Alcohol and Drug Abuse Patient Records regulations: The Federal rules restrict any use of the information to criminally investigate or prosecute any alcohol or drug abuse patient.[facility]In the event this information is protected by the Federal Confidentiality of Alcohol and Drug Abuse Patient Records regulations: The Federal rules restrict any use of the information to criminally investigate or prosecute any alcohol or drug abuse patient.[facility]In the event this information is protected by the Federal Confidentiality of Alcohol and Drug Abuse Patient Records regulations: The Federal rules restrict any use of the information to criminally investigate or prosecute any alcohol or drug abuse patient.[facility]In the event this information is protected by the Federal Confidentiality of Alcohol and Drug Abuse Patient Records regulations: The Federal rules restrict any use of the information to criminally investigate or prosecute any alcohol or drug abuse patient.[facility]In the event this information is protected by the Federal Confidentiality of Alcohol and Drug Abuse Patient Records regulations: The Federal rules restrict any use of the information to criminally investigate or prosecute any alcohol or drug abuse patient.[facility]In the event this information is protected by the Federal Confidentiality of Alcohol and Drug Abuse Patient Records regulations: The Federal rules restrict any use of the information to criminally investigate or prosecute any alcohol or drug abuse patient.[facility]In the event this information is protected by the Federal Confidentiality of Alcohol and Drug Abuse Patient Records regulations: The Federal rules restrict any use of the information to criminally investigate or prosecute any alcohol or drug abuse patient.[facility]In the event this information is protected by the Federal Confidentiality of Alcohol and Drug Abuse Patient Records regulations: The Federal rules restrict any use of the information to criminally investigate or prosecute any alcohol or drug abuse patient.[facility]In the event this information is protected by the Federal Confidentiality of Alcohol and Drug Abuse Patient Records regulations: The Federal rules restrict any use of the information to criminally investigate or prosecute any alcohol or drug abuse patient.[facility]In the event this information is protected by the Federal Confidentiality of Alcohol and Drug Abuse Patient Records regulations: The Federal rules restrict any use of the information to criminally investigate or prosecute any alcohol or drug abuse patient.[facility]In the event this information is protected by the Federal Confidentiality of Alcohol and Drug Abuse Patient Records regulations: The Federal rules restrict any use of the information to criminally investigate or prosecute any alcohol or drug abuse patient.[facility]In the event this information is protected by the Federal Confidentiality of Alcohol and Drug Abuse Patient Records regulations: The Federal rules restrict any use of the information to criminally investigate or prosecute any alcohol or drug abuse patient.[facility]In the event this information is protected by the Federal Confidentiality of Alcohol and Drug Abuse Patient Records regulations: The Federal rules restrict any use of the information to criminally investigate or prosecute any alcohol or drug abuse patient.[facility]In the event this information is protected by the Federal Confidentiality of Alcohol and Drug Abuse Patient Records regulations: The Federal rules restrict any use of the information to criminally investigate or prosecute any alcohol or drug abuse patient.[facility]In the event this information is protected by the Federal Confidentiality of Alcohol and Drug Abuse Patient Records regulations: The Federal rules restrict any use of the information to criminally investigate or prosecute any alcohol or drug abuse patient.[facility]In the event this information is protected by the Federal Confidentiality of Alcohol and Drug Abuse Patient Records regulations: The Federal rules restrict any use of the information to criminally investigate or prosecute any alcohol or drug abuse patient.[facility]In the event this information is protected by the Federal Confidentiality of Alcohol and Drug Abuse Patient Records regulations: The Federal rules restrict any use of the information to criminally investigate or prosecute any alcohol or drug abuse patient.[facility]In the event this information is protected by the Federal Confidentiality of Alcohol and Drug Abuse Patient Records regulations: The Federal rules restrict any use of the information to criminally investigate or prosecute any alcohol or drug abuse patient.[facility]In the event this information is protected by the Federal Confidentiality of Alcohol and Drug Abuse Patient Records regulations: The Federal rules restrict any use of the information to criminally investigate or prosecute any alcohol or drug abuse patient.[facility]In the event this information is protected by the Federal Confidentiality of Alcohol and Drug Abuse Patient Records regulations: The Federal rules restrict any use of the information to criminally investigate or prosecute any alcohol or drug abuse patient.[facility]In the event this information is protected by the Federal Confidentiality of Alcohol and Drug Abuse Patient Records regulations: The Federal rules restrict any use of the information to criminally investigate or prosecute any alcohol or drug abuse patient.[facility]In the event this information is protected by the Federal Confidentiality of Alcohol and Drug Abuse Patient Records regulations: The Federal rules restrict any use of the information to criminally investigate or prosecute any alcohol or drug abuse patient.[facility]In the event this information is protected by the Federal Confidentiality of Alcohol and Drug Abuse Patient Records regulations: The Federal rules restrict any use of the information to criminally investigate or prosecute any alcohol or drug abuse patient.[facility]In the event this information is protected by the Federal Confidentiality of Alcohol and Drug Abuse Patient Records regulations: The Federal rules restrict any use of the information to criminally investigate or prosecute any alcohol or drug abuse patient.[facility]In the event this information is protected by the Federal Confidentiality of Alcohol and Drug Abuse Patient Records regulations: The Federal rules restrict any use of the information to criminally investigate or prosecute any alcohol or drug abuse patient.[facility]In the event this information is protected by the Federal Confidentiality of Alcohol and Drug Abuse Patient Records regulations: The Federal rules restrict any use of the information to criminally investigate or prosecute any alcohol or drug abuse patient.[facility]In the event this information is protected by the Federal Confidentiality of Alcohol and Drug Abuse Patient Records regulations: The Federal rules restrict any use of the information to criminally investigate or prosecute any alcohol or drug abuse patient.[facility]In the event this information is protected by the Federal Confidentiality of Alcohol and Drug Abuse Patient Records regulations: The Federal rules restrict any use of the information to criminally investigate or prosecute any alcohol or drug abuse patient.[facility]In the event this information is protected by the Federal Confidentiality of Alcohol and Drug Abuse Patient Records regulations: The Federal rules restrict any use of the information to criminally investigate or prosecute any alcohol or drug abuse patient.[facility]In the event this information is protected by the Federal Confidentiality of Alcohol and Drug Abuse Patient Records regulations: The Federal rules restrict any use of the information to criminally investigate or prosecute any alcohol or drug abuse patient.[facility]In the event this information is protected by the Federal Confidentiality of Alcohol and Drug Abuse Patient Records regulations: The Federal rules restrict any use of the information to criminally investigate or prosecute any alcohol or drug abuse patient.[facility]In the event this information is protected by the Federal Confidentiality of Alcohol and Drug Abuse Patient Records regulations: The Federal rules restrict any use of the information to criminally investigate or prosecute any alcohol or drug abuse patient.[facility]In the event this information is protected by the Federal Confidentiality of Alcohol and Drug Abuse Patient Records regulations: The Federal rules restrict any use of the information to criminally investigate or prosecute any alcohol or drug abuse patient.[facility]In the event this information is protected by the Federal Confidentiality of Alcohol and Drug Abuse Patient Records regulations: The Federal rules restrict any use of the information to criminally investigate or prosecute any alcohol or drug abuse patient.[facility]In the event this information is protected by the Federal Confidentiality of Alcohol and Drug Abuse Patient Records regulations: The Federal rules restrict any use of the information to criminally investigate or prosecute any alcohol or drug abuse patient.[facility]In the event this information is protected by the Federal Confidentiality of Alcohol and Drug Abuse Patient Records regulations: The Federal rules restrict any use of the information to criminally investigate or prosecute any alcohol or drug abuse patient.[facility]In the event this information is protected by the Federal Confidentiality of Alcohol and Drug Abuse Patient Records regulations: The Federal rules restrict any use of the information to criminally investigate or prosecute any alcohol or drug abuse patient.[facility]In the event this information is protected by the Federal Confidentiality of Alcohol and Drug Abuse Patient Records regulations: The Federal rules restrict any use of the information to criminally investigate or prosecute any alcohol or drug abuse patient.[facility]In the event this information is protected by the Federal Confidentiality of Alcohol and Drug Abuse Patient Records regulations: The Federal rules restrict any use of the information to criminally investigate or prosecute any alcohol or drug abuse patient.[facility]In the event this information is protected by the Federal Confidentiality of Alcohol and Drug Abuse Patient Records regulations: The Federal rules restrict any use of the information to criminally investigate or prosecute any alcohol or drug abuse patient.[facility]In the event this information is protected by the Federal Confidentiality of Alcohol and Drug Abuse Patient Records regulations: The Federal rules restrict any use of the information to criminally investigate or prosecute any alcohol or drug abuse patient.[facility]In the event this information is protected by the Federal Confidentiality of Alcohol and Drug Abuse Patient Records regulations: The Federal rules restrict any use of the information to criminally investigate or prosecute any alcohol or drug abuse patient.[facility]In the event this information is protected by the Federal Confidentiality of Alcohol and Drug Abuse Patient Records regulations: The Federal rules restrict any use of the information to criminally investigate or prosecute any alcohol or drug abuse patient.[facility]In the event this information is protected by the Federal Confidentiality of Alcohol and Drug Abuse Patient Records regulations: The Federal rules restrict any use of the information to criminally investigate or prosecute any alcohol or drug abuse patient.[facility]In the event this information is protected by the Federal Confidentiality of Alcohol and Drug Abuse Patient Records regulations: The Federal rules restrict any use of the information to criminally investigate or prosecute any alcohol or drug abuse patient.[facility]In the event this information is protected by the Federal Confidentiality of Alcohol and Drug Abuse Patient Records regulations: The Federal rules restrict any use of the information to criminally investigate or prosecute any alcohol or drug abuse patient.[facility]In the event this information is protected by the Federal Confidentiality of Alcohol and Drug Abuse Patient Records regulations: The Federal rules restrict any use of the information to criminally investigate or prosecute any alcohol or drug abuse patient.[facility]In the event this information is protected by the Federal Confidentiality of Alcohol and Drug Abuse Patient Records regulations: The Federal rules restrict any use of the information to criminally investigate or prosecute any alcohol or drug abuse patient.[facility] WestIn the event this information is protected by the Federal Confidentiality of Alcohol and Drug Abuse Patient Records regulations: The Federal rules restrict any use of the information to criminally investigate or prosecute any alcohol or drug abuse patient.[facility] WestIn the event this information is protected by the Federal Confidentiality of Alcohol and Drug Abuse Patient Records regulations: The Federal rules restrict any use of the information to criminally investigate or prosecute any alcohol or drug abuse patient.[facility]In the event this information is protected by the Federal Confidentiality of Alcohol and Drug Abuse Patient Records regulations: The Federal rules restrict any use of the information to criminally investigate or prosecute any alcohol or drug abuse patient.[facility]In the event this information is protected by the Federal Confidentiality of Alcohol and Drug Abuse Patient Records regulations: The Federal rules restrict any use of the information to criminally investigate or prosecute any alcohol or drug abuse patient.[facility]In the event this information is protected by the Federal Confidentiality of Alcohol and Drug Abuse Patient Records regulations: The Federal rules restrict any use of the information to criminally investigate or prosecute any alcohol or drug abuse patient.[facility] WestIn the event this information is protected by the Federal Confidentiality of Alcohol and Drug Abuse Patient Records regulations: The Federal rules restrict any use of the information to criminally investigate or prosecute any alcohol or drug abuse patient.[facility] WestIn the event this information is protected by the Federal Confidentiality of Alcohol and Drug Abuse Patient Records regulations: The Federal rules restrict any use of the information to criminally investigate or prosecute any alcohol or drug abuse patient.[facility] WestIn the event this information is protected by the Federal Confidentiality of Alcohol and Drug Abuse Patient Records regulations: The Federal rules restrict any use of the information to criminally investigate or prosecute any alcohol or drug abuse patient.[facility]In the event this information is protected by the Federal Confidentiality of Alcohol and Drug Abuse Patient Records regulations: The Federal rules restrict any use of the information to criminally investigate or prosecute any alcohol or drug abuse patient.[facility]In the event this information is protected by the Federal Confidentiality of Alcohol and Drug Abuse Patient Records regulations: The Federal rules restrict any use of the information to criminally investigate or prosecute any alcohol or drug abuse patient.[facility]In the event this information is protected by the Federal Confidentiality of Alcohol and Drug Abuse Patient Records regulations: The Federal rules restrict any use of the information to criminally investigate or prosecute any alcohol or drug abuse patient.[facility]In the event this information is protected by the Federal Confidentiality of Alcohol and Drug Abuse Patient Records regulations: The Federal rules restrict any use of the information to criminally investigate or prosecute any alcohol or drug abuse patient.[facility] WestIn the event this information is protected by the Federal Confidentiality of Alcohol and Drug Abuse Patient Records regulations: The Federal rules restrict any use of the information to criminally investigate or prosecute any alcohol or drug abuse patient.[facility] WestIn the event this information is protected by the Federal Confidentiality of Alcohol and Drug Abuse Patient Records regulations: The Federal rules restrict any use of the information to criminally investigate or prosecute any alcohol or drug abuse patient.[facility] WestIn the event this information is protected by the Federal Confidentiality of Alcohol and Drug Abuse Patient Records regulations: The Federal rules restrict any use of the information to criminally investigate or prosecute any alcohol or drug abuse patient.[facility] WestIn the event this information is protected by the Federal Confidentiality of Alcohol and Drug Abuse Patient Records regulations: The Federal rules restrict any use of the information to criminally investigate or prosecute any alcohol or drug abuse patient.[facility] WestIn the event this information is protected by the Federal Confidentiality of Alcohol and Drug Abuse Patient Records regulations: The Federal rules restrict any use of the information to criminally investigate or prosecute any alcohol or drug abuse patient.[facility] WestIn the event this information is protected by the Federal Confidentiality of Alcohol and Drug Abuse Patient Records regulations: The Federal rules restrict any use of the information to criminally investigate or prosecute any alcohol or drug abuse patient.[facility] WestIn the event this information is protected by the Federal Confidentiality of Alcohol and Drug Abuse Patient Records regulations: The Federal rules restrict any use of the information to criminally investigate or prosecute any alcohol or drug abuse patient.[facility] WestIn the event this information is protected by the Federal Confidentiality of Alcohol and Drug Abuse Patient Records regulations: The Federal rules restrict any use of the information to criminally investigate or prosecute any alcohol or drug abuse patient.[facility] WestIn the event this information is protected by the Federal Confidentiality of Alcohol and Drug Abuse Patient Records regulations: The Federal rules restrict any use of the information to criminally investigate or prosecute any alcohol or drug abuse patient.[facility] WestIn the event this information is protected by the Federal Confidentiality of Alcohol and Drug Abuse Patient Records regulations: The Federal rules restrict any use of the information to criminally investigate or prosecute any alcohol or drug abuse patient.[facility] WestIn the event this information is protected by the Federal Confidentiality of Alcohol and Drug Abuse Patient Records regulations: The Federal rules restrict any use of the information to criminally investigate or prosecute any alcohol or drug abuse patient.[facility] WestIn the event this information is protected by the Federal Confidentiality of Alcohol and Drug Abuse Patient Records regulations: The Federal rules restrict any use of the information to criminally investigate or prosecute any alcohol or drug abuse patient.[facility] WestIn the event this information is protected by the Federal Confidentiality of Alcohol and Drug Abuse Patient Records regulations: The Federal rules restrict any use of the information to criminally investigate or prosecute any alcohol or drug abuse patient.[facility] WestIn the event this information is protected by the Federal Confidentiality of Alcohol and Drug Abuse Patient Records regulations: The Federal rules restrict any use of the information to criminally investigate or prosecute any alcohol or drug abuse patient.[facility] WestIn the event this information is protected by the Federal Confidentiality of Alcohol and Drug Abuse Patient Records regulations: The Federal rules restrict any use of the information to criminally investigate or prosecute any alcohol or drug abuse patient.[facility] WestIn the event this information is protected by the Federal Confidentiality of Alcohol and Drug Abuse Patient Records regulations: The Federal rules restrict any use of the information to criminally investigate or prosecute any alcohol or drug abuse patient.[facility] WestIn the event this information is protected by the Federal Confidentiality of Alcohol and Drug Abuse Patient Records regulations: The Federal rules restrict any use of the information to criminally investigate or prosecute any alcohol or drug abuse patient.[facility] WestIn the event this information is protected by the Federal Confidentiality of Alcohol and Drug Abuse Patient Records regulations: The Federal rules restrict any use of the information to criminally investigate or prosecute any alcohol or drug abuse patient.[facility] WestIn the event this information is protected by the Federal Confidentiality of Alcohol and Drug Abuse Patient Records regulations: The Federal rules restrict any use of the information to criminally investigate or prosecute any alcohol or drug abuse patient.[facility] WestIn the event this information is protected by the Federal Confidentiality of Alcohol and Drug Abuse Patient Records regulations: The Federal rules restrict any use of the information to criminally investigate or prosecute any alcohol or drug abuse patient.[facility] WestIn the event this information is protected by the Federal Confidentiality of Alcohol and Drug Abuse Patient Records regulations: The Federal rules restrict any use of the information to criminally investigate or prosecute any alcohol or drug abuse patient.[facility] WestIn the event this information is protected by the Federal Confidentiality of Alcohol and Drug Abuse Patient Records regulations: The Federal rules restrict any use of the information to criminally investigate or prosecute any alcohol or drug abuse patient.[facility] WestIn the event this information is protected by the Federal Confidentiality of Alcohol and Drug Abuse Patient Records regulations: The Federal rules restrict any use of the information to criminally investigate or prosecute any alcohol or drug abuse patient.[facility] WestIn the event this information is protected by the Federal Confidentiality of Alcohol and Drug Abuse Patient Records regulations: The Federal rules restrict any use of the information to criminally investigate or prosecute any alcohol or drug abuse patient.[facility] WestIn the event this information is protected by the Federal Confidentiality of Alcohol and Drug Abuse Patient Records regulations: The Federal rules restrict any use of the information to criminally investigate or prosecute any alcohol or drug abuse patient.[facility] WestIn the event this information is protected by the Federal Confidentiality of Alcohol and Drug Abuse Patient Records regulations: The Federal rules restrict any use of the information to criminally investigate or prosecute any alcohol or drug abuse patient.[facility] WestIn the event this information is protected by the Federal Confidentiality of Alcohol and Drug Abuse Patient Records regulations: The Federal rules restrict any use of the information to criminally investigate or prosecute any alcohol or drug abuse patient.[facility] WestIn the event this information is protected by the Federal Confidentiality of Alcohol and Drug Abuse Patient Records regulations: The Federal rules restrict any use of the information to criminally investigate or prosecute any alcohol or drug abuse patient.[facility] WestIn the event this information is protected by the Federal Confidentiality of Alcohol and Drug Abuse Patient Records regulations: The Federal rules restrict any use of the information to criminally investigate or prosecute any alcohol or drug abuse patient.[facility] WestIn the event this information is protected by the Federal Confidentiality of Alcohol and Drug Abuse Patient Records regulations: The Federal rules restrict any use of the information to criminally investigate or prosecute any alcohol or drug abuse patient.[facility] WestIn the event this information is protected by the Federal Confidentiality of Alcohol and Drug Abuse Patient Records regulations: The Federal rules restrict any use of the information to criminally investigate or prosecute any alcohol or drug abuse patient.[facility] WestIn the event this information is protected by the Federal Confidentiality of Alcohol and Drug Abuse Patient Records regulations: The Federal rules restrict any use of the information to criminally investigate or prosecute any alcohol or drug abuse patient.[facility] WestIn the event this information is protected by the Federal Confidentiality of Alcohol and Drug Abuse Patient Records regulations: The Federal rules restrict any use of the information to criminally investigate or prosecute any alcohol or drug abuse patient.[facility]In the event this information is protected by the Federal Confidentiality of Alcohol and Drug Abuse Patient Records regulations: The Federal rules restrict any use of the information to criminally investigate or prosecute any alcohol or drug abuse patient.[facility]In the event this information is protected by the Federal Confidentiality of Alcohol and Drug Abuse Patient Records regulations: The Federal rules restrict any use of the information to criminally investigate or prosecute any alcohol or drug abuse patient.[facility] WestIn the event this information is protected by the Federal Confidentiality of Alcohol and Drug Abuse Patient Records regulations: The Federal rules restrict any use of the information to criminally investigate or prosecute any alcohol or drug abuse patient.[facility] WestIn the event this information is protected by the Federal Confidentiality of Alcohol and Drug Abuse Patient Records regulations: The Federal rules restrict any use of the information to criminally investigate or prosecute any alcohol or drug abuse patient.[facility] WestIn the event this information is protected by the Federal Confidentiality of Alcohol and Drug Abuse Patient Records regulations: The Federal rules restrict any use of the information to criminally investigate or prosecute any alcohol or drug abuse patient.[facility] WestIn the event this information is protected by the Federal Confidentiality of Alcohol and Drug Abuse Patient Records regulations: The Federal rules restrict any use of the information to criminally investigate or prosecute any alcohol or drug abuse patient.[facility] WestIn the event this information is protected by the Federal Confidentiality of Alcohol and Drug Abuse Patient Records regulations: The Federal rules restrict any use of the information to criminally investigate or prosecute any alcohol or drug abuse patient.[facility] WestIn the event this information is protected by the Federal Confidentiality of Alcohol and Drug Abuse Patient Records regulations: The Federal rules restrict any use of the information to criminally investigate or prosecute any alcohol or drug abuse patient.[facility]In the event this information is protected by the Federal Confidentiality of Alcohol and Drug Abuse Patient Records regulations: The Federal rules restrict any use of the information to criminally investigate or prosecute any alcohol or drug abuse patient.[facility] WestIn the event this information is protected by the Federal Confidentiality of Alcohol and Drug Abuse Patient Records regulations: The Federal rules restrict any use of the information to criminally investigate or prosecute any alcohol or drug abuse patient.[facility] WestIn the event this information is protected by the Federal Confidentiality of Alcohol and Drug Abuse Patient Records regulations: The Federal rules restrict any use of the information to criminally investigate or prosecute any alcohol or drug abuse patient.[facility] Reason for Visit (unrecogniz ed section and content) Reason Comments Spirometry Specialty Diagnoses / Procedures Referred By Harvey armas Referred To Contact [facility] Diagnoses Chronic obstructive pulmonary disease, unspecified COPD type (HCC) Procedures SPIROMETRY WITH DILATOR IF OBSTRUCTED BRNCDILAT RSPSE SPMTRY PRE&POST-BRNCDILAT ADMN Cheyanne Cortez, FIFI.PLANOGRAPH OPERATOR [address] [place] [address] [facility] [address] [place] [address] Referral ID Status Reason Start Date Expiration Date V isits Requested Visits Authorized [id number] Closed Auto-Generate d Referral 11/10/2021 08/22/2022 1 1 Specialty Diagnoses / Procedures Referred By Harvey armas Referred To Contact [facility] Diagnoses Asthma, unspecified asthma severity, unspecified whether complicated, unspecified whether persistent Procedures NITRIC OXIDE, EXHALED NITRIC OXIDE GAS DETERMINATION Penny Garner MD [address] [place] [address] [facility] [address] [place] [address] Referral ID Status Reason Start Date Expiration Date V isits Requested Visits Authorized [id number] Closed Auto-Generate d Referral 11/25/2021 08/22/2022 1 1 Reason Comments Consult COPD Specialty Diagnoses / Procedures Referred By Contac t Referred To Contact Pulmonary and Critical Care Medicine / PULMONARY MEDICINE Diagnoses Chronic obstructive pulmonary disease, unspecified COPD type (HCC) [J44.9] Procedures RI NEW COPD Mariluz High MD [address] [place] [address] Penny Garner MD [address] [place] [address] Referral ID Status Reason Start Date Expiration Date V isits Requested Visits Authorized [id number] Closed Financial Clearance Required - OON Payor Patient Cleared INN/SMCP Payor Auth Obtained 11/25/2021 08/22/2022 1 1 Reason Comments New Patient chest pain Specialty Diagnoses / Procedures Referred By Contac t Referred To Contact Cardiology Diagnoses Chest pain, unspecified type Procedures CONSULT TO CARDIOLOGY OFFICE/OUTPATIENT NEW HIGH MDM 60-74 MINUTES Older, SONAM Edward [address] [place] [address] Referral ID Status Reason Start Date Expiration Date V isits Requested Visits Authorized [id number] Closed PCP Requested Referral 10/30/2021 10/30/2022 1 1 Reason Comments Results Reason Onset Date Comments Refill Request 12/17/2021 Reason Comments Recheck Specialty Diagnoses / Procedures Referred By Contac t Referred To Contact Pulmonary and Critical Care Medicine / PULMONARY MEDICINE Diagnoses Follow-up examination 6 wk follow up Procedures OFFICE/OUTPATIENT ESTABLISHED MOD MDM 30-39 MIN RI EST COPD Penny Garner MD [address] [place] [address] Florina Arenas PA-C [address] [address] Referral ID Status Reason Start Date Expiration Date Visits Re quested Visits Authorized [id number] Closed 01/08/2022 08/22/2022 1 1 Reason Onset Date Comments Refill Request 01/14/2022 Reason Comments Refill Request Reason Onset Date Comments Refill Request 02/17/2022 Reason Comments Recheck Medication follow up . R foot pain Specialty Diagnoses / Procedures Referred By Contac t Referred To Contact Internal Medicine / INTERNAL MEDICINE Diagnoses discuss medication options Procedures 4C EST Cheyanne Cortez ROOF TRUSS DETAILER.PLANOGRAPH OPERATOR [address] [place] [address] Cheyanne Cortez ROOF TRUSS DETAILER.PLANOGRAPH OPERATOR [address] [place] [address] Referral ID Status Reason Start Date Expiration Date Visits Re quested Visits Authorized [id number] Closed 02/25/2022 08/22/2022 1 1 Reason Comments Consult Initial [facility] Pt Outr each Reason Comments Consult [facility] Pt Outreach F/U Reason Onset Date Comments Population Health Navigation Outreach 05/27/2022 [facility] care gaps Reason Onset Date Comments Refill Request 05/29/2022 Reason Onset Date Comments Population Health Navigation Outreach 07/09/2022 [facility] Reason Comments Established Patient 6 month follow up Specialty Diagnoses / Procedures Referred By Contac t Referred To Contact Pulmonary and Critical Care Medicine / PULMONARY MEDICINE Diagnoses Follow-up examination 6 wk follow up Procedures OFFICE/OUTPATIENT ESTABLISHED MOD MDM 30-39 MIN RI EST COPD Penny Garner MD [address] [place] [address] Florina Arenas PA-C [address] [place] [address] Reason Comments mammogram order Reason Onset Date Comments Refill Request 09/30/2022 Reason Comments Recheck Follow up, anxiety Reason Comments Yearly Exam Annual exam Reason Comments Results Reason Comments Recheck Follow up Reason Comments yearly check Reason Comments Established Patient 5 month follow up Reason Comments Results Reason Comments Patient Update Reason Comments New Patient LCS Specialty Diagnoses / Procedures Referred By Contac t Referred To Contact [facility] Diagnoses Hypoxia Procedures OXIMETRY WITH AMBULATION NONINVASIVE EAR/PULSE OXIMETRY MULTIPLE DETER Aaron Moura ROOF TRUSS DETAILER.PLANOGRAPH OPERATOR [address] [place] [address] [facility] [address] [place] [address] Referral ID Status Reason Start Date Expiration Date V isits Requested Visits Authorized [id number] Closed Auto-Generate d Referral 12/22/2022 01/21/2024 1 1 Reason Comments F/U 3 Month Reason Onset Date Comments Refill Request 05/20/2023 Reason Comments Patient Question Reason Comments Radiology US Specialty Diagnoses / Procedures Referred By Contac t Referred To Contact [facility] Diagnoses Abnormal mammogram Procedures US BREAST LTD LEFT US BREAST UNI REAL TIME WITH IMAGE LIMITED Cheyanne Cortez ROOF TRUSS DETAILER.PLANOGRAPH OPERATOR [address] [place] [address] [facility] [address] [place] [address] Referral ID Status Reason Start Date Expiration Date V isits Requested Visits Authorized [id number] Closed Auto-Generate d Referral 12/21/2022 01/20/2024 [address] Specialty Diagnoses / Procedures Referred By Contac t Referred To Contact CT IMAG[facility] Diagnoses Encounter for screening for lung cancer Tobacco use current Procedures CT LUNG SCREEN WO IVCON COMPUTED TOMOGRAPHY THORAX LW DOSE LNG CA Aaron Barrera APRN.PLANOGRAPH OPERATOR [address] [place] [address] [facility] Referral ID Status Reason Start Date Expiration Date V isits Requested Visits Authorized [id number] Closed Auto-Generate d Referral 12/22/2022 01/21/2024 1 1 Reason Comments Radiology NM Specialty Diagnoses / Procedures Referred By Contac t Referred To Contact [facility]LEC[facility] Diagnoses Chest pain, unspecified type Encounter for screening for cardiovascular disorders PORTILLO (dyspnea on exertion) Procedures NM CARDIAC PERF STRESS/PHARM MYOCARDIAL SPECT MULTIPLE STUDIES Felicity Forrest, ROOF TRUSS DETAILER.PLANOGRAPH OPERATOR [address] [place] [address] Molecular [facility] Functional [facility] [address] [place] [address] Referral ID Status Reason Start Date Expiration Date V isits Requested Visits Authorized [id number] Closed Auto-Generate d Referral 11/30/2022 12/30/2023 1 1 Reason Comments [facility] Reason Comments Follow Up Reason Comments Rosio BRUNO Reason Comments Rx issue Reason Comments Sara BRUNO Reason Onset Date Comments Refill Request 10/10/2023 Reason Comments Orders Reason Comments Follow Up meds- mounjaro, anxi ety, c/o more SOB and review xray results Reason Comments Medication Problem Reason Onset Date Comments Population Health Navigation Outreach 10/28/2023 [facility] Annual Wellness Visit Specialty Diagnoses / Procedures Referred By Contac t Referred To Contact [facility] Diagnoses Asthma-COPD overlap syndrome (HCC) Procedures OXIMETRY WITH AMBULATION NONINVASIVE EAR/PULSE OXIMETRY MULTIPLE Florina Brown PA-C [address] [place] [address] [place] [address] [place] [address] Referral ID Status Reason Start Date Expiration Date V isits Requested Visits Authorized [id number] Closed Auto-Generate d Referral 10/21/2023 11/19/2024 1 1 Reason Comments Asthma Reason Onset Date Comments Refill Request 11/24/2023 Reason Onset Date Comments Refill Request 12/04/2023 Reason Onset Date Comments Refill Request 12/15/2023 Specialty Diagnoses / Procedures Referred By Contac t Referred To Contact [facility] Diagnoses Asthma-COPD overlap syndrome (HCC) Procedures SPIROMETRY WITH DILATOR IF OBSTRUCTED BRNCDILAT RSPSE SPMTRY PRE&POST-BRNCDILAT ADMFlornia Alonso PA-C [address] [place] [address] [facility] [address] [place] [address] Referral ID Status Reason Start Date Expiration Date V isits Requested Visits Authorized [id number] Closed Auto-Generate d Referral 11/09/2023 12/08/2024 1 1 Reason Comments Established Patient 6 week follow up Reason Onset Date Comments Refill Request 01/31/2024 Reason Onset Date Comments Refill Request 02/11/2024 Reason Onset Date Comments Population Health Navigation Outreach 05/15/2024 [facility], [facility], Care gaps, HCC, [place] [facility] Reason Comments Eye Pain Patient complains of eye pressure x 2-3 days with redness Reason Onset Date Comments Population Health Navigation Outreach 06/28/2024 [facility]CAmanda [place] [facility] Reason Onset Date Comments Refill Request 07/06/2024 Reason Comments Med Change Request Reason Comments Results Orders Reason Comments Follow Up discuss medication a nd weight gain Reason Comments Insurance Authorization Reason Onset Date Comments Refill Request 08/04/2024 Reason Onset Date Comments Refill Request 08/06/2024 Reason Comments COPD Asthma Reason Comments Follow Up Labs Reason Onset Date Comments Refill Request 08/17/2024 Reason Onset Date Comments Refill Request 08/23/2024 Reason Onset Date Comments Refill Request 09/20/2024 Reason Comments Medication Question Reason Onset Date Comments Refill Request 10/09/2024 Reason Comments Established Patient Follow-Up Specialty Diagnoses / Procedures Referred By Conttiffany t Referred To Contact CT IM[facility] Diagnoses Cigarette smoker Encounter for screening for lung cancer Procedures CT LUNG SCREEN WO IVCON COMPUTED TOMOGRAPHY THORAX LW DOSE LNG CA SCR Katherine- Aaron Moura, ROOF TRUSS DETAILER.PLANOGRAPH OPERATOR [address] [place] [address] Phone: tel: fax: [facility] [place] [address] Referral ID Status Reason Start Date Expiration Date V isits Requested Visits Authorized [id number] Closed Auto-Generate d Referral 08/23/2024 08/22/2025 1 1 Reason Onset Date Comments Refill Request 11/05/2024 Care Teams (unrecognized sec tion and content) Plant Machinist Relationship Specialty Start Date End Date Mariluz High MD [address] [place] [address] PCP - General Internal Medicine 03/31/16 Plant Machinist Relationship Specialty Start Date End Date Mariluz High MD [address] [place], [place] [id number] PCP - General Internal Medicine 03/31/16 Plant Machinist Relationship Specialty Start Date End Date Mariluz High MD [address] [place], [place] [id number] PCP - General Internal Medicine 03/31/16 Plant Machinist Relationship Specialty Start Date End Date Mariluz High MD [address] [place] [address] PCP - General Internal Medicine 03/31/16 Plant Machinist Relationship Specialty Start Date End Date Mariluz High MD [address] [place] [address] PCP - General Internal Medicine 03/31/16 Plant Machinist Relationship Specialty Start Date End Date Mariluz High MD [address] [place] [address] PCP - General Internal Medicine 03/31/16 Plant Machinist Relationship Specialty Start Date End Date Mariluz High MD [address] [place] [address] PCP - General Internal Medicine 03/31/16 Plant Machinist Relationship Specialty Start Date End Date Mariluz High MD [address] [place] [address] PCP - General Internal Medicine 03/31/16 Plant Machinist Relationship Specialty Start Date End Date Mariluz High MD [address] [place] [address] PCP - General Internal Medicine 03/31/16 Plant Machinist Relationship Specialty Start Date End Date Mariluz High MD [address] [place] [address] PCP - General Internal Medicine 03/31/16 Plant Machinist Relationship Specialty Start Date End Date Mariluz High MD [address] [place] [address] PCP - General Internal Medicine 03/31/16 Plant Machinist Relationship Specialty Start Date End Date Mariluz High MD [address] [place] [address] PCP - General Internal Medicine 03/31/16 Plant Machinist Relationship Specialty Start Date End Date Mariluz High MD [address] [facility] [address] PCP - General Internal Medicine 03/31/16 Plant Machinist Relationship Specialty Start Date End Date Mariluz High MD [address] [facility] [place] [address] PCP - General Internal Medicine 03/31/16 Plant Machinist Relationship Specialty Start Date End Date Mariluz High MD [address] [facility] [place] [address] PCP - General Internal Medicine 03/31/16 Plant Machinist Relationship Specialty Start Date End Date Mariluz High MD [address] [facility] [place] [address] PCP - General Internal Medicine 03/31/16 Plant Machinist Relationship Specialty Start Date End Date Mariluz High MD [address] [facility] [place] [address] PCP - General Internal Medicine 03/31/16 Plant Machinist Relationship Specialty Start Date End Date Mariluz High MD [address] [place] [address] PCP - General Internal Medicine 03/31/16 Plant Machinist Relationship Specialty Start Date End Date Mariluz High MD [address] [facility] [place] [address] PCP - General Internal Medicine 03/31/16 Team Status: Active Member Role Status Dates Dr. Claribel Hatch MD Family Provider Active Reji Carr INTERPRETER, INTERPRETER-C Primary Care Provider Active Team Status: Inactive Member Role Status Dates Reji Carr NP, INTERPRETER-C Primary Care Provider Active Dr. Heriberto Gill MD Referring Provider, Emergency Pro vider Active Plant Machinist Relationship Specialty Start Date End Date Mariluz High MD [address] [facility] [place] [address] PCP - General Internal Medicine 03/31/16 Plant Machinist Relationship Specialty Start Date End Date Mariluz High MD [address] [facility] [place] [address] PCP - General Internal Medicine 03/31/16 Plant Machinist Relationship Specialty Start Date End Date Mariluz High MD [address] [place] [address] PCP - General Internal Medicine 03/31/16 Plant Machinist Relationship Specialty Start Date End Date Mariluz High MD [address] [place] [address] PCP - General Internal Medicine 03/31/16 Plant Machinist Relationship Specialty Start Date End Date Mariluz High MD [address] [place] [address] PCP - General Internal Medicine 03/31/16 Plant Machinist Relationship Specialty Start Date End Date Mariluz High MD [address] [place] [address] PCP - General Internal Medicine 03/31/16 Plant Machinist Relationship Specialty Start Date End Date Mariluz High MD [address] [place] [address] PCP - General Internal Medicine 03/31/16 Plant Machinist Relationship Specialty Start Date End Date Mariluz High MD [address] [facility] [place] [address] PCP - General Internal Medicine 03/31/16 Plant Machinist Relationship Specialty Start Date End Date Mariluz High MD [address] [place] [address] PCP - General Internal Medicine 03/31/16 Plant Machinist Relationship Specialty Start Date End Date Mariluz High MD [address] [facility] [place] [address] PCP - General Internal Medicine 03/31/16 Plant Machinist Relationship Specialty Start Date End Date Mariluz High MD [address] [facility] [place] [address] PCP - General Internal Medicine 03/31/16 Plant Machinist Relationship Specialty Start Date End Date Mariluz High MD [address] [facility] [place] [address] PCP - General Internal Medicine 03/31/16 Plant Machinist Relationship Specialty Start Date End Date Mariluz High MD [address] [facility] [place] [address] PCP - General Internal Medicine 03/31/16 Plant Machinist Relationship Specialty Start Date End Date Mariluz High MD [address] [facility] [place] [address] PCP - General Internal Medicine 03/31/16 Plant Machinist Relationship Specialty Start Date End Date Mariluz High MD [address] [facility] [place] [address] PCP - General Internal Medicine 03/31/16 Plant Machinist Relationship Specialty Start Date End Date Mariluz High MD [address] [facility] [place] [address] PCP - General Internal Medicine 03/31/16 Plant Machinist Relationship Specialty Start Date End Date Mariluz High MD [address] [facility] [place] [address] PCP - General Internal Medicine 03/31/16 Plant Machinist Relationship Specialty Start Date End Date Mariluz High MD [address] [facility] [place] [address] PCP - General Internal Medicine 03/31/16 Plant Machinist Relationship Specialty Start Date End Date Mariluz High MD [address] [facility] [place] [address] PCP - General Internal Medicine 03/31/16 Plant Machinist Relationship Specialty Start Date End Date Mariluz High MD [address] [place] [address] PCP - General Internal Medicine 03/31/16 Plant Machinist Relationship Specialty Start Date End Date Mariluz High MD [address] [place] [address] PCP - General Internal Medicine 03/31/16 Plant Machinist Relationship Specialty Start Date End Date Mariluz High MD [address] [place] [address] PCP - General Internal Medicine 03/31/16 Plant Machinist Relationship Specialty Start Date End Date Mariluz High MD [address] [place] [address] PCP - General Internal Medicine 03/31/16 Plant Machinist Relationship Specialty Start Date End Date Mariluz High MD [address] [facility] [place] [address] PCP - General Internal Medicine 03/31/16 Plant Machinist Relationship Specialty Start Date End Date Mariluz High MD [address] [place] [address] PCP - General Internal Medicine 03/31/16 Plant Machinist Relationship Specialty Start Date End Date Mariluz High MD [address] [place] [address] PCP - General Internal Medicine 03/31/16 Plant Machinist Relationship Specialty Start Date End Date Mariluz High MD [address] [place] [address] PCP - General Internal Medicine 03/31/16 Plant Machinist Relationship Specialty Start Date End Date Mariluz High MD [address] [place] [address] PCP - General Internal Medicine 03/31/16 Plant Machinist Relationship Specialty Start Date End Date Mariluz High MD [address] [place] [address] PCP - General Internal Medicine 03/31/16 Plant Machinist Relationship Specialty Start Date End Date Mariluz High MD [address] [place] [address] PCP - General Internal Medicine 03/31/16 Plant Machinist Relationship Specialty Start Date End Date Mariluz High MD [address] [place] [address] PCP - General Internal Medicine 03/31/16 Plant Machinist Relationship Specialty Start Date End Date Mariluz High MD [address] [place] [address] PCP - General Internal Medicine 03/31/16 Plant Machinist Relationship Specialty Start Date End Date Mariluz High MD [address] [place] [address] PCP - General Internal Medicine 03/31/16 Plant Machinist Relationship Specialty Start Date End Date Mariluz High MD [address] [facility] [place] [address] PCP - General Internal Medicine 03/31/16 Plant Machinist Relationship Specialty Start Date End Date Mariluz High MD [address] [facility] [place] [address] PCP - General Internal Medicine 03/31/16 Plant Machinist Relationship Specialty Start Date End Date Mariluz High MD [address] [facility] [place] [address] PCP - General Internal Medicine 03/31/16 Plant Machinist Relationship Specialty Start Date End Date Mariluz High MD [address] [place] [address] PCP - General Internal Medicine 03/31/16 Plant Machinist Relationship Specialty Start Date End Date [facility] PCP - General Clinical Nurse Specialist Chronic Care 06/16/24 Plant Machinist Relationship Specialty Start Date End Date [facility] PCP - General Clinical Nurse Specialist Chronic Care 06/16/24 Plant Machinist Relationship Specialty Start Date End Date Mariulz High MD [address] [facility] [place] [address] PCP - General Internal Medicine 03/31/16 Plant Machinist Relationship Specialty Start Date End Date Mariluz High MD [address] [facility] [place] [address] PCP - General Internal Medicine 03/31/16 Plant Machinist Relationship Specialty Start Date End Date Mariluz High MD [address] [facility] [place] [address] PCP - General Internal Medicine 03/31/16 Plant Machinist Relationship Specialty Start Date End Date Mariluz High MD [address] [facility] [place] [address] PCP - General Internal Medicine 03/31/16 Plant Machinist Relationship Specialty Start Date End Date Mariluz High MD [address] [facility] [place] [address] PCP - General Internal Medicine 03/31/16 Sona Cullen PA-C [address] [place] [address] Belling Machine Operator Family Medicine 07/30/24 Cheyanne Cortez APRN.PLANOGRAPH OPERATOR [address] [facility] [place] [address] Belling Machine Operator Internal Medicine 07/30/24 Sg Clemons PA-C [address] [facility] [place] [address] Belling Machine Operator Family Medicine 07/30/24 Plant Machinist Relationship Specialty Start Date End Date Mariluz High MD [address] [facility] [place] [address] PCP - General Internal Medicine 03/31/16 Sona Cullen PA-C [address] [place] [address] Belling Machine Operator Family Medicine 07/30/24 Cheyanne Cortez APRN.PLANOGRAPH OPERATOR [address] [place] [address] Belling Machine Operator Internal Medicine 07/30/24 Sg Clemons PA-C [address] [place] [address] Belling Machine Operator Family Medicine 07/30/24 Plant Machinist Relationship Specialty Start Date End Date Mariluz High MD [address] [place] [address] PCP - General Internal Medicine 03/31/16 Sona Cullen PA-C [address] [place] [address] Belling Machine Operator Family Medicine 07/30/24 Cheyanne Cortez APRN.PLANOGRAPH OPERATOR [address] [place] [address] Belling Machine Operator Internal Medicine 07/30/24 Sg Clemons PA-C [address] [place] [address] Belling Machine Operator Family [facility] 07/30/24 Plant Machinist Relationship Specialty Start Date End Date Mariluz High MD [address] [place] [address] PCP - General Internal Medicine 03/31/16 Sona Cullen PA-C [address] [place] [address] Belling Machine Operator Family Medicine 07/30/24 Cheyanne Cortez APRN.PLANOGRAPH OPERATOR [address] [place] [address] Belling Machine Operator Internal Medicine 07/30/24 Sg Clemons PA-C [address] [facility] [place] [address] Belling Machine Operator Family Medicine 07/30/24 Plant Machinist Relationship Specialty Start Date End Date Mariluz High MD [address] [facility] [place] [address] PCP - General Internal Medicine 03/31/16 Sona Cullen PA-C [address] [place], [place] [address] [phone] Belling Machine Operator Family Medicine 07/30/24 Cheyanne Cortez APRN.PLANOGRAPH OPERATOR [address] [place] [address] Belling Machine Operator Internal Medicine 07/30/24 Sg Clemons PA-C [address] [place] [address] Belling Machine Operator Family Medicine 07/30/24 Plant Machinist Relationship Specialty Start Date End Date Mariluz High MD [address] [place] [address] PCP - General Internal Medicine 03/31/16 Sona Cullen PA-C [address] [place], [place] [id number] Belling Machine Operator Family Medicine 07/30/24 Cheyanne Cortez APRN.PLANOGRAPH OPERATOR [address] [place] [address] Belling Machine Operator Internal Medicine 07/30/24 Sg Clemons PA-C [address] [place] [address] Belling Machine Operator Family Medicine 07/30/24 Plant Machinist Relationship Specialty Start Date End Date Mariluz High MD [address] [place] [address] PCP - General Internal Medicine 03/31/16 Sona Cullen PA-C [address] [place] [address] Belling Machine Operator Family Medicine 07/30/24 Cheyanne Cortez APRN.PLANOGRAPH OPERATOR [address] [place] [address] Belling Machine Operator Internal Medicine 07/30/24 Sg Clemons PA-C [address] [place] [address] Belling Machine Operator Family Medicine 07/30/24 Plant Machinist Relationship Specialty Start Date End Date Mariluz High MD [address] [place] [address] PCP - General Internal Medicine 03/31/16 Sona Cullen PA-C [address] [place] [address] Belling Machine Operator Family Medicine 07/30/24 Cheyanne Cortez APRN.PLANOGRAPH OPERATOR [address] [place] [address] Belling Machine Operator Internal Medicine 07/30/24 Sg Clemons PA-C [address] [place] [address] Belling Machine Operator Family Medicine 07/30/24 Plant Machinist Relationship Specialty Start Date End Date Mariluz High MD [address] [facility] [place] [address] PCP - General Internal Medicine 03/31/16 Sona Cullen PA-C [address] [place] [address] Belling Machine Operator Family Medicine 07/30/24 Cheyanne Cortez APRN.PLANOGRAPH OPERATOR [address] [facility] [place] [address] Belling Machine Operator Internal Medicine 07/30/24 Sg Clemons PA-C [address] [facility] [place] [address] Belling Machine Operator Family Medicine 07/30/24 Plant Machinist Relationship Specialty Start Date End Date Mariluz High MD [address] [facility] [place] [address] PCP - General Internal Medicine 03/31/16 Sona Cullen PA-C [address] [place] [address] Belling Machine Operator Family Medicine 07/30/24 Cheyanne Cortez APRN.PLANOGRAPH OPERATOR [address] [facility] [place] [address] Belling Machine Operator Internal Medicine 07/30/24 Sg Clemons PA-C [address] [facility] [place] [address] Belling Machine Operator Family Medicine 07/30/24 Plant Machinist Relationship Specialty Start Date End Date Mariluz High MD [address] [place] [address] PCP - General Internal Medicine 03/31/16 Sona Cullen PA-C [address] [place] [address] Belling Machine Operator Family Medicine 07/30/24 Cheyanne Cortez APRN.PLANOGRAPH OPERATOR [address] [place] [address] Belling Machine Operator Internal Medicine 07/30/24 Sg Clemons PA-C [address] [place] [address] Belling Machine Operator Family Medicine 07/30/24 Plant Machinist Relationship Specialty Start Date End Date Mariluz High MD [address] [place] [address] PCP - General Internal Medicine 03/31/16 Cheyanne Cortez APRN.PLANOGRAPH OPERATOR [address] [place] [address] Belling Machine Operator Internal Medicine 07/30/24 Plant Machinist Relationship Specialty Start Date End Date Mariluz High MD [address] [place] [address] PCP - General Internal Medicine 03/31/16 Cheyanne Cortez APRN.PLANOGRAPH OPERATOR [address] [place] [address] Belling Machine Operator Internal Medicine 07/30/24 Plant Machinist Relationship Specialty Start Date End Date Mariluz High MD [address] [place] [address] PCP - General Internal Medicine 03/31/16 Sona Cullen PA-C [address] [place] [address] Belling Machine Operator Family Medicine 07/30/24 11/12/24 Cheyanne Cortez APRN.PLANOGRAPH OPERATOR [address] [place] [address] Belling Machine Operator Internal Medicine 07/30/24 Sg Clemons PA-C [address] [place] [address] Belling Machine Operator Family [facility] 07/30/24 11/12/24 Plant Machinist Relationship Specialty Start Date End Date Mariluz High MD [address] [place] [address] PCP - General Internal Medicine 03/31/16 Sona Cullen PA-C [address] [place] [address] Belling Machine Operator Family Medicine 07/30/24 11/12/24 Cheyanne Cortez APRN.PLANOGRAPH OPERATOR [address] [place] [address] Belling Machine Operator Internal Medicine 07/30/24 Sg Clemons PA-C [address] [place] [address] Belling Machine Operator Family Medicine 07/30/24 11/12/24 Plant Machinist Relationship Specialty Start Date End Date Mariluz High MD [address] [place] [address] PCP - General Internal Medicine 03/31/16 Kaley CortezyFIFI.PLANOGRAPH OPERATOR [address] [place] [address] Belling Machine Operator Internal Medicine 07/30/24 Team Status: Active Member Role Status Dates Reji Carr INTERPRETER, INTERPRETER-C Primary Care Provider Active Team Status: Inactive Member Role Status Dates Reji Carr INTERPRETER, INTERPRETER-C Primary Care Provider Active Start: February 06, 2025 End: February 06, 2025 Dr. Mason Styles MD Emergency Provider Active Sta rt: February 06, 2025 End: February 06, 2025 Goals (unrecognized section and content) Goals may be documented in a n alternate sectionGoals may be documented in an alternate section Scheduled Active and Recently Administ ered Medications (unrecognized section and content) Medication Order 06/14/2024 06/15/2024 06/16/2024 fluorescein 1 MG ophthalmic strip 1 strip 1 strip, Right Eye, Once, On Wed06/16/24 at 1435, For 1 dose 1435 (Canceled Entry - Provider: Automatic Discharge Provider - Comment: Automatically canceled at discontinue of medication order) tetracaine (Altacaine) 0.5 % ophthalmic solution 1-2 drop 1-2 drop, Right Eye, Once, On Wed06/16/24 at 1435, For 1 dose 1435 (Canceled Entry - Provider: Automatic Discharge Provider - Comment: Automatically canceled at discontinue of medication order) FOR RECORDS PERTAINING TO PATIENTS WHO ARE OR HAVE BEEN ENROLLED IN A CHEMICAL DEPENDENCY/SUBSTANCEABUSE PROGRAM, SOME INFORMATION MAY BE OMITTED. This clinical summary was aggregated from multiple sources. Caution should be exercised in using it in the provision of clinical care. This summary normalizes information from multiple sources, and as a consequence, information in this document may materially change the coding, format and clinical context of patient data. In addition, data may be omitted in some cases. CLINICAL DECISIONS SHOULD BE BASED ON THE PRIMARY CLINICAL RECORDS. [employer] provides no warranty or guarantee of the accuracy or completeness of information in this document.
[2025-02-08 22:45] LABS: Magnesium 1.7 mg/dL (1.5-2.2); Thyroid Stim Hormone (TSH) 0.558 uIU/mL (0.300-4.200)
[2025-02-08] MEDS: 0.9% Normal Saline (1000mL) 1,000 ML 70 ML IV (23:41)
[2025-02-09] VITALS (10 sets, daily range): BP systolic 106–136; BP diastolic 53–98; PULSE 72–104; RESP 14–20; TEMP 36.6–37; O2SAT 88–93; BMI 37.3
[2025-02-09] MEDS: MELATONIN 10 MG TABLET 5 MG PO (00:15)
[2025-02-09] MEDS: Lactobacillis Acidophilus 1 CAP PO ×3 (00:15→14:01)
[2025-02-09] MEDS: traZODone 100 MG Tablet 300 MG PO (00:16)
[2025-02-09] MEDS: oxyCODONE 5 MG Tablet 10 MG PO (00:28)
[2025-02-09] MEDS: LORazepam 1 MG Tablet PO (00:29)
[2025-02-09] MEDS: Magnesium Sulfate 2 GM in Dextrose 5%-Water (100mL Bag) 100 ML IV (01:33)
[2025-02-09 06:58] LABS: Absolute Lymphocyte Count 1.26 X10^3/uL (0.83-4.51); Absolute Neutrophil Count 8.9 X10^3/uL (2.0-7.7); Basophil# 0.03 X10^3/uL; Basophil% 0.3 % (0-1); Hematocrit 47.9 % (37-47); Lymphocyte # 1.26 X10^3/ul (0.83-4.51); Lymphocyte % 11.8 % (19-41); Mean Corp Hgb Conc 31.3 g/dL (32-36); Mean Corpuscular Hgb 30.7 pg (27.0-32.0); Mean Platelet Vol. 9.4 fl (6.2-12.0); Monocyte# 0.43 X10^3/uL; NRBC Flagged by Analyzer 0 % (0-5); Neutrophil # 8.88 X10^3/uL (2.7-7.7); Neutrophil % 83.2 % (47-70); Platelet Count 237 K/mm3 (150-450); RBC Distribution Width CV 14.8 % (11.6-14.6); RBC Distribution Width SD 54.1 fl (35.1-43.9); Red Blood Count 4.89 M/mm3 (4.2-5.4); White Blood Count 10.7 K/mm3 (4.4-11.0)
[2025-02-09] MEDS: Ipratropium/Albuterol Sulfate 3 ML AMPUL.NEB INHALATION (07:00)
[2025-02-09 07:21] LABS: Allen Test Positive; Base Excess 15 mmol/L (-2 to +2); Bicarbonate 40.7 mmol/L (22-26); Blood Gas Specimen Type ART; Mode Not entered; O2 Delivery Device Cannula; PO2 50 mmHG (75-100); SITE L Radial; SO2 82 % (95-99); Total Carbon Dioxide 43 mmol/L; pCO2 72.1 mmHg (35-45); pH 7.36 (7.35-7.45)
[2025-02-09 07:25] LABS: ALB/GLOB Ratio 1.7 RATIO (0.9-2.4); AST(SGOT) 16 U/L (<=31); Alanine Aminotransfer ALT/SGPT 16 U/L (<=34); Albumin, Serum 3.7 g/dL (3.4-4.8); Alkaline Phosphatase 53 U/L (35-104); Anion Gap 7 (5-15); BUN 20 mg/dL (4-19); BUN/Creat Ratio 23.8 RATIO (10-20); Calcium,Total 8.9 mg/dL (7.6-11.0); Carbon Dioxide 34.7 mmol/L (21.0-32.0); Chloride 98 mmol/L (98-108); Creatinine, Serum 0.83 mg/dL (0.70-1.20); EST Glomerular Filtration Rate 80 (>60); Estimated Creatinine Clearance 81.24 ml/min (50-250); Globulin 2.2 g/dL (2.2-4.2); Glucose 143 mg/dL (70-99); Phosphorus 3.6 mg/dL (2.7-4.5); Potassium 4.7 mmol/L (3.3-5.1); Protein, Total 5.9 g/dL (5.9-8.4); Sodium Level 140 mmol/L (133-145); Total Bilirubin 0.21 mg/dL (0.00-1.30)
[2025-02-09] MEDS: buPROPion (XL) 300 MG TABLET.XL PO (08:41)
[2025-02-09] MEDS: Cholecalciferol (VIT D3) 25 MCG TABLET (1,000 UNITS) PO (08:41)
[2025-02-09] MEDS: Montelukast 10 MG Tablet PO (08:41)
[2025-02-09] MEDS: Furosemide 40 MG Tablet PO (08:41)
[2025-02-09] MEDS: Spironolactone 25 MG Tablet PO (08:41)
[2025-02-09] MEDS: Vibegron 75 MG TABLET PO (08:41)
[2025-02-09] MEDS: Famotidine 20 MG Tablet 40 MG PO (08:41)
[2025-02-09] MEDS: DULoxetine Hcl 60 MG Capsule PO (08:42)
[2025-02-09] MEDS: Enoxaparin 40 MG/0.4 ML Syringe SC (08:42)
[2025-02-09] MEDS: MethylPREDNISolone 125 MG/2 ML Vial 60 MG IV (08:43)
[2025-02-09] MEDS: 0.9% Saline Lock 10 ML Syringe IV (08:44)
[2025-02-09 10:51] LABS: Color, Urine Yellow (Yellow); Glucose, Dipstick Normal (Normal); Ketone-Dipstick Negative (Negative); Leukocyte Esterase-Dipstick Negative /ul (Negative); Mucous, Urine 0 SEEN /hpf (<or=2+); Nitrite-Dipstick Negative (Negative); Occult Blood-Urine 50 /ul (Negative); Protein-Dipstick 15 mg/dl (Negative); Specific Gravity, Urine 1.015 (1.002-1.030); Urine Bilirubin Dipstick Negative (Negative); Urine Clarity Clear (Clear); Urine Urobilinogen Normal (Normal)
--- NOTE | 2025-02-09 10:57 | CASEMGMT ---
SW called [facility]. Patient was active with them until last night when patient revoked Hospice to come into the hospital. Should patient want to resume Hospice with them [facility] would just need to let them know. MICHELLE to follow for d/c planning. Tana Clarke IMPROVEMENT DIRECTORLita VIRGEN
[2025-02-09 10:59] LABS: Red Blood Cells-Urine 0-5 SEEN /hpf (0-5); Squamous Epithelial Cells - UA 0-5 SEEN /hpf (5-10)
[2025-02-09 11:00] LABS: Bacteria 1+ /hpf (None Seen); White Blood Cells 0-5 SEEN /hpf (0-5)
--- NOTE | 2025-02-09 14:14 | PCM.DC ---
Discharge Instructions DC O2, CPAP, BIPAP needs Home O2 Discharge instructions: Yes Type of respiratory needs?: Oxygen Oxygen frequency: Continuous Continuous oxygen liters per minute: 5 and With Ambulation Oxygen liters per minute during Ambulation: 6 Dressing / Incision Discharge Activity: Use Walker Follow Up Care Test Results: Test results from this visit will be discussed in further detail at your follow-up appointment, if applicable. Discharge Plan Admission Admit Date/Time: 02/08/25 21:50 Primary Reason for Your Visit: Shortness of breath, altered mental status Attending Provider: Serina Lombardo Primary Care Provider: Reji Carr SPECIAL SERVICE OFFICER Consulting Providers: Samson Vásquez Instructions Patient Instructions: Pneumonia Community Acquired Additional Instructions / Restrictions: DISCHARGE INSTRUCTIONS PLEASE READ *Please take this with you to your next doctors appointment* -Please follow up with your mechanical manufacturing engineer upon discharge -You will be discharged on a prednisone taper: -60 mg daily x3 days -50mg daily x3 days -40mg daily x3 days -30mg daily x3 days -20mg daily x3 days -10mg daily x3 days -You will be discharged on another 7 days of levofloxacin for your pneumonia -Please use your nebulizers every 4-6 hours at home in addition to your other inhalers -Please call your primary care provider's office upon discharge to schedule a hospital follow up within 1 week. -For any concerning signs or symptoms please call 911 or proceed to the nearest emergency department Discharge Orders/Prescriptions Prescriptions: New prednisone 20 mg Tablet See Taper PO BREAKFAST Qty: 32 0RF Taper: Prednisone Taper 60 mg WITH BREAKFAST for 3 Days and 0 Hour 50 mg WITH BREAKFAST for 3 Days and 0 Hour 40 mg WITH BREAKFAST for 3 Days and 0 Hour 30 mg WITH BREAKFAST for 3 Days and 0 Hour 20 mg WITH BREAKFAST for 3 Days and 0 Hour 10 mg WITH BREAKFAST for 3 Days and 0 Hour levofloxacin 750 mg tablet 750 mg PO DAILY Qty: 7 0RF Continued potassium chloride 10 mEq capsule, extended release 10 meq PO BID albuterol sulfate 2.5 mg /3 mL (0.083 %) solution for nebulization 2.5 mg inhalation Q4H PRN PRN (Reason: wheezing/sob) Patient Comments: Use 3 mL via nebulizer every 4 hours as needed for wheezing/shortness of breath. J44.9 trazodone 100 mg tablet 300 mg PO DAILY nitroglycerin 0.4 mg Tablet, Sublingual 0.4 mg SUBLINGUAL Q5M PRN (Reason: Chest Pain) Rx Instructions: do not exceed 3 doses per episode albuterol sulfate 90 mcg/actuation HFA aerosol inhaler 90 mcg INHALATION Q4H PRN PRN (Reason: wheezing/sob) Patient Comments: Inhale 2 Puffs as instructed every 4 hours as needed for wheezing/shortness of breath. ipratropium bromide 0.02 % solution 2.5 ml inhalation Q6H PRN PRN (Reason: wheezing/sob) bupropion HCl 300 mg tablet extended release 24 hr 300 mg PO DAILY ondansetron 4 mg tablet,disintegrating 4 mg PO Q8H PRN PRN (Reason: Nausea) Qty: 10 0RF furosemide 40 mg tablet 40 mg PO DAILY lorazepam 1 mg tablet 1 mg PO Q4H PRN duloxetine 60 mg capsule,delayed release(DR/EC) 60 mg PO DAILY cholecalciferol (vitamin D3) [Vitamin D3] 25 mcg (1,000 unit) tablet 25 mcg PO DAILY Trelegy Ellipta 200-62.5-25 mcg blister with device 1 ea inhalation DAILY montelukast 10 mg tablet 10 mg PO DAILY oxycodone 10 mg tablet 10 mg PO Q4H PRN PRN (Reason: pain) mirabegron [Myrbetriq] 50 mg tablet extended release 24 hr 50 mg PO DAILY spironolactone 25 mg tablet 25 mg PO DAILY famotidine 20 mg tablet 40 mg PO DAILY melatonin 5 mg tablet 5 mg PO DAILY sennosides-docusate sodium [2-in-1 Laxative] 8.6-50 mg tablet 2 tab-cap PO DAILY PRN (Reason: constipation) Held prednisone 10 mg tablet 10 mg PO DAILY Hold Instructions: Resume on 02/21/25. Hold until prednisone taper is finished and then resume at the discretion of your outpatient provider Referrals / Follow Up: Reji Carr NP, SPECIAL SERVICE OFFICER-C [Primary Care Provider] - Within 1 Week Disposition Disposition (needs filled in before D/C Order can be placed): Hospice in Home
--- NOTE | 2025-02-09 14:17 | CASEMGMT ---
SW spoke with patient and her daughter. Introduced self and role at [facility]. SW asked if the plan is to go back on Hospice. Patient's daughter stated that was likely going to be the plan. She was going to call hospice when they get home. SW let them know SW will update Hospice and send d/c instructions. Tana VIRGEN
--- NOTE | 2025-02-09 14:47 | PCM.DC.SUM ---
Providers Date of Admission: 02/08/25 Date of Discharge: 02/09/25 Primary Care Physician: TIFFANIE Orellana Reason For Visit: BILATERAL PNA, AE COPD, ACUTE HYPOXIC Diagnosis Discharge Diagnosis (1) Bilateral pneumonia: Status: Acute Code(s): J18.9 - Pneumonia, unspecified organism Qualifiers: Lung location: unspecified part of lung Pneumonia type: due to unspecified organism Qualified Code(s): J18.9 - Pneumonia, unspecified organism (2) COPD with exacerbation: Status: Chronic Code(s): J44.1 - Chronic obstructive pulmonary disease with (acute) exacerbation (3) Tobacco abuse: Status: Acute Code(s): Z72.0 - Tobacco use (4) Acute on chronic respiratory failure with hypoxia and hypercapnia: Status: Chronic Code(s): J96.21 - Acute and chronic respiratory failure with hypoxia; J96.22 - Acute and chronic respiratory failure with hypercapnia (5) Obesity (BMI 30-39.9): Status: Acute Code(s): E66.9 - Obesity, unspecified Plan #Bilateral pneumonia # Acute on chronic hypoxic hypercapnic respiratory failure # AE COPD # Hypertension # Depression # GERD Medications at Discharge Home Medications albuterol sulfate 2.5 mg/3 mL (0.083 %) solution for nebulization 2.5 mg inhalation Q4H PRN PRN wheezing/sob 12/20/22 albuterol sulfate 90 mcg/actuation aerosol inhaler 90 mcg inhalation Q4H PRN PRN wheezing/sob 12/20/22 bupropion HCl 300 mg 24 hr tablet, extended release 300 mg PO DAILY 12/20/22 ipratropium bromide 0.02 % solution for inhalation 2.5 ml inhalation Q6H PRN PRN wheezing/sob 12/20/22 nitroglycerin 0.4 mg sublingual tablet 0.4 mg sublingual Q5M PRN Chest Pain 12/20/22 ondansetron 4 mg disintegrating tablet 4 mg PO Q8H PRN PRN Nausea #10 tabs 12/20/22 potassium chloride 10 mEq capsule,extended release 10 meq PO BID 12/20/22 trazodone 100 mg tablet 300 mg PO DAILY 12/20/22 cholecalciferol (vitamin D3) 25 mcg (1,000 unit) tablet (Vitamin D3) 25 mcg PO DAILY 02/08/25 duloxetine 60 mg capsule,delayed release 60 mg PO DAILY neuropathic pain 02/08/25 famotidine 20 mg tablet 40 mg PO DAILY acid reflux 02/08/25 fluticasone fur. 200 mcg-umeclid 62.5 mcg-vilant 25 mcg inhalat.powder (Trelegy Ellipta) 1 ea inhalation DAILY 02/08/25 furosemide 40 mg tablet 40 mg PO DAILY 02/08/25 lorazepam 1 mg tablet 1 mg PO Q4H PRN 02/08/25 melatonin 5 mg tablet 5 mg PO DAILY insomnia 02/08/25 mirabegron 50 mg tablet,extended release 24 hr (Myrbetriq) 50 mg PO DAILY 02/08/25 montelukast 10 mg tablet 10 mg PO DAILY allergies 02/08/25 oxycodone 10 mg tablet 10 mg PO Q4H PRN PRN pain 02/08/25 prednisone 10 mg tablet 10 mg PO DAILY dyspnea 02/08/25 Held on 02/09/25. Instructions: Resume on 02/21/25. Hold until prednisone taper is finished and then resume at the discretion of your outpatient provider sennosides 8.6 mg-docusate sodium 50 mg tablet (2-in-1 Laxative) 2 tab-cap PO DAILY PRN constipation 02/08/25 spironolactone 25 mg tablet 25 mg PO DAILY blood pressure 02/08/25 levofloxacin 750 mg tablet 750 mg PO DAILY #7 tabs 02/09/25 prednisone 20 mg tablet See Taper PO BREAKFAST #32 tabs 02/09/25 Hospital Course Summary of Care Provided Minutes Spent on Discharge: 35 Hospital Course: Per HPI: FRANCIS DIAMOND, is a 59 F with a past medical history of essential hypertension; on spironolactone and furosemide, obesity; with BMI of 38.9 this admission, history of tobacco abuse; with subsequent COPD, chronic respiratory failure on 5 LNC nocturnal (but recently has been wearing continuously), depression with anxiety; on duloxetine, bupropion, trazodone q. HS and as needed lorazepam, OAB; on mirabegron, GERD; on famotidine, chronic lower extremity lymphedema plus OA; on trazodone daily plus oxycodone as needed who presents to [facility] ER complaining of shortness of breath. Ms. Diamond reports her symptoms began approximately 3 days prior to admission with a gradual-onset of dyspnea on exertion that progressed to shortness of breath at rest. She also admits to wheezing and nonproductive cough with patient having to use her nocturnal supplemental oxygen continuously due to ongoing dyspnea. She came to the ER 2 days ago and had an ABG that revealed hypercapnia but she refused chest x-ray or BiPAP in addition to being unhappy with the staff at that time so she opted to leave AMA. Unfortunately, her symptoms worsened so she decided to come back after her neighbor noted she was confused this morning with ongoing shortness of breath and wheezing. She admits to an episode of pleuritic chest pain made worse with deep breathing and cough. There was no report of fever, chills, changes in vision, discharge from eyes, abdominal pain, nausea, vomiting, diarrhea, constipation, dysuria, hematuria, headache or rash. In the ER she was noted to have a CTA of the chest w/wo contrast that revealed no evidence of PE but did reveal bilateral consolidating airspace disease consistent with Pneumonia with clinical evidence of AE COPD with a corresponding ABG that revealed pH 7.31/pCO2 78.6 mmHg/PaO2 61 mmHg/HCO3 39.2 mmol/L at 87% on 6L NC prompting patient to be started on BiPAP for [id number] Hypoxic and Hypercapnic Respiratory Failure and she was then admitted to the PCU for ongoing care for status is expected to extend beyond 2 midnights. Also known EKG QTc only 420, was not prolonged. INTERVAL HISTORY: Patient evaluated in the morning, pCO2 on ABG better though still elevated (given pH normalized w/ PCO2 of 72 suspect she chronically retains) but clinically patient feels she is back or the very least very close to her baseline and would like to go home. Had patient ambulated and per patient's nurse she actually ambulated well without any severe dyspnea or needs to stop, maintain saturations at 91% on 6 L. Discussed with patient and daughter at bedside potential benefits of staying for another day of IV antibiotics and patient adamant that she wants to be discharged home. Discussed risks of going home and having worsening respiratory status and that if she were not to come back if respiratory status worsened it could lead to . Patient verbalized her understanding, given she is able to ambulate well and maintain oxygen saturations on 5 to 6 L (on 5 L at baseline) and was not significantly limited by shortness of breath in regards to her ambulation feel it is not unreasonable to discharge patient home on antibiotics and steroids with strict return precautions, pt and daughter report she does have her Trelegy at home as well as nebulizers and she follows w/ a rod tape operator and has an appointment coming up (per pt). Patient understands the risks of discharge and risks of not returning should she begin to worsen at home, she verbalized understanding and is awake and alert and oriented and able to make these decisions for herself. Daughter at bedside during this conversation. Patient with no new or acute complaints at time of discharge and again reports breathing is much better than it was. Discharge instructions as follows: -Please follow up with your rod tape operator upon discharge -You will be discharged on a prednisone taper: -60 mg daily x3 days -50mg daily x3 days -40mg daily x3 days -30mg daily x3 days -20mg daily x3 days -10mg daily x3 days -You will be discharged on another 7 days of levofloxacin for your pneumonia -Please use your nebulizers every 4-6 hours at home in addition to your other inhalers -Please call your primary care provider's office upon discharge to schedule a hospital follow up within 1 week. -For any concerning signs or symptoms please call 911 or proceed to the nearest emergency department Physical Exam Narrative General: Alert, oriented, no apparent distress HEENT: Atraumatic, normocephalic Eyes: Anicteric, normal conjunctiva, extraocular movements grossly intact Neck: Supple Respiratory: Diffuse wheezes, coarse at the bases but does not appear in acute respiratory distress Cardiovascular: Regular rate and seems to have sinus arrhythmia GI: Soft, nontender, nondistended Extremities: No significant pitting edema Musculoskeletal: Moving all extremities Neuro: No overt focal neurological deficits Skin: No rashes appreciated Psych: Patient irritable and argumentative Weight / BMI Weight Weight: 98.7 kg Body Mass Index (BMI) 37.3 ABG / Lab / Microbiology Data 02/09/25 06:17 02/09/25 06:17 Laboratory: Laboratory Results - last 24 hr 02/08/25 20:35: Magnesium 1.7, Troponin T Hi Sens 2 Hr 14, TSH 0.558 02/09/25 06:17: WBC 10.7, RBC 4.89, Hgb 15.0, Hct 47.9 H, MCV 98.0, MCH 30.7, MCHC 31.3 L, RDW Std Deviation 54.1 H, RDW Coeff of Clemente 14.8 H, Plt Count 237, MPV 9.4, Immature Gran % (Auto) 0.700, Neut % (Auto) 83.2 H, Lymph % (Auto) 11.8 L, [place] % (Auto) 4.0, Eos % (Auto) 0.0, Baso % (Auto) 0.3, Absolute Neuts (auto) 8.9 H, Absolute Lymphs (auto) 1.26, Nucleated RBC % 0, Sodium 140, Potassium 4.7, Chloride 98, Carbon Dioxide 34.7 H, Anion Gap 7, BUN 20 H, Creatinine 0.83, Estim Creat Clear Calc 81.24, Est GFR (MDRD) Non-Af 80, BUN/Creatinine Ratio 23.8 H, Glucose 143 H, Calcium 8.9, Phosphorus 3.6, Total Bilirubin 0.21, AST 16, ALT 16, Alkaline Phosphatase 53, Total Protein 5.9, Albumin 3.7, Globulin 2.2, Albumin/Globulin Ratio 1.7 02/09/25 10:35: Urine Color Yellow, Urine Clarity Clear, Urine pH 7.0, Ur Specific Carney 1.015, Urine Protein 15 H, Urine Glucose (UA) Normal, Urine Ketones Negative, Urine Occult Blood 50 H, Urine Nitrite Negative, Urine Bilirubin Negative, Urine Urobilinogen Normal, Ur Leukocyte Esterase Negative, Urine RBC 0-5 SEEN, Urine WBC 0-5 SEEN, Ur Squamous Epith Cells 0-5 SEEN, Urine Bacteria 1+, Urine Mucus 0 SEEN Microbiology: Microbiology 02/09/25 12:05 Urine, Clean Catch Legionella Antigen - Final 02/09/25 12:05 Urine, Clean Catch Streptococcus pneumoniae Antigen (M - Final 02/08/25 17:51 Mucosa - Nose SARS-CoV-2, Influenza & RSV (PCR) - Final ABG: ABG 02/08/25 02/09/25 17:57 07:15 Specimen Type BASILIA ART Sample Site Not entered L Radial pH 7.36 Bicarbonate Actual 40.7 H Total CO2 43 Base Excess 15 H O2 Saturation 82 L O2 % 6.0 ABG pCO2 72.1 H* ABG pO2 50 L Brian Test Positive VBG pH 7.33 VBG pO2 74 H VBG HCO3 39 H VBG Total CO2 41 H VBG O2 Sat (Calc) 93 H VBG Base Excess 13 H POC Mix VBG pCO2 Pt Tmp 72.6 H* O2 Delivery Device Not entered Cannula Vent Mode Not entered Crit Call To/Read Back Yes Yes Blood Gas Notified Cassy Michelle Vásquez Blood Gas Notified Time 17:59:00 07:18:55 Radiography Diagnostic Testing: Radiology Impression Chest X-Ray 02/08/25 17:50 IMPRESSION: As above. Reading Location: [id number] Chest CTA 02/08/25 18:59 IMPRESSION: Bilateral consolidating airspace disease/pneumonia. No PE. Other findings as above. Reading Location: [facility] Instructions Discharge Diet: - (DASH diet) Discharge Activity: Use Walker DC O2, CPAP, BIPAP Needs Home O2 Discharge instructions: Yes Type of respiratory needs?: Oxygen Oxygen frequency: Continuous Continuous oxygen liters per minute: 5 and With Ambulation Oxygen liters per minute during Ambulation: 6 DC home with Oxygen: Yes Home O2 MD Review: I have reviewed the oxygen testing, and the patient qualifies for home oxygen equipment and portability. The patient is mobile in the home and the community. Meaningful Use Info Meaningful Use Meaningful Use Diagnoses (Choose all that apply): None applicable Ischemic Stroke Statin Dosing Therapy Reference: STATIN DOSE THERAPY REFERENCE: * Patients > 75 years receive moderate or high dose statin therapy. * Patients 75 years or YOUNGER should receive HIGH intensity statin dose unless contraindicated. You will be required to document reason for non-treatment if statin daily dose does not meet guidelines. HIGH DOSE STATIN THERAPY DAILY Atorvastatin > than or = to 40 mg Rosuvastatin > than or = to 20 mg Amlodipine + Atorvastatin > than or = to 2.5/40 mg Ezetimibe + Simvastatin 10/80 mg Simvastatin 80mg Discharge Plan Admission Admit Date/Time: 02/08/25 21:50 Primary Reason for Your Visit: Shortness of breath, altered mental status Attending Provider: Serina Lombardo Primary Care Provider: Reji Carr NP Consulting Providers: aSmson Vásquez Instructions Patient Instructions: Pneumonia Community Acquired Additional Instructions / Restrictions: DISCHARGE INSTRUCTIONS PLEASE READ *Please take this with you to your next doctors appointment* -Please follow up with your rod tape operator upon discharge -You will be discharged on a prednisone taper: -60 mg daily x3 days -50mg daily x3 days -40mg daily x3 days -30mg daily x3 days -20mg daily x3 days -10mg daily x3 days -You will be discharged on another 7 days of levofloxacin for your pneumonia -Please use your nebulizers every 4-6 hours at home in addition to your other inhalers -Please call your primary care provider's office upon discharge to schedule a hospital follow up within 1 week. -For any concerning signs or symptoms please call 911 or proceed to the nearest emergency department Discharge Orders/Prescriptions Prescriptions: New prednisone 20 mg Tablet See Taper PO BREAKFAST Qty: 32 0RF Taper: Prednisone Taper 60 mg WITH BREAKFAST for 3 Days and 0 Hour 50 mg WITH BREAKFAST for 3 Days and 0 Hour 40 mg WITH BREAKFAST for 3 Days and 0 Hour 30 mg WITH BREAKFAST for 3 Days and 0 Hour 20 mg WITH BREAKFAST for 3 Days and 0 Hour 10 mg WITH BREAKFAST for 3 Days and 0 Hour levofloxacin 750 mg tablet 750 mg PO DAILY Qty: 7 0RF Continued potassium chloride 10 mEq capsule, extended release 10 meq PO BID albuterol sulfate 2.5 mg /3 mL (0.083 %) solution for nebulization 2.5 mg inhalation Q4H PRN PRN (Reason: wheezing/sob) Patient Comments: Use 3 mL via nebulizer every 4 hours as needed for wheezing/shortness of breath. J44.9 trazodone 100 mg tablet 300 mg PO DAILY nitroglycerin 0.4 mg Tablet, Sublingual 0.4 mg SUBLINGUAL Q5M PRN (Reason: Chest Pain) Rx Instructions: do not exceed 3 doses per episode albuterol sulfate 90 mcg/actuation HFA aerosol inhaler 90 mcg INHALATION Q4H PRN PRN (Reason: wheezing/sob) Patient Comments: Inhale 2 Puffs as instructed every 4 hours as needed for wheezing/shortness of breath. ipratropium bromide 0.02 % solution 2.5 ml inhalation Q6H PRN PRN (Reason: wheezing/sob) bupropion HCl 300 mg tablet extended release 24 hr 300 mg PO DAILY ondansetron 4 mg tablet,disintegrating 4 mg PO Q8H PRN PRN (Reason: Nausea) Qty: 10 0RF furosemide 40 mg tablet 40 mg PO DAILY lorazepam 1 mg tablet 1 mg PO Q4H PRN duloxetine 60 mg capsule,delayed release(DR/EC) 60 mg PO DAILY cholecalciferol (vitamin D3) [Vitamin D3] 25 mcg (1,000 unit) tablet 25 mcg PO DAILY Trelegy Ellipta 200-62.5-25 mcg blister with device 1 ea inhalation DAILY montelukast 10 mg tablet 10 mg PO DAILY oxycodone 10 mg tablet 10 mg PO Q4H PRN PRN (Reason: pain) mirabegron [Myrbetriq] 50 mg tablet extended release 24 hr 50 mg PO DAILY spironolactone 25 mg tablet 25 mg PO DAILY famotidine 20 mg tablet 40 mg PO DAILY melatonin 5 mg tablet 5 mg PO DAILY sennosides-docusate sodium [2-in-1 Laxative] 8.6-50 mg tablet 2 tab-cap PO DAILY PRN (Reason: constipation) Held prednisone 10 mg tablet 10 mg PO DAILY Hold Instructions: Resume on 02/21/25. Hold until prednisone taper is finished and then resume at the discretion of your outpatient provider Referrals / Follow Up: Reji Carr NP, PLANISHING PRESS OPERATOR-C [Primary Care Provider] - Within 1 Week Disposition Disposition (needs filled in before D/C Order can be placed): Hospice in Home Charges/Coding Visit Charges Inpatient E&M: 27658 Disch Hosp >30min
--- NOTE | 2025-02-09 15:06 | CASEMGMT ---
MICHELLE faxed d/c instructions and H&P to [facility]. Tana Clarke SHEET COMBINING OPERATOR PARAM
== END 2025-02-09 17:22 | disposition hospice, home (50) | DRG 193 ==
LOC: ED 20:33 → PCU 22:05
PROVIDERS: Physician Assistant; Admitting Provider Internal Medicine; Emergency Provider Surgery; PCP Nurse Practitioner Primary Care; Referring Provider Surgery; Visit Provider Internal Medicine
DX: J18.9 Pneumonia, unspecified organism (principal); J96.21 Acute and chronic respiratory failure with hypoxia; J96.22 Acute and chronic respiratory failure with hypercapnia; J44.0 Chronic obstructive pulmonary disease with (acute) lower respiratory infection; J44.1 Chronic obstructive pulmonary disease with (acute) exacerbation; I10 Essential (primary) hypertension; Z68.38 Body mass index [BMI] 38.0-38.9, adult; F41.8 Other specified anxiety disorders; M19.90 Unspecified osteoarthritis, unspecified site; F17.210 Nicotine dependence, cigarettes, uncomplicated; K21.9 Gastro-esophageal reflux disease without esophagitis; I89.0 Lymphedema, not elsewhere classified; J98.01 Acute bronchospasm; E66.9 Obesity, unspecified; Z79.891 Long term (current) use of opiate analgesic; Z79.2 Long term (current) use of antibiotics; R07.81 Pleurodynia; Z79.51 Long term (current) use of inhaled steroids; Z79.899 Other long term (current) drug therapy; Z79.52 Long term (current) use of systemic steroids; Z88.8 Allergy status to other drugs, medicaments and biological substances; Z88.1 Allergy status to other antibiotic agents; Z90.49 Acquired absence of other specified parts of digestive tract; Z99.81 Dependence on supplemental oxygen; R41.82 Altered mental status, unspecified; Z51.5 Encounter for palliative care; Z66 Do not resuscitate; Z86.79 Personal history of other diseases of the circulatory system
CPT/HCPCS: 36415; 36600; 71045; 71275; 80048; 80053; 81001; 82803; 83605; 83735; 84100; 84443; 84484; 85025; 87449; 87631; 93005; 94002; 94003; 94640; 94762; 97162; 97166; 99252; 99284; 99285; Q9967; A4216; G0463